=== PATIENT | male | born 1955 | race African-American/Black ===

== ENCOUNTER 2017-01-06 11:33 | Emergency (ER) | payer OTHER, MEDICARE ==
[~2017-01-06] VITALS: Ht 190.5 cm; Wt 108.9 kg
[~2017-01-06 11:33] MED LIST: ALBU83IN; FLUN7IN; MOMETASONE; ORASONE; SING10TA31; TERA10CA3; VICODIN
[2017-01-06] MEDS ORDERED: [UNRECOGNIZED DRUG - CODE] PO (12:03)
[2017-01-06] MEDS ORDERED: LATA5OPD OU (12:03)
[2017-01-06] MEDS ORDERED: BENA25TA9 PO (12:03)
[2017-01-06] MEDS ORDERED: ALLO100T PO (12:03)
[2017-01-06] MEDS ORDERED: AZEL0.1S3 (12:03)
[2017-01-06] MEDS ORDERED: SILD1TAB8 PO (12:03)
[2017-01-06] MEDS ORDERED: CLON0.5T PO (12:03)
[2017-01-06] MEDS ORDERED: OMEP20CA3 PO (12:03)
[2017-01-06] MEDS ORDERED: ASPI1TAB24 PO (12:03)
[2017-01-06] MEDS ORDERED: CLON-412 PO (12:03)
[2017-01-06] MEDS ORDERED: BUDE0.5S6 INH (12:03)
[2017-01-06] MEDS ORDERED: DOXE100CA PO (12:03)
[2017-01-06] MEDS ORDERED: OXYC1TAB23 PO (12:03)
[2017-01-06] MEDS ORDERED: CETI10TA PO (12:03)
[2017-01-06] MEDS ORDERED: K-TA10TA2 PO (12:03)
[2017-01-06] MEDS ORDERED: METO100T PO (12:03)
[2017-01-06] MEDS ORDERED: [UNRECOGNIZED DRUG - CODE] PO (12:03)
[2017-01-06] MEDS ORDERED: HYDR25TAB PO (12:03)
[2017-01-06] MEDS ORDERED: FLUT1SPR2 (12:03)
[2017-01-06] MEDS ORDERED: ASPIRIN 81 MG CHEW TABLET PO ONE (12:15)
[2017-01-06] MEDS ORDERED: MORPHINE 2 MG/ML 1ML SYRINGE IV PRN (12:15)
[2017-01-06] MEDS: NITROGLYCERIN 0.4 MG SUBL TABLET SL PRN ×3 (12:27→12:41)
[2017-01-06 12:28] LABS: BASO % 0.4 % (0.0-1.0); EOS # 0.5 K/mm3 (0.0-0.50); EOS % 5.4 % (0.0-3.0); LARGE UNSTAINED CELL # 0.2 K/mm3 (0.0-0.4); LARGE UNSTAINED CELL % 1.7 % (0.0-4.0); LYMPH # 2.9 K/mm3 (1.5-4.5); LYMPH % 30.9 % (24.0-44.0); MEAN CORPUSCULAR HEMOGLOBIN 32.6 pg (27.0-33.0); MEAN CORPUSCULAR HGB CONC 34.5 g/dl (32.0-36.5); MEAN CORPUSCULAR VOLUME 94.4 fl (80.0-96.0); MONO # 0.3 K/mm3 (0.0-0.8); MONO % 3.6 % (0.0-5.0); NEUTROPHILS # 5.2 K/mm3 (1.8-7.7); NEUTROPHILS % 58.1 % (36.0-66.0); PLATELET COUNT, AUTOMATED 317 k/mm3 (150-450); RED CELL DISTRIBUTION WIDTH 12.6 % (11.5-14.5); WHITE BLOOD COUNT 8.9 K/mm3 (4.0-10.0)
[2017-01-06 12:41] VITALS: BP 135/91
[2017-01-06 12:52] LABS: ANION GAP 7 MEQ/L (8-16); BLOOD UREA NITROGEN 10 MG/DL (7-18); CARBON DIOXIDE LEVEL 26 MEQ/L (21-32); CHLORIDE LEVEL 104 MEQ/L (98-107); CREATININE FOR GFR 1.11 MG/DL (0.70-1.30); GLOMERULAR FILTRATION RATE > 60.0 (>56); GLUCOSE, FASTING 104 MG/DL (70-105); POTASSIUM SERUM 4.2 MEQ/L (3.5-5.1); SODIUM LEVEL 137 MEQ/L (136-145)
--- NOTE | 2017-01-06 12:59 | REP ---
Clinical: Chest pain . Comparison: 08/21/2011 . Technique: PA and lateral. Findings: The mediastinum and cardiac silhouette are normal. The lung french are clear and without acute consolidation, effusion, or pneumothorax. The skeletal structures are intact and normal. Impression: 1. No acute cardiopulmonary process. Signed by Mirza Sommer MD 01/06/2017 12:50 P
[2017-01-06] MEDS ORDERED: GI COCKTAIL 50ML BTL(HYOSCYAMINE/MAALOX/LIDOCAINE VISCOUS)(1:3:1) PO ONE (13:15)
[2017-01-06 18:20] VITALS: BP 181/95
--- NOTE | 2017-01-07 20:42 | ECGEPIP ---
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
--- NOTE | 2017-01-07 20:43 | ECGEPIP ---
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
--- NOTE | 2017-01-07 20:52 | ECGEPIP ---
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
== END 2017-01-06 18:30 | disposition home or self-care (01) ==
LOC: M ED 13:56
DX: K21.9 Gastro-esophageal reflux disease without esophagitis (principal); F43.10 Post-traumatic stress disorder, unspecified; Z87.891 Personal history of nicotine dependence; Z88.8 Allergy status to other drugs, medicaments and biological substances; Z79.899 Other long term (current) drug therapy; Z79.51 Long term (current) use of inhaled steroids

== ENCOUNTER → 2017-06-23 | Outpatient (CLI) | payer OTHER ==
[~2017-06-23] MED LIST changes: +ALLO100T PO; +ASPI-161 PO; +AZEL0.1S3; +BENA25TA10 PO; +BUDE0.5S6 INH; +CETI10TA PO; +CLON-412 PO; +CLON0.5T PO; +D32000CA PO; +DOXE100CA PO; +FLUT1SPR2; +HYDR25TAB PO; +K-TA10TA2 PO; +LATA5OPD OU; +METO100T5 PO; +OMEP20CA3 PO; +OXYC1TAB23 PO; +SILD1TAB8 PO; +[UNRECOGNIZED DRUG - CODE] PO
--- NOTE | 2017-06-23 16:09 | REP ---
Clinical: Abdominal pain and bloating with diarrhea. Technique: Upright view of the chest with supine and upright views of the abdomen and pelvis. Findings: Frontal upright view of the chest demonstrates no acute cardiopulmonary process or free air below the diaphragm to suspect pneumoperitoneum. Supine and upright views of the abdomen and pelvis demonstrate nonspecific bowel gas pattern without obstruction or perforation. No organomegaly. No abnormal calcifications. Skeletal structures normal for age. Impression: Nonspecific bowel gas pattern. Signed by Mirza Sommer MD 06/23/2017 04:02 P
== END ==
LOC: M RAD 15:32
PROVIDERS: ATTEND Physician Assistant Medical
DX: R19.7 Diarrhea, unspecified (principal); R14.0 Abdominal distension (gaseous)

== ENCOUNTER → 2017-06-23 | Outpatient (REF) | payer OTHER, MEDICARE | LOC: M LAB REF 15:31 | PROVIDERS: ATTEND Physician Assistant Medical | DX: R19.7 Diarrhea, unspecified (principal) ==

== ENCOUNTER → 2018-05-05 | Outpatient (CLI) | payer OTHER | LOC: M ONCR 10:00 | DX: C34.31 Malignant neoplasm of lower lobe, right bronchus or lung (principal) | CPT/HCPCS: G0463 ==

== ENCOUNTER → 2018-05-17 | Outpatient (RCR) | payer OTHER | LOC: M ONCR 09:38 | DX: C34.31 Malignant neoplasm of lower lobe, right bronchus or lung (principal) | CPT/HCPCS: 77334 ==

== ENCOUNTER 2018-05-18 15:39 | Outpatient (RCR) | payer OTHER | END 2018-06-17 | LOC: M ONCR 15:39 | DX: C34.31 Malignant neoplasm of lower lobe, right bronchus or lung (principal) | CPT/HCPCS: 77300 ==

== ENCOUNTER → 2018-06-08 | Outpatient (REF) | payer OTHER ==
[2018-06-08 11:23] LABS: MAGNESIUM LEVEL 2.1 MG/DL (1.8-2.4)
[2018-06-08 11:27] LABS: APPEARANCE, URINE CLEAR (CLEAR); BACTERIA, URINE AUTO NEGATIVE (NEGATIVE); BILIRUBIN, URINE AUTO NEGATIVE (NEGATIVE); BLOOD, URINE BLOOD NEGATIVE (NEGATIVE); COLOR, URINE STRAW (YELLOW); GLUCOSE, URINE (UA) AUTO NEGATIVE (NEGATIVE); KETONE, URINE AUTO NEGATIVE (NEGATIVE); LEUKOCYTE ESTERASE, URINE AUTO NEGATIVE (NEGATIVE); NITRITE, URINE AUTO NEGATIVE (NEGATIVE); PROTEIN, URINE AUTO NEGATIVE (NEGATIVE); RBC, URINE AUTO 0 /HPF (0-3); SPECIFIC GRAVITY URINE AUTO 1.008 (1.002-1.035); SQUAMOUS EPITHELIAL CELL UR AU 0 /HPF (0-6); UROBILINOGEN, URINE AUTO 0.2 mg/dL (0.0-2.0); WBC, URINE AUTO 1 /HPF (0-3)
[2018-06-08 12:32] LABS: CREATININE, URINE 53.7 MG/DL; CREATININE,RANDOM URINE 53.7 MG/DL; MALB URINE SIEMENS 51.2 MG/L; MAU/CREAT RATIO 95.3 MCG/MG (0.0-30.0); SODIUM,RANDOM URINE 51 MEQ/L
== END ==
LOC: M LAB REF 10:57
DX: C34.31 Malignant neoplasm of lower lobe, right bronchus or lung (principal); N17.9 Acute kidney failure, unspecified; E86.1 Hypovolemia; Z87.891 Personal history of nicotine dependence; Z85.46 Personal history of malignant neoplasm of prostate

== ENCOUNTER 2018-06-09 10:44 | Inpatient (IN) | payer MEDICARE, OTHER ==
[2018-06-09] MEDS ORDERED: ONDANSETRON 4MG/2ML VIAL (J2405) IV (11:45)
[2018-06-09 12:04] LABS: BASO % 0.2 % (0.0-1.0); EOS % 0.9 % (0.0-3.0); HEMOGLOBIN 10.8 g/dl (13.5-17.5); IMMATURE GRANULOCYTE % 0.7 % (0-3.0); LYMPH % 21.6 % (24.0-44.0); MEAN CORPUSCULAR HEMOGLOBIN 33.3 pg (27.0-33.0); MEAN CORPUSCULAR VOLUME 92.6 fl (80.0-96.0); MONO # 0.1 10^3/uL (0.0-0.8); MONO % 2.4 % (0.0-5.0); NEUTROPHILS # 3.4 10^3/uL (1.8-7.7); NEUTROPHILS % 74.2 % (36.0-66.0); PLATELET COUNT, AUTOMATED 271 10^3/uL (150-450); RED BLOOD COUNT 3.24 10^6/uL (4.30-6.10); RED CELL DISTRIBUTION WIDTH 11.6 % (11.5-14.5); WHITE BLOOD COUNT 4.5 10^3/uL (4.0-10.0)
[2018-06-09 12:24] LABS: ANION GAP 10 MEQ/L (8-16); BLOOD UREA NITROGEN 27 MG/DL (7-18); CALCIUM LEVEL 8.3 MG/DL (8.8-10.2); CARBON DIOXIDE LEVEL 25 MEQ/L (21-32); CHLORIDE LEVEL 96 MEQ/L (98-107); GLOMERULAR FILTRATION RATE 41.8 (>49); GLUCOSE, FASTING 78 MG/DL (70-100); POTASSIUM SERUM 3.5 MEQ/L (3.5-5.1); SODIUM LEVEL 131 MEQ/L (136-145)
[2018-06-09] MEDS ORDERED: PROCHLORPERAZINE 5 MG TAB (S0183) PO (13:00)
[2018-06-09] MEDS ORDERED: SILDENAFIL CITRATE 20 MG TABLET (REVATIO) PO (13:00)
[2018-06-09] MEDS ORDERED: ALBUTEROL 90 MCG/ACT 8GM HFA INHALER INH (13:00)
[2018-06-09] MEDS ORDERED: ONDANSETRON 4 MG TAB (S0181) PO (13:00)
[2018-06-09 13:30] LABS: ALBUMIN 3.3 GM/DL (3.2-5.2); CHOLESTEROL LEVEL 133 MG/DL (<200); CHOLESTEROL RISK RATIO 2.293 (<5); HDL CHOLESTEROL 58 MG/DL (>40); LDL CHOLESTEROL 58.6 MG/DL (<100); MAGNESIUM LEVEL 1.9 MG/DL (1.8-2.4); NON-HDL-C 75 MG/DL; PHOSPHORUS LEVEL 3.1 MG/DL (2.5-4.9); TRIGLYCERIDES LEVEL 82 MG/DL (<150)
[2018-06-09] MEDS ORDERED: HEPARIN SOD (PORCINE) 5000 UNITS/ML VIAL SC (14:00)
[2018-06-09 14:49] LABS: OSMOLALITY SERUM 270 MOSM/KG (275-295)
[2018-06-09 18:28] LABS: OSMOLALITY URINE 394 MOSM/KG (500-800)
[2018-06-09 18:36] LABS: APPEARANCE, URINE CLEAR (CLEAR); BACTERIA, URINE AUTO NEGATIVE (NEGATIVE); BILIRUBIN, URINE AUTO NEGATIVE (NEGATIVE); BLOOD, URINE BLOOD NEGATIVE (NEGATIVE); COLOR, URINE YELLOW (YELLOW); GLUCOSE, URINE (UA) AUTO NEGATIVE (NEGATIVE); KETONE, URINE AUTO NEGATIVE (NEGATIVE); LEUKOCYTE ESTERASE, URINE AUTO NEGATIVE (NEGATIVE); NITRITE, URINE AUTO NEGATIVE (NEGATIVE); PROTEIN, URINE AUTO NEGATIVE (NEGATIVE); RBC, URINE AUTO 2 /HPF (0-3); SQUAMOUS EPITHELIAL CELL UR AU 0 /HPF (0-6); UROBILINOGEN, URINE AUTO 0.2 mg/dL (0.0-2.0); WBC, URINE AUTO 1 /HPF (0-3)
[2018-06-09 18:38] LABS: CREATININE,RANDOM URINE 94.2 MG/DL; SODIUM,RANDOM URINE 64 MEQ/L; TOTAL PROTEIN,RANDOM URINE 13.2 MG/DL (0.0-12.0)
[2018-06-09 19:15] LABS: ALBUMIN 3.4 GM/DL (3.2-5.2); ANION GAP 9 MEQ/L (8-16); BLOOD UREA NITROGEN 26 MG/DL (7-18); CALCIUM LEVEL 8.5 MG/DL (8.8-10.2); CARBON DIOXIDE LEVEL 26 MEQ/L (21-32); CHLORIDE LEVEL 100 MEQ/L (98-107); CREATININE FOR GFR 2.19 MG/DL (0.70-1.30); GLOMERULAR FILTRATION RATE 39.8 (>49); GLUCOSE, FASTING 88 MG/DL (70-100); PHOSPHORUS LEVEL 3.2 MG/DL (2.5-4.9); POTASSIUM SERUM 3.8 MEQ/L (3.5-5.1); SODIUM LEVEL 135 MEQ/L (136-145)
[2018-06-09] MEDS: AZELASTINE 137MCG NASAL SPY 30 ML (ASTELIN) (21:33)
[2018-06-09] MEDS: FLUTICASONE PROP 0.05% NASAL SPRAY 16 GM (FLONASE) (21:33)
[2018-06-09] MEDS: diphenhydrAMINE 50 MG CAP PO (21:34)
[2018-06-09] MEDS: POTASSIUM CHLORIDE 10 MEQ SR TABLET PO (21:34)
[2018-06-09] MEDS: DOXEPIN 25 MG CAP PO (21:34)
[2018-06-09] MEDS: OMEPRAZOLE 20 MG CAP PO (21:34)
[2018-06-09] MEDS: cloNIDine 0.1 MG TAB PO (21:35)
[2018-06-09] MEDS: METOPROLOL TARTRATE 100 MG TAB PO (21:35)
[2018-06-09] MEDS: RIVAROXABAN 15 MG TAB (XARELTO) PO (21:36)
[2018-06-09] MEDS: LATANOPROST 0.005% OPHTH SOLN 2.5 ML OU (21:36)
[2018-06-09] MEDS: DORZOLAMIDE 2% OPHTH SOLN 10 ML BTL OU (21:36)
[2018-06-09] MEDS: clonazePAM 0.5 MG TAB PO (21:41)
[2018-06-09] MEDS: DESMOPRESSIN 4 MCG/ML INJ VIAL/AMP (J2597) SC (22:39)
[2018-06-09] MEDS: D5W 1000 ML IV (22:39)
[2018-06-09 23:01] LABS: ANION GAP 5 MEQ/L (8-16); BLOOD UREA NITROGEN 28 MG/DL (7-18); CALCIUM LEVEL 8.2 MG/DL (8.8-10.2); CARBON DIOXIDE LEVEL 29 MEQ/L (21-32); CHLORIDE LEVEL 101 MEQ/L (98-107); CREATININE FOR GFR 2.23 MG/DL (0.70-1.30); GLUCOSE, FASTING 89 MG/DL (70-100); POTASSIUM SERUM 3.7 MEQ/L (3.5-5.1); SODIUM LEVEL 135 MEQ/L (136-145)
[2018-06-09] MEDS: D5W 1,000 ML IV (23:03)
[2018-06-10] MEDS: D5W 1,000 ML IV (02:40)
[2018-06-10 03:01] LABS: ANION GAP 10 MEQ/L (8-16); BLOOD UREA NITROGEN 26 MG/DL (7-18); CALCIUM LEVEL 7.8 MG/DL (8.8-10.2); CARBON DIOXIDE LEVEL 23 MEQ/L (21-32); CHLORIDE LEVEL 102 MEQ/L (98-107); CREATININE FOR GFR 1.94 MG/DL (0.70-1.30); GLOMERULAR FILTRATION RATE 45.8 (>49); GLUCOSE, FASTING 117 MG/DL (70-100); POTASSIUM SERUM 4.1 MEQ/L (3.5-5.1); SODIUM LEVEL 135 MEQ/L (136-145)
[2018-06-10 08:28] LABS: ANION GAP 7 MEQ/L (8-16); BLOOD UREA NITROGEN 24 MG/DL (7-18); CALCIUM LEVEL 8.2 MG/DL (8.8-10.2); CARBON DIOXIDE LEVEL 23 MEQ/L (21-32); CHLORIDE LEVEL 99 MEQ/L (98-107); CREATININE FOR GFR 1.87 MG/DL (0.70-1.30); GLOMERULAR FILTRATION RATE 47.8 (>49); GLUCOSE, FASTING 117 MG/DL (70-100); POTASSIUM SERUM 4.3 MEQ/L (3.5-5.1); SODIUM LEVEL 129 MEQ/L (136-145)
[2018-06-10 08:48] LABS: CORTISOL AM 0.7 UG/DL (4.3-22.4)
[2018-06-10] MEDS: OMEPRAZOLE 20 MG CAP PO (08:55)
[2018-06-10] MEDS: ALLOPURINOL 100 MG TAB PO (08:55)
[2018-06-10] MEDS: DOXEPIN 25 MG CAP PO (08:55)
[2018-06-10] MEDS: CETIRIZINE (ZyrTEC) 10 MG TAB PO (08:55)
[2018-06-10] MEDS: VITAMIN D 1,000 INTERNATIONAL UNITS TABLET PO (08:55)
[2018-06-10] MEDS: METOPROLOL TARTRATE 100 MG TAB PO (08:55)
[2018-06-10] MEDS: RIVAROXABAN 15 MG TAB (XARELTO) PO (08:56)
[2018-06-10] MEDS: FLUTICASONE PROP 0.05% NASAL SPRAY 16 GM (FLONASE) (08:56)
[2018-06-10] MEDS: AZELASTINE 137MCG NASAL SPY 30 ML (ASTELIN) (08:56)
[2018-06-10] MEDS: DORZOLAMIDE 2% OPHTH SOLN 10 ML BTL OU (08:56)
[2018-06-10] MEDS: cloNIDine 0.1 MG TAB PO (08:56)
[2018-06-10] MEDS: clonazePAM 0.5 MG TAB PO (09:02)
[2018-06-10] MEDS: SODIUM CHLORIDE 0.9% INJ 10 ML SYR IV ×3 (09:25→16:29)
[2018-06-10 11:22] LABS: ANION GAP 7 MEQ/L (8-16); BLOOD UREA NITROGEN 25 MG/DL (7-18); CALCIUM LEVEL 8.4 MG/DL (8.8-10.2); CARBON DIOXIDE LEVEL 26 MEQ/L (21-32); CHLORIDE LEVEL 98 MEQ/L (98-107); CREATININE FOR GFR 1.95 MG/DL (0.70-1.30); GLOMERULAR FILTRATION RATE 45.5 (>49); GLUCOSE, FASTING 97 MG/DL (70-100); POTASSIUM SERUM 4.2 MEQ/L (3.5-5.1); SODIUM LEVEL 131 MEQ/L (136-145)
[2018-06-10 14:36] LABS: ANION GAP 7 MEQ/L (8-16); BLOOD UREA NITROGEN 25 MG/DL (7-18); CALCIUM LEVEL 8.1 MG/DL (8.8-10.2); CARBON DIOXIDE LEVEL 24 MEQ/L (21-32); CHLORIDE LEVEL 100 MEQ/L (98-107); CREATININE FOR GFR 1.84 MG/DL (0.70-1.30); GLOMERULAR FILTRATION RATE 48.7 (>49); GLUCOSE, FASTING 119 MG/DL (70-100); SODIUM LEVEL 131 MEQ/L (136-145)
== END 2018-06-10 16:40 | disposition home or self-care (01) | DRG 644 ==
LOC: M ED 10:44 → M ED INP 11:36 → M MS5PR 17:20
DX: E22.2 Syndrome of inappropriate secretion of antidiuretic hormone (principal); C34.31 Malignant neoplasm of lower lobe, right bronchus or lung; N17.9 Acute kidney failure, unspecified; E86.1 Hypovolemia; Z87.891 Personal history of nicotine dependence; Z85.46 Personal history of malignant neoplasm of prostate; M10.9 Gout, unspecified; K21.9 Gastro-esophageal reflux disease without esophagitis; N18.3 Chronic kidney disease, stage 3 (moderate); J44.9 Chronic obstructive pulmonary disease, unspecified; I12.9 Hypertensive chronic kidney disease with stage 1 through stage 4 chronic kidney disease, or unspecified chronic kidney disease; F43.10 Post-traumatic stress disorder, unspecified; Z88.2 Allergy status to sulfonamides; Z88.8 Allergy status to other drugs, medicaments and biological substances; Z88.6 Allergy status to analgesic agent; Z79.899 Other long term (current) drug therapy

== ENCOUNTER → 2018-06-13 | Outpatient (REF) | payer MEDICARE, OTHER ==
[2018-06-13 10:42] LABS: TOTAL VOLUME, URINE 2200 ML
== END ==
LOC: M LAB REF 09:23
DX: C34.90 Malignant neoplasm of unspecified part of unspecified bronchus or lung (principal)
CPT/HCPCS: 81050

== ENCOUNTER 2018-06-21 10:13 | Outpatient (RCR) | payer OTHER | END 2018-07-17 | LOC: M ONCR 10:13 | DX: C34.31 Malignant neoplasm of lower lobe, right bronchus or lung (principal) | CPT/HCPCS: 77336 ==

== ENCOUNTER 2018-08-03 03:20 | Inpatient (IN) | payer OTHER, MEDICARE ==
[2018-08-03 04:13] LABS: BASO % 0.3 % (0.0-1.0); EOS # 0.1 10^3/uL (0.0-0.50); HEMATOCRIT 26.4 % (42.0-52.0); HEMOGLOBIN 9.1 g/dl (13.5-17.5); IMMATURE GRANULOCYTE % 0.3 % (0-3.0); LYMPH # 1.6 10^3/uL (1.5-4.5); LYMPH % 17.8 % (24.0-44.0); MEAN CORPUSCULAR HEMOGLOBIN 33.5 pg (27.0-33.0); MEAN CORPUSCULAR HGB CONC 34.5 g/dl (32.0-36.5); MEAN CORPUSCULAR VOLUME 97.1 fl (80.0-96.0); MONO # 0.8 10^3/uL (0.0-0.8); MONO % 8.3 % (0.0-5.0); NEUTROPHILS # 6.5 10^3/uL (1.8-7.7); NEUTROPHILS % 72.3 % (36.0-66.0); PLATELET COUNT, AUTOMATED 448 10^3/uL (150-450); RED BLOOD COUNT 2.72 10^6/uL (4.30-6.10); RED CELL DISTRIBUTION WIDTH 13.9 % (11.5-14.5)
[2018-08-03] MEDS: NS 500 ML IV ×2 (04:15→04:45)
[2018-08-03 04:41] LABS: ALBUMIN 3.2 GM/DL (3.2-5.2); ALBUMIN/GLOBULIN RATIO 0.91 (1.00-1.93); ALKALINE PHOSPHATASE 136 U/L (45-117); ALT/SGPT 30 U/L (12-78); ANION GAP 11 MEQ/L (8-16); AST/SGOT 18 U/L (7-37); BILIRUBIN,DIRECT 0.1 MG/DL (0.0-0.2); BILIRUBIN,TOTAL 0.4 MG/DL (0.2-1.0); BLOOD UREA NITROGEN 13 MG/DL (7-18); CARBON DIOXIDE LEVEL 27 MEQ/L (21-32); CHLORIDE LEVEL 102 MEQ/L (98-107); CREATININE FOR GFR 1.87 MG/DL (0.70-1.30); GLOMERULAR FILTRATION RATE 47.8 (>49); GLUCOSE, FASTING 113 MG/DL (70-100); LIPASE 74 U/L (73-393); POTASSIUM SERUM 3.2 MEQ/L (3.5-5.1); SODIUM LEVEL 140 MEQ/L (136-145); TOTAL PROTEIN 6.7 GM/DL (6.4-8.2)
[2018-08-03 04:43] LABS: LACTIC ACID SEPSIS PROTOCOL 1.4 MMOL/L (0.4-2.0)
[2018-08-03] MEDS: POTASSIUM CHLORIDE 10 MEQ SR TABLET PO ×3 (04:45→11:37)
[2018-08-03] MEDS: MORPHINE 4 MG/ML 1ML VIAL/SYRINGE (J2270) IV (05:00)
[2018-08-03] MEDS: metroNIDAZOLE 500 MG in APPROPRIATE DILUENT 1 EA IV ×3 (06:15→21:01)
[2018-08-03 06:46] LABS: APPEARANCE, URINE CLEAR (CLEAR); BACTERIA, URINE AUTO NEGATIVE (NEGATIVE); BILIRUBIN, URINE AUTO NEGATIVE (NEGATIVE); BLOOD, URINE BLOOD NEGATIVE (NEGATIVE); COLOR, URINE YELLOW (YELLOW); GLUCOSE, URINE (UA) AUTO NEGATIVE (NEGATIVE); KETONE, URINE AUTO NEGATIVE (NEGATIVE); LEUKOCYTE ESTERASE, URINE AUTO NEGATIVE (NEGATIVE); NITRITE, URINE AUTO NEGATIVE (NEGATIVE); PROTEIN, URINE AUTO NEGATIVE (NEGATIVE); RBC, URINE AUTO 1 /HPF (0-3); SPECIFIC GRAVITY URINE AUTO 1.016 (1.002-1.035); SQUAMOUS EPITHELIAL CELL UR AU 0 /HPF (0-6); UROBILINOGEN, URINE AUTO 0.2 mg/dL (0.0-2.0); WBC, URINE AUTO 1 /HPF (0-3)
[2018-08-03] MEDS ORDERED: ONDANSETRON 4MG/2ML VIAL (J2405) IV (07:45)
[2018-08-03] MEDS ORDERED: ACETAMINOPHEN TAB 650MG DOSE (2X325MG) PO (07:45)
[2018-08-03] MEDS ORDERED: clonazePAM 0.5 MG TAB PO (09:30)
[2018-08-03] MEDS ORDERED: ALBUTEROL 90 MCG/ACT 8GM HFA INHALER INH (09:30)
[2018-08-03] MEDS: ENOXAPARIN 30 MG/0.3 ML SYR (J1650) SC (10:26)
[2018-08-03] MEDS: METOPROLOL TARTRATE 100 MG TAB PO ×2 (10:27→20:57)
[2018-08-03] MEDS: VITAMIN D 1,000 INTERNATIONAL UNITS TABLET PO (10:27)
[2018-08-03] MEDS: ALLOPURINOL 100 MG TAB PO (10:27)
[2018-08-03] MEDS: NS 1,000 ML IV ×2 (10:28→20:54)
[2018-08-03] MEDS: CETIRIZINE (ZyrTEC) 10 MG TAB PO (10:28)
[2018-08-03] MEDS: ASPIRIN 81 MG ENTERIC TAB PO (10:28)
[2018-08-03] MEDS: cloNIDine 0.1 MG TAB PO ×2 (10:28→20:56)
[2018-08-03 10:56] LABS: MAGNESIUM LEVEL 2.3 MG/DL (1.8-2.4)
[2018-08-03] MEDS: DOXEPIN 25 MG CAP PO ×2 (11:36→20:55)
[2018-08-03] MEDS: PERCOCET 5MG/325MG TAB PO ×2 (11:38→21:00)
[2018-08-03] MEDS: VITAMIN A & D OINTMENT 60 GM TOP ×4 (11:39→20:58)
[2018-08-03] MEDS: DORZOLAMIDE 2% OPHTH SOLN 10 ML BTL OU ×2 (11:39→20:57)
[2018-08-03 13:03] LABS: PSA SCREENING 2.27 NG/ML (< 4.0)
[2018-08-03] MEDS: CIPROFLOXACIN 200 MG in APPROPRIATE DILUENT 1 EA IV (15:16)
[2018-08-03] MEDS ORDERED: PREPARATION H OINTMENT (HEMORRHOID) PR (15:30)
[2018-08-03] MEDS ORDERED: ANUSOL HC CREAM 30GM TOP (16:30)
[2018-08-03 18:56] LABS: ANION GAP 9 MEQ/L (8-16); BLOOD UREA NITROGEN 14 MG/DL (7-18); CALCIUM LEVEL 8.4 MG/DL (8.8-10.2); CARBON DIOXIDE LEVEL 26 MEQ/L (21-32); CHLORIDE LEVEL 107 MEQ/L (98-107); CREATININE FOR GFR 1.64 MG/DL (0.70-1.30); GLOMERULAR FILTRATION RATE 55.6 (>49); GLUCOSE, FASTING 99 MG/DL (70-100); MAGNESIUM LEVEL 2.2 MG/DL (1.8-2.4); POTASSIUM SERUM 3.8 MEQ/L (3.5-5.1); SODIUM LEVEL 142 MEQ/L (136-145)
[2018-08-03 19:08] LABS: LACTIC ACID SEPSIS PROTOCOL 2.1 MMOL/L (0.4-2.0)
[2018-08-03] MEDS: diphenhydrAMINE 50 MG CAP PO (20:55)
[2018-08-03] MEDS: PRAZOSIN 1 MG CAP PO (20:57)
[2018-08-03] MEDS: LATANOPROST 0.005% OPHTH SOLN 2.5 ML OU (20:58)
[2018-08-04] MEDS: CIPROFLOXACIN 200 MG in APPROPRIATE DILUENT 1 EA IV (03:06)
[2018-08-04] MEDS: metroNIDAZOLE 500 MG in APPROPRIATE DILUENT 1 EA IV (05:52)
[2018-08-04 07:08] LABS: HEMATOCRIT 25.6 % (42.0-52.0); HEMOGLOBIN 8.6 g/dl (13.5-17.5); MEAN CORPUSCULAR HEMOGLOBIN 33.1 pg (27.0-33.0); MEAN CORPUSCULAR HGB CONC 33.6 g/dl (32.0-36.5); MEAN CORPUSCULAR VOLUME 98.5 fl (80.0-96.0); PLATELET COUNT, AUTOMATED 481 10^3/uL (150-450); RED CELL DISTRIBUTION WIDTH 13.4 % (11.5-14.5); WHITE BLOOD COUNT 7.7 10^3/uL (4.0-10.0)
[2018-08-04 07:20] LABS: LACTIC ACID SEPSIS PROTOCOL 1.7 MMOL/L (0.4-2.0)
[2018-08-04 07:31] LABS: ANION GAP 9 MEQ/L (8-16); BLOOD UREA NITROGEN 11 MG/DL (7-18); CALCIUM LEVEL 8.1 MG/DL (8.8-10.2); CARBON DIOXIDE LEVEL 24 MEQ/L (21-32); CHLORIDE LEVEL 109 MEQ/L (98-107); CREATININE FOR GFR 1.39 MG/DL (0.70-1.30); GLOMERULAR FILTRATION RATE > 60.0 (>49); GLUCOSE, FASTING 116 MG/DL (70-100); MAGNESIUM LEVEL 1.9 MG/DL (1.8-2.4); POTASSIUM SERUM 3.5 MEQ/L (3.5-5.1); SODIUM LEVEL 142 MEQ/L (136-145)
[2018-08-04] MEDS: NS 1,000 ML IV ×2 (08:15→16:30)
[2018-08-04] MEDS: CETIRIZINE (ZyrTEC) 10 MG TAB PO (08:23)
[2018-08-04] MEDS: DOXEPIN 25 MG CAP PO ×2 (08:24→20:36)
[2018-08-04] MEDS: cloNIDine 0.1 MG TAB PO ×2 (08:24→20:29)
[2018-08-04] MEDS: METOPROLOL TARTRATE 100 MG TAB PO ×2 (08:24→20:29)
[2018-08-04] MEDS: ALLOPURINOL 100 MG TAB PO (08:24)
[2018-08-04] MEDS: VITAMIN D 1,000 INTERNATIONAL UNITS TABLET PO (08:24)
[2018-08-04] MEDS: ASPIRIN 81 MG ENTERIC TAB PO (08:24)
[2018-08-04] MEDS: DORZOLAMIDE 2% OPHTH SOLN 10 ML BTL OU ×2 (08:25→20:37)
[2018-08-04] MEDS: VITAMIN A & D OINTMENT 60 GM TOP ×4 (08:25→20:37)
[2018-08-04] MEDS: ENOXAPARIN 30 MG/0.3 ML SYR (J1650) SC (08:25)
[2018-08-04] MEDS: POTASSIUM CHLORIDE 10 MEQ SR TABLET PO (09:56)
[2018-08-04] MEDS: MAG SULF 1GM/100ML (MAG RUN) 1 GM in APPROPRIATE DILUENT 1 EA IV (09:57)
[2018-08-04] MEDS: PERCOCET 5MG/325MG TAB PO (09:59)
[2018-08-04] MEDS: CIPROFLOXACIN 400 MG in APPROPRIATE DILUENT 1 EA IV (14:04)
[2018-08-04] MEDS: diphenhydrAMINE 50 MG CAP PO (20:36)
[2018-08-04] MEDS: PRAZOSIN 1 MG CAP PO (20:37)
[2018-08-04] MEDS: LATANOPROST 0.005% OPHTH SOLN 2.5 ML OU (20:38)
[2018-08-05] MEDS: CIPROFLOXACIN 400 MG in APPROPRIATE DILUENT 1 EA IV (02:38)
[2018-08-05 06:40] LABS: HEMATOCRIT 22.6 % (42.0-52.0); HEMOGLOBIN 7.5 g/dl (13.5-17.5); MEAN CORPUSCULAR HEMOGLOBIN 32.2 pg (27.0-33.0); MEAN CORPUSCULAR HGB CONC 33.2 g/dl (32.0-36.5); PLATELET COUNT, AUTOMATED 415 10^3/uL (150-450); RED BLOOD COUNT 2.33 10^6/uL (4.30-6.10); RED CELL DISTRIBUTION WIDTH 13.2 % (11.5-14.5); WHITE BLOOD COUNT 4.9 10^3/uL (4.0-10.0)
[2018-08-05 06:56] LABS: ANION GAP 9 MEQ/L (8-16); BLOOD UREA NITROGEN 7 MG/DL (7-18); CALCIUM LEVEL 7.7 MG/DL (8.8-10.2); CARBON DIOXIDE LEVEL 23 MEQ/L (21-32); CHLORIDE LEVEL 109 MEQ/L (98-107); CREATININE FOR GFR 1.07 MG/DL (0.70-1.30); GLOMERULAR FILTRATION RATE > 60.0 (>49); GLUCOSE, FASTING 100 MG/DL (70-100); MAGNESIUM LEVEL 1.6 MG/DL (1.8-2.4); POTASSIUM SERUM 3.4 MEQ/L (3.5-5.1); SODIUM LEVEL 141 MEQ/L (136-145)
[2018-08-05] MEDS: ALLOPURINOL 100 MG TAB PO (08:04)
[2018-08-05] MEDS: ASPIRIN 81 MG ENTERIC TAB PO (08:04)
[2018-08-05] MEDS: cloNIDine 0.1 MG TAB PO (08:04)
[2018-08-05] MEDS: METOPROLOL TARTRATE 100 MG TAB PO (08:05)
[2018-08-05] MEDS: VITAMIN D 1,000 INTERNATIONAL UNITS TABLET PO (08:05)
[2018-08-05] MEDS: CETIRIZINE (ZyrTEC) 10 MG TAB PO (08:05)
[2018-08-05] MEDS: POTASSIUM CHLORIDE 10 MEQ SR TABLET PO (08:05)
[2018-08-05] MEDS: MAG SULF 1GM/100ML (MAG RUN) 1 GM in APPROPRIATE DILUENT 1 EA IV (08:06)
[2018-08-05] MEDS: ENOXAPARIN 30 MG/0.3 ML SYR (J1650) SC (08:06)
[2018-08-05] MEDS: VITAMIN A & D OINTMENT 60 GM TOP ×2 (08:06→13:12)
[2018-08-05] MEDS: DORZOLAMIDE 2% OPHTH SOLN 10 ML BTL OU (08:07)
[2018-08-05 10:14] LABS: HEMATOCRIT 23.4 % (42.0-52.0)
[2018-08-05] MEDS: DOXEPIN 25 MG CAP PO (11:40)
[2018-08-05 12:37] LABS: HEMATOCRIT 24.1 % (42.0-52.0); HEMOGLOBIN 8.3 g/dl (13.5-17.5)
== END 2018-08-05 14:55 | disposition home or self-care (01) | DRG 372 ==
LOC: M ED 03:20 → M ED INP 07:44 → M MSPAV 09:50
DX: A04.4 Other intestinal Escherichia coli infections (principal); C34.31 Malignant neoplasm of lower lobe, right bronchus or lung; N17.9 Acute kidney failure, unspecified; D62 Acute posthemorrhagic anemia; I10 Essential (primary) hypertension; M10.9 Gout, unspecified; J44.9 Chronic obstructive pulmonary disease, unspecified; K21.9 Gastro-esophageal reflux disease without esophagitis; N18.3 Chronic kidney disease, stage 3 (moderate); E87.6 Hypokalemia; F43.10 Post-traumatic stress disorder, unspecified; Z87.891 Personal history of nicotine dependence; Z88.8 Allergy status to other drugs, medicaments and biological substances; Z88.2 Allergy status to sulfonamides; Z79.899 Other long term (current) drug therapy

== ENCOUNTER → 2018-08-17 | Outpatient (CLI) | payer OTHER, MEDICARE | LOC: M ONCR 11:07 | DX: C34.32 Malignant neoplasm of lower lobe, left bronchus or lung (principal) | CPT/HCPCS: G0463 ==

== ENCOUNTER → 2019-01-12 | Outpatient (CLI) | payer MEDICARE, OTHER ==
[~2019-01-12] MED LIST changes: +ADV250INH INH; +ASPI81TAEC PO; +AZEL0.1S; +AZEL0.1S NARES; +BACITAB PO; +CIPR-249 PO; -CLON0.5T PO; +CLON0.5T8 PO; +CLON1TAB8 PO; +DENT1.1G TEETH; +DEXA4TA PO; +DIPH50CA PO; +DORZ2OPD OU; +DORZ2SOL5 OP; +DOXE25CA PO; +FLAG500T PO; +KLOR20TA42 PO; +LIDO2.5C15 TOP; +ONDA8TAB7 PO; +PERC5TAB12 PO; +PRAZ1CAP PO; +PROC10TA4 PO; +VENTAER INH; +VITA100066 PO; +XALA0.007 OU; +XARE15TA PO; +[UNRECOGNIZED DRUG - CODE] IV; +[UNRECOGNIZED DRUG - CODE] IV; +[UNRECOGNIZED DRUG - CODE] MT; +[UNRECOGNIZED DRUG - OTHER] SS
--- NOTE | 2019-01-12 14:01 | REP ---
This x-ray: Two views. History: Decreased breath sounds. The patient has a history of lung carcinoma. Comparison chest x-ray: February 08, 2018. Findings: There is volume loss in the right hemithorax. There is blunting of the right lateral pleural angle consistent with a small right pleural effusion. There is right hilar and perihilar fullness which may be a combination of post radiation change, and for neoplasm. The left lung is essentially clear. Heart is not enlarged. Aorta is somewhat tortuous. No significant bony abnormality is appreciated. There are hypertrophic degenerative changes at the posterior costovertebral junctions as on prior study. There is a right sided Lgehbc-H-Wgke catheter in place. Impression: Small right pleural effusion suspected. Fullness right hilar region question post treatment fibrosis versus neoplasm. Electronically Signed by Peter Ramsey MD 01/12/2019 01:53 P
== END ==
LOC: M RAD 10:38
PROVIDERS: ATTEND Internal Medicine Medical Oncology
DX: C34.32 Malignant neoplasm of lower lobe, left bronchus or lung (principal)

== ENCOUNTER → 2019-02-08 | Outpatient (CLI) | payer OTHER, MEDICARE ==
[~2019-02-08] MED LIST changes: +LATA0.0013 OU; -LATA5OPD OU; +PEGPOW PO
--- NOTE | 2019-02-14 13:18 | RADONC ---
RADIATION ONCOLOGY FOLLOW-UP NOTE DATE: 02/08/2019 CHART NUMBER: [id number] DIAGNOSIS: Right lower lobe lung cancer. STAGE: III, [id number]. ECOG PERFORMANCE STATUS: 0 FOLLOW-UP NOTE: Mrs. Tee is presenting to us today for routine followup visit 7 months post completion of external beam radiation therapy. The patient presents today reporting that generally he is doing all right. He is being seen by his medical oncologist, Dr. Caceres every 3 weeks and was just seen by her yesterday. REVIEW OF SYSTEMS: The patient's review of systems is noncontributory. He denies nausea, vomiting, fevers, chills, night sweats, diplopia, headaches, anxiety or depression, anorexia, weight loss, visual disturbances, chest pain, urinary or bowel difficulties, bone pain or neurological problems. PHYSICAL EXAMINATION: The patient is a well-developed, well-nourished -[place] male in no acute distress. HEENT exam is normocephalic, atraumatic. Extraocular movements are intact. There is no palpable cervical, supraclavicular, infraclavicular, axillary, or inguinal lymphadenopathy present. Lungs are clear to auscultation and percussion. Heart has a regular rate and rhythm. Abdomen is benign with no hepatosplenomegaly, masses, or tenderness. Rectal examination reveals a normal anal sphincter tone. His prostate is smooth with no evidence of nodularity. Skeletal examination reveals no tenderness to pressure or percussion of the bony skeleton. Extremities reveal no clubbing, cyanosis, or edema. Neurologic exam is grossly intact as is the remainder of the physical examination. ASSESSMENT: The patient is continuing with his systemic therapy with his medical oncologist on a routine basis and is seeing her every 3 weeks. In light of this, I am discharging him from my followup except on a p.r.n. basis.
== END ==
LOC: M ONCR 10:39
PROVIDERS: ATTEND Radiology Radiation Oncology
DX: C34.31 Malignant neoplasm of lower lobe, right bronchus or lung (principal); Z92.3 Personal history of irradiation

== ENCOUNTER → 2019-03-10 | Outpatient (CLI) | payer MEDICARE, OTHER ==
[~2019-03-10] MED LIST changes: +GASTROGRAFIN SOLUTION 30ML (Q9963) As Ordered ONE; +ISOVUE-370 76% 100ML VIAL (Q9967) As Ordered ONE
--- NOTE | 2019-03-10 10:45 | REP ---
Clinical: Metastatic small cell lung cancer. Technique: Axial contrast enhanced images from the thoracic inlet to the upper abdomen with coronal and sagittal re-formations using 100 ml Isovue 370 intravenous contrast material. Comparison: 12/13/2017 Findings: The patient is noted to be status post right lower lobectomy. Postsurgical changes and postradiation type changes are suggested following the right hemithorax. Mild perihilar fibroatelectatic changes and small right pleural effusion are identified. Left hemithorax is relatively well aerated and essentially clear. However, very subtle irregularity along the medial basilar right lower lobe (image 78) cannot be excluded. The mediastinum demonstrates postsurgical changes with relatively normal thoracic aorta, pulmonary vasculature, and heart/pericardium. [id number]-Y-[id number] identified with tip in the right atrium. No obvious adenopathy. Osseous structures without focal abnormality noted. Impression: 1. No previous postsurgical baseline CT is available for comparison. Findings involving the right hemithorax likely represent postsurgical and postradiation type changes with small right pleural effusion. 2. Subtle changes in the basilar left lower lobe appears somewhat chronic. 3. Consider short-term follow-up examination to assess for continued active pathology. Electronically Signed by Mirza Sommer MD 03/10/2019 10:37 A
--- NOTE | 2019-03-10 10:50 | REP ---
Clinical: Small cell lung cancer. Technique: Axial contrast enhanced images from the lung bases to the pubic symphysis with coronal and sagittal re-formations using oral (per protocol) and 100 ml Isovue 370 intravenous contrast material. Delayed images of the abdomen obtained. Comparison: 08/03/2018. Findings: Lung bases demonstrate small right pleural effusion and presumed postsurgical/postradiation type changes to the right hemithorax. Liver, spleen, pancreas, gallbladder, bilateral adrenal glands and kidneys are relatively normal. Few scattered small renal hypodensities remain stable on delayed images and most compatible with benign cysts. The enteric system is without obstruction or acute inflammatory process. Normal terminal ileum and appendix identified in the right lower quadrant. Few scattered sigmoid diverticula noted without acute diverticulitis. Pelvis demonstrates normal partially distended bladder and age appropriate prostate/seminal vesicles. No ascites. No free air. No intraperitoneal or retroperitoneal adenopathy. Abdominal aorta without aneurysm or dissection. Musculoskeletal structures demonstrate degenerative changes without focal osseous abnormality. Old healed left rib fractures noted. Impression: 1. Small right pleural effusion and a presumed postsurgical/postradiation type changes in the right lung base. 2. Renal hypodensities likely represent benign cysts. 3. Few scattered sigmoid diverticula without acute diverticulitis. 4. No evidence for metastatic disease. No ascites, focal inflammatory stranding, or adenopathy identified. Electronically Signed by Mirza Sommer MD 03/10/2019 10:42 A
== END ==
LOC: M RAD 08:01
PROVIDERS: ATTEND Internal Medicine Medical Oncology
DX: C34.90 Malignant neoplasm of unspecified part of unspecified bronchus or lung (principal); J90 Pleural effusion, not elsewhere classified
CPT/HCPCS: 71260; 74177; Q9963; Q9967

== ENCOUNTER 2019-04-21 11:45 | Emergency (ER) | payer MEDICARE, OTHER ==
[~2019-04-21] VITALS: Ht 190.5 cm; Wt 105.0 kg
[~2019-04-21 11:45] MED LIST changes: +FLUC100T PO; +FOLI1TAB11 PO; -GASTROGRAFIN SOLUTION 30ML (Q9963) As Ordered ONE; -ISOVUE-370 76% 100ML VIAL (Q9967) As Ordered ONE; +KEPP250T5 PO; +MACR100C43 PO; -OMEP20CA3 PO; +OMEP20CA4 PO
--- NOTE | 2019-04-21 14:22 | REP ---
Clinical: Headache and memory loss. Technique: Standard noncontrast MRI of the brain. Findings: Mild age-related atrophic changes are appreciated. Ventricles are symmetric. White-white differentiation is maintained. Midbrain and midline structures are intact. No mass or mass effect. With the exception of subtle changes related to microvascular ischemic disease, no significant abnormal signal intensity foci identified. No evidence for acute infarction. No extra-axial collection. Calvarium is intact. Impression: Mild age-related changes. No evidence for acute intracranial pathology. Electronically Signed by Mirza Sommer MD 04/21/2019 02:13 P
[2019-04-21 14:48] VITALS: BP 116/78
== END 2019-04-21 14:56 | disposition home or self-care (01) ==
LOC: M ED 11:45
DX: R51 Headache (principal); I67.82 Cerebral ischemia; R41.0 Disorientation, unspecified; R26.89 Other abnormalities of gait and mobility; C34.01 Malignant neoplasm of right main bronchus; N28.9 Disorder of kidney and ureter, unspecified; I10 Essential (primary) hypertension; F43.10 Post-traumatic stress disorder, unspecified; J45.909 Unspecified asthma, uncomplicated; J44.9 Chronic obstructive pulmonary disease, unspecified; E22.2 Syndrome of inappropriate secretion of antidiuretic hormone; Z87.891 Personal history of nicotine dependence; Z88.6 Allergy status to analgesic agent; Z88.2 Allergy status to sulfonamides; Z88.8 Allergy status to other drugs, medicaments and biological substances; Z88.1 Allergy status to other antibiotic agents
CPT/HCPCS: 36591; 70551; 80053; 81001; 85027; 87086; 99284; J1642

== ENCOUNTER → 2019-06-08 | Outpatient (CLI) | payer MEDICARE, OTHER ==
[~2019-06-08] MED LIST changes: +AK-T0.3S; +CIPR0.2S AD; +CLON0.5T2 PO; -CLON0.5T8 PO; +NYST50SS PO; +OMEP1CAP73 PO; -OMEP20CA4 PO; +ONDA8TAB10 PO; -ONDA8TAB7 PO; +PROHANCE 279.3MG/ML 15ML VIAL (A9576) As Ordered ONE; +PROHANCE 279.3MG/ML 5ML VIAL (A9576) As Ordered ONE
--- NOTE | 2019-06-08 13:42 | REPVR ---
EXAM: MR Lumbar Spine Without Contrast. EXAM DATE/TIME: 06/08/2019 11:29 AM CLINICAL HISTORY: 63 years old, male; Patient HX: HX prostate CA, low back pain; Additional info: H/o prostate CA lung CA eval for mets TECHNIQUE: Imaging protocol: Multiplanar magnetic resonance images of the lumbar spine without intravenous contrast. COMPARISON: No relevant prior studies available. FINDINGS: Vertebral body heights are intact. Alignment is maintained. No pars defect is identified. The conus is unremarkable in appearance, with its tip at the L1-2 level. Evaluation for intrathecal mass, including metastasis, is limited without intravenous contrast. There are varying degrees of disc desiccation indicating intervertebral disc degeneration. There are mild degenerative changes at some levels. No suspicious osseous lesion is identified. Bone scan would be more sensitive to osseous metastatic disease. A 12 mm high T2 signal right renal lesion probably represents a cyst. The visualized abdominal structures appear otherwise unremarkable. L1-2: No significant disc displacement. L2-3: Small disc bulge combining with facet arthrosis to lead to mild right and very mild left neural foraminal narrowing without significant spinal stenosis. There is small fluid in the facet joints. L3-4: Diffuse bulge combining with facet arthrosis to lead to mild bilateral neural foraminal narrowing with very mild right and mild left lateral recess narrowing, without significant central canal stenosis. There is small fluid in the right facet joint. L4-5: Disc osteophyte complex with a superimposed component inferiorly directed right paracentral extrusion which extends approximately 5 mm below the level of the disc space. In conjunction with facet arthrosis, there is mild to moderate right and mild left neural foraminal narrowing with moderate right and mild left lateral recess narrowing, without significant central canal stenosis. L5-S1: Disc osteophyte complex combining with facet arthrosis to lead to mild right and mild to moderate left neural foraminal narrowing with a mild right and mild left lateral recess narrowing, without significant central canal stenosis. If surgery is considered, recommend level confirmation. IMPRESSION: 1. Multilevel disc desiccation indicating intervertebral disk degeneration with disc displacements as described. 2. No metastatic disease evident. Intravenous gadolinium would be more sensitive to intrathecal pathology. Electronically signed by: Judson Kemp On 06/08/2019 13:42:33 PM
--- NOTE | 2019-06-08 15:42 | REP ---
Multiparametric prostate MRI without and with IV gadolinium: History: Pelvic pain. History of prostate carcinoma and lung carcinoma. Comparisons: Comparison CT study abdomen and pelvis March 10, 2019. TECHNIQUE: Using a phased array surface coil, small field of view imaging was acquired using T2-weighted scans in the axial, coronal, and sagittal imaging planes. Small field of view diffusion-weighted sequences are acquired. Small field of view axial T1-weighted scans are acquired dynamically before and after the intravenous administration of 19 mL of ProHance. Imaging is reviewed on the [employer] computer aided detection system. Prostate MRI findings: There is some cellular marrow change throughout the pelvis consistent with reactive marrow change. No evidence of skeletal metastatic disease is seen. There are scattered normal-sized pelvic lymph nodes bilaterally which appear unchanged from the March 10, [address] study. Prostate glandular dimensions are 4.7 x 3.4 x 3.2 cm. Calculated volume is 26.1 mL. The patient reports having been treated with prostate seed implants however no prostate seeds are seen either by MRI or CT. There is mild nodular hypertrophy of the central gland. No extra prostatic disease is seen. There is a 8 mm enhancing nodular area of intermediate T2 signal intensity in the right mid transition zone demonstrating a type 3 enhancement curve. Clinically significant prostate cancer is felt to be equivocal. No other focal prostate lesion is appreciated. Impression: No evidence of extra prostatic disease. There are scattered bilateral normal-sized external iliac and inguinal lymph nodes which appear to be stable. There are nodular changes in the central gland as above. I am unable to verify or determine previous prostate cancer treatment regimen. In light of this, the findings within the prostate gland are of uncertain significance. Electronically Signed by Peter Ramsey MD 06/08/2019 04:51 P
--- NOTE | 2019-06-09 11:00 | MEDONCENPD ---
Date/Time of Encounter Date of Encounter: Jun 09, 2019 Time of Encounter: 10:59 Encounter NAME: MEENA KELLY MEDICAL RECORD#: [id number] DATE OF : 1955 AGE: 63 SEX: M REPORT #: [id number] No evidence of extra prostatic disease. There are scattered bilateral normal-sized external iliac and inguinal lymph nodes which appear to be stable. There are nodular changes in the central gland as above. I am unable to verify or determine previous prostate cancer treatment regimen. In light of this, the findings within the prostate gland are of uncertain significance. Email to Bella Bajwa <[email or web address]>; Sandy Jordan <[email or web address]>; Shahida Recinos [email or web address]> Team, Please arrange referral to urology for this patient ( reason - There are nodular changes in the central gland as above. ) . Thx NB AMIE MCPHERSON MD Jun 09, 2019 11:00
== END ==
LOC: M RAD 09:38
PROVIDERS: ATTEND Internal Medicine
DX: Z85.46 Personal history of malignant neoplasm of prostate (principal); M25.78 Osteophyte, vertebrae; M51.26 Other intervertebral disc displacement, lumbar region
CPT/HCPCS: 72148; 72197; A9576

== ENCOUNTER → 2019-06-20 | Outpatient (CLI) | payer OTHER, MEDICARE ==
[~2019-06-20] MED LIST changes: -CIPR0.2S AD; -CLON0.5T2 PO; +CLON0.5T8 PO; -OMEP1CAP73 PO; +OMEP20CA4 PO; -ONDA8TAB10 PO; +ONDA8TAB7 PO; -PROHANCE 279.3MG/ML 15ML VIAL (A9576) As Ordered ONE; -PROHANCE 279.3MG/ML 5ML VIAL (A9576) As Ordered ONE
--- NOTE | 2019-06-21 09:25 | REP ---
PET/CT: HISTORY: Restaging lung cancer, right lower lobe. Mesenteric lymph node recurrence January 04, 2019. On chemotherapy. Comparison PET/CT is reviewed from January 04, 2019. There are prior PET/CTs dating back to May 09, 2015. TECHNIQUE: 49 minutes following the intravenous injection of a 7.70 mCi dose of F-18 FDG, three-dimensional PET scintigraphy is acquired from the skull base to the proximal thighs. Triplanar noncontrast CT scanning is acquired through the same anatomic range for attenuation correction, and image registration with scan parameters optimized to minimize radiation exposure to the patient. PET scintigraphy and CT datasets were fused and displayed on a workstation with multiplanar and projection display capability. PET/CT FINDINGS: Most recent PET/CT study showed a hypermetabolic mesenteric lymph node. This is no longer visible. There is no abnormal hypermetabolic uptake in the abdomen or pelvis today. There is diffusely increased marrow uptake consistent with rebound marrow chemotherapy effect. This marrow uptake is not observed in the mid and lower thoracic spine segments consistent with suppression of marrow postradiation therapy. There is a small quantity of right pleural fluid. This is improved slightly compared to January 04, 2019. There are post operative changes in the right lower lobe as before. A right-sided Abhuee-B-Kdwc catheter is noted. There is no abnormal intrathoracic hypermetabolic uptake. Head and neck soft tissues are unremarkable. IMPRESSION: Rebound marrow uptake post chemotherapy effect. No abnormal hypermetabolic uptake is visible today. The recently observed mesenteric lymph node is no longer apparent. A small amount of right pleural fluid is improved. Electronically Signed by Peter Ramsey MD 06/21/2019 12:11 P
== END ==
LOC: M PLARAD 15:32
PROVIDERS: ATTEND Internal Medicine Medical Oncology
DX: C34.31 Malignant neoplasm of lower lobe, right bronchus or lung (principal)
CPT/HCPCS: 78815; A9552

== ENCOUNTER → 2019-07-04 | Outpatient (CLI) | payer OTHER, MEDICARE ==
[~2019-07-04] MED LIST changes: +CIPR0.2S AD; +CLON0.5T2 PO; -CLON0.5T8 PO; +OMEP1CAP73 PO; -OMEP20CA4 PO; +ONDA8TAB10 PO; -ONDA8TAB7 PO; +PROHANCE 279.3MG/ML 15ML VIAL (A9576) As Ordered ONE; +PROHANCE 279.3MG/ML 5ML VIAL (A9576) As Ordered ONE
--- NOTE | 2019-07-04 15:30 | REPVR ---
EXAM: MR Head Without and With Contrast EXAM DATE/TIME: 07/04/2019 1:04 PM CLINICAL HISTORY: 63 years old, male; Condition or disease; History of cancer (specify primary cancer site): ; Primary cancer: Lung; Patient HX: HX falls, R/O mets; Additional info: Carotid stenosis, small vessel disease TECHNIQUE: Imaging protocol: MR of the head without and with intravenous contrast. Contrast material: PROHANCE; Contrast volume: 19 ml; Contrast route: IV; COMPARISON: MRI-Brain without Contrast 04/21/2019 1:49 PM FINDINGS: Brain: There is no abnormal diffusion weighted signal intensity to suggest an acute ischemic event. There is stable mild atrophy and mild chronic white matter microangiopathic changes. No acute intracranial process is identified. Ventricles: There is compensatory ventricular dilation. Bones/joints: Unremarkable. Soft tissues: Unremarkable. Sinuses: There is extensive mucosal thickening throughout the sinuses with complete opacification of the right frontal and bilateral anterior and posterior ethmoid sinuses. Mastoid air cells: There is fluid signal in the mastoids more extensive on the left without destructive features. Orbits: Unremarkable. Other vasculature: Normal vascular flow voids are present. IMPRESSION: 1. There is extensive mucosal thickening throughout the sinuses with complete opacification of the right frontal and bilateral anterior and posterior ethmoid sinuses. 2. There is fluid signal in the mastoids more extensive on the left without destructive features. 3. No acute intracranial process is identified. Electronically signed by: Dominic Chery On 07/04/2019 15:30:00 PM
== END ==
LOC: M RAD 12:09
PROVIDERS: ATTEND Internal Medicine Medical Oncology
DX: C34.31 Malignant neoplasm of lower lobe, right bronchus or lung (principal)

== ENCOUNTER → 2019-08-25 | Outpatient (CLI) | payer OTHER, MEDICARE ==
[~2019-08-25] MED LIST changes: -CLON0.5T2 PO; +CLON0.5T8 PO; -OMEP1CAP73 PO; +OMEP20CA4 PO; -ONDA8TAB10 PO; +ONDA8TAB7 PO; -PROHANCE 279.3MG/ML 15ML VIAL (A9576) As Ordered ONE; -PROHANCE 279.3MG/ML 5ML VIAL (A9576) As Ordered ONE
== END ==
LOC: M LAB 14:21
PROVIDERS: ATTEND Nurse Practitioner Family
DX: R97.20 Elevated prostate specific antigen [PSA] (principal); Z79.899 Other long term (current) drug therapy

== ENCOUNTER 2019-08-27 05:35 | Emergency (ER) | payer OTHER, MEDICARE ==
[~2019-08-27] VITALS: Ht 190.5 cm; Wt 100.0 kg
[2019-08-27 07:30] VITALS: BP 144/87
== END 2019-08-27 07:30 | disposition home or self-care (01) ==
LOC: M ED 05:35
DX: L60.0 Ingrowing nail (principal); I10 Essential (primary) hypertension; J01.90 Acute sinusitis, unspecified; F43.10 Post-traumatic stress disorder, unspecified; C34.90 Malignant neoplasm of unspecified part of unspecified bronchus or lung; Z92.21 Personal history of antineoplastic chemotherapy; Z92.3 Personal history of irradiation; Z87.891 Personal history of nicotine dependence; Z79.899 Other long term (current) drug therapy; Z88.6 Allergy status to analgesic agent; Z88.2 Allergy status to sulfonamides; Z88.1 Allergy status to other antibiotic agents; Z88.8 Allergy status to other drugs, medicaments and biological substances

== ENCOUNTER → 2019-09-20 | Outpatient (CLI) | payer OTHER ==
[~2019-09-20] MED LIST changes: +CLON0.5T2 PO; -CLON0.5T8 PO; +ISOVUE-370 76% 100ML VIAL (Q9967) As Ordered ONE
--- NOTE | 2019-09-21 08:03 | REP ---
Clinical: Shortness of breath. Technique: Axial contrast enhanced images from the thoracic inlet to the upper abdomen with coronal and sagittal re-formations. Comparison: 03/10/2019 Findings: Postsurgical and presumed post radiation type changes are identified involving the right hemithorax and predominately extending from the right hilum towards the lung base which appear relatively stable. Previously noted small right pleural effusion has resolved. Fibroatelectatic changes extending from the hilum to the base appear relatively similar. While subtle acute atelectasis cannot be excluded, there is no evidence for significant consolidation. The left hemithorax is well-aerated and stable. The tracheobronchial tree is relatively normal / patent. Thoracic aorta, pulmonary vasculature and heart/pericardium appear stable and relatively normal. A very subtle amount of increased right hilar soft tissue which may represent adenopathy causing presumed extrinsic narrowing along the mid to distal posterior aspect of the right main pulmonary artery is somewhat concerning and warrants followup (images [id number]). Musculoskeletal structures demonstrate degenerative changes without obvious focal aggressive abnormality. Healed left rib fractures noted. Limited upper abdomen demonstrates normal bilateral adrenal glands. Impression: 1. Postsurgical and presumed post radiation type changes to the right hemithorax without evidence for acute infiltrate/pneumonia or effusion. 2. Subtle increased soft tissue in the region of the right hilum as detailed above is noted when compared to 03/10/2019. Short-term follow-up is suggested. Electronically Signed by Mirza Sommer MD 09/21/2019 07:55 A
== END ==
LOC: M RAD 16:49
PROVIDERS: ATTEND Internal Medicine Medical Oncology
DX: R06.02 Shortness of breath (principal); Z92.3 Personal history of irradiation
CPT/HCPCS: 71260; Q9967

== ENCOUNTER → 2019-11-23 | Outpatient (CLI) | payer OTHER ==
[~2019-11-23] MED LIST changes: +OMEP1CAP73 PO; -OMEP20CA4 PO; +ONDA8TAB10 PO; -ONDA8TAB7 PO
--- NOTE | 2019-11-23 19:24 | REP ---
CT of the chest with IV contrast for small cell carcinoma. Followup: Comparisons are 09/20/2019 and 03/10/2019. The patient reportedly has a left lower lobectomy. There is right paramediastinal scarring likely post radiation. There are no lung masses or nodules. There are no infiltrates or pleural effusions. There is mild pleural thickening posteriorly in the right hemithorax, likely postradiation. There is soft tissue fullness in the base of the right hilus and subcarinal mediastinum. This has improved from 09/20 2019, however, there is still attenuation of the proximal bronchi in this area but no total occlusion. There is no other mediastinal adenopathy. There is no left hilar adenopathy. There is no axillary adenopathy. Thoracic aorta is unremarkable. Cardiac size is normal. There is a small pericardial effusion at the cardiac base measuring 12 mm in depth, not significantly changed. There is a persisting small pleural effusion medially in the right base, unchanged from 09/20/2019, decreased from 03/10/2019. Upper abdomen: The visualized upper abdominal contents are unremarkable. There is no adrenal mass. Impression: Post radiation to age is in the right paramediastinal area. Persisting soft tissue fullness at the base of the right hilus extending into the subcarinal mediastinum, decreased from the prior study but still resulting in attenuation of the proximal bronchi. There is no bronchial occlusion. There are no lung masses or nodules. No infiltrates. Persisting small pleural effusion medially in the right base. Electronically Signed by Dwayne Watt MD 11/23/2019 07:16 P
== END ==
LOC: M RAD 13:06
PROVIDERS: ATTEND Internal Medicine Medical Oncology
DX: C34.31 Malignant neoplasm of lower lobe, right bronchus or lung (principal)
CPT/HCPCS: 71260; Q9967

== ENCOUNTER 2020-01-20 05:21 | Inpatient (IN) | payer OTHER ==
[~2020-01-20] VITALS: Ht 190.5 cm; Wt 103.4 kg
[~2020-01-20 05:21] MED LIST changes: -AK-T0.3S; +AK-T0.3S OU; -AZEL0.1S; -ISOVUE-370 76% 100ML VIAL (Q9967) As Ordered ONE; +[UNRECOGNIZED DRUG - CODE] IV; -[UNRECOGNIZED DRUG - CODE] IV
[2020-01-20] MEDS ORDERED: HYDR12CA PO (05:39)
[2020-01-20] MEDS ORDERED: SILD100T PO (05:39)
[2020-01-20] MEDS ORDERED: CLON0.5T2 PO (05:39)
[2020-01-20] MEDS ORDERED: ASPI-226 PO (05:39)
[2020-01-20] MEDS ORDERED: ACETAMINOPHEN TAB 650MG DOSE (2X325MG) PO ONE (06:45)
[2020-01-20 06:54] LABS: ALT/SGPT 46 U/L (12-78); BASO % 0.4 % (0.0-1.0); BILIRUBIN,DIRECT 0.2 MG/DL (0.0-0.2); BILIRUBIN,TOTAL 0.3 MG/DL (0.2-1.0); BLOOD UREA NITROGEN 21 MG/DL (7-18); CALCIUM LEVEL 8.8 MG/DL (8.8-10.2); CARBON DIOXIDE LEVEL 25 MEQ/L (21-32); CHLORIDE LEVEL 108 MEQ/L (98-107); CK-MB VALUE MASS 7.3 NG/ML (<3.6); CPK CREATINE PHOSPHOKINASE 217 U/L (39-308); CREATININE FOR GFR 1.41 MG/DL (0.70-1.30); EOS # 0.6 10^3/uL (0.0-0.5); EOS % 6.6 % (0.0-3.0); GLOMERULAR FILTRATION RATE > 60.0 (>49); GLUCOSE, FASTING 89 MG/DL (70-100); HEMATOCRIT 35.8 % (42.0-52.0); LYMPH # 0.5 10^3/uL (1.5-5.0); MB/CK RELATIVE INDEX 3.36 (< OR =4); MEAN CORPUSCULAR HEMOGLOBIN 31.7 pg (27.0-33.0); MEAN CORPUSCULAR HGB CONC 33.5 g/dl (32.0-36.5); MEAN CORPUSCULAR VOLUME 94.7 fl (80.0-96.0); MONO # 0.5 10^3/uL (0.0-0.8); MONO % 6.3 % (0.0-5.0); NEUTROPHILS # 6.9 10^3/uL (1.5-8.5); NEUTROPHILS % 80.3 % (36.0-66.0); NT-PRO BNP 247 PG/ML (<125); PLATELET COUNT, AUTOMATED 249 10^3/uL (150-450); POTASSIUM SERUM 3.8 MEQ/L (3.5-5.1); RED BLOOD COUNT 3.78 10^6/uL (4.30-6.10); SODIUM LEVEL 139 MEQ/L (136-145); TOTAL PROTEIN 6.4 GM/DL (6.4-8.2); TROPONIN I < 0.02 NG/ML (< 0.10); WHITE BLOOD COUNT 8.5 10^3/uL (4.0-10.0)
[2020-01-20 06:58] LABS: FREE T4 0.92 NG/DL (0.76-1.46); THYROID STIMULATING HORMONE 2.7 uIU/ML (0.358-3.740)
--- NOTE | 2020-01-20 07:43 | REPVR ---
PROCEDURE INFORMATION: Exam: US Duplex Lower Extremity Veins Exam date and time: 01/20/2020 7:37 AM Age: 64 years old Clinical indication: Pain; Leg, lower; Bilateral; Additional info: Le edema, h/o CA, L popliteal fossa ttp TECHNIQUE: Imaging protocol: Real-time duplex ultrasound of the Lower Extremities with 2-D andre scale, color Doppler flow and spectral waveform analysis with image documentation. Complete exam focused on the bilateral lower extremity veins. COMPARISON: No relevant prior studies available. FINDINGS: Right deep veins: Unremarkable. The common femoral, femoral, proximal profunda femoral and popliteal veins are patent without thrombus. Normal Doppler waveforms. Normal compressibility and/or augmentation response. Right superficial veins: Saphenofemoral junction is patent without thrombus. Left deep veins: Unremarkable. The common femoral, femoral, proximal profunda femoral and popliteal veins are patent without thrombus. Normal Doppler waveforms. Normal compressibility and/or augmentation response. Left superficial veins: Saphenofemoral junction is patent without thrombus. Soft tissues: Probable bilateral Valle's cysts, measuring up to 3.3 x 1.6 x 0.9 cm on the left and 4.3 x 1.2 x 0.7 cm on the right. IMPRESSION: No evidence of deep vein thrombosis in the thighs bilaterally. Probable bilateral Valle's cysts as described above. Electronically signed by: Neil Centeno On 01/20/2020 07:42:30 AM
[2020-01-20] MEDS ORDERED: FUROSEMIDE 20 MG/2 ML VIAL (J1940) IV ONE (08:15)
--- NOTE | 2020-01-20 08:37 | ECGEPIP ---
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
[2020-01-20] MEDS ORDERED: ASPIRIN 81 MG ENTERIC TAB PO SCH ×2 (09:00→12:54)
--- NOTE | 2020-01-20 09:54 | REP ---
CT CHEST WITHOUT IV CONTRAST: CT chest performed without IV contrast and compared to prior study of 11/23/2019. Sagittal and coronal reconstruction images are performed. Multiple surgical sutures and clips are seen in the right hilum and infrahilar region. There is a small right pleural effusion which has mildly increased since the prior exam. There are a few tiny foci of pleural air seen inferomedially. There appears to be a tiny focus of pleural air superiorly and anteriorly. There is a small adjacent focus of superior mediastinal air. The findings are a suspicious for a bronchopleural fistula. There is mild new right base atelectasis/infiltrate. Right paramediastinal scarring is again seen as on prior study. Left lung is clear. No axillary adenopathy is seen. There are a few subcentimeter mediastinal lymph nodes present. Heart is not enlarged. Thoracic aorta is normal in caliber. There are degenerative changes of the spine. Visualized upper abdominal structures are essentially unremarkable. IMPRESSION: Increase in small right pleural effusion. There are also a few tiny foci of pleural air. This raises suspicion for a bronchopleural fistula. There is mild new right base atelectasis/infiltrate. Paramediastinal scarring is again noted. Electronically Signed by Dwayne White MD 01/20/2020 12:35 P
--- NOTE | 2020-01-20 10:44 | REP ---
CHEST, TWO VIEWS: Two views of the chest are performed and compared to prior study 01/12/2019. There is mild shift of heart and mediastinal structures to the right with chronic perihilar changes. However, there does appear to be new atelectasis/infiltrate in the right lung base. There is small right pleural effusion. Left lung is clear. Heart is not enlarged. There is mild calcification of the thoracic aorta. There is a right central venous catheter with the tip in the superior vena cava. There are mild degenerative changes of the spine. IMPRESSION: Right base atelectasis/infiltrate. Small right effusion. Postsurgical volume loss right hemithorax. Electronically Signed by Dwayne White MD 01/20/2020 12:36 P
[2020-01-20] MEDS ORDERED: VITAD1000T PO (10:48)
[2020-01-20] MEDS ORDERED: FLUT1BLS2 INH (10:48)
[2020-01-20 11:18] LABS: APPEARANCE, URINE CLEAR (CLEAR); BACTERIA, URINE AUTO NEGATIVE (NEGATIVE); BILIRUBIN, URINE AUTO NEGATIVE (NEGATIVE); BLOOD, URINE BLOOD NEGATIVE (NEGATIVE); COLOR, URINE YELLOW (YELLOW); GLUCOSE, URINE (UA) AUTO NEGATIVE (NEGATIVE); KETONE, URINE AUTO NEGATIVE (NEGATIVE); LEUKOCYTE ESTERASE, URINE AUTO NEGATIVE (NEGATIVE); NITRITE, URINE AUTO NEGATIVE (NEGATIVE); PROTEIN, URINE AUTO NEGATIVE (NEGATIVE); RBC, URINE AUTO 0 /HPF (0-3); SQUAMOUS EPITHELIAL CELL UR AU 0 /HPF (0-6); UROBILINOGEN, URINE AUTO 0.2 mg/dL (0.0-2.0); WBC, URINE AUTO 0 /HPF (0-3)
[2020-01-20] MEDS ORDERED: MAALOX 30 ML SUSP *UDC PO PRN (12:00)
[2020-01-20] MEDS ORDERED: MIRALAX *UNIT DOSE* 17GM PACKET PO PRN (12:00)
[2020-01-20] MEDS ORDERED: MOM 30ML SUSPENSION UDC PO PRN (12:00)
[2020-01-20] MEDS ORDERED: ACETAMINOPHEN TAB 650MG DOSE (2X325MG) PO PRN (12:00)
[2020-01-20] MEDS ORDERED: ONDANSETRON 4 MG TAB (S0181) PO PRN (12:00)
[2020-01-20] MEDS ORDERED: ALBUTEROL 90 MCG/ACT 8GM HFA INHALER INH PRN (12:00)
--- NOTE | 2020-01-20 12:28 | HPEPDOC ---
General Date of Admission Date of Service: Jan 20, 2020 Chief Complaint The patient is a 64-year-old male admitted with a reason for visit of Swelling Of Feet. 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 Caceres last time he is seen her in November of this year. Patient this time but complains of increasing swelling of his bilateral legs and now he has difficulty ambulation, as per patient's swelling is started 3 months ago. He had mentioned it to Dr. Caceres and she recommended observation any a poor yield PCP who started hydrochlorothiazide without any significant relief with the symptoms. Now he has difficulty ambulation and decided come to ER. Patient denies any chest pain, shortness of breath, nausea, vomiting, abdominal pain, fever, etc. Home Medications Scheduled Allopurinol (Allopurinol) 100 Mg Tab, 100 MG PO DAILY, (Reported) Aspirin (Aspirin EC) 81 Mg Tablet.dr, 81 MG PO DAILY, (Reported) Azelastine HCl (Azelastine HCl) 0.1 % Spr, 2 SPRAYS NARES BID, (Reported) Cetirizine HCl (Cetirizine HCl) 10 Mg Tab, 10 MG PO DAILY, (Reported) Cholecalciferol (Vitamin D3) (Vitamin D3) 1,000 Unit Tablet, 2,000 UNITS PO DAILY, (Reported) Clonazepam (Clonazepam) 0.5 Mg Tablet, 0.5 MG PO BID, (Reported) Clonidine HCl (Clonidine HCl) 0.1 Mg Tab, 0.1 MG PO DAILY, (Reported) Clonidine HCl (Clonidine HCl) 0.1 Mg Tab, 0.2 MG PO QHS, (Reported) Diphenhydramine HCl (Diphenhydramine HCl) 50 Mg Cap, 100 MG PO QHS, (Reported) Dorzolamide HCl/Timolol Maleat (Dorzolamide-Timolol Eye Drops) 1 Layne [place]ne, 1 DROP OP BID, (Reported) Doxepin HCl (Doxepin HCl) 25 Mg Cap, 75 MG PO QAM, (Reported) Doxepin HCl (Doxepin HCl) 25 Mg Cap, 50 MG PO QHS, (Reported) Fluoride (Sodium) (Prevident 5000 Plus) 1.1 % Cre, 1 DOSE MT BID, (Reported) Fluticasone Propion/Salmeterol (Wixela 250-50 Inhub) 1 Each Blst.w.dev, 1 EACH INH BID, (Reported) Folic Acid (Folic Acid) 1 Mg Tablet, 1 MG PO DAILY, (Reported) Hydrochlorothiazide (Hydrochlorothiazide) 12.5 Mg Capsule, 12.5 MG PO DAILY, (Reported) Latanoprost (Xalatan) 0.005 % Layne, 1 DROP OU QHS, (Reported) Metoprolol Tartrate (Metoprolol Tartrate) 100 Mg Tab, 100 MG PO BID, (Reported) Omeprazole (Omeprazole) 20 Mg Cap, 20 MG PO BID, (Reported) Polyethylene Glycol 3350 (Polyethylene Glycol 3350) 510 Gm Powder, 510 GM PO BIDP, (Reported) Sildenafil Citrate (Sildenafil Citrate) 100 Mg Tablet, 100 MG PO ASDIRECTED, (Reported) Tobramycin (Tobramycin) 0.3% 5ML Drops, 1 DROP OU BID, (Reported) Scheduled PRN Albuterol Sulfate (Ventolin Hfa) 108 Mcg/Act Aer, 2 PUFFS INH Q4H PRN for SHORTNESS OF BREATH, (Reported) Ondansetron HCl (Ondansetron HCl) 8 Mg Tab, 8 MG PO Q6H PRN for NAUSEA, (Reported) Allergies Coded Allergies: ibuprofen (Verified Allergy, Intermediate, rash, itching, 08/27/19) NSAIDS (Non-Steroidal Anti-Inflamma (Verified Allergy, Unknown, 08/27/19) Sulfa (Sulfonamide Antibiotics) (Verified Allergy, Unknown, 08/27/19) amitriptyline (Verified Allergy, Unknown, 08/27/19) cefuroxime (Verified Allergy, Unknown, 08/27/19) diltiazem (Verified Allergy, Unknown, 08/27/19) fosinopril (Verified Allergy, Unknown, 08/27/19) gabapentin (Verified Allergy, Unknown, 08/27/19) losartan (Verified Allergy, Unknown, 08/27/19) Past Medical History Medical History Stage III right lower lobe squamous cell carcinoma, status post chemoradiation therapy, hypertension, gout, COPD, PTSD, seasonal allergies, GERD, asthma, SIADH Surgical History As above Family History No history of cancer or diabetes in the family Social History * Smoker: former Smoker Alcohol: Denies Drugs: denies A-FIB/CHADSVASC A-FIB History Current/History of A-Fib/PAF?: No Review of Systems Constitutional: Denies: Chills, Fever, Malaise, Night Sweats, Weakness, Fatigue, Weight Loss, Lethargy, Other Eyes: Denies: Pain, Vision change, Conjunctivae inflammation, Eyelid inflammation, Redness, Other ENT: Denies: Head Aches, Ear Pain, Dysphagia Skin: Denies: Rash, Lesions, Jaundice, Bruising, Itching, Dry, Breakdown, Nail Changes, Other Pulmonary: Denies: Dyspnea, Cough, Pleuritic Chest Pain, Other Symptoms Cardiovascular: Reports: Edema; Denies: Chest Pain, Palpitations, Orthopnea, Paroxysmal Noc. Dyspnea, Lt Headedness, Other Symptoms Gastrointestinal: Denies: Nausea, Vomiting, Abdominal Pain, Diarrhea, Constipation, Melena, Hematochezia, Other Symptoms Genitourinary: Denies: Dysuria, Frequency, Incontinence, Hematuria, Retention, Other Symptoms Hematologic: Denies: Bruising, Bleeding Excessively, Petecchia, Purpura, Enlarged Lymph Nodes, Other Hematologic Endocrine: Denies: Polydipsia, Polyphagia, Polyuria, Heat Intolerance, Cold Intolerance, Other Endocrine Sx Musculoskeletal: Reports: Other Symptoms (difficulty ambulation) Neurological: Denies: Weakness, Numbness, Incoordination, Change in speech, Confusion, Seizures, Other Symptoms Psych: Denies: Mood Normal, Anxiety, Depression, Memory Issues, Thoughts of Self Harm, Anger, Thoughts of Harming Other, Other Psych Physical Examination General Exam: Positive: Alert, Cooperative Eye Exam: Positive: PERRLA, Conjunctiva & lids normal ENT Exam: Positive: Atraumatic, Mucous membr. moist/pink Neck Exam: Positive: Supple Chest Exam: Positive: Clear to auscultation, Normal air movement Heart Exam: Positive: Rate Normal, Other (, 2+ bipedal edema) Abdomen Exam: Positive: Normal bowel sounds, Soft Extremity Exam: Positive: Normal pulses Skin Exam: Positive: Nl turgor and temperature Neuro Exam: Positive: Strength at 5/5 X4 ext, Sensation Intact, Cranial Nerves 3-12 NL Psych Exam: Positive: Mental status NL, Oriented x 3 Vital Signs Vital Signs Date Time Temp Pulse Resp B/P (MAP) Pulse Ox O2 Delivery O2 Flow Rate FiO2 01/20/20 11:21 73 20 97 Room Air 01/20/20 10:23 140/85 (103) 01/20/20 05:21 96.1 Laboratory Data Labs 24H Laboratory Tests 2 01/20/20 06:25: Immature Granulocyte % (Auto) 0.4, Neutrophils (%) (Auto) 80.3H, Lymphocytes (%) (Auto) 6.0L, Monocytes (%) (Auto) 6.3H, Eosinophils (%) (Auto) 6.6H, Basophils (%) (Auto) 0.4, Neutrophils # (Auto) 6.9, Lymphocytes # (Auto) 0.5L, Monocytes # (Auto) 0.5, Eosinophils # (Auto) 0.6H, Basophils # (Auto) 0.0, Nucleated Red Blood Cells % (auto) 0.0, Anion Gap 6L, Glomerular Filtration Rate > 60.0, Calcium Level 8.8, Total Bilirubin 0.3, Direct Bilirubin 0.2, Aspartate Amino Transf (AST/SGOT) 44H, Alanine Aminotransferase (ALT/SGPT) 46, Alkaline Phosphatase 88, Total Creatine Kinase 217, Creatine Kinase MB 7.3H, Creatine Kinase MB Relative Index 3.36, Troponin I < 0.02, HK-Giv-X-Type Natriuretic Peptide 247H, Total Protein 6.4, Albumin 3.0L, Albumin/Globulin Ratio 0.88L 01/20/20 06:35: Thyroid Stimulating Hormone (TSH) 2.700, Free Thyroxine 0.92 01/20/20 10:22: Urine Color YELLOW, Urine Appearance CLEAR, Urine pH 5.0, Urine Specific [place] 1.010, Urine Protein NEGATIVE, Urine Glucose (Auto)(UA) NEGATIVE, Urine Ketones (Auto) NEGATIVE, Urine Blood NEGATIVE, Urine Nitrite NEGATIVE, Urine Bilirubin NEGATIVE, Urine Urobilinogen 0.2, Urine Leukocyte Esterase (Auto) NEGATIVE, Urine WBC (Auto) 0, Urine RBC (Auto) 0, Urine Hyaline Casts (Auto) 0, Urine Bacteria (Auto) NEGATIVE, Urine Squamous Epithelial Cells 0, Urine Sperm (Auto) CBC/BMP Laboratory Tests 01/20/20 06:25 Problems (1) Bilateral lower extremity edema Status: Acute Problem Text: 64-year-old -[place] male with history of lung cancer status post chemoradiation therapy, hypertension, gout, COPD, PTSD, asthma and SIADH develop increased swelling of his bilateral lower extremities in last 3 months, now patient is unable to ambulate secondary to pain and swelling of his bilateral lower extremities. Etiology is uncertain but could be secondary to peripheral vascular disease versus congestive heart failure or right-sided heart failure versus paraneoplastic syndrome Patient had a venous Doppler done in ED which was negative for DVT CT chest showed increased right pleural effusion and possible new right base atelectasis/infiltrate, doubt pneumonia as patient is a asymptomatic and afebrile at the present time. Patient does have a paramediastinal scarring CBC, CMP, urine are essentially negative and patient's ABG is in acceptable range. Does not require any oxygen supplementation Admit to [facility] floor with telemetry Patient received 1 dose of Lasix in ED, I will continue Lasix 40 mg by mouth twice a day THE echocardiogram to assess cardiac function Physical therapy evaluation in a.m. I&O's Continue all home meds except hydrochlorothiazide 2 g sodium diet Activity as tolerated DVT prophylaxis with heparin (2) Lung cancer Status: Chronic Problem Text: Status post radiation and chemotherapy Continue home meds (3) GERD (gastroesophageal reflux disease) Status: Chronic Problem Text: Continue home meds (4) SIADH (syndrome of inappropriate ADH production) Onset Date: ~ 05/2018 Status: Chronic Problem Text: History of SIADH, bilateral eyes within normal range Plan / VTE VTE Prophylaxis Ordered?: Yes OWEN RIOS MD Jan 20, 2020 12:28
[2020-01-20 14:39] VITALS: BP 131/89
[2020-01-20 14:46] VITALS: BP 131/89
[2020-01-20] MEDS: HEPARIN SOD (PORCINE) 5000 UNITS/ML VIAL (J1644 PER 1000UNITS) SQ SCH ×2 (14:49→20:29)
[2020-01-20] MEDS: FOLIC ACID 1 MG TAB PO SCH (14:58)
[2020-01-20] MEDS: cloNIDine 0.1 MG TAB PO SCH (14:58)
[2020-01-20] MEDS: ASPIRIN 81 MG ENTERIC TAB PO SCH (14:58)
[2020-01-20] MEDS: allopurinoL 100 MG TAB PO SCH (14:58)
[2020-01-20] MEDS: CETIRIZINE (ZyrTEC) 10 MG TAB PO SCH (14:59)
[2020-01-20] MEDS: FUROSEMIDE 40 MG TAB PO SCH (17:24)
[2020-01-20] MEDS: AZELASTINE 137MCG NASAL SPY 30 ML (ASTELIN) SCH (20:28)
[2020-01-20] MEDS: LATANOPROST 0.005% OPHTH SOLN 2.5 ML OU SCH (20:28)
[2020-01-20] MEDS: TOBRAMYCIN 0.3% OPHTH SOLN 5 ML OU SCH (20:28)
[2020-01-20] MEDS: COSOPT OCUMETER PLUS 10ML (DORZOLAMIDE/TIMOLOL) OU SCH (20:29)
[2020-01-20] MEDS: clonazePAM 0.5 MG TAB PO SCH (20:30)
[2020-01-20] MEDS: DOCUSATE SODIUM 100 MG CAP PO SCH (20:30)
[2020-01-20] MEDS: DOXEPIN 25 MG CAP PO SCH (20:30)
[2020-01-20] MEDS: OMEPRAZOLE 20 MG CAP PO SCH (20:30)
[2020-01-20] MEDS: METOPROLOL TARTRATE 100 MG TAB PO SCH (20:31)
[2020-01-20] MEDS: cloNIDine 0.2 MG TAB PO SCH (20:32)
[2020-01-20] MEDS: diphenhydrAMINE 50MG CAP PO SCH (20:33)
[2020-01-20] MEDS ORDERED: LOSARTAN 50 MG TAB PO SCH (21:00)
[2020-01-20 22:00] VITALS: BP 117/73
[2020-01-21 06:00] VITALS: BP 106/65
[2020-01-21 06:55] LABS: HEMATOCRIT 33.6 % (42.0-52.0); HEMOGLOBIN 11.7 g/dl (13.5-17.5); MEAN CORPUSCULAR HEMOGLOBIN 32.6 pg (27.0-33.0); MEAN CORPUSCULAR HGB CONC 34.8 g/dl (32.0-36.5); MEAN CORPUSCULAR VOLUME 93.6 fl (80.0-96.0); PLATELET COUNT, AUTOMATED 225 10^3/uL (150-450); RED BLOOD COUNT 3.59 10^6/uL (4.30-6.10); WHITE BLOOD COUNT 9.1 10^3/uL (4.0-10.0)
[2020-01-21 07:22] LABS: ALBUMIN 2.7 GM/DL (3.2-5.2); ALT/SGPT 37 U/L (12-78); BILIRUBIN,TOTAL 0.7 MG/DL (0.2-1.0); BLOOD UREA NITROGEN 19 MG/DL (7-18); CALCIUM LEVEL 8.7 MG/DL (8.8-10.2); CARBON DIOXIDE LEVEL 28 MEQ/L (21-32); CHLORIDE LEVEL 102 MEQ/L (98-107); CREATININE FOR GFR 1.32 MG/DL (0.70-1.30); GLOMERULAR FILTRATION RATE > 60.0 (>49); GLUCOSE, FASTING 88 MG/DL (70-100); MAGNESIUM LEVEL 1.3 MG/DL (1.8-2.4); POTASSIUM SERUM 3.7 MEQ/L (3.5-5.1); SODIUM LEVEL 135 MEQ/L (136-145); TOTAL PROTEIN 5.6 GM/DL (6.4-8.2)
[2020-01-21] MEDS: COSOPT OCUMETER PLUS 10ML (DORZOLAMIDE/TIMOLOL) OU SCH ×2 (08:19→21:00)
[2020-01-21] MEDS: TOBRAMYCIN 0.3% OPHTH SOLN 5 ML OU SCH ×2 (08:19→20:57)
[2020-01-21] MEDS: AZELASTINE 137MCG NASAL SPY 30 ML (ASTELIN) SCH ×2 (08:19→20:56)
[2020-01-21] MEDS: DOXEPIN 25 MG CAP PO SCH ×2 (08:20→20:58)
[2020-01-21] MEDS: HEPARIN SOD (PORCINE) 5000 UNITS/ML VIAL (J1644 PER 1000UNITS) SQ SCH ×2 (08:20→20:57)
[2020-01-21] MEDS: CETIRIZINE (ZyrTEC) 10 MG TAB PO SCH (08:20)
[2020-01-21] MEDS: OMEPRAZOLE 20 MG CAP PO SCH ×2 (08:20→20:58)
[2020-01-21] MEDS: ASPIRIN 81 MG ENTERIC TAB PO SCH (08:20)
[2020-01-21] MEDS: VITAMIN D 1,000 INTERNATIONAL UNITS TABLET PO SCH (08:20)
[2020-01-21] MEDS: FUROSEMIDE 40 MG TAB PO SCH ×2 (08:21→17:34)
[2020-01-21] MEDS: clonazePAM 0.5 MG TAB PO SCH ×2 (08:21→21:01)
[2020-01-21] MEDS: allopurinoL 100 MG TAB PO SCH (08:21)
[2020-01-21] MEDS: DOCUSATE SODIUM 100 MG CAP PO SCH ×2 (08:21→20:58)
[2020-01-21] MEDS: FOLIC ACID 1 MG TAB PO SCH (08:21)
[2020-01-21] MEDS: cloNIDine 0.1 MG TAB PO SCH (08:23)
[2020-01-21] MEDS: METOPROLOL TARTRATE 100 MG TAB PO SCH ×2 (08:24→21:00)
--- NOTE | 2020-01-21 10:12 | IPNPDOC ---
Subjective Date Seen The patient was seen on 01/21/20. Subjective Chief Complaint/HPI Patient offers no new complaints , still has difficulty ambulating General: Denies: ROS Unobtainable, Chills, Night Sweats, Fatigue, Malaise, Normal Appetite, Other Symptoms Constitutional: Denies: Chills, Fever, Malaise, Night Sweats, Weakness, Fatigue, Weight Loss, Lethargy, Other Pulmonary: Denies: Dyspnea, Cough, Pleuritic Chest Pain, Other Symptoms Cardiovascular: Denies: Chest Pain, Palpitations, Orthopnea, Paroxysmal Noc. Dyspnea, Edema, Lt Headedness, Other Symptoms Gastrointestinal: Denies: Nausea, Vomiting, Abdominal Pain, Diarrhea, Constipation, Melena, Hematochezia, Other Symptoms Musculoskeletal: Denies: Neck Pain, Back Pain, Shoulder Pain, Arm Pain, Hand Pain, Leg Pain, Foot Pain, Joint Pain, Muscle Pain, Spasms, Other Symptoms Neurological: Denies: Weakness, Numbness, Incoordination, Change in speech, Confusion, Seizures, Other Symptoms Objective Physical Examination Chest Exam: Positive: Clear to auscultation, Normal air movement Heart Exam: Positive: Rate Normal, Other (, 2+ bipedal edema) Abdomen Exam: Positive: Normal bowel sounds, Soft Extremity Exam: Positive: Normal pulses Skin Exam: Positive: Nl turgor and temperature Neuro Exam: Positive: Strength at 5/5 X4 ext, Sensation Intact, Cranial Nerves 3-12 NL Psych Exam: Positive: Mental status NL, Oriented x 3 Assessment /Plan Problems (1) Bilateral lower extremity edema Status: Acute Problem Text: 64-year-old -[place] male with history of lung cancer status post chemoradiation therapy, hypertension, gout, COPD, PTSD, asthma and SIADH develop increased swelling of his bilateral lower extremities in last 3 months, now patient is unable to ambulate secondary to pain and swelling of his bilateral lower extremities. Etiology is uncertain but could be secondary to peripheral vascular disease versus congestive heart failure or right-sided heart failure versus paraneoplastic syndrome Patient had a venous Doppler done in ED which was negative for DVT CT chest showed increased right pleural effusion and possible new right base atelectasis/infiltrate, doubt pneumonia as patient is a asymptomatic and afebrile at the present time. Patient does have a paramediastinal scarring CBC, CMP, urine are essentially negative and patient's ABG is in acceptable range. Does not require any oxygen supplementation Patient was admitted to [facility] floor with telemetry Continue Lasix 40 mg by mouth twice a day Patient output was -1295. Since last 24 hours Echocardiogram is pending to assess further cardiac function Physical therapy evaluation is pending for tomorrow Continue monitoring intake and output Patient will probably require social work consult for safe discharge home or rehabilitation facility (2) Pleural effusion Status: Acute Problem Text: Small pleural effusion was noted that patient has no symptoms of shortness of breath . We'll continue monitoring clinically (3) Lung cancer Status: Chronic Problem Text: Status post radiation and chemotherapy Continue home meds (4) GERD (gastroesophageal reflux disease) Status: Chronic Problem Text: Continue home meds Plan/VTE VTE Prophylaxis Ordered?: Yes VS, I&O, 24H, Fishbone Vital Signs/I&O Vital Signs Date Time Temp Pulse Resp B/P (MAP) Pulse Ox O2 Delivery O2 Flow Rate FiO2 01/21/20 08:24 90 120/81 01/21/20 06:00 97.9 16 97 Room Air I&O- Last 24 Hours up to 6 AM 01/21/20 06:00 Intake Total 900 ml Output Total 2795 ml Balance -1895 ml Laboratory Data 24H LABS Laboratory Tests 2 01/20/20 10:22: Urine Color YELLOW, Urine Appearance CLEAR, Urine pH 5.0, Urine Specific [place] 1.010, Urine Protein NEGATIVE, Urine Glucose (Auto)(UA) NEGATIVE, Urine Ketones (Auto) NEGATIVE, Urine Blood NEGATIVE, Urine Nitrite NEGATIVE, Urine Bilirubin NEGATIVE, Urine Urobilinogen 0.2, Urine Leukocyte Esterase (Auto) NEGATIVE, Urine WBC (Auto) 0, Urine RBC (Auto) 0, Urine Hyaline Casts (Auto) 0, Urine Bacteria (Auto) NEGATIVE, Urine Squamous Epithelial Cells 0, Urine Sperm (Auto) 01/21/20 06:09: Nucleated Red Blood Cells % (auto) 0.0, Anion Gap 5L, Glomerular Filtration Rate > 60.0, Calcium Level 8.7L, Magnesium Level 1.3L, Total Bilirubin 0.7#, Aspartate Amino Transf (AST/SGOT) 39H, Alanine Aminotransferase (ALT/SGPT) 37, Alkaline Phosphatase 86, Total Protein 5.6L, Albumin 2.7L, Albumin/Globulin Ratio 0.93L CBC/BMP Laboratory Tests 01/21/20 06:09 OWEN RIOS MD Jan 21, 2020 10:12
[2020-01-21 14:00] VITALS: BP 113/79
[2020-01-21] MEDS: MAG SULF 1GM/100ML (MAG RUN) 1 GM in IV 1 EA IV SCH ×2 (17:34→17:35)
[2020-01-21] MEDS: diphenhydrAMINE 50MG CAP PO SCH (20:58)
[2020-01-21] MEDS: cloNIDine 0.2 MG TAB PO SCH (20:59)
[2020-01-21] MEDS: LATANOPROST 0.005% OPHTH SOLN 2.5 ML OU SCH (21:00)
[2020-01-21 22:00] VITALS: BP 112/78
[2020-01-22 06:00] VITALS: BP 110/69
[2020-01-22 06:12] LABS: BASO % 0.3 % (0.0-1.0); EOS # 0.5 10^3/uL (0.0-0.5); EOS % 6.2 % (0.0-3.0); HEMOGLOBIN 11.3 g/dl (13.5-17.5); LYMPH # 0.7 10^3/uL (1.5-5.0); LYMPH % 8.7 % (24.0-44.0); MEAN CORPUSCULAR HEMOGLOBIN 32.1 pg (27.0-33.0); MEAN CORPUSCULAR HGB CONC 34.2 g/dl (32.0-36.5); MEAN CORPUSCULAR VOLUME 93.8 fl (80.0-96.0); MONO # 0.6 10^3/uL (0.0-0.8); MONO % 7.7 % (0.0-5.0); NEUTROPHILS # 6.1 10^3/uL (1.5-8.5); NEUTROPHILS % 76.7 % (36.0-66.0); PLATELET COUNT, AUTOMATED 228 10^3/uL (150-450); RED BLOOD COUNT 3.52 10^6/uL (4.30-6.10)
[2020-01-22 06:33] LABS: ALBUMIN 2.6 GM/DL (3.2-5.2); ALT/SGPT 36 U/L (12-78); BILIRUBIN,TOTAL 0.6 MG/DL (0.2-1.0); BLOOD UREA NITROGEN 23 MG/DL (7-18); CALCIUM LEVEL 8.5 MG/DL (8.8-10.2); CARBON DIOXIDE LEVEL 29 MEQ/L (21-32); CHLORIDE LEVEL 101 MEQ/L (98-107); CREATININE FOR GFR 1.48 MG/DL (0.70-1.30); GLOMERULAR FILTRATION RATE > 60.0 (>49); GLUCOSE, FASTING 92 MG/DL (70-100); POTASSIUM SERUM 3.6 MEQ/L (3.5-5.1); SODIUM LEVEL 138 MEQ/L (136-145); TOTAL PROTEIN 5.5 GM/DL (6.4-8.2)
[2020-01-22] MEDS: cloNIDine 0.1 MG TAB PO SCH (09:00)
[2020-01-22] MEDS: ASPIRIN 81 MG ENTERIC TAB PO SCH (10:08)
[2020-01-22] MEDS: HEPARIN SOD (PORCINE) 5000 UNITS/ML VIAL (J1644 PER 1000UNITS) SQ SCH ×2 (10:08→20:40)
[2020-01-22] MEDS: clonazePAM 0.5 MG TAB PO SCH ×2 (10:08→20:38)
[2020-01-22] MEDS: CETIRIZINE (ZyrTEC) 10 MG TAB PO SCH (10:09)
[2020-01-22] MEDS: FOLIC ACID 1 MG TAB PO SCH (10:09)
[2020-01-22] MEDS: OMEPRAZOLE 20 MG CAP PO SCH ×2 (10:09→20:39)
[2020-01-22] MEDS: FUROSEMIDE 40 MG TAB PO SCH ×2 (10:09→17:15)
[2020-01-22] MEDS: DOXEPIN 25 MG CAP PO SCH ×2 (10:09→20:38)
[2020-01-22] MEDS: VITAMIN D 1,000 INTERNATIONAL UNITS TABLET PO SCH (10:09)
[2020-01-22] MEDS: DOCUSATE SODIUM 100 MG CAP PO SCH ×2 (10:10→20:39)
[2020-01-22] MEDS: allopurinoL 100 MG TAB PO SCH (10:10)
[2020-01-22] MEDS: AZELASTINE 137MCG NASAL SPY 30 ML (ASTELIN) SCH ×2 (10:17→20:39)
[2020-01-22] MEDS: TOBRAMYCIN 0.3% OPHTH SOLN 5 ML OU SCH ×2 (10:17→20:39)
[2020-01-22] MEDS: COSOPT OCUMETER PLUS 10ML (DORZOLAMIDE/TIMOLOL) OU SCH ×2 (10:17→20:39)
[2020-01-22] MEDS: METOPROLOL TARTRATE 100 MG TAB PO SCH ×2 (10:42→20:39)
--- NOTE | 2020-01-22 10:55 | IPNPDOC ---
Subjective Date Seen The patient was seen on 01/22/20. Subjective Chief Complaint/HPI Patient is able to ambulate with physical therapy, swelling is much down on bilateral lower extremities General: Denies: ROS Unobtainable, Chills, Night Sweats, Fatigue, Malaise, Normal Appetite, Other Symptoms Constitutional: Denies: Chills, Fever, Malaise, Night Sweats, Weakness, Fatigue, Weight Loss, Lethargy, Other Skin: Denies: Rash, Lesions, Jaundice, Bruising, Itching, Dry, Breakdown, Nail Changes, Other Pulmonary: Denies: Dyspnea, Cough, Pleuritic Chest Pain, Other Symptoms Cardiovascular: Reports: Edema; Denies: Chest Pain, Palpitations, Orthopnea, Paroxysmal Noc. Dyspnea, Lt Headedness, Other Symptoms Gastrointestinal: Denies: Nausea, Vomiting, Abdominal Pain, Diarrhea, Constipation, Melena, Hematochezia, Other Symptoms Musculoskeletal: Denies: Neck Pain, Back Pain, Shoulder Pain, Arm Pain, Hand Pain, Leg Pain, Foot Pain, Joint Pain, Muscle Pain, Spasms, Other Symptoms Neurological: Denies: Weakness, Numbness, Incoordination, Change in speech, Confusion, Seizures, Other Symptoms Objective Physical Examination General Exam: Positive: Alert Eye Exam: Positive: PERRLA, Conjunctiva & lids normal Chest Exam: Positive: Clear to auscultation, Normal air movement Heart Exam: Positive: Rate Normal Abdomen Exam: Positive: Normal bowel sounds, Soft Extremity Exam: Positive: Edema (. 1+ bipedal edema), Normal pulses Skin Exam: Positive: Nl turgor and temperature Neuro Exam: Positive: Strength at 5/5 X4 ext, Sensation Intact, Cranial Nerves 3-12 NL Psych Exam: Positive: Mental status NL, Oriented x 3 Assessment /Plan Problems (1) Bilateral lower extremity edema Status: Acute Problem Text: 64-year-old -[place] male with history of lung cancer status post chemoradiation therapy, hypertension, gout, COPD, PTSD, asthma and SIADH develop increased swelling of his bilateral lower extremities in last 3 months, now patient is unable to ambulate secondary to pain and swelling of his bilateral lower extremities. Etiology is uncertain but could be secondary to peripheral vascular disease versus congestive heart failure or right-sided heart failure versus paraneoplastic syndrome Patient had a venous Doppler done in ED which was negative for DVT CT chest showed increased right pleural effusion and possible new right base atelectasis/infiltrate, doubt pneumonia as patient is a asymptomatic and afebrile at the present time. Patient does have a paramediastinal scarring CBC, CMP, urine are essentially negative and patient's ABG is in acceptable range. Does not require any oxygen supplementation Patient responded very well to IV Lasix Last night he was in negative balance of -795 Will change Lasix to by mouth today and monitor intake and output Echocardiogram is still pending to assess cardiac function Physical therapy evaluation was done, patient probably needs to 3 more sessions before discharge, not cleared by physical therapy for discharge. (2) Pleural effusion Status: Acute Problem Text: Small pleural effusion was noted that patient has no symptoms of shortness of breath We'll continue monitoring clinically (3) Lung cancer Status: Chronic Problem Text: Status post radiation and chemotherapy Continue home meds (4) GERD (gastroesophageal reflux disease) Status: Chronic Problem Text: Continue home meds Plan/VTE VTE Prophylaxis Ordered?: Yes VS, I&O, 24H, Fishbone Vital Signs/I&O Vital Signs Date Time Temp Pulse Resp B/P (MAP) Pulse Ox O2 Delivery O2 Flow Rate FiO2 01/22/20 10:42 90 01/22/20 09:00 103/73 01/22/20 06:00 98.4 16 96 Room Air I&O- Last 24 Hours up to 6 AM 01/22/20 06:00 Intake Total 2120 ml Output Total 1500 ml Balance 620 ml Laboratory Data 24H LABS Laboratory Tests 2 01/22/20 05:50: Immature Granulocyte % (Auto) 0.4, Neutrophils (%) (Auto) 76.7H, Lymphocytes (%) (Auto) 8.7L, Monocytes (%) (Auto) 7.7H, Eosinophils (%) (Auto) 6.2H, Basophils (%) (Auto) 0.3, Neutrophils # (Auto) 6.1, Lymphocytes # (Auto) 0.7L, Monocytes # (Auto) 0.6, Eosinophils # (Auto) 0.5, Basophils # (Auto) 0.0, Nucleated Red Blood Cells % (auto) 0.0, Anion Gap 8, Glomerular Filtration Rate > 60.0, Calcium Level 8.5L, Total Bilirubin 0.6, Aspartate Amino Transf (AST/SGOT) 37, A lanine Aminotransferase (ALT/SGPT) 36, Alkaline Phosphatase 91, Total Protein 5.5L, Albumin 2.6L, Albumin/Globulin Ratio 0.90L CBC/BMP Laboratory Tests 01/22/20 05:50 OWEN RIOS MD Jan 22, 2020 10:54
--- NOTE | 2020-01-22 11:47 | DS.PDOC ---
Discharge Summary General Date of Admission Jan 20, 2020 at 11:53 Date of Discharge 01/23/20 Discharge Summary PROCEDURES PERFORMED DURING STAY: None. ADMITTING DIAGNOSES: 1. Bilateral lower extremity edema. DISCHARGE DIAGNOSES: 1. Bilateral lower extremity edema, lung cancer, gout, PTSD, COPD, GERD, asthma, SIADH. COMPLICATIONS/CHIEF COMPLAINT: Bilateral Lower Extremity Edema. 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 Caceres last time he is seen her in November of this year. Patient this time but complains of increasing swelling of his bilateral legs and now he has difficulty ambulation, as per patient's swelling is started 3 months ago. He had mentioned it to Dr. Caceres and she recommended observation any a poor yield PCP who started hydrochlorothiazide without any significant relief with the symptoms. Now he has difficulty ambulation and decided come to ER. Patient denies any chest pain, shortness of breath, nausea, vomiting, abdominal pain, fever, etc.. HOSPITAL COURSE: This is 64-year-old -[place] male with history of lung cancer status post chemoradiation therapy, hypertension, gout, COPD, PTSD, asthma and SIADH develop increased swelling of his bilateral lower extremities in last 3 months, now patient is unable to ambulate secondary to pain and swelling of his bilateral lower extremities. Etiology is uncertain but could be secondary to peripheral vascular disease versus congestive heart failure or right-sided heart failure versus paraneoplastic syndrome Patient had a venous Doppler done in ED which was negative for DVT CT chest showed increased right pleural effusion and possible new right base atelectasis/infiltrate, doubt pneumonia as patient is a asymptomatic and afebrile at the present time. Patient does have a paramediastinal scarring CBC, CMP, urine are essentially negative and patient's ABG is in acceptable range. Does not require any oxygen supplementation Patient initially was started on IV Lasix with a good urinary output, which was later changed to by mouth Lasix today, patient probably diuresed about 2 L of urine in the last 48 hours Patient's bipedal edema has decreased to 1+ now and will continue monitoring on the by mouth Lasix Patient's echocardiogram is still pending, which was ordered to assess patient's cardiac function as well, hence, patient has a history of right lung cancer. We will like to rule out cor pulmonale of pulmonary hypertension causing bipedal edema. Physical therapy evaluation was done, patient probably needs to 3 more sessions before discharge, not cleared by physical therapy for discharge. Patient can be discharged home once cleared from physical therapy and echocardiogram is within normal limits and the further management has been considering after reviewing the echocardiogram report. DISCHARGE MEDICATIONS: Please see below. ALLERGIES: Please see below. PHYSICAL EXAMINATION ON DISCHARGE: VITAL SIGNS: Please see below. GENERAL: Normal HEENT: PERRLA. Extraocular muscles intact NECK: Supple CARDIOVASCULAR EXAMINATION: S1, S2, regular RESPIRATORY EXAMINATION: Clear to A&P ABDOMINAL EXAMINATION: , Soft, nontender, bowel sounds present. No organomegaly EXTREMITIES: No clubbing, cyanosis, edema SKIN: Normal NEUROLOGICAL EXAMINATION: . No focal motor sensory deficit PSYCHIATRIC EXAMINATION: Normal LABORATORY DATA: Please see below. IMAGING: Echocardiogram: Report pending PROGNOSIS: Good ACTIVITY: As tolerated. DIET: 2 g sodium DISCHARGE PLAN: Discharge home once the echocardiogram is done and is normal DISPOSITION: . Home DISCHARGE INSTRUCTIONS: 1. As per discharge instructions. ITEMS TO FOLLOWUP ON ON OUTPATIENT: 1. Follow with PCP and Dr. Caceres as an outpatient. DISCHARGE CONDITION: Stable. TIME SPENT ON DISCHARGE: 40 minutes. Vital Signs/I&Os Vital Signs Date Time Temp Pulse Resp B/P (MAP) Pulse Ox O2 Delivery O2 Flow Rate FiO2 01/22/20 10:42 90 01/22/20 09:00 103/73 01/22/20 06:00 98.4 16 96 Room Air I&O- Last 24 Hours up to 6 AM 01/22/20 06:00 Intake Total 2120 ml Output Total 1500 ml Balance 620 ml Laboratory Data Labs 24H Laboratory Tests 2 01/22/20 05:50: Immature Granulocyte % (Auto) 0.4, Neutrophils (%) (Auto) 76.7H, Lymphocytes (%) (Auto) 8.7L, Monocytes (%) (Auto) 7.7H, Eosinophils (%) (Auto) 6.2H, Basophils (%) (Auto) 0.3, Neutrophils # (Auto) 6.1, Lymphocytes # (Auto) 0.7L, Monocytes # (Auto) 0.6, Eosinophils # (Auto) 0.5, Basophils # (Auto) 0.0, Nucleated Red Blood Cells % (auto) 0.0, Anion Gap 8, Glomerular Filtration Rate > 60.0, Calcium Level 8.5L, Total Bilirubin 0.6, Aspartate Amino Transf (AST/SGOT) 37, Alanine Aminotransferase (ALT/SGPT) 36, Alkaline Phosphatase 91, Total Protein 5.5L, Albumin 2.6L, Albumin/Globulin Ratio 0.90L CBC/BMP Laboratory Tests 01/22/20 05:50 Discharge Medications Scheduled Allopurinol (Allopurinol) 100 Mg Tab, 100 MG PO DAILY, (Reported) Aspirin (Aspirin EC) 81 Mg Tablet.dr, 81 MG PO DAILY, (Reported) Azelastine HCl (Azelastine HCl) 0.1 % Spr, 2 SPRAYS NARES BID, (Reported) Cetirizine HCl (Cetirizine HCl) 10 Mg Tab, 10 MG PO DAILY, (Reported) Cholecalciferol (Vitamin D3) (Vitamin D3) 1,000 Unit Tablet, 2,000 UNITS PO DAILY, (Reported) Clonazepam (Clonazepam) 0.5 Mg Tablet, 0.5 MG PO BID, (Reported) Clonidine HCl (Clonidine HCl) 0.1 Mg Tab, 0.1 MG PO DAILY, (Reported) Clonidine HCl (Clonidine HCl) 0.1 Mg Tab, 0.2 MG PO QHS, (Reported) Diphenhydramine HCl (Diphenhydramine HCl) 50 Mg Cap, 100 MG PO QHS, (Reported) Dorzolamide HCl/Timolol Maleat (Dorzolamide-Timolol Eye Drops) 1 [place], 1 DROP OP BID, (Reported) Doxepin HCl (Doxepin HCl) 25 Mg Cap, 75 MG PO QAM, (Reported) Doxepin HCl (Doxepin HCl) 25 Mg Cap, 50 MG PO QHS, (Reported) Fluoride (Sodium) (Prevident 5000 Plus) 1.1 % Cre, 1 DOSE MT BID, (Reported) Fluticasone Propion/Salmeterol (Wixela 250-50 Inhub) 1 Each Blst.w.dev, 1 EACH INH BID, (Reported) Folic Acid (Folic Acid) 1 Mg Tablet, 1 MG PO DAILY, (Reported) Hydrochlorothiazide (Hydrochlorothiazide) 12.5 Mg Capsule, 12.5 MG PO DAILY, (Reported) Latanoprost (Xalatan) 0.005 % Layne, 1 DROP OU QHS, (Reported) Metoprolol Tartrate (Metoprolol Tartrate) 100 Mg Tab, 100 MG PO BID, (Reported) Omeprazole (Omeprazole) 20 Mg Cap, 20 MG PO BID, (Reported) Polyethylene Glycol 3350 (Polyethylene Glycol 3350) 510 Gm Powder, 510 GM PO BIDP, (Reported) Sildenafil Citrate (Sildenafil Citrate) 100 Mg Tablet, 100 MG PO ASDIRECTED, (Reported) Tobramycin (Tobramycin) 0.3% 5ML Drops, 1 DROP OU BID, (Reported) Scheduled PRN Albuterol Sulfate (Ventolin Hfa) 108 Mcg/Act Aer, 2 PUFFS INH Q4H PRN for SHORTNESS OF BREATH, (Reported) Ondansetron HCl (Ondansetron HCl) 8 Mg Tab, 8 MG PO Q6H PRN for NAUSEA, (Reported) Allergies Coded Allergies: ibuprofen (Verified Allergy, Intermediate, rash, itching, 08/27/19) NSAIDS (Non-Steroidal Anti-Inflamma (Verified Allergy, Unknown, 08/27/19) Sulfa (Sulfonamide Antibiotics) (Verified Allergy, Unknown, 08/27/19) amitriptyline (Verified Allergy, Unknown, 08/27/19) cefuroxime (Verified Allergy, Unknown, 08/27/19) diltiazem (Verified Allergy, Unknown, 08/27/19) fosinopril (Verified Allergy, Unknown, 08/27/19) gabapentin (Verified Allergy, Unknown, 08/27/19) losartan (Verified Allergy, Unknown, 08/27/19) OWEN RIOS MD Jan 22, 2020 11:47
[2020-01-22 14:00] VITALS: BP 130/83
--- NOTE | 2020-01-22 20:21 | ECHO ---
DATE OF PROCEDURE: 01/22/2020 Date of : 1955 Age: 64 Gender: Male Height: 75 inches Weight: 227 pounds Body surface area: 2.32 meters squared Inpatient: [address] [place] [address], room 4226. REFERRING PHYSICIAN: Dr. London Parikh INDICATION: Edema. MEASUREMENTS: 2D Measurements: RV: 3.2 cm LV: 4.7 cm Septum: 1.1 cm Posterior wall: 1.1 cm Aortic root: 3.8 cm LA: 3.6 cm LVEF: 65% Doppler Measurements: AV: Questionable. LVOT: Questionable. LVOT diameter: 2.4 cm MV: Questionable. PV: 0.8 meters per second Pulmonary artery acceleration time: 102 milliseconds PASP: 30 mmHg IVC: 1.7 cm COMMENTS: Normal sinus rhythm without intraventricular conduction disturbance. Technically difficult study in light of the patient's body habitus but some diagnostic information was obtainable M-mode and two-dimensional echocardiography was performed with attempted pulsed, continuous wave, and attempted tissue Doppler studies. Normal left ventricular size and wall thickness with normal wall motion. Normal left atrial size but could not assess LV diastolic dysfunction or estimate his mean left atrial pressure. Normal appearing right heart chamber sizes and motion with Doppler evidence of pulmonary arterial pressure upper limits of normal to borderline increased. Normal inferior vena cava (IVC) size and collapse against an elevated central venous pressure. Normal aortic diameters. 3 equal sized aortic cusps with slightly thickened cusp edges but adequate cusp separation.Could not determine whether the patient had any aortic insufficiency. Normal appearing and functioning mitral valve. Normal appearing tricuspid valve with mild insufficiency. Unable to detect any intracardiac mass or pericardial effusion. MTDD
[2020-01-22] MEDS: diphenhydrAMINE 50MG CAP PO SCH (20:38)
[2020-01-22] MEDS: LATANOPROST 0.005% OPHTH SOLN 2.5 ML OU SCH (20:39)
[2020-01-22] MEDS: cloNIDine 0.2 MG TAB PO SCH (20:39)
[2020-01-22 22:00] VITALS: BP 111/77
[2020-01-22] MEDS ORDERED: MAGNESIUM OXIDE 400 MG TAB (MAG-OX) PO ONE (23:45)
[2020-01-22] MEDS ORDERED: MAG SULF 1GM/100ML (MAG RUN) 1 GM in IV 1 EA IV ONE (23:45)
[2020-01-23 06:00] VITALS: BP 122/87
[2020-01-23] MEDS: cloNIDine 0.1 MG TAB PO SCH ×2 (09:00→09:26)
[2020-01-23] MEDS ORDERED: FUROSEMIDE 40 MG TAB PO SCH (09:00)
[2020-01-23] MEDS: METOPROLOL TARTRATE 100 MG TAB PO SCH ×3 (09:00→21:54)
[2020-01-23] MEDS: COSOPT OCUMETER PLUS 10ML (DORZOLAMIDE/TIMOLOL) OU SCH ×2 (09:22→21:44)
[2020-01-23] MEDS: TOBRAMYCIN 0.3% OPHTH SOLN 5 ML OU SCH ×2 (09:22→21:00)
[2020-01-23] MEDS: AZELASTINE 137MCG NASAL SPY 30 ML (ASTELIN) SCH ×2 (09:22→21:43)
[2020-01-23] MEDS: clonazePAM 0.5 MG TAB PO SCH ×2 (09:23→21:54)
[2020-01-23] MEDS: HEPARIN SOD (PORCINE) 5000 UNITS/ML VIAL (J1644 PER 1000UNITS) SQ SCH ×2 (09:23→21:54)
[2020-01-23] MEDS: ASPIRIN 81 MG ENTERIC TAB PO SCH (09:24)
[2020-01-23] MEDS: MAGNESIUM OXIDE 400 MG TAB (MAG-OX) PO SCH ×3 (09:26→21:54)
[2020-01-23] MEDS: DOXEPIN 25 MG CAP PO SCH ×2 (09:26→21:54)
[2020-01-23] MEDS: FOLIC ACID 1 MG TAB PO SCH (09:27)
[2020-01-23] MEDS: CETIRIZINE (ZyrTEC) 10 MG TAB PO SCH (09:27)
[2020-01-23] MEDS: allopurinoL 100 MG TAB PO SCH (09:27)
[2020-01-23] MEDS: OMEPRAZOLE 20 MG CAP PO SCH ×2 (09:27→21:54)
[2020-01-23] MEDS: VITAMIN D 1,000 INTERNATIONAL UNITS TABLET PO SCH (09:28)
[2020-01-23] MEDS: DOCUSATE SODIUM 100 MG CAP PO SCH ×2 (09:28→21:54)
[2020-01-23] MEDS: NS 1,000 ML IV SCH ×2 (10:35→21:35)
[2020-01-23 14:00] VITALS: BP 110/75
[2020-01-23 14:30] LABS: CALCIUM LEVEL 8.5 MG/DL (8.8-10.2); CREATININE FOR GFR 1.58 MG/DL (0.70-1.30); GLOMERULAR FILTRATION RATE 57.6 (>49); POTASSIUM SERUM 3.6 MEQ/L (3.5-5.1)
--- NOTE | 2020-01-23 19:26 | IPNPDOC ---
Date Seen The patient was seen on 01/23/20. Progress Note SUBJECTIVE: Cr increased to 1.5 from 01/22/20. D/mary lasix, started IVFs. Likely overdiuresing. When Cr improved, consider discharge home. F/u magnesium in AM. Denies chest pain, n/v/d, fever, shortness of breath. OBJECTIVE: VITAL SIGNS: Please see below PHYSICAL EXAMINATION: CONSTITUTIONAL: No acute distress, resting comfortably, AAO x 3 EYES: PERRLA, EOM intact HENT, MOUTH: Normocephalic, atraumatic, moist mucous membranes NECK: SUPPLE, no JVD, no lymphadenopathy, no carotid bruit CV: Regular rate and rhythm, S1S2 normal, no murmurs/rubs/gallops RESPIRATORY: Clear to auscultation bilaterally, no rales/rhonchi/wheezes GI: BS positive in 4 quadrants, soft, nontender, nondistended, no rebound or guarding, no organomegaly : Deferred MUSCULOSKELETAL: Normal ROM. No cyanosis, clubbing, swelling, joint deformity, nonpitting in the RLE, +1 pitting extremity edema in LLE INTEGUMENTARY: Intact, no rashes, no lesions, no erythema NEUROLOGIC: Cranial Nerves II-XII are intact, no focal deficits PSYCHIATRIC: Mood and affect are normal CURRENT MEDICATIONS: Please see below LABORATORY DATA: Please see below IMAGING: Doppler done in ED which was negative for DVT CT chest showed increased right pleural effusion and possible new right base atelectasis/infiltrate. Echo: No suspicion for pericardial effusion, CM ASSESSMENT: PLAN: 1. Acute on chronic CKD, stage unknown. Started IVFs, monitor for fluid overload. Baseline Cr 1.4, currently increased further to 1.5. If near normal by 01/24/20, consider discharge home with low dose lasix. Avoid other nephrotoxic medications. 2. Bilateral lower extremity edema, chronic. Improving with lasix but needed to stop due to KAMALJIT. Echo did not show concerning findings. Has been in neg balance but Cr increased significantly. Resume lasix when Cr wnl. 3. Physical deconditioning. PT/OT. 4. Pleural effusion. Small pleural effusion was noted that patient has no symptoms of shortness of breath. Resume lasix when appropriate. 5. Lung cancer. Status post radiation and chemotherapy. Continue home meds. F/u with heme/onc after discharge. 6. GERD (gastroesophageal reflux disease). Continue home meds 7. DVT px. Heparin SC Q12 hrs. DISPOSITION: Currently inpatient status. Plan is discharge home when Cr near baseline 1.4, hopefully in next 24-48 hrs. VS, I&O, 24H, Fishbone Vital Signs/I&O Vital Signs Date Time Temp Pulse Resp B/P (MAP) Pulse Ox O2 Delivery O2 Flow Rate FiO2 01/23/20 14:00 97.5 86 14 110/75 (87) 97 Room Air I&O- Last 24 Hours up to 6 AM 01/23/20 06:00 Intake Total 1285 ml Output Total 1350 ml Balance -65 ml Laboratory Data 24H LABS Laboratory Tests 2 01/22/20 22:47: Magnesium Level 1.4L 01/23/20 14:01: Anion Gap 5L, Glomerular Filtration Rate 57.6, Calcium Level 8.5L CBC/BMP Laboratory Tests 01/23/20 14:01 Current Medications Current Medications Medications (Trade) Dose Ordered Sig/Talat Route PRN Reason Start Time Stop Time Status Last Admin Dose Admin Acetaminophen (Tylenol Tab) 650 mg Q4H PRN PO PAIN OR FEVER 01/20/20 12:00 Al Hydrox/Mg Hydrox/Simethicone (Mylanta) 30 ml DAILY PRN PO DYSPEPSIA 01/20/20 12:00 Albuterol Sulfate (Proventil, Ventolin Hfa) 2 puff Q4H PRN INH SHORTNESS OF BREATH 01/20/20 12:00 Allopurinol (Zyloprim) 100 mg DAILY PO 01/20/20 09:00 01/23/20 09:27 Aspirin (Ecotrin) 81 mg DAILY PO 01/20/20 09:00 01/23/20 09:24 Aspirin (Ecotrin) 81 mg DAILY PO 01/20/20 12:54 01/20/20 12:54 DC Aspirin (Ecotrin) 162 mg DAILY PO 01/20/20 09:00 01/20/20 12:54 DC Azelastine HCl (Astelin) 2 spray BID NA 01/20/20 21:00 01/23/20 09:22 Cetirizine HCl (ZyrTEC) 10 mg DAILY PO 01/20/20 09:00 01/23/20 09:27 Clonazepam (KlonoPIN) 0.5 mg BID PO 01/20/20 21:00 01/23/20 09:23 Clonidine HCl (Catapres) 0.1 mg DAILY PO 01/20/20 09:00 01/21/20 08:23 Clonidine HCl (Catapres) 0.2 mg QHS PO 01/20/20 21:00 01/22/20 20:39 Diphenhydramine HCl (Benadryl) 100 mg QHS PO 01/20/20 21:00 01/22/20 20:38 Docusate Sodium (Colace) 100 mg BID PO 01/20/20 21:00 01/23/20 09:28 Dorzolamide/ Timolol (Cosopt Ocumeter Plus) 1 drop BID OU 01/20/20 21:00 01/23/20 09:22 Doxepin HCl (SINEquan) 50 mg QHS PO 01/20/20 21:00 01/22/20 20:38 Doxepin HCl (SINEquan) 75 mg QAM PO 01/21/20 09:00 01/23/20 09:26 Folic Acid (Folic Acid) 1 mg DAILY PO 01/20/20 09:00 01/23/20 09:27 Furosemide (Lasix) 20 mg BID@0900,1700 PO 01/23/20 09:00 01/23/20 10:17 DC 01/23/20 09:23 Furosemide (Lasix) 40 mg BID@09,17 PO 01/20/20 17:00 01/23/20 08:15 DC 01/22/20 17:15 Heparin Sodium (Porcine) (Heparin) 5,000 units Q12H SQ 01/20/20 09:00 01/23/20 09:23 Latanoprost (Xalatan 0.005% Op Soln) 1 drop QHS OU 01/20/20 21:00 01/22/20 20:39 Losartan Potassium (Cozaar) 50 mg QHS PO 01/20/20 21:00 Cancel Magnesium Hydroxide (Milk Of Magnesia) 30 ml DAILY PRN PO CONSTIPATION 01/20/20 12:00 Magnesium Oxide (Mag-Ox) 400 mg TID PO 01/23/20 09:00 01/23/20 16:46 Magnesium Sulfate/ Dextrose 1 gm/IV Miscellaneous Supplies 100 ml @ 100 mls/hr Q1H IV 01/21/20 18:00 01/21/20 19:59 DC 01/21/20 17:35 Metoprolol Tartrate (Lopressor) 100 mg BID PO 01/20/20 21:00 01/22/20 20:39 Omeprazole (PriLOSEC) 20 mg BID PO 01/20/20 21:00 01/23/20 09:27 Ondansetron HCl (Zofran) 8 mg Q6H PRN PO NAUSEA 01/20/20 12:00 Polyethylene Glycol (Miralax) 1 pkt BIDP PRN PO CONSTIPATION 01/20/20 12:00 Sodium Chloride 1,000 ml @ 80 mls/hr [id number] IV 01/23/20 10:15 01/23/20 10:35 Tobramycin Sulfate (Tobrex 0.3% Ophth Layne) 1 drop BID OU 01/20/20 21:00 01/23/20 09:22 Vitamin D (Vitamin D) 2,000 units DAILY PO 01/21/20 09:00 01/23/20 09:28 Allergies Coded Allergies: ibuprofen (Verified Allergy, Intermediate, rash, itching, 08/27/19) NSAIDS (Non-Steroidal Anti-Inflamma (Verified Allergy, Unknown, 08/27/19) Sulfa (Sulfonamide Antibiotics) (Verified Allergy, Unknown, 08/27/19) amitriptyline (Verified Allergy, Unknown, 08/27/19) cefuroxime (Verified Allergy, Unknown, 08/27/19) diltiazem (Verified Allergy, Unknown, 08/27/19) fosinopril (Verified Allergy, Unknown, 08/27/19) gabapentin (Verified Allergy, Unknown, 08/27/19) losartan (Verified Allergy, Unknown, 08/27/19) Concepcion Schmidt MD Jan 23, 2020 19:26
[2020-01-23] MEDS: LATANOPROST 0.005% OPHTH SOLN 2.5 ML OU SCH (21:00)
[2020-01-23] MEDS: cloNIDine 0.2 MG TAB PO SCH (21:53)
[2020-01-23] MEDS: diphenhydrAMINE 50MG CAP PO SCH (21:53)
[2020-01-23 22:00] VITALS: BP 110/71
[2020-01-24 05:59] LABS: HEMATOCRIT 31.5 % (42.0-52.0); MEAN CORPUSCULAR HEMOGLOBIN 32.6 pg (27.0-33.0); MEAN CORPUSCULAR HGB CONC 34.9 g/dl (32.0-36.5); MEAN CORPUSCULAR VOLUME 93.5 fl (80.0-96.0); PLATELET COUNT, AUTOMATED 242 10^3/uL (150-450); RED BLOOD COUNT 3.37 10^6/uL (4.30-6.10); WHITE BLOOD COUNT 6.1 10^3/uL (4.0-10.0)
[2020-01-24 06:00] VITALS: BP 103/59
[2020-01-24 06:24] LABS: ALBUMIN 2.4 GM/DL (3.2-5.2); ALT/SGPT 30 U/L (12-78); BILIRUBIN,TOTAL 0.6 MG/DL (0.2-1.0); BLOOD UREA NITROGEN 21 MG/DL (7-18); CALCIUM LEVEL 8.2 MG/DL (8.8-10.2); CARBON DIOXIDE LEVEL 29 MEQ/L (21-32); CHLORIDE LEVEL 104 MEQ/L (98-107); CREATININE FOR GFR 1.34 MG/DL (0.70-1.30); GLOMERULAR FILTRATION RATE > 60.0 (>49); GLUCOSE, FASTING 84 MG/DL (70-100); MAGNESIUM LEVEL 1.7 MG/DL (1.8-2.4); POTASSIUM SERUM 3.7 MEQ/L (3.5-5.1); SODIUM LEVEL 137 MEQ/L (136-145)
[2020-01-24] MEDS: NS 1,000 ML IV SCH (07:35)
[2020-01-24] MEDS ORDERED: LASI40TA9 PO (08:20)
[2020-01-24] MEDS ORDERED: MAG400TA PO (08:20)
[2020-01-24] MEDS ORDERED: MAGNESIUM OXIDE 400 MG TAB (MAG-OX) PO ONE (08:30)
[2020-01-24] MEDS: HEPARIN SOD (PORCINE) 5000 UNITS/ML VIAL (J1644 PER 1000UNITS) SQ SCH (08:40)
[2020-01-24] MEDS: DOXEPIN 25 MG CAP PO SCH (08:42)
[2020-01-24] MEDS: clonazePAM 0.5 MG TAB PO SCH (08:42)
[2020-01-24] MEDS: allopurinoL 100 MG TAB PO SCH (08:42)
[2020-01-24] MEDS: CETIRIZINE (ZyrTEC) 10 MG TAB PO SCH (08:42)
[2020-01-24] MEDS: ASPIRIN 81 MG ENTERIC TAB PO SCH (08:42)
[2020-01-24] MEDS: FOLIC ACID 1 MG TAB PO SCH (08:42)
[2020-01-24] MEDS: VITAMIN D 1,000 INTERNATIONAL UNITS TABLET PO SCH (08:42)
[2020-01-24] MEDS: OMEPRAZOLE 20 MG CAP PO SCH (08:42)
[2020-01-24 08:43] VITALS: BP 117/55
[2020-01-24] MEDS: cloNIDine 0.1 MG TAB PO SCH (08:43)
[2020-01-24] MEDS: METOPROLOL TARTRATE 100 MG TAB PO SCH (08:43)
[2020-01-24] MEDS: DOCUSATE SODIUM 100 MG CAP PO SCH (08:43)
[2020-01-24] MEDS: COSOPT OCUMETER PLUS 10ML (DORZOLAMIDE/TIMOLOL) OU SCH (08:44)
[2020-01-24] MEDS: AZELASTINE 137MCG NASAL SPY 30 ML (ASTELIN) SCH (08:44)
[2020-01-24] MEDS: TOBRAMYCIN 0.3% OPHTH SOLN 5 ML OU SCH (08:44)
--- NOTE | 2020-01-24 14:17 | DS.PDOC ---
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 Caceres last time he is seen her in November of this year. Patient this time but complains of increasing swelling of his bilateral legs and now he has difficulty ambulation, as per patient's swelling is started 3 months ago. He had mentioned it to Dr. Caceres and she recommended observation any a poor yield PCP who started hydrochlorothiazide without any significant relief with the symptoms. Now he has difficulty ambulation and de cided come to ER. Patient denies any chest pain, shortness of breath, nausea, vomiting, abdominal pain, fever, etc.. HOSPITAL COURSE: The patient developed increased swelling of his bilateral lower extremities in last 3 months, now patient is unable to ambulate secondary to pain and swelling of his bilateral lower extremities. Etiology is uncertain but could be secondary to peripheral vascular disease versus congestive heart failure or right-sided heart failure versus paraneoplastic syndrome. Patient had a venous Doppler done in ED which was negative for DVT. CT chest showed increased right pleural effusion and possible new right base atelectasis/infiltrate, doubt pneumonia as patient is a asymptomatic and afebrile at the present time. Patient does have a paramediastinal scarring CBC, CMP, urine are essentially negative and patient's ABG is in acceptable range. Does not require any oxygen supplementation. Patient initially was started on IV Lasix with a good urinary output, which was later changed to by mouth Lasix today, patient probably diuresed about 2 L of urine in the last 48 hours. Echocardiogram showed no pericardial effusion, CM and showed preserved EF. Physical therapy evaluation was done, and later he was found to be independent with cane/walker. He developed worsening Cr after diuresis of 40 mg PO BID. This was stopped and gentle IVF hydration needed to be started, improving his Cr to near baseline. Patient was discharged home on 01/24/2020 in improved health, no new acute issues and decreased lower ext swelling. He was started on lasix daily to continue and recommended to have close f/u with PCP, specialist. REVIEW OF SYSTEMS: CONSTITUTIONAL: Denies lack of energy, unexplained weight gain or weight loss, loss of appetite, fever, night sweats EYES: Denies eye drainage, eye pain, visual changes, dry/irritated eye EARS, NOSE, MOUTH, THROAT: Denies difficulty hearing, ringing in ears, mouth sores, loose teeth, sore throat, facial numbness or pain NECK: Denies swollen glands CARDIOVASCULAR: Denies irregular heartbeat, racing heart, chest pains, swelling of feet or legs, pain in legs with walking RESPIRATORY: Denies shortness of breath, night sweats, wheezing, sputum production, oxygen at home, coughing up blood, cough lasting > 1 month GASTROINTESTINAL: Denies abdominal pain, constipation, bloody stool, diarrhea, heartburn, nausea, vomiting GENITOURINARY: Denies painful urination, bloody urine, frequent urination, urgency, leaking urine, impotence MUSCULOSKELETAL: Denies joint pain, muscle pain, leg swelling INTEGUMENTARY: Denies rash, itching, new skin lesion, change in existing skin lesion, hair loss or increase, breast changes. NEUROLOGICAL: Denies headaches, dizziness, difficulty walking, numbness or tingling PSYCHIATRIC: Denies depression, anxiety, recurrent bad thoughts, mood swings, hallucinations PAST MEDICAL HISTORY: Stage III, [id number] right lower lobe squamous cell carcinoma of the lung, S/P radiation therapy and chemotherapy Chemotherapy Cisplatin-induced nephrotoxicity Hypertension. Gout. Remote tobacco abuse for 7-1/2 pack years. Chronic obstructive pulmonary disease (COPD)/asthma. Posttraumatic stress disorder (PTSD). Seasonal allergies. Gastroesophageal reflux disease (GERD). SURGICAL HISTORY: Sinus surgery times three. Umbilical hernia repair. Right lung biopsy. Dental implants. FAMILY HISTORY: No history of cancer or diabetes in the family SOCIAL HISTORY: Twice a month TAC use, former smoker. No alcohol use. 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 DISCHARGE MEDICATIONS: Please see below. PHYSICAL EXAMINATION: CONSTITUTIONAL: No acute distress, resting comfortably, AAO x 3 EYES: PERRLA, EOM intact HENT, MOUTH: Normocephalic, atraumatic, moist mucous membranes NECK: SUPPLE, no JVD, no lymphadenopathy, no carotid bruit CV: Regular rate and rhythm, S1S2 normal, no murmurs/rubs/gallops RESPIRATORY: Clear to auscultation bilaterally, no rales/rhonchi/wheezes GI: BS positive in 4 quadrants, soft, nontender, nondistended, no rebound or guarding, no organomegaly : Deferred MUSCULOSKELETAL: Normal ROM. No cyanosis, clubbing, swelling, joint deformity, nonpitting in the RLE, +1 pitting extremity edema in b/l lower ext INTEGUMENTARY: Intact, no rashes, no lesions, no erythema NEUROLOGIC: Cranial Nerves II-XII are intact, no focal deficits PSYCHIATRIC: Mood and affect are normal CURRENT MEDICATIONS: Please see below LABORATORY DATA: Please see below IMAGING: Doppler done in ED which was negative for DVT CT chest showed increased right pleural effusion and possible new right base atelectasis/infiltrate. Echo: No suspicion for pericardial effusion, CM ASSESSMENT: 64 y/o M admitted and treated for bilateral lower ext edema, and KAMALJIT on CKD. PLAN: 1. 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 Hx of chemotherapy induced nephrotoxicity. Improved Cr after holding lasix BID and gently hydrating. Baseline Cr 1.4, today 1.38. Would recommend repeat BMP in several weeks, as he is being discharged with only daily lasix at discharge. Avoid other nephrotoxic medications. 2. Bilateral lower extremity edema, chronic. Lymphedema likely cause. Improving with lasix. Echo did not show concerning findings. Recommend bilateral lower ext compression stockings, daily lasix and close f/u. 3. Physical deconditioning. improving with PT/OT, deemed ok to go home today. 4. Pleural effusion. Small pleural effusion was noted that patient has no symptoms of shortness of breath. Resume lasix. 5. Lung cancer. Status post radiation and chemotherapy. Continue home meds. F/u with heme/onc after discharge. 6. GERD (gastroesophageal reflux disease). Continue home meds DISPOSITION: Discharged home today in improved condition. Patient is recommended to f/u with PCP within 1-2 weeks after discharge or sooner if increased shortness of breath, chest pain, n/v/d. TIME SPENT ON DISCHARGE: 25 minutes. Vital Signs/I&Os Vital Signs Date Time Temp Pulse Resp B/P (MAP) Pulse Ox O2 Delivery O2 Flow Rate FiO2 01/24/20 08:43 75 117/55 01/24/20 06:00 98.3 16 95 Room Air I&O- Last 24 Hours up to 6 AM 01/24/20 06:00 Intake Total 3430 ml Output Total 1025 ml Balance 2405 ml Laboratory Data Labs 24H Laboratory Tests 2 01/24/20 05:28: Nucleated Red Blood Cells % (auto) 0.0, Anion Gap 4L, Glomerular Filtration Rate > 60.0, Calcium Level 8.2L, Magnesium Level 1.7L, Total Bilirubin 0.6, Aspartate Amino Transf (AST/SGOT) 33, Alanine Aminotransferase (ALT/SGPT) 30, Alkaline Phosphatase 76, Total Protein 5.0L, Albumin 2.4L, Albumin/Globulin Ratio 0.92L CBC/BMP Laboratory Tests 01/24/20 05:28 Discharge Medications Scheduled Allopurinol (Allopurinol) 100 Mg Tab, 100 MG PO DAILY, (Reported) Aspirin (Aspirin EC) 81 Mg Tablet.dr, 81 MG PO DAILY, (Reported) Azelastine HCl (Azelastine HCl) 0.1 % Spr, 2 SPRAYS NARES BID, (Reported) Cetirizine HCl (Cetirizine HCl) 10 Mg Tab, 10 MG PO DAILY, (Reported) Cholecalciferol (Vitamin D3) (Vitamin D3) 1,000 Unit Tablet, 2,000 UNITS PO DAILY, (Reported) Clonazepam (Clonazepam) 0.5 Mg Tablet, 0.5 MG PO BID, (Reported) Clonidine HCl (Clonidine HCl) 0.1 Mg Tab, 0.1 MG PO DAILY, (Reported) Clonidine HCl (Clonidine HCl) 0.1 Mg Tab, 0.2 MG PO QHS, (Reported) Diphenhydramine HCl (Diphenhydramine HCl) 50 Mg Cap, 100 MG PO QHS, (Reported) Dorzolamide HCl/Timolol Maleat (Dorzolamide-Timolol Eye Drops) 1 [place], 1 DROP OP BID, (Reported) Doxepin HCl (Doxepin HCl) 25 Mg Cap, 75 MG PO QAM, (Reported) Doxepin HCl (Doxepin HCl) 25 Mg Cap, 50 MG PO QHS, (Reported) Fluoride (Sodium) (Prevident 5000 Plus) 1.1 % Cre, 1 DOSE MT BID, (Reported) Fluticasone Propion/Salmeterol (Wixela 250-50 Inhub) 1 Each Blst.w.dev, 1 EACH INH BID, (Reported) Folic Acid (Folic Acid) 1 Mg Tablet, 1 MG PO DAILY, (Reported) Furosemide (Lasix) 40 Mg Tablet, 40 MG PO DAILY Latanoprost (Xalatan) 0.005 % Layne, 1 DROP OU QHS, (Reported) Magnesium Oxide (Magnesium Oxide) 400 Mg Tablet, 400 MG PO BID Metoprolol Tartrate (Metoprolol Tartrate) 100 Mg Tab, 100 MG PO BID, (Reported) Omeprazole (Omeprazole) 20 Mg Cap, 20 MG PO BID, (Reported) Polyethylene Glycol 3350 (Polyethylene Glycol 3350) 510 Gm Powder, 510 GM PO BIDP, (Reported) Sildenafil Citrate (Sildenafil Citrate) 100 Mg Tablet, 100 MG PO ASDIRECTED, (Reported) Tobramycin (Tobramycin) 0.3% 5ML Drops, 1 DROP OU BID, (Reported) Scheduled PRN Albuterol Sulfate (Ventolin Hfa) 108 Mcg/Act Aer, 2 PUFFS INH Q4H PRN for SHORTNESS OF BREATH, (Reported) Ondansetron HCl (Ondansetron HCl) 8 Mg Tab, 8 MG PO Q6H PRN for NAUSEA, (Re ported) Allergies Coded Allergies: ibuprofen (Verified Allergy, Intermediate, rash, itching, 08/27/19) NSAIDS (Non-Steroidal Anti-Inflamma (Verified Allergy, Unknown, 08/27/19) Sulfa (Sulfonamide Antibiotics) (Verified Allergy, Unknown, 08/27/19) amitriptyline (Verified Allergy, Unknown, 08/27/19) cefuroxime (Verified Allergy, Unknown, 08/27/19) diltiazem (Verified Allergy, Unknown, 08/27/19) fosinopril (Verified Allergy, Unknown, 08/27/19) gabapentin (Verified Allergy, Unknown, 08/27/19) losartan (Verified Allergy, Unknown, 08/27/19) Concepcion Schmidt MD Jan 24, 2020 14:17
== END 2020-01-24 11:23 | disposition home or self-care (01) | DRG 948 ==
LOC: M ED 05:21 → M ED INP 11:53 → ENRESERV 12:13 → M MSPAV 14:39
PROVIDERS: ADMIT Internal Medicine; ATTEND Internal Medicine
DX: R60.0 Localized edema (principal); C34.90 Malignant neoplasm of unspecified part of unspecified bronchus or lung; E22.2 Syndrome of inappropriate secretion of antidiuretic hormone; J90 Pleural effusion, not elsewhere classified; N18.3 Chronic kidney disease, stage 3 (moderate); I12.9 Hypertensive chronic kidney disease with stage 1 through stage 4 chronic kidney disease, or unspecified chronic kidney disease; M10.9 Gout, unspecified; F43.10 Post-traumatic stress disorder, unspecified; J44.9 Chronic obstructive pulmonary disease, unspecified; K21.9 Gastro-esophageal reflux disease without esophagitis; Z87.891 Personal history of nicotine dependence; Z79.899 Other long term (current) drug therapy; Z79.82 Long term (current) use of aspirin; Z88.2 Allergy status to sulfonamides; Z88.6 Allergy status to analgesic agent; E83.42 Hypomagnesemia; Z92.3 Personal history of irradiation; Z92.21 Personal history of antineoplastic chemotherapy; I73.9 Peripheral vascular disease, unspecified

== ENCOUNTER 2020-02-01 10:47 | Emergency (ER) | payer OTHER ==
[~2020-02-01] VITALS: Ht 190.5 cm; Wt 97.7 kg
[~2020-02-01 10:47] MED LIST changes: +ASPI-226 PO; +FLUT1BLS2 INH; +HYDR12CA PO; +LASI40TA9 PO; +MAG400TA PO; +SILD100T PO; +VITAD1000T PO
[2020-02-01] MEDS ORDERED: SODIUM CHLORIDE 0.9% INJ 10 ML SYR IV PRN (11:15)
[2020-02-01 12:09] LABS: BASO % 0.2 % (0.0-1.0); EOS # 0.6 10^3/uL (0.0-0.5); EOS % 6.6 % (0.0-3.0); HEMATOCRIT 32.8 % (42.0-52.0); HEMOGLOBIN 11.2 g/dl (13.5-17.5); LYMPH # 0.6 10^3/uL (1.5-5.0); LYMPH % 5.8 % (24.0-44.0); MEAN CORPUSCULAR HEMOGLOBIN 31.5 pg (27.0-33.0); MEAN CORPUSCULAR HGB CONC 34.1 g/dl (32.0-36.5); MEAN CORPUSCULAR VOLUME 92.4 fl (80.0-96.0); MONO # 0.4 10^3/uL (0.0-0.8); MONO % 4.3 % (0.0-5.0); NEUTROPHILS # 7.9 10^3/uL (1.5-8.5); NEUTROPHILS % 82.8 % (36.0-66.0); PLATELET COUNT, AUTOMATED 302 10^3/uL (150-450); RED BLOOD COUNT 3.55 10^6/uL (4.30-6.10); WHITE BLOOD COUNT 9.6 10^3/uL (4.0-10.0)
--- NOTE | 2020-02-01 12:13 | REP ---
CT BRAIN WITHOUT CONTRAST: CT brain performed without IV contrast. Comparison is made with prior MRI of 07/04/2019. There is very mild atrophy. There is no midline shift or mass effect. There are very mild periventricular small vessel ischemic changes which are chronic in nature. There is no acute intracranial hemorrhage. There is no extra-axial fluid collection. There are vascular calcifications in the carotid siphons. There is moderate diffuse mucosal thickening in the ethmoid sinuses. There is mild mucosal thickening in the other paranasal sinuses. IMPRESSION: Mild atrophy and periventricular small vessel ischemic changes, chronic in nature. No midline shift or mass effect. No acute hemorrhage. Vascular calcifications in the carotid siphons. Chronic sinusitis predominantly involving the ethmoid sinuses. Electronically Signed by Dwayne White MD 02/01/2020 02:33 P
[2020-02-01 12:43] LABS: BLOOD UREA NITROGEN 22 MG/DL (7-18); CALCIUM LEVEL 8.7 MG/DL (8.8-10.2); CARBON DIOXIDE LEVEL 26 MEQ/L (21-32); CHLORIDE LEVEL 101 MEQ/L (98-107); CPK CREATINE PHOSPHOKINASE 305 U/L (39-308); CREATININE FOR GFR 1.58 MG/DL (0.70-1.30); GLOMERULAR FILTRATION RATE 57.6 (>49); GLUCOSE, FASTING 118 MG/DL (70-100); MB/CK RELATIVE INDEX 2.62 (< OR =4); POTASSIUM SERUM 3.4 MEQ/L (3.5-5.1); SODIUM LEVEL 135 MEQ/L (136-145); TROPONIN I < 0.02 NG/ML (< 0.10)
[2020-02-01] MEDS ORDERED: HYDR12CA PO (13:17)
[2020-02-01] MEDS ORDERED: hydrALAZINE 20MG/ML 1ML VIAL (J0360 PER 20MG) IV ONE (13:30)
[2020-02-01 13:49] VITALS: BP 153/112
[2020-02-01] MEDS ORDERED: KEPP1TAB PO (14:38)
[2020-02-01 14:45] VITALS: BP 112/78
--- NOTE | 2020-02-01 20:41 | ECGEPIP ---
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
== END 2020-02-01 15:14 | disposition home or self-care (01) ==
LOC: EDBD 10:47 → M ED 10:47
DX: R56.9 Unspecified convulsions (principal); I10 Essential (primary) hypertension; C34.01 Malignant neoplasm of right main bronchus; D61.810 Antineoplastic chemotherapy induced pancytopenia; I67.82 Cerebral ischemia; F43.10 Post-traumatic stress disorder, unspecified; M10.9 Gout, unspecified; K21.9 Gastro-esophageal reflux disease without esophagitis; J45.909 Unspecified asthma, uncomplicated; G47.33 Obstructive sleep apnea (adult) (pediatric); Z88.2 Allergy status to sulfonamides; Z88.6 Allergy status to analgesic agent; Z88.8 Allergy status to other drugs, medicaments and biological substances; Z79.899 Other long term (current) drug therapy
CPT/HCPCS: 70450; 80048; 82550; 82553; 84484; 85025; 93005; 93041; 94760; 96374; 99285; J0360

== ENCOUNTER 2020-02-01 15:32 | Emergency (ER) | payer OTHER, MEDICARE ==
[~2020-02-01 15:32] MED LIST changes: +KEPP1TAB PO
[2020-02-01] MEDS ORDERED: levETIRAcetam INJection 1,000 MG in D5W 100 ML IV ONE (15:45)
[2020-02-01 17:12] VITALS: BP 137/96
== END 2020-02-01 17:29 | disposition home or self-care (01) ==
LOC: M ED 15:32
DX: R56.9 Unspecified convulsions (principal); I10 Essential (primary) hypertension; C34.01 Malignant neoplasm of right main bronchus; F43.10 Post-traumatic stress disorder, unspecified; M10.9 Gout, unspecified; J45.909 Unspecified asthma, uncomplicated; Z88.2 Allergy status to sulfonamides; Z88.6 Allergy status to analgesic agent; Z88.8 Allergy status to other drugs, medicaments and biological substances; Z79.899 Other long term (current) drug therapy
CPT/HCPCS: 96365; 99284; J1953

== ENCOUNTER → 2020-02-14 | Outpatient (CLI) | payer MEDICARE, OTHER ==
[~2020-02-14] MED LIST changes: +GASTROGRAFIN SOLUTION 30ML (Q9963) As Ordered ONE; +ISOVUE-370 76% 100ML VIAL As Ordered ONE
--- NOTE | 2020-02-14 14:48 | REP ---
CT CHEST WITH IV CONTRAST: TECHNIQUE: Axial contrast enhanced images from the thoracic inlet to the upper abdomen using 100 mL Isovue-370 intravenous contrast material with multiplanar reformations. COMPARISON: 01/20/2020 and 11/23/2019. Pleural and parenchymal fibrosis on the right is stable. Small amount of inferior right pleural fluid is unchanged. There is a small amount of right pericardial fluid also unchanged. There is stable soft tissue density in the right hilar region and infrahilar region with adjacent surgical sutures. No new mass is seen. There may be mild thickening of the esophagus. This could represent postradiation change. No new finding is seen in the left lung. The heart is not enlarged. There are degenerative changes of the spine without definite bone lesion. IMPRESSION: There appear to be stable postsurgical and postradiation changes on the right as discussed in detail above. There is a small amount of right pleural fluid inferiorly. No new parenchymal or mediastinal mass and no change since the prior study of 11/23/2019. Electronically Signed by Dwayne White MD 02/14/2020 02:58 P
--- NOTE | 2020-02-14 14:57 | REP ---
CT ABDOMEN AND PELVIS WITH ORAL AND IV CONTRAST: TECHNIQUE: Axial contrast enhanced images from the lung bases to the pubic symphysis using 100 mL Isovue-370 intravenous contrast material with multiplanar reformations. COMPARISON: 03/10/2019 Liver, spleen, adrenals, and pancreas are unchanged in appearance with no new mass. Tiny calcifications are again seen in the pancreatic head. Small cysts are seen in each kidney with no hydronephrosis. There is no abdominal aortic aneurysm. No adenopathy is seen. There is no free air or free fluid. There is no bowel wall thickening. The appendix is normal. No pelvic mass is seen. Prostate is mildly enlarged. Multiple subcentimeter iliac lymph nodes are present as seen on prior studies. There is an external iliac lymph node on the left, which is upper limits of normal in size, 1 cm in short axis dimension. No definite bone lesion is seen. There are degenerative changes of the spine. 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 This is unchanged since the prior CT of 2005. IMPRESSION: No change since the prior study of 03/10/2019. No evidence of abdominal or pelvic mass or adenopathy. Electronically Signed by Dwayne White MD 02/14/2020 02:59 P
== END ==
LOC: M RAD 11:30
PROVIDERS: ATTEND Internal Medicine Medical Oncology
DX: C34.01 Malignant neoplasm of right main bronchus (principal); J84.10 Pulmonary fibrosis, unspecified; J90 Pleural effusion, not elsewhere classified; N28.1 Cyst of kidney, acquired; K86.89 Other specified diseases of pancreas
CPT/HCPCS: 71260; 74177; Q9963; Q9967

== ENCOUNTER → 2020-02-16 | Outpatient (CLI) | payer MEDICARE ==
[~2020-02-16] MED LIST changes: -GASTROGRAFIN SOLUTION 30ML (Q9963) As Ordered ONE; -ISOVUE-370 76% 100ML VIAL As Ordered ONE; +PROHANCE 279.3MG/ML 15ML VIAL As Ordered ONE; +PROHANCE 279.3MG/ML 5ML VIAL As Ordered ONE
--- NOTE | 2020-02-16 14:16 | REP ---
MRI BRAIN WITHOUT AND WITH IV GADOLINIUM: HISTORY: Non-small cell lung carcinoma. Seizure. Comparison head CT study February 01, 2020. Comparison MRI study of the brain is from July 04, 2019. The gadolinium enhancement dose is 20 mL of intravenous ProHance. TECHNIQUE: Axial and sagittal imaging planes are utilized for T1- and T2-weighted scans. Sequences include spin-echo, fast spin echo, FLAIR, and diffusion weighted sequences. MRI FINDINGS: Bony calvarium is intact. There is extensive Polysinusitis involving the maxillary, ethmoid, sphenoid, and frontal sinuses bilaterally. There are some scattered mastoid air cells which show fluid signal intensity on T2-weighted scans as well. Craniocervical junction and upper cervical cord are normal in appearance. There is no evidence of intra-axial or extra-axial mass lesion. Postcontrast images show enhancement in normal vasculature. No abnormal intracranial contrast enhancement is seen. No intraorbital abnormality is seen. Diffusion weighted scans show no evidence of restricted diffusion to suggest acute ischemia. IMPRESSION: Persistent Polysinusitis changes. No evidence of intracranial metastasis or other acute intracranial abnormality. Electronically Signed by Peter Ramsey MD 02/16/2020 04:16 P
== END ==
LOC: M RAD 10:25
PROVIDERS: ATTEND Internal Medicine Medical Oncology
DX: C34.90 Malignant neoplasm of unspecified part of unspecified bronchus or lung (principal); R56.9 Unspecified convulsions
CPT/HCPCS: 70553; A9576

== ENCOUNTER 2020-02-24 03:49 | Emergency (ER) | payer MEDICARE, OTHER ==
[~2020-02-24] VITALS: Ht 190.5 cm; Wt 102.3 kg
[~2020-02-24 03:49] MED LIST changes: -PROHANCE 279.3MG/ML 15ML VIAL As Ordered ONE; -PROHANCE 279.3MG/ML 5ML VIAL As Ordered ONE
[2020-02-24] MEDS ORDERED: FUROSEMIDE 40MG/4ML VIAL (J1940) IV ONE (04:15)
--- NOTE | 2020-02-24 04:53 | REPVR ---
PROCEDURE INFORMATION: Exam: US Duplex Lower Extremity Veins, Bilateral Exam date and time: 02/24/2020 4:24 AM Age: 64 years old Clinical indication: Pain; Leg, upper and leg, lower; Bilateral; Additional info: B/l le swelling, HX of CA TECHNIQUE: Imaging protocol: Real-time duplex ultrasound of the extremities with 2-D andre scale, color Doppler flow and spectral waveform analysis with image documentation. Complete exam focused on the bilateral lower extremity veins. COMPARISON: US Duplex, Ext LOWER veins, bilat 01/20/2020 7:22 AM FINDINGS: Right deep veins: Unremarkable. The common femoral, femoral, proximal profunda femoral and popliteal veins are patent without thrombus. Normal Doppler waveforms. Normal compressibility and/or augmentation response. Right superficial veins: Saphenofemoral junction is patent without thrombus. Left deep veins: Unremarkable. The common femoral, femoral, proximal profunda femoral and popliteal veins are patent without thrombus. Normal Doppler waveforms. Normal compressibility and/or augmentation response. Left superficial veins: Saphenofemoral junction is patent without thrombus. Soft tissues: There is again a Valle's cyst in the left popliteal fossa measuring approximately 2.9 x 3.9 x 0.9 cm. Edema is noted within the soft tissues at the level of the popliteal veins bilaterally. IMPRESSION: No evidence of deep venous thrombosis bilaterally. Soft tissue edema bilaterally. Electronically signed by: Siobhan Adrian On 02/24/2020 04:53:23 AM
[2020-02-24 04:59] LABS: BASO % 0.4 % (0.0-1.0); EOS # 0.9 10^3/uL (0.0-0.5); EOS % 10.5 % (0.0-3.0); HEMATOCRIT 30.9 % (42.0-52.0); HEMOGLOBIN 10.6 g/dl (13.5-17.5); LYMPH # 0.6 10^3/uL (1.5-5.0); MEAN CORPUSCULAR HEMOGLOBIN 31.5 pg (27.0-33.0); MEAN CORPUSCULAR HGB CONC 34.3 g/dl (32.0-36.5); MEAN CORPUSCULAR VOLUME 91.7 fl (80.0-96.0); MONO # 0.4 10^3/uL (0.0-0.8); MONO % 5.2 % (0.0-5.0); NEUTROPHILS # 6.4 10^3/uL (1.5-8.5); NEUTROPHILS % 76.7 % (36.0-66.0); PLATELET COUNT, AUTOMATED 237 10^3/uL (150-450); RED BLOOD COUNT 3.37 10^6/uL (4.30-6.10); WHITE BLOOD COUNT 8.3 10^3/uL (4.0-10.0)
[2020-02-24 05:06] LABS: BLOOD UREA NITROGEN 14 MG/DL (7-18); CARBON DIOXIDE LEVEL 24 MEQ/L (21-32); CHLORIDE LEVEL 105 MEQ/L (98-107); CREATININE FOR GFR 1.15 MG/DL (0.70-1.30); GLOMERULAR FILTRATION RATE > 60.0 (>49); GLUCOSE, FASTING 98 MG/DL (70-100); NT-PRO BNP 178 PG/ML (<125); POTASSIUM SERUM 3.9 MEQ/L (3.5-5.1); SODIUM LEVEL 138 MEQ/L (136-145)
[2020-02-24] MEDS ORDERED: LASI40TA9 PO (05:24)
[2020-02-24 05:40] VITALS: BP 135/95
== END 2020-02-24 05:57 | disposition home or self-care (01) ==
LOC: M ED 03:49
DX: R60.0 Localized edema (principal); M79.661 Pain in right lower leg; M79.662 Pain in left lower leg; I10 Essential (primary) hypertension; M10.9 Gout, unspecified; J44.9 Chronic obstructive pulmonary disease, unspecified; Z87.891 Personal history of nicotine dependence; Z88.8 Allergy status to other drugs, medicaments and biological substances; Z88.2 Allergy status to sulfonamides; Z88.1 Allergy status to other antibiotic agents; Z79.899 Other long term (current) drug therapy; Z79.82 Long term (current) use of aspirin
CPT/HCPCS: 80048; 83880; 85025; 93970; 96374; 99284; J1940

== ENCOUNTER 2020-04-03 12:11 | Emergency (ER) | payer OTHER ==
[~2020-04-03] VITALS: Ht 190.5 cm; Wt 103.6 kg
[~2020-04-03 12:11] MED LIST changes: +FURO20TA2 PO
[2020-04-03] MEDS ORDERED: LIDOCAINE 2% MDV 20ML VIAL SC ONE (13:00)
--- NOTE | 2020-04-03 13:53 | REP ---
CT BRAIN AND CT FACIAL BONES: 04/03/2020 INDICATION: Head/face trauma. TECHNIQUE: Unenhanced axial CT images of the brain and facial bones were performed with coronal reconstructions of the facial bones and brain provided. Sagittal reconstructions of the facial bones were additionally provided. COMPARISON: MRI brain dated 02/16/[address] brain dated 02/01/2020. FINDINGS: There is no acute intracranial hemorrhage, acute cortical infarction, mass effect, hydrocephalus, or acute calvarial fracture. Mild periosteal mucosal thickening is present within the bilateral postoperative maxillary sinuses. No air-fluid levels are present within the paranasal sinuses. There is periosteal mucosal thickening additionally noted within the left frontal and bilateral ethmoid sinuses. The mastoid air cells are clear. There is no acute facial bone fracture, subluxation, or dislocation. The ocular and intraorbital structures are intact. IMPRESSION: No acute intracranial process. No acute facial bone fracture. Chronic paranasal sinus mucosal disease. Electronically Signed by Ed Gonzalez DO 04/05/2020 08:38 A
[2020-04-03] MEDS ORDERED: NORC1TAB7 PO (14:28)
[2020-04-03 14:35] VITALS: BP 104/67
[2020-04-08] MEDS ORDERED: PRED50TA PO (10:51)
[2020-04-08] MEDS ORDERED: OMEP10CASR PO (10:51)
== END 2020-04-03 14:52 | disposition home or self-care (01) ==
LOC: EDBD 12:11 → M ED 12:11
DX: S01.81XA Laceration without foreign body of other part of head, initial encounter (principal); W10.8XXA Fall (on) (from) other stairs and steps, initial encounter; C34.90 Malignant neoplasm of unspecified part of unspecified bronchus or lung; Z79.51 Long term (current) use of inhaled steroids; Z79.82 Long term (current) use of aspirin; Z79.899 Other long term (current) drug therapy; Z88.1 Allergy status to other antibiotic agents; Z88.6 Allergy status to analgesic agent; Z88.8 Allergy status to other drugs, medicaments and biological substances; Y92.9 Unspecified place or not applicable; Y93.9 Activity, unspecified; Y99.9 Unspecified external cause status

== ENCOUNTER 2020-04-10 11:11 | Emergency (ER) | payer OTHER ==
[~2020-04-10] VITALS: Ht 190.5 cm; Wt 100.0 kg
[~2020-04-10 11:11] MED LIST changes: +NORC1TAB7 PO; +OMEP10CASR PO; +PRED50TA PO
[2020-04-10 11:12] VITALS: BP 151/81
== END 2020-04-10 12:48 | disposition home or self-care (01) ==
LOC: M ED 11:11
DX: Z48.02 Encounter for removal of sutures (principal); Z88.8 Allergy status to other drugs, medicaments and biological substances; Z88.2 Allergy status to sulfonamides; Z88.6 Allergy status to analgesic agent; Z79.899 Other long term (current) drug therapy

== ENCOUNTER → 2020-05-08 | Outpatient (CLI) | payer OTHER ==
[~2020-05-08] MED LIST changes: +AZEL0.1S; +D31000TA2 PO; -DORZ2SOL5 OP; +DORZ2SOL5 OU; +DOXY100T PO; +FLUTISP; +FURO40TA2 PO; +GASTROGRAFIN SOLUTION 30ML (Q9963) As Ordered ONE; +HEPA1INJ78 IV; +ISOVUE-370 76% 100ML VIAL As Ordered ONE; +LEVA1TAB2 PO; +LEVE500XR PO; +MAGN400T3 PO; +METH125VL IV; +METO50TA7 PO; +METR-265 PO; +MIRA1POW3 PO; +PEG1POW PO; +PLAV1TAB2 PO; +POTA20TA6 PO; +PRED20TA PO; -VITAD1000T PO; +ZYLO300T6 PO; +[UNRECOGNIZED DRUG - CODE] TEETH
--- NOTE | 2020-05-08 12:47 | REP ---
Clinical: History of lung cancer. Follow-up. Comparison: 02/14/2020. Technique: Axial contrast enhanced images from the thoracic inlet to the upper abdomen (followed by CT of the abdomen and pelvis) with coronal and sagittal re-formations using 100 ml Isovue 370 intravenous contrast material. Findings: The patient appears to be status post radiation therapy partial right lobectomy. Changes involving the right hemithorax and primarily in the right medial / perihilar region are consistent with postsurgical and postradiation type changes and appear relatively similar to prior examinations. No obvious acute consolidation, new nodule or mass lesion identified. Left hemithorax is well-aerated and clear. No evidence for effusion or pneumothorax. No obvious adenopathy. The mediastinum demonstrates stable appearance to the thoracic aorta, pulmonary vasculature and heart/pericardium. No pericardial effusion. Surrounding musculoskeletal structures are stable. [id number] identified with tip in the SVC/right atrium. Impression: Postsurgical and postradiation type changes involving the right hemithorax remain relatively stable. No new obvious acute process to suggest recurrence or metastatic disease noted. Electronically Signed by Mirza Sommer MD 05/08/2020 12:39 P
--- NOTE | 2020-05-08 13:38 | REP ---
CT ABDOMEN AND PELVIS WITH IV AND ORAL CONTRAST: Dual-phase postcontrast acquisition. HISTORY: Lung carcinoma. Comparison CT study abdomen and pelvis February 14, 2020. CT CONTRAST DOSE: 75 mL of intravenous Isovue [address] FINDINGS: There is mild chronic pleuroparenchymal thickening in the right pleural angle unchanged. There is a small quantity of pericardial fluid again noted also unchanged. No focal hepatic or splenic lesion is seen. Normal adrenal glands are present bilaterally. There is stippled calcifications in the head of the pancreas posteriorly unchanged consistent with chronic pancreatitis. The kidneys enhance symmetrically. There are bilateral renal cortical cysts. These are unchanged. No retroperitoneal mass or adenopathy is seen. Small and large intestinal bowel loops are normal in the abdomen and pelvis. Urinary bladder is unremarkable. Seminal vesicles and prostate appear intact. No pelvic mass or adenopathy is seen. No bony destructive lesion is appreciated. Avascular necrosis changes are again noted in the femoral heads bilaterally. IMPRESSION: No acute abdominal or pelvic abnormality. No mass or adenopathy seen. Electronically Signed by Peter Ramsey MD 05/08/2020 01:40 P
== END ==
LOC: M RAD 09:33
PROVIDERS: ATTEND Internal Medicine Medical Oncology
DX: Z85.118 Personal history of other malignant neoplasm of bronchus and lung (principal)
CPT/HCPCS: 71260; 74177; Q9963; Q9967

== ENCOUNTER 2020-05-16 12:05 | Day surgery (SDC) | payer OTHER ==
[~2020-05-16] VITALS: Ht 190.5 cm; Wt 99.8 kg
[~2020-05-16 12:05] MED LIST changes: -DOXY100T PO; -FLUTISP; -FURO40TA2 PO; -GASTROGRAFIN SOLUTION 30ML (Q9963) As Ordered ONE; -HEPA1INJ78 IV; -ISOVUE-370 76% 100ML VIAL As Ordered ONE; -LEVA1TAB2 PO; -LEVE500XR PO; +LIDOCAINE 2% 100MG/5ML SDV (FOR ANES.) ONE; -MAGN400T3 PO; -METH125VL IV; -METO50TA7 PO; -METR-265 PO; -MIRA1POW3 PO; -PEG1POW PO; -PLAV1TAB2 PO; -POTA20TA6 PO; -PRED20TA PO; -ZYLO300T6 PO; -[UNRECOGNIZED DRUG - CODE] TEETH; +propofoL 200 MG/20 ML VIAL ONE
[2020-05-16] MEDS ORDERED: propofoL 200 MG/20 ML VIAL ONE (12:54)
--- NOTE | 2020-06-26 11:31 | ROOR ---
Patient Name: Donald Tee Procedure Date: 05/16/2020 11:11 AM Date of : 1955 Age: 64 Room: [facility] Gender: Male Note Status: Finalized Procedure: Colonoscopy Indications: High risk colon cancer surveillance: Personal history of colonic polyps Providers: Yong Ruffin Jr, MD Referring MD: Yong Ruffin Jr, MD, [facility], Admin. Requesting Provider: Medicines: Propofol per Anesthesia Complications: No immediate complications. Procedure: Pre-Anesthesia Assessment: - Prior to the procedure, a History and Physical was performed, and patient medications and allergies were reviewed. The patient is competent. The risks and benefits of the procedure and the sedation options and risks were discussed with the patient. All questions were answered and informed consent was obtained. Patient identification and proposed procedure were verified by the physician and the nurse in the pre-procedure area and in the procedure room. Mental Status Examination: alert and oriented. Airway Examination: normal oropharyngeal airway and neck mobility. Respiratory Examination: clear to auscultation. CV Examination: normal. ASA Grade Assessment: II - A patient with mild systemic disease. After reviewing the risks and benefits, the patient was deemed in satisfactory condition to undergo the procedure. The anesthesia plan was to use moderate sedation / analgesia (conscious sedation). Immediately prior to administration of medications, the patient was re-assessed for adequacy to receive sedatives. The heart rate, respiratory rate, oxygen saturations, blood pressure, adequacy of pulmonary ventilation, and response to care were monitored throughout the procedure. The physical status of the patient was re-assessed after the procedure. The Colonoscope was introduced through the anus and advanced to the cecum, identified by appendiceal orifice and ileocecal valve. The colonoscopy was performed without difficulty. The patient tolerated the procedure well. The quality of the bowel preparation was adequate. Findings: The rectum, recto-sigmoid colon, cecum, appendiceal orifice and ileocecal valve appeared normal. Five polyps were found in the sigmoid colon, descending colon, transverse colon and ascending colon. The polyps were small in size. These polyps were removed with a hot snare. Resection was complete, but the polyp tissue was only partially retrieved. A small polyp was found in the descending colon transverse colon. The polyp was removed with a hot snare. Resection and retrieval were complete. Impression: - The rectum, recto-sigmoid colon, cecum, appendiceal orifice and ileocecal valve are normal. - Five small polyps in the sigmoid colon, in the descending colon, in the transverse colon and in the ascending colon, removed with a hot snare. Complete resection. Partial retrieval. - One small polyp in the descending colon in the transverse colon, removed with a hot snare. Resected and retrieved. Recommendation: - Discharge patient to home (ambulatory). - Repeat colonoscopy in 3 - 5 years for surveillance based on pathology results. Yong Ruffin MD Yogn Ruffin Jr, MD 05/16/2020 1:05:46 PM Electronically signed by Yong Ruffin Jr, MD Number of Addenda: 0 Note Initiated On: 05/16/2020 11:11 AM Estimated Blood Loss: Estimated blood loss: none.
[2020-08-21] MEDS ORDERED: FLUT1BLS2 INH (16:07)
== END 2020-05-16 14:20 | disposition home or self-care (01) ==
LOC: M OPP 12:05
PROVIDERS: ATTEND Surgery
DX: Z12.11 Encounter for screening for malignant neoplasm of colon (principal); Z86.010 Personal history of colon polyps; K63.5 Polyp of colon; Z79.82 Long term (current) use of aspirin; Z79.899 Other long term (current) drug therapy; Z88.2 Allergy status to sulfonamides; Z88.8 Allergy status to other drugs, medicaments and biological substances; Z87.891 Personal history of nicotine dependence

== ENCOUNTER 2020-06-16 17:22 | Inpatient (IN) | payer OTHER ==
[~2020-06-16] VITALS: Ht 190.5 cm; Wt 95.1 kg
[~2020-06-16 17:22] MED LIST changes: -LIDOCAINE 2% 100MG/5ML SDV (FOR ANES.) ONE; -propofoL 200 MG/20 ML VIAL ONE
[2020-06-16] MEDS: COMBIVENT RESPIMAT 100-20MCG INHALER 4GM INH SCH ×4 (17:40→18:30)
[2020-06-16 17:51] LABS: BASO % 0.3 % (0.0-1.0); EOS # 2.7 10^3/uL (0.0-0.5); HEMATOCRIT 32.4 % (42.0-52.0); HEMOGLOBIN 10.8 g/dl (13.5-17.5); LYMPH # 0.9 10^3/uL (1.5-5.0); LYMPH % 8.3 % (24.0-44.0); MEAN CORPUSCULAR HEMOGLOBIN 31.5 pg (27.0-33.0); MEAN CORPUSCULAR HGB CONC 33.3 g/dl (32.0-36.5); MEAN CORPUSCULAR VOLUME 94.5 fl (80.0-96.0); MONO # 0.3 10^3/uL (0.0-0.8); MONO % 3.1 % (0.0-5.0); NEUTROPHILS # 6.8 10^3/uL (1.5-8.5); NEUTROPHILS % 62.7 % (36.0-66.0); PLATELET COUNT, AUTOMATED 358 10^3/uL (150-450); RED BLOOD COUNT 3.43 10^6/uL (4.30-6.10); WHITE BLOOD COUNT 10.9 10^3/uL (4.0-10.0)
[2020-06-16 18:01] LABS: INR 1.09; PROTHROMBIN TIME 14.3 SECONDS (11.8-14.0)
[2020-06-16 18:09] LABS: EOS % 25.2 % (0.0-3.0)
[2020-06-16 18:22] LABS: ALBUMIN 2.9 GM/DL (3.2-5.2); ALT/SGPT 14 U/L (12-78); BILIRUBIN,DIRECT 0.2 MG/DL (0.0-0.2); BILIRUBIN,TOTAL 0.5 MG/DL (0.2-1.0); BLOOD UREA NITROGEN 22 MG/DL (7-18); CALCIUM LEVEL 8.2 MG/DL (8.8-10.2); CARBON DIOXIDE LEVEL 28 MEQ/L (21-32); CHLORIDE LEVEL 103 MEQ/L (98-107); CK-MB VALUE MASS 1.7 NG/ML (<3.6); CPK CREATINE PHOSPHOKINASE 55 U/L (39-308); CREATININE FOR GFR 1.51 MG/DL (0.70-1.30); GLOMERULAR FILTRATION RATE > 60.0 (>49); GLUCOSE, FASTING 98 MG/DL (70-100); MB/CK RELATIVE INDEX 3.09 (< OR =4); NT-PRO BNP 303 PG/ML (<125); POTASSIUM SERUM 3.5 MEQ/L (3.5-5.1); SODIUM LEVEL 140 MEQ/L (136-145); THYROID STIMULATING HORMONE 0.998 uIU/ML (0.358-3.740); THYROXINE (T4) 5.6 UG/DL (4.5-12.0); TOTAL PROTEIN 6.2 GM/DL (6.4-8.2); TROPONIN I 0.03 NG/ML (< 0.10)
[2020-06-16] MEDS ORDERED: NS 500 ML IV ONE (18:45)
[2020-06-16] MEDS ORDERED: ISOVUE-370 76% 100ML VIAL As Ordered ONE (18:50)
--- NOTE | 2020-06-16 19:36 | REPVR ---
PROCEDURE INFORMATION: Exam: CT Angiography Chest With Contrast Exam date and time: 06/16/2020 7:06 PM Age: 64 years old Clinical indication: Lung cancer/ hypoxia TECHNIQUE: Imaging protocol: Computed tomographic angiography of the chest with intravenous contrast. 3D rendering (Not supervised by radiologist): MIP and/or 3D reconstructed images were created by the technologist. Radiation optimization: All CT scans at this facility use at least one of these dose optimization techniques: automated exposure control; mA and/or kV adjustment per patient size (includes targeted exams where dose is matched to clinical indication); or iterative reconstruction. Contrast material: ISOVUE 370; Contrast volume: 75 ml; Contrast route: INTRAVENOUS (IV); COMPARISON: CT Chest with contrast 05/08/2020 11:51 AM FINDINGS: Pulmonary arteries: No pulmonary embolism. Aorta: The thoracic aorta is intact and patent. There is no thoracic aortic aneurysm, pseudoaneurysm, penetrating atherosclerotic ulcer, intramural hematoma, or dissection. There are mild atherosclerotic calcifications. Great vessels off aortic arch: The brachiocephalic artery, imaged proximal portions of the common carotid arteries, imaged proximal portions of the vertebral arteries, and subclavian arteries are intact. No stenosis or occlusion of these vessels is noted. Tracheobronchial tree: There is mucous plugging in the right mainstem bronchus. The trachea is patent. Lungs: Postoperative changes are noted from a partial right lower lobectomy as can be seen in the prior CT chest on 05/08/2020. There is paramediastinal fibrosis in the right upper lobe that is stable compared to the prior CT chest on 05/08/2020. There is a 5 mm solid pulmonary nodule in the right upper lobe (image 55 of the axial series 4052), which is unchanged compared to the prior CT chest on 05/08/2020. There is mucous plugging and atelectasis in the right middle lobe. Mild paraseptal emphysematous changes are present in the right upper lobe. No lung consolidation, spiculated mass, cavitation, or ground-glass opacification is noted. Pleural space: There are trace bilateral pleural effusions. No pneumothorax. No pleural plaques. Heart: No cardiomegaly or pericardial effusion. Mediastinal space: No mediastinal mass, fluid collection, or pneumomediastinum. There is suture material in the right hilar region. Lymph nodes: There are subcentimeter mediastinal lymph nodes. However, no abnormally enlarged lymph nodes measuring greater than 1 cm in short axis are noted. Diaphragm: The right hemidiaphragm is elevated, which is unchanged compared to the prior CT chest on 05/08/2020. Gallbladder and bile ducts: The gallbladder is distended. No calcified gallstones are seen. No gallbladder wall thickening, pericholecystic fluid, or pericholecystic inflammatory changes are identified. No dilation of the bile ducts is noted. No calcified stones are seen in the common bile duct. Spleen: Unremarkable. No splenomegaly is noted. Bones/joints: There is no fracture or dislocation. No suspicious osteolytic or osteoblastic lesion. There are endplate spurs in the thoracic spine. Soft tissues: There is mild bilateral gynecomastia that is similar in appearance compared to the prior CT chest on 05/08/2020. IMPRESSION: 1. No pulmonary embolism. 2. 5 mm solid pulmonary nodule in the right upper lobe, which is unchanged compared to the prior CT chest on 05/08/2020. Fleischner follow up recommendations for incidental nodules are not indicated. Follow up per patient's medical condition. 3. Trace bilateral pleural effusions. 4. Mucous plugging in the right mainstem bronchus and the right middle lobe bronchus with atelectasis in the right middle lobe. 5. Post treatment changes from a partial right lower lobectomy and radiation therapy. Electronically signed by: Ubaldo Marcos On 06/16/2020 19:35:47 PM
[2020-06-16] MEDS ORDERED: METO50TA7 PO (21:04)
[2020-06-16] MEDS ORDERED: FLUTISP (21:04)
[2020-06-16] MEDS ORDERED: LEVE500XR PO (21:04)
[2020-06-16] MEDS ORDERED: POTA20TA6 PO (21:04)
[2020-06-16] MEDS ORDERED: FURO40TA2 PO (21:04)
[2020-06-16] MEDS ORDERED: ZYLO300T6 PO (21:06)
[2020-06-16] MEDS ORDERED: NS 1,000 ML IV SCH (21:30)
[2020-06-16] MEDS ORDERED: MIRALAX *UNIT DOSE* 17GM PACKET PO PRN (21:30)
[2020-06-16 22:15] VITALS: BP 140/84
[2020-06-16] MEDS ORDERED: PEG1POW PO (22:25)
[2020-06-16] MEDS: methylPREDNISolone 125MG 2ML VIAL IV SCH (23:28)
[2020-06-16] MEDS: METOPROLOL TART 50 MG TAB PO SCH (23:28)
[2020-06-16] MEDS: DOXEPIN 25 MG CAP PO SCH (23:29)
[2020-06-16] MEDS: OMEPRAZOLE 20 MG CAP PO SCH (23:29)
[2020-06-16] MEDS: levETIRAcetam **XR** 500 MG TABLET PO SCH (23:29)
[2020-06-16] MEDS: cloNIDine 0.1 MG TAB PO SCH (23:29)
[2020-06-16] MEDS: COSOPT OCUMETER PLUS 10ML (DORZOLAMIDE/TIMOLOL) OU SCH (23:30)
[2020-06-16] MEDS ORDERED: NITROGLYCERIN 0.4 MG SUBL TABLET SL PRN (23:30)
[2020-06-17] MEDS: IPRATROPIUM 0.5MG/ALBUTEROL 2.5MG INH SOL UD 3ML (DUONEB) NEB SCH ×4 (02:13→19:14)
[2020-06-17 05:13] VITALS: O2SAT 96
[2020-06-17 05:47] LABS: BASO % 0.2 % (0.0-1.0); EOS # 0.1 10^3/uL (0.0-0.5); EOS % 3.1 % (0.0-3.0); HEMATOCRIT 30.1 % (42.0-52.0); HEMOGLOBIN 10.1 g/dl (13.5-17.5); LYMPH # 0.5 10^3/uL (1.5-5.0); LYMPH % 12.9 % (24.0-44.0); MEAN CORPUSCULAR HEMOGLOBIN 31.2 pg (27.0-33.0); MEAN CORPUSCULAR HGB CONC 33.6 g/dl (32.0-36.5); MEAN CORPUSCULAR VOLUME 92.9 fl (80.0-96.0); NEUTROPHILS # 3.4 10^3/uL (1.5-8.5); NEUTROPHILS % 82.3 % (36.0-66.0); PLATELET COUNT, AUTOMATED 345 10^3/uL (150-450); RED BLOOD COUNT 3.24 10^6/uL (4.30-6.10); WHITE BLOOD COUNT 4.2 10^3/uL (4.0-10.0)
[2020-06-17 06:00] VITALS: BP 126/77
[2020-06-17] MEDS: methylPREDNISolone 125MG 2ML VIAL IV SCH (06:07)
[2020-06-17 06:15] LABS: ALBUMIN 2.6 GM/DL (3.2-5.2); ALT/SGPT 14 U/L (12-78); BILIRUBIN,TOTAL 0.5 MG/DL (0.2-1.0); BLOOD UREA NITROGEN 22 MG/DL (7-18); CALCIUM LEVEL 7.9 MG/DL (8.8-10.2); CARBON DIOXIDE LEVEL 25 MEQ/L (21-32); CHLORIDE LEVEL 104 MEQ/L (98-107); GLOMERULAR FILTRATION RATE > 60.0 (>49); GLUCOSE, FASTING 143 MG/DL (70-100); POTASSIUM SERUM 3.1 MEQ/L (3.5-5.1); SODIUM LEVEL 137 MEQ/L (136-145); TOTAL PROTEIN 6.2 GM/DL (6.4-8.2); TROPONIN I < 0.02 NG/ML (< 0.10)
[2020-06-17] MEDS ORDERED: predniSONE 20 MG TAB PO SCH (09:00)
[2020-06-17] MEDS ORDERED: PANTOPRAZOLE 40MG TAB (PROTONIX) PO SCH (09:00)
[2020-06-17] MEDS: DOXEPIN 25 MG CAP PO SCH ×2 (09:13→21:35)
[2020-06-17] MEDS: TOBRAMYCIN 0.3% OPHTH SOLN 5 ML OU SCH (09:13)
[2020-06-17] MEDS: OMEPRAZOLE 20 MG CAP PO SCH ×2 (09:13→21:36)
[2020-06-17] MEDS: FLUTICASONE PROP 0.05% NASAL SPRAY 16 GM (FLONASE) SCH (09:13)
[2020-06-17] MEDS: FOLIC ACID 1 MG TAB PO SCH (09:14)
[2020-06-17] MEDS: METOPROLOL TART 50 MG TAB PO SCH ×2 (09:14→21:36)
[2020-06-17] MEDS: cloNIDine 0.1 MG TAB PO SCH ×2 (09:14→21:35)
[2020-06-17] MEDS: COSOPT OCUMETER PLUS 10ML (DORZOLAMIDE/TIMOLOL) OU SCH ×2 (09:15→21:34)
[2020-06-17] MEDS: POTASSIUM CHLORIDE 10% LIQ 20 MEQ/15 ML UDC PO SCH ×2 (09:15→21:34)
[2020-06-17] MEDS: allopurinoL 300 MG TAB PO SCH (09:15)
[2020-06-17] MEDS: clonazePAM 0.5 MG TAB PO SCH ×2 (09:15→21:35)
[2020-06-17] MEDS: ASPIRIN 81 MG ENTERIC TAB PO SCH (09:15)
[2020-06-17] MEDS: CETIRIZINE (ZyrTEC) 10 MG TAB PO SCH (09:15)
[2020-06-17] MEDS: ALBUTEROL SULFATE 2.5 MG/0.5 ML INH NEB SOLN NEB PRN ×3 (10:39→17:07)
[2020-06-17] MEDS ORDERED: FUROSEMIDE 40MG/4ML VIAL (J1940) IV ONE (13:30)
[2020-06-17] MEDS ORDERED: ALBUTEROL 90 MCG/ACT 8GM HFA INHALER INH PRN (13:45)
[2020-06-17 14:00] VITALS: BP 146/92
--- NOTE | 2020-06-17 14:54 | IPNPDOC ---
Text Note Date of Service The patient was seen on 06/17/20. NOTE S: Upon interview, patient's SOB has significantly improved from 10/10 (worst being 10) to 3-4/10 after treatment with duo-neb. His chest pain has resolved. He notes chronic bilateral foot pain since his chemotherapy in 01/2020. He denies N/V/D, abd pain, bladder or bowel symptoms. Chronic cough unchanged in severity but he reports producing grayish sputum. CONSTITUTIONAL: Denies chills, fever, loss of appetite HEENT: Denies headaches and dizziness. CARDIOVASCULAR: Denies chest pain, palpitations RESPIRATORY: Denies wheezing, but noted SOB and chronic unchanged cough with grayish sputum. GASTROINTESTINAL: Denies nausea, vomiting, abdominal pain, diarrhea, constipation. GENITAOURINARY: Denies dysuria, urinary frequency or retention. MUSCULOSKELETAL: Denies weakness. NEUROLOGICAL: Denies focal weakness, but noted bilateral foot pain, swelling and numbness since chemotherapy in 01/2020. HEMATOLOGICAL: Denies bruising, excessive bleeding, petechiae O: VITAL SIGNS: See below GENERAL APPEARANCE: 64 y/o M patient receiving duo-nebs at time of encounter, in NAD and appears stated age. HEENT: Normocephalic and atraumatic, anicteric sclera, pharynx normal, nares patent. NECK: Supple. LUNGS: Diminished breath sounds in bilateral lower lobes with faint crackles at bilateral lung bases. No wheezes or rhonchi. CARDIOVASCULAR: Regular rate and rhythm, normal S1 & S2 without gallops, m urmurs, rubs ABDOMEN: Soft, non-tender, non-distended. No masses. EXTREMITIES: 2+ pitting edema in bilateral lower extremities up to the knees. 1+ PT pulses bilaterally. SKIN: No rash, lesion MUSCULOSKELETAL: Lower extremities tender to palpation bilaterally without redness or warmth. NEUROLOGICAL: Normal speech. Diminished sensation in dosal foot bilaterally. Moving all 4 extremities without difficulty. PSYCHIATRIC: Normal mood and affect. Alert & oriented x3. Imaging: (06/16) CXR "Impression: Chronic changes. Subtle superimposed left basilar atelectasis and small effusion cannot be excluded." (06/16) CTA Chest with contrast "Impression: 1. No pulmonary embolism. 2. 5 mm solid pulmonary nodule in the right upper lobe, which is unchanged compared to the prior CT chest on 05/08/2020. [facility] follow up recommendations for incidental nodules are not indicated. Follow up per patient's medical condition. 3. Trace bilateral pleural effusions. 4. Mucous plugging in the right mainstem bronchus and the right middle lobe bronchus with atelectasis in the right middle lobe. 5. 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 P: #. SOB suspected 2/2 R-mainstem mucous plugging vs. post-obstructive pneumonia - CTA chest on 06/16 ruled out PE and revealed mucous plugging in the right mainstem bronchus and the right middle lobe bronchus with atelectasis in the right middle lobe. - Cont Chest PT with duo-nebs. Does not use oxygen at home. - Spoke with Dr. Srivastaav (pulmonology), no role for bronchoscopy at this time, given clinical stability of patient and possibility of further irritating lung tissue. In the event the patient clinically deteriorates or his status worsens, we should feel free to reach out. - BCx (x2) and sputum Cx pending - Start flagyl and Levaquin empirically for suspected post obstructive lobar PNA. - MRSA screen ordered and pending - COVID negative 06/16/2020 - d/c IVF, patient able to tolerate food and fluid - Pulmonary toilet: acapella, chest pt, IS, ezPAP - SpO2 98% on RA, titrate O2>92% #. Bilateral Lower extremities edema -Ordering echo -Prior echo from 01/22/2020, showing LVEF 65% with PA pressure upper limits of normal, and otherwise unremarkable findings. #. Hypokalemia - K at 3.1 today, repleted - Restarting home potassium supplementation #. Chest Pain - Resolved. - Trop negative x2 (0.03 & 0.02) - AM EKG showed first degree AV block at rate of 84 without acute changes #. Elevated creatinine - Baseline Creatinine 1.3-1.4. - Will continue to monitor #. HTN - Cont home metoprolol - Hold home HCTZ and lasix #. COPD - d/c solumedrol, start oral prednisone 40 PO - Cont incentive spirometry - albuterol inhaler and advair. #. Gout - Cont home dose allopurinol #. GERD - Cont home prilosec # PTSD - Cont clonidine, doxepin # Hx of Sz disorder - Cont Keppra DVT prophylaxis: heparin SQ VS,Fishbone, I+O VS, Fishbone, I+O Laboratory Tests 06/16/20 17:37 06/17/20 05:16 Vital Signs Date Time Temp Pulse Resp B/P (MAP) Pulse Ox O2 Delivery O2 Flow Rate FiO2 06/17/20 09:14 91 139/89 06/17/20 09:00 2.0 06/17/20 06:00 97.2 17 98 Room Air I&O- Last 24 Hours up to 6 AM 06/17/20 06:00 Intake Total 1640 ml Output Total 375 ml Balance 1265 ml GME ATTESTATION GME ATTESTATION My faculty preceptor for this patient encounter was physically present during the encounter and was fully available. All aspects of the patient interview, examination, medical decision making process, and medical care plan development were reviewed and approved by the faculty preceptor. The faculty preceptor is aware and concurs with the plan as stated in the body of this note and will attest to such by his/her cosignature. ATTENDING NOTE Patient was seen and examined by me personally with the residents and I agree with the above assessment and plan ELENA WHITLOCK OMS-3 Jun 17, 2020 14:54 RAMU HOWARD MD Jun 20, 2020 13:48
[2020-06-17] MEDS: predniSONE 20 MG TAB PO SCH (14:57)
[2020-06-17] MEDS: HEPARIN SOD (PORCINE) 5000UNITS/ML 1ML VIAL/SYRINGE SQ SCH ×2 (14:58→21:34)
[2020-06-17] MEDS: LevoFLOXacin IV 500 MG in IV 1 EA IV SCH (14:59)
[2020-06-17] MEDS ORDERED: POTASSIUM CHLORIDE 10 MEQ SR TABLET PO ONE (16:00)
[2020-06-17] MEDS: metroNIDAZOLE 500 MG in IV 1 EA IV SCH ×2 (16:08→22:19)
[2020-06-17] MEDS: ADVAIR HFA 230/21MCG INHALER INH SCH (19:14)
[2020-06-17] MEDS: LATANOPROST 0.005% OPHTH SOLN 2.5 ML OU SCH (21:34)
[2020-06-17] MEDS: levETIRAcetam **XR** 500 MG TABLET PO SCH (21:35)
[2020-06-17 22:00] VITALS: BP 130/82
[2020-06-17] MEDS: AZELASTINE 137MCG NASAL SPY 30 ML (ASTELIN) SCH (23:20)
[2020-06-18] MEDS: IPRATROPIUM 0.5MG/ALBUTEROL 2.5MG INH SOL UD 3ML (DUONEB) NEB SCH ×4 (01:17→20:00)
[2020-06-18 06:00] VITALS: BP 138/87
[2020-06-18] MEDS: HEPARIN SOD (PORCINE) 5000UNITS/ML 1ML VIAL/SYRINGE SQ SCH ×3 (06:15→20:45)
[2020-06-18] MEDS: metroNIDAZOLE 500 MG in IV 1 EA IV SCH ×3 (06:15→22:31)
[2020-06-18 06:25] LABS: EOS # 0.1 10^3/uL (0.0-0.5); EOS % 0.9 % (0.0-3.0); HEMATOCRIT 29.5 % (42.0-52.0); HEMOGLOBIN 9.9 g/dl (13.5-17.5); LYMPH # 0.6 10^3/uL (1.5-5.0); LYMPH % 9.3 % (24.0-44.0); MEAN CORPUSCULAR HEMOGLOBIN 31.2 pg (27.0-33.0); MEAN CORPUSCULAR HGB CONC 33.6 g/dl (32.0-36.5); MEAN CORPUSCULAR VOLUME 93.1 fl (80.0-96.0); MONO # 0.4 10^3/uL (0.0-0.8); MONO % 6.4 % (0.0-5.0); NEUTROPHILS # 5.7 10^3/uL (1.5-8.5); NEUTROPHILS % 82.8 % (36.0-66.0); PLATELET COUNT, AUTOMATED 367 10^3/uL (150-450); RED BLOOD COUNT 3.17 10^6/uL (4.30-6.10); WHITE BLOOD COUNT 6.9 10^3/uL (4.0-10.0)
[2020-06-18 06:54] LABS: ALBUMIN 2.6 GM/DL (3.2-5.2); ALT/SGPT 15 U/L (12-78); BILIRUBIN,TOTAL 0.4 MG/DL (0.2-1.0); BLOOD UREA NITROGEN 26 MG/DL (7-18); CALCIUM LEVEL 8.7 MG/DL (8.8-10.2); CARBON DIOXIDE LEVEL 25 MEQ/L (21-32); CHLORIDE LEVEL 110 MEQ/L (98-107); CREATININE FOR GFR 1.42 MG/DL (0.70-1.30); GLOMERULAR FILTRATION RATE > 60.0 (>49); GLUCOSE, FASTING 109 MG/DL (70-100); POTASSIUM SERUM 4.1 MEQ/L (3.5-5.1); SODIUM LEVEL 143 MEQ/L (136-145); TOTAL PROTEIN 5.7 GM/DL (6.4-8.2)
[2020-06-18] MEDS: ADVAIR HFA 230/21MCG INHALER INH SCH ×2 (07:37→20:30)
[2020-06-18] MEDS: SODIUM CHLORIDE HYPERTONIC 3% 15ML NEB SOL INH SCH ×4 (08:00→20:00)
[2020-06-18] MEDS: CETIRIZINE (ZyrTEC) 10 MG TAB PO SCH (08:28)
[2020-06-18] MEDS: predniSONE 20 MG TAB PO SCH (08:28)
[2020-06-18] MEDS: allopurinoL 300 MG TAB PO SCH (08:28)
[2020-06-18] MEDS: clonazePAM 0.5 MG TAB PO SCH ×2 (08:28→20:47)
[2020-06-18] MEDS: OMEPRAZOLE 20 MG CAP PO SCH ×2 (08:28→20:46)
[2020-06-18] MEDS: ASPIRIN 81 MG ENTERIC TAB PO SCH (08:28)
[2020-06-18] MEDS: FOLIC ACID 1 MG TAB PO SCH (08:28)
[2020-06-18] MEDS: DOXEPIN 25 MG CAP PO SCH ×2 (08:29→20:47)
[2020-06-18] MEDS: cloNIDine 0.1 MG TAB PO SCH ×2 (08:29→20:47)
[2020-06-18] MEDS: COSOPT OCUMETER PLUS 10ML (DORZOLAMIDE/TIMOLOL) OU SCH ×2 (08:30→20:48)
[2020-06-18] MEDS: METOPROLOL TART 50 MG TAB PO SCH ×2 (08:30→20:46)
[2020-06-18] MEDS: FLUTICASONE PROP 0.05% NASAL SPRAY 16 GM (FLONASE) SCH (08:31)
[2020-06-18] MEDS: AZELASTINE 137MCG NASAL SPY 30 ML (ASTELIN) SCH (08:31)
[2020-06-18] MEDS: TOBRAMYCIN 0.3% OPHTH SOLN 5 ML OU SCH (08:35)
[2020-06-18] MEDS ORDERED: POTASSIUM CHLORIDE 10 MEQ SR TABLET PO SCH (09:00)
[2020-06-18] MEDS: LevoFLOXacin IV 500 MG in IV 1 EA IV SCH (13:21)
[2020-06-18 14:00] VITALS: BP 135/88
[2020-06-18 14:20] VITALS: O2SAT 98
--- NOTE | 2020-06-18 16:04 | IPNPDOC ---
Text Note Date of Service The patient was seen on 06/18/20. NOTE S: Upon interview, patient report significant improvement in his SOB and rated his current state 8/10 (with 10 being full recovery). His bilateral foot pain and swelling has also improved. He denies fever, chills, cough, N/V/D, abd pain, bladder or bowel symptoms, but noted producing white sputum. CONSTITUTIONAL: Denies chills, fever, loss of appetite HEENT: Denies headaches and dizziness. CARDIOVASCULAR: Denies chest pain, palpitations RESPIRATORY: Denies wheezing, cough. Some SOB noted. GASTROINTESTINAL: Denies nausea, vomiting, abdominal pain, diarrhea, constipat ion. GENITAOURINARY: Denies dysuria, urinary frequency or retention. O: VITAL SIGNS: See below GENERAL APPEARANCE: 64 y/o M patient in NAD and appears stated age. HEENT: Normocephalic and atraumatic, anicteric sclera. NECK: Supple. LUNGS: Diminished breath sounds in the R lung. Left lung clear to auscultation. No wheezes or rhonchi. CARDIOVASCULAR: Regular rate and rhythm, normal S1 & S2 without gallops, murmurs, rubs ABDOMEN: Soft, non-tender, non-distended. Normoactive bowel sounds noted in all four quadrants. No masses. EXTREMITIES: 2+ pitting edema of RLE up to below tibial tuberosity, 1+ pitting edema in LLE up to mid-tibial area. 1/4 PT pulses bilaterally. 2/4 radial pulses bilaterally. TELEMETRY: Monitor shows 98% spO2 on RA and HR of 86 BPM. SKIN: No rash, lesion NEUROLOGICAL: Normal speech. Diminished sensation in dosal foot bilaterally. Moving all 4 extremities without difficulty. PSYCHIATRIC: Normal mood and affect. Alert & oriented x3. Imaging: (06/16) CXR "Impression: Chronic changes. Subtle superimposed left basilar atelectasis and small effusion cannot be excluded." (06/16) CTA Chest with contrast "Impression: 1. No pulmonary embolism. 2. 5 mm solid pulmonary nodule in the right upper lobe, which is unchanged compared to the prior CT chest on 05/08/2020. [facility] follow up recommendations for incidental nodules are not indicated. Follow up per patient's medical condition. 3. Trace bilateral pleural effusions. 4. Mucous plugging in the right mainstem bronchus and the right middle lobe bronchus with atelectasis in the right middle lobe. 5. Post treatment changes from a partial right lower lobectomy and radiation therapy." A: Donald Nguyen is a 64 y/o M with pertinent past MHx of stage III adenocarcinoma of the RLL (dx in 09/2018, s/p R lobectomy, chemo (Keytruda) and radiation, chemo stopped in 01/2020 due to nephrotoxicity and leg swelling), HTN and COPD, found to have mucous plugging in R mainstem bronchus and RML bronchus with RML atelectasis on chest CTA concerning for PNA. P: #. SOB suspected 11/19 R-mainstem mucous plugging vs. post-obstructive pneumonia - Preliminary BCx results negative, sputum Cx pending - Cont flagyl and Levaquin for suspected post obstructive lobar PNA. - Patient cleared PT this afternoon but was hesitant to go home because he thought his last hospital visit was premature and his Keppra dosage was not well adjusted, causing him to have dizziness. While inpatient, he continued his Keppra at home dose and denied dizziness. - MRSA screen returned negative - Cont Pulmonary toilet: acapella, chest pt, IS, ezPAP - SpO2 98% on RA, titrate O2>92% - Discharge medication will need to be finalized tomorrow and patient is medically clear to go home once he feels comfortable with his current status. #. Bilateral Lower extremities edema -Echo completed, results pending. -Prior echo from 01/22/2020, showing LVEF 65% with PA pressure upper limits of normal, and otherwise unremarkable findings. #. Hypokalemia - Resolved - Cont home potassium supplementation #. Elevated creatinine - Baseline Creatinine 1.3-1.4. - Will continue to monitor #. HTN - Cont home metoprolol - Hold home HCTZ and lasix #. COPD - Cont oral prednisone 40 PO - Cont incentive spirometry - albuterol inhaler and advair. #. Gout - Cont home dose allopurinol #. GERD - Cont home prilosec # PTSD - Cont clonidine, doxepin # Hx of Sz disorder - Cont Keppra DVT prophylaxis: heparin SQ VS,Fishbone, I+O VS, Fishbone, I+O Laboratory Tests 06/18/20 05:58 Vital Signs Date Time Temp Pulse Resp B/P (MAP) Pulse Ox O2 Delivery O2 Flow Rate FiO2 06/18/20 14:20 98 Room Air 06/18/20 08:30 89 06/18/20 08:29 138/87 06/18/20 06:00 97.4 20 2.0 I&O- Last 24 Hours up to 6 AM 06/18/20 06:00 Intake Total 1740 ml Output Total 450 ml Balance 1290 ml GME ATTESTATION GME ATTESTATION My faculty preceptor for this patient encounter was physically present during the encounter and was fully available. All aspects of the patient interview, examination, medical decision making process, and medical care plan development were reviewed and approved by the faculty preceptor. The faculty preceptor is aware and concurs with the plan as stated in the body of this note and will attest to such by his/her cosignature. ATTENDING NOTE Patient was seen and examined by me personally with the residents and I agree with the above assessment and plan ELENA WHITLOCK OMS-3 Jun 18, 2020 16:04 RAMU HOWARD MD Jun 20, 2020 13:50
[2020-06-18] MEDS: levETIRAcetam **XR** 500 MG TABLET PO SCH (20:47)
[2020-06-18] MEDS: LATANOPROST 0.005% OPHTH SOLN 2.5 ML OU SCH (20:48)
[2020-06-18 22:00] VITALS: BP 163/81
[2020-06-18 22:59] VITALS: O2SAT 94
[2020-06-19] MEDS: IPRATROPIUM 0.5MG/ALBUTEROL 2.5MG INH SOL UD 3ML (DUONEB) NEB SCH ×4 (00:46→19:49)
[2020-06-19] MEDS: SODIUM CHLORIDE HYPERTONIC 3% 15ML NEB SOL INH SCH ×6 (04:00→19:49)
[2020-06-19 06:00] VITALS: BP 148/80
[2020-06-19] MEDS: HEPARIN SOD (PORCINE) 5000UNITS/ML 1ML VIAL/SYRINGE SQ SCH ×3 (06:00→20:38)
[2020-06-19] MEDS: metroNIDAZOLE 500 MG in IV 1 EA IV SCH ×3 (06:01→23:21)
[2020-06-19 06:24] LABS: BASO % 0.2 % (0.0-1.0); EOS # 0.4 10^3/uL (0.0-0.5); HEMATOCRIT 27.8 % (42.0-52.0); HEMOGLOBIN 9.4 g/dl (13.5-17.5); LYMPH # 0.9 10^3/uL (1.5-5.0); LYMPH % 21.9 % (24.0-44.0); MEAN CORPUSCULAR HEMOGLOBIN 32.3 pg (27.0-33.0); MEAN CORPUSCULAR HGB CONC 33.8 g/dl (32.0-36.5); MEAN CORPUSCULAR VOLUME 95.5 fl (80.0-96.0); MONO # 0.3 10^3/uL (0.0-0.8); NEUTROPHILS # 2.6 10^3/uL (1.5-8.5); NEUTROPHILS % 59.5 % (36.0-66.0); PLATELET COUNT, AUTOMATED 343 10^3/uL (150-450); RED BLOOD COUNT 2.91 10^6/uL (4.30-6.10); WHITE BLOOD COUNT 4.3 10^3/uL (4.0-10.0)
[2020-06-19 06:48] LABS: ALBUMIN 2.5 GM/DL (3.2-5.2); ALT/SGPT 17 U/L (12-78); BILIRUBIN,TOTAL 0.4 MG/DL (0.2-1.0); BLOOD UREA NITROGEN 26 MG/DL (7-18); CALCIUM LEVEL 8.5 MG/DL (8.8-10.2); CARBON DIOXIDE LEVEL 26 MEQ/L (21-32); CHLORIDE LEVEL 111 MEQ/L (98-107); GLOMERULAR FILTRATION RATE > 60.0 (>49); GLUCOSE, FASTING 87 MG/DL (70-100); SODIUM LEVEL 145 MEQ/L (136-145); TOTAL PROTEIN 5.5 GM/DL (6.4-8.2)
[2020-06-19] MEDS: ADVAIR HFA 230/21MCG INHALER INH SCH ×2 (07:44→19:48)
[2020-06-19] MEDS: TOBRAMYCIN 0.3% OPHTH SOLN 5 ML OU SCH (09:00)
[2020-06-19] MEDS: COSOPT OCUMETER PLUS 10ML (DORZOLAMIDE/TIMOLOL) OU SCH ×2 (09:00→20:39)
[2020-06-19] MEDS ORDERED: METR-265 PO (09:53)
[2020-06-19] MEDS ORDERED: LEVA1TAB2 PO (09:53)
[2020-06-19] MEDS ORDERED: PRED20TA PO (09:53)
[2020-06-19] MEDS: ASPIRIN 81 MG ENTERIC TAB PO SCH (09:54)
[2020-06-19] MEDS: cloNIDine 0.1 MG TAB PO SCH ×2 (09:54→20:37)
[2020-06-19] MEDS: predniSONE 20 MG TAB PO SCH (09:55)
[2020-06-19] MEDS: OMEPRAZOLE 20 MG CAP PO SCH ×2 (09:55→20:37)
[2020-06-19] MEDS: allopurinoL 300 MG TAB PO SCH (09:55)
[2020-06-19] MEDS: FOLIC ACID 1 MG TAB PO SCH (09:55)
[2020-06-19] MEDS: METOPROLOL TART 50 MG TAB PO SCH ×2 (09:55→20:38)
[2020-06-19] MEDS: clonazePAM 0.5 MG TAB PO SCH ×2 (09:56→20:34)
[2020-06-19] MEDS: DOXEPIN 25 MG CAP PO SCH ×2 (09:56→20:35)
[2020-06-19] MEDS: CETIRIZINE (ZyrTEC) 10 MG TAB PO SCH (09:56)
[2020-06-19] MEDS: FLUTICASONE PROP 0.05% NASAL SPRAY 16 GM (FLONASE) SCH (09:57)
--- NOTE | 2020-06-19 11:36 | DS.PDOC ---
Discharge Summary General Date of Admission Jun 16, 2020 at 20:09 Date of Discharge 06/19/2020 Attending Physician: RAMU HOWARD MD Specialist/Consultants Involve PCP unknown Discharge Summary PROCEDURES PERFORMED DURING STAY: [None]. ADMITTING/DISCHARGE DIAGNOSES: 1. Shortness of Breath (2/2 R-mainstem mucous plugging vs. post-obstructive pneumonia) 2. Bilateral lower extremities edema 3. Hypokalemia 4. Elevated creatinine 5. HTN 6. COPD 7. Gout 8. GERD 9. PTSD 10. Hx of Sz disorder COMPLICATIONS/CHIEF COMPLAINT: Copd Exacerbation, Mucus Plugging Of Bronchi. HISTORY OF PRESENT ILLNESS/ HOSPITAL COURSE: Patient was admitted to hospital with left sided chest pain (1 day prior to admission) and dyspnea. Chest pain resolved during hospital stay and it was worked up with negative serial troponin x4, normal EKG x2 and telemetry monitoring with no remarkable events. His CTA chest with contrast r/o PE but showed "mucous plugging in the right mainstem bronchus and the right middle lobe bronchus with atelectasis in the right middle lobe". At this point, his dyspnea was suspected to be 2/2 R-mainstem mucous plugging vs. post-obstructive pneumonia. Pulmonary toileting was started and he was placed on IV flagyl and levaquin to cover for suspected post-obstructive pneumonia. He continued to improve under the new regimen and his SOB resolved, his SpO2 remained around 98% on RA. His preliminary BCx returned negative and his sputum Cx were still pending at time of discharge. MRSA and COVID screen returned negative. He cleared PT for discharge on 06/18/2020 but was hesitant to go home due to previous experience in which he attributed feeling weakness due to premature discharge from his last hospital stay. He then reported on 06/19/2020 that he had an unwitness mechanical fall overnight without significant injury. He refused subacute rehab and agreed to be discharged home with oral abx. Of note, patient also reported bilateral foot pain and swelling and was found with elevated creatinine, which were attributed to his previous chemotherapy (Keytruda) that were discontinued on 01/2020. His creatinine remained around baseline (1.3-1.4) and his bilateral foot pain and swelling improved. He was placed on low salt diet during his hospital stay. DISCHARGE MEDICATIONS: Please see below. ALLERGIES: Please see below. PHYSICAL EXAMINATION ON DISCHARGE: VITAL SIGNS: Please see below. GENERAL APPEARANCE: 64 y/o M patient in NAD and appears stated age, in position of comfort. HEENT: Normocephalic and atraumatic, anicteric sclera. NECK: Supple. LUNGS: Clear to auscultation bilaterally. No wheezes or rhonchi. CARDIOVASCULAR: Regular rate and rhythm, normal S1 & S2 without gallops, murmurs, rubs ABDOMEN: Soft, non-tender, non-distended. Normoactive bowel sounds noted in all four quadrants. No masses. EXTREMITIES: 2+ pitting edema of RLE up to below tibial tuberosity, 1+ pitting edema in LLE up to mid-tibial area. 1/4 PT pulses bilaterally. 2/4 radial pulses bilaterally. SKIN: No rash, lesion NEUROLOGICAL: Normal speech. Moving all 4 extremities without difficulty. PSYCHIATRIC: Normal mood and affect. Alert & oriented x3. LABORATORY DATA: Please see below. IMAGING: (06/16) CXR "Impression: Chronic changes. Subtle superimposed left basilar atelectasis and small effusion cannot be excluded." (06/16) CTA Chest with contrast "Impression: 1. No pulmonary embolism. 2. 5 mm solid pulmonary nodule in the right upper lobe, which is unchanged compared to the prior CT chest on 05/08/2020. [facility] follow [facility] recommendations for incidental nodules are not indicated. Follow up per patient's medical condition. 3. Trace bilateral pleural effusions. 4. Mucous plugging in the right mainstem bronchus and the right middle lobe bronchus with atelectasis in the right middle lobe. 5. Post treatment changes from a partial right lower lobectomy and radiation therapy." PROGNOSIS: Fair-guarded ACTIVITY: As tolerated. DIET: As tolerated. DISCHARGE PLAN: Home DISPOSITION: Home, self-care DISCHARGE INSTRUCTIONS: 1. Please follow up with PCP in the next 7-10 days. 2. Please follow up with oncologist in the next 1-2 weeks. 3. Please return to hospital if symptoms worsen. ITEMS TO FOLLOWUP ON ON OUTPATIENT: 1. Final BCx results 2. Sputum Cx results 3. Echocardiogram results DISCHARGE CONDITION: Stable. TIME SPENT ON DISCHARGE: 36 minutes. Vital Signs/I&Os Vital Signs Date Time Temp Pulse Resp B/P (MAP) Pulse Ox O2 Delivery O2 Flow Rate FiO2 06/19/20 09:55 100 143/88 06/19/20 06:00 97.7 18 98 Nasal Cannula 2.0 I&O- Last 24 Hours up to 6 AM 06/19/20 06:00 Intake Total 2060 ml Output Total 500 ml Balance 1560 ml Laboratory Data Labs 24H Laboratory Tests 2 06/19/20 05:40: Immature Granulocyte % (Auto) 1.4, Neutrophils (%) (Auto) 59.5, Lymphocytes (%) (Auto) 21.9L, Monocytes (%) (Auto) 7.0H, Eosinophils (%) (Auto) 10.0H, Basophils (%) (Auto) 0.2, Neutrophils # (Auto) 2.6, Lymphocytes # (Auto) 0.9L, Monocytes # (Auto) 0.3, Eosinophils # (Auto) 0.4, Basophils # (Auto) 0.0, Nucleated Red Blood Cells % (auto) 0.0, Anion Gap 8, Glomerular Filtration Rate > 60.0, Calcium Level 8.5L, Total Bilirubin 0.4, Aspartate Amino Transf (AST/SGOT) 12, Alanine Aminotransferase (ALT/SGPT) 17, Alkaline Phosphatase 105, Total Protein 5.5L, Albumin 2.5L, Albumin/Globulin Ratio 0.8 CBC/BMP Laboratory Tests 06/19/20 05:40 Microbiology Microbiology 06/18/20 Gram Stain - Final, Resulted 06/18/20 Sputum Culture, Resulted Pending 06/16/20 Blood Culture - Preliminary, Resulted No Growth after 48 hours. All Specime... 06/16/20 Blood Culture - Preliminary, Resulted No Growth after 48 hours. All Specime... Discharge Medications Scheduled Allopurinol (Zyloprim) 300 Mg Tablet, 300 MG PO DAILY, (Reported) Aspirin (Aspirin EC) 81 Mg Tablet.dr, 81 MG PO DAILY, (Reported) Azelastine HCl (Azelastine HCl) 0.1 % Spr, 2 SPRAYS NARES BID, (Reported) Cetirizine HCl (Cetirizine HCl) 10 Mg Tab, 10 MG PO DAILY, (Reported) Cholecalciferol (Vitamin D3) (Vitamin D3) 1,000 Unit Tablet, 1,000 UNITS PO BID, (Reported) Clonazepam (Clonazepam) 0.5 Mg Tablet, 0.5 MG PO BID, (Reported) Clonidine HCl (Clonidine HCl) 0.1 Mg Tab, 0.1 MG PO DAILY, (Reported) Clonidine HCl (Clonidine HCl) 0.1 Mg Tab, 0.2 MG PO QHS, (Reported) Diphenhydramine HCl (Diphenhydramine HCl) 50 Mg Cap, 150 MG PO QHS, (Reported) Dorzolamide HCl/Timolol Maleat (Dorzolamide-Timolol Eye Drops) 1 [place], 1 DROP OU BID, (Reported) Doxepin HCl (Doxepin HCl) 25 Mg Cap, 50 MG PO BID, (Reported) Fluticasone Propion/Salmeterol (Wixela 250-50 Inhub) 1 Each Blst.w.dev, 1 EACH INH BID, (Reported) Fluticasone Propionate (Fluticasone Propionate) 16 Gm [place].susp, 1 SPRAY NA DAILY, (Reported) Folic Acid (Folic Acid) 1 Mg Tablet, 1 MG PO DAILY, (Reported) Furosemide (Furosemide) 40 Mg Tablet, 40 MG PO BID, (Reported) Hydrochlorothiazide (Hydrochlorothiazide) 12.5 Mg Capsule, 12.5 MG PO DAILY, (Reported) Latanoprost (Xalatan) 0.005 % [place], 1 DROP OU QHS, (Reported) Levetiracetam (Levetiracetam ER) 500 Mg Tab.er.24h, 500 MG PO QHS, (Reported) Levofloxacin (Levaquin) 500 Mg Tablet, 500 MG PO DAILY Metoprolol Tartrate (Metoprolol Tartrate) 50 Mg Tablet, 50 MG PO BID, (Reported) Metronidazole (Metronidazole) 500 Mg Tablet, 500 MG PO TID Omeprazole (Omeprazole) 20 Mg Cap, 20 MG PO BID, (Reported) Potassium Chloride (Potassium Chloride) 20 Meq Tab.er.prt, 20 MEQ PO DAILY, (Reported) Prednisone (Prednisone) 20 Mg Tablet, 20 MG PO DAILY Sildenafil Citrate (Sildenafil Citrate) 100 Mg Tablet, 100 MG PO ASDIRECTED, (Reported) Tobramycin (Tobramycin) 0.3% 5ML Drops, 1 DROP OU DAILY, (Reported) Scheduled PRN Albuterol Sulfate (Ventolin Hfa) 108 Mcg/Act Aer, 2 PUFFS INH Q4H PRN for SHORTNESS OF BREATH, (Reported) Polyethylene Glycol 3350 (Polyethylene Glycol 3350) 17 Gm Powd.pack, 1 PKT PO BID PRN for CONSTIPATION, (Reported) disolved in 8oz water/juice Allergies Coded Allergies: ibuprofen (Verified Allergy, Intermediate, rash, itching, 02/24/20) NSAIDS (Non-Steroidal Anti-Inflamma (Verified Allergy, Unknown, THROAT SWELLING, 05/07/20) Sulfa (Sulfonamide Antibiotics) (Verified Allergy, Unknown, CANT BREATHE, 05/07/20) amitriptyline (Verified Allergy, Unknown, THROAT SWELLING, 05/07/20) cefuroxime (Verified Allergy, Unknown, THROAT SWELLING, 05/07/20) diltiazem (Verified Allergy, Unknown, THROAT SWELLING, 05/07/20) fosinopril (Verified Allergy, Unknown, THROAT SWELLING, 05/07/20) gabapentin (Verified Allergy, Unknown, THROAT SWELLING, 05/07/20) losartan (Verified Allergy, Unknown, THROAT SWELLING, 05/07/20) GME ATTESTATION GME ATTESTATION My faculty preceptor for this patient encounter was physically present during the encounter and was fully available. All aspects of the patient interview, examination, medical decision making process, and medical care plan development were reviewed and approved by the faculty preceptor. The faculty preceptor is aware and concurs with the plan as stated in the body of this note and will attest to such by his/her cosignature. ATTENDING NOTE Patient was seen and examined by me personally with the residents and I agree with the above assessment and plan ELENA WHITLOCK OMS-3 Jun 19, 2020 11:36 RAMU HOWARD MD Jun 20, 2020 13:52
[2020-06-19] MEDS: LevoFLOXacin IV 500 MG in IV 1 EA IV SCH (13:39)
[2020-06-19 14:00] VITALS: BP 141/88
[2020-06-19 16:02] VITALS: O2SAT 98
[2020-06-19] MEDS: levETIRAcetam **XR** 500 MG TABLET PO SCH (20:37)
[2020-06-19] MEDS: LATANOPROST 0.005% OPHTH SOLN 2.5 ML OU SCH (20:39)
[2020-06-19 21:00] VITALS: O2SAT 99
[2020-06-19 22:00] VITALS: BP 140/90
[2020-06-20] MEDS: IPRATROPIUM 0.5MG/ALBUTEROL 2.5MG INH SOL UD 3ML (DUONEB) NEB SCH ×2 (01:34→07:54)
[2020-06-20] MEDS: SODIUM CHLORIDE HYPERTONIC 3% 15ML NEB SOL INH SCH ×3 (01:50→07:54)
[2020-06-20 06:00] VITALS: BP 141/89
[2020-06-20] MEDS: metroNIDAZOLE 500 MG in IV 1 EA IV SCH (06:11)
[2020-06-20] MEDS: HEPARIN SOD (PORCINE) 5000UNITS/ML 1ML VIAL/SYRINGE SQ SCH (06:12)
[2020-06-20] MEDS: ADVAIR HFA 230/21MCG INHALER INH SCH (07:53)
[2020-06-20] MEDS: DOXEPIN 25 MG CAP PO SCH (08:05)
[2020-06-20] MEDS: allopurinoL 300 MG TAB PO SCH (08:05)
[2020-06-20] MEDS: FOLIC ACID 1 MG TAB PO SCH (08:05)
[2020-06-20] MEDS: CETIRIZINE (ZyrTEC) 10 MG TAB PO SCH (08:05)
[2020-06-20] MEDS: predniSONE 20 MG TAB PO SCH (08:05)
[2020-06-20] MEDS: ASPIRIN 81 MG ENTERIC TAB PO SCH (08:05)
[2020-06-20 08:06] VITALS: BP 143/90
[2020-06-20] MEDS: cloNIDine 0.1 MG TAB PO SCH (08:06)
[2020-06-20] MEDS: OMEPRAZOLE 20 MG CAP PO SCH (08:06)
[2020-06-20] MEDS: METOPROLOL TART 50 MG TAB PO SCH (08:06)
[2020-06-20] MEDS: clonazePAM 0.5 MG TAB PO SCH (08:06)
[2020-06-20] MEDS: COSOPT OCUMETER PLUS 10ML (DORZOLAMIDE/TIMOLOL) OU SCH (08:07)
[2020-06-20] MEDS: FLUTICASONE PROP 0.05% NASAL SPRAY 16 GM (FLONASE) SCH (08:07)
[2020-06-20] MEDS: TOBRAMYCIN 0.3% OPHTH SOLN 5 ML OU SCH (08:12)
--- NOTE | 2020-06-20 08:19 | ECHO ---
DATE OF PROCEDURE: 06/17/2020 Age: Gender: Male Height: 190 cm Weight: 95 kg REFERRING PHYSICIAN: Noah Corado MD INDICATION: Edema MEASUREMENTS: RV 1.1 LV 4.6 LVPW 1.1 LA 3.7 Aorta 3.8 IVC 1.9 FINDINGS: The study is of very limited technical quality, only subcostal views are acceptable. The patient is in sinus rhythm. Left ventricle is normal size and overall has normal contractility. I estimate ejection fraction of 60%. No segmental wall motion abnormalities are appreciated based on limited views. The right ventricle also appears normal size and systolic function. Both atria appear normal. Aortic valve is tricuspid. It is significantly sclerotic, but there is no significant limitation of cusp mobility. Mitral and tricuspid valves appear normal. Pulmonic valve was not well visualized. No pericardial effusion is present. Inferior vena cava is in the upper limits of normal size, but at least partially collapses in inspiration. Aortic root is normal. Aortic arch and abdominal aorta were not seen. Doppler interrogation indicates no significant aortic stenosis or insufficiency. The same applies for mitral valve. There is trace tricuspid insufficiency. Calculated pulmonary artery pressure is around 30 mmHg corresponding to at least borderline pulmonary hypertension. Evaluation of diastolic function is inconclusive. Mitral inflow measurements and tissue Doppler measurements of mitral annulus were performed with significant off axis measurements and consequently will not be reported because the measurements are presumptively inaccurate. CONCLUSIONS: 1. Study is of limited technical quality. The patient is in sinus rhythm. 2. Normal LV size with preserved LV systolic function. Diastolic function was not adequately determined. 3. Prominent aortic sclerosis, but no significant stenosis or insufficiency. 4. Trace tricuspid insufficiency. 5. Likely normal or mildly elevated central venous pressure and at least borderline pulmonary hypertension. COMMENTS: SBE prophylaxis not recommended. MTDD
[2020-06-20 09:59] VITALS: O2SAT 96
--- NOTE | 2020-06-20 10:20 | DS.PDOC ---
Discharge Summary General Date of Admission Jun 16, 2020 at 20:09 Date of Discharge 06/20/2020 Attending Physician: RAMU HOWARD MD Specialist/Consultants Involve PCP: Janeth Jackman Discharge Summary PROCEDURES PERFORMED DURING STAY: TTE: LVEF 60% 1. Study is of limited technical quality. The patient is in sinus rhythm. 2. Normal LV size with preserved LV systolic function. Diastolic function was not adequately determined. 3. Prominent aortic sclerosis, but no significant stenosis or insufficiency. 4. Trace tricuspid insufficiency. 5. Likely normal or mildly elevated central venous pressure and at least borderline pulmonary hypertension (~30mm Hg). ADMITTING/DISCHARGE DIAGNOSES: 1. Shortness of Breath (2/2 R-mainstem mucous plugging vs. post-obstructive pneumonia) 2. Bilateral lower extremities edema 3. Hypokalemia 4. Elevated creatinine 5. HTN 6. COPD 7. Gout 8. GERD 9. PTSD 10. Hx of Sz disorder COMPLICATIONS/CHIEF COMPLAINT: Copd Exacerbation, Mucus Plugging Of Bronchi. HISTORY OF PRESENT ILLNESS/ HOSPITAL COURSE: Patient was admitted to hospital with left sided chest pain (1 day prior to admission) and dyspnea. Chest pain resolved during hospital stay and it was worked up with negative serial troponin x4, normal EKG x2 and telemetry monitoring with no remarkable events. His CTA chest r/o PE but showed "mucous plugging in the right mainstem bronchus and the right middle lobe bronchus with atelectasis in the right middle lobe". At this point, his dyspnea was suspected to be 2/2 R-mainstem mucous plugging vs. post- obstructive pneumonia. Pulmonary toilet was started and he was placed on IV flagyl and levaquin to cover for suspected post-obstructive pneumonia. He continued to improve under the new regimen and his SOB resolved, his SpO2 remained around 98% on RA. His BCx returned negative and his sputum Cx showed many gram positive cocci in pairs, chains, and clusters. MRSA and COVID screen returned negative. He cleared PT for discharge on 06/18/2020 but was hesitant to go home due to previous experience in which he attributed feeling weakness due to premature discharge from his last hospital stay. He then reported on 06/19/2020 that he had an unwitnessed mechanical fall overnight without significant injury and because of this he did not feel safe returning home delaying his discharge an additional day. He was discharged home with steroids and oral antibiotics with PCP follow up. DISCHARGE MEDICATIONS: Please see below. ALLERGIES: Please see below. PHYSICAL EXAMINATION ON DISCHARGE: VITAL SIGNS: Please see below. GENERAL APPEARANCE: 64 y/o M patient in NAD who appears stated age, in position of comfort. HEENT: Normocephalic and atraumatic, anicteric sclera. LUNGS: Clear to auscultation bilaterally. No wheezes or rhonchi. CARDIOVASCULAR: Regular rate and rhythm, normal S1 & S2 without gallops, murmurs, rubs ABDOMEN: Soft, non-tender, non-distended. Normoactive bowel sounds noted in all four quadrants. No masses. EXTREMITIES: 1+ pitting edema of bilateral LE. SKIN: No rashes, lesion NEUROLOGICAL: Normal speech. Moving all 4 extremities without difficulty. PSYCHIATRIC: Normal mood and affect. Alert & oriented x3. LABORATORY DATA: Please see below. IMAGING: (06/16) CXR "Impression: Chronic changes. Subtle superimposed left basilar atelectasis and small effusion cannot be excluded." (06/16) CTA Chest with contrast "Impression: 1. No pulmonary embolism. 2. 5 mm solid pulmonary nodule in the right upper lobe, which is unchanged compared to the prior CT chest on 05/08/2020. [facility] follow up recommendations for incidental nodules are not indicated. Follow up per patient's medical condition. 3. Trace bilateral pleural effusions. 4. Mucous plugging in the right mainstem bronchus and the right middle lobe bronchus with atelectasis in the right middle lobe. 5. Post treatment changes from a partial right lower lobectomy and radiation therapy." PROGNOSIS: Fair-guarded ACTIVITY: As tolerated. DIET: As tolerated. DISCHARGE PLAN: Home DISPOSITION: Home, self-care DISCHARGE INSTRUCTIONS: 1. Please follow up with PCP in the next 7-10 days. 2. Please follow up with oncologist in the next 1-2 weeks. 3. Please return to hospital if symptoms worsen. 4. Please complete course of antibiotics and steroids ITEMS TO FOLLOWUP ON ON OUTPATIENT: 1. Obtain repeat CXR 4 weeks from discharge to insure no other underlying pathology DISCHARGE CONDITION: Stable. TIME SPENT ON DISCHARGE: 36 minutes. Vital Signs/I&Os Vital Signs Date Time Temp Pulse Resp B/P (MAP) Pulse Ox O2 Delivery O2 Flow Rate FiO2 9/3/20 09:59 96 Room Air 06/20/20 08:06 102 06/20/20 08:06 143/90 06/20/20 06:00 98.0 18 06/19/20 06:00 2.0 I&O- Last 24 Hours up to 6 AM 06/20/20 05:59 Intake Total 1495 ml Output Total 1850 ml Balance -355 ml Laboratory Data Labs 24H Laboratory Tests 2 06/19/20 12:59: Lab Scanned Report Miscellaneous Lab Microbiology Microbiology 06/18/20 Gram Stain - Final, Complete 06/18/20 Sputum Culture - Final, Complete Yeast Like Organism 06/16/20 Blood Culture - Preliminary, Resulted No Growth after 72 hours. All specime... 06/16/20 Blood Culture - Preliminary, Resulted No Growth after 72 hours. All specime... Discharge Medications Scheduled Allopurinol (Zyloprim) 300 Mg Tablet, 300 MG PO DAILY, (Reported) Aspirin (Aspirin EC) 81 Mg Tablet.dr, 81 MG PO DAILY, (Reported) Azelastine HCl (Azelastine HCl) 0.1 % Spr, 2 SPRAYS NARES BID, (Reported) Cetirizine HCl (Cetirizine HCl) 10 Mg Tab, 10 MG PO DAILY, (Reported) Cholecalciferol (Vitamin D3) (Vitamin D3) 1,000 Unit Tablet, 1,000 UNITS PO BID, (Reported) Clonazepam (Clonazepam) 0.5 Mg Tablet, 0.5 MG PO BID, (Reported) Clonidine HCl (Clonidine HCl) 0.1 Mg Tab, 0.1 MG PO DAILY, (Reported) Clonidine HCl (Clonidine HCl) 0.1 Mg Tab, 0.2 MG PO QHS, (Reported) Diphenhydramine HCl (Diphenhydramine HCl) 50 Mg Cap, 150 MG PO QHS, (Reported) Dorzolamide HCl/Timolol Maleat (Dorzolamide-Timolol Eye Drops) 1 [place], 1 DROP OU BID, (Reported) Doxepin HCl (Doxepin HCl) 25 Mg Cap, 50 MG PO BID, (Reported) Fluticasone Propion/Salmeterol (Wixela 250-50 Inhub) 1 Each Blst.w.dev, 1 EACH INH BID, (Reported) Fluticasone Propionate (Fluticasone Propionate) 16 Gm [place].susp, 1 SPRAY NA DAILY, (Reported) Folic Acid (Folic Acid) 1 Mg Tablet, 1 MG PO DAILY, (Reported) Furosemide (Furosemide) 40 Mg Tablet, 40 MG PO BID, (Reported) Hydrochlorothiazide (Hydrochlorothiazide) 12.5 Mg Capsule, 12.5 MG PO DAILY, (Reported) Latanoprost (Xalatan) 0.005 % [place], 1 DROP OU QHS, (Reported) Levetiracetam (Levetiracetam ER) 500 Mg Tab.er.24h, 500 MG PO QHS, (Reported) Levofloxacin (Levaquin) 500 Mg Tablet, 500 MG PO DAILY Metoprolol Tartrate (Metoprolol Tartrate) 50 Mg Tablet, 50 MG PO BID, (Reported) Metronidazole (Metronidazole) 500 Mg Tablet, 500 MG PO TID Omeprazole (Omeprazole) 20 Mg Cap, 20 MG PO BID, (Reported) Potassium Chloride (Potassium Chloride) 20 Meq Tab.er.prt, 20 MEQ PO DAILY, (Reported) Prednisone (Prednisone) 20 Mg Tablet, 20 MG PO DAILY Sildenafil Citrate (Sildenafil Citrate) 100 Mg Tablet, 100 MG PO ASDIRECTED, (Reported) Tobramycin (Tobramycin) 0.3% 5ML Drops, 1 DROP OU DAILY, (Reported) Scheduled PRN Albuterol Sulfate (Ventolin Hfa) 108 Mcg/Act Aer, 2 PUFFS INH Q4H PRN for SHORTNESS OF BREATH, (Reported) Polyethylene Glycol 3350 (Polyethylene Glycol 3350) 17 Gm Powd.pack, 1 PKT PO BID PRN for CONSTIPATION, (Reported) disolved in 8oz water/juice Allergies Coded Allergies: ibuprofen (Verified Allergy, Intermediate, rash, itching, 02/24/20) NSAIDS (Non-Steroidal Anti-Inflamma (Verified Allergy, Unknown, THROAT SWELLING, 05/07/20) Sulfa (Sulfonamide Antibiotics) (Verified Allergy, Unknown, CANT BREATHE, 05/07/20) amitriptyline (Verified Allergy, Unknown, THROAT SWELLING, 05/07/20) cefuroxime (Verified Allergy, Unknown, THROAT SWELLING, 05/07/20) diltiazem (Verified Allergy, Unknown, THROAT SWELLING, 05/07/20) fosinopril (Verified Allergy, Unknown, THROAT SWELLING, 05/07/20) gabapentin (Verified Allergy, Unknown, THROAT SWELLING, 05/07/20) losartan (Verified Allergy, Unknown, THROAT SWELLING, 05/07/20) GME ATTESTATION GME ATTESTATION My faculty preceptor for this patient encounter was physically present during the encounter and was fully available. All aspects of the patient interview, examination, medical decision making process, and medical care plan development were reviewed and approved by the faculty preceptor. The faculty preceptor is aware and concurs with the plan as stated in the body of this note and will attest to such by his/her cosignature. ATTENDING NOTE Patient was seen and examined by me personally with the residents and I agree with the above assessment and plan TAURUS BRUCE DO Jun 20, 2020 10:20 RAMU HOWARD MD Jun 20, 2020 13:52
--- NOTE | 2020-06-30 07:09 | ECGEPIP ---
[facility] - ED Test Date: 2020-06-16 Pat Name: MEENA KELLY Department: Room: D4417-72 Gender: Male [employer] Supervisor: SAMI : 1955 Requested By: CHING Otero Order Number: [id number] Reading MD: Garo Wall Measurements Intervals [place] Rate: 103 P: 58 VA: 212 QRS: -54 QRSD: 109 T: 28 QT: 369 QTc: 484 Interpretive Statements SINUS TACHYCARDIA WITH FIRST DEGREE AV BLOCK BORDERLLINE LEFT AXIS DEVIATION NONSPECIFIC ST T WAVE CHANGES SEE DOWNTIME SCANNED REPORT
--- NOTE | 2020-07-09 10:41 | ECGEPIP ---
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
--- NOTE | 2020-07-12 13:59 | REP ---
CHEST X-RAY CLINICAL: Shortness of breath. COMPARISON: 01/20/2020. FINDINGS: Chronic elevation to the right hemidiaphragm and chronic interstitial changes are again noted and similar to prior examination. Subtle superimposed right basilar atelectasis and small right pleural effusion cannot definitively be excluded. Visualized portions of the mediastinum and cardiac silhouette are stable. Infusaport identified with tip in the SVC. Left hemithorax is relatively clear. No pneumothorax. Skeletal structures are intact. IMPRESSION: Relatively chronic stable changes as described above, including elevation to the right hemidiaphragm. Cannot exclude subtle superimposed right basilar atelectasis or small new right pleural effusion. MTDD
[2020-08-21] MEDS ORDERED: FLUT1BLS2 INH (16:07)
== END 2020-06-20 11:45 | disposition home or self-care (01) | DRG 194 ==
LOC: EDBD 17:22 → M ED 17:22 → M ED INP 20:09 → ENRESERV 21:27 → M MSPAV 22:11
PROVIDERS: ADMIT Internal Medicine; ATTEND Internal Medicine
DX: J18.9 Pneumonia, unspecified organism (principal); J98.11 Atelectasis; E87.6 Hypokalemia; K21.9 Gastro-esophageal reflux disease without esophagitis; I11.0 Hypertensive heart disease with heart failure; J44.9 Chronic obstructive pulmonary disease, unspecified; M10.9 Gout, unspecified; G40.909 Epilepsy, unspecified, not intractable, without status epilepticus; Z79.82 Long term (current) use of aspirin; Z79.899 Other long term (current) drug therapy; Z88.2 Allergy status to sulfonamides; Z88.6 Allergy status to analgesic agent; Z88.8 Allergy status to other drugs, medicaments and biological substances; F43.10 Post-traumatic stress disorder, unspecified; R91.1 Solitary pulmonary nodule

== ENCOUNTER 2020-07-09 11:24 | Emergency (ER) | payer OTHER ==
[~2020-07-09] VITALS: Ht 190.5 cm; Wt 91.8 kg
[~2020-07-09 11:24] MED LIST changes: +FLUTISP; +FURO40TA2 PO; +LEVA1TAB2 PO; +LEVE500XR PO; +METO50TA7 PO; +METR-265 PO; +PEG1POW PO; +POTA20TA6 PO; +PRED20TA PO; +ZYLO300T6 PO
[2020-07-09] MEDS ORDERED: COMBIVENT RESPIMAT 100-20MCG INHALER 4GM INH STA (12:01)
[2020-07-09 12:05] LABS: BASO % 0.4 % (0.0-1.0); EOS # 3.9 10^3/uL (0.0-0.5); HEMOGLOBIN 10.8 g/dl (13.5-17.5); LYMPH # 0.9 10^3/uL (1.5-5.0); LYMPH % 10.2 % (24.0-44.0); MEAN CORPUSCULAR HEMOGLOBIN 32.1 pg (27.0-33.0); MEAN CORPUSCULAR HGB CONC 33.8 g/dl (32.0-36.5); MEAN CORPUSCULAR VOLUME 95.2 fl (80.0-96.0); MONO # 0.3 10^3/uL (0.0-0.8); MONO % 2.9 % (0.0-5.0); NEUTROPHILS # 3.9 10^3/uL (1.5-8.5); NEUTROPHILS % 43.3 % (36.0-66.0); PLATELET COUNT, AUTOMATED 296 10^3/uL (150-450); RED BLOOD COUNT 3.36 10^6/uL (4.30-6.10); WHITE BLOOD COUNT 9.1 10^3/uL (4.0-10.0)
[2020-07-09 12:06] LABS: VENOUS BASE EXCESS 1.5 (-2.0-2.0); VENOUS HCO3 27.3 MEQ/L (23.0-27.0); VENOUS O2 SATURATION 76.7 % (60.0-80.0); VENOUS PARTIAL PRESSURE CO2 48.2 mmHg (38.0-50.0); VENOUS PARTIAL PRESSURE O2 45.2 mmHg (30.0-50.0); VENOUS PH 7.371 UNITS (7.330-7.430); VENOUS STANDARD HCO3 25.4 MEQ/L; VENOUS TOTAL CO2 28.8 MEQ/L (24.0-28.0)
--- NOTE | 2020-07-09 12:09 | REPVR ---
PROCEDURE INFORMATION: Exam: XR Chest, 1 View Exam date and time: 07/09/2020 11:57 AM Age: 64 years old Clinical indication: Shortness of breath; Additional info: Dyspnea/cough TECHNIQUE: Imaging protocol: XR of the chest Views: 1 view. COMPARISON: CR PORTABLE CHEST X-RAY 06/16/2020 5:39 PM (report not provided) FINDINGS: Tubes, catheters and devices: A right-sided Port-A-Cath is stable in position. Lungs: There is mild atelectasis and possibly infiltrate at the right base. The lungs are otherwise clear. Pleural space: A small right pleural effusion is again present. The left costophrenic angle is sharp. No pneumothorax is identified. Heart/Mediastinum: The cardiomediastinal silhouette is stable in appearance allowing for differences in positioning. Bones/joints: Unremarkable. IMPRESSION: Stable appearance as compared with 06/16/20, including small right pleural effusion with mild right basilar atelectasis and possibly infiltrate. Electronically signed by: Judson Kemp On 07/09/2020 12:09:25 PM
[2020-07-09 12:18] LABS: INR 1.04; PROTHROMBIN TIME 13.8 SECONDS (12.5-14.3)
[2020-07-09 12:44] LABS: ALBUMIN 2.8 GM/DL (3.2-5.2); BILIRUBIN,DIRECT 0.1 MG/DL (0.0-0.2); BILIRUBIN,TOTAL 0.4 MG/DL (0.2-1.0); THYROID STIMULATING HORMONE 1.49 uIU/ML (0.358-3.740); TOTAL PROTEIN 5.7 GM/DL (6.4-8.2)
--- NOTE | 2020-07-09 13:00 | ECGEPIP ---
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
--- NOTE | 2020-07-09 13:18 | REPVR ---
PROCEDURE INFORMATION: Exam: US Duplex Lower Extremity Veins, Bilateral Exam date and time: 07/09/2020 12:34 PM Age: 64 years old Clinical indication: Pain; Leg, lower; Bilateral; Additional info: Swelling TECHNIQUE: Imaging protocol: Real-time duplex ultrasound of the extremities with 2-D andre scale, color Doppler flow and spectral waveform analysis with image documentation. Complete exam focused on the bilateral lower extremity veins. COMPARISON: US Duplex, Ext LOWER veins, bilat 02/24/2020 4:33 AM FINDINGS: Right deep veins: Unremarkable. The common femoral, femoral, proximal profunda femoral and popliteal veins are patent without thrombus. Normal Doppler waveforms. Normal compressibility and/or augmentation response. Right superficial veins: Saphenofemoral junction is patent without thrombus. Left deep veins: Unremarkable. The common femoral, femoral, proximal profunda femoral and popliteal veins are patent without thrombus. Normal Doppler waveforms. Normal compressibility and/or augmentation response. Left superficial veins: Saphenofemoral junction is patent without thrombus. Soft tissues: An anechoic avascular collection in the left popliteal fossa measuring 2.9 x 5.6 x 1.0 cm may represent a Valle's cyst. Similar lesion here previously measured 2.9 x 3.9 x 0.9 cm. IMPRESSION: 1. No deep venous thrombus demonstrated in either lower extremity. 2. Findings suggesting left-sided Valle's cyst, mildly increased in size as compared with 02/24/20. Electronically signed by: Judson Kemp On 07/09/2020 13:18:00 PM
[2020-07-09] MEDS ORDERED: ISOVUE-370 76% 100ML VIAL As Ordered ONE (13:27)
--- NOTE | 2020-07-09 14:20 | REPVR ---
PROCEDURE INFORMATION: Exam: CT Angiography Chest With Contrast Exam date and time: 07/09/2020 1:38 PM Age: 64 years old Clinical indication: Shortness of breath; Additional info: SOB TECHNIQUE: Imaging protocol: Computed tomographic angiography of the chest with intravenous contrast. 3D rendering (Not supervised by radiologist): MIP and/or 3D reconstructed images were created by the technologist. Radiation optimization: All CT scans at this facility use at least one of these dose optimization techniques: automated exposure control; mA and/or kV adjustment per patient size (includes targeted exams where dose is matched to clinical indication); or iterative reconstruction. Contrast material: ISOVUE 370; Contrast volume: 75 ml; Contrast route: INTRAVENOUS (IV); COMPARISON: CT ANGIO CHEST 06/16/2020 6:51 PM FINDINGS: Tubes, catheters and devices: A right-sided Port-A-Cath is again present. Pulmonary arteries: No pulmonary embolus is identified. Aorta: The thoracic aorta is nonaneurysmal. Atherosclerotic vascular calcifications are noted. Lungs: There are again operative changes of partial right lower lobectomy, with fairly stable paramediastinal fibrosis in the right upper lobe. A 5 mm right upper lobe nodule appears fairly stable (image 401:[id number]). There is again mucous plugging and atelectasis in the right middle lobe. Areas of scarring are again present, right more than left. There is no new nodular airspace consolidation. Pleural space: A very small, partially loculated right pleural effusion is again present. Previous left pleural fluid has resolved. No pneumothorax. Heart: There is again a very small pericardial effusion. Lymph nodes: There are again a few subcentimeter short axis mediastinal lymph nodes, without new pathologic mediastinal or hilar lymphadenopathy identified. Bones/joints: Degenerative changes again involve the spine and shoulders. Some chronic left rib fractures are again present. Soft tissues: Unremarkable. IMPRESSION: 1. No pulmonary embolus identified. 2. Stable postoperative changes of the right chest as compared with 06/16/20, again with a very small, partially loculated right pleural effusion effusion. 3. Stable 5 mm right upper lobe nodule. Fleischner follow up recommendations for incidental nodules are not indicated. Follow up per patient's medical condition. 4. Similar very small pericardial effusion. Electronically signed by: Judson Kemp On 07/09/2020 14:20:36 PM
[2020-07-09 15:47] VITALS: O2SAT 97
[2020-07-09] MEDS ORDERED: PRED20TA PO (15:52)
[2020-07-09 16:00] VITALS: BP 140/96
[2020-07-09] MEDS ORDERED: predniSONE 20 MG TAB PO ONE (16:00)
--- NOTE | 2020-07-10 12:58 | ED PDOC ---
Post-Departure Follow-Up dr ranjeet momin faxed formal report of cta chest for fu Tiffanie Batista MD Jul 10, 2020 12:58
[2020-08-21] MEDS ORDERED: FLUT1BLS2 INH (16:07)
== END 2020-07-09 16:19 | disposition home or self-care (01) ==
LOC: M ED 11:24
DX: J44.1 Chronic obstructive pulmonary disease with (acute) exacerbation (principal); I31.3 Pericardial effusion (noninflammatory); R91.1 Solitary pulmonary nodule; I10 Essential (primary) hypertension; I44.0 Atrioventricular block, first degree; C34.90 Malignant neoplasm of unspecified part of unspecified bronchus or lung; F43.10 Post-traumatic stress disorder, unspecified; Z79.51 Long term (current) use of inhaled steroids; Z79.82 Long term (current) use of aspirin; Z79.899 Other long term (current) drug therapy; Z87.891 Personal history of nicotine dependence; Z88.1 Allergy status to other antibiotic agents; Z88.6 Allergy status to analgesic agent; Z88.8 Allergy status to other drugs, medicaments and biological substances; Z90.2 Acquired absence of lung [part of]; Z97.8 Presence of other specified devices

== ENCOUNTER 2020-08-27 18:21 | Inpatient (IN) | payer OTHER ==
[~2020-08-27] VITALS: Ht 190.5 cm; Wt 94.0 kg
[2020-08-27] MEDS ORDERED: methylPREDNISolone 125MG 2ML VIAL IV ONE (18:45)
[2020-08-27 18:54] LABS: VENOUS HCO3 25.4 MEQ/L (23.0-27.0); VENOUS O2 SATURATION 76.4 % (60.0-80.0); VENOUS PARTIAL PRESSURE CO2 53.7 mmHg (38.0-50.0); VENOUS PARTIAL PRESSURE O2 48.6 mmHg (30.0-50.0); VENOUS PH 7.292 UNITS (7.330-7.430); VENOUS STANDARD HCO3 22.3 MEQ/L
[2020-08-27 18:56] LABS: BASO % 0.4 % (0.0-1.0); EOS # 1.6 10^3/uL (0.0-0.5); EOS % 15.7 % (0.0-3.0); HEMATOCRIT 41.8 % (42.0-52.0); HEMOGLOBIN 13.5 g/dl (13.5-17.5); LYMPH # 1.6 10^3/uL (1.5-5.0); LYMPH % 16.5 % (24.0-44.0); MEAN CORPUSCULAR HEMOGLOBIN 29.8 pg (27.0-33.0); MEAN CORPUSCULAR HGB CONC 32.3 g/dl (32.0-36.5); MEAN CORPUSCULAR VOLUME 92.3 fl (80.0-96.0); MONO # 0.4 10^3/uL (0.0-0.8); MONO % 4.2 % (0.0-5.0); NEUTROPHILS # 6.3 10^3/uL (1.5-8.5); PLATELET COUNT, AUTOMATED 256 10^3/uL (150-450); RED BLOOD COUNT 4.53 10^6/uL (4.30-6.10); WHITE BLOOD COUNT 9.9 10^3/uL (4.0-10.0)
--- NOTE | 2020-08-27 19:08 | REP ---
INDICATION: CHEST PAIN. COMPARISON: July 09, 2020.. TECHNIQUE: Portable AP sitting radiograph. FINDINGS: Monitoring electrodes and oxygen tubing are seen. A right-sided Jeggnq-B-Ltml catheter is seen in with its tip in the expected location of the superior vena cava unchanged. There is elevation of the right hemidiaphragm and volume loss in right hemithorax again noted. Some increased markings are seen at the right base but these are unchanged. No infiltrate is noted on the left. Cardiomediastinal silhouette is unchanged. IMPRESSION: Volume loss and chronic pleuroparenchymal changes right chest. Right-sided Cxufwx-Z-Osgp catheter. No acute infiltrate. <Electronically signed by Geraldo Ramsey > 08/27/20 0426
[2020-08-27 19:13] LABS: INR 1.01; PROTHROMBIN TIME 13.5 SECONDS (12.5-14.3)
[2020-08-27 19:27] LABS: ALT/SGPT 14 U/L (12-78); BILIRUBIN,DIRECT < 0.1 MG/DL (0.0-0.2); BILIRUBIN,TOTAL 0.4 MG/DL (0.2-1.0); LIPASE 78 U/L (73-393); NT-PRO BNP 489 PG/ML (<125); POTASSIUM SERUM 4.7 MEQ/L (3.5-5.1); TOTAL PROTEIN 7.7 GM/DL (6.4-8.2)
[2020-08-27] MEDS: IPRATROPIUM 0.5MG/ALBUTEROL 2.5MG INH SOL UD 3ML (DUONEB) NEB SCH ×2 (19:30→19:32)
--- NOTE | 2020-08-27 20:01 | ECGEPIP ---
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
[2020-08-27] MEDS ORDERED: IPRATROPIUM 0.5MG/ALBUTEROL 2.5MG INH SOL UD 3ML (DUONEB) NEB ONE (22:15)
[2020-08-27] MEDS ORDERED: CALCIUM GLUCONATE 1,000 MG in D5W MINI-BAG PLUS 100 ML IV ONE (23:15)
[2020-08-27] MEDS ORDERED: LEVALBUTEROL 1.25 MG/0.5 ML CONCENTRATE NEB INH PRN (23:15)
[2020-08-27] MEDS ORDERED: ENOXAPARIN 30MG/0.3ML SYRINGE (J1650 PER 10MG) SC ONE (23:45)
[2020-08-28] VITALS (7 sets, daily range): BP systolic 126–155; BP diastolic 57–96
--- NOTE | 2020-08-28 00:05 | HPEPDOC ---
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 Pt is usually able to ambulate from BR to LR, DR, upstairs, and down to the kitchen without SOB. He also c/o pleuritic chest pain and cough productive of white thick sputum which has increased in amount , but hard to expectorate. He denies fever chills, weight gain, PND, orthopnea. He admits to weight loss from 220 to 209 lbs after his nightman diuresed him with improvement of his b/l LE edema, and he has been compliant with 2liter fluid restriction, and dietary salt restriction. Last Echo showed normal systolic function, and no valvular disease. In the ER, he was found to have acute hypoxia 86% on room air, CXR: no acute infiltrate, or pulmonary edema. COVID-19 was negative. He improved with nebulizer and solumedrol but still sob. Hospitalist was called to admit for COPD exacerbation. PAST MEDICAL HISTORY: colon polyp CKD3 Stage III, [id number] right lower lobe squamous cell carcinoma of the lung, S/P radiation therapy and chemotherapy Chemotherapy Cisplatin-induced nephrotoxicity Hypertension. Gout. Remote tobacco abuse Chronic obstructive pulmonary disease (COPD)/asthma. Posttraumatic stress disorder (PTSD). Seasonal allergies. Gastroesophageal reflux disease (GERD). HOME MEDICATIONS: SEE BELOW ALLERGIES: SEE BELOW SURGICAL HISTORY: colonoscopy -Dr. Ruffin Sinus surgery times three. Umbilical hernia repair. Right lung biopsy. Dental implants. FAMILY HISTORY: MOTHER age 51 "broken heart after my father " FATHER age 61 [place]/CAD BROTHER age 64, cirrhosis SISTER , 4yrs ago, multiple sclerosis SOCIAL HISTORY: Twice a month TAC use, former smoker 1ppd from age [age] y/o No alcohol use. 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 ROS: 10 POINT ros NEGATIVE, ASIDE FROM (+)FINDINGS ON HPI PHYSICAL EXAMINATION: VITALS: SEE BELOW CONSTITUTIONAL: NO accessory respiratory mm use, no conversational dyspnea. AAO x 3 EYES: PERRLA, EOM intact HENT, MOUTH: Normocephalic, atraumatic,no JVD, no thyromegaly, no cervical LAD, dry mucous membranes CV: Regular rate and rhythm, S1S2 normal, no murmurs/rubs/gallops RESPIRATORY:prolonged expiration. faint expiratory wheezing b/l. GI: BS positive in 4 quadrants, soft, nontender, nondistended, no rebound or guarding, no organomegaly EXT: +1 pitting extremity edema right>left. 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 Pt is usually able to ambulate from BR to LR, DR, upstairs, and down to the kitchen without SOB. He also c/o pleuritic chest pain and cough productive of white thick sputum which has increased in amount , but hard to expectorate. He denies fever chills, weight gain, PND, orthopnea. He admits to weight loss from 220 to 209 lbs after his nightman diuresed him with improvement of his b/l LE edema, and he has been compliant with 2liter fluid restriction, and dietary salt restriction. Last Echo showed normal systolic function, and no valvular disease. In the ER, CXR: no acute infiltrate, or pulmonary edema. COVID-19 was negative. He improved with nebulizer and solumedrol but still sob. Hospitalist was called to admit for COPD exacerbation. Acute hypoxic respiratory failure most likely due to mucus plugging and acute copd exacerbation. placed on supplemental oxygen to keep o2sat at 88-92%.cxr: no infiltrate or edema. r/o PE with vq scan in am, and venous dopplers to r/o dvt. Acute COPD Exacerbation on solumedrol, xopenex instead of albuterol due to sinus tachycardia, doxycycline. check sputum culture. respiratory panel is negative. covid 19 negative Hyperkalemia recheck k to rule out hemolysis. 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 Estrada after hospital discharge ckd3 due to Chemotherapy Cisplatin-induced nephrotoxicity monitor i/o daily weights. resume home diuretics managed by Dr. Wyatt as outpt. avoid nephrotoxins and renally dose all meds. monitor electrolytes. Hypertension, controlled resumed home meds Gout, chronic no acute c/o. Posttraumatic stress disorder (PTSD). no acute c/o. Seasonal allergies, chronic no acute c/o. Gastroesophageal reflux disease (GERD) resume home meds. LE edema resumed home diuretics. check dopplers b/l LE r/o DVT. Vital Signs Vital Signs Date Time Temp Pulse Resp B/P (MAP) Pulse Ox O2 Delivery O2 Flow Rate FiO2 08/27/20 21:30 128/85 (99) 08/27/20 21:21 110 99 08/27/20 18:21 98.3 30 Room Air Laboratory Data Labs 24H Laboratory Tests 2 08/27/20 18:40: Immature Granulocyte % (Auto) 0.2, Neutrophils (%) (Auto) 63.0, Lymphocytes (%) (Auto) 16.5L, Monocytes (%) (Auto) 4.2, Eosinophils (%) (Auto) 15.7H, Basophils (%) (Auto) 0.4, Neutrophils # (Auto) 6.3, Lymphocytes # (Auto) 1.6, Monocytes # (Auto) 0.4, Eosinophils # (Auto) 1.6H, Basophils # (Auto) 0.0, Nucleated Red Blood Cells % (auto) 0.0, Prothrombin Time 13.5, Prothromb Time International Ratio 1.01, Blood Gas Bicarbonate Standard 22.3, Venous Blood pH 7.292L, Venous Blood Partial Pressure CO2 53.7H, Venous Blood Partial Pressure O2 48.6, Venous Blood Total Carbon Dioxide 27.0, Venous Blood HCO3 25.4, Venous Blood Oxygen Saturation 76.4, Venous Blood Base Excess -2.0, Total Bilirubin 0.4, Direct Bilirubin < 0.1, Aspartate Amino Transf (AST/SGOT) 22, Alanine Aminotransferase (ALT/SGPT) 14, Alkaline Phosphatase 104, XG-Qkw-V-Type Natriuretic Peptide 489H, Total Protein 7.7, Albumin 4.0, Albumin/Globulin Ratio 1.1, Lipase 78, Thyroid Stimulating Hormone (TSH) 1.460 08/27/20 18:48: POC Troponin I (Misc) 0.42H 08/27/20 18:51: POC Glucose (Misc Panel) 106H, POC Sodium (Misc Panel) 135L, POC Potassium (Misc Panel) 6.6*H, POC Chloride (Misc Panel) 102, POC Total CO2 (Misc Panel) 30.0H, POC Blood Urea Nitrogen (Misc Panel 24, POC Ionized Calcium (Misc Panel) 4.6, POC Creatinine (Misc Panel) 1.4H, POC Hematocrit (Misc Panel) 43.0 08/27/20 21:30: POC Troponin I (Misc) 0.40H CBC/BMP Laboratory Tests 08/27/20 18:40 Microbiology Microbiology 08/27/20 Respiratory Virus Panel (PCR) ([facility]) - Final, Complete Home Medications Scheduled Allopurinol (Zyloprim) 300 Mg Tablet, 300 MG PO DAILY Aspirin (Aspirin EC) 81 Mg Tablet.dr, 81 MG PO DAILY Azelastine HCl (Azelastine HCl) 0.1 % Spr, 2 SPRAYS NARES BID Cetirizine HCl (Cetirizine HCl) 10 Mg Tab, 10 MG PO DAILY Cholecalciferol (Vitamin D3) (Vitamin D3) 1,000 Unit Tablet, 1,000 UNITS PO BID Clonazepam (Clonazepam) 0.5 Mg Tablet, 0.5 MG PO BID Clonidine HCl (Clonidine HCl) 0.1 Mg Tab, 0.1 MG PO DAILY Diphenhydramine HCl (Diphenhydramine HCl) 50 Mg Cap, 150 MG PO QHS Dorzolamide HCl/Timolol Maleat (Dorzolamide-Timolol Eye Drops) 1 [place], 1 DROP OU BID Doxepin HCl (Doxepin HCl) 25 Mg Cap, 50 MG PO BID Fluticasone Propion/Salmeterol (Wixela 250-50 Inhub) 1 Each Blst.w.dev, 1 EACH INH BID Fluticasone Propionate (Fluticasone Propionate) 16 Gm [place].susp, 1 SPRAY NA DAILY Folic Acid (Folic Acid) 1 Mg Tablet, 1 MG PO DAILY Furosemide (Furosemide) 40 Mg Tablet, 40 MG PO BID Hydrochlorothiazide (Hydrochlorothiazide) 12.5 Mg Capsule, 12.5 MG PO DAILY Latanoprost (Xalatan) 0.005 % [place], 1 DROP OU QHS Levetiracetam (Levetiracetam ER) 500 Mg Tab.er.24h, 500 MG PO QHS Metoprolol Tartrate (Metoprolol Tartrate) 50 Mg Tablet, 50 MG PO BID Omeprazole (Omeprazole) 20 Mg Cap, 20 MG PO BID Potassium Chloride (Potassium Chloride) 20 Meq Tab.er.prt, 20 MEQ PO DAILY Prednisone (Prednisone) 20 Mg Tablet, 60 MG PO DAILY Sildenafil Citrate (Sildenafil Citrate) 100 Mg Tablet, 100 MG PO ASDIRECTED Scheduled PRN Albuterol Sulfate (Ventolin Hfa) 108 Mcg/Act Aer, 2 PUFFS INH Q4H PRN for SHORTNESS OF BREATH Polyethylene Glycol 3350 (Polyethylene Glycol 3350) 17 Gm Powd.pack, 1 PKT PO BID PRN for CONSTIPATION disolved in 8oz water/juice Allergies Coded Allergies: NSAIDS (Non-Steroidal Anti-Inflamma (Verified Allergy, Severe, THROAT SWELLING, 08/27/20) Sulfa (Sulfonamide Antibiotics) (Verified Allergy, Severe, CANT BREATHE, 08/27/20) amitriptyline (Verified Allergy, Severe, THROAT SWELLING, 08/27/20) cefuroxime (Verified Allergy, Severe, THROAT SWELLING, 08/27/20) diltiazem (Verified Allergy, Severe, THROAT SWELLING, 08/27/20) fosinopril (Verified Allergy, Severe, THROAT SWELLING, 08/27/20) gabapentin (Verified Allergy, Severe, THROAT SWELLING, 08/27/20) losartan (Verified Allergy, Severe, THROAT SWELLING, 08/27/20) ibuprofen (Verified Allergy, Mild, rash, itching, 08/27/20) A-FIB/CHADSVASC A-FIB History Current/History of A-Fib/PAF?: No Current PO Anticoag Therapy: No Age/Risk Factor Scoring CHADSVASC: CHADSVASC Response (Comments) Value Age Risk Factor Age < 65 years old 0 Gender Risk Factor Male 0 Hx of CHF No 0 Hx of HTN Yes 1 Hx of Stroke/TIA/or VTE No 0 Hx of Diabetes No 0 Hx of Vascular Disease No 0 Total 1 Treatment Treatment ordered: NONE JENNI GROVER MD Aug 27, 2020 23:11
--- NOTE | 2020-08-28 00:29 | REPVR ---
PROCEDURE INFORMATION: Exam: US Duplex Lower Extremity Veins, Bilateral Exam date and time: 08/27/2020 12:17 AM Age: 64 years old Clinical indication: Edema, localized; Lower extremity, bilateral; Additional info: Edema R/O dvt TECHNIQUE: Imaging protocol: Real-time duplex ultrasound of the extremities with 2-D andre scale, color Doppler flow and spectral waveform analysis with image documentation. Complete exam focused on the bilateral lower extremity veins. COMPARISON: US Duplex, Ext LOWER veins, bilat 07/09/2020 12:15 PM FINDINGS: Right deep veins: Unremarkable. The common femoral, femoral and popliteal veins are patent without thrombus. Normal Doppler waveforms. Normal compressibility and/or augmentation response. Right superficial veins: Saphenofemoral junction is patent without thrombus. Left deep veins: Unremarkable. The common femoral, femoral and popliteal veins are patent without thrombus. Normal Doppler waveforms. Normal compressibility and/or augmentation response. Left superficial veins: Saphenofemoral junction is patent without thrombus. Soft tissues: Unremarkable. IMPRESSION: No sonographic evidence of deep vein thrombosis. Electronically signed by: Judson Whitlock On 08/28/2020 00:28:59 AM
[2020-08-28] MEDS ORDERED: MIRA1POW3 PO (01:12)
[2020-08-28] MEDS ORDERED: MAGN400T3 PO (01:12)
[2020-08-28] MEDS ORDERED: [UNRECOGNIZED DRUG - CODE] TEETH (01:12)
[2020-08-28] MEDS ORDERED: DOXE25CA PO (01:12)
[2020-08-28] MEDS ORDERED: ADV250INH INH (01:12)
[2020-08-28] MEDS: SOD POLYSTYRENE SULFONATE SUSP 15 GM/60 ML UD PO SCH ×2 (02:00)
[2020-08-28] MEDS: LEVALBUTEROL 1.25 MG/0.5 ML CONCENTRATE NEB INH SCH ×5 (02:54→14:33)
[2020-08-28] MEDS: DOXYCYCLINE HYCLATE 100MG TABLET PO SCH ×2 (02:59→09:44)
[2020-08-28] MEDS: methylPREDNISolone 125MG 2ML VIAL IV SCH ×2 (06:18→13:04)
[2020-08-28 07:14] LABS: BASO % 0.2 % (0.0-1.0); EOS % 0.5 % (0.0-3.0); HEMATOCRIT 35.8 % (42.0-52.0); HEMOGLOBIN 12.2 g/dl (13.5-17.5); MEAN CORPUSCULAR HEMOGLOBIN 30.6 pg (27.0-33.0); MEAN CORPUSCULAR HGB CONC 34.1 g/dl (32.0-36.5); MEAN CORPUSCULAR VOLUME 89.7 fl (80.0-96.0); MONO # 0.1 10^3/uL (0.0-0.8); MONO % 2.2 % (0.0-5.0); NEUTROPHILS # 4.7 10^3/uL (1.5-8.5); NEUTROPHILS % 79.8 % (36.0-66.0); PLATELET COUNT, AUTOMATED 240 10^3/uL (150-450); RED BLOOD COUNT 3.99 10^6/uL (4.30-6.10); WHITE BLOOD COUNT 5.9 10^3/uL (4.0-10.0)
[2020-08-28 07:32] LABS: BLOOD UREA NITROGEN 18 MG/DL (7-18); CALCIUM LEVEL 9.3 MG/DL (8.8-10.2); CARBON DIOXIDE LEVEL 23 MEQ/L (21-32); CHLORIDE LEVEL 105 MEQ/L (98-107); CREATININE FOR GFR 1.35 MG/DL (0.70-1.30); GLOMERULAR FILTRATION RATE > 60.0 (>49); GLUCOSE, FASTING 139 MG/DL (70-100); SODIUM LEVEL 136 MEQ/L (136-145)
[2020-08-28] MEDS ORDERED: ADVAIR HFA 115/21MCG INHALER INH SCH (08:00)
[2020-08-28] MEDS ORDERED: clonazePAM 0.5 MG TAB PO SCH (09:00)
[2020-08-28] MEDS ORDERED: FOLIC ACID 1 MG TAB PO SCH (09:00)
[2020-08-28] MEDS ORDERED: MAGNESIUM OXIDE 400 MG TAB (MAG-OX) PO SCH (09:00)
[2020-08-28] MEDS ORDERED: ENOXAPARIN 30MG/0.3ML SYRINGE (J1650 PER 10MG) SC SCH (09:00)
[2020-08-28] MEDS ORDERED: METOPROLOL TART 50 MG TAB PO SCH (09:00)
[2020-08-28] MEDS ORDERED: AZELASTINE 137MCG NASAL SPY 30 ML (ASTELIN) SCH (09:00)
[2020-08-28] MEDS ORDERED: VITAMIN D 1,000 INTERNATIONAL UNITS TABLET PO SCH (09:00)
[2020-08-28] MEDS ORDERED: OMEPRAZOLE 20 MG CAP PO SCH (09:00)
[2020-08-28] MEDS ORDERED: CETIRIZINE (ZyrTEC) 10 MG TAB PO SCH (09:00)
[2020-08-28] MEDS ORDERED: FLUTICASONE PROP 0.05% NASAL SPRAY 16 GM (FLONASE) SCH (09:00)
[2020-08-28] MEDS ORDERED: DOXEPIN 25 MG CAP PO SCH ×2 (09:00→21:00)
[2020-08-28] MEDS ORDERED: allopurinoL 300 MG TAB PO SCH (09:00)
[2020-08-28] MEDS ORDERED: cloNIDine 0.1 MG TAB PO SCH (09:00)
[2020-08-28] MEDS ORDERED: CLOPIDOGREL 300 MG TAB (PLAVIX) PO STA (10:00)
[2020-08-28] MEDS ORDERED: ASPIRIN 81 MG ENTERIC TAB PO SCH (10:00)
[2020-08-28] MEDS ORDERED: HEPARIN DRIP 25,000 UNITS in IV 1 EA IV SCH ×2 (10:04→10:45)
[2020-08-28] MEDS ORDERED: HEPARIN SOD (PORCINE) 5000UNITS/ML 1ML VIAL/SYRINGE IV ONE (10:15)
[2020-08-28] MEDS ORDERED: ISOVUE-370 76% 100ML VIAL As Ordered ONE (10:40)
[2020-08-28] MEDS ORDERED: SODIUM CHLORIDE 0.9% 1000ML IV ONE (10:45)
[2020-08-28] MEDS ORDERED: HEPARIN SOD (PORCINE) 5000UNITS/ML 1ML VIAL/SYRINGE IV PRN (10:45)
[2020-08-28] MEDS ORDERED: MIRALAX *UNIT DOSE* 17GM PACKET PO PRN (11:00)
[2020-08-28] MEDS ORDERED: ALBUTEROL 90 MCG/ACT 8GM HFA INHALER INH PRN (11:00)
[2020-08-28] MEDS: NS 1,000 ML IV SCH ×2 (11:20→13:02)
--- NOTE | 2020-08-28 12:37 | REP ---
INDICATION: rule out PE. Spoke to nephro, will get 500 cc NS bolus prior. COMPARISON: AP chest 08/27/2020, CT angiogram chest 07/09/2020 TECHNIQUE: CT angiogram chest performed following the intravenous administration of 75 cc of Isovue 370. Sagittal and coronal reconstruction images are performed. FINDINGS: Lungs: Lung french again show evidence of prior right lower lobectomy with stable fibrosis along the paramediastinal regions and small pleural effusion in deep sulcus in the right base, unchanged. I see no dense consolidation. Some anterior pleural thickening in the right mid and lower lung zone as before. The left lung shows compensatory hyperinflation with some minor basilar fibrotic changes. No left effusion. No pneumothorax. A stable peripheral nodule on image 53 in the mid axillary line in the right base is unchanged. Hilar fullness and composite density surrounds the vessels and airways at the right hilum. All of this is stable Mediastinum: No pathologic sized mediastinal adenopathy. Pulmonary arteries: Main, right and left pulmonary arteries in the mediastinum are without filling defect. Pulmonary arteries centrally are prominent consistent with pulmonary artery hypertension, stable. Gunjan: No left adenopathy. Right-sided chronic changes, stable. Axilla: No adenopathy. Pleura: Small basilar effusion on the right. Chronic pleural thickening anteriorly at the right mid chest, stable. Heart: Not enlarged. No pericardial thickening or effusion. Thoracic aorta: No aneurysm or dissection. Some calcifications noted. There is a bovine arch as anatomic variation with the left common carotid artery having a common origin with the innominate artery. Upper abdominal structures: Some eventration of the right diaphragm with the liver and spleen, adrenal glands, pancreas, contracted gallbladder, stomach and upper poles of kidneys all unremarkable. Visualized osseous structures: Degenerative changes throughout the spine without lytic, blastic lesions or fractures. IMPRESSION: No CT evidence of pulmonary thromboembolism. Chronic right lower lobectomy changes pleural thickening, small right base effusion and a stable 5 mm nodule in the mid axillary line right base. No new or acute finding. <Electronically signed by Elder Santos > 08/28/20 [id number]
--- NOTE | 2020-08-28 13:11 | DS.PDOC ---
Discharge Summary General Date of Admission Aug 27, 2020 at 22:56 Date of Discharge 08/28/20 Attending Physician: FELECIA CAMARILLO MD Discharge Summary PROCEDURES PERFORMED DURING STAY: [None]. 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 HISTORY OF PRESENT ILLNESS: 64 AA male with stage 3 RLL squamous cell Lung CA s/p chemo/RT, ckd3 due to cisplatin , copd not on o2 presents to the ER with 1 wk h/o worsening sob limiting ambulation from bedrm to Living Rm to Dining Rm. Pt is usually able to ambulate from BR to LR, DR, upstairs, and down to the kitchen without SOB. He also c/o pleuritic chest pain and cough productive of white thick sputum which has increased in amount , but hard to expectorate. He denies fever chills, weight gain, PND, orthopnea. He admits to weight loss from 220 to 209 lbs after his rn telemetry diuresed him with improvement of his b/l LE edema, and he has been compliant with 2liter fluid restriction, and dietary salt restriction. Last Echo showed normal systolic function, and no valvular disease. In the ER, he was found to have acute hypoxia 86% on room air, CXR: no acute infiltrate, or pulmonary edema. COVID-19 was negative. He improved with nebulizer and solumedrol but still sob. Hospitalist was called to admit for COPD exacerbation. HOSPITAL COURSE: Mr. Tee was admitted for acute hypoxic respiratory failure secondary to acute COPD exacerbation as well as mucus plugging. He was given Solu-Medrol, doxycycline as well as DuoNebs. Respiratory panel was negative. Covid 19 was negative. Given hypoxia and tachycardia, there was concurrent concern for pulmonary embolism. V/Q scan initially ordered given CKD hx, howevere consulted with nephrology, was recommend to hydrate patient pre and post IV contrast. Therefore, CTA PE was performed. Patient was given a 500 mL bolus of IV normal saline prior to contrast. CT angiogram did not reveal pulmonary embolism. On the evening of admission he complained of left-sided chest pain. POC Trop in ER was 0.42, repeat 0.4. Repeat troponin in the morning was 0.44. Patient continued to have chest pain this morning. EKG showed concerns for lateral and inferior wall ischemia. No ST elevation was seen. Transferred to [facility] was initiated, patient will be accepted by hospitalist service for possible cardiac intervention. Additional problems were addressed as below: 64 AA male with stage 3 RLL squamous cell Lung CA s/p chemo/RT, ckd3 due to cisplatin , copd not on o2 presents to the ER with 1 wk h/o worsening sob limiting ambulation from bedrm to Living Rm to Dining Rm. Pt is usually able to ambulate from BR to LR, DR, upstairs, and down to the kitchen without SOB. He also c/o pleuritic chest pain and cough productive of white thick sputum which h as increased in amount , but hard to expectorate. He denies fever chills, weight gain, PND, orthopnea. He admits to weight loss from 220 to 209 lbs after his rn telemetry diuresed him with improvement of his b/l LE edema, and he has been compliant with 2liter fluid restriction, and dietary salt restriction. Last Echo showed normal systolic function, and no valvular disease. In the ER, CXR: no acute infiltrate, or pulmonary edema. COVID-19 was negative. He improved with nebulizer and solumedrol but still sob. Hospitalist was called to admit for COPD exacerbation. Acute hypoxic respiratory failure most likely due to mucus plugging and acute copd exacerbation. placed on supplemental oxygen to keep o2sat at 88-92%.cxr: no infiltrate or edema. Acute COPD Exacerbation on solumedrol, xopenex instead of albuterol due to sinus tachycardia, doxycycline. respiratory panel is negative. covid 19 negative Hyperkalemia - hemolyzed sample, repeat wnl stage 3 RLL squamous cell Lung CA s/p chemo/RT outpt richard Estrada after hospital discharge. [facility] in [facility]. ckd3 due to Chemotherapy Cisplatin-induced nephrotoxicity monitor i/o daily weights. avoid nephrotoxins and renally dose all meds. monitor electrolytes. Held home dose lasix as was due to receive IV contrast with CTA. Given 500 cc NS bolus, and continued IV NS at 125 cc/hr for 5 hours after. Hypertension - BP 185/116 on arrival, normalized Gout, chronic no acute c/o. Posttraumatic stress disorder (PTSD). no acute c/o. Seasonal allergies, chronic no acute c/o. Gastroesophageal reflux disease (GERD) resume home meds. LE edema resumed home diuretics. check dopplers b/l LE r/o DVT - negative for DVT. DISCHARGE MEDICATIONS: Please see below. ALLERGIES: Please see below. PHYSICAL EXAMINATION ON DISCHARGE: VITAL SIGNS: please see below General: NAD, comfortable HEENT: PERRLA, EOMI, sclerae clear Neck: supple, normal ROM, no JVD Respiratory: Reduced inspiratory effort bilaterally, otherwise mild wheezing in bilateral lung french, no wheeze, no rales, no crackles CVS: RRR, normal S1, S2, no murmurs Abdo: soft, no masses, no hepatosplenomegaly, BS+, no rebound tenderness Extremities: no edema, pulses 2+ MSK: no joint deformities, normal ROM Neuro: no focal neuro deficits, moving all 4 extremities, CN2-12 intact. Strength 5/5 in all 4 extremities. No nystagmus. Psych: calm, cooperative, AAO x 3 LABORATORY DATA: Please see below. IMAGING: CXR (08/28/20): Volume loss and chronic pleuroparenchymal changes right chest. Right-sided Bhzfpt-D-Fcll catheter. No acute infiltrate. US Duplex Bilateral LE (08/28/20): IMPRESSION: No sonographic evidence of deep vein thrombosis. CTA PE (08/28/20): FINDINGS: Lungs: Lung french again show evidence of prior right lower lobectomy with sta ble fibrosis along the paramediastinal regions and small pleural effusion in deep sulcus in the right base, unchanged. I see no dense consolidation. Some anterior pleural thickening in the right mid and lower lung zone as before. The left lung shows compensatory hyperinflation with some minor basilar fibrotic changes. No left effusion. No pneumothorax. A stable peripheral nodule on image 53 in the mid axillary line in the right base is unchanged. Hilar fullness and composite density surrounds the vessels and airways at the right hilum. All of this is stable Mediastinum: No pathologic sized mediastinal adenopathy. Pulmonary arteries: Main, right and left pulmonary arteries in the mediastinum are without filling defect. Pulmonary arteries centrally are prominent consistent with pulmonary artery hypertension, stable. Gunjan: No left adenopathy. Right-sided chronic changes, stable. Axilla: No adenopathy. Pleura: Small basilar effusion on the right. Chronic pleural thickening anter iorly at the right mid chest, stable. Heart: Not enlarged. No pericardial thickening or effusion. Thoracic aorta: No aneurysm or dissection. Some calcifications noted. There is a bovine arch as anatomic variation with the left common carotid artery having a common origin with the innominate artery. Upper abdominal structures: Some eventration of the right diaphragm with the liver and spleen, adrenal glands, pancreas, contracted gallbladder, stomach and upper poles of kidneys all unremarkable. Visualized osseous structures: Degenerative changes throughout the spine without lytic, blastic lesions or fractures. IMPRESSION: No CT evidence of pulmonary thromboembolism. Chronic right lower lobectomy changes pleural thickening, small right base effusion and a stable 5 mm nodule in the mid axillary line right base. No new or acute finding. PROGNOSIS: good ACTIVITY: [As tolerated]. DIET: NPO for possible cardiac intervention at [facility] DISCHARGE PLAN: transfer to [facility] for NSTEMI, possible cardiac cath DISCHARGE INSTRUCTIONS: Continue IVF NS at 125 cc/hr for 5 hours after contrast (ends at 1900 on 08/28/20) DISCHARGE CONDITION: [Stable]. TIME SPENT ON DISCHARGE: Greater than 30 minutes. Vital Signs/I&Os Vital Signs Date Time Temp Pulse Resp B/P (MAP) Pulse Ox O2 Delivery O2 Flow Rate FiO2 08/28/20 13:00 94 152/96 08/28/20 12:05 97.1 18 100 Nasal Cannula 4.0 I&O- Last 24 Hours up to 6 AM 08/28/20 06:00 Intake Total 480 ml Output Total 700 ml Balance -220 ml Laboratory Data Labs 24H Laboratory Tests 2 08/27/20 18:40: Immature Granulocyte % (Auto) 0.2, Neutrophils (%) (Auto) 63.0, Lymphocytes (%) (Auto) 16.5L, Monocytes (%) (Auto) 4.2, Eosinophils (%) (Auto) 15.7H, Basophils (%) (Auto) 0.4, Neutrophils # (Auto) 6.3, Lymphocytes # (Auto) 1.6, Monocytes # (Auto) 0.4, Eosinophils # (Auto) 1.6H, Basophils # (Auto) 0.0, Nucleated Red Blood Cells % (auto) 0.0, Prothrombin Time 13.5, Prothromb Time International Ratio 1.01, Blood Gas Bicarbonate Standard 22.3, Venous Blood pH 7.292L, Venous Blood Partial Pressure CO2 53.7H, Venous Blood Partial Pressure O2 48.6, Venous Blood Total Carbon Dioxide 27.0, Venous Blood HCO3 25.4, Venous Blood Oxygen Saturation 76.4, Venous Blood Base Excess -2.0, Total Bilirubin 0.4, Direct Bilirubin < 0.1, Aspartate Amino Transf (AST/SGOT) 22, Alanine Aminotransferase (ALT/SGPT) 14, Alkaline Phosphatase 104, QC-Huu-C-Type Natriuretic Peptide 489H, Total Protein 7.7, Albumin 4.0, Albumin/Globulin Ratio 1.1, Lipase 78, Thyroid Stimulating Hormone (TSH) 1.460 08/27/20 18:48: POC Troponin I (Misc) 0.42H 08/27/20 18:51: POC Glucose (Misc Panel) 106H, POC Sodium (Misc Panel) 135L, POC Potassium (Misc Panel) 6.6*H, POC Chloride (Misc Panel) 102, POC Total CO2 (Misc Panel) 30.0H, POC Blood Urea Nitrogen (Misc Panel 24, POC Ionized Calcium (Misc Panel) 4.6, POC Creatinine (Misc Panel) 1.4H, POC Hematocrit (Misc Panel) 43.0 08/27/20 19:29: POC Total CO2 (Misc Panel) 24.0, POC pH (Misc Panel) 7.362, POC Base Excess (Misc Panel) -2.0, POC Saturated Percent O2 (Misc) 94L, POC pO2 (Misc Panel) 73.0L, POC pCO2 (Misc Panel) 40.9, POC HCO3 (Misc Panel) 23.2 08/27/20 21:30: POC Troponin I (Misc) 0.40H 08/27/20 22:56: Lab Scanned Report LAB OTHER 08/28/20 06:42: Immature Granulocyte % (Auto) 0.3, Neutrophils (%) (Auto) 79.8H, Lymphocytes (%) (Auto) 17.0L, Monocytes (%) (Auto) 2.2, Eosinophils (%) (Auto) 0.5, Basophils (%) (Auto) 0.2, Neutrophils # (Auto) 4.7, Lymphocytes # (Auto) 1.0L, Monocytes # (Auto) 0.1, Eosinophils # (Auto) 0.0, Basophils # (Auto) 0.0, Nucleated Red Blood Cells % (auto) 0.0, Anion Gap 8, Glomerular Filtration Rate > 60.0, Calcium Level 9.3 08/28/20 08:57: Troponin I 0.44H 08/28/20 12:37: CBC/BMP Laboratory Tests 08/27/20 18:40 08/28/20 00:19 08/28/20 06:42 Microbiology Microbiology 08/27/20 Respiratory Virus Panel (PCR) ([facility]) - Final, Complete Discharge Medications Scheduled Allopurinol (Zyloprim) 300 Mg Tablet, 300 MG PO DAILY, (Reported) Aspirin (Aspirin EC) 81 Mg Tablet.dr, 81 MG PO DAILY, (Reported) Azelastine HCl (Azelastine HCl) 0.1 % Spr, 2 SPRAYS NA BID, (Reported) Cetirizine HCl (Cetirizine HCl) 10 Mg Tab, 10 MG PO DAILY, (Reported) Cholecalciferol (Vitamin D3) (Vitamin D3) 1,000 Unit Tablet, 1,000 UNITS PO DAILY, (Reported) Clonazepam (Clonazepam) 0.5 Mg Tablet, 0.5 MG PO BID, (Reported) Clonidine HCl (Clonidine HCl) 0.1 Mg Tab, 0.1 MG PO BID, (Reported) Clopidogrel Bisulfate (Plavix) 75 Mg Tablet, 75 MG PO DAILY Diphenhydramine HCl (Diphenhydramine HCl) 50 Mg Cap, 100 MG PO QHS, (Reported) Doxepin HCl (Doxepin HCl) 25 Mg Cap, 75 MG PO DAILY, (Reported) Doxepin HCl (Doxepin HCl) 25 Mg Capsule, 50 MG PO QHS, (Reported) Doxycycline Hyclate (Doxycycline Hyclate) 100 Mg Tablet, 100 MG PO BID Fluoride (Sodium) (Prevident 5000 Plus) 51 Gm Cream..g., 1 DOSE TEETH ASDIRECTED, (Reported) Fluticasone Propionate (Fluticasone Propionate) 16 Gm [place].susp, 1 SPRAY NA BID , (Reported) Folic Acid (Folic Acid) 1 Mg Tablet, 1 MG PO DAILY, (Reported) Heparin Sod,Pork in 0.45% NaCl (Heparin 25,000 Unit/250-1/2 Ns) 25,000 Unit/250 Ml Iv.soln, 1 INJ IV cont Levetiracetam (Levetiracetam ER) 500 Mg Tab.er.24h, 1,000 MG PO QHS, (Reported) Magnesium Oxide (Magnesium Oxide) 400 Mg Tablet, 400 MG PO BID, (Reported) Methylprednisolone (Solu-Medrol 125 mg Vial) 125 Mg/2 Ml Vial, 80 MG IV Q8H Metoprolol Tartrate (Metoprolol Tartrate) 50 Mg Tablet, 50 MG PO BID, (Reported) Omeprazole (Omeprazole) 20 Mg Cap, 20 MG PO BID, (Reported) Salmeterol/Fluticasone (Advair 250-50 Diskus) 1 Each Blst.w.dev, 1 PUFF INH BID, (Reported) Scheduled PRN Albuterol Sulfate (Ventolin Hfa) 108 Mcg/Act Aer, 2 PUFFS INH Q2H PRN for SHORTNESS OF BREATH, (Reported) Polyethylene Glycol 3350 (Miralax) 17 Gm Powd.pack, 17 GM PO DAILY PRN for CONSTIPATION, (Reported) Allergies Coded Allergies: NSAIDS (Non-Steroidal Anti-Inflamma (Verified Allergy, Severe, THROAT SWELLING, 08/27/20) Sulfa (Sulfonamide Antibiotics) (Verified Allergy, Severe, CANT BREATHE, 08/27/20) amitriptyline (Verified Allergy, Severe, THROAT SWELLING, 08/27/20) cefuroxime (Verified Allergy, Severe, THROAT SWELLING, 08/27/20) diltiazem (Verified Allergy, Severe, THROAT SWELLING, 08/27/20) fosinopril (Verified Allergy, Severe, THROAT SWELLING, 08/27/20) gabapentin (Verified Allergy, Severe, THROAT SWELLING, 08/27/20) losartan (Verified Allergy, Severe, THROAT SWELLING, 08/27/20) ibuprofen (Verified Allergy, Mild, rash, itching, 08/27/20) FELECIA CAMARILLO MD Aug 28, 2020 13:11
[2020-08-28] MEDS ORDERED: METH125VL IV (13:30)
[2020-08-28] MEDS ORDERED: DOXY100T PO (13:30)
[2020-08-28] MEDS ORDERED: PLAV1TAB2 PO (13:30)
[2020-08-28] MEDS ORDERED: HEPA1INJ78 IV (13:30)
[2020-08-28] MEDS ORDERED: MORPHINE 2 MG/ML 1ML VIAL (J2270) IV PRN (14:30)
[2020-08-28] MEDS: NITROGLYCERIN 0.3 MG SUBL TAB SL PRN ×3 (15:18→15:31)
[2020-08-28] MEDS ORDERED: FUROSEMIDE 40 MG TAB PO SCH (17:00)
--- NOTE | 2020-08-28 17:17 | ECGEPIP ---
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
[2020-08-28] MEDS ORDERED: levETIRAcetam **XR** 500 MG TABLET PO SCH (21:00)
[2020-08-28] MEDS ORDERED: diphenhydrAMINE 50MG CAP PO SCH (21:00)
[2020-08-29] MEDS ORDERED: ASPIRIN 81 MG ENTERIC TAB PO SCH (09:00)
--- NOTE | 2020-08-29 18:46 | ECGEPIP ---
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
== END 2020-08-28 16:18 | disposition short-term general hospital (02) | DRG 189 ==
LOC: M ED 18:21 → M ED INP 22:56 → ENRESERV 23:28 → M MS5PR 08-28 02:16 → M PCU 08-28 12:00
PROVIDERS: ADMIT General Practice; ATTEND General Practice
DX: J96.01 Acute respiratory failure with hypoxia (principal); J44.1 Chronic obstructive pulmonary disease with (acute) exacerbation; C34.90 Malignant neoplasm of unspecified part of unspecified bronchus or lung; E87.5 Hyperkalemia; N18.30 Chronic kidney disease, stage 3 unspecified; M10.9 Gout, unspecified; K21.9 Gastro-esophageal reflux disease without esophagitis; F43.10 Post-traumatic stress disorder, unspecified; Z92.3 Personal history of irradiation; Z79.899 Other long term (current) drug therapy; Z79.82 Long term (current) use of aspirin; Z88.2 Allergy status to sulfonamides; Z88.6 Allergy status to analgesic agent; Z88.8 Allergy status to other drugs, medicaments and biological substances

== ENCOUNTER 2020-09-05 09:46 | Emergency (ER) | payer OTHER ==
[~2020-09-05] VITALS: Ht 182.9 cm; Wt 94.8 kg
[~2020-09-05 09:46] MED LIST changes: +DOXY100T PO; -FLUTISP; +FLUTISP NARES; +HEPA1INJ78 IV; +MAGN400T3 PO; +METH125VL IV; +METO200T28 PO; +MIRA1POW3 PO; +PLAV1TAB2 PO; +[UNRECOGNIZED DRUG - CODE] TEETH
[2020-09-05 11:07] LABS: BASO % 0.4 % (0.0-1.0); EOS # 1.4 10^3/uL (0.0-0.5); EOS % 19.4 % (0.0-3.0); HEMATOCRIT 38.6 % (42.0-52.0); HEMOGLOBIN 13.1 g/dl (13.5-17.5); LYMPH # 0.9 10^3/uL (1.5-5.0); MEAN CORPUSCULAR HEMOGLOBIN 30.6 pg (27.0-33.0); MEAN CORPUSCULAR HGB CONC 33.9 g/dl (32.0-36.5); MEAN CORPUSCULAR VOLUME 90.2 fl (80.0-96.0); MONO # 0.4 10^3/uL (0.0-0.8); NEUTROPHILS # 4.4 10^3/uL (1.5-8.5); NEUTROPHILS % 61.9 % (36.0-66.0); PLATELET COUNT, AUTOMATED 307 10^3/uL (150-450); RED BLOOD COUNT 4.28 10^6/uL (4.30-6.10); WHITE BLOOD COUNT 7.2 10^3/uL (4.0-10.0)
[2020-09-05] MEDS ORDERED: ATOR1TAB21 PO (11:08)
[2020-09-05] MEDS ORDERED: HYDR12.55 PO (11:08)
[2020-09-05] MEDS ORDERED: HYDR-3910 PO (11:08)
[2020-09-05] MEDS ORDERED: ISOS30TA4 PO (11:08)
[2020-09-05 11:29] LABS: ALBUMIN 4.1 GM/DL (3.2-5.2); ALT/SGPT 15 U/L (12-78); BILIRUBIN,DIRECT 0.1 MG/DL (0.0-0.2); BILIRUBIN,TOTAL 0.5 MG/DL (0.2-1.0); BLOOD UREA NITROGEN 13 MG/DL (7-18); CALCIUM LEVEL 9.6 MG/DL (8.8-10.2); CARBON DIOXIDE LEVEL 28 MEQ/L (21-32); CHLORIDE LEVEL 101 MEQ/L (98-107); CPK CREATINE PHOSPHOKINASE 57 U/L (39-308); CREATININE FOR GFR 1.46 MG/DL (0.70-1.30); GLOMERULAR FILTRATION RATE > 60.0 (>49); GLUCOSE, FASTING 96 MG/DL (70-100); LIPASE 63 U/L (73-393); MB/CK RELATIVE INDEX 3.51 (< OR =4); POTASSIUM SERUM 3.6 MEQ/L (3.5-5.1); SODIUM LEVEL 136 MEQ/L (136-145); TOTAL PROTEIN 7.4 GM/DL (6.4-8.2); TROPONIN I 0.02 NG/ML (< 0.10)
--- NOTE | 2020-09-05 11:53 | REP ---
INDICATION: abd pain COMPARISON: Chest x-ray dated 08/27/2020 TECHNIQUE: Upright view of the chest with supine and upright views of the abdomen and pelvis. FINDINGS: Frontal view of the chest demonstrates moderate right pleural effusion with pleuroparenchymal changes which appear increased from prior examination. Vxrryo-X-Kutg identified with tip in the SVC. Bowel gas pattern is nonspecific and without evidence for obstruction or perforation. No obvious organomegaly. No abnormal calcification or significant foreign body. Skeletal structures are intact. IMPRESSION: 1. Increased right pleuroparenchymal changes suggesting increasing effusion and underlying infiltrates. 2. Nonspecific bowel gas pattern. <Electronically signed by Mirza Sommer > 09/05/20 [id number]
[2020-09-05] MEDS ORDERED: FLEET OIL RETENTION ENEMA PR ONE (12:45)
--- NOTE | 2020-09-05 14:31 | ECGEPIP ---
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
[2020-09-05 15:59] LABS: CK-MB VALUE MASS 1.9 NG/ML (<3.6); CPK CREATINE PHOSPHOKINASE 57 U/L (39-308); MB/CK RELATIVE INDEX 3.33 (< OR =4); TROPONIN I < 0.02 NG/ML (< 0.10)
[2020-09-05] MEDS ORDERED: COLA100C5 PO (16:50)
[2020-09-05 17:21] VITALS: BP 134/93
--- NOTE | 2020-09-06 21:29 | ECGEPIP ---
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
--- NOTE | 2020-09-07 09:38 | ED PDOC ---
Post-Departure Follow-Up dr momin faxed formal report of abdominal series for fu Tiffanie Batista MD Sep 07, 2020 09:38
== END 2020-09-05 17:27 | disposition home or self-care (01) ==
LOC: M ED 09:46
DX: K59.00 Constipation, unspecified (principal); R07.9 Chest pain, unspecified; C34.31 Malignant neoplasm of lower lobe, right bronchus or lung; J44.9 Chronic obstructive pulmonary disease, unspecified; N18.30 Chronic kidney disease, stage 3 unspecified; K21.9 Gastro-esophageal reflux disease without esophagitis; M10.9 Gout, unspecified; Z79.51 Long term (current) use of inhaled steroids; Z79.52 Long term (current) use of systemic steroids; Z79.82 Long term (current) use of aspirin; Z79.899 Other long term (current) drug therapy; Z88.6 Allergy status to analgesic agent; Z88.1 Allergy status to other antibiotic agents; Z88.2 Allergy status to sulfonamides

== ENCOUNTER 2020-09-08 04:40 | Inpatient (IN) | payer OTHER, MEDICARE ==
[~2020-09-08] VITALS: Ht 182.9 cm; Wt 93.5 kg
[2020-09-08] VITALS (21 sets, daily range): BP systolic 97–150; BP diastolic 65–87; O2SAT 96–98
[~2020-09-08 04:40] MED LIST changes: +ATOR1TAB21 PO; +COLA100C5 PO; +HYDR-3910 PO; +HYDR12.55 PO; +ISOS30TA4 PO
[2020-09-08] MEDS: COMBIVENT RESPIMAT 100-20MCG INHALER 4GM INH SCH ×3 (05:11→10:30)
[2020-09-08] MEDS ORDERED: ROCURONIUM BROMIDE 50 MG/5 ML VIAL IV ONE (05:15)
[2020-09-08] MEDS ORDERED: propofoL 1,000 MG in IV 1 EA IV SCH (05:15)
[2020-09-08] MEDS ORDERED: ETOMIDATE INJ 20MG/10ML VIAL IV ONE (05:15)
[2020-09-08 05:56] LABS: BASO # 0.1 10^3/uL (0.0-0.2); BASO % 0.3 % (0.0-1.0); EOS # 1.5 10^3/uL (0.0-0.5); EOS % 9.4 % (0.0-3.0); HEMATOCRIT 37.1 % (42.0-52.0); HEMOGLOBIN 12.3 g/dl (13.5-17.5); LYMPH % 6.4 % (24.0-44.0); MEAN CORPUSCULAR HEMOGLOBIN 30.4 pg (27.0-33.0); MEAN CORPUSCULAR HGB CONC 33.2 g/dl (32.0-36.5); MEAN CORPUSCULAR VOLUME 91.8 fl (80.0-96.0); MONO # 0.4 10^3/uL (0.0-0.8); MONO % 2.3 % (0.0-5.0); NEUTROPHILS # 12.5 10^3/uL (1.5-8.5); NEUTROPHILS % 81.3 % (36.0-66.0); PLATELET COUNT, AUTOMATED 277 10^3/uL (150-450); RED BLOOD COUNT 4.04 10^6/uL (4.30-6.10); WHITE BLOOD COUNT 15.4 10^3/uL (4.0-10.0)
[2020-09-08 06:09] LABS: BLOOD UREA NITROGEN 24 MG/DL (7-18); CARBON DIOXIDE LEVEL 30 MEQ/L (21-32); CHLORIDE LEVEL 99 MEQ/L (98-107); GLOMERULAR FILTRATION RATE 41.5 (>49); GLUCOSE, FASTING 118 MG/DL (70-100); POTASSIUM SERUM 3.7 MEQ/L (3.5-5.1); SODIUM LEVEL 135 MEQ/L (136-145)
[2020-09-08 06:10] LABS: ALBUMIN 4.3 GM/DL (3.2-5.2); ALT/SGPT 13 U/L (12-78); BILIRUBIN,DIRECT 0.1 MG/DL (0.0-0.2); BILIRUBIN,TOTAL 0.3 MG/DL (0.2-1.0); CALCIUM LEVEL 8.9 MG/DL (8.8-10.2); CK-MB VALUE MASS 2.4 NG/ML (<3.6); CPK CREATINE PHOSPHOKINASE 111 U/L (39-308); MB/CK RELATIVE INDEX 2.16 (< OR =4); NT-PRO BNP 116 PG/ML (<125); TOTAL PROTEIN 7.7 GM/DL (6.4-8.2); TROPONIN I < 0.02 NG/ML (< 0.10)
--- NOTE | 2020-09-08 06:44 | ECGEPIP ---
[facility] - ED Test Date: 2020-09-08 Pat Name: MEENA KELLY Department: Room: - Gender: Male Button Tufter: JM : 1955 Requested By: TANISHA Blunt Order Number: [id number] Reading MD: Tiffanie Luna Measurements Intervals [place] Rate: 90 P: 52 [place]: 221 QRS: -3 QRSD: 112 T: 55 QT: 404 QTc: 497 Interpretive Statements SINUS RHYTHM WITH FIRST DEGREE AV BLOCK MODERATE INTRAVENTRICULAR CONDUCTION DELAY NONSPECIFIC T-WAVE ABNORMALITY PROLONGED QTC CW 09/05/20 RATE INCREASED MORE PRONOUNCED ST T WAVE ABNORMALITY - CONSIDR ISCHEMIA VS NONSPECIFIC CLINICAL CORRELATION ADVISED Electronically Signed on 09-08-2020 6:44:21 EST by Tiffanie Luna
--- NOTE | 2020-09-08 06:48 | REPVR ---
PROCEDURE INFORMATION: Exam: XR Chest, 1 View Exam date and time: 09/08/2020 5:58 AM Age: 64 years old Clinical indication: Other: Dyspnea/cough TECHNIQUE: Imaging protocol: XR of the chest Views: 1 view. COMPARISON: CR Abdomen,Flat Upright,PA CHEST 2020-09-05 11:33 FINDINGS: Tubes, catheters and devices: Endotracheal tube tip in mid trachea. Oral gastric tube tip and sidehole are within the stomach. Unchanged Port-A-Cath. Lungs: See "Pleural space" finding. Pleural space: Slightly small right-sided pleural effusion and atelectasis. Heart/Mediastinum: Unremarkable. No cardiomegaly. Bones/joints: Unremarkable. IMPRESSION: 1. Endotracheal tube tip in mid trachea. 2. Oral gastric tube tip and sidehole are within the stomach. 3. Slightly small right-sided pleural effusion and atelectasis. Electronically signed by: Anshu Anguiano On 09/08/2020 06:48:28 AM
[2020-09-08] MEDS ORDERED: fentaNYL 100 MCG/2 ML INJECTION (J3010) As Ordered ONE (07:34)
[2020-09-08] MEDS ORDERED: NS 1,000 ML IV STA (07:36)
[2020-09-08] MEDS ORDERED: fentaNYL 100 MCG/2 ML INJECTION (J3010) IV ONE (07:45)
[2020-09-08] MEDS ORDERED: PLAV1TAB2 PO (07:59)
[2020-09-08] MEDS ORDERED: DOCU100C16 PO (07:59)
[2020-09-08] MEDS ORDERED: MIDAZOLAM INJ 2MG/2ML VIAL (J2250 PER 1MG) IV STA (08:11)
[2020-09-08] MEDS ORDERED: MIDAZOLAM INJ 2MG/2ML VIAL (J2250 PER 1MG) As Ordered ONE (08:13)
--- NOTE | 2020-09-08 08:13 | REPVR ---
PROCEDURE INFORMATION: Exam: CT Head Without Contrast Exam date and time: 09/08/2020 7:57 AM Age: 64 years old Clinical indication: Altered mental status/memory loss; Confusion or disorientation; Additional info: AMS, acute hypoxic respiratory failure TECHNIQUE: Imaging protocol: Computed tomography of the head without contrast. Radiation optimization: All CT scans at this facility use at least one of these dose optimization techniques: automated exposure control; mA and/or kV adjustment per patient size (includes targeted exams where dose is matched to clinical indication); or iterative reconstruction. COMPARISON: CT Head without contrast 04/03/2020 1:08 PM FINDINGS: Brain: There is no acute intracranial abnormality. Mild prominence of ventricles and sulci representing volume loss. Mild small vessel ischemic changes are seen. There is no mass, midline shift, or mass effect. White-white matter differentiation is preserved. There is no evidence of hemorrhage. There is no extra-axial fluid collection. Basal cisterns are patent. Cerebral ventricles: See "Brain" finding. Bones/joints: The visualized osseous structures are unremarkable. Paranasal sinuses: Extensive mucosal thickening of the visualized sinuses. Mastoid air cells: Mastoid air cells are clear. Soft tissues: Unremarkable. IMPRESSION: 1. Mild volume loss and small vessel ischemic changes. . 2. No acute intracranial abnormality. 3. Extensive sinus disease likely chronic. Electronically signed by: Susie Lee On 09/08/2020 08:13:18 AM
--- NOTE | 2020-09-08 08:23 | REPVR ---
PROCEDURE INFORMATION: Exam: CT Chest Without Contrast; Diagnostic Exam date and time: 09/08/2020 7:57 AM Age: 64 years old Clinical indication: Other: Acute hypoxic respiratory failure; Additional info: AMS, acute hypoxic respiratory failure TECHNIQUE: Imaging protocol: Diagnostic computed tomography of the chest without contrast. 3D rendering (Not supervised by radiologist): MIP and/or 3D reconstructed images were created by the technologist. Radiation optimization: All CT scans at this facility use at least one of these dose optimization techniques: automated exposure control; mA and/or kV adjustment per patient size (includes targeted exams where dose is matched to clinical indication); or iterative reconstruction. COMPARISON: OT CT ANGIO CHEST 08/28/2020 11:59 AM FINDINGS: Tubes, catheters and devices: NG tube is terminating in the stomach. Endotracheal tube in mid trachea, in good position. Lungs: Status post partial right lower lobectomy with paramediastinal fibrosis in the right upper lobe, not significantly changed from prior study. Stable right middle lobe 4 mm nodule. Mucous plugging and atelectasis in the right middle lobe. Left lung is relatively clear. Pleural space: Unremarkable. No pneumothorax. No pleural effusion. Heart: Unremarkable. No cardiomegaly. No pericardial effusion. Mediastinal space: Mild mediastinal shift to the large 8 secondary to volume loss. Aorta: Mild atherosclerosis of the aortic arch. Veins: Right IJ line is terminating in the SVC. Lymph nodes: Subcentimeter few mediastinal lymph nodes. These are not pathologically enlarged by CT criteria. Diaphragm: Elevation of right hemidiaphragm. Bones/joints: Demineralization of the bones with degenerative changes. Soft tissues: Unremarkable. IMPRESSION: Status post partial right lower lobectomy with paramediastinal fibrosis in the right upper lobe, not significantly changed from prior study. Stable right middle lobe 4 mm nodule. Mucous plugging and atelectasis in the right middle lobe. Left lung is relatively clear. Electronically signed by: Susie Lee On 09/08/2020 08:23:20 AM
[2020-09-08] MEDS ORDERED: FURO40TA2 PO (08:50)
[2020-09-08] MEDS ORDERED: LEVE250T5 PO (08:50)
[2020-09-08] MEDS ORDERED: GLUCOSE 4GM CHEW TABLET PO PRN (10:00)
[2020-09-08] MEDS ORDERED: GLUCAGON INJ 1MG VIAL SC PRN (10:00)
[2020-09-08] MEDS ORDERED: DEXTROSE 50% 50 ML SYRINGE IV PRN (10:00)
[2020-09-08] MEDS: MIDAZOLAM INJ 2MG/2ML VIAL (J2250 PER 1MG) IV PRN ×3 (10:21→23:55)
[2020-09-08] MEDS: propofoL 1,000 MG in IV 1 EA IV SCH ×4 (10:21→20:23)
[2020-09-08 10:25] LABS: ABG BASE EXCESS 0.9 (-2.0-2.0); ABG HCO3 25.1 MEQ/L (22.0-26.0); ABG O2 SATURATION 92.1 % (95.0-99.0); ABG PARTIAL PRESSURE CO2 38.5 mmHg (35.0-45.0); ABG PARTIAL PRESSURE O2 64.6 mmHg (75.0-100.0); ABG STANDARD HCO3 25.2 MEQ/L (22.0-26.0); ABG TOTAL CO2 26.3 MEQ/L (23.0-31.0); ABG pH (ARTERIAL) 7.432 UNITS (7.350-7.450)
[2020-09-08] MEDS: methylPREDNISolone 125MG 2ML VIAL IV SCH ×2 (10:25→18:42)
[2020-09-08] MEDS: CHLORHEXIDINE GLUCONATE 0.12 % 15ML UDC (PERIDEX ORAL RINSE) MT SCH ×2 (10:25→20:22)
[2020-09-08] MEDS: PANTOPRAZOLE 40MG VIAL (C9113 PER 1) IV SCH (10:25)
[2020-09-08] MEDS: D5W/0.9% SODIUM CHLORIDE 1,000 ML IV SCH ×2 (10:29→22:43)
[2020-09-08] MEDS: IPRATROPIUM 0.5MG/ALBUTEROL 2.5MG INH SOL UD 3ML (DUONEB) NEB SCH ×3 (11:30→19:52)
[2020-09-08] MEDS: HumaLOG INSULIN (NovoLOG) PER UNIT SC SCH ×2 (12:16→18:43)
[2020-09-08] MEDS: HEPARIN SOD (PORCINE) 5000UNITS/ML 1ML VIAL/SYRINGE SC SCH ×2 (14:50→22:43)
[2020-09-09] VITALS (16 sets, daily range): BP systolic 99–150; BP diastolic 62–90; O2SAT 96
[2020-09-09] MEDS: IPRATROPIUM 0.5MG/ALBUTEROL 2.5MG INH SOL UD 3ML (DUONEB) NEB SCH ×6 (00:13→21:03)
[2020-09-09] MEDS: methylPREDNISolone 125MG 2ML VIAL IV SCH ×2 (01:15→09:30)
[2020-09-09] MEDS: propofoL 1,000 MG in IV 1 EA IV SCH ×3 (01:15→07:28)
[2020-09-09 05:13] LABS: BASO % 0.1 % (0.0-1.0); HEMATOCRIT 33.8 % (42.0-52.0); HEMOGLOBIN 11.5 g/dl (13.5-17.5); LYMPH # 0.7 10^3/uL (1.5-5.0); LYMPH % 5.1 % (24.0-44.0); MEAN CORPUSCULAR HEMOGLOBIN 30.1 pg (27.0-33.0); MEAN CORPUSCULAR VOLUME 88.5 fl (80.0-96.0); MONO # 0.2 10^3/uL (0.0-0.8); MONO % 1.1 % (0.0-5.0); NEUTROPHILS # 12.4 10^3/uL (1.5-8.5); NEUTROPHILS % 93.3 % (36.0-66.0); PLATELET COUNT, AUTOMATED 270 10^3/uL (150-450); RED BLOOD COUNT 3.82 10^6/uL (4.30-6.10); WHITE BLOOD COUNT 13.3 10^3/uL (4.0-10.0)
[2020-09-09 05:44] LABS: ALBUMIN 3.4 GM/DL (3.2-5.2); ALT/SGPT 11 U/L (12-78); BILIRUBIN,TOTAL 0.3 MG/DL (0.2-1.0); BLOOD UREA NITROGEN 22 MG/DL (7-18); CARBON DIOXIDE LEVEL 25 MEQ/L (21-32); CHLORIDE LEVEL 105 MEQ/L (98-107); CHOLESTEROL LEVEL 150 MG/DL (< 200); CPK CREATINE PHOSPHOKINASE 54 U/L (39-308); CREATININE FOR GFR 1.37 MG/DL (0.70-1.30); GLOMERULAR FILTRATION RATE > 60.0 (>49); GLUCOSE, FASTING 158 MG/DL (70-100); LDH LACTATE DEHYDROGENASE 169 U/L (87-241); PHOSPHORUS LEVEL 3.5 MG/DL (2.5-4.9); POTASSIUM SERUM 3.2 MEQ/L (3.5-5.1); SODIUM LEVEL 138 MEQ/L (136-145); TOTAL PROTEIN 6.4 GM/DL (6.4-8.2); TRIGLYCERIDES LEVEL 89 MG/DL (<150)
[2020-09-09] MEDS: HEPARIN SOD (PORCINE) 5000UNITS/ML 1ML VIAL/SYRINGE SC SCH ×3 (05:53→21:42)
[2020-09-09] MEDS: HumaLOG INSULIN (NovoLOG) PER UNIT SC SCH ×4 (05:53→17:15)
[2020-09-09 06:15] LABS: ABG BASE EXCESS -1.2 (-2.0-2.0); ABG HCO3 22.5 MEQ/L (22.0-26.0); ABG O2 SATURATION 95.8 % (95.0-99.0); ABG PARTIAL PRESSURE CO2 34.2 mmHg (35.0-45.0); ABG PARTIAL PRESSURE O2 83.4 mmHg (75.0-100.0); ABG STANDARD HCO3 23.4 MEQ/L (22.0-26.0); ABG TOTAL CO2 23.5 MEQ/L (23.0-31.0); ABG pH (ARTERIAL) 7.436 UNITS (7.350-7.450)
--- NOTE | 2020-09-09 07:28 | REP ---
INDICATION: ETT COMPARISON: 09/08/2020 TECHNIQUE: Portable AP view of the chest FINDINGS: Endotracheal tube 4 cm above the kumar. Nasogastric tube extends to the left upper quadrant. Jiviau-O-Zsrh with tip in the right atrium. Chronic stable elevation to the right hemidiaphragm is again noted with suggestion for minimal right basilar atelectasis and small right pleural effusion. Left hemithorax is relatively well aerated and clear. No obvious pneumothorax. Cardiac silhouette is within normal limits and stable. Skeletal structures are grossly intact. IMPRESSION: Suspect small right pleural effusion and right basilar atelectasis which may be increased from prior examination. <Electronically signed by Mirza Sommer > 09/09/20 [id number]
[2020-09-09] MEDS ORDERED: POTASSIUM CHLORIDE 10 MEQ SR TABLET PO ONE (09:15)
[2020-09-09] MEDS: CHLORHEXIDINE GLUCONATE 0.12 % 15ML UDC (PERIDEX ORAL RINSE) MT SCH ×2 (09:29→20:29)
[2020-09-09] MEDS: PANTOPRAZOLE 40MG VIAL (C9113 PER 1) IV SCH (09:29)
[2020-09-09] MEDS: D5W/0.9% SODIUM CHLORIDE 1,000 ML IV SCH (09:42)
--- NOTE | 2020-09-09 10:19 | HPE ---
DATE OF ADMISSION: 09/08/2020 Critical Care admission note SUBJECTIVE: I was called to the emergency department to evaluate this 65-year-old male with acute respiratory failure. He presented with acute onset of shortness of breath and hypoxemia complicated by possible hallucinations. In the emergency department, he was found to be combative and hypoxemic. An endotracheal tube was placed and mechanical ventilation was instituted. On review of his medical record, there is an extensive complex past medical history. He has stage IIIA nonsmall cell carcinoma and underwent right lower lobectomy robotically at an outside facility. He has received radiation and chemotherapy locally, as well as hormonal therapy. There is a question in the record of mesenteric metastasis. There is a history of chronic kidney disease, hypertension, gout, chronic obstructive pulmonary disease related to a 35-pack year smoking history, asthma, post-traumatic stress disorder (PTSD), gastroesophageal reflux disease, and he was transferred to [facility] on the of this month with chest pain possibly non-ST segment myocardial infarction. OBJECTIVE: VITAL SIGNS: At beside, his temperature is 97.1, pulse rate 82, respirations 20, blood pressure 101/59. HEENT: His pupils are equal and react to light. His oral mucosa is pink. There is a #8 endotracheal tube at 23 cm and orogastric tube in good position with minimal drainage. NECK: Supple without meningismus. There is no obvious jugular venous distention or carotid bruit. HEART: Regular without appreciable murmur. LUNGS: Breath sounds are coarse rhonchus throughout. CHEST: Symmetric, moves symmetrically. There is some dullness in the right base to percussion. ABDOMEN: Soft with intact bowel sounds. There is no palpable mass. The extremities are cool. Pulses are diminished, but palpable x4. DIAGNOSTIC STUDIES: His white cell count is 15.4, hemoglobin 12.3, hematocrit 37.1, platelet count 227,000. Differential white cell count shows 81% neutrophils and there are 9.4% eosinophils. His sodium is 135, potassium 3.7, chloride 99, CO2 of 30, BUN 24, creatinine 2.10, glucose 118. Lactic acid was 1.6. Calcium 8.9, bilirubin 0.3, AST 14, ALT 13. His CPK is 111, MB fraction 2.4. Troponin less than 0.02. ProBNP 116. Albumin is 4.3. I reviewed a CT scan of his chest showing evidence of previous right lower lobectomy, some scar tissue in the right lower lobe, and some other subtle scarring, but no new infiltrate. The formal report is pending. I reviewed the CT scan of his head, which appears symmetric to me. There is no obvious abnormality to my eye. Formal radiology report is pending. ASSESSMENT AND PLAN: The primary problem requiring critical attention is acute hypoxic respiratory failure. The specific etiology is unclear, although significant mucous plugging is suspected. We will initiate mechanical ventilation and follow arterial blood gases. Asthma and chronic obstructive pulmonary disease. There is a significant eosinophilia. Steroids will be given and aggressive nebulizer therapy. Nonsmall cell carcinoma status post resection, radiation, and chemotherapy. The patient was seen by medical oncology on 09/02. Indicates his last dose of immunotherapy was in January of this year. It is unclear what the plan of treatment is. Pending his response to acute interventions, we will consult with medical oncology once again. Chronic kidney disease. The patient is nonoliguric. There is urine in the Painting. We will closely monitor urine output and kidney function and make appropriate adjustments to any medications administered. Deep vein thrombosis (DVT) prophylaxis. The patient had a negative ultrasound on 08/28 of his legs and has had CT angiograms performed along the way, none showing pulmonary embolism. We will initiate subcutaneous heparin. Ulcer prophylaxis will be addressed with Protonix. Possible coronary artery disease. The patients troponins are not elevated. His EKG shows no acute findings. However, the records from his recent hospitalization for cardiac workup at [facility] are not available at this time. We will attempt to obtain them. Glycemic control will be addressed with fingerstick blood sugars and coverage. The patients condition is critical. Prognosis is guarded. 187 minutes was spent in the provision of bedside critical care and coordination, exclusive of procedure time. [facility]
--- NOTE | 2020-09-09 10:24 | RO ---
DATE OF OPERATION: 09/08/2020 PREOPERATIVE DIAGNOSIS: Mucus plugging. POSTOPERATIVE DIAGNOSIS: Mucus plugging. PROCEDURE PERFORMED: Fiberoptic bronchoscopy with transbronchoscopic washing and brushing. SURGEON: Anshu Thurston DO, [facility] [employer]RINKING MACHINE OPERATOR HELPER: ANESTHESIA: PROCEDURE NOTE: The patient was seen and the procedure explained to the patient and informed consent was obtained as best possible. Procedure was considered to be emergent. The patient was placed in the supine position. His endotracheal tube was sprayed with Cetacaine and fiberoptic bronchoscope was placed in through the endotracheal tube and into the trachea. The kumar was sharp. The left lung was examined in subsegmental fashion for evidence of tumor, ulcer, necrosis, vessel engorgement or mucosal irregularity. The mucosa was grossly edematous. There were some mucus plugs that were suctioned free. No other significant mucosa abnormalities were identified. There was mild hypertrophy of the mucus pits. The bronchoscope was retracted and reintroduced into the right stem bronchus. Right lung was examined was in similar fashion to the left. The anastomotic site at the takeoff of the right lower lobe just below the right middle lobe was well approximated, there did not appear to be any abnormal mucosa at this area, some mild hypertrophy of mucus pits and scattered mucus plugging throughout the remaining areas of the right lung. The area was lavaged with saline and specimen was taken for culture. Thereafter a plugged telescoping catheter was placed into the right upper lobe anterior segment, brushing was performed for microbiologic evaluation. The airways were once again suctioned free of any remaining blood or secretions and bronchoscope was retracted out through the endotracheal tube. There were no complications. The patient is left in unchanged condition in the intensive care unit. ALLY
[2020-09-09] MEDS ORDERED: FLUTICASONE PROP 0.05% NASAL SPRAY 16 GM (FLONASE) NARES PRN (14:15)
[2020-09-09] MEDS ORDERED: AZELASTINE 137MCG NASAL SPY 30 ML (ASTELIN) PRN (14:15)
[2020-09-09] MEDS ORDERED: ALBUTEROL 90 MCG/ACT 8GM HFA INHALER INH PRN (14:15)
[2020-09-09] MEDS: FOLIC ACID 1 MG TAB PO SCH (15:26)
[2020-09-09] MEDS: ISOSORBIDE MON. (IMDUR) 30 MG XR TAB PO SCH (15:28)
[2020-09-09] MEDS: CETIRIZINE (ZyrTEC) 10 MG TAB PO SCH (15:29)
[2020-09-09] MEDS: VITAMIN D 1,000 INTERNATIONAL UNITS TABLET PO SCH (15:29)
[2020-09-09] MEDS: METOPROLOL SUCC (TopROL XL) 100MG *XL* TAB PO SCH (15:29)
[2020-09-09] MEDS: **hydrALAZINE HCL** 25 MG TAB PO SCH ×2 (15:30→20:29)
--- NOTE | 2020-09-09 18:26 | IPNPDOC ---
Date Seen The patient was seen on 09/09/20. Progress Note SUBJECTIVE: Patient was successfully extubated today. Saturating 98% on room air without any conversational dyspnea, chest pain, pressure, tightness or cough. Per nursing, patient has been doing well all day. He worked with physical therapy and has no new complaints OBJECTIVE PHYSICAL EXAMINATION: VITAL SIGNS: Please see below. GENERAL: Sitting at the bedside, no distress. No use of respiratory accessory muscles, awake, alert, oriented 3 HEENT: No pallor, icterus, no JVD or thyromegaly CARDIOVASCULAR: S1, S2, sinus rhythm RESPIRATORY: Clear to auscultation bilaterally. No wheezing or rales ABDOMINAL: Soft, nontender, nondistended, positive bowel sounds EXTREMITIES: No cyanosis or clubbing LABORATORY DATA, IMAGING STUDIES, MICROBIOLOGY: Please see below. ASSESSMENT AND PLAN: 64-year-old -[place] male with history of 35 years of smoking with history of non-small cell lung cancer, stage IIIa, status post right lower lobectomy, status post radiation chemotherapy and hormonal therapy with questionable mesenteric metastasis, chronic kidney disease stage III, hypertension, gout, COPD, asthma, PTSD, reflux, was recently discharged from 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 Patient was e xtubated 09/09/2020 and transferred to Hospital service PROBLEMS: . Acute hypoxic respiratory failure requiring mechanical intubation, resolved. asthma, COPD with eosinophilic pneumonia History of stage IIIa non-small cell lung cancer status post right lower lobectomy. Acute metabolic encephalopathy, resolved Plan: Patient may be transferred to medical surgical floor. Continue on present management management. Patient is to have a prolonged course of steroids and outpatient follow-up with pulmonary associates. VS, I&O, 24H, [facility] Vital Signs/I&O Vital Signs Date Time Temp Pulse Resp B/P (MAP) Pulse Ox O2 Delivery O2 Flow Rate FiO2 09/09/20 16:00 98.1 101 16 146/85 (105) 98 Room Air 09/09/20 10:00 28 09/08/20 20:00 21.0 I&O- Last 24 Hours up to 6 AM 09/09/20 06:00 Intake Total 2555 ml Output Total 1705 ml Balance 850 ml Laboratory Data 24H LABS Laboratory Tests 2 09/08/20 18:33: Bedside Glucose (Misc Panel) 152H 09/09/20 00:12: Bedside Glucose (Misc Panel) 125H 09/09/20 04:39: Immature Granulocyte % (Auto) 0.4, Neutrophils (%) (Auto) 93.3H, Lymphocytes (%) (Auto) 5.1L, Monocytes (%) (Auto) 1.1, Eosinophils (%) (Auto) 0.0, Basophils (%) (Auto) 0.1, Neutrophils # (Auto) 12.4H, Lymphocytes # (Auto) 0.7L, Monocytes # (Auto) 0.2, Eosinophils # (Auto) 0.0, Basophils # (Auto) 0.0, Nucleated Red Blood Cells % (auto) 0.0, Anion Gap 8, Glomerular Filtration Rate > 60.0, Calcium Level 9.0, Phosphorus Level 3.5, Total Bilirubin 0.3, Aspartate Amino Transf (AST/SGOT) 9, Alanine Aminotransferase (ALT/SGPT) 11L, Alkaline Phosphatase 87, Lactate Dehydrogenase 169, Total Creatine Kinase 54, Total Protein 6.4, Albumin 3.4#, Albumin/Globulin Ratio 1.1, Triglycerides Level 89, Cholesterol Level 150 09/09/20 05:51: Blood Gas Bicarbonate Standard 23.4, Arterial Blood pH 7.436, Arterial Blood Partial Pressure CO2 34.2L, Arterial Blood Partial Pressure O2 83.4, Arterial Blood Total CO2 23.5, Arterial Blood HCO3 22.5, Arterial Blood Base Excess -1.2, Arterial Blood Oxygen Saturation 95.8 09/09/20 11:30: Bedside Glucose (Misc Panel) 101 09/09/20 17:09: Bedside Glucose (Misc Panel) 105 CBC/BMP Laboratory Tests 09/09/20 04:39 Microbiology Microbiology 09/08/20 Bronchial [place] Culture, Received Pending 09/08/20 Gram Stain - Final, Resulted 09/08/20 Bronchoalveolar Lavage Culture, Resulted Pending 09/08/20 Gram Stain - Final, Resulted 09/08/20 Sputum Culture, Resulted Pending 09/08/20 Respiratory Virus Panel (PCR) (RASHEED) - Final, Complete 09/08/20 Blood Culture - Preliminary, Resulted No growth after 24 hours . All specim... 09/08/20 Blood Culture - Preliminary, Resulted No growth after 24 hours . All specim... JENNI GROVER MD Sep 09, 2020 18:26
[2020-09-09] MEDS: ADVAIR HFA 115/21MCG INHALER INH SCH (20:00)
[2020-09-09] MEDS: DOCUSATE SODIUM 100 MG CAP PO SCH (20:26)
[2020-09-09] MEDS: MAGNESIUM OXIDE 400 MG TAB (MAG-OX) PO SCH (20:27)
[2020-09-09] MEDS ORDERED: HumaLOG INSULIN (NovoLOG) PER UNIT SC SCH (21:00)
[2020-09-09] MEDS ORDERED: ATORVASTATIN 20 MG TAB PO SCH (21:00)
[2020-09-09] MEDS ORDERED: ACETAMINOPHEN TAB 650MG DOSE (2X325MG) PO PRN (21:30)
[2020-09-09] MEDS ORDERED: CEPACOL LOZENGE PO PRN (21:30)
[2020-09-10] MEDS: IPRATROPIUM 0.5MG/ALBUTEROL 2.5MG INH SOL UD 3ML (DUONEB) NEB SCH ×4 (04:26→11:18)
[2020-09-10] MEDS: HEPARIN SOD (PORCINE) 5000UNITS/ML 1ML VIAL/SYRINGE SC SCH (05:54)
[2020-09-10 06:00] VITALS: BP 113/67
--- NOTE | 2020-09-10 06:55 | CCN ---
DATE: 09/09/2020 Dictated by Jeffrey Smith DO, Internal Medicine Resident PGY-3 in conjunction with attending Anshu Thurston M.D. of Pulmonary Critical Care Medicine. SUBJECTIVE: Mr. Tee was seen and examined this morning. He was previously intubated for acute respiratory failure. Currently this morning, he has remained on minimal sedation and was awake and alert with purposeful movement. The patient was placed on a weaning trial successfully and he was extubated this morning. The patient is currently on room air. He is talking. He does not appear altered in any way. There have been no adverse events were reported overnight. On further questioning regarding the patients past medical history, on presentation he was noted to be altered. The exact etiology of this is still unclear. This morning after extubation, he does appear alert and oriented. On further questioning, he states that he has had recent seizures; however, states he does not follow with a neurologist that he knows of. He was started on Keppra and it is unclear if his altered mental status was related to a postictal state. However, according to the previous records on his presentation, he did not appear to be having a seizure and did not appear postictal. In addition, the patient is on multiple medicines although, he states that he is unsure what really happened. He states that he was just sitting there and all of a sudden felt really short of breath, which is what originally brought him into the emergency room OBJECTIVE: VITAL SIGNS: Temperature 96.8, pulse 80, respiratory rate 21, blood pressure 111/69, pulse oximetry 98% on room air. GENERAL: The patient is awake, alert, and oriented. He does not appear in any acute distress. He is status post extubation. He appears comfortable. HEENT: Atraumatic, normocephalic. His eyes are nonicteric. Trachea is midline. Mucous membranes are pink and moist. Dentition is fair. CARDIOVASCULAR: Normal S1, S2. Regular rate and rhythm. No clicks, rubs, or murmurs. PULMONARY: The patient has clear vesicular breath sounds bilaterally somewhat diminished in the bases. There are no wheezes, rhonchi, or rales noted. ABDOMEN: Soft, nondistended, and nontender. Normoactive bowel sounds throughout. EXTREMITIES: Full and equal pulses bilateral upper and lower extremities. There is no edema. LABORATORY STUDIES: Hematology with white blood cell 13.3, hemoglobin 11.5, hematocrit 33.8, platelet count 270,000. Chemistry: Sodium 138, potassium 3.2, chloride 105, carbon dioxide 25, BUN 22, creatinine 1.37, fasting glucose 158. Calcium 9.0, phosphorus 3.5, total bilirubin 0.3, AST 9, ALT 11, alkaline phosphatase 7, lactate dehydrogenase 169, total creatinine kinase 54. Arterial blood gas pH 7.43, pCO2 of 34.2, pO2 of 83.4. IMAGING: From 09/09/2020, demonstrating a small right pleural effusion and right basilar atelectasis improved from prior examination. ASSESSMENT AND PLAN: Mr. Tee is a 64-year-old male with a history of stage IIIA nonsmall cell carcinoma who is status post right lower lobectomy from an outside hospital. He is status post radiation and chemotherapy and hormonal therapy as well. He presented to the [facility] Emergency Department with altered mental status and shortness of breath. The patient was felt to be unable to clear his airway and had been intubated and placed on mechanical ventilation. This morning, he has improved significantly and was successfully extubated. 1. Acute hypoxic respiratory failure. The patient presented with acute hypoxic respiratory failure, which was felt to be of unknown etiology. At first, the patient presented with altered mental status and was felt to be unable to clear his airway; however, he was hypoxic at the time. The patient has stated that he has had several visits to the emergency room with similar findings. Of interest, the patients laboratory studies do show significant eosinophilia also during his previous ER admissions for shortness of breath. 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 The patient did receive bedside bronchoscopy on September 08, with bronchiolar lavage and sputum and gram stain cultures, which are currently pending. At this point in time, the patient is currently on room air and not requiring any supplemental oxygen. We will continue him on 20 mg of prednisone oral and recommend to continue this and follow-up outpatient with pulmonary medicine for likely a long taper of four to six weeks. 2. Asthma and chronic obstructive pulmonary disease. The patient has stated he has a history of asthma and has had pulmonary function [facility]PFTs) [facility] There is eosinophilia present with high eosinophil percentages. He has been given steroids and nebulizer therapy and has improved. His acute respiratory failure may have been secondary to an asthma exacerbation. 3. Acute kidney injury on chronic kidney disease. The patient presented with a creatinine of 2.1, baseline about 1.2 to 1.3. This seems to have resolved with intravenous (IV) fluid hydration. We have avoided all nephrotoxic agents. The patient is currently making urine. We will continue to monitor. 4. Altered mental status. At this point in time, the patients cause of altered mental status is not known. Apparently on presentation, he was somewhat agitated possibly secondary to mild hypercarbia from his inability to protect his airway, although unlikely. Possibly postictal state, although there has been no noted witnessed seizure recently. The patient did have a CT scan of the head for a possible metastatic disease, as well as possible stroke; however, imaging was otherwise negative for any acute findings. At this point in time, the patient has a normal mentation. We will continue to monitor. 5. Anxiety/post-traumatic stress disorder (PTSD). Patient is noted to have a history of anxiety and PTSD. He takes doxepin; currently holding his medications. 6. Hypertension. Patient takes metoprolol, Imdur, and hydralazine. Hydrochlorothiazide and furosemide currently on hold as the patient has been normotensive. 7. History of coronary artery disease. Patient has a history of coronary artery disease. He had a recent cardiac catheterization at [facility] which was apparently negative for any findings, although there is no record currently available. He is on Imdur, hydralazine, furosemide, hydrochlorothiazide, and metoprolol. 8. Deep vein thrombosis (DVT) prophylaxis. We will continue heparin. 9. Ulcer prophylaxis. Will continue Protonix p.o. Dr. Thurston: I was present for the garcia components of the above outlined history and physical and participated in the assessment and management decisions. There is considerably less cough and secretion production today. I am concerned that the eosinophilia which has been demonstrated in past may suggest a new exposure that could be contributory, though the patient denies any. He follows with pulmonary through the [facility] in [place] and should be reconnected there after discharge. I appreciate the hospitalists agreeing to assume his care. DISPOSITION: The patient has been successfully extubated. He appears to be at baseline. He is not requiring any supplemental oxygen. At this point in time, we will transfer care to hospitalist medicine for further management and likely downgrade to progressive care unit (PCU) status. ALLY
[2020-09-10] MEDS: HumaLOG INSULIN (NovoLOG) PER UNIT SC SCH ×2 (07:30→12:00)
[2020-09-10] MEDS ORDERED: PRED20TA PO (07:31)
[2020-09-10] MEDS: ADVAIR HFA 115/21MCG INHALER INH SCH (07:34)
[2020-09-10 07:35] LABS: BASO % 0.1 % (0.0-1.0); EOS % 0.1 % (0.0-3.0); HEMATOCRIT 32.7 % (42.0-52.0); HEMOGLOBIN 10.8 g/dl (13.5-17.5); LYMPH # 1.4 10^3/uL (1.5-5.0); MEAN CORPUSCULAR HEMOGLOBIN 29.9 pg (27.0-33.0); MEAN CORPUSCULAR VOLUME 90.6 fl (80.0-96.0); MONO # 0.5 10^3/uL (0.0-0.8); NEUTROPHILS # 9.5 10^3/uL (1.5-8.5); NEUTROPHILS % 83.1 % (36.0-66.0); PLATELET COUNT, AUTOMATED 283 10^3/uL (150-450); RED BLOOD COUNT 3.61 10^6/uL (4.30-6.10); WHITE BLOOD COUNT 11.4 10^3/uL (4.0-10.0)
[2020-09-10 08:11] LABS: ALBUMIN 3.4 GM/DL (3.2-5.2); ALT/SGPT 11 U/L (12-78); BILIRUBIN,TOTAL 0.5 MG/DL (0.2-1.0); BLOOD UREA NITROGEN 27 MG/DL (7-18); CALCIUM LEVEL 9.3 MG/DL (8.8-10.2); CARBON DIOXIDE LEVEL 25 MEQ/L (21-32); CHLORIDE LEVEL 108 MEQ/L (98-107); CHOLESTEROL LEVEL 161 MG/DL (< 200); CPK CREATINE PHOSPHOKINASE 43 U/L (39-308); CREATININE FOR GFR 1.43 MG/DL (0.70-1.30); GLOMERULAR FILTRATION RATE > 60.0 (>49); GLUCOSE, FASTING 86 MG/DL (70-100); LDH LACTATE DEHYDROGENASE 163 U/L (87-241); MAGNESIUM LEVEL 2.5 MG/DL (1.8-2.4); PHOSPHORUS LEVEL 3.1 MG/DL (2.5-4.9); POTASSIUM SERUM 3.9 MEQ/L (3.5-5.1); SODIUM LEVEL 141 MEQ/L (136-145); TOTAL PROTEIN 6.3 GM/DL (6.4-8.2); TRIGLYCERIDES LEVEL 81 MG/DL (<150)
[2020-09-10] MEDS: MAGNESIUM OXIDE 400 MG TAB (MAG-OX) PO SCH (08:35)
[2020-09-10] MEDS: DOCUSATE SODIUM 100 MG CAP PO SCH (08:35)
[2020-09-10] MEDS: VITAMIN D 1,000 INTERNATIONAL UNITS TABLET PO SCH (08:35)
[2020-09-10 08:37] VITALS: BP 118/72
[2020-09-10] MEDS: ISOSORBIDE MON. (IMDUR) 30 MG XR TAB PO SCH (08:37)
[2020-09-10] MEDS: FOLIC ACID 1 MG TAB PO SCH (08:38)
[2020-09-10] MEDS: CETIRIZINE (ZyrTEC) 10 MG TAB PO SCH (08:38)
[2020-09-10] MEDS: **hydrALAZINE HCL** 25 MG TAB PO SCH (08:38)
[2020-09-10] MEDS: METOPROLOL SUCC (TopROL XL) 100MG *XL* TAB PO SCH (08:39)
[2020-09-10] MEDS ORDERED: predniSONE 20 MG TAB PO SCH (09:00)
[2020-09-10] MEDS ORDERED: PANTOPRAZOLE 40MG TAB (PROTONIX) PO SCH (09:00)
[2020-09-10] MEDS ORDERED: ASPIRIN 81 MG ENTERIC TAB PO SCH (09:00)
--- NOTE | 2020-09-10 10:54 | DS.PDOC ---
Discharge Summary General Date of Admission Sep 08, 2020 at 08:48 Date of Discharge 09/10/20 Discharge Summary DISCHARGE DIAGNOSES: Acute hypoxic respiratory failure requiring mechanical intubation, resolved. asthma, COPD eosinophilic pneumonia History of stage IIIa non-small cell lung cancer status post right lower lobectomy. Acute metabolic encephalopathy, resolved PROCEDURES: INTUBATION AND MECHANICAL VENTILATION Right internal jugular central venous catheter placement. Nasogastric tube placement DISCHARGE MEDICATIONS: SEE BELOW. DISCHARGE INSTRUCTIONS: [facility] Dr. Thurston follow-up appointment within 1 week. primary care physician appointment within one week. 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 Patient was extubated 09/09/2020 and transferred to Hospital service.Patient WAS MEDICALLY STABLE AND WAS transferred to medical surgical floor. . He was Continued on present prednisone 20 mg daily, and is to have a prolonged course of steroids with outpatient follow-up with pulmonary assoc PHYSICAL EXAMINATION: VITAL SIGNS: Please see below. GENERAL: Sitting at the bedside, no distress. No use of respiratory accessory muscles, awake, alert, oriented 3 HEENT: No pallor, icterus, no JVD or thyromegaly CARDIOVASCULAR: S1, S2, sinus rhythm RESPIRATORY: Clear to auscultation bilaterally. No wheezing or rales ABDOMINAL: Soft, nontender, nondistended, positive bowel sounds EXTREMITIES: No cyanosis or clubbing LABORATORY DATA, IMAGING STUDIES, MICROBIOLOGY: Please see below. Exam: CT Chest Without Contrast; Diagnostic Exam date and time: 09/08/2020 7:57 AM Age: 64 years old Clinical indication: Other: Acute hypoxic respiratory failure; Additional info: AMS, acute hypoxic respiratory failure TECHNIQUE: Imaging protocol: Diagnostic computed tomography of the chest without contrast. 3D rendering (Not supervised by radiologist): MIP and/or 3D reconstructed images were created by the technologist. Radiation optimization: All CT scans at this facility use at least one of these dose optimization techniques: automated exposure control; mA and/or kV adjustment per patient size (includes targeted exams where dose is matched to clinical indication); or iterative reconstruction. COMPARISON: OT CT ANGIO CHEST 08/28/2020 11:59 AM FINDINGS: Tubes, catheters and devices: NG tube is terminating in the stomach. Endotracheal tube in mid trachea, in good position. Lungs: Status post partial right lower lobectomy with paramediastinal fibrosis in the right upper lobe, not significantly changed from prior study. Stable right middle lobe 4 mm nodule. Mucous plugging and atelectasis in the right middle lobe. Left lung is relatively clear. Pleural space: Unremarkable. No pneumothorax. No pleural effusion. Heart: Unremarkable. No cardiomegaly. No pericardial effusion. Mediastinal space: Mild mediastinal shift to the large 8 secondary to volume loss. Aorta: Mild atherosclerosis of the aortic arch. Veins: Right IJ line is terminating in the SVC. Lymph nodes: Subcentimeter few mediastinal lymph nodes. These are not pathologically enlarged by CT criteria. Diaphragm: Elevation of right hemidiaphragm. Bones/joints: Demineralization of the bones with degenerative changes. Soft tissues: Unremarkable. IMPRESSION: Status post partial right lower lobectomy with paramediastinal fibrosis in the right upper lobe, not significantly changed from prior study. Stable right middle lobe 4 mm nodule. Mucous plugging and atelectasis in the right middle lobe. Left lung is relatively clear. Electronically signed by: Susie Lee On 09/08/2020 08:23:20 AM Exam: CT Head Without Contrast Exam date and time: 09/08/2020 7:57 AM Age: 64 years old Clinical indication: Altered mental status/memory loss; Confusion or disorientation; Additional info: AMS, acute hypoxic respiratory failure TECHNIQUE: Imaging protocol: Computed tomography of the head without contrast. Radiation optimization: All CT scans at this facility use at least one of these dose optimization techniques: automated exposure control; mA and/or kV adjustment per patient size (includes targeted exams where dose is matched to clinical indication); or iterative reconstruction. COMPARISON: CT Head without contrast 04/03/2020 1:08 PM FINDINGS: Brain: There is no acute intracranial abnormality. Mild prominence of ventricles and sulci representing volume loss. Mild small vessel ischemic changes are seen. There is no mass, midline shift, or mass effect. White-white matter differentiation is preserved. There is no evidence of hemorrhage. There is no extra-axial fluid collection. Basal cisterns are patent. Cerebral ventricles: See "Brain" finding. Bones/joints: The visualized osseous structures are unremarkable. Paranasal sinuses: Extensive mucosal thickening of the visualized sinuses. Mastoid air cells: Mastoid air cells are clear. Soft tissues: Unremarkable. IMPRESSION: 1. Mild volume loss and small vessel ischemic changes. . 2. No acute intracranial abnormality. 3. Extensive sinus disease likely chronic. Electronically signed by: Susie Lee On 09/08/2020 08:13:18 AM TIME SPENT ON DISCHARGE 30 MINUTES Vital Signs/I&Os Vital Signs Date Time Temp Pulse Resp B/P (MAP) Pulse Ox O2 Delivery O2 Flow Rate FiO2 09/10/20 08:39 88 09/10/20 08:37 118/72 09/10/20 06:00 98.4 16 96 Room Air 09/09/20 10:00 28 09/08/20 20:00 21.0 I&O- Last 24 Hours up to 6 AM 09/10/20 06:00 Intake Total 1407.6 ml Output Total 775 ml Balance 632.6 ml Laboratory Data Labs 24H Laboratory Tests 2 09/09/20 11:30: Bedside Glucose (Misc Panel) 101 09/09/20 17:09: Bedside Glucose (Misc Panel) 105 09/09/20 20:21: Bedside Glucose (Misc Panel) 84 09/09/20 22:15: Bedside Glucose (Misc Panel) 76L 09/10/20 07:12: Immature Granulocyte % (Auto) 0.7, Neutrophils (%) (Auto) 83.1H, Lymphocytes (%) (Auto) 12.0L, Monocytes (%) (Auto) 4.0, Eosinophils (%) (Auto) 0.1, Basophils (%) (Auto) 0.1, Neutrophils # (Auto) 9.5H, Lymphocytes # (Auto) 1.4L, Monocytes # (Auto) 0.5, Eosinophils # (Auto) 0.0, Basophils # (Auto) 0.0, Nucleated Red Blood Cells % (auto) 0.0, Anion Gap 8, Glomerular Filtration Rate > 60.0, Calc ium Level 9.3, Phosphorus Level 3.1, Magnesium Level 2.5H, Total Bilirubin 0.5#, Aspartate Amino Transf (AST/SGOT) 7, Alanine Aminotransferase (ALT/SGPT) 11L, Alkaline Phosphatase 80, Lactate Dehydrogenase 163, Total Creatine Kinase 43, Total Protein 6.3L, Albumin 3.4, Albumin/Globulin Ratio 1.2, Triglycerides Level 81, Cholesterol Level 161 09/10/20 07:45: Bedside Glucose (Misc Panel) 100 CBC/BMP Laboratory Tests 09/10/20 07:12 FSBS Laboratory Tests Test 09/09/20 11:30 09/09/20 17:09 09/09/20 20:21 09/09/20 22:15 Range/Units Bedside Glucose (Misc Panel) 101 105 84 76 80-115 MG/DL Test 09/10/20 07:45 Range/Units Bedside Glucose (Misc Panel) 100 80-115 MG/DL Microbiology Microbiology 09/08/20 Bronchial [place] Culture - Final, Complete 09/08/20 Gram Stain - Final, Resulted 09/08/20 Bronchoalveolar Lavage Culture - Preliminary, Resulted Streptococcus Group G 09/08/20 Gram Stain - Final, Resulted 09/08/20 Sputum Culture - Preliminary, Resulted Streptococcus Group G 09/08/20 Respiratory Virus Panel (PCR) (RASHEED) - Final, Complete 09/08/20 Blood Culture - Preliminary, Resulted No Growth after 48 hours. All Specime... 09/08/20 Blood Culture - Preliminary, Resulted No Growth after 48 hours. All Specime... Discharge Medications Scheduled Allopurinol (Zyloprim) 300 Mg Tablet, 300 MG PO DAILY, (Reported) Aspirin (Aspirin EC) 81 Mg Tablet.dr, 81 MG PO DAILY, (Reported) Atorvastatin Calcium (Atorvastatin Calcium) 20 Mg Tablet, 20 MG PO QHS, (Reported) Cetirizine HCl (Cetirizine HCl) 10 Mg Tab, 10 MG PO DAILY, (Reported) Cholecalciferol (Vitamin D3) (Vitamin D3) 1,000 Unit Tablet, 1,000 UNITS PO DAILY, (Reported) Docusate Sodium (Docusate Sodium) 100 Mg Capsule, 100 MG PO BID, (Reported) Doxepin HCl (Doxepin HCl) 25 Mg Cap, 75 MG PO DAILY, (Reported) Doxepin HCl (Doxepin HCl) 25 Mg Capsule, 50 MG PO QHS, (Reported) Fluoride (Sodium) (Prevident 5000 Plus) 51 Gm Cream..g., 1 DOSE TEETH ASDIRECTED, (Reported) Folic Acid (Folic Acid) 1 Mg Tablet, 1 MG PO DAILY, (Reported) Furosemide (Furosemide) 40 Mg Tablet, 40 MG PO BID, (Reported) Hydralazine HCl (Hydralazine HCl) 25 Mg Tablet, 25 MG PO TID, (Reported) Hydrochlorothiazide (Hydrochlorothiazide) 12.5 Mg Tablet, 12.5 MG PO DAILY, (Reported) Isosorbide Mononitrate (Isosorbide Mononitrate ER) 30 Mg Tab.er.24h, 30 MG PO DAILY, (Reported) Levetiracetam (Levetiracetam) 250 Mg Tablet, 250 MG PO QHS, (Reported) Magnesium Oxide (Magnesium Oxide) 400 Mg Tablet, 400 MG PO BID, (Reported) Metoprolol Succinate (Metoprolol Succinate) 200 Mg Tab.er.24h, 200 MG PO DAILY, (Reported) Omeprazole (Omeprazole) 20 Mg Cap, 20 MG PO BID, (Reported) Prednisone (Prednisone) 20 Mg Tablet, 20 MG PO DAILY Salmeterol/Fluticasone (Advair 250-50 Diskus) 1 Each Blst.w.dev, 1 PUFF INH BID, (Reported) Scheduled PRN Albuterol Sulfate (Ventolin Hfa) 108 Mcg/Act Aer, 2 PUFFS INH Q2H PRN for SHORTNESS OF BREATH, (Reported) Azelastine HCl (Azelastine HCl) 0.1 % Spr, 2 SPRAYS NA BID PRN for RUNNY NOSE, (Reported) Clonazepam (Clonazepam) 0.5 Mg Tablet, 0.5 MG PO BID PRN for ANXIETY/AGITATION, (Reported) Fluticasone Propionate (Fluticasone Propionate) 16 Gm [place].susp, 1 SPRAY NARES BID PRN for CONGESTION, (Reported) Polyethylene Glycol 3350 (Miralax) 17 Gm Powd.pack, 17 GM PO DAILY PRN for CONSTIPATION, (Reported) Allergies Coded Allergies: NSAIDS (Non-Steroidal Anti-Inflamma (Verified Allergy, Severe, THROAT SWELLING, 09/05/20) Sulfa (Sulfonamide Antibiotics) (Verified Allergy, Severe, CANT BREATHE, 09/05/20) amitriptyline (Verified Allergy, Severe, THROAT SWELLING, 09/05/20) cefuroxime (Verified Allergy, Severe, THROAT SWELLING, 09/05/20) diltiazem (Verified Allergy, Severe, THROAT SWELLING, 09/05/20) fosinopril (Verified Allergy, Severe, THROAT SWELLING, 09/05/20) gabapentin (Verified Allergy, Severe, THROAT SWELLING, 09/05/20) losartan (Verified Allergy, Severe, THROAT SWELLING, 09/05/20) ibuprofen (Verified Allergy, Mild, rash, itching, 09/05/20) JENNI GROVER MD Sep 10, 2020 10:54
== END 2020-09-10 14:20 | disposition home or self-care (01) | DRG 208 ==
LOC: M ED 04:40 → M ED INP 08:48 → ENRESERV 09:11 → M ICU 09:40 → M MS5PR 09-09 22:05
PROVIDERS: ADMIT Internal Medicine Pulmonary Disease; ATTEND General Practice
PROC: 5A1945Z Respiratory Ventilation, 24-96 Consecutive Hours (ICD-10-PCS; principal; 2020-09-08)
PROC: 0BB48ZX Excision of Right Upper Lobe Bronchus, Via Natural or Artificial Opening Endoscopic, Diagnostic (ICD-10-PCS; 2020-09-08)
PROC: 0B948ZX Drainage of Right Upper Lobe Bronchus, Via Natural or Artificial Opening Endoscopic, Diagnostic (ICD-10-PCS; 2020-09-08)
DX: J96.21 Acute and chronic respiratory failure with hypoxia (principal); G93.41 Metabolic encephalopathy; J82.81 Chronic eosinophilic pneumonia; J45.909 Unspecified asthma, uncomplicated; Z85.118 Personal history of other malignant neoplasm of bronchus and lung; N18.30 Chronic kidney disease, stage 3 unspecified; I12.9 Hypertensive chronic kidney disease with stage 1 through stage 4 chronic kidney disease, or unspecified chronic kidney disease; M10.9 Gout, unspecified; K21.9 Gastro-esophageal reflux disease without esophagitis; F43.10 Post-traumatic stress disorder, unspecified; Z79.82 Long term (current) use of aspirin; Z79.899 Other long term (current) drug therapy; Z88.6 Allergy status to analgesic agent; Z88.2 Allergy status to sulfonamides; Z88.8 Allergy status to other drugs, medicaments and biological substances; F41.9 Anxiety disorder, unspecified

== ENCOUNTER 2020-09-12 14:33 | Emergency (ER) | payer MEDICARE, OTHER ==
[~2020-09-12] VITALS: Ht 190.5 cm; Wt 95.5 kg
[~2020-09-12 14:33] MED LIST changes: +DOCU100C16 PO; +LEVE250T5 PO
[2020-09-12] MEDS ORDERED: dexameTHASONE 20MG/5ML VIAL (J1100 PER 1MG) IV ONE (15:00)
--- NOTE | 2020-09-12 15:25 | REP ---
INDICATION: DYSPNEA/COUGH COMPARISON: 09/09/2020 TECHNIQUE: Portable AP view of the chest FINDINGS: Chronic changes including elevation of the right hemidiaphragm are again noted and similar to prior examination. Very minimal increased bibasilar atelectasis and possible small right pleural effusion are again suspected. No pneumothorax. Visualized portions of the cardiac silhouette are normal. [id number] identified with tip in the SVC/right atrium. Skeletal structures are intact IMPRESSION: Cannot exclude minimal and mildly increased bibasilar atelectasis and small left pleural effusion <Electronically signed by Mirza Sommer > 09/12/20 1524
[2020-09-12] MEDS: COMBIVENT RESPIMAT 100-20MCG INHALER 4GM INH SCH ×3 (15:31→16:22)
[2020-09-12 16:18] LABS: BASO % 0.1 % (0.0-1.0); EOS # 0.1 10^3/uL (0.0-0.5); EOS % 0.8 % (0.0-3.0); HEMOGLOBIN 10.6 g/dl (13.5-17.5); LYMPH % 9.9 % (24.0-44.0); MEAN CORPUSCULAR HEMOGLOBIN 29.5 pg (27.0-33.0); MEAN CORPUSCULAR HGB CONC 32.1 g/dl (32.0-36.5); MEAN CORPUSCULAR VOLUME 91.9 fl (80.0-96.0); MONO # 0.2 10^3/uL (0.0-0.8); MONO % 1.7 % (0.0-5.0); NEUTROPHILS # 8.5 10^3/uL (1.5-8.5); PLATELET COUNT, AUTOMATED 281 10^3/uL (150-450); RED BLOOD COUNT 3.59 10^6/uL (4.30-6.10); WHITE BLOOD COUNT 9.8 10^3/uL (4.0-10.0)
--- NOTE | 2020-09-12 16:20 | ECGEPIP ---
[facility] - ED Test Date: 2020-09-12 Pat Name: MEENA KELLY Department: Room: - Gender: Male [employer] Supervisor: RADHA : [id number] Requested By: CHING Otero Order Number: [id number] Reading MD: Jacque Wright Measurements Intervals [place] Rate: 89 P: 23 MS: 165 QRS: -6 QRSD: 96 T: 64 QT: 327 QTc: 400 Interpretive Statements SINUS RHYTHM MODERATE T-WAVE ABNORMALITY, CONSIDER ANTERIOR ISCHEMIA, COMPARED 09/08/20 QTC SHORTER COMPARED 09/08/20 Electronically Signed on 09-12-2020 16:20:27 EST by Jacque Wright
[2020-09-12 16:56] LABS: ALBUMIN 3.4 GM/DL (3.2-5.2); ALT/SGPT 28 U/L (12-78); BILIRUBIN,DIRECT 0.1 MG/DL (0.0-0.2); BILIRUBIN,TOTAL 0.4 MG/DL (0.2-1.0); BLOOD UREA NITROGEN 20 MG/DL (7-18); CALCIUM LEVEL 9.1 MG/DL (8.8-10.2); CARBON DIOXIDE LEVEL 28 MEQ/L (21-32); CHLORIDE LEVEL 106 MEQ/L (98-107); CPK CREATINE PHOSPHOKINASE 46 U/L (39-308); CREATININE FOR GFR 1.18 MG/DL (0.70-1.30); GLOMERULAR FILTRATION RATE > 60.0 (>49); GLUCOSE, FASTING 71 MG/DL (70-100); MB/CK RELATIVE INDEX 2.17 (< OR =4); NT-PRO BNP 359 PG/ML (<125); POTASSIUM SERUM 3.9 MEQ/L (3.5-5.1); SODIUM LEVEL 139 MEQ/L (136-145); THYROID STIMULATING HORMONE 0.648 uIU/ML (0.358-3.740); TOTAL PROTEIN 6.9 GM/DL (6.4-8.2); TROPONIN I < 0.02 NG/ML (< 0.10)
[2020-09-12 18:15] VITALS: BP 149/97
[2020-09-12] MEDS ORDERED: PRED10TA2 PO (18:22)
--- NOTE | 2020-09-13 06:31 | ED PDOC ---
Post-Departure Follow-Up dr huynh faxed formal report of cxr for fu Tiffanie Batista MD Sep 13, 2020 06:31
== END 2020-09-12 18:44 | disposition home or self-care (01) ==
LOC: M ED 14:33
DX: R06.1 Stridor (principal); R91.8 Other nonspecific abnormal finding of lung field; C34.32 Malignant neoplasm of lower lobe, left bronchus or lung; K21.9 Gastro-esophageal reflux disease without esophagitis; J44.9 Chronic obstructive pulmonary disease, unspecified; Z87.891 Personal history of nicotine dependence; Z88.1 Allergy status to other antibiotic agents; Z88.2 Allergy status to sulfonamides; Z88.6 Allergy status to analgesic agent; Z88.8 Allergy status to other drugs, medicaments and biological substances; Z79.899 Other long term (current) drug therapy; Z79.51 Long term (current) use of inhaled steroids; Z79.82 Long term (current) use of aspirin
CPT/HCPCS: 36600; 71045; 80048; 80076; 82550; 82553; 82803; 83880; 84443; 84484; 85025; 87040; 93005; 93041; 94640; 94760; 96374; 99285; J1100; U0002

== ENCOUNTER → 2020-10-07 | Outpatient (CLI) | payer OTHER ==
[~2020-10-07] MED LIST changes: +GASTROGRAFIN SOLUTION 30ML (Q9963) As Ordered ONE; +ISOVUE-370 76% 100ML VIAL As Ordered ONE; +PRED10TA2 PO
--- NOTE | 2020-10-07 18:40 | REP ---
INDICATION: LUNG CA. COMPARISON: 05/08/2020 TECHNIQUE: Axial contrast-enhanced images from the lung bases to the pubic symphysis using 100 cc Isovue 370 intravenous contrast material. Delayed images of the abdomen as well as coronal and sagittal reformations obtained. This CT examination was performed using the following dose reduction techniques: Automated exposure control, adjustment of mA and/or kv according to the patient's size, and the use of iterative reconstruction technique. FINDINGS: Pleuroparenchymal changes involving the visualized right lung base remains stable. Liver, spleen, pancreas, gallbladder, and bilateral adrenal glands are normal. Small stable bilateral renal cortical cysts are again noted. The enteric system including stomach, small, and large bowel appears relatively normal. No evidence for obstruction or acute inflammatory process. Pelvis demonstrates normal bladder and age-appropriate prostate/seminal vesicles. No ascites. No free air. No intraperitoneal or retroperitoneal adenopathy. Abdominal aorta and vasculature appear normal. Musculoskeletal structures are intact and without acute osseous abnormality. IMPRESSION: No acute abdominopelvic pathology appreciated. <Electronically signed by Mirza Sommer > 10/07/20 [id number]
== END ==
LOC: M RAD 16:17
PROVIDERS: ATTEND Internal Medicine Medical Oncology
DX: C34.91 Malignant neoplasm of unspecified part of right bronchus or lung (principal)
CPT/HCPCS: 74177; Q9963; Q9967

== ENCOUNTER → 2020-10-09 | Outpatient (CLI) | payer OTHER ==
[~2020-10-09] MED LIST changes: -GASTROGRAFIN SOLUTION 30ML (Q9963) As Ordered ONE; -ISOVUE-370 76% 100ML VIAL As Ordered ONE
--- NOTE | 2020-10-09 09:43 | REP ---
INDICATION: OTHER FECAL ABNORMALITIES COMPARISON: 09/12/2020 TECHNIQUE: PA and lateral. FINDINGS: [id number] in stable position. Right-sided pleuroparenchymal changes including volume loss, oligemia and scarring remains stable. Left hemithorax is relatively well aerated and clear. Visualized portions of the mediastinum and cardiac silhouette are unchanged. IMPRESSION: No significant change from prior examination. <Electronically signed by Mirza Sommer > 10/09/20 0974
== END ==
LOC: M RAD 09:14
PROVIDERS: ATTEND Internal Medicine Medical Oncology
DX: C34.91 Malignant neoplasm of unspecified part of right bronchus or lung (principal); R19.8 Other specified symptoms and signs involving the digestive system and abdomen

== ENCOUNTER 2020-10-30 01:41 | Emergency (ER) | payer OTHER ==
[~2020-10-30] VITALS: Ht 203.2 cm; Wt 100.0 kg
--- OUTSIDE RECORDS SUMMARY | 2020-10-30 01:47 | CCD | Summary of Care ---
Author Author [facility] Address Unknown Phone Unavailable Care Team Providers Care Print Production Manager Name Role Phone Sapphire Jackman MD PCP Reason for Visit * Auth/Cert Referred By Contact Referred To Contact Status Reason Specialty Diagnoses / Procedures Diagnoses NSTEMI NSTEMI (non-ST elevated myocardial infarction) Encounter Details Care Team Description Date Type Department Mirza Leigh MD [address] [place] [address] [place], [place] [id number] José Burnham MD [address] [facility] [address] [place] [address] [phone] NSTEMI (non-ST elevated myocardial infar ction) 08/28/[address] CARDIOTHORACIC - Encounter [address] 08/30/2020 [place] [address] Allergies Comments Active Allergy Reactions Severity Noted Date Amitriptyline Swelling 02/21/2019 Unknown reaction Cefuroxime Axetil 02/21/2019 Unknown reaction Fosinopril 02/21/2019 Gabapentin Swelling High 02/21/2019 Losartan Swelling 02/21/2019 Can't remember reaction, started 6 years ago on chemo Nsaids 02/08/2019 Pulmonary edema, facial and throat edema Sulfa Antibiotics Other (See 02/08/2019 Comments) documented as of this encounter (statuses as of 08/30/2020) Medications End Date Status Medication Sig Dispensed Refills Start Date Active albuterol (PROVENTIL Inhale 2 0 HFA;VENTOLIN HFA) 108 (90 puffs into Base) MCG/ACT inhaler the lungs every 2 (two) hours as needed for Wheezing Active allopurinol (ZYLOPRIM) Take 300 mg 0 100 MG tablet by mouth daily Active clonazePAM (KLONOPIN PO) Take 0.5 mg 0 by mouth Two Times Daily Does not recall dose, nomed list Active doxepin (SINEQUAN) 25 MG Take by mouth 0 capsuleIndications: Three Depression capsules (75MG) every morning and two capsules (50MG) every night.Indicat ions: Depression Active fluticasone (FLONASE) 50 1 spray by 0 MCG/ACT nasal spray Nasal route Two Times Daily Active Fluticasone-Salmeterol Inhale 1 puff 0 (ADVAIR DISKUS) 250-50 into the MCG/DOSE AEPB lungs Two Times Daily Active aspirin 81 MG tablet Take 81 mg by 0 mouth daily Active azelastine (ASTELIN) 0.1 2 sprays by 0 % nasal spray Nasal route Two Times Daily Use in each nostril as directed Active Vitamin D3 Take 1,000 0 (CHOLECALCIFEROL) 1000 Units by units tablet mouth daily Active diphenhydrAMINE Take 100 mg 0 (BENADRYL) 50 MG capsule by mouth nightly Active omeprazole (PRILOSEC) 20 Take 20 mg by 0 MG capsule mouth Two Times Daily Active Cetirizine HCl 10 MG Oral Take 10 mg by 0 Tablet (ZYRTEC) mouth daily Active Folic Acid 1 MG Oral Take 1 mg by 0 Tablet (FOLVITE) mouth daily Active Furosemide 40 MG Oral Take 40 mg by 0 Tablet (LASIX) mouth Two Times Daily 08/29/2021 Active Atorvastatin Calcium 20 Take 1 tablet 30 tablet MG Oral Tablet (LIPITOR) by mouth 0 every evening 08/29/2021 Active hydrALAZINE HCl 25 MG Take 1 tablet 90 tablet Oral Tablet (APRESOLINE) by mouth 0 every 8 (eight) hours 08/29/2021 Active hydroCHLOROthiazide 12.5 Take 1 tablet 30 tablet MG Oral Tablet by mouth 0 (HYDRODIURIL) daily 08/29/2021 Active Isosorbide Mononitrate ER Take 1 tablet 30 tablet 30 MG Oral Tablet by mouth 0 Extended Release 24 Hour daily (IMDUR) 08/29/2021 Active Metoprolol Succinate ER Take 1 tablet 30 tablet 200 MG Oral Tablet by mouth 0 Extended Release 24 Hour daily (TOPROL-XL) 08/29/2021 Active levETIRAcetam 250 MG Oral Take 1 tablet 60 tablet 11 Tablet (Keppra) by mouth Two 0 Times Daily 08/30/2020 Discontinued (Stop Taking at Discharge) cloNIDine (CATAPRES) 0.1 Take 0.1 mg 0 MG tablet by mouth Two Times Daily 08/30/2020 Discontinued (Stop Taking at Discharge) metoprolol (LOPRESSOR) 50 Take 50 mg by 0 MG tablet mouth Two Times Daily 08/29/2020 Discontinued (Medication Rec oncilation) loratadine (CLARITIN) 10 Take 10 mg by 0 MG tablet mouth daily 08/29/2020 Discontinued (Medication Rec oncilation) hydrochlorothiazide Take 25 mg by 0 (HYDRODIURIL) 25 MG mouth daily tablet 08/29/2020 Discontinued (Medication Rec oncilation) latanoprost (XALATAN) 1 drop 0 0.005 % ophthalmic nightly solution 08/30/2020 Discontinued (Stop Taking at Discharge) sildenafil (VIAGRA) 100 Take 100 mg 0 MG tablet by mouth as needed for Erectile Dysfunction 08/29/2020 Discontinued (Medication Rec oncilation) levETIRAcetam (KEPPRA PO) Take by mouth 0 Two Times Daily 08/30/2020 Discontinued (Stop Taking at Discharge) levETIRAcetam ER 500 MG Take 1,000 mg 0 Oral Tablet Extended by mouth Release 24 Hour (KEPPRA nightly XR) documented as of this encounter (statuses as of 08/30/2020) Active Problems Problem Noted Date NSTEMI (non-ST elevated myocardial infarction) 08/28 Abnormal results of function studies of other organs and systems 02/21/2019 documented as of this encounter (statuses as of 08/30/2020) Social History Date Tobacco Use Types Packs/Day Years Used Former Smoker Smokeless Tobacco: Never Used Comments: quit 2004 Drinks/Week oz/Week Comments Alcohol Use Not Currently Alcohol Habits Answer Date Recorded How often do you have a drink containing alcohol? Never 02/21/2019 How many drinks containing alcohol do you have on No t asked a typical day when you are drinking? How often do you have six or more drinks on one Not asked occasion? Sex Assigned at Date Recorded Not on file Date Recorded COVID-19 Exposure Response 08/28/2020 10:33 AM EST In the last month, have you been in contact with No / Unsure someone who was confirmed or suspected to have Coronavirus / COVID-19? documented as of this encounter Last Filed Vital Signs Reading Time Taken Comments Vital Sign 97/70 08/30/2020 11:00 AM EST Blood Pressure 91 08/30/2020 11:00 AM EST Pulse 36.7 C (98.1 F) 08/30/2020 8:00 AM EST Temperature 16 08/30/2020 11:00 AM EST Respiratory Rate 96% 08/30/2020 9:00 AM EST Oxygen Saturation - - Inhaled Oxygen Concentration 97.1 kg (214 lb 1.1 oz) 08/29/2020 5:34 AM EST Weight 182.9 cm (6') 08/28/2020 5:45 PM EST Height 29.03 08/28/2020 5:45 PM EST Body Mass Index documented in this encounter Discharge Instructions * Instructions* Mitul Hester MD - 08/30/2020 10:19 AM EST Please call and follow up with your primary care doctor within 1-2 weeks regardi ng your hospitalization. Please continue to take your medications as prescribed in your visit summary she et; several changes have been made which are noted there. Please do not take sildenafil (Viagra) because you are being started on Imdur wh ich is also a nitrate. Please follow up with your new day care home provider Dr. Jose James in [place], [place]. You have an appointment there for September 11, 2020 at 9:00am. You can reach their office at . Please picker a few day supply for your medications from the [facility] prior to heading home to [place], the remaining prescriptions will be mailed to you from the [place]. documented in this encounter Progress Notes * Melanie Omer, DARYL - 08/30/2020 12:43 PM EST Patient being discharged to home. VSS. PIV removed. AVS reviewed with patient an d patient stated understanding. Patient brought down to lobby by transport where ride was waiting. * Russell Rhodes - 08/30/2020 12:41 PM EST Spiritual Care Progress Note Logging Equipment Operator: Rev. Russell Rhodes Patient Name: Donald Kelly Age: 64 y.o. Sex: male Room/Bed: 87571/1 Chloe Affiliation/Tradition: Mosque Admit Date: 08/28/2020 Referrals: Referral From: Rounding On Unit Referral To: Health Information Clerk Logging Equipment Operator Contact Information: vocera Spiritual Care Assessment Spouse/Significant Other Name/Relationship: None present Assessed Need for Visit: Change in Health Status Patient Description: Calm, Accepting, At Peace Spiritual/Cultural/Social Issues Assessment: As Health Information Clerk Logging Equipment Operator rounding on c ardiology, I stopped to spiritually assess and offer spiritual support to Mr. Nasir rosales. He was lying in bed appearing relaxed but uninterested in my visit. " I don't need anything." Prayer was offered and declined at this time. Spiritual care remains available to him. Spiritual Care Intervention: Provide [facility] Spiritual Outcomes - Patient: Expressed feelings, [place] comforted, accompanied, [place] heard, valued, affirmed Spiritual Outcomes - Family: Not available for assessment Spiritual Care Plan Goals of Care: To assess spiritual care needs and hopes and mobilize spiritual r esources for patients/families/caregivers that support/enhance quality of life r elated to hospitalization. Outcome: gradually improving Spiritual Care Follow Up Patient Follow-up Plan: Routine visit Family Follow-up Plan: No contact made at this time * Kaylan Mohr RN - 08/29/2020 4:18 PM EST Case Management Screen & Assessment Patient Name: Donald Kelly Gender: male Date of : 1955 Admission Dx: NSTEMI NSTEMI (non-ST elevated myocardial infarction) Age: 64 y.o. Admission: 08/28/2020 5:36 PM Attending Provider: José Burnham MD High Risk Criteria - Prior to Admission/Upon Arrival JAVA J2EE APPLICATION DEVELOPER-Type of Residence: Private Residence JAVA J2EE APPLICATION DEVELOPER- Home Care Services: No Limited Home Supports/Lives Alone?: No Multi trauma/Critical care/Step down admit?: Yes Head/Spinal cord injury?: No Self Pay: No Multiple ED visits?: No Related/Unplanned readmission within 30 days?: No Complex/New medical issues: NSTEMI Relevant comorbidities: Stage 3 RLL Lung Cancer s/p Chemo and radiation Func/Cognitive/Behavorial deficit(s): Seizures CKD Asthma COPD Psychosocial considerations: PTSD Screening Outcome Social Work Consult Needed?: No Further Case Management Needs?: Case Management Needs Chart Review PCP Verified?: Patient has PCP Prior to Admission: Functional/Environmental Assessment Bathing: Independent Dressing: Independent Toileting: Independent Medication administration: Independent Transfers: Independent Ambulation: Independent Meal preparation: Independent Number of stairs into home: 4 Number of stairs to bathroom: 0 Number of stairs to bedroom: 13 Durable Medical Equipment (DME): Cane Discharge Planning Living Arrangements: Spouse/significant other Support Systems: Spouse/significant other Type of Residence: Private residence Is this patient appropriate for transfer to [facility]?: No Patient/family informed of need for discharge planning?: Yes Patient expects to be discharged to:: Home Note: Patient admitted to from [facility].CM contacted patient's spo use. Patient follows up with the [facility] for Medical Care. P atient with [facility], and Medicare A. Patient also uses [facility] for New Medications until they can be ordered by the [place]. Patient's spouse stated he has fallen down their stairs multiple time. That last time was in April before lorenzo polanco made some medication changes. Currently awaiting PT/OT evaluation to help as sist with needs. Patient's spouse stated she could pick him up but she does not drive in the Dark. CM to continue to follow to formalize discharge plan. Kaylan Mohr * Rachel Yanes RN - 08/29/2020 3:27 PM EST 1400 - Attempted to loosen hemoband 2 clicks but bleeding occurred at radial sit e. Tighted hemoband back 2 clicks and bleeding stopped. Will retry again in an h our 1500 - Loosened hemoband 2 clicks successfully without bleeding. Will loosen aga in per order. * Rachel Yanes RN - 08/29/2020 11:16 AM EST 1110 - Patient taken off unit to cath, hep gtt turned off per optical lab technician RN. 1215 - Patient returned to unit, radial band in place. VSS, hep gtt off * Rachel Yanes RN - 08/28/2020 7:10 PM EST If wound was present on admission, this documentation was sent to attending prov ider for cosignature. * Rachel Yanes RN - 08/28/2020 6:27 PM EST 1745 - Patient arrived to 8G room 44, ambulated to the bed as a stand by. Team n otified patient on the floor. VSS, chest pain 4/10 per patient. Oriented to room with call echols in reach. documented in this encounter H&P Notes * Juwan Duran MBBS - 08/29/2020 9:55 AM EST Cardiac Catheterization Pre-procedure History and Physical Subjective: Mr. Donald Kelly is a 64 y.o. year old male with a history of stage III sq uamous cell lung cancer, HTN, seizure disorder, CKD, COPD, anxiety. He was admit caden with complaints of chest pain and dyspnea. Cardiac markers were positive. EK G showed SR and diffuse deep T wave inversion in the precordial leads. . - CCS class: IV - ASA Class III Severe systemic disease - NYHA class: II Patient's medications, allergies, past medical, surgical, social and family hist ories were reviewed and updated as appropriate. Prior Procedures/Dates: PTCA: no CABG: no Exercise treadmill test/Stress: no Other significant clinical information: Dye Allergy? no Coumadin? no Metformin? no Creatinine >1.5 no Current Medications: No current facility-administered medications on file prior to encounter. Current Outpatient Medications on File Prior to Encounter Medication Sig Dispense Refill albuterol (PROVENTIL HFA;VENTOLIN HFA) 108 (90 Base) MCG/ACT inhaler Inha le 2 puffs into the lungs every 6 (six) hours as needed for Wheezing allopurinol (ZYLOPRIM) 100 MG tablet Take 100 mg by mouth daily aspirin 81 MG tablet Take 81 mg by mouth daily azelastine (ASTELIN) 0.1 % nasal spray 1 spray by Nasal route Two Times D aily Use in each nostril as directed clonazePAM (KLONOPIN PO) Take 0.5 mg by mouth Two Times Daily Does not re call dose, nomed list cloNIDine (CATAPRES) 0.1 MG tablet Take 0.1 mg by mouth Two Times Daily T akes 1 tab in am and 2 tab in pm diphenhydrAMINE (BENADRYL) 50 MG capsule Take 25 mg by mouth every 6 (six ) hours as needed for Itching (takes 3 capsules nightly) doxepin (SINEQUAN) 25 MG capsule Take 25 mg by mouth nightly Takes 2 in a m and 3 in pm fluticasone (FLONASE) 50 MCG/ACT nasal spray 1 spray by Nasal route Two T imes Daily Fluticasone-Salmeterol (ADVAIR DISKUS) 250-50 MCG/DOSE AEPB Inhale 2 puff s into the lungs Two Times Daily hydrochlorothiazide (HYDRODIURIL) 25 MG tablet Take 25 mg by mouth daily latanoprost (XALATAN) 0.005 % ophthalmic solution 1 drop nightly levETIRAcetam (KEPPRA PO) Take by mouth Two Times Daily loratadine (CLARITIN) 10 MG tablet Take 10 mg by mouth daily metoprolol tartrate (LOPRESSOR) 25 MG tablet Take 100 mg by mouth Two Vidal es Daily omeprazole (PRILOSEC) 20 MG capsule Take 20 mg by mouth daily sildenafil (VIAGRA) 100 MG tablet Take 100 mg by mouth as needed for Ere ctile Dysfunction Vitamin D3 (CHOLECALCIFEROL) 1000 units tablet Take 2,000 Units by mouth daily Scheduled Meds: allopurinol 300 mg Oral Daily aspirin EC 81 mg Oral Daily atorvastatin 80 mg Oral QPM budesonide-formoterol 2 puff Inhalation 2 Times Daily clonazePAM 0.5 mg Oral BID cloNIDine 0.1 mg Oral BID clopidogrel 75 mg Oral Daily doxepin 50 mg Oral Nightly doxepin 75 mg Oral Daily hydrochlorothiazide 12.5 mg Oral Daily levETIRAcetam 250 mg Oral BID metoprolol tartrate 100 mg Oral BID nitroglycerin ointment 1 inch Transdermal Q6H pantoprazole 20 mg Oral Daily vitamin D3 2,000 Units Oral Daily Continuous Infusions: heparin (porcine) in NaCl 1,400 Units/hr (08/29/20 0900) PRN Meds:.albuterol, heparin (porcine) in NaCl AND heparin (porcine) BOLUS O RDER LOW DOSE AND Weigh Patient and Record AND No Intramuscular Injectio ns AND [COMPLETED] Verify Discontinuation of Enoxaparin, Dalteparin, Subcuta neous Heparin AND If Haparin Infusion Interrupted Related to IV Line (See Co mments) AND CBC AND [COMPLETED] anti-Xa unfractionated heparin level A ND Protime-INR AND CBC AND Protime-INR, perflutren lipid microspheres Review of Systems Pertinent items are noted in HPI. Objective: Physical Exam Vitals: 08/29/20 0400 08/29/20 0600 08/29/20 0730 08/29/20 0800 BP: 110/83 126/78 (!) 137/97 Pulse: 81 85 85 Resp: 13 18 Temp: 36.7 C SpO2: 100% 100% 98% General: Patient is sitting in bed comfortably. Does not appear to be in any ricky arent distress. Alert and oriented to time, place and person Chest: Lung french are clear to auscultation bilaterally. No wheezes. Mild crack les in the bases heard b/l. CVS: Regular rhythm . Normal S1S2. No rubs, murmurs or gallops. Extremities: Warm and well perfused. Donald's: normal Cardiographics ECG: as above . Echocardiogram: pending, to be performed before photo finisher Review Recent Labs Lab 08/28/20181108/29/20 0529 HCT 35.5* 32.2* HGB 12.0* 10.7* MCH 30.7 30.3 MCHC 33.7 33.1 MCV 90.9 91.4 PLT 220 239 RDW 14.0 14.2 WBC 8.3 11.1* Recent Labs Lab 08/28/20181108/29/20 0529 NA 137 137 K 4.0 4.3 CL 104 105 BICARBONATE 21* 22 CALCIUM 8.9 8.4* GLUCOSE 140 111 BUN 21 22 CREATININE 1.15 1.14 BCR 18 19 GFRAA 77 78 GFRNONAA 66 67 Recent Labs Lab 08/29/20 0529 INR 1.10 Recent Labs Lab 08/29/20 0016 08/29/20 0529 TROPONINT 0.14* 0.22* Recent Labs Lab 08/28/20 1812 TRIG 45 HDL 51 LDL 146* No results found for: CKTOTAL, CKMB, CKMBINDEX, TROPONINI Recent Labs Lab 08/28/20 1812 HDL 51 LDL 146* Assessment: Indications for procedure: acute coronary syndrome Plan: Cardiac cath to rule out ischemic CAD. Possible angioplasty. The procedure and risks described to patient including risk of CVA, TN, bleeding , emergency surgery, , contrast nephropathy. Consent signed. Renal: Limit dye use Associated attestation - Brandon Singh MD - 08/29/2020 11:32 AM EST The patient was seen and examined. I agree with dial polisher's note and chintan n as outlined below. He has had an NSTEMI and has a high gail risk score. Plan c ath +/- PCI. documented in this encounter Procedure Notes * Juwan Duran MBBS - 08/29/2020 12:10 PM EST CARDIAC CATHETERIZATION PROCEDURE NOTE REASON FOR PROCEDURE: Mr. Donald Kelly is a 64 y.o. year old male with a history of stage III squamous cell lung cancer, HTN, seizure disorder, CKD, COPD , anxiety. He was admitted with complaints of chest pain and dyspnea. Cardiac ma rkers were positive. EKG showed SR and diffuse deep T wave inversion in the prec ordial leads. ECHO showed LVEF of 40-45%, can not comment on WMA due to poor end ocardial delineation. His clinical presentation is suggestive of NSTEMI. APPROACH: Right Radial DYE USED: 35 cc Omnipaque FLUORO TIME / DOSE: 3.4 minutes/ 1060 mGy/ 6392.41 uGym2 PROCEDURE PERFORMED:Diagnostic left heart catheterization, Selective left and ri ght coronary angiography, Left ventricular and aortic hemodynamic measurements, Radial hemo band placement and Moderate sedation DESCRIPTION OF PROCEDURE Patient was brought to cardiac optical lab technician. Informed consent was obtained after domenico ng explained the procedure including alternatives and complications. Patient was prepped and draped in the usual sterile manner. Time out was called verifying t he correct patient and procedure. Moderate sedation was instituted. The right wr ist was anesthetized with 2% lidocaine. The right radial artery was accessed usi geeta the modified Seldinger technique. A 6Fr radial sheath was placed. Verapamil 5 mg was given intra-arterially through the sheath. A 6Fr Sones 2 catheter was used to successfully engage the right and left lindsey ry artery which was injected and multiple views obtained. This same catheter was then used to access the LV. LV pressures were obtained. A pullback was done and Aortic pressures were obtained. Subsequent to this, all wires and catheters were removed. Sheath was removed an d hemostasis obtained with radial hemo band FINDINGS: (1) Hemodynamics: - The LV systolic pressure was 133 mmHg with an LVEDP of 22 mmHg. - The aortic pressure was 133/83 mmHg with a mean of 105 mmHg. (2) Selective coronary angiography: - The right coronary artery is dominant. - The Right Coronary Artery has 30% lesion in proximal RCA and 40-50% lesion in the PL branch. - The Left Main Coronary Artery divided into the Left Anterior Descending (LAD) and the Left Circumflex artery (LCx). - Left main is angiographically normal. - LAD has 20% lesion in the proximal and mid LAD. - LCx has 20% lesion in the distal LCx. CONCLUSIONS: (1) Right dominant system (2) Insignificant CAD (3) Elevated LVEDP RECOMMENDATIONS: -ASA 81 mg daily lifelong - Moderate intensity statin therapy -Continued CAD risk factor modification Francisco Bennett was present and scrubbed throughout the entire procedure, incl uding during non-garcia portions. There were no other overlapping procedures chuck aguilera this time in the cardiac catherization laboratory. Associated attestation - Brandon Singh MD - 08/29/2020 1:13 PM EST The patient was seen and examined. I agree with dial polisher's note and chintan n as outlined below. documented in this encounter Miscellaneous Notes * Plan of Care - Melanie Omer RN - 08/30/2020 12:34 PM EST Problem: Sensory Perception is less than 4 (< 4) Goal: Improve Sensory Perception Outcome: Education Complete/Goal Met Problem: Moisture is less than 4 (< 4) Goal: Eliminate Moisture Outcome: Education Complete/Goal Met Problem: Activity is less than 4 (< 4) Goal: Improve Activity Outcome: Education Complete/Goal Met Problem: Mobility is less than 4 (< 4) Goal: Improve Mobility Outcome: Education Complete/Goal Met Problem: Nutrition is Less than 3 (< 3) Goal: Improve Nutrition Outcome: Education Complete/Goal Met Problem: Friction Shear is less than 3 (< 3) Goal: Eliminate Friction Shear Outcome: Education Complete/Goal Met Problem: Risk for Falls Goal: No falls during hospitalization Description: Patient will not fall during hospitalization. Outcome: Education Complete/Goal Met Problem: Knowledge Deficit Goal: Knowledge - personal safety Description: Patient will verbalize understanding of fall prevention. Outcome: Education Complete/Goal Met * Assessment & Plan Note - Antionette Fernandez, PT - 08/30/2020 11:15 AM EST Physical Therapy Acute Care Examination Medical Diagnosis: NSTEMI s/p negative cardiac cath History of Present Illness: Per Epic: "Mr. Donald Kelly is a 64 y.o. male with a PMHx of Stage 3 RLL squamous cell lung cancer s/p chemo and radiation, CKD3 due to cisplatin treatment, asthma, COPD not on home O2, seizure disorder, HTN, gout, GERD, and PTSD who presents as a transfer from [facility] for management of possible NSTEMI. He presented there for exertional CP and SOB. Per documentation he was admitted there for COPD exacerbation and acute hypoxic respiratory failure. He was put on nasal canula O2, received IV steroids, and xopenex. COVID19 was negative. He remained tachycardic as high as 130, and CTA chest was done which ruled out PE. After these treatments he felt better, but noticed he was having substernal chest pain. Troponins were 0.42, 0.4, and 0.44. EKG showed concerns for lateral and inferior wall ischemia, but no ST elevations. He was loaded with aspirin, plavix, started on heparin drip, and transferred to [facility] for possible cardiac cath. ? On my evaluation of patient, he endorsed the above. He described the chest pain to be central, crushing, 4/10 intensity, non-radiating, worse on exertion, associated with SoB and palpitations. He denied any lightheadedness, syncope, diaphoresis, N/V. The pain is intermittent, typically occurring with stairs or when walking throughout the house, coming on suddenly; relieved by rest. He does endorse leg swelling, however he was diuresed by his cardiac technician. Denies any previous cardiac history, or TN in the past. Reports his father of a stroke. ? Upon transfer he was still having 4/10 chest pain, tachycardic 119, and hypertensive 145/107; otherwise hemodynamically stable. Basic labs were non-actionable. EKG was concerning showing new deeply inverted T waves in V3-V6; no noted ST elevations or depressions. Troponins were drawn, nitro paste given, and heparin drip continued. Admitted to CCU for possible cardiac cath and medical management. ?" Date of Onset: as described above Date of Admission: 08/28/2020 5:36:00 PM Demographics: Age: 64 Gender: Male Past Medical History and Radiographics: Significant rehabilitation considerations: Past Medical History: DiagnosisDate ?Anxiety? ?Asthma? ?Asthma due to environmental allergies? ?COPD (chronic obstructive pulmonary disease)? ?GERD (gastroesophageal reflux disease)? ?Gout? ?Hypertension? ?Lung cancer? ?PTSD (post-traumatic stress disorder)? ?Seizure? ? Past Surgical History UMBILICAL HERNIA REPAIR SINUS SURGERY dental implants chest port Rehabilitation Precautions/Restrictions: full code, high fall risk, OOB w/ assistance SUBJECTIVE Mental Status: Orientation:The patient is oriented to person, place and time. Command Following:The patient is able to follow 3+ step commands Prior Functional Level: The patient reported the premorbid level of function was Pt reporting that he does his own bathing a dressing "most of the time". Pt reporting that he was falling often so she would stay upstairs while he was showering to make sure everything was okay. Pt reporting that his falls were after he came off his keytruda and he was falling 2x/month up until this month. Pt reporting he believes it was due to the keppra does being too high. Pt reporting that he would catch his toe on something and trip. No assistive device used. Pt does not drive- pts takes him to appointments. does the cooking and cleaning. 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 Patient lives with . If needed: Family member is willing to assist. Pts is home at all times Home Environment: There are 4 steps to enter the home with Right ascending handrails. There is no ramp to enter the home. Home is two levels. Description of 1st floor bedroom and bathroom availability/accessibility: half bathroom and living areas . Description of 2nd floor bedroom and bathroom accessibility: bedroom and full bathroom (+)tub shower (+)shower chair (+)flat bed . The patient is required to manage 13 steps within the home, with Right ascending handrails. Equipment Owned: Straight cane. Shower chair. Pain: Patient has no complaints of pain currently. Pain Medication Today: no. OBJECTIVE General Observation: Pt presents supine in bed in NAD (+)tele (+)PIV No bed alarm noted at start of session. Range of Motion:BUE and BLE AROM WFL for mobility described below Strength:BUE and BLE strength WFL for mobility described below Skin Integrity Screen: visible skin intact Tone/Spasticity: Not applicable. Sensation: Grossly intact. Balance: Independent and within functional limits. Endurance: Independent and within functional limits. Coordination: Upper and lower extremity gross motor coordination grossly intact. Therapeutic/Functional Activities: Bed Mobility: Patient moves from supine to/from sit with independence. Transfers: Patient transferred sit to/from stand with independence. Locomotion/Wheelchair: Not assessed. Locomotion/Gait/Ambulation: Patient was independent with gait/ambulation Stairs: Patient was modified independent for 10 ascend/descend . Patient used the following equipment: Unilateral Railing. (+)reciprocal gait pattern Vital Signs: Stable. Blood Pressure: 97/70 mm Hg Heart Rate: 90 beats per minute Outcome Measures: [facility] AM-PAC "6 Clicks" Basic Mobility Inpatient Short Form: Turning over in bed: No difficulty (4) Sitting down on and standing up from a chair with arms: No difficulty (4) Moving from lying on back to sitting on the side of the bed: No difficulty (4) Moving to and from a bed to a chair (including a wheelchair): No help (4) Walking in hospital room: No help (4) Climbing 3-5 steps with a railing: No help (4) Raw Score 24 /24. Interventions: None provided today. Education: Educational needs: importance of mobility, role of acute PT, PT plan of care, safe mobility, benefits of OP PT, how to obtain PT script if needed Barriers to Learning: No barriers. Learning Preference: Auditory. Mode of education provided: Explanation. Audience: Patient. Education Provided: importance of mobility, role of acute PT, PT plan of care, safe mobility, benefits of OP PT, how to obtain PT script if needed . Response: Indicates understanding. ASSESSMENT Low Complexity Evaluation: An examination of body system(s) using standardized tests and measures addressing 1-2 elements from any of the following: body structures and functions, activity limitations, and/or participation restrictions. A clinical presentation with stable and/or uncomplicated characteristics. Clinical decision-making of low complexity using standardized patient assessment instrument and/or measurable assessment of functional outcome. Response to Evaluation: The session was tolerated well. Demonstrated independence on stairs with rail. Patient demonstrated independent ambulation on level surfaces. Call echols was in patient's reach at end of session. Pain: Patient has no complaints of pain currently. Other Rehabilitation Considerations: Patient's progress may be impaired by the following potential barriers: No potential barriers to progress. Support Structure: Support structure is good. Strengths: Social/family support. Independent premorbid function. Goals: Patient's functional goals: to go home The patient's therapy goals are based on limitations/impairments in the following areas: No impairments noted at this time. Short Term Goals: Not applicable. No impairments noted. Snf Goals: Not applicable. PLAN Treatment Frequency, Duration and Interventions: Physical Therapy services are discontinued at this time secondary to: No need for skilled therapy intervention at this time. Equipment Provided: None issued this visit. Equipment Recommended: None. Recommended Physical Therapy Follow Up: Upon acute care discharge, the following is currently recommended: Outpatient Physical Therapy. Recommended Consults: None currently. Development of Plan of Care: Participants included: Nurse. Patient. Goal Review Visit Number: 1 Visit Number: Today's visit is number 1 Program: Cardiac (Therapist may be reached on Vocera) SESSION: Duration: 19 CHARGES: - ORDER - PHYSICAL THERAPY CONSULT 1 Units - CARDIAC VISIT 1 Units - STAT ONLY VISIT 1 Units 11139 - CHARGE - PT EVAL; LOW COMPLEXITY 1 Units - 0 Units - 0 Units - 0 Units Total treatment minutes: 19.00 Minutes Electronically Signed by: Antionette Fernandez PT, DPT, 08/30/2020 11:21:14 AM * Plan of Joy Smith RN - 08/30/2020 12:21 AM EST Problem: Sensory Perception is less than 4 (< 4) Goal: Improve Sensory Perception Outcome: Progressing Problem: Moisture is less than 4 (< 4) Goal: Eliminate Moisture Outcome: Progressing Problem: Activity is less than 4 (< 4) Goal: Improve Activity Outcome: Progressing Problem: Mobility is less than 4 (< 4) Goal: Improve Mobility Outcome: Progressing Problem: Nutrition is Less than 3 (< 3) Goal: Improve Nutrition Outcome: Progressing Problem: Friction Shear is less than 3 (< 3) Goal: Eliminate Friction Shear Outcome: Progressing Problem: Risk for Falls Goal: No falls during hospitalization Description: Patient will not fall during hospitalization. Outcome: Progressing Problem: Knowledge Deficit Goal: Knowledge - personal safety Description: Patient will verbalize understanding of fall prevention. Outcome: Progressing * Plan of Care - Marianne Hair RN - 08/29/2020 7:05 AM EST Problem: Sensory Perception is less than 4 (< 4) Goal: Improve Sensory Perception Outcome: Progressing Problem: Moisture is less than 4 (< 4) Goal: Eliminate Moisture Outcome: Progressing Problem: Activity is less than 4 (< 4) Goal: Improve Activity Outcome: Progressing Problem: Mobility is less than 4 (< 4) Goal: Improve Mobility Outcome: Progressing Problem: Nutrition is Less than 3 (< 3) Goal: Improve Nutrition Outcome: Progressing Problem: Friction Shear is less than 3 (< 3) Goal: Eliminate Friction Shear Outcome: Progressing Problem: Risk for Falls Goal: No falls during hospitalization Description: Patient will not fall during hospitalization. Outcome: Progressing Problem: Knowledge Deficit Goal: Knowledge - personal safety Description: Patient will verbalize understanding of fall prevention. Outcome: Progressing documented in this encounter Plan of Treatment Order Schedule Name Type Priority Associated Diag noses Continuous for 30 days for 30 Days start ing 08/28/2020 until 09/27/2020 Oxygen Orders: Nasal Respiratory Routine Cannula; Liters per Care minute: 2 LPM; D/C Oxygen 48hrs After Being on Room Air: Yes; Wean/Titrate O2 to Keep Sats =>: 92 AM Draw for 3 Occurrences starting 08/29 until 08/31/2020, 2 completed Basic Metabolic Panel Lab Routine AM Draw for 3 Days starting 08/29/2020 u ntil 08/31/2020, 2 completed CBC and Differential Lab Routine Health Maintenance Due Date Last Done Comments MMR Vaccines (1 of 1 - 1956 Standard series) Varicella Vaccines (1 of 1956 2 - 2-dose childhood series) DTaP,Tdap,and Td Vaccines 1964 (1 - Tdap) HIV Screening 1970 Colon Cancer Screening 10 2007 yrs Zoster Vaccines (1 of 2) 2007 Influenza Vaccine 07/18/2020 Pneumococcal Vaccine: 65+ 2022 Years (1 of 1 - PPSV23) Hepatitis C Screening (B. Completed 08/28/[id number]) HIB Vaccines Aged Out No longer eligible based on patient's age to complete this topic Hepatitis A Vaccines Aged Out No longer eligibl e based on patient's age to complete this topic Hepatitis B Vaccines Aged Out No longer eligibl e based on patient's age to complete this topic IPV Vaccines Aged Out No longer eligible based on patient's age to complete this topic Pneumococcal Vaccine: Aged Out No longer eligib le based on patient's age to Pediatrics (0 to 5 Years) complete this topic and At-Risk Patients (6 to 64 Years) documented as of this encounter Procedures Comments Procedure Name Priority Date/Time Associated Diag nosis CBC AND DIFFERENTIAL Routine 08/30/2020 4:28 AM EST CALCIUM, IONIZED Routine 08/30/2020 4:28 AM EST BASIC METABOLIC PANEL Routine 08/30/2020 4:28 AM EST L HRT ARTERY/VENTRICLE 08/29/2020 NSTEMI ANGIO 11:27 AM EST CARDIAC CATH PROCEDURE 08/29/2020 LOG 10:55 AM EST ECHOCARDIOGRAM 2D Routine 08/29/2020 COMPLETE 9:38 AM EST EKG 12-LEAD - CMAXX 08/29/2020 REPORT 9:10 AM EST EKG 12-LEAD - CMAXX 08/29/2020 REPORT 9:10 AM EST EKG 12-LEAD Routine 08/29/2020 9:10 AM EST SOCIAL SCIENCES INSTRUCTOR PROCEDURE Routine 08/29/2020 8:43 AM EST VERIFYNOW P2Y12 Routine 08/29/2020 5:29 AM EST PROTIME INR Routine 08/29/2020 5:29 AM EST CBC AND DIFFERENTIAL Routine 08/29/2020 5:29 AM EST TROPONIN T Timed 08/29/2020 5:29 AM EST BASIC METABOLIC PANEL Routine 08/29/2020 5:29 AM EST ANTI-XA UNFRACTIONATED Routine 08/29/2020 HEPARIN LEVEL 12:16 AM EST TROPONIN T Timed 08/29/2020 12:16 AM EST EKG 12-LEAD - CMAXX 08/28/2020 REPORT 6:21 PM EST EKG 12-LEAD - CMAXX 08/28/2020 REPORT 6:21 PM EST EKG 12-LEAD STAT 08/28/2020 6:21 PM EST XR CHEST FRONTAL ONLY STAT 08/28/2020 18506 6:15 PM EST ANTI-XA UNFRACTIONATED Routine 08/28/2020 HEPARIN LEVEL 6:12 PM EST HEPATITIS C ANTIBODY Routine 08/28/2020 6:12 PM EST PROTIME INR Routine 08/28/2020 6:12 PM EST CBC Timed 08/28/2020 6:12 PM EST PHOSPHORUS LEVEL Routine 08/28/2020 6:12 PM EST MAGNESIUM LEVEL Routine 08/28/2020 6:12 PM EST LIPID PANEL Routine 08/28/2020 6:12 PM EST BASIC METABOLIC PANEL Routine 08/28/2020 6:12 PM EST documented in this encounter Results * Calcium, ionized (08/30/2020 4:28 AM EST) Pathologist [facility] Calcium 1.19 1.13 - 1.32 mmol/L [facility] Bekah HemphillWKhris Formerly [facility], [facility] Clin Pathology Specimen Whole Blood Performing Organization Address City/State/[facility] Ph one Number [facility] CLINICAL [address], [place] [address] PATHOLOGY [facility] [address] [place], [place] [address] Clin Pathology * CBC and Differential (08/30/2020 4:28 AM EST) Pathologist [facility] White Blood 7.8 4 - 10 10*3/uL [facility] Univ Clin Pathology Red Blood Cell 3.84 (L) 4.6 - 6.1 10*6/uL [facility] Clin Pathology Hemoglobin 11.7 (L) 13.5 - 18 g/dL [facility] Clin Pathology Hematocrit 35.1 (L) 41 - 53 % [facility] Clin Pathology Mean Cell 91.4 80 - 96 fL [facility] Volume [facility] Univ Clin Pathology Mean Cell 30.4 27 - 33 pg [facility] Hemoglobin [facility] Clin Pathology Mean Cell Hgb 33.3 32.0 - 36.0 g/dL [facility] Univ Clin Pathology Red Cell Dist 14.0 11.5 - 14.5 % [facility] Width [facility] Clin Pathology Platelet Count 237 150 - 400 10*3/uL [facility] Clin Pathology Differential Automated Diff [facility] Type [facility] Clin Pathology Neutrophil 65 % [facility] Clin Pathology Lymphocyte 18 % [facility] Clin Pathology Monocyte 5 % [facility] Clin Pathology Eosinophil 11 % [facility] Clin Pathology Basophil 1 % [facility] Clin Pathology Abs Neutrophil 5.18 1.8 - 7.0 10*3/uL [facility] Clin Pathology Abs Lymphocyte 1.36 1.2 - 4.0 10*3/uL [facility] Clin Pathology Abs Monocyte 0.39 0 - 0.8 10*3/uL [facility] Clin Pathology Abs Eosinophil 0.82 (H) 0 - 0.5 10*3/uL [facility] Clin Pathology Abs Basophil 0.04 0 - 0.2 10*3/uL [facility] Clin Pathology Nucleated Red 0 0 - 0 /100{WBCs} [facility] Blood Cells Formerly [facility] Clin Pathology Specimen EDTA Whole Blood Performing Organization Address [facility] Ph one Number [facility] CLINICAL [address], [place] [address] PATHOLOGY [facility] [address] [place], [place] [address] Clin Pathology * Basic Metabolic Panel (08/30/2020 4:28 AM EST) Bicarbonate 22 22 - 29 mmol/L [facility] CLINICAL PATHOLOGY Chloride 105 98 - 107 mmol/L [facility] CLINICAL PATHOLOGY Creatinine 1.24 (H) 0.70 - 1.20 mg/dL [facility] CLINICAL PATHOLOGY Glucose 100 70 - 140 mg/dL [facility] PATHOLOGY Potassium 4.1Comment: Hemolyzed 3.4 - 5.1 mmol/L [facility] CLINICAL PATHOLOGY Sodium 137 136 - 145 mmol/L [facility] CLINICAL PATHOLOGY Blood Urea 22 8 - 23 mg/dL [facility] Nitrogen CLINICAL PATHOLOGY Anion Gap 10 8 - 15 mmol/L [facility] CLINICAL PATHOLOGY Osmolality, Kamaljit 287 275 - 300 mosm/kg [facility] PATHOLOGY BUN/Cre Ratio 18 [facility] CLINICAL PATHOLOGY Calcium 8.5 (L) 8.8 - 10.2 mg/dL [facility] CLINICAL PATHOLOGY GFR Non 61 >60 mL/min/1.73m2 [facility] 2008 CLINICAL CDK-EPI PATHOLOGY GFR 70 >60 mL/min/1.73m2 [facility] 2009 CLINICAL CKD-EPI PATHOLOGY Specimen Plasma Performing Organization Address City/[facility] Ph one Number [facility] CL[facility] [address], [place] [address] PATHOLOGY * CARDIAC CATH PROCEDURE LOG (08/29/2020 10:55 AM EST) Narrative Performed At This result has an attachment that is n ot available. * Echocardiogram 2D complete (08/29/2020 9:38 AM EST) Specimen Narrative Performed At . [facility] Echo/Stress Lab [address] [place] [address] Echocardiography Examination Transthoracic Name: DONALD KELLY MR#: [id number] Admission Number: [id number] Study Date: 08/29/2020 Study Time: 09:38 AM Date Of : 1955 Age: 64 years Height: 72 in. (182.9 cm) Weight: 185 lbs. (83.92 kg) BSA: 2.06 m2 Gender: Male Blood Pressure: 137 mmHg / 97 mmHg Heart Rate: Rhythm: Normal sinus rhythm Procedure Staff Rv Technician: Collins Perez RDCS Reading Physician: Mirza Leigh MD Ordering Physician: MITUL HESTER Admitting Physician: [id number] Referring Physician: PROVIDER NOT IN SYSTEM Indications Reason for Order->Acute Coronary Syndro me Exam Details Procedure Ordered: ECHOCARDIOGRAM 2D COMPLETE Image Quality: Technically Difficult Technical Limitations: Echocardiographic views were limited by poor acoustic window availability Contrast: I.V. dose of Definity was administere d to improve endocardial border definition. Conclusions 1. Technically very difficult study. Definity contrast was performed. 2. No obvious valvular pathology is seen. There is a thickened aortic leaflets t delphine no evidence of stenosis or insufficiency. 3. Moderate LV dysfunction by contrast De finity. Estimate ejection fraction 40%. Global in nature. No significant wall motion abnormality. 4. No evidence of pericardial effusion. 5. If clinically indicated only a ABDELRAHMAN wou ld be recommended. Patient: DONALD KELLY Study Date: 08/29/2020 09:38 AM Findings Left Ventricle: Left ventricle is normal in size. No le ft ventricular hypertrophy. Severely reduced systolic left ventricular funct ion. Left ventricular diastolic function paramete rs are normal. Right Ventricle: Right ventricle is normal in size . Rig ht ventricular systolic function is normal. Left Atrium: The left atrium size by volume measurem ent is normal (16-34 ml/m2) . Right Atrium: The right atrium size by volume measure ment is normal. Right Atrium Measurements RA Index: 18.0 ml/m. Mitral Valve: Mitral valve appears structurally kevin l. There is normal leaflet mobility. No mitral regurgitation. No mitral valve s tenosis. Aortic Valve: The aortic valve is trileaflet. Moderat e aortic valve sclerosis. The aortic valve leaflets demonstrate normal mobil ity. No aortic regurgitation. There is no aorti c stenosis. Tricuspid Valve: The tricuspid valve appears structurall y normal. The tricuspid valve leaflets demonstrate normal mobility. No tricusp id regurgitation. No tricuspid valve steno sis. Pulmonic Valve: The Pulmonic valve appears structurally normal. Trace/physiologic pulmonic regurgitation is present. There is no p ulmonic valve stenosis. The pulmonic valve leaf lets demonstrate normal mobility. Aorta: The aortic root is normal in size. Great Vessels: IVC: The inferior vena cava is normal in siz e with preserved inspiratory collapse. Pericardium: No pericardial effusion. Measurements Anatomy Label Value Normal Value Interventricular septum IVSd, 2D 1.2 cm (0.6cm - 1cm) Left Ventricle LVDd, 2D 4.72 cm (4.2cm - 5.84cm) Left Ventricle LVDs, 2D 3.82 cm (2.5cm - 3.98cm) Left Ventricle LVPWd, 2D 1 cm (0.6cm - 1cm) Left Ventricle LV Mass Index, 2D ASE 91.7 g/m (50g/m - 102.4g/m) Left Ventricle LVRWT, 2D 0.41 (0.24 - 0.42) Left Ventricle LVESV, 2D 63 ml Left Ventricle Diastolic MV E/A 1.16 Function Left Ventricle Diastolic MV E/E' lateral 7.52 (0 - 13) Function Left Ventricle Diastolic MV E/E' septal 10.56 (0 - 15) Function Left Ventricle Diastolic MV E' septal 0.06 m/s (0.07m/s - 0m/s) Function Left Ventricle Diastolic MV E' lateral 0.09 m/s Function Patient: DONALD KELLY Study Date: 08/29/2020 09:38 AM Left Ventricle Diastolic MV E/E' mean 8 .8 (0 - 14) Function Left Ventricle Diastolic MV E' mean 0.08 m/s Function Mitral Valve MV PHT 0.05 s Mitral Valve MVA PHT 4.9 cm (1.6cm - 5cm) Pulmonic Valve PV PGmax 2 mmHg Pulmonic Valve PV Vmax, Caliper 0.73 m/s (0.6m/s - 0.9m/s) Right Atrium RA Index 18 ml/m (1ml/m - 39ml/m) Right Ventricle RVD Base 3.8 cm (2.5cm - 4.1cm) Tricuspid Valve TR Vmax 2.45 m/s (0.1m/s - 2.8m/s) _ Patient: DONALD KELLY Study Date: 08/29/2020 09:38 AM Procedure Note Interface, Received Via Departmental Systems - 08/29/2020 12:26 PM [facility] [place] Echo/Stress Lab [address] [place] [address] Echocardiography Examination Transthoracic Name: DONALD KELLY MR#: [id number] Admission Number: [id number] Study Date: 08/29/2020 Study Time: 09:38 AM Date Of : 1955 Age: 64 years Height: 72 in. (182.9 cm) Weight: 185 lbs. (83.92 kg) BSA: 2.06 m2 Gender: Male Blood Pressure: 137 mmHg / 97 mmHg Heart Rate: Rhythm: Normal sinus rhythm Procedure Staff Rv Technician: Collins Perez [facility] Reading Physician: Mirza Leigh MD Ordering Physician: MITUL HESTER Admitting Physician: [id number] Referring Physician: PROVIDER NOT IN SYSTEM Indications Reason for Order->Acute Coronary Syndrome Exam Details Procedure Ordered: ECHOCARDIOGRAM 2D COMPLETE Image Quality: Technically Difficult Technical Limitations: Echocardiographic views were limited by poor acoustic window availability Contrast: I.V. dose of Definity was administered to improve endocardial border definition. Conclusions 1. Technically very difficult study. D efinity contrast was performed. 2. No obvious valvular pathology is see n. There is a thickened aortic leaflets though no evidence of stenosis or insufficiency. 3. Moderate LV dysfunction by contrast Definity. Estimate ejection fraction 40%. Global in nature. No significant wall motion abnormality. 4. No evidence of pericardial effusion. 5. If clinically indicated only a ABDELRAHMAN w ould be recommended. Patient: DONALD KELLY Study Date: 08/29/2020 09:38 AM Findings Left Ventricle: Left ventricle is normal in size. No left ventricular hypertrophy. Severely reduced systolic left ventricular function. Left ventricular diastolic function parameters are normal. Right Ventricle: Right ventricle is normal in size . Right ventricular systolic function is normal. Left Atrium: The left atrium size by volume measurement is normal (16-34 ml/m2) . Right Atrium: The right atrium size by volume measurement is normal. Right Atrium Measurements RA Index: 18.0 ml/m. Mitral Valve: Mitral valve appears structurally normal. There is normal leaflet mobility. No mitral regurgitation. No mitral valve stenosis. Aortic Valve: The aortic valve is trileaflet. Moderate aortic valve sclerosis. The aortic valve leaflets demonstrate normal mobility. No aortic regurgitation. There is no aortic stenosis. Tricuspid Valve: The tricuspid valve appears structurally normal. The tricuspid valve leaflets demonstrate normal mobility. No tricuspid regurgitation. No tricuspid valve stenosis. Pulmonic Valve: The Pulmonic valve appears structurally normal. Trace/physiologic pulmonic regurgitation is present. There is no pulmonic valve stenosis. The pulmonic valve leaflets demonstrate normal mobility. Aorta: The aortic root is normal in size. Great Vessels: IVC: The inferior vena cava is normal in size with preserved inspiratory collapse. Pericardium: No pericardial effusion. Measurements Anatomy Label Value Normal Value Interventricular septum IVSd, 2D 1.2 cm (0.6cm - 1cm) Left Ventricle LVDd, 2D 4.72 cm (4.2cm - 5.84cm) Left Ventricle LVDs, 2D 3.82 cm (2.5cm - 3.98cm) Left Ventricle LVPWd, 2D 1 cm (0.6cm - 1cm) Left Ventricle LV Mass Index, 2D ASE 91.7 g/m (50g/m - 102.4g/m) Left Ventricle LVRWT, 2D 0.41 (0.24 - 0.42) Left Ventricle LVESV, 2D 63 ml Left Ventricle Diastolic MV E/A 1.16 Function Left Ventricle Diastolic MV E/E' lateral 7.52 (0 - 13) Function Left Ventricle Diastolic MV E/E' septal 10.56 (0 - 15) Function Left Ventricle Diastolic MV E' septal 0.06 m/s (0.07m/s - 0m/s) Function Left Ventricle Diastolic MV E' lateral 0.09 m/s Function Patient: DONALD KELLY Study Date: 08/29/2020 09:38 AM Left Ventricle Diastolic MV E/E' mean 8.8 (0 - 14) Function Left Ventricle Diastolic MV E' mean 0.08 m/s Function Mitral Valve MV PHT 0.05 s Mitral Valve MVA PHT 4.9 cm (1.6cm - 5cm) Pulmonic Valve PV PGmax 2 mmHg Pulmonic Valve PV Vmax, Caliper 0.73 m/s (0.6m/s - 0.9m/s) Right Atrium RA Index 18 ml/m (1ml/m - 39ml/m) Right Ventricle RVD Base 3.8 cm (2.5cm - 4.1cm) Tricuspid Valve TR Vmax 2.45 m/s (0.1m/s - 2.8m/s) Patient: DONALD KELLY Study Date: 08/29/2020 09:38 AM Performing Organization Address City/State/Zipcode Ph one Number [facility] ECHO * EKG 12-LEAD - CMAXX REPORT (08/29/2020 9:10 AM EST) Narrative Performed At This result has an attachment that is n ot available. * EKG 12-LEAD - CMAXX REPORT (08/29/2020 9:10 AM EST) Narrative Performed At This result has an attachment that is n ot available. * EKG 12 Lead (08/29/2020 9:10 AM EST) Specimen Narrative Performed At Ventricular Rate: [facility] EKG 73 BPM Atrial Rate: 73 BPM P-R Interval: 186 ms QRS Duration: 94 ms Q-T Interval: 486 ms QTC Calculation(Bazett): 535 ms P [place]: 33 degrees R [place]: -24 degrees T [place]: 207 degrees : SINUS RHYTHM WITH OCCASIONAL PREMATUR E VENTRICULAR COMPLEXES : LOW VOLTAGE QRS : ISCHEMIA SUGGESTED BY ST-T WAVE ABNOR MALITY INFERIOR AND : ANTEROLATERAL LEADS : PROLONGED QT : ABNORMAL ECG : WHEN COMPARED WITH ECG OF 28-AUG-2020 18:21, (UNCONFIRMED) : HEART RATE IS SLOWER BY 13 BEATS : PREMATURE VENTRICULAR COMPLEXES ARE N OW PRESENT : Confirmed by Sil Soares ( 65) on 08/29/2020 2:32:35 : PM Procedure Note Interface, Received Via [employer]al Systems - 08/29/2020 2:32 PM EST Ventricular Rate: 73 BPM Atrial Rate: 73 BPM P-R Interval: 186 ms QRS Duration: 94 ms Q-T Interval: 486 ms QTC Calculation(Bazett): 535 ms P Sulph[place]: 33 degrees R Sulph[place]: -24 degrees T [place]: 207 degrees : SINUS RHYTHM WITH OCCASIONAL PREMATURE VENTRICULAR COMPLEXES : LOW VOLTAGE QRS : ISCHEMIA SUGGESTED BY ST-T WAVE ABNORMALITY INFERIOR AND : ANTEROLATERAL LEADS : PROLONGED QT : ABNORMAL ECG : WHEN COMPARED WITH ECG OF 28-AUG-2020 18:21, (UNCONFIRMED) : HEART RATE IS SLOWER BY 13 BEATS : PREMATURE VENTRICULAR COMPLEXES ARE NOW PRESENT : Confirmed by Sil Soares ([id number]) on 08/29/2020 2:32:35 : PM Performing Organization Address [facility] one Number [facility] EKG * Troponin T (08/29/2020 5:29 AM EST) Troponin T 0.22 (HH)Comment: No <0.01 ng/mL [facility] Significant Change since last CLINICAL result called PATHOLOGY Specimen Plasma Performing Organization Address [facility] one Number [address] 1321 PATHOLOGY * Protime-INR (08/29/2020 5:29 AM EST) PT Patient 14.3 12.5 - 14.9 s [facility] Clin Pathology Int'l 1.10Comment: Routine intensity [facility] pstate Normalized oral anticoagulation INR is Med Univ Clin Ratio typically 2.0-3.0. Target INR Patholo gy must be clinically individualized. Specimen Plasma Performing Organization Address [facility] one Number [address] 1321 PATHOLOGY [facility] [address] [place], [place] [address] Clin Pathology * VerifyNow P2Y12 (08/29/2020 5:29 AM EST) VERIFY NOW 282 (H) <208 PRU [facility] P2Y12 Comment: Med Univ Clin (NOTE) Pathology <208 PRU Therapeutic range for P2Y12 inhibitors 208-418 PRU Low response to P2Y12 inhibitors Specimen Whole Blood Performing Organization Address [facility] one Number [address] 1321 PATHOLOGY [facility] [address] [place], [place] [address] Clin Pathology * CBC and Differential (08/29/2020 5:29 AM EST) White Blood 11.1 (H) 4 - 10 10*3/uL [facility] Univ Clin Pathology Red Blood Cell 3.53 (L) 4.6 - 6.1 10*6/uL [facility] Clin Pathology Hemoglobin 10.7 (L) 13.5 - 18 g/dL [facility] Clin Pathology Hematocrit 32.2 (L) 41 - 53 % [facility] Clin Pathology Mean Cell 91.4 80 - 96 fL [facility] Volume [facility] Univ Clin Pathology Mean Cell 30.3 27 - 33 pg [facility] Univ Clin Pathology Mean Cell Hgb 33.1 32.0 - 36.0 g/dL [facility] Univ Clin Pathology Red Cell Dist 14.2 11.5 - 14.5 % [facility] Width [facility] Univ Clin Pathology Platelet Count 239 150 - 400 10*3/uL [facility] Clin Pathology Differential Automated Diff [facility] Type [facility] Univ Clin Pathology Neutrophil 82 % [facility] Univ Clin Pathology Lymphocyte 12 % [facility] Clin Pathology Monocyte 6 % [facility] Clin Pathology Eosinophil 0 % [facility] Clin Pathology Basophil 0 % [facility] Clin Pathology Abs Neutrophil 9.04 (H) 1.8 - 7.0 10*3/uL [facility] Clin Pathology Abs Lymphocyte 1.30 1.2 - 4.0 10*3/uL [facility] Clin Pathology Abs Monocyte 0.70 0 - 0.8 10*3/uL [facility] Clin Pathology Abs Eosinophil 0.02 0 - 0.5 10*3/uL [facility] Clin Pathology Abs Basophil 0.01 0 - 0.2 10*3/uL [facility] Clin Pathology Nucleated Red 0 0 - 0 /100{WBCs} [facility] Blood Cells [facility], [facility] Clin Pathology Specimen EDTA Whole Blood Performing Organization Address City/State/[facility] Ph one Number [facility] CLINICAL [address] [place], [place] 132[address] PATHOLOGY [facility] [address] [place], [place] [address] Clin Pathology * Basic Metabolic Panel (08/29/2020 5:29 AM EST) Bicarbonate 22 22 - 29 mmol/L [facility] CLINICAL PATHOLOGY Chloride 105 98 - 107 mmol/L [facility] PATHOLOGY Creatinine 1.14 0.70 - 1.20 mg/dL [facility] CLINICAL PATHOLOGY Glucose 111 70 - 140 mg/dL [facility] CLINICAL PATHOLOGY Potassium 4.3 3.4 - 5.1 mmol/L [facility] CLINICAL PATHOLOGY Sodium 137 136 - 145 mmol/L [facility] PATHOLOGY Blood Urea 22 8 - 23 mg/dL [facility] Nitrogen CLINICAL PATHOLOGY Anion Gap 10 8 - 15 mmol/L [facility] PATHOLOGY Osmolality, Kamaljit 288 275 - 300 mosm/kg [facility] PATHOLOGY BUN/Cre Ratio 19 [facility] CLINICAL PATHOLOGY Calcium 8.4 (L) 8.8 - 10.2 mg/dL [facility] CLINICAL PATHOLOGY GFR Non 67 >60 mL/min/1.73m2 [facility] 2008 CLINICAL CDK-EPI PATHOLOGY GFR 78 >60 mL/min/1.73m2 [facility] 2008 CLINICAL CKD-EPI PATHOLOGY Specimen Plasma Performing Organization Address [facility] one Number [facility] CLINICAL [address] [place], [place] 132[address] PATHOLOGY * anti-Xa unfractionated heparin level (08/29/2020 12:16 AM EST) Heparin 0.43 U/ml [facility] Unfractionated [facility] Univ Clin Pathology Specimen Plasma Performing Organization Address [facility] Ph one Number [facility] CLINICAL [address] [place], [place] 1321 PATHOLOGY [facility] Univ [address] [place], [place] [address] Clin Pathology * Troponin T (08/29/2020 12:16 AM EST) Troponin T 0.14 ()Comment: Results <0.01 ng/mL [facility] called to and read back by CLINICAL JOY PHILIP RN ON 8G AT 0110 PATHOLOGY [id number] BY [id number] Specimen Plasma Performing Organization Address [facility] Ph one Number [facility] CLINICAL [address] [place], [place] 132[address] PATHOLOGY * EKG 12-LEAD - CMAXX REPORT (08/28/2020 6:21 PM EST) Narrative Performed At This result has an attachment that is n ot available. * EKG 12-LEAD - CMAXX REPORT (08/28/2020 6:21 PM EST) Narrative Performed At This result has an attachment that is n ot available. 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 : ANTEROLATERAL LEADS : PROLONGED QT : ABNORMAL ECG : NO PREVIOUS ECGS AVAILABLE : Confirmed by Sil Soares ( 65) on 08/29/2020 2:29:45 : PM Procedure Note Interface, Received Via Departmental Systems - 08/29/2020 2:29 PM EST Ventricular Rate: 86 BPM Atrial Rate: 86 BPM P-R Interval: 210 ms QRS Duration: 96 ms Q-T Interval: 442 ms QTC Calculation(Bazett): 528 ms P [place]: 29 degrees R [place]ph[place]: -36 degrees T [place]: 218 degrees : SINUS RHYTHM WITH 1ST DEGREE A-V BLOCK : LEFT AXIS DEVIATION : CANNOT RULE OUT SEPTAL INFARCT , AGE UNDETERMINED : ISCHEMIA SUGGESTED BY ST-T WAVE ABNORMALITY IN INFERIOR AND : ANTEROLATERAL LEADS : PROLONGED QT : ABNORMAL ECG : NO PREVIOUS ECGS AVAILABLE : Confirmed by Sil Soares ([id number]) on 08/29/2020 2:29:45 : PM Performing Organization Address City/State/Zipcode Ph one Number [facility] EKG * XR Chest Frontal Only (08/28/2020 6:15 PM EST) Specimen Narrative Performed At [facility] RADIOLOGY PROCEDURE INFORMATION: Exam: XR Chest, 1 View Exam date and time: 08/28/2020 6:17 PM Age: 64 years old Clinical indication: Shortness of breat h; Additional info: SOB TECHNIQUE: Imaging protocol: XR of the chest Views: 1 view. COMPARISON: No relevant prior studies available. FINDINGS: Tubes, catheters and devices: A right i nfusion port is present. Lungs: The lungs are normal. Pleural space: There is a small right p leural fluid collection present. Heart/Mediastinum: The heart is not enl arged. The pulmonary arteries are not enlarged. Diaphragm: There is nonspecific elevati on of the right hemidiaphragm. Bones/joints: Unremarkable IMPRESSION: 1. Small right pleural effusion. 2. Elevated right hemidiaphragm. THIS DOCUMENT HAS BEEN ELECTRONICALLY S IGNED BY REINALDO OCONNELL MD Procedure Note Interface, Received Via [employer] System - 08/28/2020 6:23 PM EST PROCEDURE INFORMATION: Exam: XR Chest, 1 View Exam date and time: 08/28/2020 6:17 PM Age: 64 years old Clinical indication: Shortness of breath; Additional info: SOB TECHNIQUE: Imaging protocol: XR of the chest Views: 1 view. COMPARISON: No relevant prior studies available. FINDINGS: Tubes, catheters and devices: A right infusion port is present. Lungs: The lungs are normal. Pleural space: There is a small right pleural fluid collection present. Heart/Mediastinum: The heart is not enlarged. The pulmonary arteries are not enlarged. Diaphragm: There is nonspecific elevation of the right hemidiaphragm. Bones/joints: Unremarkable IMPRESSION: 1. Small right pleural effusion. 2. Elevated right hemidiaphragm. THIS DOCUMENT HAS BEEN ELECTRONICALLY SIGNED BY REINALDO OCONNELL MD Performing Organization Address City/[facility] Ph one Number [facility] RADIOLOGY [address] [place] [address] * Lipid panel (08/28/2020 6:12 PM EST) Cholesterol 206 (H) <200 mg/dL [facility] CLINICAL PATHOLOGY Triglyceride 45 <150 mg/dL [facility] PATHOLOGY HDL Cholesterol 51 >40 mg/dL [facility] PATHOLOGY LDL Cholesterol 146 (H) <100 mg/dL [facility] PATHOLOGY VLDL 9 (L) 16 - 42 mg/dl [facility] CLINICAL PATHOLOGY Non HDL 155 (H) <130 mg/dL [facility] CLINICAL PATHOLOGY Specimen Plasma Performing Organization Address City/[facility] Number [facility] CLINICAL [address] [place], [place] [address] PATHOLOGY * Phosphorus Level (08/28/2020 6:12 PM EST) Phosphorus 2.9 2.5 - 4.5 mg/dL [facility] CLINICAL PATHOLOGY Specimen Plasma Performing Organization Address [facility] one Number [facility] CLINICAL [address] [place], [place] [address] PATHOLOGY * Magnesium Level (08/28/2020 6:12 PM EST) Magnesium 1.8 1.6 - 2.4 mg/dL [facility] CLINICAL PATHOLOGY Specimen Plasma Performing Organization Address [facility] one Number [facility] CLINICAL [address] [place], [place] [address] PATHOLOGY * Basic Metabolic Panel (08/28/2020 6:12 PM EST) [facility] Bicarbonate 21 (L) 22 - 29 mmol/L [facility] CLINICAL PATHOLOGY Chloride 104 98 - 107 mmol/L [facility] PATHOLOGY Creatinine 1.15 0.70 - 1.20 mg/dL [facility] CLINICAL PATHOLOGY Glucose 140 70 - 140 mg/dL [facility] PATHOLOGY Potassium 4.0 3.4 - 5.1 mmol/L [facility] PATHOLOGY Sodium 137 136 - 145 mmol/L [facility] PATHOLOGY Blood Urea 21 8 - 23 mg/dL [facility] Nitrogen CLINICAL PATHOLOGY Anion Gap 12 8 - 15 mmol/L [facility] PATHOLOGY Osmolality, Kamaljit 289 275 - 300 mosm/kg [facility] CLINICAL PATHOLOGY BUN/Cre Ratio 18 [facility] PATHOLOGY Calcium 8.9 8.8 - 10.2 mg/dL [facility] PATHOLOGY GFR Non 66 >60 mL/min/1.73m2 [facility] [place] 2009 CLINICAL CDK-EPI PATHOLOGY GFR 77 >60 mL/min/1.73m2 [facility] 2009 CLINICAL CKD-EPI PATHOLOGY Specimen Plasma Performing Organization Address [facility] one Number [facility] [address] [place], [place] [address] PATHOLOGY * Protime-INR (08/28/2020 6:12 PM EST) PT Patient 14.2 12.5 - 14.9 s [facility] Med Univ Clin Pathology Int'l 1.09Comment: Routine intensity [facility] pstate Normalized oral anticoagulation INR is Med Univ Clin Ratio typically 2.0-3.0. Target INR Patholo gy must be clinically individualized. Specimen Plasma Performing Organization Address [facility] Ph one Number [facility] CLINICAL [address] [place], [place] [address] [address] Clin Pathology * CBC (08/28/2020 6:12 PM EST) Pathologist [facility] White Blood 8.3 4 - 10 10*3/uL [facility] Cell [facility] Univ Clin Pathology Red Blood Cell 3.91 (L) 4.6 - 6.1 10*6/uL [facility] Clin Pathology Hemoglobin 12.0 (L) 13.5 - 18 g/dL [facility] Clin Pathology Hematocrit 35.5 (L) 41 - 53 % [facility] Clin Pathology Mean Cell 90.9 80 - 96 fL [facility] Volume [facility] Clin Pathology Mean Cell 30.7 27 - 33 pg [facility] Hemoglobin [facility] Clin Pathology Mean Cell Hgb 33.7 32.0 - 36.0 g/dL [facility] Clin Pathology Red Cell Dist 14.0 11.5 - 14.5 % [facility] Width [facility] Clin Pathology Platelet Count 220 150 - 400 10*3/uL [facility] Pathology Specimen EDTA Whole Blood Performing Organization Address [facility] Ph one Number [facility] [address] [place], [place] [address] [address] Clin Pathology * anti-Xa unfractionated heparin level (08/28/2020 6:12 PM EST) Pathologist [facility] Heparin 0.31 U/ml [facility] Unfractionated [facility] Clin Pathology Specimen Plasma Performing Organization Address City/[facility] one Number [facility] CLINICAL [address] [place], [place] [address] [address] 10 Clin Pathology * Hepatitis C antibody (08/28/2020 6:12 PM EST) Pathologist [facility] Hepatitis C Ab Non ReactiveComment: No Non Re[facility] of active [facility] infection. If recent exposure PATHOLOGY is suspected, test for HCV RNA. Specimen Serum Performing Organization Address [facility]/State/Zipcode Ph one Number [facility] [address] [place] [address] PATHOLOGY documented in this encounter Visit Diagnoses Diagnosis NSTEMI (non-ST elevated myocardial infa rction) Acute myocardial infarction, subendocar dial infarction, episode of care unspecified documented in this encounter Administered Medications Action Date Dose Rate Site Medication Order MAR Action 08/30/2020 9:07 AM EST 300 mg allopurinol (ZYLOPRIM) tablet 300 mg Given 300 mg, Oral, Daily Standard, First dose on Wed08/29/20 at 0900, For 30 days 300 mg Given 08/29/2020 8:01 AM EST 08/30/2020 9:11 AM EST 81 mg aspirin EC EC tablet 81 mg Given 81 mg, Oral, Daily Standard, First dos e on Wed08/29/20 at 0900, For 30 days 81 mg Given 08/29/2020 8:01 AM EST 08/29/2020 9:24 PM EST 20 mg atorvastatin (LIPITOR) tablet 20 mg Given 20 mg, Oral, Every evening, First dose (after last modification) on Wed08/29/20 at 2100, For 29 doses 08/30/2020 7:21 AM EST 2 puffs budesonide-formoterol (SYMBICORT) Given 160-4.5 MCG/ACT inhaler 2 puff 2 puff, Inhalation, 2 Times Daily, Firs t dose on Wed08/28/20 at 2000, For 14 days, Shake well before using Therapeutic sub for Advair, 2 puffs Given 08/29/2020 8:10 PM EST 2 puffs Given 08/29/2020 8:37 AM EST 08/30/2020 9:07 AM EST 0.5 mg clonazePAM (KLONOPIN) tablet 0.5 mg Given 0.5 mg, Oral, 2 Times Daily, First dose on Wed08/28/20 at 2100, For 30 days 0.5 mg Given 08/29/2020 9:24 PM EST 0.5 mg Given 08/29/2020 8:00 AM EST 08/29/2020 9:24 PM EST 50 mg doxepin (SINEQUAN) capsule 50 mg Given 50 mg, Oral, Nightly, First dose on Wed08/28/20 at 2200, For 30 days 50 mg Given 08/28/2020 9:24 PM EST 08/30/2020 9:16 AM EST 75 mg doxepin (SINEQUAN) capsule 75 mg Given 75 mg, Oral, Daily Standard, First dos e on Wed08/29/20 at 0900, For 30 days 75 mg Given 08/29/2020 8:01 AM EST 08/30/2020 9:12 AM EST 40 mg enoxaparin sodium (LOVENOX) injection 40 Given mg 40 mg, Subcutaneous, Daily Standard, First dose on Wed08/30/20 at 0900, For 30 days 08/30/2020 9:11 AM EST 25 mg hydrALAZINE (APRESOLINE) tablet 25 mg Given 25 mg, Oral, Every 8 hours Standard (3 times per day), First dose on Wed08/29/20 at 2100, For 30 days, Check vital signs before administering, 25 mg Given 08/29/2020 9:24 PM EST 08/30/2020 9:12 AM EST 12.5 mg hydrochlorothiazide (HYDRODIURIL) tablet Given 12.5 mg 12.5 mg, Oral, Daily Standard, First dose on Wed08/29/20 at 0900, For 30 days 12.5 mg Given 08/29/2020 8:01 AM EST 08/30/2020 9:09 AM EST 30 mg isosorbide mononitrate (IMDUR) 24 hr Given tablet 30 mg 30 mg, Oral, Daily Standard, First dos e on Wed08/30/20 at 0900, For 30 days, D O NOT CRUSH/CHEW, 08/29/2020 9:24 PM EST 250 mg levETIRAcetam (KEPPRA) tablet 250 mg Given 250 mg, Oral, 2 Times Daily, First dose on Wed08/28/20 at 2100, For 30 days 250 mg Given 08/29/2020 8:00 AM EST 250 mg Given 08/28/2020 9:24 PM EST 08/30/2020 9:08 AM EST 200 mg metoprolol (TOPROL-XL) 24 hr tablet 200 Given mg 200 mg, Oral, Daily Standard, First dose on Wed08/30/20 at 0900, For 30 days, Do not crush or chew, 08/30/2020 9:10 AM EST 20 mg pantoprazole (PROTONIX) EC tablet 20 mg Given 20 mg, Oral, Daily Standard, First dos e on Wed08/29/20 at 0900, For 30 days, D o not crush or chew, 20 mg Given 08/29/2020 8:01 AM EST perflutren lipid microspheres (DEFINITY ) injectable suspension 9.78 mg 9.78 mg (1.5 mL), Intravenous, Once PRN, Other, Echo imaging enhancement, Starting Wed08/29/20 at 0833, For 72 hours 08/30/2020 9:11 AM EST 2,000 Units vitamin D3 (CHOLECALCIFEROL) tablet Given 2,000 Units 2,000 Units, Oral, Daily Standard, First dose on Wed08/29/20 at 0900, For 30 days, 25 mcg vitamin D3 = 1,000 international units vitamin D3., 2,000 Units Given 08/29/2020 8:00 AM EST Action Date Dose Rate Site Medication Order MAR Action 08/28/2020 9:24 PM EST 80 mg atorvastatin (LIPITOR) tablet 80 mg Given 80 mg, Oral, Every evening, First dose on Wed08/28/20 at 2100, For 30 days 08/29/2020 8:00 AM EST 0.1 mg cloNIDine (CATAPRES) tablet 0.1 mg Given 0.1 mg, Oral, 2 Times Daily, First dose on Wed08/28/20 at 2100, For 30 days, Check vital signs before administering, 0.1 mg Given 08/28/2020 9:24 PM EST 08/29/2020 8:01 AM EST 75 mg clopidogrel (PLAVIX) tablet 75 mg Given 75 mg, Oral, Daily Standard, First dos e on Wed08/29/20 at 0900, For 30 days 08/29/2020 1:39 AM EST 12.5 mcg fentaNYL (SUBLIMAZE) (PF) injection 12.5 New Bag mcg 12.5 mcg, Intravenous, Once, Deloris 08/29/20 at 0115, For 1 dose 08/29/2020 9:00 AM EST 1,400 Units/hr 28 mL/hr heparin in NaCl 0.45 % LOW DOSE WITH Rate/Dose BOLUS infusion 50 units/mL Verify 600-3,000 Units/hr (12-60 mL/hr), Intravenous, at 12-60 mL/hr, Continuous , Starting Wed08/28/20 at 1815, For 30 days, Must Maintain current rate from Outside Facility. Adult Transfer to Low Dose With Bolus Heparin Protocol., Patient Weight for Order: 104.3, Low Dose Initial Dose (units/kg/hr): 12, Lo w Dose Maximum Initial Dose (units/hr): 1000, Low Dose Initial Bolus Dose (units/kg): 60, Low Dose Maximum Bolus Dose (units): 5000, Low Dose Anti-Xa <0.20 Maintenance Dose Adjustment (units/hr): 200, Low Dose Anti-Xa <0.20 Bolus Dose (units/kg): 25, Low Dose Anti-Xa <0.20 Additional Instructions: 25 units/kg bolus (Comment: then increase rate by 4 mL/hr (200 units/hr)), Low Dose Anti-Xa <0.20 Instructions (cont.): Next anti-Xa unfractionated heparin level (Comment: 6 hrs after dose adjustment), Low Dose Anti-Xa 0.20-0.29 Maintenance Dose Adjustment (units/hr): 100, Low Dose Anti-Xa 0.20-0.29 Bolus Dose (units/kg) : 0, Low Dose Anti-Xa 0.20-0.29 Additiona l Instructions: Increase rate by 2 mL/hr (100 units/hr), Low Dose Anti-Xa 0.20-0.29 Instructions (cont.): Next anti-Xa unfractionated heparin level (Comment: 6 hrs after dose adjustment), Low Dose Anti-Xa 0.3-0.5 Maintenance Dose Adjustment (units/hr): 0, Low Dose Anti-Xa 0.3-0.5 Bolus Dose (units/kg): 0, Low Dose Anti-Xa 0.3-0.5 Additional Instructions: No Change, Low Dose Anti-Xa 0.3-0.5 Instructions (cont.): Next anti-Xa unfractionated heparin level (Comment: 6 hrs after dose adjustment), Low Dose Anti-Xa 0.51-0.70 Maintenance Dose Adjustment (units/hr): -100, Low Dose Anti-Xa 0.51-0.70 Bolus Dose (units/kg): 0, Low Dose Anti-Xa 0.51-0.70 Additional Instructions: Descrease rate by 2 mL/hr (100 units/hr), Low Dose Anti-Xa 0.51-0.70 Instructions (cont.): Next anti-Xa unfractionated heparin level (Comment: 6 hrs after dose adjustment), Low Dose Anti-Xa 0.71-79 Maintenance Dose Adjustment (units/hr): -150, Low Dose Anti-Xa 0.71-79 Bolus Dose (units/kg): 0, Low Dose Anti-Xa 0.71-79 Additional Instructions: Descrease rate by 3 mL/hr (150 units/hr), Low Dose Anti-Xa 0.71-7 9 Instructions (cont.): Next anti-Xa unfractionated heparin level (Comment: 6 hrs after dose adjustment), Low Dose Anti-Xa 0.8-1.0 Maintenance Dose Adjustment (units/hr): -200, Low Dose Anti-Xa 0.8-1.0 Bolus Dose (units/kg): 0, Low Dose Anti-Xa 0.8-1.0 Additional Instructions: Stop Infusion for 1 hour (Comment: then decrease rate by 4 mL/hr (200 units/hr)), Low Dose Anti-Xa 0.8-1.0 Instructions (cont.): Next anti-Xa unfractionated heparin level 6 hrs after dose adjustment, Low Dose Anti-Xa >1.0 Maintenance Dose Adjustmen t (units/hr): -250, Low Dose Anti-Xa >1.0 Bolus Dose (units/kg): 0, Low Dose Anti-Xa >1.0 Additional Instructions: Stop Infusion for at least 2 hours and notify HO. Obtain Heparin AntiXa level every 2 hours until level is less than 0.50., Low Dose Anti-Xa >1.0 Instructions (cont.): Resume infusion after descreasing the dose rate by 5 mL/hr (250 units/hr) 1,400 Units/hr 28 mL/hr Rate/Dose Verify 08/29/2020 8:00 AM EST 1,400 Units/hr 28 mL/hr Rate/Dose Verify 08/29/2020 7:00 AM EST 08/28/2020 9:03 PM EST 1 g 100 mL/hr magnesium sulfate in dextrose 5 % New Bag infusion (premix) 1 g 1 g, Intravenous, Administer over 60 Minutes, Once, Wed08/28/20 at 2030, Fo r 1 dose 08/29/2020 9:24 PM EST 100 mg metoprolol (LOPRESSOR) tablet 100 mg Given 100 mg, Oral, 2 Times Daily, First dose on Wed08/28/20 at 2100, For 3 doses 100 mg Given 08/29/2020 8:00 AM EST 100 mg Given 08/28/2020 9:24 PM EST 08/28/2020 11:00 PM EST 100 mL/hr NaCl infusion 0.9 % Rate/Dose at 100 mL/hr, Intravenous, Continuous, Verify Starting Wed08/28/20 at 1900, For 5 hours 100 mL/hr Rate/Dose Verify 08/28/2020 10:00 PM EST 100 mL/hr Rate/Dose Verify 08/28/2020 9:00 PM EST 08/29/2020 8:00 AM EST 1 inch nitroglycerin ointment 2 % 1 inch Given 1 inch, Transdermal, Every 6 hours, First dose on Wed08/28/20 at 1900, For 2 days 1 inch Given 08/29/2020 1:39 AM EST 1 inch Given 08/28/2020 8:23 PM EST documented in this encounter
--- OUTSIDE RECORDS SUMMARY | 2020-10-30 01:48 | CCD ---
Author Author [facility] Organization [facility] Address Unknown Phone Unavailable Care Team Providers Care Public Relations Intern Name Role Phone Obed Lara FOOD MANAGER Unavailable Unavailable Dietsche, M Marycarmen FOOD MANAGER Unavailable Unavailable Dietsche, M Marycarmen FOOD MANAGER Unavailable Unavailable Dietsche, M Marycarmen FOOD MANAGER Unavailable Unavailable Dietsche, M Marycarmen FOOD MANAGER Unavailable Unavailable Dietsche, M Marycarmen FOOD MANAGER Unavailable Unavailable Dietsche, M Marycarmen FOOD MANAGER Unavailable Unavailable Dietsche, M Marycarmen FOOD MANAGER Unavailable Unavailable Dietsche, M Marycarmen FOOD MANAGER Unavailable Unavailable Dietsche, M Marycarmen FOOD MANAGER Unavailable Unavailable Dietsche, M Marycarmen FOOD MANAGER Unavailable Unavailable Dietsche, M Marycarmen FOOD MANAGER Unavailable Unavailable Erika Garcia MD Unavailable Unavailable Erika Garcia MD Unavailable Unavailable Erika Garcia MD Unavailable Unavailable Erika Garcia MD Unavailable Unavailable Erika Garcia MD Unavailable Unavailable Erika Garcia MD Unavailable Unavailable Erika Garcia MD Unavailable Unavailable Erika Garcia MD Unavailable Unavailable Erika Garcia MD Unavailable Unavailable Erika Garcia MD Unavailable Unavailable Erika Garcia MD Unavailable Unavailable Erika Garcia MD Unavailable Unavailable Erika Garcia MD Unavailable Unavailable Erika Garcia MD Unavailable Unavailable Erika Garcia MD Unavailable Unavailable Erika Garcia MD Unavailable Unavailable Erika Garcia MD Unavailable Unavailable Erika Garcia MD Unavailable Unavailable Erika Garcia MD Unavailable Unavailable Erika Garcia MD Unavailable Unavailable Erika Garcia MD Unavailable Unavailable Erika Garcia MD Unavailable Unavailable SleErika rodriguez MD Unavailable Unavailable SleAlexander rodriguezjtech Unavailable Unavailable SleAlexander rodriguezjtech Unavailable Unavailable SleCampos rodrigueztech Unavailable Unavailable SleAlexander rodriguezjtech Unavailable Unavailable SleAlexander rodriguezjtech Unavailable Unavailable SletatikaAlexanderjtech Unavailable Unavailable SleAlexander rodriguezjtech Unavailable Unavailable SleAlexander rodriguezjtech Unavailable Unavailable SleAlexander rodriguezjtech Unavailable Unavailable SleAlexander rodriguezjtech Unavailable Unavailable SleAlexander rodriguezjtech Unavailable Unavailable SleAlexander rodriguezjtech Unavailable Unavailable SleAlexander rodriguezjtech Unavailable Unavailable SleAlexander rodriguezjtech Unavailable Unavailable SleAlexander rodriguezjtech Unavailable Unavailable Alexander Garciajtech Unavailable Unavailable Alexander Garciajtech Unavailable Unavailable SleAlexander rodriguezjtech Unavailable Unavailable Alexander Garciajtech Unavailable Unavailable Alexander Garciajtech Unavailable Unavailable SleAlexander rodriguezjtech Unavailable Unavailable Alexander Garciajtech Unavailable Unavailable Alexander Garciajtech Unavailable Unavailable SleAlexander rodriguezjtech Unavailable Unavailable SleAlexander rodriguezjtech Unavailable Unavailable SleAlexander rodriguezjtech Unavailable Unavailable Alexander Garciajtech Unavailable Unavailable Alexander Garciajvirgil GRAY Unavailable Unavailable Erika Garcia MD Unavailable Unavailable SleAlexander rodriguezjtech Unavailable Unavailable SleAlexander rodriguezjtech Unavailable Unavailable SleAlexander rodriguezjtech Unavailable Unavailable SleAlexander rodriguezjtech Unavailable Unavailable ABIGAIL, DEBANIK Unavailable Unavailable ABIGAIL, DEBANIK Unavailable Unavailable ABIGAIL, DEBANIK Unavailable Unavailable ABIGAIL, DEBANIK Unavailable Unavailable ABIGAIL, DEBANIK Unavailable Unavailable ABIGAIL, DEBANIK Unavailable Unavailable BAIGAIL, DEBANIK Unavailable Unavailable ABIGAIL, DEBANIK Unavailable Unavailable ABIGAIL, DEBANIK Unavailable Unavailable ABIGAIL, DEBANIK Unavailable Unavailable ABIGAIL, DEBANIK Unavailable Unavailable ABIGAIL, DEBANIK Unavailable Unavailable ABIGAIL, DEBANIK Unavailable Unavailable ABIGAIL, DEBANIK Unavailable Unavailable ABIGAIL, DEBANIK Unavailable Unavailable ABIGAIL, DEBANIK Unavailable Unavailable ABIGAIL, DEBANIK Unavailable Unavailable ABIGAIL, DEBANIK Unavailable Unavailable ABIGAIL, DEBANIK Unavailable Unavailable ABIGAIL, DEBANIK Unavailable Unavailable ABIGAIL, DEBANIK Unavailable Unavailable ABIGAIL, DEBANIK Unavailable Unavailable Shazia HOLLIDAY MD Unavailable Unavailable Shazia HOLLIDAY MD Unavailable Unavailable Shazia HOLLIDAY MD Unavailable Unavailable Shazia HOLLIDAY MD Unavailable Unavailable Shazia HOLLIDAY MD Unavailable Unavailable Shazia HOLLIDAY MD Unavailable Unavailable Shazia HOLLIDAY MD Unavailable Unavailable Shazia HOLLIDAY MD Unavailable Unavailable Shazia HOLLIDAY MD Unavailable Unavailable Shazia HOLLIDAY MD Unavailable Unavailable Shazia HOLLIDAY MD Unavailable Unavailable Shazia HOLLIDAY MD Unavailable Unavailable Shazia HOLLIDAY MD Unavailable Unavailable Shazia HOLLIDAY MD Unavailable Unavailable Shazia HOLLIDAY MD Unavailable Unavailable Shazia HOLLIDAY MD Unavailable Unavailable Shazia HOLLIDAY MD Unavailable Unavailable Shazia HOLLIDAY MD Unavailable Unavailable Shazia HOLLIDAY MD Unavailable Unavailable Shazia HOLLIDAY MD Unavailable Unavailable Shazia HOLLIDAY MD Unavailable Shazia Gill MD Unavailable Shazia Gill MD Unavailable Unavailable Shazia HOLLIDAY MD Unavailable Unavailable Shazia HOLLIDAY MD Unavailable Unavailable Shazia HOLLIDAY MD Unavailable Unavailable Shazia HOLLIDAY MD Unavailable Unavailable Shazia HOLLIDAY MD Unavailable Shazia Gill MD Unavailable Shazia Gill MD Unavailable Shazia Gill MD Unavailable Shazia Gill MD Unavailable Unavailable Shazia HOLLIDAY MD Unavailable Unavailable Shazia HOLLIDAY MD Unavailable Unavailable Shazia HOLLIDAY MD Unavailable Unavailable Shazia HOLLIDAY MD Unavailable Unavailable Shazia HOLLIDAY MD Unavailable Unavailable Shazia HOLLIDAY MD Unavailable Unavailable Shazia HOLLIDAY MD Unavailable Unavailable Shazia HOLLIDAY MD Unavailable Unavailable Shazia HOLLIDAY MD Unavailable Unavailable Shazia HOLLIDAY MD Unavailable Unavailable Shazia HOLLIDAY MD Unavailable Unavailable Shazia HOLLIDAY MD Unavailable Unavailable Shazia HOLLIDAY MD Unavailable Unavailable Shazia HOLLIDAY MD Unavailable Shazia Gill MD Unavailable Unavailable Shazia HOLLIDAY MD Unavailable Unavailable Shazia HOLLIDAY MD Unavailable Unavailable CHARLAMB, J DRU GRAY Unavailable Unavailable CHARLAMB, J DRU GRAY Unavailable Unavailable CHARLAMB, J DRU GRAY Unavailable Unavailable CHARLAMB, J DRU GRAY Unavailable Unavailable CHARLAMB, J DRU MD Unavailable Unavailable CHARLAMB, J DRU MD Unavailable Unavailable CHARLAMB, J DRU MD Unavailable Unavailable CHARLAMB, J DRU MD Unavailable Unavailable CHARLAMB, J DRU MD Unavailable Unavailable CHARLAMB, J DRU MD Unavailable Unavailable CHARLAMB, J DRU MD Unavailable Unavailable CHARLAMB, J DRU MD Unavailable Unavailable CHARLAMB, J DRU MD Unavailable Unavailable CHARLAMB, J DRU MD Unavailable Unavailable CHARLAMB, J DRU MD Unavailable Unavailable CHARLAMB, J DUR MD Unavailable Unavailable CHARLAMB, J DRU MD Unavailable Unavailable CHARLAMB, J DRU MD Unavailable Unavailable CHARLAMB, J DRU MD Unavailable Unavailable CHARLAMB, J DRU MD Unavailable Unavailable CHARLAMB, J DRU MD Unavailable Unavailable CHARLAMB, J DRU MD Unavailable Unavailable CHARLAMB, J DRU MD Unavailable Unavailable CHARLAMB, J DRU MD Unavailable Unavailable CHARLAMB, J DRU MD Unavailable Unavailable CHARLAMB, J DRU MD Unavailable Unavailable CHARLAMB, J DRU MD Unavailable Unavailable CHARLAMB, J DRU MD Unavailable Unavailable Re-disclosure Warning The records that you are about to access may contain information from federally-assisted alcohol or drug abuse programs. If such information is present, then the following federally mandated warning applies: This information has been disclosed to you from records protected by federal confidentiality rules (42 CFR part 2). The federal rules prohibit you from making any further disclosure of this information unless further disclosure is expressly permitted by the written consent of the person to whom it pertains or as otherwise permitted by 42 CFR part 2. A general authorization for the release of medical or other information is NOT sufficient for this purpose. The Federal rules restrict any use of the information to criminally investigate or prosecute any alcohol or drug abuse patient.The records that you are about to access may contain highly sensitive health information, the redisclosure of which is protected by Article 27-F of the [facility] Public Health law. If you continue you may have access to information: Regarding HIV / AIDS; Provided by facilities licensed or operated by the [facility] Office of Mental Health; or Provided by the [facility] Office for People With Developmental Disabilities. If such information is present, then the following [facility] mandated warning applies: This information has been disclosed to you from confidential records which are protected by state law. State law prohibits you from making any further disclosure of this information without the specific written consent of the person to whom it pertains, or as otherwise permitted by law. Any unauthorized further disclosure in violation of state law may result in a fine or nursing home sentence or both. A general authorization for the release of medical or other information is NOT sufficient authorization for further disc losure. Allergies and Adverse Reactions Type Description Substance Reaction Status Data Source(s ) nsaids bee stings nsaids bee stings nsaids bee stings Unknown Act scot eCW1 ([facility]) Sulfacet Sulfacet Sulfacet Unknown Active eCW1 ([facility]) Encounters Encounter Providers Location Date Indications Data Source(s ) Outpatient Attender: Erika Garcia MD [email or web address] 1210/2019 12:00:00 AM EST - 09/17/2020 11:58:29 AM EST [facility] Inpatient Attender: RICHI QUEZADA ttender: DRU HOLLIDAY MDAdmitter: RICHI HAYESReferrer: DRU HOLLIDAY MD [id number] 08/28/2020 12:00:0 0 AM EST - 08/30/2020 12:48:00 PM EST Non-ST elevation (NSTEMI) myocardial infarction [facility] Non-ST elevation (NSTEMI) myocardial inf arction Patient discharged. [facility] [address] [place] [phone] 04/09/2020 12:00:00 AM EDT eCW1 ([facility]) Outpatient Referrer: Marycarmen Lara NP 04/08/2020 02:23:00 PM EDT [facility] Outpatient Referrer: Marycarmen Lara NP 03/05/2020 02:43:00 PM EDT [facility] Outpatient Referrer: Marycarmen Lara NP 12/14/2019 05:10:00 AM EST [facility] Outpatient Referrer: Marycarmen Lara NP 11/12/2019 07:09:00 PM EST [facility] Outpatient Referrer: Marycarmen Lara NP 11/12/2019 06:41:00 PM EST [facility] [address] [place] [phone] 10/06/2019 12:00:00 AM EST eCW1 ([facility]) [facility] [address] [place] [phone] 10/03/2019 12:00:00 AM EST eCW1 ([facility]) [facility] [address] [place] [phone] 09/29/2019 12:00:00 AM EST eCW1 ([facility]) Medications Medication Brand Name Start Date Product Form Dose Route Admi nistrative Instructions Pharmacy Instructions Status Indications Reaction Description Data Source(s) Prednisone 10 MG Oral Tablet predniSONE (DELTASONE) 10 MG tablet predniSONE (DELTASONE) 10 MG tablet 09/13/2020 12:00:00 AM EST active TAKE 6 TABLETS DAILY ON DAYS 1 3 5 DAILY ON DAYS 4 5 4 DAILY ON DAYS 6 7 3 DAILY ON DAYS 8 9 2 DAILY ON DAYS 10 11 AND 1 DAILY ON DAYS [facility] 24 HR metoprolol succinate 50 MG Extende d Release Oral Tablet metoprolol (TOPROL-XL) 24 hr tablet 200 mg metoprolol (TOPROL-XL) 24 hr tablet 200 mg 08/30/2020 09:00:00 AM EST 200 mg Oral active 200 mg, Oral, Daily Standard, First dose on Wed08/30/20 at 0900, For 30 days
Do not crush or chew
[facility] Medication administered onsite 24 HR Isosorbide Mononitrate 30 MG Exten ded Release Oral Tablet isosorbide mononitrate (IMDUR) 24 hr tablet 30 mg isosorbide mononitrate (IMDUR) 24 hr tablet 30 mg 08/30/2020 09:00:00 AM EST 30 mg Oral activ e 30 mg, Oral, Daily Standard, First dose on Wed08/30/20 at 0900, For 30 days
DO NOT CRUSH/CHEW
[facility] Medication administered onsite 0.4 ML Enoxaparin sodium 100 MG/ML Prefi lled Syringe enoxaparin sodium (LOVENOX) injection 40 mg enoxaparin sodium (LOVENOX) injection 40 mg 08/30/2020 09:00:00 AM EST 40 mg Subcutaneous active 40 mg, Subcutaneous, Daily Standard, First dose on Wed08/30/20 at 0900, For 30 days [facility] Medication administered onsite atorvastatin 20 MG Oral Tablet atorvastatin (LIPITOR) 20 MG tablet atorvastatin (LIPITOR) 20 MG tablet 08/30/2020 12:00:00 AM EST active [facility] 24 HR Isosorbide Mononitrate 30 MG Exten ded Release Oral Tablet isosorbide mononitrate (IMDUR) 30 MG 24 hr tablet isosorbide mononitrate (IMDUR) 30 MG 24 hr tablet 08/30/2020 12:00:00 AM EST 30 mg Oral active Take 30 mg by mouth [facility] Hydrochlorothiazide 12.5 MG Oral Tablet hydrochlorothiazide (HYDRODIURIL) 12.5 MG tablet hydrochlorothiazide (HYDRODIURIL) 12.5 MG tablet 08/30 12:00:00 AM EST 12.5 mg Oral active Take 12.5 mg by mouth [facility] Hydralazine Hydrochloride 25 MG Oral Tab let hydrALAZINE (APRESOLINE) 25 MG tablet hydrALAZINE (APRESOLINE) 25 MG tablet 08/30/2020 12:00:00 AM EST 25 mg Oral active Take 25 mg by mouth [facility] atorvastatin 20 MG Oral Tablet Atorvastatin Calcium 20 MG Oral Tablet (LIPITOR) Atorvastatin Calcium 20 MG Oral Tablet (LIPITOR) 08/30/2020 12:00:00 AM EST 20 mg Oral active Take 1 tablet by mouth e very evening [facility] Hydralazine Hydrochloride 25 MG Oral Tab let hydrALAZINE HCl 25 MG Oral Tablet (APRESOLINE) hydrALAZINE HCl 25 MG Oral Tablet (APRESOLINE) 020 12:00:00 AM EST 25 mg Oral active Take 1 tablet by mouth every 8 (eight) hours [facility] 24 HR metoprolol succinate 200 MG Extend ed Release Oral Tablet Metoprolol Succinate ER 200 MG Oral Tablet Extended Release 24 Hour (TOPROL-XL) Metoprolol Succinate ER 200 MG Oral Tablet Extended Release 24 Hour (TOPROL-XL) 08/30/2020 12:00:00 AM EST 200 mg Oral active Take 1 t ablet by mouth daily [facility] Levetiracetam 250 MG Oral Tablet levETIRAcetam 250 MG Oral Tablet (Keppra) levETIRAcetam 250 MG Oral Tablet (Keppra) 08/30/2020 12:00:00 AM EST 250 mg Oral active Take 1 tablet by abel th Two Times Daily [facility] Hydrochlorothiazide 12.5 MG Oral Tablet hydroCHLOROthiazide 12.5 MG Oral Tablet (HYDRODIURIL) hydroCHLOROthiazide 12.5 MG Oral Tablet (HYDRODIURIL) 08/30/2020 12:00:00 AM EST 12.5 mg Oral active Take 1 tablet by mouth daily [facility] 24 HR Isosorbide Mononitrate 30 MG Exten ded Release Oral Tablet Isosorbide Mononitrate ER 30 MG Oral Tablet Extended Release 24 Hour (IMDUR) Isosorbide Mononitrate ER 30 MG Oral Tablet Extended Release 24 Hour (IMDUR) 08/30/2020 12:00:00 AM EST 30 mg Oral active Take 1 t ablet by mouth daily [facility] Levetiracetam 250 MG Oral Tablet levETIRAcetam (KEPPRA ) 250 MG tablet levETIRAcetam (KEPPRA) 250 MG tablet 08/30/2020 12:00:00 AM EST 250 m g Oral active Take 250 mg by mouth [facility] 24 HR metoprolol succinate 200 MG Extend ed Release Oral Tablet [Toprol] TOPROL XL 200 MG 24 hr tablet TOPROL XL 200 MG 24 hr tablet 08/30/2020 12:00:00 AM EST active [facility] Hydralazine Hydrochloride 25 MG Oral Tab let hydrALAZINE (APRESOLINE) tablet 25 mg hydrALAZINE (APRESOLINE) tablet 25 mg 08/29/2020 09:00:00 PM EST 25 mg Oral active 25 mg, Oral, E very 8 hours Standard (3 times per day), First dose on Wed08/29/20 at 2100, For 30 days
Check vital signs before administering
[facility] Medication administered onsite atorvastatin 20 MG Oral Tablet atorvastatin (LIPITOR) tablet 20 mg atorvastatin (LIPITOR) tablet 20 mg 08/29/2020 09:00:00 PM EST 20 mg Oral active 20 mg, Oral, Every evening, First dose (after last modification) on [place] 08/29/20 at 2100, For 29 doses [facility] Medication administered onsite Cholecalciferol 1000 UNT Oral Tablet vit lugo D3 (CHOLECALCIFEROL) tablet 2,000 Units vitamin D3 (CHOLECALCIFEROL) tablet 2,000 Units 2019 09:00:00 AM EST 2000 U Oral active 2,000 Un its, Oral, Daily Standard, First dose on [facility] 08/29/20 at 0900, For 30 days
25 mcg vitamin D3 = 1,000 international units vitamin D3.
[facility] Medication administered onsite pantoprazole 20 MG Delayed Release Oral Tablet pantoprazole (PROTONIX) EC tablet 20 mg pantoprazole (PROTONIX) EC tablet 20 mg 08/29/2020 09:00:[address] 20 mg Oral active 20 mg, Ora l, Daily Standard, First dose on [facility] 08/29/20 at 0900, For 30 days
Do not crush or chew
[facility] Medication administered onsite Hydrochlorothiazide 25 MG Oral Tablet hy drochlorothiazide (HYDRODIURIL) tablet 12.5 mg hydrochlorothiazide (HYDRODIURIL) tablet 12.5 mg 08/29 09:00:00 AM EST 12.5 mg Oral active 12.5 mg, Oral, Daily Standard, First dose on [facility] 08/29/20 at 0900, For 30 days [facility] Medication administered onsite doxepin (SINEQUAN) capsule 75 mg 08/29/2020 09:00:00 AM EST 75 mg Oral active 75 mg, Oral, Daily Standard, First dose on [facility] 08/29/20 at 0900, For 30 days [facility] Medication administered onsite Allopurinol 300 MG Oral Tablet allopurinol (ZYLOPRIM) tablet 300 mg allopurinol (ZYLOPRIM) tablet 300 mg 08/29/2020 09:00:00 AM EST 300 mg Oral active 300 mg, Oral, Daily Standard, First dose on [facility] 08/29 at 0900, For 30 days [facility] Medication administered onsite clopidogrel 75 MG Oral Tablet clopidogrel (PLAVIX) tab let 75 mg clopidogrel (PLAVIX) tablet 75 mg 08/29/2020 09:00:00 AM EST 75 mg Oral aborted 75 mg, Oral, Daily Standard, First dose on [place] 08/29/20 at 0900, For 30 days [facility] Medication administered onsite Aspirin 81 MG Delayed Release Oral Tablet aspirin EC E C tablet 81 mg aspirin EC EC tablet 81 mg 08/29/2020 09:00:00 AM EST 81 mg Oral ac tive 81 mg, Oral, Daily Standard, First dose on [place] 08/29/20 at 0900, For 30 days [facility] Medication administered onsite perflutren lipid microspheres (DEFINITY) injectable suspensi on 9.78 mg [id number] 08/29/2020 08:33:29 AM EST 1.5 mL Intravenous active 9.78 mg (1.5 mL), Intravenous, Once PRN, Other, Echo imaging enhancement, Starting [place] 08/29/20 at 0833, For 72 hours [facility] Medication administered onsite fentaNYL (SUBLIMAZE) (PF) injection 12.5 mcg 8084-3831-74 08/29/2020 01:15:00 AM EST 12.5 ug Intravenous completed 12 .5 mcg, Intravenous, Once, [facility] 08/29/20 at 0115, For 1 dose [facility] Medication administered onsite Doxepin Hydrochloride 50 MG Oral Capsule doxepin (SINE LEON) capsule 50 mg doxepin (SINEQUAN) capsule 50 mg 08/28/2020 10:00:00 PM EST 50 mg Oral active 50 mg, Oral, Nightly , First dose on Wed08/28/20 at 2200, For 30 days [facility] Medication administered onsite Metoprolol Tartrate 50 MG Oral Tablet metoprolol (LOPR ESSOR) tablet 100 mg metoprolol (LOPRESSOR) tablet 100 mg 08/28/2020 09:00:00 PM EST 100 m g Oral completed 100 mg, Oral, 2 Times Daily, First dose on Wed08/28/20 at 2100, For 3 doses [facility] Medication administered onsite Levetiracetam 250 MG Oral Tablet levETIRAcetam (KEPPRA ) tablet 250 mg levETIRAcetam (KEPPRA) tablet 250 mg 08/28/2020 09:00:00 PM EST 250 m g Oral active 250 mg, Oral, 2 Times Daily, First dose on Wed08/28/20 at 2100, For 30 days [facility] Medication administered onsite atorvastatin 40 MG Oral Tablet atorvastatin (LIPITOR) tablet 80 mg atorvastatin (LIPITOR) tablet 80 mg 08/28/2020 09:00:00 PM EST 80 mg Oral aborted 80 mg, Oral, Every evening, First dose on Wed08/28/20 at 2100, For 30 days [facility] Medication administered onsite Clonidine Hydrochloride 0.1 MG Oral Tablet cloNIDine ( CATAPRES) tablet 0.1 mg cloNIDine (CATAPRES) tablet 0.1 mg 08/28/2020 09:00:00 PM EST 0.1 mg Oral aborted 0.1 mg, Oral, 2 Time s Daily, First dose on Wed08/28/20 at 2100, For 30 days
Check vital signs before administering
[facility] Medication administered onsite Clonazepam 1 MG Oral Tablet clonazePAM (KLONOPIN) tabl et 0.5 mg clonazePAM (KLONOPIN) tablet 0.5 mg 08/28/2020 09:00:00 PM EST 0.5 mg Oral active 0.5 mg, Oral, 2 Times Daily, First dose on Wed 0 at 2100, For 30 days [facility] Medication administered onsite magnesium sulfate in dextrose 5 % infusion (premix) 1 g [id number] -[id number] 08/28/2020 08:30:00 PM EST 1 g Intravenous completed 1 g, Intravenous, Administer over 60 Minutes, Once, Wed08/28/20 at 2030, For 1 dose [facility] Medication administered onsite 60 ACTUAT Budesonide 0.16 MG/ACTUAT / fo rmoterol fumarate 0.0045 MG/ACTUAT Metered Dose Inhaler budesonide-formoterol (SYMBICORT) 160-4.5 MCG/ACT inhaler 2 puff budesonide-formoterol (SYMBICORT) 160-4.5 MCG/ACT inha ler 2 puff 08/28/2020 08:00:00 PM EST 2 {puff} Inhalation active 2 puff, Inhalation, 2 Times Daily, First dose on Wed08/28/20 at 2000, For 14 days
Shake well before usingTherapeutic sub for Advair
[facility] Medication administered onsite NaCl infusion 0.9 % [id number] 08/28/2020 07:00:00 PM EST Intravenous completed at 100 mL/hr, Intrav enous, Continuous, Starting Wed08/28/20 at 1900, For 5 hours [facility] Medication administered onsite Nitroglycerin 0.02 MG/MG Topical Ointment nitroglyceri n ointment 2 % 1 inch nitroglycerin ointment 2 % 1 inch 08/28/2020 07:00:00 PM EST 1 [ in_us] Transdermal aborted 1 inch, Trans dermal, Every 6 hours, First dose on Wed08/28/20 at 1900, For 2 days [facility] Medication administered onsite albuterol (PROVENTIL HFA) inhaler 2 puff [id number] 08/28/2020 06:03:37 PM EST 2 {puff} Inhalation active 2 pu ff, Inhalation, Every 6 hours PRN, Wheezing, Starting Wed08/28/20 at 1803, For 4 days
Shake the inhaler well before each spray.
[facility] Medication administered onsite sildenafil 100 MG Oral Tablet sildenafil (VIAGRA) 100 MG tablet sildenafil (VIAGRA) 100 MG tablet 07/12/2020 12:00:00 AM EDT active [facility] POLYETHYLENE GLYCOL 3350 142 MG/ML Oral Solution polyethylene glycol (GLYCOLAX) 17 GM/SCOOP powder polyethylene glycol (GLYCOLAX) 17 GM/SCOOP powder 06/19 12:00:00 AM EDT active [facility] Omeprazole 20 MG Delayed Release Oral Ca psule omeprazole (PRILOSEC) 20 MG capsule omeprazole (PRILOSEC) 20 MG capsule 07/12/2020 12:00:00 AM EDT active [facility] Levofloxacin 500 MG Oral Tablet levofloxacin (LEVAQUIN ) 500 MG tablet levofloxacin (LEVAQUIN) 500 MG tablet 06/19/2020 12:00:00 AM EDT 50 0 mg Oral active Take 500 mg by mouth lalo y [facility] Metronidazole 500 MG Oral Tablet metroNIDAZOLE (FLAGYL ) 500 MG tablet metroNIDAZOLE (FLAGYL) 500 MG tablet 06/19/2020 12:00:00 AM EDT 500 m g Oral active Take 500 mg by mouth 3 (thre e) times a day [facility] Diphenhydramine Hydrochloride 50 MG Oral Capsule [Banophen] BANOPHEN 50 MG capsule BANOPHEN 50 MG capsule 06/14/2020 12:00:00 AM EDT active [facility] Allopurinol 300 MG Oral Tablet allopurinol (ZYLOPRIM) 300 MG tablet allopurinol (ZYLOPRIM) 300 MG tablet 06/14/2020 12:00:00 AM EDT active [facility] Aspirin 81 MG Delayed Release Oral Tablet ASPIRIN LOW DOSE 81 MG EC tablet ASPIRIN LOW DOSE 81 MG EC tablet 06/14/2020 12:00:00 AM EDT active [facility] Clonidine Hydrochloride 0.1 MG Oral Tablet cloNIDine ( CATAPRES) 0.1 MG tablet cloNIDine (CATAPRES) 0.1 MG tablet 0.1 mg Oral abo rted Take 0.1 mg by mouth Two Times Daily [facility] Metoprolol Tartrate 50 MG Oral Tablet metoprolol (LOPR ESSOR) 50 MG tablet metoprolol (LOPRESSOR) 50 MG tablet 50 mg Oral ab orted Take 50 mg by mouth Two Times Daily [facility] sildenafil 100 MG Oral Tablet sildenafil (VIAGRA) 100 MG tablet sildenafil (VIAGRA) 100 MG tablet 100 mg Oral aborted Take 100 mg by mouth as needed for Erectile Dysfunction [facility] levETIRAcetam (KEPPRA PO) Oral aborte d Take by mouth Two Times Daily [facility] 24 HR Levetiracetam 500 MG Extended Rele ase Oral Tablet levETIRAcetam ER 500 MG Oral Tablet Extended Release 24 Hour (KEPPRA XR) levETIRAcetam ER 500 MG Oral Tablet Extended Release 24 Hour (KEPPRA XR) 1000 mg Oral aborted Take 1,000 mg by mouth nightly [facility] Loratadine 10 MG Oral Tablet loratadine (CLARITIN) 10 MG tablet loratadine (CLARITIN) 10 MG tablet 10 mg Oral aborted Take 10 mg by mouth daily [facility] Hydrochlorothiazide 25 MG Oral Tablet hy drochlorothiazide (HYDRODIURIL) 25 MG tablet hydrochlorothiazide (HYDRODIURIL) 25 MG tablet 25 mg O ral aborted Take 25 mg by mouth daily [facility] latanoprost 0.05 MG/ML Ophthalmic Soluti on latanoprost (XALATAN) 0.005 % ophthalmic solution latanoprost (XALATAN) 0.005 % ophthalmic solution 1 [drp] aborted 1 drop nightly [facility] Insurance Providers Payer name Policy type / Coverage type Policy ID Covered green party ID Covered green party's relationship to crenshaw Policy [place] Plan Information [employer] [place] CCN [id number] SP [id number] SELF PAY ONLY [id number] SP [id number] WPS [facility] [id number] SP [id number] 'S ADMINISTRATION [id number] SP [id number] FOR LIFE [id number] SP [id number] MEDICARE [id number] SP [id number] COMMERCIAL GENERIC [id number] Vera 1 [id number] COMMERCIAL GENERIC [id number] 2 [id number] OTHER B [id number] Self [id number] OTHER B [id number] Self [id number] [facility] O [id number] S [id number] [employer] [place] O [id number] S [id number] MEDICARE [id number] SP [id number] FOR LIFE O [id number] S [id number] MEDICARE C [id number] S [id number] [place] ACTIVE DUTY [id number] SP [id number] WEST O [id number] S [id number] [place] PART B C [id number] S [id number] 'S ADMINISTRATION [id number] SP [id number] 'S ADMINISTRATION [id number] SP [id number] 'S ADMINISTRATION [id number] [facility] [id number] SP [id number] MEDICARE [id number] SP [id number] A [facility] [id number] S [id number] [facility] [place]AT[place] FEDERAL B [id number] S [id number] [facility]E [id number] SP [id number] 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 Stress-induced cardiomyo robert [id number] 09/17/2020 12:00:00 AM [facility] I21.4 NSTEMI (non-ST elevated myocardial infar ction) NSTEMI (non-ST elevated myocardial infarction) [id number] 08/28/2020 12:00:00 AM [facility] [id number] Essential hypertension Essential hypertension Problem 04/29/2020 12:00:00 AM EDT [facility] ([facility], ) I21.4 Non-ST elevation (NSTEMI) myocardial inf arction Non-ST elevation (NSTEMI) myocardial inf Diagnosis 09/17/2020 10:30:55 AM EST [facility] I51.81 Takotsubo syndrome Takotsubo syndrome Diagnosis 10/2019 10:30:55 AM [facility] I21.4 Non-ST elevation (NSTEMI) myocardial inf arction Non-ST elevation (NSTEMI) myocardial infarction Diagnosis 08/28/2020 05:53:06 PM [facility] NSTEMI NSTEMI Diagnosis 08/28/2020 05:36:00 PM [facility] Surgeries/Procedures Procedure Description Date Indications Data Source(s) POCT AMB EKG POCT AMB EKG Routine 09/17/2020 11:23 AM EST NSTEMI (non-ST elevated myocardial infarction) 09/17/2020 04 :23:00 PM EST NSTEMI (non-ST elevated myocardial infarction) [facility] NSTEMI (non-ST elevated myocardial infar ction) BLOOD COUNT COMPLETE AUTO&AUTO DIFRNTL WBC COUNT CBC AND DIFFER ENTIAL Routine 09/10/2020 09/10/2020 12:00:[address] [facility] LIPID PANEL LIPID PANEL Routine 09/09/2020 09/09/2020 1 2:00:00 AM EST [facility] BASIC METABOLIC PANEL CALCIUM TOTAL BASIC METABOLIC PANEL Routine 09/09/2020 09/09/2020 12:00:00 AM EST [facility] BLOOD COUNT COMPLETE AUTO&AUTO DIFRNTL WBC COUNT CBC AND DIFFER ENTIAL Routine 08/30/2020 4:28 AM EST 08/30/2020 04:28:00 AM [facility] CALCIUM IONIZED CALCIUM, IONIZED Routine 08/30/2020 4:28 AM EST 08/30/2020 04:28:00 AM [facility] BASIC METABOLIC PANEL CALCIUM TOTAL BASIC METABOLIC PANEL Routi ne 08/30/2020 4:28 AM EST 08/30/2020 04:28:00 AM [facility] L HRT ARTERY/VENTRICLE ANGIO L HRT ARTERY/VENTRICLE ANGIO 08/29/2020 11:27 AM EST NSTEMI 08/29/2020 11:27:00 AM EST - 08/29/2020 12:21:00 PM [facility] CARDIAC CATH PROCEDURE LOG CARDIAC CATH PROCEDURE LOG 08/29/2020 10:55 AM EST 08/29/2020 10:55:58 AM [facility] ECHO TTHRC R-T 2D W/WOM-MODE COMPL SPEC&COLR DOP ECHOCARDIO GRAM 2D COMPLETE Routine 08/29/2020 9:38 AM EST 08/29/2020 09:38:11 AM [facility] EKG 12-LEAD - CMAXX REPORT EKG 12-LEAD - CMAXX REPORT 08/29/2020 9:10 AM EST 08/29/2020 09:10:32 AM [facility] EKG 12-LEAD - CMAXX REPORT EKG 12-LEAD - CMAXX REPORT 08/29/2020 9:10 AM EST 08/29/2020 09:10:32 AM [facility] EKG 12-LEAD EKG 12-LEAD Routine 08/29/2020 9:10 AM EST 08/29/2020 09:10:32 AM [facility] PILOT PLANT SUPERVISOR PROCEDURE PILOT PLANT SUPERVISOR PROCEDURE Routine 08/29/2020 8:[address] 08/29/2020 08:43:41 AM [facility] PLATELET AGGREGATION IN VITRO EACH AGENT VERIFYNOW P2Y12 Routin e 08/29/2020 5:29 AM EST 08/29/2020 05:29:00 AM [facility] PROTHROMBIN TIME PROTIME INR Routine 08/29/2020 5:29 AM EST 08/29/2020 05:29:00 AM [facility] BLOOD COUNT COMPLETE AUTO&AUTO DIFRNTL WBC COUNT CBC AND DIFFER ENTIAL Routine 08/29/2020 5:29 AM EST 08/29/2020 05:29:00 AM [facility] TROPONIN QUANTITATIVE TROPONIN T Timed 08/29/2020 5:29 AM EST 08/29/2020 05:29:00 AM [facility] BASIC METABOLIC PANEL CALCIUM TOTAL BASIC METABOLIC PANEL Routi ne 08/29/2020 5:29 AM EST 08/29/2020 05:29:00 AM [facility] HEPARIN ASSAY ANTI-XA UNFRACTIONATED HEPARIN LEVEL Routine 08/29/2020 12:16 AM EST 08/29/2020 12:16:00 AM [facility] TROPONIN QUANTITATIVE TROPONIN T Timed 08/29/2020 12:16 AM EST 08/29/2020 12:16:00 AM [facility] EKG 12-LEAD - CMAXX REPORT EKG 12-LEAD - CMAXX REPORT 08/28/2020 6:21 PM EST 08/28/2020 06:21:48 PM [facility] EKG 12-LEAD - CMAXX REPORT EKG 12-LEAD - CMAXX REPORT 08/28/2020 6:21 PM EST 08/28/2020 06:21:48 PM [facility] EKG 12-LEAD EKG 12-LEAD STAT 08/28/2020 6:21 PM EST 08/28/2020 06:21:48 PM [facility] XR CHEST FRONTAL ONLY [id number] XR CHEST FRONTAL ONLY [id number] STAT 08/28/2020 6:15 PM EST 08/28/2020 06:15:00 PM [facility] HEPARIN ASSAY ANTI-XA UNFRACTIONATED HEPARIN LEVEL Routine 08/28/2020 6:12 PM EST 08/28/2020 06:12:00 PM [facility] HEPATITIS C ANTIBODY HEPATITIS C ANTIBODY Routine 08/28/2020 6:12 PM EST 08/28/2020 06:12:00 PM [facility] PROTHROMBIN TIME PROTIME INR Routine 08/28/2020 6:12 PM EST 08/28/2020 06:12:00 PM [facility] BLOOD COUNT COMPLETE AUTOMATED CBC Timed 08/28/2020 6:12 P M EST 08/28/2020 06:12:00 PM [facility] PHOSPHORUS INORGANIC PHOSPHORUS LEVEL Routine 08/28/2020 6:[address] 08/28/2020 06:12:00 PM [facility] MAGNESIUM MAGNESIUM LEVEL Routine 08/28/2020 6:12 PM EST 08/28/2020 06:12:00 PM [facility] LIPID PANEL LIPID PANEL Routine 08/28/2020 6:12 PM EST 08/28/2020 06:12:00 PM [facility] BASIC METABOLIC PANEL CALCIUM TOTAL BASIC METABOLIC PANEL Routi ne 08/28/2020 6:12 PM EST 08/28/2020 06:12:00 PM [facility] Colonoscopy W/ Poly 05/16/2020 12:00:00 AM EDT [facility] ([facility], ) Results ID Date Data Source [id number] 09/04/2020 03:02:29 PM [facility] Name Value Range Interpretation Code Description Data Kiana rce(s) Supporting Document(s) Discharge Summary [facility] FZCUZt2xQxXDFsSk53/ZDIyiSDQtm1UoKRelNNd0AUwqZBPdT7UoRLN3wK2pGZW1LOtDRzGsHjCuPZS9 lbm [file] JFYoLwAT7CFLc= ID Date Data Source [id number] 09/04/2020 02:44:55 PM [facility] Name Value Range Interpretation Code Description Data Kiana rce(s) Supporting Document(s) History and Physical [facility] NZFZWm0eTbALVyJn75/MHUveXKDuu3JcTPiwRUy1HSsaIYJtB6PyZSV0yA7fVQK2TWzMTwDpXrGpVHN0 lbm [file] ICAgICAgICAgICAgICAgICAgICAgICAgICAgICAgICAgICAgICAgICAgICAgICAgICAgICAgICAgICAg HXQsVINyCLHzHVFgBO7OPGKxZCOtAJUkVIBiPGXeRZ AgICAgICAgICAgICAgICAgICAgICAgICAgICAgICAgICAgICAgICAgICAgICAgICAgICAgICAgICAgIC MhIZUdEEVmLTKjRKWyBJHlUFLcPHQgSV8CXHVqDCBuIUZzWAQeJHAdFBTnNSYiGFOvSVWvEKKxLPQtVL AgICAgICAgICAgICAgICAgICAgICAgICAgICAgICAg VGEvMHAfXNMhYZWpCJUnOBXaNZLlQKSuLASkINLtWBKaCJ4BIXVbZNJsJRUmVKAuSYWcBGSxHBCcRSUk ICAgICAgICAgICAgICAgICAgICAgICAgICAgICAgICAgICAgICAgICAgICAgICAgICAgICAgICAgICAg SPZjENPoFUWfDJHeQUOpAH9DZYNcBETkNEWrHIQdHS AgICAgICAgICAgICAgICAgICAgICAgICAgICAgICAgICAgICAgICAgICAgICAgICAgICAgICAgICAgIC UxRKOqBNBlLKXtZJVoTSDnOPGjYNJeZVIjYI7GQDJcDVZsYNVqCAJyKAQsOIUtPCEkPSYvXCTpHRQyON AgICAgICAgICAgICAgICAgICAgICAgICAgICAgICAg WAXeFPMjGZSpKUZqDCAiSFPlPEYmRICwQAGrXTAuPODgLGDrYX0ZPPNfEDVsYOZoJKZsGVMmAHLuZYUm ICAgICAgICAgICAgICAgICAgICAgICAgICAgICAgICAgICAgICAgICAgICAgICAgICAgICAgICAgICAg QXCvJJDoPRDeZLHwYSKyCMYmHH7AOXBmCGBvQMNhGE AgICAgICAgICAgICAgICAgICAgICAgICAgICAgICAgICAgICAgICAgICAgICAgICAgICAgICAgICAgIC JlOLQiXSTdMULhAWTwSCBiYICoYSEsIREtKUWfEG7FGSVoQIYwQWYvFQUhOUOzCVLnOHBwFITvUAUcJV AgICAgICAgICAgICAgICAgICAgICAgICAgICAgICAg UUDqYYFvFHZfQDSbQSFhCQQqMXBqKWWpHEGaFSNoOGJuBZMzQSMoVG3RRHVaMBXdPGKeWNXoZRYzUYPh ICAgICAgICAgICAgICAgICAgICAgICAgICAgICAgICAgICAgICAgICAgICAgICAgICAgICAgICAgICAg LUUuDEAxOQIwFZOlBMNpWOAtYMUtBK6BVY49zSXqe0 Z6FWOuEH5usou/Mo3AAUnpcpSilUAkIE5MCjWuMF6juh8JGtPxYD4aef7MKDgBTyRgN2M0zJOuRTRaLK OTFgIoE85vFPqnMe87ZZcvSLXrJgYhTXy7Ub6RFlRbC4eaLCAoZiZ0KPJcSdX3MZSlJoZ6EEQbAfRrVM PnBFAtGHJmPNIDIBW9OJGtEyJoYPhiNN2Sk6GulXJ4 DQo+Gp3QOL1cd5HwWZonDcFqAZ8xsm6VGYgDFuLjD1ZlwiE3ZYLtOGHzDo0SPWJgZZBekRQlCnYzLPRG EyDsS0GtfV13KAGPZk7+UOvgdeBpEtrQTkTiNRTew8AyPQz0KM8YBPArGWd5uRWaVXJFADT2EBUzUvHf fVlqU4ixhYZcpAUaFRQGDYOviRPeTE4pES0iSHTeNT I1RtX7RRGVLL4TFGNkIANthHYcTFFoRLOLCK0UAOimKCI9RWKgxoEsiXKeGZdrGQ2CSEQkjsQuVcMjSX BSDQo+Jn9ONJ6ll8NqYOhlTRQhDJ1ftv5YZMkVSvCxH1A2gTInU3K7OOnkEa9VIEPfVOAfWkQpKNDUAT zpYY4VQR5duzP2NS9FwIVmIYCpEGJpqEByLPh8L45g vOBmFKekVS3IJTP+Tori+Zv2MNGPdHWCmZKDpTiWfFKYPOcVfL9IqE7PUo2TfB0IoFZ99kYpcdsSsLSkk UA4SGL6bLPCiWOENLO6XgGWyeZ3vykIyXaBfDIIZNdCrA18hyKQhHZDtGANlCZPeKy7WSVDkT6JxzzSm qTicssZtZNHmTKIDXT4TZYmsnvTpdFEzyVbrET05bJ mgSX3DWj8LZhOjIS6ygm0FmKTuZe5ODXUzMO0PBEAkFWFvKTElUTV4CBUbBfXmSZyuOHHsOOJxOIQ3NE XoDTUkQI3DMdCvMDQmDmo2UnjzUHZwJMShhk4NWEQrRAPfGFK6IsSjDAIsILGmHCydEMGoIPRyMOE5UO EpVWXyWU9OStPlNJJtHKV2HMEzANNjHKChjn7XAREy JNCrMUa0HSLcMDCqUTAqOYwfYYNoTBS0VxOmAZMyQVXoTI5BVlOpFKVzUSk6NTycQNHaPIQcrm7CTOFe GUBjBxB2PoDzTMImPEEfCPjkZFPbPQTsLUFoGUKnWPZnQF0LTjGxRKUhXMLbKVTbYGEbQUFllg7ESYRl LCHoKuP8AOSeYPBdHRGqTRoySVNxKKP1ZVH7QCYsRI NpJU0WDzSzNMEoZJaxHaUtKWGvXVCukf9IJIPjTCVnOWEhBKPzPGXhSADcYQecWMJhLGBfLsJoCXUvFM KkLZ2OHoYePOEyWaReJQWhXFLzHEUcou9RHDRyNBElDuX6PiWoAEVfBDDeJKagKIOaBFUqDGZkHXLuNF RfVW5HOuFlCTUtWiG0HUplHQFnOPWxwh9RGFYtNVFg OvwxWKLsSOSkXMZuTRgtLQQkWTNfWVE6VHHsNKDiHB2OXeTyCFBqYlRjHNEjNORrXWHopw7QCIJgAHHi QNVhFwJyGTFnURCsGZkcHQUnUWA0KWQxSXZfWOKuOD5DSfYbRGTwMkLmEoJxYGHcYOIxsz0ZPQFoRPUh MyPrUjGnTDYmGYXtCJcxBZMpROL8DBXmYOCeHNHwYP 7NCnMtPRFtCflwBxfdWPWxZLPtgg6IUQJvGUTsZlRbWiQjVAToVRAzCNjxUZTiKXI0QDUhMVTpHFNrAY 1RMmMrDTRjRfz7UOYtVOBuXUWris2CWPPcYUAvZCD1DTRhZZVvGJNlUCbpVBLaSJC4TbV2VKCePAPnCQ 3HWnKcNNteHTCSTma0EAbnT1h8OQKyCG9FD3Kny4Jm FrBnSHCONOjxEQ2cwdOoJNSnOb7YW6lTNzz4GkJbZIIaKRAoJTgtFZA4IZW7EEu2ACQ4RevePyX3GS4b LEgrZOWjAMW4XXL4UVPuDnngLcSkVBg9LwlmXFBdGCbdZnXxFR7WLx9HUyW0SZD5tIAtGi0KNjz4YeQQ OuIgMZ7ODRl= ID Date Data Source [id number] 08/30/2020 04:49:09 AM [facility] Name Value Range Interpretation Code Description Data Kiana rce(s) Supporting Document(s) Leukocytes [#/volume] in Blood by Automated count 7.8 10*3/uL 4-10 [facility] Erythrocytes [#/volume] in Blood by Automated count 3.84 10*6/uL 4.6- 6.1 L [facility] Hemoglobin [Mass/volume] in Blood 11.7 g/dL 13.5-18 L [facility] Hematocrit [Volume Fraction] of Blood by Automated count 35.1 % 4 1-53 L [facility] Erythrocyte mean corpuscular volume [Entitic volume] by Auto mated count 91.4 fL 80-96 [facility] Erythrocyte mean corpuscular hemoglobin [Entitic mass] by Automated count 30.4 pg 27-33 [facility] Erythrocyte mean corpuscular hemoglobin concentration [Mass/volume] by Automated count 33.3 g/dL 32.0-36.0 [facility] E[facility]throcyte distribution width [Ratio] by Automated count 14.0 % 11.5-14.5 [facility] Platelets [#/volume] in Blood by Automated count 237 10*3/uL 150-400 [facility] Differential cell count method - Blood [facility] Neutrophils/100 leukocytes in Blood by Automated count 65 % [facility] Lymphocytes/100 leukocytes in Blood by Automated count 18 % [facility] Monocytes/100 leukocytes in Blood by Automated count 5 % [facility] Eosinophils/100 leukocytes in Blood by Automated count 11 % [facility] Basophils/100 leukocytes in Blood by Automated count 1 % [facility] Neutrophils [#/volume] in Blood by Automated count 5.18 10*3/uL 1.8-7 .0 [facility] Lymphocytes [#/volume] in Blood by Automated count 1.36 10*3/uL 1.2-4 .0 [facility] Monocytes [#/volume] in Blood by Automated count 0.39 10*3/uL 0-0.8 [facility] Eosinophils [#/volume] in Blood by Automated count 0.82 10*3/uL 0-0.5 H [facility] Basophils [#/volume] in Blood by Automated count 0.04 10*3/uL 0-0.2 [facility] Nucleated erythrocytes/100 leukocytes [Ratio] in Blood by Automated count 0 /100{WBCs} 0-0 [facility] ID Date Data Source [id number] 08/30/2020 05:06:47 AM [facility] Name Value Range Interpretation Code Description Data Kiana rce(s) Supporting Document(s) Bicarbonate [Moles/volume] in Serum 22 mmol/L 22-29 [facility] Chloride [Moles/volume] in Serum or Plasma 105 mmol/L 98-107 [facility] Creatinine [Mass/volume] in Serum or Plasma 1.24 mg/dL 0.70-1.20 H [facility] Glucose [Mass/volume] in Serum or Plasma 100 mg/dL 70-140 [facility] Potassium [Moles/volume] in Serum or Plasma 4.1 mmol/L 3.4-5.1 [facility] Hemolyzed Sodium [Moles/volume] in Serum or Plasma 137 mmol/L 136-145 [facility] Urea nitrogen [Mass/volume] in Serum or Plasma 22 mg/dL 8-23 [facility] Anion gap 3 in Serum or Plasma 10 mmol/L 8-15 [facility] Osmolality of Serum or Plasma by calculation 287 mosm/kg 275-300 [facility] Creatinine/Urea nitrogen [Mass Ratio] in Serum or Plasma 18 [facility] Calcium [Mass/volume] in Serum or Plasma 8.5 mg/dL 8.8-10.2 L [facility] Glomerular filtration rate/1.73 sq M pre dicted among non-blacks [Volume Rate/Area] in Serum or Plasma by Creatinine-based formula (MDRD) 61 mL/min/1.73m2 >60 [facility] Glomerular filtration rate/1.73 sq M pre dicted among blacks [Volume Rate/Area] in Serum or Plasma by Creatinine-based formula (MDRD) 70 mL/min/1.73m2 >60 [facility] ID Date Data Source [id number] 08/30/2020 04:57:00 AM [facility] Name Value Range Interpretation Code Description Data Kiana rce(s) Supporting Document(s) Calcium.ionized [Moles/volume] in Arterial blood 1.19 mmol/L 1.13-1.3 2 [facility] ID Date Data Source [id number] 08/29/2020 02:32:37 PM [facility] Name Value Range Interpretation Code Description Data Kiana rce(s) Supporting Document(s) EKG [facility] BFPQLz8tSuCAZbMfw1LqYbUjUEVgCM8ejvk0H3Z8qEUrJ4XpfXFfy2avD6KpX6JwKEDwCMYHCR0YnKZx jb2 [file] hhkXA8ct9ZpRMGTq7wJEXj7ZaK0BuIF+FLACO/CY0hP7C+w/xnTsRhTsPUZKWrTba1o0Vyu0w1B3EKhTnCr 1WU8Fg7DNzsGhyYOtsI7cS4Fx7qSultRC3jT0GyZsBZ+FGBbKYZBTNo6egu0zS15ldyJq57AL2XJMQoI IJG+A4/ELXCVzp5S5jgW7hndZ+VTwzvW5ssmzGREnz cRE1quezZzhKZ+wLPO/jR3uBVwpx4cvVD/p1vp1x+U6ppDGz+N2fw+/3MB/rqH/9n4wyvvqo5q0Yj8Pp 1lnJ94khukalwExGKfMepv5gv+M9bXoK2xk6rWbat/m5m5+7+foqv9v4gZooq/m5m5+9rYF1an55os1D wkj8gvlhitKgcYe2mNA8oj79j33mzop7o4lfewClxZ 12eDI4xv90o42ekkg3p0euxurfpG70kKN1gx56du3Sguk1r8bnokXivu9ozCkxN5K0T/8yn1QMUQw/// c6bbzoQVd2BTN2flqospl1TGiqJaxfactjUc4FOS8rnng6RIiD/aAmzKd3IWvH9xS14A11La9JoyK/oV /Hy1CGGMzUY9G1NrOEAcHHSLhEzM5MgbE6bF6fJ12E jEmxOFf9U2EHXj4mZqFFxBBbbhA3arpz8h8baRT7wTL3grg9wSp7onW5pdlhodJf8Axk8n1aGM0cz7/c gd7Av6MLhfRbjj4U15Ef5UsXqAS3dt/0zQyfeI75ht8x0N/h/Os220u11/F+e77f+Nhw0iPDA6285MQj XYa+Qd+k30I55P84lm9sS/K+Yg2PxUB7S+ca3KVwVA JGV8Vc1xK+Xu3mI0i1Vf8P3edQDKRz3Oc4YlwS73hxr7Lw1Pi7Nl2OO9Ga1H5cM1o2wt4bPDudiB/Hzh 08pLfa9I7m9k1432xVZbyZ6ssr/fmh7KzrN8yVT/SLnhKk7G8oK19kqGcv0S/cd55+fc+lLUM/xkmjdk GcgCnvlBdaOnaCsHM77LPzlnePOtyRiTF66yeGo7m7 2ug9XElLCV+F79BEFn/a7PoaS9cgl5jqdhgezI/L8q2va/uff9k0yP0FncUtyezTqGC2jdKE7b3J18v8 M6K+LU9acKFOXf/3qvKx/6Fgfrx991WbcNxYjsaNd8zlejmHEpX/5DJvYlj5jw5tB6vQhgqcVNKF8Ym9 E/j01o8gM2mNcC/kua4ym3v42XMRgrpbpHb06OltVG kd+g69QW/Qo/8u9N+F/ybJiqd340d2alV+VJgF78pd6bp38wKJ0eayKLbA8nbuVA5CraYzbA8N60/xOU 1XIXGP4wGw1S/oJ/QT+eR2ka8r7/6iwN9eRr2Tad9X8OiJ9ux4XzjCNfoxxE+ucmFvq5oomhsG+nHsCf 9K4V8p/ViGw8HevaF+lcK/ZmcJtog2Vf+oa7U2895U v6qyQW/EK85vyC9MidGQ+jemq3txdo8S5V5md8K8V+rbUN+G+jbUt6G+gRGtcDxcUYlOn8W+EqErlL9E ruHzeboRwgbdfRaK1J361yPGi+8ha17oX+jPeKX9+Bvaj7+hvUNvj3+r3W9F9gE06Vd5B/tfzk9CWG2V IwM7a5Sg1zTfzfh9cGiiPsiKBUP1/WdwjQXu0o7xKx Md/tUuN+mc6G32Cr2Yk6a+X+aG7T5fqwr844QmR+glos8ntSGaIx4CV9YpeVzcDNqJatBxis7Yq4svWg 8qbZ7+1S5D7/z4j1f87qbts1F+NcGh4O8x/VKqInlTYW002SXrIP8Dl2P98Qmsn6FzXKF//Pi4xdHMDG qHfkA/oJ/Qn/e2tsDa7yRpa2XU5Rh3Iy6866P/Tf9q z7Tx5WzjYPgZ3cR91Ih6G/kI75G4C+d2Fb79ox15/asqC/MXiJ3czK/Ofnu4Xi8fuQ3X7n+F+Xdh/l3w Qaw2vYV/W4JzQBO0MloPTV2mIX+pVFw8ajDd1oSSF/QKvULfoG/Qn/fbrvN+22XQG/QOvUM/oB+4/vGf 08F855f+VZWf+r1XcE8i+KsG/kvNd0suxtp3hsd+qo G/auCvmnTc9/tsWTx6g38wX2QP0Yy8W/oFPepb/wSJk2BWd4rnbqf8ein/qsG/avCvmqK+8oE96H86g0 5cT0JK6Qw4Y/oF/mZaFdo8MVf/dqZ14Nyd/pv4AbdiG+1v0B95Vt4IsiNb5Gu0Ti3lncu2sye+qoG/av KkGlryIj7ahl5zXl68/mm636RhfC80T/5Vg3/V+vke vR5J79L37C55x33pU4SO3S072JD/mqlfz/zYkr/ExmYVx5f+u8c9yxuzv1FcFjvT0En7y0TQ0eyE4gS4 6A16g/6Or61tUhlPRqoAu/ma9zGxvs90/+Hrmp/5qPkF/Zl/b9O6mqVhD/vel2Tb2r2wqpVwO/VR3yob 9OyrD2wb0nbiek3u4B+O/lywo4429Un3yzE/lfcK/y dVFOmngrtKLqN643wdp4NpsplTt0ncTVd/Qphc9Z4l2jdfszg/tbJeyV+lTYq/rfkPd3BiCbxvA/K+d3 33MwR/VdcP/mrmcwZ/nfmrp62ul6Oz7/jna4REc+kz6bWwxlBLTtFQ0UjEwc/bSxibakvISmJtD9qjPD ueaM/qjpg8saa+qoG/bjFf5bn+AfsVx02m1VUoNN+y dgZFhnB2dSS/4V+18q+yjPEK/HIRz5BOPeBnQu73LZxhPpk830R/hX/V4F81+FcN/pRDt6GrP4M5T/06 37/9Ot+//VLoFfoGfYO+Q9+hP/Cx07cyjta3t93IB5Balxp//lW/jr/SqxEkkfjXYk4Ca2/E4K06VNjs L/9c5Nd01tMw09P08Y//3MFfdXHoHfoB/UGo5WVB/c J9D7/R07/uVvmMjcUs1qKQO1Bz1JfhM/Sor6K+odyb7rqvlm24c5X3Zl2/xucO/6rDv+zevtm7nx2+qo O/8iOkNuyh2tAwiyw10Eyvpf0HO66C5P953toazskno0C1fEl/bUGP/gv+qoO/6l2gF+jRf/ySs2x9Rp vLdsrne7+eakIBmjuB2Zc8S/4+6rtSf/iNOD1S/Ekc Zoso0Xt45+iLv+qXlbRA13s6cD6P/jgyu868HSVSt0ELp9ajq52fmrx6Ok7u1Yy3eB/4qw7+qtuEfkF/ +LruqK+unydv5KZ9Fx2XI+6151V8I2Lh1Mr/lb+3C+XzftO/2uXHv+1++Jzuh8/tBdQr6T/ojz/Zx/En +7igF+wKbhLeyCa7Im/Ww58RZlzjJXtsI7fCUncwxh hBHlZzQMhJT2NL+PjieS9ScgfF56yvhAD4ppzz57/jNobzY42UQ/Cv+jzf+s2xz64z931+sQFsOn5/vv t5MARrgMs8YWy8FVp8PZg4FDf5IO+h1ywhSO8ePfcLqujL87GncUL0FfgjLlbOabnp0N7a76G7O+q7Jv IfO1tyV+w6/IZdF/PEzWSj6Xg9o1+26/Nfjl1RtrBf TWeH8bU40Fd4N/oJ/YSe+wDP/Gvwrwz+fCxuD5je/CvH6Ghy1F38Zw2K7wK09KYo8U2m0E3f6X2tqY4w 2jhS72GP7KQS+sDLwzKCxVB9FN6f0U5U/JWBvzLwVwb+vvKhSqobM31d1C/1vG/Di4rxr6Nr/XWmZ3+d 6fn+pwTs3kyvnC1U5DsGRp3+/vSUfh4SPEfzF2/Rlv 0HfzD5wnj3Velhka2MZKq1Dklvq8cvV+D6A/eN+j6spxm8VeN3o44+/xmgwu1tL+tJ428283j4C8h72H b+Va/yrQ0w78ej/WKDrvUzXlk/13S9380nX/7o8Qp4rk1Wy5IpoHr4cLgrLSeNAuXr8DtsU/QdeoPeoH foHfoBPeprqK+nfre0ZqvhX/648K1fB+gFeoVeoW/Q o75+vn/Nz/e++VkvMz/rZebn+8go0fEtJ4jr/6Z/0kxwW9xN/2ozbF4zQI9fYHqok1+d7D30Cc/X084H 2mZ6L21BO8qMOveA/nFuXi7kshf15+OfRLdlm4Lws+hQwp32yaQQInZu9/Yhwfi8GjuYcAdF2JEwhmQv CBeFf34wJIPZWR2ryMh2EYGoFi4V+AaTolDlsmW70n TEU+7n+SfGq/Svriqf+d6xT0bOo0unMA6g/ox52EdDmsZk2Vp+bh4yR1nEu12pi/HxyQY1D1Uxwxu02K 8Na12T64V00UL/lF5tUF98rS/jZpnJuRPk3Op3519e+688/asqC/BLiZXu5K/sxp4IX8+Ov+JL8Co3Gz rAsutdtB5tTxn1iD/4/Xm/Dv/K4V85/CuHf+Xgrxz8 jMW55PQ+4HvjlFeKQlHRKjkmIRi4i53cj+mJ2AY3WX9dO//K4V85/CuHf+TRU0OkPac4C4/97WFbPeOV 0ocqCHx8Lw+8H6AgPOaJbbE/oJ/QT+fL9KtxzE3d6C5NYnTR0UB84Oj9y18YrzZW+jbUt6G+LsZutY5R fbE+9E8UD42+VZXX4/94+Vf3+GsxH7I5vS+8n/VQ7w L92R/r/woY5n5no4Ui/nOqN6y9P9l94aPW4833lhH2zl0tmVA9xKujt/IW8ogzw4DphB6yA9o4+Ino/8 ujM1lpzy4h4C4nPxkIxFXb8Zr6Bl2GtgL/oZ/QL+aXxqa1lxlY+LrVdj9ep9C6mfvQyfm78gd/yh31dd ZKAU2GqU89cmWXFC0//qT7mY/ze0jnmwTtM4r+9YH3 O/B+s6Zl5Ab3IYfFW0UB77A62KJlKRkKM+ZoiJg42Z2C6tCFng7zwfPxdVE3veidQ8iiwpJ2YpnpwO+w WyuM83RZdYHnE18AZvS5J/8g9GvbH4V8ES/uZy2Eghv9sw59/8d7G7yMaYUb0Xb4Hn8bp1C5cDH0Vwur Fsar9K+lsGzo1Cin/Ru+mbjIRwdaT3kj7F71+dGP63 zvj+yEPdAX6R/045sWzkUhdmA6vYSiB/T3P4RbuW1QZBsppKiuY/QD+onrTzvPtvCc6+xMd4om5UK9jW 35KxOTvcpmnj6Sfk69iAW+laQ+6jyR6Fm6Cl4QpgQ/oZ/QL+jP9+KWm77i0KiiRrEl85/5i2mw4Jy5Ek lYLouiQDbG9uX82B97Ts6GxaK/oV/HVv0feRLhbCRJ M1MN3Xhn+KvRUN+G+qZ/lfZseL/tC364d/ihVG7hwfLQ03IK07+Wfuw4TbFouc12welBL60fwi1Jprzr iPNQI/aidjt5IG/fv/m34V/VNXt+/6Y+sd1b6uq8pr5Cc/bz/Tu6QW/QO/QOPerbB/QT+dm8JmXH/yrt nKvxKBqojq4G2jwcwy1jyxEWbxLa+AIYpus12KoQf6 7/PMygN/z+jM/Lmk5cOGQAU4VR9Dm7A9yYg57bd+YxBqse1Qt0Zv7B00D/6ylJMT8/8+/l5j741CR5/N 5x/YHrD+dy9LR1Ib0Ec2kOwXkgU2EliaqJ265obO+NgflooP+Fj25jpO7664H5Iy+q2j/2z8T8EPPY1P i/A+15oD3n/gqoPqhae0NJfwu/8X4yBpOioFEwnNbZ bxZ+4Lj9q+SXmmk9Yl2oXy0K7u/v/GOs5d8Z1A46vvgrzEr9k4/ZtLyv3/qZ1/ECJgf5o0Oy6XsY0065 CvC8a9m3Hu2Y/kZctvyex3jOQjus4ILO+BoRUgaBo5D10Nb/qsao8K/FixZx6hfD/+dg4zbk3H6vB2n/ KttG+xl6YN2Pi/929L7Y4eQRw70oakxoyV74GS/Tnu d1QX++9+t4yybrqdXl4M56Gi6uhqoTIotWIlmUAipLQjrMIbnXQauERlyFV+c1cd+L1ei4mqA8uqqS3X lwqQ6keec0auq+aoK/jyNlVzzeQu7eyo+a4K8m+KsJ/oeFj5al5Uqsg2L+ftkn4oajv2H+yrtarBp9af y4vMw2BDGe7Z70Si8Il3W87Z81uW1HX3/+PxQ5m1BR 9Md/btkcsHlxiXifyF1jD/7quInhzME9Gw/8nL67ad0fE/vbJ/a3T+ein3etLUvKB3Ux2H/oF/SHv5rg r2a/oBfoBXqFXqE/3wuzn/FqJn+1c8Ur0By2X+/QD+uH9ZI4Mc2OUhX862168GayTiA8OkkmE5w9qUj0 /saEfzWtQ4/2bGjPhvZsaM/btke8v6nM03w/tcNvTD v0zwTVq3g//Nt0G7jN/chcW9iVJz653QU/NcFfTfBXE/qIOY08mL1JfX6UO/tjpw/oB/QT+le4ip5yE2 vj7H+m42NyaKdhJXmW/uy/goKrF7bjV+2f8Tf3DN/2fvUXdUO1hkhD1CF5Cl8J/vCTcx5+cs4L+rPePb H/xh2zG9HFi1zhadq1gqa+aoK/mth/NbH/amL/1ZyY ndnyb7f6cIT+xfrgnGjPE+91nY4zdMpQ8nfFggv/C/UqzE2KnAgce4Olrkew7Vioaii5YgtfGf3S+u/C /Flight Purser/64z/y74Vwv+0wqTasNdfIspe1+14F+jl8YnlWftNYoT6iKp5F/oJ/Tn/H8gPf0zGw9pPf8dPy5b Ym2wIr83Qhv+1YJ/teBfLfhXC/7Vgn+14F8t+FcL/t XJp2WA5JElVj97/yZSGi6jt0bp/Srer+Q1et2ovfcP+RqR08NW32IZ20XES/ORlQQy5Pe1A/oBPeqL/V cL+68W9l+cyix47Qayxv79erwzeedhcrtyiywvaenjjduoynexKmmIgijBF/EZFuIzLMRnWDg/uNrE9R [file] xwdueheenjwtdbpmylvezmpmpqoydhqhIfyHtkEpakiw2BWlsQA3uKlxHwVcMaDNUPYuX3D/5ghgUa8J SIksO7kPpEPDeDTZShCuukMmcFkLiE2vJ6sCiMMnfW xu4noONXMvFRwZFEWHOSV7NnF3szC/mfrwH3bKuEF9rwVSAugZzSK2qgHEBkxDvSC7oeUXLxoZwZC+0c wkKksRX13t1OADoOKRAfNanonfPqz9jKQxpWaEFMCBRz/KyVMp5EaMoiZzR17+4IPIIDKJTCKLCHykys jhOUNLWpZsx1O+lorin/A+cbKx/BWwVzZKbAcERJot27 WcYud8qCz9ABPMHEtUYcpILPfERwc1Xzx8RgYznxsP+gjM2x0UGFMqfCCT+W2YdBiGM+oiEujlY+lv2g xjouHBrYGNOIyZ8rmjnPFvpxIGTpS/EhmY/lPTM488m+mxHTJe4FgBXLb+FGIOcQRvV7NhY4jP1ISysD DjqLOFS2YURH9qAa28Qv97XtwcfdykT+rH7FgQ8Bwm 6W+pnybxqRxr/R6LiSe9ZFzIdixFvjqzc81mhJu261AShAu/Sj363z4I1YotQ0dD+/f/pz36ya6139/J 0c0l9d6W5C5SFTV8l/5Re//rg4Sl07+80/vH3+5LohlxQbC4xv+emXv/cO3eX42jQzvE2n64xfQ/vm2+ 9/Cdz30635bBchQiHvU3SHeO1/fPfNb9+++82Hj59/ xVp03rxvcysE52+9dodNb9+/e//hy4+//ll06xbw6/tvv/j06Nvz6y2/+/j+y3fff/4XV2fgu8F38S29 zunbOcMBnZAJ67q81p23y9/78ddfv/3Llx9//rxaY480/wYUe8555hP02664/bvD610/e/v+9Tpkg4yv 3Vefv3/74tuvf/PVu//r3Ye/eyp7sl8f+9W3//L2/b rytjn5L+/e/vn93/qlbPt9+FVH073+8vO3D9/77ozmFro427e2G/g63pVIb547+5fPv3/30yzfokj7/d eff/Tg1liP6/zTu/dffvv+3eBvdhu20/Hd+2+/elno/hpYq8j4+S//gy7lpBd6g8+4jmtmQ783Wm0jM/ 6Nn93+lK6qvvw2x3/86m/72E9Z06/+0eldktp3bG4+ dcUw2+cZ3n94f3mvj9iH+LyJF2q620/62sgvnx0sg179/3qT//n4B33xKSl0K/vrd5+///j2/e3oF939 +/Fh3ye8feNzxs6h8qid/9q4Yty99i//+KreXg/02s2jksi+9+Q4v66pwpmxmi/0xZ//9G9/+Msff/z9 23//329f//glaz[employer] metal furniture//4/fvzL//ktr258+/DDv//1D2+/+e P5H0fo9H9i//9aa034/qMJZH6v1xIRy/7s1ZF/8/V/kWanD376fr/+/J733cAbaDW16F3+O7wlM52pgO +//q2EcggqM46/pL2sUD6SIvrU+uErdndfo+G5urz9+peAp/S4lza61qpdfdgAjM2fKAt5pm/+5S9hsc /eXib+9vsvf/l6cx9++6xSP96W1izK4x5Y/+L+Qxj4 2J1/Hif3T9/1yEvDqlkeCincw3YWMpz5O/7pr//49pcf/vrp1V/Hd7nDZva/9Ee+qNAeTKb/9Oob/M37 tz/86a8//uX//eE//sblt1E/vXw++/Mu+0+vvrHXaPL2+//n9ex/+INifhn7AQT6b7bpAZ2sat/+/J8/ /q4tk12XpV//+ctv/+CwSe0UlzeY5eKTM9/vWoA/0/ 7JtY1g++lrebDf/Jm3x9D50U/9+J//tQM9b+80zbfVm1/97B2vzRxJmmaoy/fvLSa0FZs5i4765lsQX+ gv/uOH3/37T/5223noH/362278eyj1/+O//9e/fQz4/s9//dDds6q670/0JKf8gs//9oJPLkR7xITX5u off/zd//rZM981yt/+2VeQbrTpS78yIZ/yt//511eb +/4uw6eos2z800y+5Tf/9cbhUUWf+/ihn26T8OvKZRXryaT/+Sf3d6G+jT2b/PB///gmb3/+vab7BOxA ubKj5o5by+Zr4ycyvr0/e5P+Se7b0Tc7+/84CElNnykP9/mff/WBq1330/hbvkYu5R4hdj/+/gF8W2y2 TeBpYGH3yxHomSgtepKcVabUATnnTXWiHxp0GY9NcD DlYJEbC3K7WZGkbw0uMSWdIYAhpZMeWhRmEGXZEX9EeYWmUH0JNUz5ETCpLNRfAdSpREQufeI0MKQpJO RcCLHyE1ZczsIduTCeJSIgOw7+QI6wq5JjPhEgVLHrAcf1LC4HyQRhTZ2KnEDzeJ7jslGrX563zsIxIU GhLotdv1NqPAzgEMHUID9RCPO3YSC8LWFiYd7+ZW5k r6IaZjOzFKSiMyf9IL8OoDLwv6XvXL8CM4PaUJFiDOFXDNZ7y3QbYPSntjcapipqS8XrXJA1jY1dFON7 XSPlBCbmIYAwWUNcHtS2QfSdUMpqLUYfKACvCXWvCWMnHTk5uAWdDF0HN2ZmXUGbRREAOSVpmoIkKw0s GVBFQ3iYEwRMS39fOZPYMJQOSXRfYYY5RQWiRS0XqK ImPTO7PSuORCUMJCrFRAxkUbLwt2N7NVCxS7DjULXwoeEqCNREQXfbHkzoZU0ofZpkwsjcC4HwgVVxAK UDURKcHJNhHHJgSKBzN3Vhr3B6X3CmMJpPHQMKXJuJNJjxYvV6g45ohfSASFDrZVLmBI9+VQ6bd6AxIr 4AICQtJD3demk1LP2UvLHkIO7GRDggojNhM1lwenIy NvEpQLQMBU2uE4PzlT59GVH+AiLnHQ6tjrf3qcRuQzWxKQWxYMTlXOQuQMhhLWMvRQTmVASlENI1LKV7 HODoYuTcLHYmXcd2BofbTOIvDMBdxjFRWYFjYNT1MeYmVUAnNCWdGEUmJTokHKCeWSA7XiyiRKKuJBVg QX2eWrBwEIIjWCCdDIWqUwW2PrKjZpFBABYzNXNdEX ByMgThBCSiJQYsOKxfDDFdGFMyETr3QRVqXIVjOU0oFkYdRRUkCKAoUFSfKSZfJWUbwjGHJNKtPNAiHP C4NLJqJGItEIWoBKreZYNmAYEnXWO0AGMrWDJmUH7oLeKjBDFlPZR4AuHjNDIpXCQivvJVIVDvUVHiKS M2YCEdPOMgWGFnFEluEDOyIYDyPcP9XBOlBKNlUP0e PeSeXOUuBEY5OFDnUIOzAAKwwfIOEBCrWVByZIw6XuDyBOAcCGJeXMjoFOPwTZWvQHlxROMcBEVpDS9t OgCtZYHqHVFfQCHqQXYgXDHjtjCDYFViTNRuDJQ2QnCmBNLzKUSjZDxiUXWxRNXgXGC2EBJrVLViCV7e CjAwMDAwNjcxMDEgMDAwMDAgbiAKMDAwMDAwMTYwOS FwLCQwDBExPLveRPOgZNPcDfK6TNWoSJLnMO7hDyBmUQBiFZS7ZZVdJJEaOQIqhhEUQYPhHALdBIWtMB Y2ENHuDIGsPFk2dcTvpVYyKlo5Dx5UmRvoGFB2Mt6HyeXdNHSlGRGHOm1Mq454PYVfHICAClv+PgpzdG BarZaiBBJCOkw8WNSBLDEMS2I= ID Date Data Source [id number] 08/29/2020 02:29:46 PM [facility] Name Value Range Interpretation Code Description Data Kiana e(s) Supporting Document(s) [facility] JIBXEu4hYiZQAwHsh3VlRuBkZJNbSK4osbl6V3V2iXBvL8GteTGnh1upY6EmE9XuBFHkSJOKPX1ScWXf jb2 [file] c3bkJQ13Yt+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 TODBGd7cEyYQRtRf22/LWEpwNMCmj0NtVGntSZr4FQhsGFKqY8GqKUF1mY6iIOT7LLyUSvJeQhNkUIYz lbm [file] ICAgICAgICAgICAgICAgICAgICAgICAgICAgICAgICAgICAgICAgICAgICAgICAgICAgICAgICAgICAg ICAgICAgICAgICAgICAgICAgDQogICAgICAgICAgIC AgICAgICAgICAgICAgICAgICAgICAgICAgICAgICAgICAgICAgICAgICAgICAgICAgICAgICAgICAgIC AgICAgICAgICAgICAgICAgICAgICAgICAgICAgDQogICAgICAgICAgICAgICAgICAgICAgICAgICAgIC AgICAgICAgICAgICAgICAgICAgICAgICAgICAgICAg ICAgICAgICAgICAgICAgICAgICAgICAgICAgICAgICAgICAgICAgDQogICAgICAgICAgICAgICAgICAg ICAgICAgICAgICAgICAgICAgICAgICAgICAgICAgICAgICAgICAgICAgICAgICAgICAgICAgICAgICAg ICAgICAgICAgICAgICAgICAgICAgDQogICAgICAgIC AgICAgICAgICAgICAgICAgICAgICAgICAgICAgICAgICAgICAgICAgICAgICAgICAgICAgICAgICAgIC AgICAgICAgICAgICAgICAgICAgICAgICAgICAgICAgDQogICAgICAgICAgICAgICAgICAgICAgICAgIC AgICAgICAgICAgICAgICAgICAgICAgICAgICAgICAg ICAgICAgICAgICAgICAgICAgICAgICAgICAgICAgICAgICAgICAgICAgDQogICAgICAgICAgICAgICAg ICAgICAgICAgICAgICAgICAgICAgICAgICAgICAgICAgICAgICAgICAgICAgICAgICAgICAgICAgICAg ICAgICAgICAgICAgICAgICAgICAgICAgDQogICAgIC AgICAgICAgICAgICAgICAgICAgICAgICAgICAgICAgICAgICAgICAgICAgICAgICAgICAgICAgICAgIC AgICAgICAgICAgICAgICAgICAgICAgICAgICAgICAgICAgDQogICAgICAgICAgICAgICAgICAgICAgIC AgICAgICAgICAgICAgICAgICAgICAgICAgICAgICAg ICAgICAgICAgICAgICAgICAgICAgICAgICAgICAgICAgICAgICAgICAgICAgDQogICAgICAgICAgICAg ICAgICAgICAgICAgICAgICAgICAgICAgICAgICAgICAgICAgICAgICAgICAgICAgICAgICAgICAgICAg JLUwGVHuTSCnIZWbLVCwAWPyOXDxZYIsAHAoXWj0S2 hoCKLoFJXhNA5cDRf8He2+KDoWRiWoMSK5lmCgaZ6TGI6hl7GiOGqdQJMti3JcTDt1CD6UGQYzIPjxAY 6PGKvcah6EVGDvATOwiEBUb5nbPyXuODL0XQEwEynjHY9JTTCzK9rwdbXdRPTcHHDOLKnyAAZYPLlcKA LMOAQlVEHtXuMzBoNrLBSrAL6AZTYiN046ygUtVT6C Lk7NBtHvXF3byj0WJnUcHSOsQhaYLjx1FZqxIV9RuJVgqJGzIKWqXHDMEnRqZ3hkl6YhPgBnQJXOESeq NH0Xz5MtfBMdAOs+Fb1EXY1yp1PlKWocZTEwMW8viw9SBBqYKvIiI7HvjKoyYIggGQMetGMDpBJpjYWt pLlwNIJNeYWdRPBLPcGTWEB5TEMuZkUcAxOrOcBiFX i4BGBkVH8sATdwAR1UJKX2HPerMNGcFSCzF4hFJkOyKXXlALXqqEbiMX9RDrDzB6FtqxWsxJVlLGBvAI INCj4+TIzdioCpTcmDDbVtDWBpv0UkIZb6IL3WRMRuNLmnPR6PWVWqjC2pSLryCC5XAqHyXOQmTTNAEv EcO74nbRGxVLk0V1FpJkHkXREcKqieFPHzUCkaCcYe ZXMgWyBdDQogID4+ID4+HBofSK9CETlmuxBgBUOkIt7FBRNvPBCyOE0pDOJjGGTiX5D1vTehMOYKTgVl Y8jyzplgNQ0lLIMqQ330wWfajyIoTCPzQLMaEz2EHEPnLVL2DEVkxOXvIkvcMVLLDUqcYR9LhNEeJYT7 hS8aQBkhNVMvMMYnR4qTKsUlxKbcFO75pUaahcNggG BdDQo+Iy5ZRD6qd6SlFHp5csObCRyiKWSiVTyoITPcZROcVAIhIGM1CVP5UMPZBvNhZEXvNCHcOUnqUY JgUHBcxm3GDZFjFRHcIiG5FFLfHZVkAXMkTGtsSYZtCDVbEVH0HOIcJEOnKP5GRjVsAFQaVKXfBJdkOT EdPBYoft1KXZBuTIJlZmBwQAVlSBIxAZMfZWonBPLe KWFoNZKrLLRaPJAuXX1PEkUqCMCgISN9FwYjVHAwNFFkrg9PMDWaATFtLcU9AlKjMOQeQHHrHRdwCIHi HWFmHjMfPBCgZCVxUD7NZbOtVJZjCYY4QfSeOGWtWZTcyk1RKAAiRLYpRZPlSTTcGPIeLBSgTRbfFYYg YFB7YuL5JFIfXTYuOX6CBxPrKLGyVAI7XdZjNPRsAH Dulr6RYRGqUHUeKZz5LZHfSPPtSYTjQLwhLHEtDXT7YlWzREAvWNVzKP8NTlVgPNXeCJG0YLagGCWcVX Qsxu3CBPOzNCCmFlZ7BYAyLOTfLHYfOFqtSDCjXLK2VXAeBQSyGZHqVU1GIiCuZGPnNIleYBRyIDXsYL Tout0TKOEpCEPnHVOvYBQaCCUzYTHkNNbdONIiPVJ7 UdoiQSFwCMEfCO0JIrDtZMOtXMx7YOpcKLLiMFRfso4SGDMdYPMmLIy7HGAkSQTbXKYzMXnsPEDqUUYo SFP8HXRtEHUyXJ3DXcNhENUqCjR2VrNdRCArGNHtmm2VJRJtLBSdFKI2ElEdPFBjBUAdIZskBSReRGBp NXTaZRFkXYDlLF8CMcWcVXQdBeBqOdxpQVAiQZLosw 2PVTEdSYAbDmX7JRGwOCJvFWWvUItmOCFwLMQtNCP7BTPyRXApCE1RLiDjJQVeSrBcNSdyGGSaGEZkav 1NROGdXVZqXWJ8QzYaMBEaNJWxGWl8ubFscQZaFYo1MS6UK7OagkOjYvGXLg0Vf366SXJwKSBvSe2PR5 wfPv3wFHGvMATBJy9FIZn2TLL1EYI8YMunU9X8UOMb KKI8OwE5Voz2EfNwTGS4VdI+SKp6Keb9CHNmDMCaIQM8RgI7HSZnXHr0BMvhRNWqKwziVc0iOHVMYd7+ CBuxsOKexGnoFSXKFfM8LFJ5URrgHVLWXy9B ID Date Data Source [id number] 08/29/2020 05:58:01 AM [facility] Name Value Range Interpretation Code Description Data Kiana rce(s) Supporting Document(s) Leukocytes [#/volume] in Blood by Automated count 11.1 10*3/uL 4-10 H [facility] Erythrocytes [#/volume] in Blood by Automated count 3.53 10*6/uL 4.6- 6.1 L [facility] Hemoglobin [Mass/volume] in Blood 10.7 g/dL 13.5-18 L [facility] Hematocrit [Volume Fraction] of Blood by Automated count 32.2 % 4 1-53 L [facility] Erythrocyte mean corpuscular volume [Entitic volume] by Auto mated count 91.4 fL 80-96 [facility] Erythrocyte mean corpuscular hemoglobin [Entitic mass] by Automated count 30.3 pg 27-33 [facility] Erythrocyte mean corpuscular hemoglobin concentration [Mass/volume] by Automated count 33.1 g/dL 32.0-36.0 [facility] E[facility]throcyte distribution width [Ratio] by Automated count 14.2 % 11.5-14.5 [facility] Platelets [#/volume] in Blood by Automated count 239 10*3/uL 150-400 [facility] Differential cell count method - Blood [facility] Neutrophils/100 leukocytes in Blood by Automated count 82 % [facility] Lymphocytes/100 leukocytes in Blood by Automated count 12 % [facility] Monocytes/100 leukocytes in Blood by Automated count 6 % [facility] Eosinophils/100 leukocytes in Blood by Automated count 0 % [facility] Basophils/100 leukocytes in Blood by Automated count 0 % [facility] Neutrophils [#/volume] in Blood by Automated count 9.04 10*3/uL 1.8-7 .0 H [facility] Lymphocytes [#/volume] in Blood by Automated count 1.30 10*3/uL 1.2-4 .0 [facility] Monocytes [#/volume] in Blood by Automated count 0.70 10*3/uL 0-0.8 [facility] Eosinophils [#/volume] in Blood by Automated count 0.02 10*3/uL 0-0.5 [facility] Basophils [#/volume] in Blood by Automated count 0.01 10*3/uL 0-0.2 [facility] Nucleated erythrocytes/100 leukocytes [Ratio] in Blood by Automated count 0 /100{WBCs} 0-0 [facility] ID Date Data Source [id number] 08/29/2020 06:01:20 AM [facility] Value Range Interpretation Code Description Data Kiana rce(s) Supporting Document(s) Platelet aggregation ADP induced [Units/volume] in Platelet rich plasma 282 PRU <208 H [facility] (NOTE)<208 PRU Therapeutic range fo r P2Y12 fqzozjzobj998-285 PRU Low response to P2Y12 inhibitors ID Date Data Source [id number] 08/29/2020 06:06:05 AM [facility] Value Range Interpretation Code Description Data Kiana rce(s) Supporting Document(s) Prothrombin time (PT) 14.3 s 12.5-14.9 [facility] INR in Platelet poor plasma by Coagulation assay 1.10 [facility] Routine intensity oral anticoagulation I NR is typically 2.0-3.0. Target INR must be clinically individualized. ID Date Data Source [id number] 08/29/2020 06:38:51 AM [facility] Value Range Interpretation Code Description Data Kiana rce(s) Supporting Document(s) Troponin T.cardiac [Mass/volume] in Serum or Plasma 0.22 ng/mL <0.01 [facility] No Significant Change since last result called ID Date Data Source [id number] 08/29/2020 06:38:51 AM [facility] Value Range Interpretation Code Description Data Kiana rce(s) Supporting Document(s) Bicarbonate [Moles/volume] in Serum 22 mmol/L 22-29 [facility] Chloride [Moles/volume] in Serum or Plasma 105 mmol/L 98-107 [facility] Creatinine [Mass/volume] in Serum or Plasma 1.14 mg/dL 0.70-1.20 [facility] Glucose [Mass/volume] in Serum or Plasma 111 mg/dL 70-140 [facility] Potassium [Moles/volume] in Serum or Plasma 4.3 mmol/L 3.4-5.1 [facility] Sodium [Moles/volume] in Serum or Plasma 137 mmol/L 136-145 [facility] Urea nitrogen [Mass/volume] in Serum or Plasma 22 mg/dL 8-23 [facility] Anion gap 3 in Serum or Plasma 10 mmol/L 8-15 [facility] Osmolality of Serum or Plasma by calculation 288 mosm/kg 275-300 [facility] Creatinine/Urea nitrogen [Mass Ratio] in Serum or Plasma 19 [facility] Calcium [Mass/volume] in Serum or Plasma 8.4 mg/dL 8.8-10.2 L [facility] Glomerular filtration rate/1.73 sq M pre dicted among non-blacks [Volume Rate/Area] in Serum or Plasma by Creatinine-based formula (MDRD) 67 mL/min/1.73m2 >60 [facility] Glomerular filtration rate/1.73 sq M pre dicted among blacks [Volume Rate/Area] in Serum or Plasma by Creatinine-based formula (MDRD) 78 mL/min/1.73m2 >60 [facility] ID Date Data Source [id number] 08/29/2020 12:43:29 AM [facility] Name Value Range Interpretation Code Description Data Kiana rce(s) Supporting Document(s) Heparin unfractionated [Units/volume] in Platelet poor plasma by Chromogenic method 0.43 U/ml [facility] [place] ID Date Data Source [id number] 08/29/2020 01:11:00 AM [facility] Name Value Range Interpretation Code Description Data Kiana rce(s) Supporting Document(s) Troponin T.cardiac [Mass/volume] in Serum or Plasma 0.14 ng/mL <0.01 [facility] Results called to and read back by COLETTE PHILIP RN ON 8G AT [phone] [id number] BY [id number] ID Date Data Source [id number] 08/28/2020 06:23:21 PM [facility] XR CHEST FRONTAL ONLY [id number] RESULTI nterpreted by:Colby Taylor, MDPROCEDURE INFORMATION: Exam: XR Chest, 1 View Exam [...] THIS DOCUMENT HAS BEEN ELECTRONICALLY SIGNED BY COLBY TAYLOR MDThis document has been electronically signed by Colby Taylor MD on 08/28/2020 6:23 PM Name Value Range Interpretation Code Description Data Kiana rce(s) Supporting Document(s) ID Date Data Source [id number] 08/28/2020 06:40:04 PM [facility] Name Value Range Interpretation Code Description Data Kiana rce(s) Supporting Document(s) Leukocytes [#/volume] in Blood by Automated count 8.3 10*3/uL 4-10 [facility] Erythrocytes [#/volume] in Blood by Automated count 3.91 10*6/uL 4.6- 6.1 L [facility] Hemoglobin [Mass/volume] in Blood 12.0 g/dL 13.5-18 L [facility] Hematocrit [Volume Fraction] of Blood by Automated count 35.5 % 4 1-53 L [facility] Erythrocyte mean corpuscular volume [Entitic volume] by Auto mated count 90.9 fL 80-96 [facility] Erythrocyte mean corpuscular hemoglobin [Entitic mass] by Automated count 30.7 pg 27-33 [facility] Erythrocyte mean corpuscular hemoglobin concentration [Mass/volume] by Automated count 33.7 g/dL 32.0-36.0 [facility] Erythrocyte distribution width [Ratio] by Automated count 14.0 % 11.5-14.5 [facility] Platelets [#/volume] in Blood by Automated count 220 10*3/uL 150-400 [facility] ID Date Data Source [id number] 08/28/2020 07:03:47 PM [facility] Name Value Range Interpretation Code Description Data Kiana rce(s) Supporting Document(s) Bicarbonate [Moles/volume] in Serum 21 mmol/L 22-29 L [facility] Chloride [Moles/volume] in Serum or Plasma 104 mmol/L 98-107 [facility] Creatinine [Mass/volume] in Serum or Plasma 1.15 mg/dL 0.70-1.20 [facility] Glucose [Mass/volume] in Serum or Plasma 140 mg/dL 70-140 [facility] Potassium [Moles/volume] in Serum or Plasma 4.0 mmol/L 3.4-5.1 [facility] Sodium [Moles/volume] in Serum or Plasma 137 mmol/L 136-145 [facility] Urea nitrogen [Mass/volume] in Serum or Plasma 21 mg/dL 8-23 [facility] Anion gap 3 in Serum or Plasma 12 mmol/L 8-15 [facility] Osmolality of Serum or Plasma by calculation 289 mosm/kg 275-300 [facility] Creatinine/Urea nitrogen [Mass Ratio] in Serum or Plasma 18 [facility] Calcium [Mass/volume] in Serum or Plasma 8.9 mg/dL 8.8-10.2 [facility] Glomerular filtration rate/1.73 sq M pre dicted among non-blacks [Volume Rate/Area] in Serum or Plasma by Creatinine-based formula (MDRD) 66 mL/min/1.73m2 >60 [facility] Glomerular filtration rate/1.73 sq M pre dicted among blacks [Volume Rate/Area] in Serum or Plasma by Creatinine-based formula (MDRD) 77 mL/min/1.73m2 >60 [facility] ID Date Data Source [id number] 08/28/2020 07:03:47 PM [facility] Value Range Interpretation Code Description Data Kiana rce(s) Supporting Document(s) Magnesium [Mass/volume] in Serum or Plasma 1.8 mg/dL 1.6-2.4 [facility] ID Date Data Source [id number] 08/28/2020 07:03:47 PM [facility] Value Range Interpretation Code Description Data Kiana rce(s) Supporting Document(s) Phosphate [Mass/volume] in Serum or Plasma 2.9 mg/dL 2.5-4.5 [facility] ID Date Data Source [id number] 08/28/2020 07:10:57 PM [facility] Value Range Interpretation Code Description Data Kiana rce(s) Supporting Document(s) Heparin unfractionated [Units/volume] in Platelet poor plasma by Chromogenic method 0.31 U/[facility] ID Date Data Source [id number] 08/28/2020 07:10:57 PM [facility] Name Value Range Interpretation Code Description Data Kiana rce(s) Supporting Document(s) Prothrombin time (PT) 14.2 s 12.5-14.9 [facility] INR in Platelet poor plasma by Coagulation assay 1.09 [facility] Routine intensity oral anticoagulation I NR is typically 2.0-3.0. Target INR must be clinically individualized. ID Date Data Source [id number] 08/28/2020 08:13:00 PM [facility] Name Value Range Interpretation Code Description Data Kiana rce(s) Supporting Document(s) Cholesterol [Mass/volume] in Serum or Plasma 206 mg/dL <200 H [facility] Triglyceride [Mass/volume] in Serum or Plasma 45 mg/dL <150 [facility] Cholesterol in HDL [Mass/volume] in Serum or Plasma 51 mg/dL >40 [facility] Cholesterol in LDL [Mass/volume] in Serum or Plasma by calcu lation 146 mg/dL <100 H [facility] Cholesterol in VLDL [Mass/volume] in Serum or Plasma by calc ulation 9 mg/dl 16-42 L [facility] Cholesterol non HDL [Mass/volume] in Serum or Plasma 155 mg/dL <130 H [facility] ID Date Data Source [id number] 08/28/2020 07:24:20 PM [facility] Name Value Range Interpretation Code Description Data Kiana rce(s) Supporting Document(s) Hepatitis C virus Ab [Presence] in Serum or Plasma by Immuno assay Non Reactive [facility] No serological evidence of active infect ion. If recent exposure is suspected, test for HCV RNA. ID Date Data Source [id number] 05/16/2020 12:35:00 PM [facility] Name Value Range Interpretation Code Description Data Kiana rce(s) Supporting Document(s) [facility] pathology study [facility] FINAL DIAGNOSIS Colon polyps, polypectomy: Tubular adenoma, fragments. Separate fragments of hyperplastic polyp. 06/09/20201254 CLINICAL DIAGNOSIS Hx of colon polyps 06/09/20201254 GROSS DIAGNOSIS Received in formalin labeled "colon polyps" is fragments of tissue measuring 0.6 x 0.4 x 0.3 cm. All in one. -OA 06/09/2020 - 1255 Signed DORA JUNIOR MD 06/09/2020 1251 Procedure Social History Code Duration Value Status Description Data Source(s ) Alcohol intake 09/17/2020 12:00:00 AM EST Not Currently completed [facility] Smoking 09/17/2020 12:00:00 AM EST Former smoker completed Former smoker [facility] Alcohol intake 08/28/2020 12:00:00 AM EST Ex-drinker (finding) comp leted Ex- drinker (finding) [facility] Tobacco use and exposure 08/28/2020 12:00:00 AM EST Never used co mpleted Never used [facility] Smoking 08/28/2020 12:00:00 AM EST Former smoker completed Former smoker [facility] Vital Signs ID Date Data Source UNK Name Value Range Interpretation Code Description Data Source(s) Oxygen saturation in Arterial blood by Pulse oximetry 97 % 97 % [facility] Body mass index (BMI) [Ratio] 27.35 kg/m2 27.35 kg/m2 [facility] Body weight 96.616 kg 96.616 kg [facility] Body height 188 cm 188 cm [facility] Heart rate 84 /min 84 /min [facility] Diastolic blood pressure 76 mm[Hg] 76 mm[Hg] [facility] Systolic blood pressure 132 mm[Hg] 132 mm[Hg] [facility] Body weight 91.287 kg 91.287 kg [facility] ([facility], ) Body mass index (BMI) [Ratio] 25.2 kg/m2 25.2 k g/m2 [facility] ([facility], ) Body weight 201.25 [lb_av] 201.25 [lb_av] [facility] ([facility], ) Body height 75 [in_i] 75 [in_i] [facility] ([facility], ) 6'3" Diastolic blood pressure 85 mm[Hg] 85 mm[Hg] [facility] ([facility], ) Systolic blood pressure 131 mm[Hg] 131 mm[Hg] [facility] Body weight 100.246 kg 100.246 kg [facility] ([facility]) Body mass index (BMI) [Ratio] 27.6 kg/m2 27.6 k g/m2 [facility] ([facility]) Body weight 221.00 [lb_av] 221.00 [lb_av] [facility] Body height 75 [in_i] 75 [in_i] [facility] ([facility]) 6'3" Diastolic blood pressure 60 mm[Hg] 60 mm[Hg] [facility] ([facility]) Systolic blood pressure 130 mm[Hg] 130 mm[Hg] M [facility] ([facility]) Diastolic blood pressure 95 mm[Hg] 95 mm[Hg] eCW1 ([facility]) Systolic blood pressure 147 mm[Hg] 147 mm[Hg] e CW1 ([facility]) Body temperature 98.4 [degF] 98.4 [degF] eCW1 ( [facility]) Respiratory rate 18 /min 18 /min eCW1 ([facility]) Heart rate 89 /min 89 /min W1 ([facility]) Body mass index (BMI) [Ratio] 30.16 kg/m2 30.16 kg/m2 [facility] ([facility]) Body height 72 [in_us] 72 [in_us] eCW1 ([facility]) Body weight Measured 222.4 [lb_av] 222.4 [lb_av ] eCW1 ([facility]) Body weight 99.792 kg 99.792 kg [facility] ([facility]) Body mass index (BMI) [Ratio] 27.1 kg/m2 27.1 k g/m2 [facility] ([facility]) Body weight 220.00 [lb_av] 220.00 [lb_av] [facility] Body height 75.5 [in_i] 75.5 [in_i] [facility] ([facility], ) 6'3.50" ID Date Data Source [id number] 09/06/2020 07:34:09 AM [facility] Name Value Range Interpretation Code Description Data Source(s) WEIGHT RECORDED 214.[address] [facility] WEIGHT RECORDED [address] [facility] Body height Measured 72 in 72 in [facility] TRANSFER FROM [facility] Patient Treatment Plan of Care Planned Activity Planned Date Details Description Data Source (s) Prednisone 10 MG Oral Tablet 09/13/2020 12:00:00 AM [facility] 24 HR metoprolol succinate 200 MG Extended Release Ora l Tablet [Toprol] 08/30/2020 12:00:00 AM [facility] Levetiracetam 250 MG Oral Tablet 08/30/2020 12:00:00 AM [facility] 24 HR Isosorbide Mononitrate 30 MG Extended Release Or al Tablet 08/30/2020 12:00:00 AM [facility] Hydrochlorothiazide 12.5 MG Oral Tablet 08/30/2020 12:00:00 AM [facility] Hydralazine Hydrochloride 25 MG Oral Tablet 08/30/2020 12:00:00 AM [facility] atorvastatin 20 MG Oral Tablet 08/30/2020 12:00:00 AM [facility] Levetiracetam 250 MG Oral Tablet 08/30/2020 12:00:00 AM [facility] 24 HR metoprolol succinate 200 MG Extended Release Ora l Tablet 08/30/2020 12:00:00 AM [facility] 24 HR Isosorbide Mononitrate 30 MG Extended Release Or al Tablet 08/30/2020 12:00:00 AM [facility] Hydrochlorothiazide 12.5 MG Oral Tablet 08/30/2020 12:00:00 AM [facility] Hydralazine Hydrochloride 25 MG Oral Tablet 08/30/2020 12:00:00 AM [facility] atorvastatin 20 MG Oral Tablet 08/30/2020 12:00:00 AM [facility] perflutren lipid microspheres (DEFINITY) injectable desai spension 9.78 mg 08/29/2020 08:33:29 AM [facility] albuterol (PROVENTIL HFA) inhaler 2 puff 08/28/2020 06:03:37 PM [facility] sildenafil 100 MG Oral Tablet 07/12/2020 12:00:00 AM EDT [facility] POLYETHYLENE GLYCOL 3350 142 MG/ML Oral Solution 07/12/2020 12:00:0 0 AM EDT [facility] Omeprazole 20 MG Delayed Release Oral Capsule 07/12/2020 12:00:00 A M EDT [facility] Metronidazole 500 MG Oral Tablet 06/19/2020 12:00:00 AM EDT [facility] Levofloxacin 500 MG Oral Tablet 06/19/2020 12:00:00 AM EDT [facility] Diphenhydramine Hydrochloride 50 MG Oral Capsule [Jenna phen] 06/14/2020 12:00:00 AM EDT [facility] Aspirin 81 MG Delayed Release Oral Tablet 06/14/2020 12:00:00 AM ED T [facility] Allopurinol 300 MG Oral Tablet 06/14/2020 12:00:00 AM EDT [facility] 24 HR Levetiracetam 500 MG Extended Release Oral Tablet [facility] levETIRAcetam (KEPPRA PO) [facility] sildenafil 100 MG Oral Tablet [facility] latanoprost 0.05 MG/ML Ophthalmic Solution [facility] Hydrochlorothiazide 25 MG Oral Tablet [facility] Loratadine 10 MG Oral Tablet [facility] Metoprolol Tartrate 50 MG Oral Tablet [facility] Clonidine Hydrochloride 0.1 MG Oral Tablet [facility]
[2020-10-30 02:23] LABS: BASO % 0.2 % (0.0-1.0); EOS # 1.3 10^3/uL (0.0-0.5); EOS % 12.8 % (0.0-3.0); HEMOGLOBIN 11.4 g/dl (13.5-17.5); LYMPH # 1.6 10^3/uL (1.5-5.0); MEAN CORPUSCULAR HEMOGLOBIN 30.2 pg (27.0-33.0); MEAN CORPUSCULAR HGB CONC 32.6 g/dl (32.0-36.5); MEAN CORPUSCULAR VOLUME 92.6 fl (80.0-96.0); MONO # 0.5 10^3/uL (0.0-0.8); MONO % 4.7 % (0.0-5.0); NEUTROPHILS # 6.5 10^3/uL (1.5-8.5); NEUTROPHILS % 65.8 % (36.0-66.0); PLATELET COUNT, AUTOMATED 260 10^3/uL (150-450); RED BLOOD COUNT 3.78 10^6/uL (4.30-6.10); WHITE BLOOD COUNT 9.9 10^3/uL (4.0-10.0)
[2020-10-30] MEDS: COMBIVENT RESPIMAT 100-20MCG INHALER 4GM INH SCH ×2 (02:34→02:42)
[2020-10-30 02:37] LABS: ALBUMIN 3.7 GM/DL (3.2-5.2); ALT/SGPT 14 U/L (12-78); BILIRUBIN,DIRECT 0.1 MG/DL (0.0-0.2); BILIRUBIN,TOTAL 0.4 MG/DL (0.2-1.0); BLOOD UREA NITROGEN 25 MG/DL (7-18); CALCIUM LEVEL 8.6 MG/DL (8.8-10.2); CARBON DIOXIDE LEVEL 25 MEQ/L (21-32); CHLORIDE LEVEL 97 MEQ/L (98-107); CK-MB VALUE MASS 1.4 NG/ML (<3.6); CPK CREATINE PHOSPHOKINASE 82 U/L (39-308); CREATININE FOR GFR 1.85 MG/DL (0.70-1.30); GLUCOSE, FASTING 113 MG/DL (70-100); MB/CK RELATIVE INDEX 1.71 (< OR =4); NT-PRO BNP 91 PG/ML (<125); SODIUM LEVEL 133 MEQ/L (136-145); TOTAL PROTEIN 6.7 GM/DL (6.4-8.2); TROPONIN I < 0.02 NG/ML (< 0.10)
--- OUTSIDE RECORDS SUMMARY | 2020-10-30 03:14 | CCD ---
Author Author [facility] Organization [facility] Address Unknown Phone Unavailable Care Team Providers Care National Facilities Manager Name Role Phone Obed Lara RECREATIONAL VEHICLE RESORT MANAGER Unavailable Unavailable Dietsche, M Marycarmen RECREATIONAL VEHICLE RESORT MANAGER Unavailable Unavailable Dietsche, M Marycarmen RECREATIONAL VEHICLE RESORT MANAGER Unavailable Unavailable Dietsche, M Marycarmen RECREATIONAL VEHICLE RESORT MANAGER Unavailable Unavailable Dietsche, M Marycarmen RECREATIONAL VEHICLE RESORT MANAGER Unavailable Unavailable Dietsche, M Marycarmen RECREATIONAL VEHICLE RESORT MANAGER Unavailable Unavailable Dietsche, M Marycarmen RECREATIONAL VEHICLE RESORT MANAGER Unavailable Unavailable Dietsche, M Marycarmen RECREATIONAL VEHICLE RESORT MANAGER Unavailable Unavailable Dietsche, M Marycarmen RECREATIONAL VEHICLE RESORT MANAGER Unavailable Unavailable Dietsche, M Marycarmen RECREATIONAL VEHICLE RESORT MANAGER Unavailable Unavailable Dietsche, M Marycarmen RECREATIONAL VEHICLE RESORT MANAGER Unavailable Unavailable Dietsche, M Marycarmen RECREATIONAL VEHICLE RESORT MANAGER Unavailable Unavailable Erika Garcia MD Unavailable [...] is protected by Article 27-F of the [facility] Public Health law. If you continue you may have access to information: Regarding HIV / AIDS; Provided by facilities licensed or operated by the [facility] Office of Mental Health; or Provided by the [facility] Office for People With Developmental Disabilities. If such information is present, then the following [facility] mandated warning applies: This information has been [...] law may result in a fine or halfway sentence or both. A general authorization for the release of medical or other information is NOT sufficient authorization for further disc losure. Allergies and Adverse Reactions Type Description Substance Reaction Status Data Source(s ) nsaids bee stings nsaids bee stings nsaids bee stings Unknown Act scot eCW1 ([facility]) Sulfacet Sulfacet Sulfacet Unknown Active eCW1 ([facility]) Encounters Encounter Providers Location Date Indications Data Source(s ) Outpatient Attender: Erika Garcia MD [email or web address] 1210/2019 12:00:00 AM EST - 09/17/2020 11:58:29 AM EST [facility] Inpatient Attender: RICHI QUEZADA ttender: DRU HOLLIDAY MDAdmitter: RICHI HAYESReferrer: DRU HOLLIDAY MD [id number] 08/28/2020 12:00:0 0 AM EST - 08/30/2020 12:48:00 PM EST Non-ST elevation (NSTEMI) myocardial infarction [facility] Non-ST elevation (NSTEMI) myocardial inf arction Patient discharged. [facility] [address] [place] [phone] 04/09/2020 12:00:00 AM EDT eCW1 ([facility]) Outpatient Referrer: Marycarmen Lara NP 04/08/2020 02:23:00 PM EDT [facility] Outpatient Referrer: Marycarmen Lara NP 03/05/2020 02:43:00 PM EDT [facility] Outpatient Referrer: Marycarmen Lara NP 12/14/2019 05:10:00 AM EST [facility] Outpatient Referrer: Marycarmen Lara NP 11/12/2019 07:09:00 PM EST [facility] Outpatient Referrer: Marycarmen Lara NP 11/12/2019 06:41:00 PM EST [facility] [address] [place] [phone] 10/06/2019 12:00:00 AM EST eCW1 ([facility]) [facility] [address] [place] [phone] 10/03/2019 12:00:00 AM EST eCW1 ([facility]) [facility] [address] [place] [phone] 09/29/2019 12:00:00 AM EST eCW1 ([facility]) Medications Medication Brand Name Start Date Product [...] 10 11 AND 1 DAILY ON DAYS [facility] 24 HR metoprolol succinate 50 MG Extende d Release Oral Tablet metoprolol (TOPROL-XL) 24 hr tablet 200 mg metoprolol (TOPROL-XL) 24 hr tablet 200 mg 08/30/2020 09:00:00 AM EST 200 mg Oral active 200 mg, Oral, Daily Standard, First dose on Wed08/30/20 at 0900, For 30 days
Do not crush or chew
[facility] Medication administered onsite 24 HR Isosorbide Mononitrate 30 MG Exten ded Release Oral Tablet isosorbide mononitrate (IMDUR) 24 hr tablet 30 mg isosorbide mononitrate (IMDUR) 24 hr tablet 30 mg 08/30/2020 09:00:00 AM EST 30 mg Oral activ e 30 mg, Oral, Daily Standard, First dose on Wed08/30/20 at 0900, For 30 days
DO NOT CRUSH/CHEW
[facility] Medication administered onsite 0.4 ML Enoxaparin sodium 100 MG/ML Prefi lled Syringe enoxaparin sodium (LOVENOX) injection 40 mg enoxaparin sodium (LOVENOX) injection 40 mg 08/30/2020 09:00:00 AM EST 40 mg Subcutaneous active 40 mg, Subcutaneous, Daily Standard, First dose on Wed08/30/20 at 0900, For 30 days [facility] Medication administered onsite atorvastatin 20 MG Oral Tablet atorvastatin (LIPITOR) 20 MG tablet atorvastatin (LIPITOR) 20 MG tablet 08/30/2020 12:00:00 AM EST active [facility] 24 HR Isosorbide Mononitrate 30 MG Exten ded Release Oral Tablet isosorbide mononitrate (IMDUR) 30 MG 24 hr tablet isosorbide mononitrate (IMDUR) 30 MG 24 hr tablet 08/30/2020 12:00:00 AM EST 30 mg Oral active Take 30 mg by mouth [facility] Hydrochlorothiazide 12.5 MG Oral Tablet hydrochlorothiazide (HYDRODIURIL) 12.5 MG tablet hydrochlorothiazide (HYDRODIURIL) 12.5 MG tablet 08/30 12:00:00 AM EST 12.5 mg Oral active Take 12.5 mg by mouth [facility] Hydralazine Hydrochloride 25 MG Oral Tab let hydrALAZINE (APRESOLINE) 25 MG tablet hydrALAZINE (APRESOLINE) 25 MG tablet 08/30/2020 12:00:00 AM EST 25 mg Oral active Take 25 mg by mouth [facility] atorvastatin 20 MG Oral Tablet Atorvastatin Calcium 20 MG Oral Tablet (LIPITOR) Atorvastatin Calcium 20 MG Oral Tablet (LIPITOR) 08/30/2020 12:00:00 AM EST 20 mg Oral active Take 1 tablet by mouth e very evening [facility] Hydralazine Hydrochloride 25 MG Oral Tab let hydrALAZINE HCl 25 MG Oral Tablet (APRESOLINE) hydrALAZINE HCl 25 MG Oral Tablet (APRESOLINE) 020 12:00:00 AM EST 25 mg Oral active Take 1 tablet by mouth every 8 (eight) hours [facility] 24 HR metoprolol succinate 200 MG Extend ed Release Oral Tablet Metoprolol Succinate ER 200 MG Oral Tablet Extended Release 24 Hour (TOPROL-XL) Metoprolol Succinate ER 200 MG Oral Tablet Extended Release 24 Hour (TOPROL-XL) 08/30/2020 12:00:00 AM EST 200 mg Oral active Take 1 t ablet by mouth daily [facility] Levetiracetam 250 MG Oral Tablet levETIRAcetam 250 MG Oral Tablet (Keppra) levETIRAcetam 250 MG Oral Tablet (Keppra) 08/30/2020 12:00:00 AM EST 250 mg Oral active Take 1 tablet by abel th Two Times Daily [facility] Hydrochlorothiazide 12.5 MG Oral Tablet hydroCHLOROthiazide 12.5 MG Oral Tablet (HYDRODIURIL) hydroCHLOROthiazide 12.5 MG Oral Tablet (HYDRODIURIL) 08/30/2020 12:00:00 AM EST 12.5 mg Oral active Take 1 tablet by mouth daily [facility] 24 HR Isosorbide Mononitrate 30 MG Exten ded Release Oral Tablet Isosorbide Mononitrate ER 30 MG Oral Tablet Extended Release 24 Hour (IMDUR) Isosorbide Mononitrate ER 30 MG Oral Tablet Extended Release 24 Hour (IMDUR) 08/30/2020 12:00:00 AM EST 30 mg Oral active Take 1 t ablet by mouth daily [facility] Levetiracetam 250 MG Oral Tablet levETIRAcetam (KEPPRA ) 250 MG tablet levETIRAcetam (KEPPRA) 250 MG tablet 08/30/2020 12:00:00 AM EST 250 m g Oral active Take 250 mg by mouth [facility] 24 HR metoprolol succinate 200 MG Extend ed Release Oral Tablet [Toprol] TOPROL XL 200 MG 24 hr tablet TOPROL XL 200 MG 24 hr tablet 08/30/2020 12:00:00 AM EST active [facility] Hydralazine Hydrochloride 25 MG Oral Tab let hydrALAZINE (APRESOLINE) tablet 25 mg hydrALAZINE (APRESOLINE) tablet 25 mg 08/29/2020 09:00:00 PM EST 25 mg Oral active 25 mg, Oral, E very 8 hours Standard (3 times per day), First dose on Wed08/29/20 at 2100, For 30 days
Check vital signs before administering
[facility] Medication administered onsite atorvastatin 20 MG Oral Tablet atorvastatin (LIPITOR) tablet 20 mg atorvastatin (LIPITOR) tablet 20 mg 08/29/2020 09:00:00 PM EST 20 mg Oral active 20 mg, Oral, Every evening, First dose (after last modification) on [place] 08/29/20 at 2100, For 29 doses [facility] Medication administered onsite Cholecalciferol 1000 UNT Oral Tablet vit lugo D3 (CHOLECALCIFEROL) tablet 2,000 Units vitamin D3 (CHOLECALCIFEROL) tablet 2,000 Units 2019 09:00:00 AM EST 2000 U Oral active 2,000 Un its, Oral, Daily Standard, First dose on [facility] 08/29/20 at 0900, For 30 days
25 mcg vitamin D3 = 1,000 international units vitamin D3.
[facility] Medication administered onsite pantoprazole 20 MG Delayed Release Oral Tablet pantoprazole (PROTONIX) EC tablet 20 mg pantoprazole (PROTONIX) EC tablet 20 mg 08/29/2020 09:00:[address] 20 mg Oral active 20 mg, Ora l, Daily Standard, First dose on [facility] 08/29/20 at 0900, For 30 days
Do not crush or chew
[facility] Medication administered onsite Hydrochlorothiazide 25 MG Oral Tablet hy drochlorothiazide (HYDRODIURIL) tablet 12.5 mg hydrochlorothiazide (HYDRODIURIL) tablet 12.5 mg 08/29 09:00:00 AM EST 12.5 mg Oral active 12.5 mg, Oral, Daily Standard, First dose on [facility] 08/29/20 at 0900, For 30 days [facility] Medication administered onsite doxepin (SINEQUAN) capsule 75 mg 08/29/2020 09:00:00 AM EST 75 mg Oral active 75 mg, Oral, Daily Standard, First dose on [facility] 08/29/20 at 0900, For 30 days [facility] Medication administered onsite Allopurinol 300 MG Oral Tablet allopurinol (ZYLOPRIM) tablet 300 mg allopurinol (ZYLOPRIM) tablet 300 mg 08/29/2020 09:00:00 AM EST 300 mg Oral active 300 mg, Oral, Daily Standard, First dose on [facility] 08/29 at 0900, For 30 days [facility] Medication administered onsite clopidogrel 75 MG Oral Tablet clopidogrel (PLAVIX) tab let 75 mg clopidogrel (PLAVIX) tablet 75 mg 08/29/2020 09:00:00 AM EST 75 mg Oral aborted 75 mg, Oral, Daily Standard, First dose on [place] 08/29/20 at 0900, For 30 days [facility] Medication administered onsite Aspirin 81 MG Delayed Release Oral Tablet aspirin EC E C tablet 81 mg aspirin EC EC tablet 81 mg 08/29/2020 09:00:00 AM EST 81 mg Oral ac tive 81 mg, Oral, Daily Standard, First dose on [place] 08/29/20 at 0900, For 30 days [facility] Medication administered onsite perflutren lipid microspheres (DEFINITY) injectable suspensi on 9.78 mg [id number] 08/29/2020 08:33:29 AM EST 1.5 mL Intravenous active 9.78 mg (1.5 mL), Intravenous, Once PRN, Other, Echo imaging enhancement, Starting [place] 08/29/20 at 0833, For 72 hours [facility] Medication administered onsite fentaNYL (SUBLIMAZE) (PF) injection 12.5 mcg [id number] 08/29/2020 01:15:00 AM EST 12.5 ug Intravenous completed 12 .5 mcg, Intravenous, Once, [facility] 08/29/20 at 0115, For 1 dose [facility] Medication administered onsite Doxepin Hydrochloride 50 MG Oral Capsule doxepin (SINE LEON) capsule 50 mg doxepin (SINEQUAN) capsule 50 mg 08/28/2020 10:00:00 PM EST 50 mg Oral active 50 mg, Oral, Nightly , First dose on Wed08/28/20 at 2200, For 30 days [facility] Medication administered onsite Metoprolol Tartrate 50 MG Oral Tablet metoprolol (LOPR ESSOR) tablet 100 mg metoprolol (LOPRESSOR) tablet 100 mg 08/28/2020 09:00:00 PM EST 100 m g Oral completed 100 mg, Oral, 2 Times Daily, First dose on Wed08/28/20 at 2100, For 3 doses [facility] Medication administered onsite Levetiracetam 250 MG Oral Tablet levETIRAcetam (KEPPRA ) tablet 250 mg levETIRAcetam (KEPPRA) tablet 250 mg 08/28/2020 09:00:00 PM EST 250 m g Oral active 250 mg, Oral, 2 Times Daily, First dose on Wed08/28/20 at 2100, For 30 days [facility] Medication administered onsite atorvastatin 40 MG Oral Tablet atorvastatin (LIPITOR) tablet 80 mg atorvastatin (LIPITOR) tablet 80 mg 08/28/2020 09:00:00 PM EST 80 mg Oral aborted 80 mg, Oral, Every evening, First dose on Wed08/28/20 at 2100, For 30 days [facility] Medication administered onsite Clonidine Hydrochloride 0.1 MG Oral Tablet cloNIDine ( CATAPRES) tablet 0.1 mg cloNIDine (CATAPRES) tablet 0.1 mg 08/28/2020 09:00:00 PM EST 0.1 mg Oral aborted 0.1 mg, Oral, 2 Time s Daily, First dose on Wed08/28/20 at 2100, For 30 days
Check vital signs before administering
[facility] Medication administered onsite Clonazepam 1 MG Oral Tablet clonazePAM (KLONOPIN) tabl et 0.5 mg clonazePAM (KLONOPIN) tablet 0.5 mg 08/28/2020 09:00:00 PM EST 0.5 mg Oral active 0.5 mg, Oral, 2 Times Daily, First dose on Wed 0 at 2100, For 30 days [facility] Medication administered onsite magnesium sulfate in dextrose 5 % infusion (premix) 1 g [id number] 08/28/2020 08:30:00 PM EST 1 g Intravenous completed 1 g, Intravenous, Administer over 60 Minutes, Once, Wed08/28/20 at 2030, For 1 dose [facility] Medication administered onsite 60 ACTUAT Budesonide 0.16 MG/ACTUAT / fo rmoterol fumarate 0.0045 MG/ACTUAT Metered Dose Inhaler budesonide-formoterol (SYMBICORT) 160-4.5 MCG/ACT inhaler 2 puff budesonide-formoterol (SYMBICORT) 160-4.5 MCG/ACT inha ler 2 puff 08/28/2020 08:00:00 PM EST 2 {puff} Inhalation active 2 puff, Inhalation, 2 Times Daily, First dose on Wed08/28/20 at 2000, For 14 days
Shake well before usingTherapeutic sub for Advair
[facility] Medication administered onsite NaCl infusion 0.9 % [id number] 08/28/2020 07:00:00 PM EST Intravenous completed at 100 mL/hr, Intrav enous, Continuous, Starting Wed08/28/20 at 1900, For 5 hours [facility] Medication administered onsite Nitroglycerin 0.02 MG/MG Topical Ointment nitroglyceri n ointment 2 % 1 inch nitroglycerin ointment 2 % 1 inch 08/28/2020 07:00:00 PM EST 1 [ in_us] Transdermal aborted 1 inch, Trans dermal, Every 6 hours, First dose on Wed08/28/20 at 1900, For 2 days [facility] Medication administered onsite albuterol (PROVENTIL HFA) inhaler 2 puff [id number] 08/28/2020 06:03:37 PM EST 2 {puff} Inhalation active 2 pu ff, Inhalation, Every 6 hours PRN, Wheezing, Starting Wed08/28/20 at 1803, For 4 days
Shake the inhaler well before each spray.
[facility] Medication administered onsite sildenafil 100 MG Oral Tablet sildenafil (VIAGRA) 100 MG tablet sildenafil (VIAGRA) 100 MG tablet 07/12/2020 12:00:00 AM EDT active [facility] POLYETHYLENE GLYCOL 3350 142 MG/ML Oral Solution polyethylene glycol (GLYCOLAX) 17 GM/SCOOP powder polyethylene glycol (GLYCOLAX) 17 GM/SCOOP powder 06/19 12:00:00 AM EDT active [facility] Omeprazole 20 MG Delayed Release Oral Ca psule omeprazole (PRILOSEC) 20 MG capsule omeprazole (PRILOSEC) 20 MG capsule 07/12/2020 12:00:00 AM EDT active [facility] Levofloxacin 500 MG Oral Tablet levofloxacin (LEVAQUIN ) 500 MG tablet levofloxacin (LEVAQUIN) 500 MG tablet 06/19/2020 12:00:00 AM EDT 50 0 mg Oral active Take 500 mg by mouth lalo y [facility] Metronidazole 500 MG Oral Tablet metroNIDAZOLE (FLAGYL ) 500 MG tablet metroNIDAZOLE (FLAGYL) 500 MG tablet 06/19/2020 12:00:00 AM EDT 500 m g Oral active Take 500 mg by mouth 3 (thre e) times a day [facility] Diphenhydramine Hydrochloride 50 MG Oral Capsule [Banophen] BANOPHEN 50 MG capsule BANOPHEN 50 MG capsule 06/14/2020 12:00:00 AM EDT active [facility] Allopurinol 300 MG Oral Tablet allopurinol (ZYLOPRIM) 300 MG tablet allopurinol (ZYLOPRIM) 300 MG tablet 06/14/2020 12:00:00 AM EDT active [facility] Aspirin 81 MG Delayed Release Oral Tablet ASPIRIN LOW DOSE 81 MG EC tablet ASPIRIN LOW DOSE 81 MG EC tablet 06/14/2020 12:00:00 AM EDT active [facility] Clonidine Hydrochloride 0.1 MG Oral Tablet cloNIDine ( CATAPRES) 0.1 MG tablet cloNIDine (CATAPRES) 0.1 MG tablet 0.1 mg Oral abo rted Take 0.1 mg by mouth Two Times Daily [facility] Metoprolol Tartrate 50 MG Oral Tablet metoprolol (LOPR ESSOR) 50 MG tablet metoprolol (LOPRESSOR) 50 MG tablet 50 mg Oral ab orted Take 50 mg by mouth Two Times Daily [facility] sildenafil 100 MG Oral Tablet sildenafil (VIAGRA) 100 MG tablet sildenafil (VIAGRA) 100 MG tablet 100 mg Oral aborted Take 100 mg by mouth as needed for Erectile Dysfunction [facility] levETIRAcetam (KEPPRA PO) Oral aborte d Take by mouth Two Times Daily [facility] 24 HR Levetiracetam 500 MG Extended Rele ase Oral Tablet levETIRAcetam ER 500 MG Oral Tablet Extended Release 24 Hour (KEPPRA XR) levETIRAcetam ER 500 MG Oral Tablet Extended Release 24 Hour (KEPPRA XR) 1000 mg Oral aborted Take 1,000 mg by mouth nightly [facility] Loratadine 10 MG Oral Tablet loratadine (CLARITIN) 10 MG tablet loratadine (CLARITIN) 10 MG tablet 10 mg Oral aborted Take 10 mg by mouth daily [facility] Hydrochlorothiazide 25 MG Oral Tablet hy drochlorothiazide (HYDRODIURIL) 25 MG tablet hydrochlorothiazide (HYDRODIURIL) 25 MG tablet 25 mg O ral aborted Take 25 mg by mouth daily [facility] latanoprost 0.05 MG/ML Ophthalmic Soluti on latanoprost (XALATAN) 0.005 % ophthalmic solution latanoprost (XALATAN) 0.005 % ophthalmic solution 1 [drp] aborted 1 drop nightly [facility] Insurance Providers Payer name Policy type / Coverage type Policy ID Covered democrat ID Covered democrat's relationship to crenshaw Policy [place] Plan Information [employer] [place] [id number] SP [id number] SELF PAY ONLY [id number] SP [id number] WPS [facility] [id number] SP [id number] 'S ADMINISTRATION [id number] SP [id number] FOR LIFE [id number] SP [id number] MEDICARE [id number] SP [id number] COMMERCIAL GENERIC [id number] Vera [id number] COMMERCIAL GENERIC [id number] OTHER B [id number] Self [id number] OTHER B [id number] Self [id number] [facility] O [id number] S [id number] [employer] [place] O [id number] S [id number] MEDICARE [id number] SP [id number] FOR LIFE O [id number] S [id number] MEDICARE C [id number] S [id number] EAST ACTIVE DUTY [id number] SP [id number] WEST O [id number] S [id number] [place] B C [id number] S [id number] 'S ADMINISTRATION [id number] SP [id number] 'S ADMINISTRATION [id number] SP [id number] 'S ADMINISTRATION [id number] [facility] [id number] SP [id number] MEDICARE [id number] SP [id number] A [facility] [id number] S [id number] [facility] WATN FEDERAL B [id number] S [id number] [facility] [id number] SP [id number] [facility] [id number] Problems, Conditions, and Diagnoses Code Display Name Description Problem Type Effective Dates Data Source(s) I51.81 Stress-induced cardiomyopathy Stress-induced cardiomyo robert [id number] 09/17/2020 12:00:00 AM [facility] I21.4 NSTEMI (non-ST elevated myocardial infar ction) NSTEMI (non-ST elevated myocardial infarction) [id number] 08/28/2020 12:00:00 AM [facility] [id number] Essential hypertension Essential hypertension Problem 04/29/2020 12:00:00 AM EDT KALI ([facility], ) I21.4 Non-ST elevation (NSTEMI) myocardial inf arction Non-ST elevation (NSTEMI) myocardial inf Diagnosis 09/17/2020 10:30:55 AM EST [facility] I51.81 Takotsubo syndrome Takotsubo syndrome Diagnosis 10/2019 10:30:55 AM [facility] I21.4 Non-ST elevation (NSTEMI) myocardial inf arction Non-ST elevation (NSTEMI) myocardial infarction Diagnosis 08/28/2020 05:53:06 PM [facility] NSTEMI NSTEMI Diagnosis 08/28/2020 05:36:00 PM [facility] Surgeries/Procedures Procedure Description Date Indications Data Source(s) POCT AMB EKG POCT AMB EKG Routine 09/17/2020 11:23 AM EST NSTEMI (non-ST elevated myocardial infarction) 09/17/2020 04 :23:00 PM EST NSTEMI (non-ST elevated myocardial infarction) [facility] NSTEMI (non-ST elevated myocardial infar ction) BLOOD COUNT COMPLETE AUTO&AUTO DIFRNTL WBC COUNT CBC AND DIFFER ENTIAL Routine 09/10/2020 09/10/2020 12:00:00 AM [facility] LIPID PANEL LIPID PANEL Routine 09/09/2020 09/09/2020 1 2:00:00 AM EST [facility] BASIC METABOLIC PANEL CALCIUM TOTAL BASIC METABOLIC PANEL Routine 09/09/2020 09/09/2020 12:00:00 AM EST [facility] BLOOD COUNT COMPLETE AUTO&AUTO DIFRNTL WBC COUNT CBC AND DIFFER ENTIAL Routine 08/30/2020 4:28 AM EST 08/30/2020 04:28:00 AM [facility] CALCIUM IONIZED CALCIUM, IONIZED Routine 08/30/2020 4:28 AM EST 08/30/2020 04:28:00 AM [facility] BASIC METABOLIC PANEL CALCIUM TOTAL BASIC METABOLIC PANEL Routi ne 08/30/2020 4:28 AM EST 08/30/2020 04:28:00 AM [facility] L HRT ARTERY/VENTRICLE ANGIO L HRT ARTERY/VENTRICLE ANGIO 08/29/2020 11:27 AM EST NSTEMI 08/29/2020 11:27:00 AM EST - 08/29/2020 12:21:00 PM [facility] CARDIAC CATH PROCEDURE LOG CARDIAC CATH PROCEDURE LOG 08/29/2020 10:55 AM EST 08/29/2020 10:55:58 AM [facility] ECHO TTHRC R-T 2D W/WOM-MODE COMPL SPEC&COLR DOP ECHOCARDIO GRAM 2D COMPLETE Routine 08/29/2020 9:38 AM EST 08/29/2020 09:38:11 AM [facility] EKG 12-LEAD - CMAXX REPORT EKG 12-LEAD - CMAXX REPORT 08/29/2020 9:10 AM EST 08/29/2020 09:10:32 AM [facility] EKG 12-LEAD - CMAXX REPORT EKG 12-LEAD - CMAXX REPORT 08/29/2020 9:10 AM EST 08/29/2020 09:10:32 AM [facility] EKG 12-LEAD EKG 12-LEAD Routine 08/29/2020 9:10 AM EST 08/29/2020 09:10:32 AM [facility] FIRE TRUCK DRIVER PROCEDURE FIRE TRUCK DRIVER PROCEDURE Routine 08/29/2020 8:[address] 08/29/2020 08:43:41 AM [facility] PLATELET AGGREGATION IN VITRO EACH AGENT VERIFYNOW [id number] Routin e 08/29/2020 5:29 AM EST 08/29/2020 05:29:00 AM [facility] PROTHROMBIN TIME PROTIME INR Routine 08/29/2020 5:29 AM EST 08/29/2020 05:29:00 AM [facility] BLOOD COUNT COMPLETE AUTO&AUTO DIFRNTL WBC COUNT CBC AND DIFFER ENTIAL Routine 08/29/2020 5:29 AM EST 08/29/2020 05:29:00 AM [facility] TROPONIN QUANTITATIVE TROPONIN T Timed 08/29/2020 5:29 AM EST 08/29/2020 05:29:00 AM [facility] BASIC METABOLIC PANEL CALCIUM TOTAL BASIC METABOLIC PANEL Routi ne 08/29/2020 5:29 AM EST 08/29/2020 05:29:00 AM [facility] HEPARIN ASSAY ANTI-XA UNFRACTIONATED HEPARIN LEVEL Routine 08/29/2020 12:16 AM EST 08/29/2020 12:16:00 AM [facility] TROPONIN QUANTITATIVE TROPONIN T Timed 08/29/2020 12:16 AM EST 08/29/2020 12:16:00 AM [facility] EKG 12-LEAD - CMAXX REPORT EKG 12-LEAD - CMAXX REPORT 08/28/2020 6:21 PM EST 08/28/2020 06:21:48 PM [facility] EKG 12-LEAD - CMAXX REPORT EKG 12-LEAD - CMAXX REPORT 08/28/2020 6:21 PM EST 08/28/2020 06:21:48 PM [facility] EKG 12-LEAD EKG 12-LEAD STAT 08/28/2020 6:21 PM EST 08/28/2020 06:21:48 PM [facility] XR CHEST FRONTAL ONLY [id number] XR CHEST FRONTAL ONLY [id number] STAT 08/28/2020 6:15 PM EST 08/28/2020 06:15:00 PM [facility] HEPARIN ASSAY ANTI-XA UNFRACTIONATED HEPARIN LEVEL Routine 08/28/2020 6:12 PM EST 08/28/2020 06:12:00 PM [facility] HEPATITIS C ANTIBODY HEPATITIS C ANTIBODY Routine 08/28/2020 6:12 PM EST 08/28/2020 06:12:00 PM [facility] PROTHROMBIN TIME PROTIME INR Routine 08/28/2020 6:12 PM EST 08/28/2020 06:12:00 PM [facility] BLOOD COUNT COMPLETE AUTOMATED CBC Timed 08/28/2020 6:12 P M EST 08/28/2020 06:12:00 PM [facility] PHOSPHORUS INORGANIC PHOSPHORUS LEVEL Routine 08/28/2020 6:[address] 08/28/2020 06:12:00 PM [facility] MAGNESIUM MAGNESIUM LEVEL Routine 08/28/2020 6:12 PM EST 08/28/2020 06:12:00 PM [facility] LIPID PANEL LIPID PANEL Routine 08/28/2020 6:12 PM EST 08/28/2020 06:12:00 PM [facility] BASIC METABOLIC PANEL CALCIUM TOTAL BASIC METABOLIC PANEL Routi ne 08/28/2020 6:12 PM EST 08/28/2020 06:12:00 PM [facility] Colonoscopy W/ Poly 05/16/2020 12:00:00 AM EDT [facility] ([facility], ) Results ID Date Data Source [id number] 09/04/2020 03:02:[address] [facility] Name Value Range Interpretation Code Description Data Kiana rce(s) Supporting Document(s) Discharge Summary [facility] KDQTBl0aYsGPTuWa78/VKWscQGDpx1ImHTciMSp5NWovFPVyF0QfHBK2jZ5xZUQ2UXzOLeZfUsYmSGG5 lbm [file] RYXyQgVT8NWXs= ID Date Data Source [id number] 09/04/2020 02:44:[address] [facility] Name Value Range Interpretation Code Description Data Kiana rce(s) Supporting Document(s) History and Physical [facility] KKKXYq5jZmOOWdSr37/EWSugVHIhz5VwCHhfOTe2YBcxMXVuW3MoPGV3sX8fGAS3NIeWNuLdNxImXQK1 lbm [file] ICAgICAgICAgICAgICAgICAgICAgICAgICAgICAgICAgICAgICAgICAgICAgICAgICAgICAgICAgICAg LGUaHDHiHXPkQMUfGT7IPDKtDGIcVKQeXEWvCXHhIY AgICAgICAgICAgICAgICAgICAgICAgICAgICAgICAgICAgICAgICAgICAgICAgICAgICAgICAgICAgIC CbYYZhLHYyKVXfKFKsGMQjEWIeDVOnFK9OAMKtHTNoKWCpOUQaKXPzZNQtDLJyVTEvWNMzNGWsDSSzJQ AgICAgICAgICAgICAgICAgICAgICAgICAgICAgICAg WXNrYFTgQTDjWIKhZPPdLIVkNOQrPPKgFCThQJAjSLSxDO0FLMJxOUNhUCUsPRRtAYYzTBMpYIIqVKMh ICAgICAgICAgICAgICAgICAgICAgICAgICAgICAgICAgICAgICAgICAgICAgICAgICAgICAgICAgICAg EAAaPYMrFCBbWRYvPJUqAB1PMSQuGYUyIQKfWLToVV AgICAgICAgICAgICAgICAgICAgICAgICAgICAgICAgICAgICAgICAgICAgICAgICAgICAgICAgICAgIC BoXTUqPDPxIONnSBYgNKJnUWEyEAQhDWHpVP2PIWQrQSUtPBUeLTUnOBQsADHeJKXdJEZiJTRcDTMvUD AgICAgICAgICAgICAgICAgICAgICAgICAgICAgICAg ZDRpUVGsDKZqGNGpSATvUXJoXSSnJRKlHMRdEDIzLNXbKCMcWB6TTYPhBQYxGNBqULObWIErZASbNTLa ICAgICAgICAgICAgICAgICAgICAgICAgICAgICAgICAgICAgICAgICAgICAgICAgICAgICAgICAgICAg KRCiVQVgYELrADQrWKCoTBTtKA6JVJHsLERwDDYyVS AgICAgICAgICAgICAgICAgICAgICAgICAgICAgICAgICAgICAgICAgICAgICAgICAgICAgICAgICAgIC HzBHChWBSvPGJgMDCtLMXmAMCySAPbCCVwLEXjVQ2KETAxMJImRRLhSABhADLmTNNqWQIxIPFvHGKbAR AgICAgICAgICAgICAgICAgICAgICAgICAgICAgICAg FLLdJWZsNBMvXSFmRJChRWZcGZNxGIHvVEKsJCXfWHDzUZGkFQWoJJ1NQWKkUNRjGIWpXWHfGTCmLFZz ICAgICAgICAgICAgICAgICAgICAgICAgICAgICAgICAgICAgICAgICAgICAgICAgICAgICAgICAgICAg LMNjVEVgRIRkWLCkVEEoYQBsSYTkNI0UPR20gPMqp0 U3XBUeTG5ktid/Xg7MRJpqqeFspUUaJI8MKiJgQO0voh4KXzGjCV4haz6HGYcRYlEjN0B3dVDiXSSdPH GNVcThC66oPBqxIl42VRdwIDDzCcFyIWn2Kj3MNmRxG4kfFOFaAjR5HNBaPaM8DYUjUmH7QZJuVcLpDK YfBSEaSCEhCZKWMUA6RJBdSbWnWJgpLJ7Se6IwiLN2 DQo+Ma4CNB2vl4NxXWvsExYeFF8ayx2KUUkBVbOnA4ShddA3ZCGkSZIxAs1NAAOiNOHpdSPnQfPoWBYS TaKuX6DlyV65IJARSj7+SZioktZpNyaZNoRqNPQgw2TkSNc8WA6RFLOfWCs4vWAtVVORHEQ7GEAoOcAf wQdnO7qiaTXvlJWoNVZXSMHzcXTmIU4oKT1fNKAyKW I1GkM6TIDDDG3NAUJpQFHzkGMoVXTuOHZXCA0QNMxsXRG2AAFjxwEftOLgBPveRE9JEEKpiuHjTfJlXQ BSDQo+Hd8FZJ7zu8ImUNjsGCLsAT5thc3EMLgDRqGgC0S4oDGiZ0O5ZQrkQp5IIRMwBXKtWgCbKERKKS maSP3TLF8mhgT3ZY7IvJTkQYFmSVPcgHMgRYp9D28j wTBtAXeyRP8IZES+Tori+Fb8ZITPmFGKfKYWaKrBtPHGEQyDxA6RrW8WGz0WfE1FbOM67qOezdbHmNUoc GR6EAC5tSHAyOUZTBB9GqOLinR5pnqCaSeVvYYVLRgVyP34laTDlOBLoSXKlRIVtAf7YIVTsU6RnmwTz lKqzqkUqWHZgUAEPIM9RGHhsmuBhaSIgqLxkKK46iJ lbEN2LIp9WYhItIJ6bwz7HjESzWg5NVSXsTV3QBKYgPQKzAQLsIHW7JVUkWnOsYDflGVBzYYDgYND4OA AbBHItQO9PWfHeYNJvCvq0MhquNGUaSZWjyy5QSYUoJIInXCT2TeJcTWIhLGZmAMrtVKBwVGFwUBO9EI DtRXAkSR8YRlJfHFObHNV0ENJaCXCiDNYqxj2JCVHk FSRdNMd7CKMyZWGaFFLhBUapFSUkOIX6AiQiIIPaXAQgKE5DDgDiSXVxYCi4EEhsNMQaQWSgcl4FNKOr XNQbApU7JmVyCKEfFWJmFFtfRLUxTNUyVPHxHPReAEXfVP5EWzGzPVAbKFWrEDMfARVpGAJdpj3HYUIo OKWnSsY5HYRpIFEtZVWiSAbdTRGlAZU8JJK5NOPiQK WnMG8EXdHiTJOaBGbhMoUyJQIrSTZeot3KHEIhMJXcZCWqJWLnOJRlHAMyWMpjXMAhKZTzIbFsZDXbFF ObOL2FRkWtPZSuAqEbGIOdJHMpDXVawp8ZRJJnWKXtNrY0PeAaCQSiPWWhGUyqJOFhGPXyDATzAFMeBK ZxRX8KVpBrZXMhLmO5DXzaFIYkPUNxct2QBIEwZXFa GcafRUAoONFaIPNeCEpyJZAoOUXlVZR2MBFgAFNfEK6RWcQwLQBeVxXqVKCdAMPbHGQdlu7PVNDzHARg IHExQlLgJTHvCYDmBOfmUJVhSIX8LOHoXLMiFJYzJA5KHpLfFXZfOpYiZeOxSDSyDPPrlp7DUXAdSILc YnQtXyXdHACqHNUeWFhtTMRyBKH5GVZgAKQxRXUiTQ 9BUrPdEBOzLmdjUpfeNJSlPTNdiz2AFUCcBKVhJnSmQaUaQHVuQYWkFLqhBWVhBVA1KFFgJZRaZZIcJJ 9IGtAgRGXiQuq0TYUdWOVzKOUplk9VQYHmQEHrYOF9DUVrLMAeGGOxCEqtMEXxYEK0GlJ7JGFyRFXqWT 5GBfVoJCemEOGWKwq0FKclV3c3URUpRX7VZ5Piy2Se CfKvSWDOOTjlUV8tcvXiNXWmNf0HX0dRLyq3KeSjCSWuCHYbMGjaKLI8XQS2GHo6XLV3IoxqEdJ2HO4k DMajMOPxJFB3BTK8MAUoIbmyQcLzOLg4NwmaELZxSNqjPhFhLN4UFh1AEcQ2DYK8nTDkGi9OVni8FrEN SuEmZI9OBJe= ID Date Data Source [id number] 08/30/2020 04:49:[address] [facility] Name Value Range Interpretation Code Description Data Kiana rce(s) Supporting Document(s) Leukocytes [#/volume] in Blood by Automated count 7.8 10*3/uL 4-10 [facility] Erythrocytes [#/volume] in Blood by Automated count 3.84 10*6/uL 4.6- 6.1 L [facility] Hemoglobin [Mass/volume] in Blood 11.7 g/dL 13.5-18 L [facility] Hematocrit [Volume Fraction] of Blood by Automated count 35.1 % 4 1-53 L [facility] Erythrocyte mean corpuscular volume [Entitic volume] by Auto mated count 91.4 fL 80-96 [facility] Erythrocyte mean corpuscular hemoglobin [Entitic mass] by Automated count 30.4 pg 27-33 [facility] Erythrocyte mean corpuscular hemoglobin concentration [Mass/volume] by Automated count 33.3 g/dL 32.0-36.0 [facility] distribution width [Ratio] by Automated count 14.0 % 11.5-14.5 [facility] Platelets [#/volume] in Blood by Automated count 237 10*3/uL 150-400 [facility] Differential cell count method - Blood [facility] Neutrophils/100 leukocytes in Blood by Automated count 65 % [facility] Lymphocytes/100 leukocytes in Blood by Automated count 18 % [facility] Monocytes/100 leukocytes in Blood by Automated count 5 % [facility] Eosinophils/100 leukocytes in Blood by Automated count 11 % [facility] Basophils/100 leukocytes in Blood by Automated count 1 % [facility] Neutrophils [#/volume] in Blood by Automated count 5.18 10*3/uL 1.8-7 .0 [facility] Lymphocytes [#/volume] in Blood by Automated count 1.36 10*3/uL 1.2-4 .0 [facility] Monocytes [#/volume] in Blood by Automated count 0.39 10*3/uL 0-0.8 [facility] Eosinophils [#/volume] in Blood by Automated count 0.82 10*3/uL 0-0.5 H [facility] Basophils [#/volume] in Blood by Automated count 0.04 10*3/uL 0-0.2 [facility] Nucleated erythrocytes/100 leukocytes [Ratio] in Blood by Automated count 0 /100{WBCs} 0-0 [facility] ID Date Data Source [id number] 08/30/2020 05:06:[address] [facility] Name Value Range Interpretation Code Description Data Kiana rce(s) Supporting Document(s) Bicarbonate [Moles/volume] in Serum 22 mmol/L 22-29 [facility] Chloride [Moles/volume] in Serum or Plasma 105 mmol/L 98-107 [facility] Creatinine [Mass/volume] in Serum or Plasma 1.24 mg/dL 0.70-1.20 H [facility] Glucose [Mass/volume] in Serum or Plasma 100 mg/dL 70-140 [facility] Potassium [Moles/volume] in Serum or Plasma 4.1 mmol/L 3.4-5.1 [facility] Hemolyzed Sodium [Moles/volume] in Serum or Plasma 137 mmol/L 136-145 [facility] Urea nitrogen [Mass/volume] in Serum or Plasma 22 mg/dL 8-23 [facility] Anion gap 3 in Serum or Plasma 10 mmol/L 8-15 [facility] Osmolality of Serum or Plasma by calculation 287 mosm/kg 275-300 [facility] Creatinine/Urea nitrogen [Mass Ratio] in Serum or Plasma 18 [facility] Calcium [Mass/volume] in Serum or Plasma 8.5 mg/dL 8.8-10.2 L [facility] Glomerular filtration rate/1.73 sq M pre dicted among non-blacks [Volume Rate/Area] in Serum or Plasma by Creatinine-based formula (MDRD) 61 mL/min/1.73m2 >60 [facility] Glomerular filtration rate/1.73 sq M pre dicted among blacks [Volume Rate/Area] in Serum or Plasma by Creatinine-based formula (MDRD) 70 mL/min/1.73m2 >60 [facility] ID Date Data Source [id number] 08/30/2020 04:57:[address] [facility] Name Value Range Interpretation Code Description Data Kiana rce(s) Supporting Document(s) Calcium.ionized [Moles/volume] in Arterial blood 1.19 mmol/L 1.13-1.3 2 [facility] ID Date Data Source [id number] 08/29/2020 02:32:[address] [facility] Name Value Range Interpretation Code Description Data Kiana rce(s) Supporting Document(s) EKG [facility] COXOPs5tRfYQEpFtu0FjLlYgKCKiHI9sikl6P0X2iWBsF1KvaXSgs8xzP1VlO9PlTGDlSESFWS4GqNCo jb2 [file] iwsUM2gn3MxHEHHy0fJDRj1PcI0AnZT+FLACO/AX8fT8K+w/fgCqZiEmFHYKTyCkt0w8Poj2o7Q7ERmTvWq 3GV5Lg9TQbkGhzBIkjT0uZ9Sl8pHvwvKZ7jJ8MrVxEC+ZRXtVFHQSYh5ggk7cC56urkLi04TK1FBBGyT IJG+A4/AKMHBik6Q4brC0xdtN+UKptpU4tfznVYAnv uWV1lfxvTyhDQ+wLPO/kY1bBIaua9uiKS/p1vp1x+V6fdAWg+N2fw+/3MB/rqH/6c6cnzarb4i9Vg3La 3oeP52obeogbbWvNSmQofo1bm+M0iUiN2bq1mDxsi/m5m5+7+nasp7f9tCdnw/m5m5+6oJD6ra49eu1V qnm7jddfnlIgiEa3jZA8ld46q91iqzs2f9vsorOacC 08gSM8aa65w08ansa2d5wxafdfqV69jZC9rm27xl0Jtgc3c4nkwzWdco7akIqkO9R4Z/2vq2UDGIo/// y9kxafBXu0KPT3qdtmsjm4TIkoOvnpwcwqYh9MFM1tzpj7UJvV/vHxsMs7UNjL6wL43Q41Sr4ZlxZ/oV /Qc8UIVGnSN5W7ChOXOcORXSmAhP8QblE2xD9pK26T rDpeMEl4Q0PUFk2oIrOZeQRpnnR5ivin7f3wyXB1qGI7eme2pCb3ruU1apegfsIj3Yeg5k5zJW8il5/c vw9Hr3VFosGgea4A87Vb7AnLyDY9ug/4aPaqoT23dm5p5M/h/Hm142q60/F+e77f+Tyb9vBZD5354ECe XYa+Qd+s72H17N93zq2tZ/K+Fr4FoBA0M+ie0HApVV JMU5Yt0rX+Fc3dN7w8Nr4D7ojPHIGa4Ou2RrpY03djj2Hp0Xd9Ff2BV2Vu2X3vX5x1fm7rCCqasZ/Hzh 78lPgf3X4b6r6494hCEdsI0vxg/vqe7DqwB4bRP/YQoeTr5C1uP53itVls6A/cd55+fc+lLUM/xkmjdk MfjLzstRkbYcnRkHV49VCiafoJStpPdIG23tzIy5t5 1fa9VYbLCO+Q63BTWg/h3HuoP8oea8cgcjmrhS/L8q2va/bxa4l1oI6SwbDxdgdVhKG0ofXW0l2Q01b6 M6K+XO2xaMPWIb/3qvKx/0Wyoii775GaoHwUrgyCb2cpmobANjR/7UPjLic6iy2eH2hIlmxwKMUN7Rt0 E/t77u4oW2uRpG/zqg6ez2p76WXHmubpuNs80HvtVY kd+g69QW/Qo/8u9N+F/xaTadj478y5zaZ+GAsI73rs7ql54dVK6ikkRSpZ6ghvZP0WcpIndY1F24/xOU 9UJAXJ1dWz5V/oJ/QT+zZ9te5e9/6osU8iRz3Qvf3T1SdW1cs2JxsEYlwpyX+ctlKvs7xxpoeJ+nHsCf 9K4V8p/HuWz2ScdtH+lcK/KuqYibp6Wh+ww5W7686D v6qyQW/RQ29rpB6QpjIJ+ktua8cbbb8E4E5tw3A0U+rbUN+G+jbUt6G+hEPdiVnxWXgFi1Q+VmTvbY7M uaGrcpjKoyuupLxE5B915zLGw+1xm74lS+jPeKX9+Bvaj7+hvUNvj3+l1A2G7hE62Ex7D/kmmb8QPA2G QfX1v6Ld9eKshsd0qExhWjbLUJZ7/YbfeGVk2k6yKt Md/tUuN+kk1Z13Wi0Cc4e+X+gA0J4rpcd951MfH+iqfc5hdMEqKj5WO1LyvLefCJtJgiQklg9Dc9foGg 8qbZ7+1S5D7/p9p8z09hckz7N+KkGd6R9z/QGgJjlPFZ385SCdQY4Cj5B58Nqzn5BgZRX//Iw8qmURDU qHfkA/oJ/Qn/h3dwXu0hPgv7XH5Qv6Xp3310R/Tf9q f9Ys3YlpLDxD1eS74Ai7K/tX86N3R+g5Mo64ky40/asqC/EFhX8ppY/Jrbh1Da4gjM8V8l+F+Xdh/l3w Ofk3wVT/K7YaWOH3VmqAHB8sIS+xZHx2dvMx3lQWK/QKvULfoG/Qn/fbrvN+22XQG/QOvUM/oB+4/vGf 62I122v+VZWf+m0KnP0f+KsG/ktBh8ncejr9ipn+qo G/auCvmnTc9/roNBi9g11iL1JU6Xy7V/oFPepb/xMUn2WXo4aadnw3kip/qsG/avCvmqK+7pU29T67m0 6cM4FM9Eo0Z/oF/aBdTpv2QJg/yyR63Vkf/jo5UtwkE+7b8L12Bc1YdaRq6Os0Ba1jeuh9yxb+qoG/av CiXpkwAs7rkw1hCf33/os925FrwN54D/5Vg3/V+vke zW6U37G17K45p51hE3LO3F331UB/mqlfz/zYkr/AweKAk7z+z1t8pxvmh5BlErqL7Gv4b5UN3jlS5nL5 6A16g/3Fp59gCpjDOfaEj/vn1vZdjq95/+Hrmp/5qPkF/Zl/h2R2hsGpN/dvv5Go5b5fmoLzI/VR3yob 1RjfF6ej5bksdq0l2S+O/ylns8406Fq0mrQ/lfcK/y dZXVsgzygRYuF357dgy3CqdsgYz9xeDZx/Cehb3B3l5zaehvx/tbJeyV+lTYq/thvTc6IwLskkX/K+d3 33MwR/VdcP/mrmcwZ/gfnja40jn8Qf6/bcw2NRi+ut6aVnuuNYAaBV6NsMck/tFsopyosEMwNqR5erZU ueaM/mvvw9cnu+qoG/rdKq2se+XfeNm86o6JBfRW+y ryTVbnA0kBA/4V+18q+yjPEK/WVTl7WRJaMlZu35QWjiSdr595W/hX/V4F81+FcN/yQQn8LfE7E7U/06 37/9Ot+//VLoFfoGfYO+Q9+hP/Vf20khill1e50FN8Epbfr//lW/jr/XgqLigyeCQl9Ec7/Y0H02PGgs L/3y4Gw94zKm80W92K//3MFfdXHoHfoB/BGh0XAO/c J9D7/R07/sRqkFqvVj0xKRU8Ik6YptG/Sor6K+bzzx7kgowb42s9L7Vq1/xucO/6rDv+nfrfy0oj6+qo O/5fSaVcif1sZhnjb96Gqixs0HC25U7T456zszdlupx7H9aIk/bUGP/gv+qoO/6l2gF+jRf/lXi9g0Ei vLdsrne7+laeLNihbS9Xu2U/4+6rtSf/iNOD1S/Ekc Rdht1Qq85+iLv+dXsoBY21j4aB1O/oinc433SYVWn5NLc5pic13gfix7Kd2f0Ls4mE/4qw7+qtuEfkF/ +LruqK+mbjya8SE3Bt5VK+9929F0Q6Qf3Qi/lb+3C+XzftO/2uXHv+1++Jzuh8/iBlRt0Z/ojz/Zx/En +7igF+fVjfXzrIx6Ci/Te91UDyxwESfkD0gMRrgnmh oXJnXcOHfSI4WR+PtzoW7JhfjV42jseCP1jvff64/qWnlqJ19LT/Cv+jzf+t4ef67i949+sQFsOn5/vv f2RNXfsCu4ZOk2KVd9FHl2BZi3PH+t7dxuSI4pBcoJspkM20GbyKO9LobvNdbVgidg5R5e81P6O+q7Jv FxI6ynI+w6/IZdF/YTvTCj2To2d8+26/Uphv1IfuIu SNbU8tW57Ql5E/oJ/YSe+wDP/Gvwrwz+tCaiB2tw/WtA7Ddj9W16Gp9A7vH91XXn0X9h9V9c6T8tdB9l 8dyS07EE3AHC+sFCzhPRgWI5UF9b3S3Y/JWBvzLwVwb+bwYwFejuH55a4Q/1vG/Gp7mnp3Tl/XWmZ3+d 6fn+hkPv1ewlzE4I5YfCTn8+/uGKgn4BJPjqQ8/Rlv 1ZnxQ2bdj4Udottg8FQDy0Lvbwf9tgS+D6A/eN+b0fkqg0QaT1l81+/sgibo6oE+bN746599u7R1d77E b+Va/diS6j10ur/WKDrvUzXlk/16X2362gO/0w9By8bl6Dz9DgcEi7iQykOPuDMrDb9XfkC/QdeoPeoH foHfoBPeprqK+pugm1MuaaG/454G1yA+gFeoVeoW/Q o75+vn/Nz/e++VkvMz/rZebn+7qg1eXpF0kq/6Z/7vrnQ7qY/8yskB2fHY0sMSwjy2+u9X92Cc/X084H 5yY3D31AW6qQArpN/aIuUp2ngug86+MvWXaol5Thw+rSid89beWWMhDw8/Bgetv8IieRuBqG6ROqigGr JAiJb73yFWIZWU0fpRp0AESqUz2L+CbLhfNiyoF61l TEU+7n+SfGq/Svriqf+b0vV3mLs3ycAV3e/cf91ZzVkaAu3Kr+na8eW8nBk39yq/TtlUM8O5Yxxdz37Z 9Vh43E30K62UQ/gU1cOR37bL/dDxpZzHQz8Kx4941z+688/asqC/FSeJRv2U/baf7IF8+Ov+LU6Lq7Hg sOrakzuV9uBde3vH/4/Xm/Dv/K4V85/CuHf+Xgrxz8 tDQ20US+9FjynXaXCzRWJczeZOk2g08xr+oW2NS1JS6zY//K4V85/CuHf+AIH9TcDih4S2/97WFbPeOV 2rarIXf1Vs+4J4LmBZaRitR/oJ/QT+tW6FjbkO0p0Q1EPuWS1DL63Yf5t28UenWS+jbUt6G+DqCamU6G fbE+7G6QW28+VZXX4/94+Vf3+LyjC6J2cX+8n/VQ7w L92R/r/onK5b7fl8Im/pNpH8b6G1l51uBX3685icS1wm1yjQZ2wOock/JB2wrat8GwbP3tD8d3+Ino/8 dyJ8gqow6w7L0jJdrOqTJc6Lc0Bw7XziM/oZ/QL+vXynl1uzbG+LrZlp7ot7Q5llrBtfk81yp/yh31dd UDAY3LfW19yuLXBW7//qT7mY/la9doihUoB1k+9YH3 O/B+f2Wm6Cc1MWjIC5QL72K57ZZjIEcEU+AweAi43O1N0eRBgh5vbtOqqIT8qtflM6sklsV0DvqohN+w AlrM41FCvTMeX78VTyO9F/3n0DzgG2N4PU/nIz4Cqoq2fm81/9h4B7mIfLBv1Pq4We2an8I7lNI0Fjya Fsar9K+igAhp5Psg/Ru+vevLWchtO2lh0C73+dGP63 zvj+pDDvCX6K/475iRilAofsV1zFGdH/G6A7FenS1DQQrcgIbnZ/QD+onrTzvPtvCc6+tIu0fg4XD3nP 25SxYXtlxopx7Rgc25zVA+laQ+8odD9Ts9Vs9WscV/oZ/QL+jP9+COq49f2GdqUnXj99/1t0mp3Ac6Zl oCZmixJDhJ2sI97X37Gv8GtdG/oV/BXv2amNLpnEDP G7RK7Jqn+KvRUN+G+qZ/lfZseL/kT929f/ujVX2kgiHM42QU06+Mxdx3MdNwvj84jrgMF28hkf2Bcsik iPNQI/cjmij7CD/fv/m34V/VNXt+/6Y+cg3b3ca4rl2Uo/bz/Tu6QW/QO/QOPerbB/QT+dp2EjTR/yrt uIjgYWflou6T9pynie0vmyRMagKz+JKYjfv67SgRd0 7/PMygN/z+jM/Qql1bZDEFS3LC8Lh2K0aTr51bz+YyGqpt9Qg0Sw2D00E/2caRFL1/8+/h4g459EV0/N 5x/YHrD+ow8HC7Bm3Gq1gBuHuzF7RqilaP068sgM+NgflooP+Qb10beL5560Q3Vi+q2j/4m7E3GLFS6H i/A+15oD3n/gqhSonhn9OTiwn/7G9jHpIqaIHurFeF bxZ+4Lj9q+QZnxu1Vf9hWx2I0p/v/RPm3m9M3D61cphijPm9w0/ZtLyv3/qZ1/SAIsb7s8Ye6EmF5877 FwM7i9c9Od0X/eIkecele3jDLdep2CIG+BgXBmoGa6T32Lu/qsao8K/EbjUc2mnP/+ca2qvq5A2bT1p/ KttG+hm4RN4Na/668F5I0aXFp72ngelvlS68IS/Tnu d1QX++9+v3crrdfsMu6H20Dg3mmwgRCxvOFabKCkyAGrcKUvdEUxaQUmgEK+c1cd+B1or4fqU0nasS8A etaU8dtex5fac+aoK/twSeOwvcAq1afg+a4K8m+KsJ/xnCl2yw8Zcxd8N+vivf0jvju7Q+iftdcHd4dv b1vLn5GCKq2S50Ea9Gc3I55V72nJ6YM1/+JwF5c7KP 9Md/kmhzhExxnJphmC4qF/0uaVboeEA7Ef/0fR64uh6fP/vbJ/a3T+mrs7xzFGxVC5Xu1I/oF/SHv5rg r2a/oBfoBXqFXqE/3wuzn/FqJn+7h4Cg0Jl1Y+/QD+cU2BR8Rf3PVlX743358UnxVpN1FafhY9j9uFq7 /saEfzWtQ4/2bGjPhvZsaM/squq3a5zK04w/tcNvTD i0srIHj4d//Qu9O3qZ/xxsM7eXZq794LF/NcFfTfBXE/iQSU80zL5RuU1TO/tjpw/oB/QT+sk6gq7jH4 vj7H+e90HnwBclTAzO/uy/hzYgU6prP+5i0Tn2EP/4luCYxHS7xiiG4QY3Gx3M/vCTcx5+cs4L+rPePb H/pk1vS2JSd3hgjav0saw+aoK/mth/NbH/amL/1ZyY gjiob5y3kCE+xfrgnGjPE+85sS8eeKlU0rvRjsw/C/HyxZ7UqKziq3Gdjojc1Vppjjm6HwwdGj8H+u/C /Mechanic Sound Technician/64z/y74Vwv+5joDbsSszKtel7+14F+ac9PalValWTtC0xEm6X/oJ/Tn/O4uKy2aLw2jHx2zMo5t Ia3mDw77Ghr+1YJ/teBfLfhXC/7Vgn+14F8t+FcL/t SCr3CC1WNwOm36/gNZYh2dr4tu/Srer+A4ug8rnhzC+DiR12AA06JX86DTO/WYkNRc3Qk0C/oBPeqL/V cL+68W9l+wfpv76Zxnur36hhaoeegimdwljvibhaswucpsqzufTrxRdeoHI/EZFuIzLMRnWDg/uNrE9R [file] jmtgueipeodhuwniuftjmswcrjmpfepdGdfRrmEoneed4JVrhWO7lHtcEnNiMpQGHZWvY7V/3uqsHi3T OLgaP6lTaGEQoMFECpRqqiSaoWjKqE0dH8iGaSJdaZ kx6auQSRRqXOuYVIUITXK4QyA7boJ/hehdO3kHtVD1mgGOLzuKiIF5amEAOiqHxAW5xcWCQrxDgUH+0c siNpsGD48y8YGLlPXXAmMntaebHlh8zBPjnBnMLKDGWj/UvSAn8RuInpEnM26+4IPIIDKJTCKLCHykys qdXENEWlIpc5K+lorin/A+cbKx/UGpVmSCjOeULGpx54 SiJce1fKx2DHPACYpPMztAVMxMRet8Ynt1QeReuyuL+clC9z0UPBIiuELY+B3RpFfCH+oiEujlY+lv2g qwudIXtYPUETrE7kvsyAAvbvGNGqF/EhmY/sONJ600l+lqLJMm3EzLNMb+FGICbEUaN4BxP5oY8IVuiA EjkIDHH7FAVB7cVv30Lj53KkqmhxqmN+zC1MyB6Rez 6W+pnybxqRxr/Q0KlZt6UBcVtdyQaobah61tsFi522KBlPr/Vv025k7D0GxyM6aY+/f/uu12ka4400/J 7z6h3a1W3W9UBTN6n/5Re//ta6Lf01+80/vH3+6OqosuHsO8fs+emXv/hQ5rX44wSsaK7h49frW/vm2+ 9/Nds11992tKblXcBuH8JMuP1/fPfNb9+++82Hj59/ gNa20uetxrlB01+0sdsYy3+/e//hy4+//pt29cbl9/tvv/q66Ytc4w7/+/j+y3fff/3AQ8kzw3O13S09 makzLfRAsFIB74t95w96q3/78ddfv/3Llx9//zeeY634/dMJt3800sA78414/emJ831/e/v+0Ijlw8dn 3Vefv3/74tuvf/PVu//r3Ye/moq7vm3g+9W3//L2/b yncub8U+/e/vn93/qlbPt9+CQG589+8vO3D9/47qomJwh448f1L/x03aPYm292+5fPv3/33jgfgbu5/d eff/Tj1ueJ6/zTu/dffvv+1tJyrrv65/Hd+2+/elno/ufXu2o5+S//cg8wnVq8t7+6vfkwK300Jt6pJ/ 6Nn93+wB0bmcm3t2/86m/25Q5H64/+7pgfzeu5gJ6+ dcUw2+cR8o78v6toc5kN+QjDC2r119/46jofbl1xm351/3qT//i9Q21oKPw7C/vrd5+///j2/z6xM190 +/Ix2rc4nrFirr8y5tlt/3k1Ulr03m//+KreXg/59i7ekul+9+J9q79kzfwlwy/0xZ//9G9/+Msff/z9 23//329f//digital field service technician//4/fvzL//hij567+/DDv//1D2+/+e F4S1zs8Z0k//7qn342/mXPDW3v4yUHm/7s1ZF/8/V/fNwcG831id/+/H667vXdaEP66R4+S3hoI72arF +//k6OkdfjJ13/wZ6eWD8UZeyM+uErdndfo+G5urz9+peAp/H1nnc68tiuonrNoD4uXAg4yi/+5S9hsc /eXib+9vsvf/l6cx9++1eNG70N3pzH5u7E/+L+Qxj4 2J1/Hif3T9/5kAlPaycmFbpbu5OIHty6X/7pr//49pcf/vrp1V/Om5dVGcr/9Ee+qNAeTKb/9Oob/M37 tz/86a8//uX//eE//sblt1E/vXw++/Mu+0+vvrHXaPL2+//n9ex/+HUhtgs3DGY6k5qnNY8whe/+/J8/ /d2zx79QmK//+ctv/+RuFo4EoojK9wNQO9/vWoA/0/ 7JtY1g++lrebDf/By6e7Z13U/9+J//tQM9b+21asoZj9/55L3pwUzVgozcs/pbZJr6YLa2a8361piVN+ gv/uOH3/37T/5223noH/445519rft8/+O//9e/fQz4/s9//sLgo4e238/2LKw1il//8rBPGwB4gYCG7g off/zd//dIM812bi/+6AzCqnVmZ89yMF/yt//511eb +/9de6tbo7q119l+5Tf/9cbhUUWf+/uqq95F8PcOQPVdlxL/+Sf3d6G+jT2b/PB///gmb3/+gjm4DEcS cxRe5o2bl+Ti8fljpj5/e5P+Xd5p2Ee7+/23HKlHvnhR0/mff/CMj3226/xlrySh5H4akg/+/wK5H4v1 MxLhAFU7vrUymIhgquJeRuiTAPsjLTBpPpw2ZB3KvO DxRANjB7O9UKRsey2pROSqFFUnxYZhOgUoYALXNI8OvAVsFG9YZWc6HMPhXLNoKpIiWWHvleT9AMEyYZ IfAZXpX4RprvUlvNQoKVZaJf6+PI4tz5SsHkGyBFIgVci3QI4NoXUlRC2ScSNnjX0ursEmH656slHiFP YdDubdo4ElMAjbXWVNOL5UXRX9WFL7GPLiEt0+ZW5k b9PzCpCdDNSpKeq7NS7YrUHda4WsLO8IG5MyVMDxIXCOSPT1g2KoJOWkflenlbdpX8ItOPR6vJ3oMNU6 EFEbADfeRILmHFTtMiA4XiHoPTpgSVYlSLFyOGIxWLHdMCv9bPKnME1BS4SlAIRaGYDNETSdveIiDa4t ASKLB0rTDgIOT24oHGHQUBQHZLUvJAG4IDCpCN8HjC QuHKK5HIgGVEQJTDkTNMiwZeFcz7R4QHEqC1KoLRRfhuReFZVIORsmGjjuCE5miApllzrtL8WpuVXzYN KGUWJeUBOjSCXhKHWoU6Osm0V1K6QmPHuINGCCMWgNWPpvKxH7j82jalHVCHLrGCWnPA3+UZ9pp8WjLv 5WWGXuQB2vhph7ZU2BqLGsKX4MEKkpbpFvC7eqfjBk HrWxEOBDLH2jY4KbkJ89QXE+MuMsKQ4ybob0efTdNbPlROKdHMWrMDAcQLwvZOFqAPVlJCVrBWD4GYP5 EQEkBbDyKPLcItf6DkgdAHOhDJXhzeEJDQNmVLW1VtJiHDNhFWBaQKSlOIcwELThTIW9JjboZAKhEPUv YQ3iFvNdZWNaYCYvEXLvHbM1TmSnAtMAMRSyJUEfUU PsMwBuZEPhVTLpGDiuOEByDOMuQSs7WXDxXRSwFC1gGfJmEUEpRXUyBWRqNLMaTYLfvbLPJJZlSOXlUZ G3CEDwEJFwGTTpMHwoYTKqZHCcMWT3NDOlDVKxUF7nCoOqFJOdTWN9IySoTEIuJNEynyGGNWAuGAIeSR E0CQNiIQJgDSKjZZzpEKOvDEUuZwI2PNIvVKQkCK7v UxWxGOQdQFZ3IOJzPCEeIASlqaRVSEHcJTTfERl0MvRbCEGtSQHaWCmvYESmZGZrOShmULPgORByLB4f YoPgUJYtPWVhAJCcVJTnXXDytrIEHQOdEFKlGEX1BeHdOWEzRLXbRLddARQvPRQkNCI0CDScYRMsJM2g CjAwMDAwNjcxMDEgMDAwMDAgbiAKMDAwMDAwMTYwOS HiUVTvVGJyJLxfDUYcYVZpGeS0ECMrLKAiGV7sMpDlBJPhFJY0IOYqCDXkPUSilnHBDEZsYACkACZtHU Z3JIIlOCOeVCg0gxXfySNlIvy6Ph5YjCubKIT2Tp4MosTkCMOaWEGBHq6Fy818BVJtFVRJLix+PgpzdG XqyKcbPFCBEyt1RLFRHVVNU3D= ID Date Data Source [id number] 08/29/2020 02:29:[address] [facility] Name Value Range Interpretation Code Description Data Kiana e(s) Supporting Document(s) [facility] HXRDKa3nEgDNEqHtg2TtKlXdFCKwZB4zapn0N2F9uVFhM3AbaLWsn3vjP1IuN7IhTDGmXYNIWC0WxUXp jb2 [file] n9nkRC54Nc+toll bridge attendant+ykGxBv8zda6M6jxS6REwznGcDuXwpf0B6kvG5IDYqtTtAoSwzqbVPRqfq5R1a2L3I [file] U9u4DMJdEJdoPB7bjrGtRYCtXexcMu9yzVM8KMSqWwmGGm9Ll8QsihL4suSlQjE2PSS2TfAvJV0N ID Date Data Source [id number] 08/29/2020 11:32:15 AM EST [facility] Name Value Range Interpretation Code Description Data Kiana e(s) Supporting Document(s) History and Physical [facility] AZVQIo0mXuYYOpVs03/UQMyaSQNvr9FmDYmfJXv6YKewQTUdS2AuSNL3zS9aTBE1CSvJXsFxGyHoIAAt lbm [file] ICAgICAgICAgICAgICAgICAgICAgICAgICAgICAgICAgICAgICAgICAgICAgICAgICAgICAgICAgICAg ICAgICAgICAgICAgICAgICAgDQogICAgICAgICAgIC AgICAgICAgICAgICAgICAgICAgICAgICAgICAgICAgICAgICAgICAgICAgICAgICAgICAgICAgICAgIC AgICAgICAgICAgICAgICAgICAgICAgICAgICAgDQogICAgICAgICAgICAgICAgICAgICAgICAgICAgIC AgICAgICAgICAgICAgICAgICAgICAgICAgICAgICAg ICAgICAgICAgICAgICAgICAgICAgICAgICAgICAgICAgICAgICAgDQogICAgICAgICAgICAgICAgICAg ICAgICAgICAgICAgICAgICAgICAgICAgICAgICAgICAgICAgICAgICAgICAgICAgICAgICAgICAgICAg ICAgICAgICAgICAgICAgICAgICAgDQogICAgICAgIC AgICAgICAgICAgICAgICAgICAgICAgICAgICAgICAgICAgICAgICAgICAgICAgICAgICAgICAgICAgIC AgICAgICAgICAgICAgICAgICAgICAgICAgICAgICAgDQogICAgICAgICAgICAgICAgICAgICAgICAgIC AgICAgICAgICAgICAgICAgICAgICAgICAgICAgICAg ICAgICAgICAgICAgICAgICAgICAgICAgICAgICAgICAgICAgICAgICAgDQogICAgICAgICAgICAgICAg ICAgICAgICAgICAgICAgICAgICAgICAgICAgICAgICAgICAgICAgICAgICAgICAgICAgICAgICAgICAg ICAgICAgICAgICAgICAgICAgICAgICAgDQogICAgIC AgICAgICAgICAgICAgICAgICAgICAgICAgICAgICAgICAgICAgICAgICAgICAgICAgICAgICAgICAgIC AgICAgICAgICAgICAgICAgICAgICAgICAgICAgICAgICAgDQogICAgICAgICAgICAgICAgICAgICAgIC AgICAgICAgICAgICAgICAgICAgICAgICAgICAgICAg ICAgICAgICAgICAgICAgICAgICAgICAgICAgICAgICAgICAgICAgICAgICAgDQogICAgICAgICAgICAg ICAgICAgICAgICAgICAgICAgICAgICAgICAgICAgICAgICAgICAgICAgICAgICAgICAgICAgICAgICAg CCDjJMLoHYUfESYoKJNyYKJlBHJhSMQoZCCyBRa6O6 huZWSdYJFoRK8wVIf1Dj7+IGhLFvAqHVH7laTktZ1URR2fl5VxQSjcDEMuz0XfEJn4OQ8NSWNkGAkqWB 2TSTawlg6TFFErSXDqtDQLp5diEtJnDPI6ZMZrLkpgGO6ZDYOgA6xxydFvAFUeSLHWNSqcVDXRAIjpIS HHVZMrBVUgPpZfOjOoXAXjDV8KIAJwS920ofCeDA5G Yw3RCvLyVZ2tyj7ELkPcHNUoTebDQgt2YLpkPU6UwSSitTYsYFBqKVUBUsSvB4rdt7VpDuBjKLCWDZwu QO3Op4RokVDiSYl+Tn4RDH9jt9CvYKctZTEcHR5btm2YEKeBBmSdJ9TqhVikLEplEQSzrPXLnSNjkHYs kIspXJZAzSZuCOQBMiODHSA3YGCdHaYnAnBcLlPiHZ t8PMWlHD6lPLswNI1VFWT9EVerIUZqFTQeV1qDRlZaTRKbMLHhkSogTW4RCsYyU9DupeYboNGcKEIkYV INCj4+ZAzciiZeZofLOpPyHJOyj4SkWJb0US7CVGJbOFdaUR8HTMRmtO1zMOncJW5BYoOoUXFjBDXQPm XbJ58ivVXiOUz7O1SmQcDmVMSmZeitRFBvTDmmEuDv ZXMgWyBdDQogID4+ID4+FQtfMX3YKAqvsvUqEOYjDc1JGIOeGEVxKB5nVJYrOTKuD8V4qDeoPWKUKtNb R2iyauqjSS5oWYOeW837wGrczfKqDLOzABJvBg5QJVPtMLR0WWQywZWmUuppZFTQIVgiXG6CnUMlOKH0 wR6wUFezRRCdDKNrY3pDOrPjgXblYI97cGzplnOhzF BdDQo+Wn3WRO0ql4YiHLc8hsTrRHvvJNIuVBozCXVaFHPdSUZdKQX1JVH6SIKKEkKqMMDwYKLuAQywNE KjALVqcn0NNLFbENZdBmB1BGYhMRJyINAlMNsaYSVpKZQnBJW2VFRjWNWfZK1URwFzPTQnNEBxUWmaIN VpXXAwnt6PPKMwBSOaXqEpRDPzZGYyIFOeRWfyMUPm BWClLLVnUGJkLHLnIC4MXdNnCAElWGG7ClPqPKYfKWVkyn2XLLLzIIEgOaR6MsGrKVMlJJTtSYhaCDOa LCBbXlCpNUYvFEZfIJ0JPwSvBQWjXLL1JtMeWVMtKJBjez1RNIAlSGGwIEOyPEUzIIHaBKTaZOpsABSe BAN8MdD2HJFiDWQgSB1JPxAnBBUlSQZ3MhOsOOSaPH Rvvz4PYHCaPFLjLWi3JPYaUNWaTNIuGZptRSRbUVD8MnWfQQDnSXUxVP0JBrUjLBUgSRQ3JRikFRNxSJ Hjgd2WTBJwBKRbUlV8ZNEjETTzRFErHOjqYYYqZNI8JRXlZFOxRZLzKL6CSpYkLYRkWIehLQSnTAKxPN Xukv7DMVRwOCGeLRQjZVIuMZDzNENeZMmiBWSrKHV6 DkrgRXQjOPDsOM7PQhRqZVBmEEm2KDjaODOzSIRimy9QOWHaRQOoCFo0SUWzRDXuLLRgMHraLLEjHWJi NBP6XYAhZYJxZX3FRtWxNLGgMlT5LgRzEKMqQOJepy0FVNDyZUEoPSU5LhVtEHDaPJBoBUcnEQOcDBZi ATNmRFVtUQMgBV1VRhXqQUAwSoTnPzcxHWInAFIuww 4FJAQvDCBjRtS6SXVjQTBaZOVeIHtxFRHaNIMoYMS6HCSpXCCaCX0UPzKrLDOtKcWrTLwqTOIaCDZlld 9VVRCoADKnJEL4ZbDrNRYbWCHcDOh3oiYacUIhGHt9OA8YT0EhpmGzKqDZBd8Ag796SQZkGHXuXx6NT2 quHj8uZSBiMREAKf0IBCw4WUX0YPG6CTjpI0C1EQNq NBQ5XpM9Gfh6FxEbGTA5HcY+WXy0Iwe6YIWeZVAqELB0YfG7VSAjGTe9TWecRBYhSqbvQi4uUXPHXa1+ GGbycOLcgIfjKZRZUxH0GUV4WNhgZVRBYh7O ID Date Data Source [id number] 08/29/2020 05:58:01 AM [facility] Name Value Range Interpretation Code Description Data Kiana rce(s) Supporting Document(s) Leukocytes [#/volume] in Blood by Automated count 11.1 10*3/uL 4-10 H [facility] Erythrocytes [#/volume] in Blood by Automated count 3.53 10*6/uL 4.6- 6.1 L [facility] Hemoglobin [Mass/volume] in Blood 10.7 g/dL 13.5-18 L [facility] Hematocrit [Volume Fraction] of Blood by Automated count 32.2 % 4 1-53 L [facility] Erythrocyte mean corpuscular volume [Entitic volume] by Auto mated count 91.4 fL 80-96 [facility] Erythrocyte mean corpuscular hemoglobin [Entitic mass] by Automated count 30.3 pg 27-33 [facility] Erythrocyte mean corpuscular hemoglobin concentration [Mass/volume] by Automated count 33.1 g/dL 32.0-36.0 [facility] Erythrocyte distribution width [Ratio] by Automated count 14.2 % 11.5-14.5 [facility] Platelets [#/volume] in Blood by Automated count 239 10*3/uL 150-400 [facility] Differential cell count method - Blood [facility] Neutrophils/100 leukocytes in Blood by Automated count 82 % [facility] Lymphocytes/100 leukocytes in Blood by Automated count 12 % [facility] Monocytes/100 leukocytes in Blood by Automated count 6 % [facility] Eosinophils/100 leukocytes in Blood by Automated count 0 % [facility] Basophils/100 leukocytes in Blood by Automated count 0 % [facility] Neutrophils [#/volume] in Blood by Automated count 9.04 10*3/uL 1.8-7 .0 H [facility] Lymphocytes [#/volume] in Blood by Automated count 1.30 10*3/uL 1.2-4 .0 [facility] Monocytes [#/volume] in Blood by Automated count 0.70 10*3/uL 0-0.8 [facility] Eosinophils [#/volume] in Blood by Automated count 0.02 10*3/uL 0-0.5 [facility] Basophils [#/volume] in Blood by Automated count 0.01 10*3/uL 0-0.2 [facility] Nucleated erythrocytes/100 leukocytes [Ratio] in Blood by Automated count 0 /100{WBCs} 0-0 [facility] ID Date Data Source [id number] 08/29/2020 06:01:20 AM [facility] Value Range Interpretation Code Description Data Kiana rce(s) Supporting Document(s) Platelet aggregation ADP induced [Units/volume] in Platelet rich plasma 282 PRU <208 H [facility] (NOTE)<208 PRU Therapeutic range fo r P2Y12 [id number] PRU Low response to P2Y12 inhibitors ID Date Data Source [id number] 08/29/2020 06:06:05 AM [facility] Value Range Interpretation Code Description Data Kiana rce(s) Supporting Document(s) Prothrombin time (PT) 14.3 s 12.5-14.9 [facility] INR in Platelet poor plasma by Coagulation assay 1.10 [facility] Routine intensity oral anticoagulation I NR is typically 2.0-3.0. Target INR must be clinically individualized. ID Date Data Source [id number] 08/29/2020 06:38:51 AM [facility] Value Range Interpretation Code Description Data Kiana rce(s) Supporting Document(s) Troponin T.cardiac [Mass/volume] in Serum or Plasma 0.22 ng/mL <0.01 [facility] No Significant Change since last result called ID Date Data Source [id number] 08/29/2020 06:38:51 AM [facility] Value Range Interpretation Code Description Data Kiana rce(s) Supporting Document(s) Bicarbonate [Moles/volume] in Serum 22 mmol/L 22-29 [facility] Chloride [Moles/volume] in Serum or Plasma 105 mmol/L 98-107 [facility] Creatinine [Mass/volume] in Serum or Plasma 1.14 mg/dL 0.70-1.20 [facility] Glucose [Mass/volume] in Serum or Plasma 111 mg/dL 70-140 [facility] Potassium [Moles/volume] in Serum or Plasma 4.3 mmol/L 3.4-5.1 [facility] Sodium [Moles/volume] in Serum or Plasma 137 mmol/L 136-145 [facility] Urea nitrogen [Mass/volume] in Serum or Plasma 22 mg/dL 8-23 [facility] Anion gap 3 in Serum or Plasma 10 mmol/L 8-15 [facility] Osmolality of Serum or Plasma by calculation 288 mosm/kg 275-300 [facility] Creatinine/Urea nitrogen [Mass Ratio] in Serum or Plasma 19 [facility] Calcium [Mass/volume] in Serum or Plasma 8.4 mg/dL 8.8-10.2 L [facility] Glomerular filtration rate/1.73 sq M pre dicted among non-blacks [Volume Rate/Area] in Serum or Plasma by Creatinine-based formula (MDRD) 67 mL/min/1.73m2 >60 [facility] Glomerular filtration rate/1.73 sq M pre dicted among blacks [Volume Rate/Area] in Serum or Plasma by Creatinine-based formula (MDRD) 78 mL/min/1.73m2 >60 [facility] ID Date Data Source [id number] 08/29/2020 12:43:[address] [facility] Name Value Range Interpretation Code Description Data Kiana rce(s) Supporting Document(s) Heparin unfractionated [Units/volume] in Platelet poor plasma by Chromogenic method 0.43 U/ml [facility] ID Date Data Source [id number] 08/29/2020 01:11:[address] [facility] Name Value Range Interpretation Code Description Data Kiana rce(s) Supporting Document(s) Troponin T.cardiac [Mass/volume] in Serum or Plasma 0.14 ng/mL <0.01 [facility] Results called to and read back by COLETTE PHILIP RN ON 8G AT [id number] [id number] BY [id number] ID Date Data Source [id number] 08/28/2020 06:23:[address] [facility] XR CHEST FRONTAL ONLY [id number] RESULTI nterpreted by:Colby Taylor, MDPROCEDURE INFORMATION: Exam: [...] rce(s) Supporting Document(s) ID Date Data Source [id number] 08/28/2020 06:40:[address] [facility] Name Value Range Interpretation Code Description Data Kiana rce(s) Supporting Document(s) Leukocytes [#/volume] in Blood by Automated count 8.3 10*3/uL 4-10 [facility] Erythrocytes [#/volume] in Blood by Automated count 3.91 10*6/uL 4.6- 6.1 L [facility] Hemoglobin [Mass/volume] in Blood 12.0 g/dL 13.5-18 L [facility] Hematocrit [Volume Fraction] of Blood by Automated count 35.5 % 4 1-53 L [facility] Erythrocyte mean corpuscular volume [Entitic volume] by Auto mated count 90.9 fL 80-96 [facility] Erythrocyte mean corpuscular hemoglobin [Entitic mass] by Automated count 30.7 pg 27-33 [facility] Erythrocyte mean corpuscular hemoglobin concentration [Mass/volume] by Automated count 33.7 g/dL 32.0-36.0 [facility] Erythrocyte distribution width [Ratio] by Automated count 14.0 % 11.5-14.5 [facility] Platelets [#/volume] in Blood by Automated count 220 10*3/uL 150-400 [facility] ID Date Data Source [id number] 08/28/2020 07:03:[address] [facility] Name Value Range Interpretation Code Description Data Kiana rce(s) Supporting Document(s) Bicarbonate [Moles/volume] in Serum 21 mmol/L 22-29 L [facility] Chloride [Moles/volume] in Serum or Plasma 104 mmol/L 98-107 [facility] Creatinine [Mass/volume] in Serum or Plasma 1.15 mg/dL 0.70-1.20 [facility] Glucose [Mass/volume] in Serum or Plasma 140 mg/dL 70-140 [facility] Potassium [Moles/volume] in Serum or Plasma 4.0 mmol/L 3.4-5.1 [facility] Sodium [Moles/volume] in Serum or Plasma 137 mmol/L 136-145 [facility] Urea nitrogen [Mass/volume] in Serum or Plasma 21 mg/dL 8-23 [facility] Anion gap 3 in Serum or Plasma 12 mmol/L 8-15 [facility] Osmolality of Serum or Plasma by calculation 289 mosm/kg 275-300 [facility] Creatinine/Urea nitrogen [Mass Ratio] in Serum or Plasma 18 [facility] Calcium [Mass/volume] in Serum or Plasma 8.9 mg/dL 8.8-10.2 [facility] Glomerular filtration rate/1.73 sq M pre dicted among non-blacks [Volume Rate/Area] in Serum or Plasma by Creatinine-based formula (MDRD) 66 mL/min/1.73m2 >60 [facility] Glomerular filtration rate/1.73 sq M pre dicted among blacks [Volume Rate/Area] in Serum or Plasma by Creatinine-based formula (MDRD) 77 mL/min/1.73m2 >60 [facility] ID Date Data Source [id number] 08/28/2020 07:03:47 PM [facility] Value Range Interpretation Code Description Data Kiana rce(s) Supporting Document(s) Magnesium [Mass/volume] in Serum or Plasma 1.8 mg/dL 1.6-2.4 [facility] ID Date Data Source [id number] 08/28/2020 07:03:47 PM [facility] Value Range Interpretation Code Description Data Kiana rce(s) Supporting Document(s) Phosphate [Mass/volume] in Serum or Plasma 2.9 mg/dL 2.5-4.5 [facility] ID Date Data Source [id number] 08/28/2020 07:10:57 PM [facility] Value Range Interpretation Code Description Data Kiana rce(s) Supporting Document(s) Heparin unfractionated [Units/volume] in Platelet poor plasma by Chromogenic method 0.31 U/ml [facility] ID Date Data Source [id number] 08/28/2020 07:10:[address] [facility] Name Value Range Interpretation Code Description Data Kiana rce(s) Supporting Document(s) Prothrombin time (PT) 14.2 s 12.5-14.9 [facility] INR in Platelet poor plasma by Coagulation assay 1.09 [facility] Routine intensity oral anticoagulation I NR is typically 2.0-3.0. Target INR must be clinically individualized. ID Date Data Source [id number] 08/28/2020 08:13:[address] [facility] Name Value Range Interpretation Code Description Data Kiana rce(s) Supporting Document(s) Cholesterol [Mass/volume] in Serum or Plasma 206 mg/dL <200 [facility] Triglyceride [Mass/volume] in Serum or Plasma 45 mg/dL <150 [facility] Cholesterol in HDL [Mass/volume] in Serum or Plasma 51 mg/dL >40 [facility] Cholesterol in LDL [Mass/volume] in Serum or Plasma by calcu lation 146 mg/dL <100 [facility] Cholesterol in VLDL [Mass/volume] in Serum or Plasma by calc ulation 9 mg/dl 16-42 L [facility] Cholesterol non HDL [Mass/volume] in Serum or Plasma 155 mg/dL <130 [facility] ID Date Data Source [id number] 08/28/2020 07:24:[address] [facility] Name Value Range Interpretation Code Description Data Kiana rce(s) Supporting Document(s) Hepatitis C virus Ab [Presence] in Serum or Plasma by Immuno assay Non Reactive [facility] No serological evidence of active infect ion. If recent exposure is suspected, test for HCV RNA. ID Date Data Source [id number] 05/16/2020 12:35:00 PM [facility] Name Value Range Interpretation Code Description Data Kiana rce(s) Supporting Document(s) Surgical pathology study [facility] FINAL DIAGNOSIS Colon polyps, polypectomy: Tubular adenoma, fragments. Separate fragments of hyperplastic polyp. 06/09/20201254 CLINICAL DIAGNOSIS Hx of colon polyps 06/09/20201254 GROSS DIAGNOSIS Received in formalin labeled "colon polyps" is fragments of tissue measuring 0.6 x 0.4 x 0.3 cm. All in one. -OA 06/09/2020 - 1255 Signed DORA JUNIOR MD 06/09/2020 1254 Procedure Social History Code Duration Value Status Description Data Source(s ) Alcohol intake 09/17/2020 12:00:00 AM EST Not Currently completed [facility] Smoking 09/17/2020 12:00:00 AM EST Former smoker completed Former smoker [facility] Alcohol intake 08/28/2020 12:00:00 AM EST Ex-drinker (finding) comp leted Ex- drinker (finding) [facility] Tobacco use and exposure 08/28/2020 12:00:00 AM EST Never used co mpleted Never used [facility] Smoking 08/28/2020 12:00:00 AM EST Former smoker completed Former smoker [facility] Vital Signs ID Date Data Source UNK Name Value Range Interpretation Code Description Data Source(s) Oxygen saturation in Arterial blood by Pulse oximetry 97 % 97 % [facility] Body mass index (BMI) [Ratio] 27.35 kg/m2 27.35 kg/m2 [facility] Body weight 96.616 kg 96.616 kg [facility] Body height 188 cm 188 cm [facility] Heart rate 84 /min 84 /min [facility] Diastolic blood pressure 76 mm[Hg] 76 mm[Hg] [facility] Systolic blood pressure 132 mm[Hg] 132 mm[Hg] [facility] Body weight 91.287 kg 91.287 kg [facility] ([facility], ) Body mass index (BMI) [Ratio] 25.2 kg/m2 25.2 k g/m2 [facility] ([facility], ) Body weight 201.25 [lb_av] 201.25 [lb_av] [facility] ([facility], ) Body height 75 [in_i] 75 [in_i] [facility] ([facility], ) 6'3" Diastolic blood pressure 85 mm[Hg] 85 mm[Hg] [facility] ([facility], ) Systolic blood pressure 131 mm[Hg] 131 mm[Hg] [facility] Body weight 100.246 kg 100.246 kg [facility] ([facility]) Body mass index (BMI) [Ratio] 27.6 kg/m2 27.6 k g/m2 [facility] ([facility]) Body weight 221.00 [lb_av] 221.00 [lb_av] [facility] Body height 75 [in_i] 75 [in_i] [facility] ([facility]) 6'3" Diastolic blood pressure 60 mm[Hg] 60 mm[Hg] [facility] ([facility]) Systolic blood pressure 130 mm[Hg] 130 mm[Hg] M [facility] ([facility]) Diastolic blood pressure 95 mm[Hg] 95 mm[Hg] eCW1 ([facility]) Systolic blood pressure 147 mm[Hg] 147 mm[Hg] e CW1 ([facility]) Body temperature 98.4 [degF] 98.4 [degF] eCW1 ( [facility]) Respiratory rate 18 /min 18 /min eCW1 ([facility]) Heart rate 89 /min 89 /min W1 ([facility]) Body mass index (BMI) [Ratio] 30.16 kg/m2 30.16 kg/m2 [facility] ([facility]) Body height 72 [in_us] 72 [in_us] eCW1 ([facility]) Body weight Measured 222.4 [lb_av] 222.4 [lb_av ] eCW1 ([facility]) Body weight 99.792 kg 99.792 kg [facility] ([facility]) Body mass index (BMI) [Ratio] 27.1 kg/m2 27.1 k g/m2 [facility] ([facility]) Body weight 220.00 [lb_av] 220.00 [lb_av] [facility] Body height 75.5 [in_i] 75.5 [in_i] [facility] ([facility], ) 6'3.50" ID Date Data Source [id number] 09/06/2020 07:34:[address] [facility] Name Value Range Interpretation Code Description Data Source(s) WEIGHT RECORDED 214.07 lb 214.07 lb [facility] WEIGHT RECORDED 208 lb 208 lb [facility] Body height Measured 72 in 72 in [facility] TRANSFER FROM [facility] Patient Treatment Plan of Care Planned Activity Planned Date Details Description Data Source (s) Prednisone 10 MG Oral Tablet 09/13/2020 12:00:00 AM [facility] 24 HR metoprolol succinate 200 MG Extended Release Ora l Tablet [Toprol] 08/30/2020 12:00:00 AM [facility] Levetiracetam 250 MG Oral Tablet 08/30/2020 12:00:00 AM [facility] 24 HR Isosorbide Mononitrate 30 MG Extended Release Or al Tablet 08/30/2020 12:00:00 AM [facility] Hydrochlorothiazide 12.5 MG Oral Tablet 08/30/2020 12:00:00 AM [facility] Hydralazine Hydrochloride 25 MG Oral Tablet 08/30/2020 12:00:00 AM [facility] atorvastatin 20 MG Oral Tablet 08/30/2020 12:00:00 AM [facility] Levetiracetam 250 MG Oral Tablet 08/30/2020 12:00:00 AM [facility] 24 HR metoprolol succinate 200 MG Extended Release Ora l Tablet 08/30/2020 12:00:00 AM [facility] 24 HR Isosorbide Mononitrate 30 MG Extended Release Or al Tablet 08/30/2020 12:00:00 AM [facility] Hydrochlorothiazide 12.5 MG Oral Tablet 08/30/2020 12:00:00 AM [facility] Hydralazine Hydrochloride 25 MG Oral Tablet 08/30/2020 12:00:00 AM [facility] atorvastatin 20 MG Oral Tablet 08/30/2020 12:00:00 AM [facility] perflutren lipid microspheres (DEFINITY) injectable desai spension 9.78 mg 08/29/2020 08:33:[address] [facility] albuterol (PROVENTIL HFA) inhaler 2 puff 08/28/2020 06:03:37 PM [facility] sildenafil 100 MG Oral Tablet 07/12/2020 12:00:00 AM EDT [facility] POLYETHYLENE GLYCOL 3350 142 MG/ML Oral Solution 07/12/2020 12:00:0 0 AM EDT [facility] Omeprazole 20 MG Delayed Release Oral Capsule 07/12/2020 12:00:00 A M EDT [facility] Metronidazole 500 MG Oral Tablet 06/19/2020 12:00:00 AM EDT [facility] Levofloxacin 500 MG Oral Tablet 06/19/2020 12:00:00 AM EDT [facility] Diphenhydramine Hydrochloride 50 MG Oral Capsule [Jenna phen] 06/14/2020 12:00:00 AM EDT [facility] Aspirin 81 MG Delayed Release Oral Tablet 06/14/2020 12:00:00 AM ED T [facility] Allopurinol 300 MG Oral Tablet 06/14/2020 12:00:00 AM EDT [facility] 24 HR Levetiracetam 500 MG Extended Release Oral Tablet [facility] levETIRAcetam (KEPPRA PO) [facility] sildenafil 100 MG Oral Tablet [facility] latanoprost 0.05 MG/ML Ophthalmic Solution [facility] Hydrochlorothiazide 25 MG Oral Tablet [facility] Loratadine 10 MG Oral Tablet [facility] Metoprolol Tartrate 50 MG Oral Tablet [facility] Clonidine Hydrochloride 0.1 MG Oral Tablet [facility]
--- NOTE | 2020-10-30 03:42 | REPVR ---
PROCEDURE INFORMATION: Exam: XR Chest, 1 View Exam date and time: 10/30/2020 3:03 AM Age: 64 years old Clinical indication: Cough and dyspnea; Additional info: Dyspnea/cough TECHNIQUE: Imaging protocol: XR of the chest Views: 1 view. COMPARISON: CR Chest, 2 view PA, Lat 10/09/2020 9:20 AM FINDINGS: Lungs: Mild scarring or atelectasis in the right lung base. No new airspace infiltrates. Pleural space: Trace right pleural effusion. Heart/Mediastinum: Unremarkable. No cardiomegaly. Vasculature: Right MediPort catheter projects in the lower SVC. Diaphragm: Stable elevation of the right hemidiaphragm. Bones/joints: Unremarkable. IMPRESSION: 1. Trace right pleural effusion. 2. Pulmonary scarring or atelectasis in the right lung base. Electronically signed by: Everton Patel On 10/30/2020 03:42:45 AM
[2020-10-30 03:47] LABS: RSV AMPLIFICATION NEGATIVE (NEGATIVE)
[2020-10-30] MEDS ORDERED: PRED20TA PO (04:49)
[2020-10-30] MEDS ORDERED: POTASSIUM CHLORIDE 10 MEQ SR TABLET PO ONE (05:00)
[2020-10-30 05:26] VITALS: BP 140/91
--- NOTE | 2020-10-30 10:25 | ECGEPIP ---
[facility] - ED Test Date: 2020-10-30 Pat Name: MEENA KELLY Department: Room: - Gender: Male [employer] Specialist: REJI : 1955 Requested By: TANISHA Blunt Order Number: [id number] Reading MD: Anshu Alanis Measurements Intervals Wheeler Rate: 101 P: 74 MN: 208 QRS: 3 QRSD: 110 T: 47 QT: 374 QTc: 487 Interpretive Statements SINUS TACHYCARDIA Prolonged QTc interval Nonspecific ST-T wave abnormalities with subtle changes from tracing done 09-12-20 Electronically Signed on 10-30-2020 10:24:43 EST by Anshu Alanis
== END 2020-10-30 05:35 | disposition home or self-care (01) ==
LOC: M ED 01:41
DX: J44.1 Chronic obstructive pulmonary disease with (acute) exacerbation (principal); C34.01 Malignant neoplasm of right main bronchus; R00.0 Tachycardia, unspecified; J90 Pleural effusion, not elsewhere classified; F17.200 Nicotine dependence, unspecified, uncomplicated; Z88.1 Allergy status to other antibiotic agents; Z88.2 Allergy status to sulfonamides; Z88.6 Allergy status to analgesic agent; Z88.8 Allergy status to other drugs, medicaments and biological substances; Z79.899 Other long term (current) drug therapy; Z79.51 Long term (current) use of inhaled steroids; Z79.82 Long term (current) use of aspirin

== ENCOUNTER → 2020-12-20 | Outpatient (CLI) | payer OTHER ==
[~2020-12-20] MED LIST changes: +ASPI-569 PO; -ASPI81TAEC PO; +GASTROGRAFIN SOLUTION 30ML (Q9963) As Ordered ONE; +HYDR-3490 PO; -HYDR25TAB PO; +ISOS1TAB35 PO; -ISOS30TA4 PO; -MAG400TA PO; +MAGN400T35 PO; -PEG1POW PO; -PEGPOW PO; +POLY17PO18 PO; +POLY510P14 PO; +POTA10CA32 PO
--- NOTE | 2020-12-20 16:45 | REP ---
INDICATION: LUNG CA COMPARISON: 09/08/2020 TECHNIQUE: Axial noncontrast images from the thoracic inlet to the upper abdomen with coronal and sagittal reformations. This CT examination was performed using the following dose reduction techniques: Automated exposure control, adjustment of mA and/or kv according to the patient's size, and use of iterative reconstruction technique. FINDINGS: Postsurgical changes involving the right hemithorax again noted and relatively stable. Bilateral aerated lung french are relatively clear and without acute consolidation, new suspicious nodule or mass lesion. Small 4 mm stable noncalcified nodule in the right lung (image 57) unchanged. No pleural effusion. No pneumothorax. Tracheobronchial tree is relatively normal and patent. No axillary, hilar, or mediastinal adenopathy is appreciated. Thoracic aorta, pulmonary vasculature, and heart/pericardium are stable. No cardiomegaly or pericardial effusion. Idsyay-[id number]-[id number] again identified with tip in the right atrium. Musculoskeletal structures demonstrate degenerative changes without acute osseous abnormality. IMPRESSION: 1. Postsurgical changes involving the right hemithorax relatively similar to prior examination. No definite acute changes to suggest recurrence or metastatic disease identified. 2. No acute mediastinal or pleuroparenchymal process. <Electronically signed by Mirza Sommer > 12/20/20 [id number]
--- NOTE | 2020-12-20 16:51 | REP ---
INDICATION: LUNG CA COMPARISON: 10/07/2020 TECHNIQUE: Axial noncontrast images from the lung bases to the pubic symphysis with coronal and sagittal reformations. Oral contrast administered prior to imaging. This CT examination was performed using the following dose reduction techniques: Automated exposure control, adjustment of mA and/or kv according to the patient's size, and use of iterative reconstruction technique. FINDINGS: Liver, spleen, pancreas, gallbladder, bilateral adrenal glands and kidneys are essentially normal/stable. 1.5 cm and 9 mm partially exophytic round lesions along the lateral aspect of the left kidney are unchanged and compatible with benign cysts. The enteric system is without obstruction or acute inflammatory process. Diverticulosis noted without acute diverticulitis. Pelvis demonstrates normal bladder and age-appropriate prostate/seminal vesicles. No ascites. No free air. No adenopathy. Abdominal aorta without aneurysm. Skeletal structures demonstrate degenerative changes without acute osseous abnormality. IMPRESSION: No acute abdominopelvic pathology appreciated. Stable left renal cysts. Scattered diverticulosis without acute diverticulitis. <Electronically signed by Mirza Sommer > 12/20/20 [id number]
== END ==
LOC: M RAD 13:56
PROVIDERS: ATTEND Internal Medicine Medical Oncology
DX: C34.90 Malignant neoplasm of unspecified part of unspecified bronchus or lung (principal)
CPT/HCPCS: 71250; 74176; Q9963

== ENCOUNTER → 2021-03-06 | Outpatient (CLI) | payer OTHER ==
[~2021-03-06] MED LIST changes: +ADV500INH INH; +COVI100V IM; -GASTROGRAFIN SOLUTION 30ML (Q9963) As Ordered ONE; +LIDO1CRE42 TOP; -LIDO2.5C15 TOP; +POTA1TAB23 PO; +SPIR1CAP INH
--- NOTE | 2021-03-06 09:52 | REP ---
INDICATION: ABN FINDING OF LUNG COMPARISON: 12/20/2020, 09/08/2020 TECHNIQUE: Axial noncontrast images from the thoracic inlet to the upper abdomen with coronal and sagittal reformations. This CT examination was performed using the following dose reduction techniques: Automated exposure control, adjustment of mA and/or kv according to the patient's size, and use of iterative reconstruction technique. FINDINGS: Postsurgical/post therapeutic pleuroparenchymal changes involving the right hemithorax appear relatively similar to prior examinations and without new acute area of consolidation, nodule or mass. No acute effusion. Left hemithorax is well aerated and demonstrates minimal chronic changes as well. Mediastinum demonstrates stable atherosclerotic changes to the thoracic aorta and coronary arteries without aortic aneurysm or cardiomegaly. No pericardial effusion. Fuonda-O-Hbrb identified with tip in the SVC/right atrium. Limited upper abdomen demonstrates normal bilateral adrenal glands. Surrounding musculoskeletal structures demonstrate degenerative changes. IMPRESSION: Stable chronic changes. No evidence for acute process, metastasis or recurrence appreciated. <Electronically signed by Mirza Sommer > 03/06/21 0949
== END ==
LOC: M RAD 09:06
PROVIDERS: ATTEND Physician Assistant
DX: R91.8 Other nonspecific abnormal finding of lung field (principal)

== ENCOUNTER → 2021-05-15 | Outpatient (CLI) | payer OTHER ==
[~2021-05-15] MED LIST changes: +BENA25CA4 PO
--- NOTE | 2021-05-15 11:21 | REP ---
INDICATION: PROTEINURIA, NEPHROPATHY. COMPARISON: CT abdomen without 12/20/2020, CT abdomen with 10/07/2020 TECHNIQUE: Standard renal sonography performed. FINDINGS: The right kidney measures 9 x 5.3 x 5.1 cm in the left is 9.1 x 5.5 x 5.3 cm cortical echogenicity for both kidneys is less than that of the adjacent liver. There is some sinus lipomatosis however. There is no hydronephrosis or hydroureter and no solid mass or stone. No perinephric fluid. In the lower pole on the right is a 9 mm simple cyst and laterally in the interpolar region on the left is 1.6 x 1.5 x 2 cm exophytic cyst. Both of these are as seen on the previous CT and showing only 1-2 mm increase in size for the exophytic left cyst. Limited views of the bladder show no stone, debris or mass. IMPRESSION: 1. Mild atrophy with overall kidney size 9 cm right and 9.1 cm left. But cortical thickness and echogenicity normal. No hydronephrosis, stone or mass. 2. A 9 mm lower pole cyst medially on the right and exophytic 2 x 1.6 cm cyst in the interpolar region on the left laterally. <Electronically signed by Elder Santos > 05/15/21 [id number]
== END ==
LOC: M RAD 10:39
PROVIDERS: ATTEND Internal Medicine
DX: R80.9 Proteinuria, unspecified (principal); N28.9 Disorder of kidney and ureter, unspecified

== ENCOUNTER → 2021-08-19 | Outpatient (CLI) | payer OTHER ==
[~2021-08-19] MED LIST changes: +ALLO300T2; +GASTROGRAFIN SOLUTION 30ML (Q9963) As Ordered ONE; -KLOR20TA42 PO; -MAGN400T3 PO; +MAGN400T33 PO; +POTA-141 PO; +[UNRECOGNIZED DRUG - CODE] UR; +[UNRECOGNIZED DRUG - OTHER]
--- NOTE | 2021-08-19 15:28 | REP ---
INDICATION: LUNG CA F/U. COMPARISON: 03/06/2021, 12/20/2020. TECHNIQUE: Noncontrast scanning through the chest with coronal and sagittal reconstructions provided. FINDINGS: Study again shows some postoperative changes in the right hemithorax from lobectomy with surgical clips at the inferior aspect of the right hilum. There is compensatory hyperinflation of the left lung and all of this is stable there is some chronic fibrotic or atelectatic change adjacent to the hilum and the diaphragm but stable. A 6.5 mm pleural based nodule is seen on image 57 in the left upper lobe and appeared slightly smaller on the study 6 months ago and has more confluent density but no increase in size compared to the study 6 months ago. Some curvilinear fibrotic changes noted posteriorly in the right lower lung zone some some cylindrical bronchiectatic change noted. There is no effusion or acute infiltrate. No new mass. Heart not enlarged. The aorta is calcifications at the arch without aneurysm. The main right and left pulmonary arteries are prominent in the mediastinum but taper rapidly suggesting pulmonary artery hypertension, likely on the basis of COPD. No pathologic sized mediastinal or hilar adenopathy. New indwelling right jugular port catheter is seen tip in the SVC. No hiatal hernia. Upper abdomen shows no hepatosplenomegaly, calcified gallstone or focal lesion. Adrenal glands, pancreas, stomach and visualized bowel loops intact. Bone windows show some degenerative changes in the spine without compression deformity or destructive lesions. Sternum, manubrium, medial clavicles, visualized portions of scapulae and humeral heads as well as the ribs without acute finding. There are old posttraumatic changes of posterolateral ribs on the left but not on the right where lobectomy was performed. IMPRESSION: 1. Postoperative changes of lobectomy stable with no new right lung findings, effusion or nodule. Volume loss in the right hemithorax stable. 2. 6 mm nodule pleural based nodule on the left which is unchanged in size but has more solid character on today's study compared to 6 months ago. This may be followed. 3. No other significant or new finding. The heart, mediastinal contents and upper abdomen all stable. No acute bony finding. <Electronically signed by Elder Santos > 08/19/21 [id number]
--- NOTE | 2021-08-19 15:42 | REP ---
INDICATION: LUNG CA F/U. COMPARISON: CT without 12/20/2020, CT with 10/07/2020; renal ultrasound 05/15/2020 TECHNIQUE: Oral Gastrografin mixture 10 mL in 290 mL flavum water for 2 doses per our bowel contrast protocol. Coronal and sagittal reconstructions were provided. FINDINGS: CT abdomen: No hiatal hernia. Stomach grossly unremarkable. There is no hepatomegaly, focal hepatic lesion or biliary dilatation. No adjacent ascites. Gallbladder shows no calcified stone or mass. There is no splenomegaly or focal splenic lesion. Adrenal glands are normal. Pancreas unremarkable. There is some calcifications in the uncinate portion of the pancreas suggesting prior pancreatitis in these are unchanged in appearance common duct in the polina hepatis and pancreatic head shows no definite stone there are no peripancreatic nodes or inflammatory changes. Abdominal aorta without aneurysm and has a few calcifications. Diverticulosis seen and scattered areas of the colon without signs of diverticulitis in the abdomen proper oral contrast in small bowel loops which are not dilated. This reaches the terminal ileum and cecum. No acute finding there and no inflammatory changes about the cecum or adenopathy. No periaortic, mesenteric or other retroperitoneal pathologic sized lymphadenopathy. Kidney size unchanged. Exophytic cyst peripherally off the lower pole of the left kidney unchanged about 16 mm. The lower pole cyst on the right seen by ultrasound is medial and not exophytic. No hydronephrosis or stone. No solid mass. Lung window review of all CT slices shows no perforation or free air. Bone windows show degenerative changes in the thoracic and lumbar regions without destructive lesion or compression fractures. Visualized lower ribs with old posttraumatic changes on the left but not the right where prior lobectomy was performed CT pelvis: The sacrum, SI joints, pelvis and hips show some degenerative change but no destructive lesion or fracture bladder well distended. There is no wall thickening, mass or stone. The ureters are without dilatation or stone. There is no ventral or inguinal hernia nor pathologic sized inguinal adenopathy. The small bowel loops in the pelvis were unremarkable and prostate unchanged. The distal left colon shows a few diverticula without diverticulitis. There is a redundant sigmoid that shows a few diverticula but also no diverticulitis. Rectum unremarkable. No pelvic lymphadenopathy IMPRESSION: 1. Scattered diverticulosis without diverticulitis, stricture or mass. 2. Solid organs in the upper abdomen show only small intrarenal cyst on the right and an exophytic cyst of the left kidney. 3. No abdominal or pelvic adenopathy ascites abscess or free air. 4. No intra-abdominal or pelvic mass or metastatic disease. Bones intact. Stable exam. No other significant finding <Electronically signed by Elder Santos > 08/19/21 [id number]
== END ==
LOC: M RAD 11:13
PROVIDERS: ATTEND Internal Medicine Medical Oncology
DX: Z08 Encounter for follow-up examination after completed treatment for malignant neoplasm (principal); R91.1 Solitary pulmonary nodule; Z85.118 Personal history of other malignant neoplasm of bronchus and lung; Z90.2 Acquired absence of lung [part of]
CPT/HCPCS: 71250; 74176; Q9963

== ENCOUNTER → 2021-08-25 | Outpatient (REF) | payer OTHER ==
[~2021-08-25] MED LIST changes: -GASTROGRAFIN SOLUTION 30ML (Q9963) As Ordered ONE
[2021-08-25 16:01] LABS: HEMATOCRIT 39.4 % (42.0-52.0); HEMOGLOBIN 13.3 g/dl (13.5-17.5); MEAN CORPUSCULAR HEMOGLOBIN 31.2 pg (27.0-33.0); MEAN CORPUSCULAR HGB CONC 33.8 g/dl (32.0-36.5); MEAN CORPUSCULAR VOLUME 92.5 fl (80.0-96.0); PLATELET COUNT, AUTOMATED 309 10^3/uL (150-450); RED BLOOD COUNT 4.26 10^6/uL (4.30-6.10); WHITE BLOOD COUNT 8.7 10^3/uL (4.0-10.0)
[2021-08-25 16:14] LABS: APPEARANCE, URINE CLEAR (CLEAR); BACTERIA, URINE AUTO NEGATIVE (NEGATIVE); BILIRUBIN, URINE AUTO NEGATIVE (NEGATIVE); BLOOD, URINE BLOOD NEGATIVE (NEGATIVE); COLOR, URINE YELLOW (YELLOW); GLUCOSE, URINE (UA) AUTO NEGATIVE (NEGATIVE); KETONE, URINE AUTO NEGATIVE (NEGATIVE); LEUKOCYTE ESTERASE, URINE AUTO NEGATIVE (NEGATIVE); NITRITE, URINE AUTO NEGATIVE (NEGATIVE); PROTEIN, URINE AUTO NEGATIVE (NEGATIVE); RBC, URINE AUTO 0 /HPF (0-3); SPECIFIC GRAVITY URINE AUTO 1.012 (1.002-1.035); SQUAMOUS EPITHELIAL CELL UR AU 0 /HPF (0-6); UROBILINOGEN, URINE AUTO 0.2 mg/dL (0.0-2.0); WBC, URINE AUTO 0 /HPF (0-3)
[2021-08-25 16:32] LABS: MALB URINE SIEMENS < 5.0 MG/L; MAU/CREAT RATIO 5.1 MCG/MG (0.0-30.0)
[2021-08-25 17:20] LABS: ALT/SGPT 38 U/L (12-78); BILIRUBIN,TOTAL 0.5 MG/DL (0.2-1.0); BLOOD UREA NITROGEN 24 MG/DL (7-18); CALCIUM LEVEL 9.3 MG/DL (8.8-10.2); CARBON DIOXIDE LEVEL 27 MEQ/L (21-32); CHLORIDE LEVEL 104 MEQ/L (98-107); CREATININE FOR GFR 1.42 MG/DL (0.70-1.30); GLOMERULAR FILTRATION RATE > 60.0 (>49); GLUCOSE, FASTING 107 MG/DL (70-100); POTASSIUM SERUM 3.4 MEQ/L (3.5-5.1); SODIUM LEVEL 140 MEQ/L (136-145); TOTAL PROTEIN 7.3 GM/DL (6.4-8.2)
== END ==
LOC: M LAB REF 15:36
PROVIDERS: ATTEND Internal Medicine
DX: N18.31 Chronic kidney disease, stage 3a (principal); Z79.899 Other long term (current) drug therapy

== ENCOUNTER → 2021-09-03 | Outpatient (CLI) | payer MEDICARE, OTHER | LOC: M LABSMTC 09:39 | PROVIDERS: ATTEND Anesthesiology | DX: Z01.818 Encounter for other preprocedural examination (principal); Z11.52 Encounter for screening for COVID-19 ==

== ENCOUNTER 2021-09-08 08:29 | Day surgery (SDC) | payer MEDICARE, OTHER ==
[~2021-09-08] VITALS: Ht 190.5 cm; Wt 116.1 kg
[~2021-09-08 08:29] MED LIST changes: +CYCLOPENTOLATE 1% OPHTH SOLN 2 ML BTL OD SCH; +DUOVISC (0.50ML VISCOAT/0.85ML PROVISC) OPHTH KIT As Ordered ONE; +LIDOCAINE 1% SDV 5ML VIAL As Ordered ONE; +LR 1,000 ML IV SCH; +MIDAZOLAM INJ 2MG/2ML VIAL (J2250 PER 1MG) As Ordered ONE; +PHENYLEPHRINE 2.5% OPHTH SOL 2ML OD SCH; +TETRACAINE 0.5% OPHTH SOLN 4ML OD SCH; +fentaNYL 100 MCG/2 ML INJECTION (J3010) As Ordered ONE
--- OUTSIDE RECORDS SUMMARY | 2021-09-08 09:14 | CCD ---
Author Author [facility] Organization [facility] Address Unknown Phone Unavailable Care Team Providers Care Aircraft Systems Technician Name Role Phone Mineral Shellie Aries CARPET CLEANER Unavailable Unavailable Eunice, Shellie Aries CARPET CLEANER Unavailable Unavailable Eunice, Shellie Aries CARPET CLEANER Unavailable Unavailable Mineral, Shellie Aries CARPET CLEANER Unavailable Unavailable Eunice, Shellie Aries CARPET CLEANER Unavailable Unavailable Mineral, Shellie Aries CARPET CLEANER Unavailable Unavailable Eunice, Shellie Aries CARPET CLEANER Unavailable Unavailable Mineral, Shellie Aries CARPET CLEANER Unavailable Unavailable Mineral, Shellie Aries CARPET CLEANER Unavailable Unavailable Eunice, Shellie Aries CARPET CLEANER Unavailable Unavailable Eunice, Shellie Aries CARPET CLEANER Unavailable Unavailable Mineral, Shellie Aries CARPET CLEANER Unavailable Unavailable Eunice, Shellie Aries CARPET CLEANER Unavailable Unavailable Mineral, Shellie Aries CARPET CLEANER Unavailable Unavailable Shazia HOLLIDAY MD Unavailable Unavailable [...] Unavailable Unavailable Shazia HOLLIDAY MD Unavailable Unavailable CHARLAMBShazia MD Unavailable Unavailable CHARLAMBShazia MD Unavailable Unavailable CHARLAMBShazia MD Unavailable Unavailable CHARLAMBShazia MD Unavailable Unavailable CHARLAMBShazia MD Unavailable Unavailable CHARLAMBShazia MD Unavailable Unavailable CHARLAMBShazia MD Unavailable Unavailable CHARLAMBShazia MD Unavailable Unavailable CHARLAMBShazia MD Unavailable Unavailable Shazia HOLLIDAY MD Unavailable Unavailable Shazia HOLLIDAY MD Unavailable Unavailable ZULLYLAMShazia Castle MD Unavailable Unavailable ZULLYLAMBShazia MD Unavailable Unavailable CHARLAMBShazia MD Unavailable Unavailable CHARLAMBShazia MD Unavailable Unavailable CHARLAMShazia Castle MD Unavailable Unavailable CHARLAMShazia Castle MD Unavailable Unavailable Shazia HOLLIDAY MD Unavailable Unavailable ZULLYLAMShazia Castle MD Unavailable Unavailable ZULLYLAMShazia Castle MD Unavailable Unavailable CHARLAMShazia Castle MD Unavailable Unavailable CHARLAMShazia Castle MD Unavailable Unavailable Shazia HOLLIDAY MD Unavailable Unavailable Shazia HOLLIDAY MD Unavailable Unavailable Shazia HOLLIDAY MD Unavailable Unavailable ZULLYLAMShazia Castle MD Unavailable Unavailable ZULLYLAMShazia Castle MD Unavailable Unavailable CHARLAMShazia Castle MD Unavailable Unavailable Shazia HOLLIDAY MD Unavailable Unavailable Shazia HOLLIDAY MD Unavailable Unavailable Shazia HOLLIDAY MD Unavailable Unavailable Shazia HOLLIDAY MD Unavailable Unavailable Shazia HOLLIDAY MD Unavailable Unavailable Shazia HOLLIDAY MD Unavailable Unavailable Shazia HOLLIDAY MD Unavailable Unavailable Shazia HOLLIDAY MD Unavailable Unavailable Shazia HOLLIDAY MD Unavailable Unavailable Shazia HOLLIDAY MD Unavailable Unavailable ZULLYLAMShazia Castle MD Unavailable Unavailable ZULLYLAMShazia Castle MD Unavailable Unavailable ZULLYLAMShazia Castle MD Unavailable Unavailable CHARLAMShazia Castle MD Unavailable Unavailable Shazia HOLLIDAY MD Unavailable Unavailable Shazia HOLLIDAY MD Unavailable Unavailable Shazia HOLLIDAY MD Unavailable Unavailable Shazia HOLLIDAY MD Unavailable Unavailable CHARLAMShazia Castle MD Unavailable Unavailable CHARLAMShazia Castle MD Unavailable Unavailable CHARLAMShazia Castle MD Unavailable Unavailable ZULLYLAMShazia Castle MD Unavailable Unavailable Shazia HOLLIDAY MD Unavailable Unavailable Shazia HOLLIDAY MD Unavailable Unavailable Shazia HOLLIDAY MD Unavailable Unavailable Shazia HOLLIDAY MD Unavailable Unavailable CHARLAMShazia Castle MD Unavailable Unavailable CHARLAMShazia Castle MD Unavailable Unavailable CHARLAMB, Shazia GONSALES MD Unavailable Unavailable CHARLAMB, Shazia GONSALES MD Unavailable Unavailable Rechlin, P Anshu DO Unavailable Unavailable Rechlin, P Anshu DO Unavailable Unavailable Rechlin, P Anshu DO Unavailable Unavailable Rechlin, P Anshu DO Unavailable Unavailable Rechlin, P Anshu DO Unavailable Unavailable Rechlin, P Anshu DO Unavailable Unavailable Rechlin, P Anshu DO Unavailable Unavailable Rechlin, P Anshu DO Unavailable Unavailable Rechlin, P Anshu DO Unavailable Unavailable Rechlin, P Anshu DO Unavailable Unavailable Rechlin, P Anshu DO Unavailable Unavailable Rechlin, P Anshu DO Unavailable Unavailable Rechlin, P Anshu DO Unavailable Unavailable Rechlin, P Anshu DO Unavailable Unavailable Rechlin, P Anshu DO Unavailable Unavailable Rechlin, P Anshu DO Unavailable Unavailable Rechlin, P Anshu DO Unavailable Unavailable Rechlin, P Anshu DO Unavailable Unavailable Rechlin, P Anshu DO Unavailable Unavailable Rechlin, P Anshu DO Unavailable Unavailable Rechlin, P Anshu DO Unavailable Unavailable Rechlin, P Anshu DO Unavailable Unavailable Rechlin, P Anshu DO Unavailable Unavailable Rechlin, P Anshu DO Unavailable Unavailable Rechlin, P Anshu DO Unavailable Unavailable Rechlin, P Anshu DO Unavailable Unavailable Rechlin, P Anshu DO Unavailable Unavailable Rechlin, P Anshu DO Unavailable Unavailable Rechlin, P Anshu DO Unavailable Unavailable Rechlin, P Anshu DO Unavailable Unavailable Rechlin, P Anshu DO Unavailable Unavailable Rechlin, P Anshu DO Unavailable Unavailable Rechlin, P Anshu DO Unavailable Unavailable Rechlin, P Anshu DO Unavailable Unavailable Rechlin, P Anshu DO Unavailable Unavailable Rechlin, P Anshu DO Unavailable Unavailable Rechlin, P Anshu DO Unavailable Unavailable Rechlin, P Anshu DO Unavailable Unavailable Rechlin, P Anshu DO Unavailable Unavailable Rechlin, P Anshu DO Unavailable Unavailable Rechlin, P Anshu DO Unavailable Unavailable Rechlin, P Anshu DO Unavailable Unavailable Rechlin, P Anshu DO Unavailable Unavailable Rechlin, P Anshu DO Unavailable Unavailable Rechlin, P Anshu DO Unavailable Unavailable Rechlin, P Asnhu DO Unavailable Unavailable Rechlin, P Anshu DO Unavailable Unavailable Rechlin, P Anshu DO Unavailable Unavailable Rechlin, P Anshu DO Unavailable Unavailable Rechlin, P Anshu DO Unavailable Unavailable Rechlin, P Anshu DO Unavailable Unavailable ABIGAIL, DEBANIK Unavailable Unavailable ABIGAIL, [...] DEBANIK Unavailable Unavailable ABIGAIL, DEBANIK Unavailable Unavailable Clermont, V ORTEGA PA-C Unavailable Unavailable Clermont, V ORTEGA PA-C Unavailable Unavailable Clermont, V ORTEGA PA-C Unavailable Unavailable Clermont, V ORTEGA PA-C Unavailable Unavailable Romain, V ORTEGA PA-C Unavailable Unavailable Clermont, V ORTEGA PA-C Unavailable Unavailable Clermont, V ORTEGA PA-C Unavailable Unavailable Clermont, V ORTEGA PA-C Unavailable Unavailable Romain, V ORTEGA PA-C Unavailable Unavailable Clermont, V ORTEGA PA-C Unavailable Unavailable Romain, V ORTEGA PA-C Unavailable Unavailable Clermont, V ORTEGA PA-C Unavailable Unavailable Romain, V ORTEGA PA-C Unavailable Unavailable Romain, V ORTEGA PA-C Unavailable Unavailable LARSEN, M NORM PA Unavailable Unavailable LARSEN, M NORM PA Unavailable Unavailable LARSEN, M NORM PA Unavailable Unavailable LARSEN, M NORM PA Unavailable Unavailable LARSEN, M NORM PA Unavailable Unavailable LARSEN, M NORM PA Unavailable Unavailable LARSEN, M NORM PA Unavailable Unavailable LARSEN, M NORM PA Unavailable Unavailable LARSEN, M NORM PA Unavailable Unavailable LARSEN, M NORM PA Unavailable Unavailable LARSEN, M NORM PA Unavailable Unavailable LARSEN, M NORM PA Unavailable Unavailable LARSEN, M NORM PA Unavailable Unavailable LARSEN, M NORM PA Unavailable Unavailable LARSEN, M NORM PA Unavailable Unavailable LARSEN, M NORM PA Unavailable Unavailable LARSEN, M NORM PA Unavailable Unavailable LARSEN, M NORM PA Unavailable Unavailable LARSEN, M NORM PA Unavailable Unavailable LARSEN, M NORM PA Unavailable Unavailable LARSEN, M NORM PA Unavailable Unavailable LARSEN, M NORM PA Unavailable Unavailable LARSEN, M NORM PA Unavailable Unavailable LARSEN, M NORM PA Unavailable Unavailable LARSEN, M NORM PA Unavailable Unavailable LARSEN, M NORM PA Unavailable Unavailable LARSEN, M NORM PA Unavailable Unavailable LARSEN, M NORM PA Unavailable Unavailable LARSEN, M NORM PA Unavailable Unavailable LARSEN, M NORM PA Unavailable Unavailable LARSEN, M NORM PA Unavailable Unavailable LARSEN, M NORM PA Unavailable Unavailable LARSEN, M NORM PA Unavailable Unavailable LARSEN, M NORM PA Unavailable Unavailable LARSEN, M NORM PA Unavailable Unavailable Campos Garciatech Unavailable Unavailable Erika Garcia MD Unavailable Unavailable [...] Unavailable Unavailable Erika Garcia MD Unavailable Unavailable Campos Garciatech Unavailable Unavailable Campos Garciatech Unavailable Unavailable Alexander Garciajtech Unavailable Unavailable Alexander Garciajtech Unavailable Unavailable Erika Garcia MD Unavailable Unavailable Erika Garcia MD Unavailable Unavailable Erika Gacria MD Unavailable Unavailable SleAlexander rodriguezjtech Unavailable Unavailable SleAlexander rodriguezjtech Unavailable Unavailable SleAlexander rodriguezjtech Unavailable Unavailable Alexander Garciajtech Unavailable Unavailable Campos Garciatech Unavailable Unavailable Alexander Garciajtech MD Unavailable Unavailable Slezka, Vojtech MD Unavailable Unavailable Slezka, Vojtech MD Unavailable Unavailable Slezka, Vojtech MD Unavailable Unavailable Slezka, Vojtech MD Unavailable Unavailable Slezka, Vojtech MD Unavailable Unavailable Slezka, Vojtech MD Unavailable Unavailable Slezka, Vojtech MD Unavailable Unavailable Slezka, Vojtech MD Unavailable Unavailable Slezka, Vojtech MD Unavailable Unavailable Slezka, Vojtech MD Unavailable Unavailable Slezka, Vojtech MD Unavailable Unavailable Slezka, Vojtech MD Unavailable Unavailable Slezka, Vojtech MD Unavailable Unavailable Slezka, Vojtech MD Unavailable Unavailable Slezka, Vojtech MD Unavailable Unavailable Slezka, Vojtech MD Unavailable Unavailable Slezka, Vojtech MD Unavailable Unavailable Slezka, Vojtech MD Unavailable Unavailable Slezka, Vojtech MD Unavailable Unavailable Slezka, Vojtech MD Unavailable Unavailable Slezka, Vojtech MD Unavailable Unavailable Slezka, Vojtech MD Unavailable Unavailable Slezka, Vojtech MD Unavailable Unavailable Re-disclosure Warning The records [...] is protected by Article 27-F of the [place] State Public Health law. If you continue you may have access to information: Regarding HIV / AIDS; Provided by facilities licensed or operated by the [facility] Office of Mental Health; or Provided by the [facility] Office for People With Developmental Disabilities. If such information is present, then the following [facility] mandated warning applies: This information has [...] law may result in a fine or fdc sentence or both. A general authorization for the release of medical or other information is NOT sufficient authorization for further disc losure. Encounters Encounter Providers Location Date Indications Data Source(s ) [place] [address] [facility] [address] 08/29/2021 12:00:00 AM EST eCW1 ([facility]ly [facility]) Unknown [address] [facility] [address] 05/28/2021 12:00:00 AM EDT eCW1 (Formerly [facility]) Outpatient Attender: ORTEGA NOWAK 12:00:00 AM EDT - 04/01/2021 11:42:36 AM EDT [facility] [place] [address] [facility] [address] 03/31/2021 12:00:00 AM EDT eCW1 (Formerly [facility]) Outpatient [address] [facility] [place] [address] 03/20/2021 12:00:00 AM EDT eCW1 (Formerly [facility]) Outpatient Attender: NORM Villegas/Roxana/Igor/Rein dl 03/13/2021 11:30:00 AM EDT [facility] ([facility]) [place] [address] [facility] [address] 02/27/2021 12:00:00 AM EDT eCW1 (Formerly [facility]) Outpatient Attender: NORM Villegas/Roxana/Igor/Rein dl 02/14/2021 10:00:00 AM EDT [facility] ([facility]) Out[place] [address] [facility] [address] 02/03/2021 12:00:00 AM EDT eCW1 (Formerly [facility]) Outpatient SJP.MELBA-SJP 12/31/2020 06:46:24 PM EDT [facility] Outpatient Attender: ORTEGA MCCOYMELBA-SJP.MELBA 12:00:00 AM EDT - 12/31/2020 11:56:09 AM EDT [facility] Outpatient SJP.MELBA-SJP.MELBA 12/31/2020 12:00:00 AM EDT [facility] Unknown [address] [facility] [address] 12/30/2020 12:00:00 AM EDT eCW1 ([facility]ly [facility]) Outpatient Attender: NORM Villegas/[place]/Igor/Rein dl 12/27/2020 10:30:00 AM EST [facility] ([facility]) [place] [address] [facility] [address] 12/13/2020 12:00:00 AM EST eCW1 ([facility]ly [facility]) Outpatient Attender: NORM Villegas/[place]/Igor/Rein dl 11/26/2020 09:30:00 AM EST [facility] ([facility]) Outpatient Attender: Erika Garcia MD SJLupilloMELBA-SJP.MELBA 10/2019 12:00:00 AM EST - 09/17/2020 11:58:29 AM EST [facility] Outpatient Attender: Anshu Dudley/[place]/Igor/Donal ndl 09/09/2020 12:23:00 AM EST [facility] ([facility]) Outpatient Attender: Anshu Dudley/[place]/Igor/Donal ndl 09/08/2020 12:23:00 AM EST [facility] ([facility]) Inpatient Attender: RICHI QUEZADA ttender: DRU HOLLIDAY MDAdmitter: RICHI HAYESReferrer: DRU HOLLIDAY MD [id number] 08/28/2020 12:00:0 0 AM EST - 08/30/2020 12:48:00 PM EST Non-ST elevation (NSTEMI) myocardial infarction [facility] Non-ST elevation (NSTEMI) myocardial inf arction Patient discharged. Outpatient Attender: Aries Villegas/Roxana/Igor/Donal willis 07/15/2020 09:30:00 AM EDT [facility] ([facility] pedro, DOREEN) Medications Medication Brand Name Start Date Product Form Dose Route Admi nistrative Instructions Pharmacy Instructions Status Indications Reaction Description Data Source(s) EPINEPHrine (EPIPEN) 0.3 MG/0.3ML SOAJ [id number] 04/01/2021 12:00:00 A M EDT active Inject into thigh once fo r severe allergic reaction [facility] 60 ACTUAT Fluticasone propionate 0.5 MG/ ACTUAT / salmeterol 0.05 MG/ACTUAT Dry Powder Inhaler [Advair] Advair Diskus 500-50 MCG/DOSE DISKUS Advair Diskus 500- 50 MCG/DOSE DISKUS 04/01/2021 12:00:00 AM EDT active INHALE ONE PUFF BY MOUTH TWICE A DAY [facility] Alprostadil 0.125 MG Urethral Suppository [place] 125 MC G [place] 125 MCG 02/03/2021 12:00:00 AM EDT 1.0 {pellet_as_needed} active [place] 125 MCG eCW1 [facility] Alprostadil 0.25 MG Urethral Suppository [[place]] [place] 250 MCG [place] 250 MCG 02/03/2021 12:00:00 AM EDT 1.0 {pellet_as_needed} active [place] 250 MCG eCW1 ([facility]) Alprostadil 0.125 MG Urethral Suppository [[place]] [place] 125 MC G [place] 125 MCG 02/03/2021 12:00:00 AM EDT 1.0 {pellet_as_needed} active [place] 125 MCG eCW1 ([facility]) Alprostadil 0.125 MG Urethral Suppository [[place]] [place] 125 MC G [place] 125 MCG 02/03/2021 12:00:00 AM EDT 1.0 {pellet_as_needed} active [place] 125 MCG eCW1 ([facility]) Alprostadil 0.25 MG Urethral Suppository [[place]] [place] 250 MCG [place] 250 MCG 02/03/2021 12:00:00 AM EDT 1.0 {pellet_as_needed} active [place] 250 MCG eCW1 ([facility]) Alprostadil 0.125 MG Urethral Suppository [[place]] [place] 125 MC G [place] 125 MCG 02/03/2021 12:00:00 AM EDT 1.0 {pellet_as_needed} active [place] 125 MCG eCW1 ([facility]) SPIRIVA RESPIMAT 2.5 MCG/ACT AERS [id number] 12/28/2020 12:00:00 AM EST active INHALE TWO PUFFS BY MOUTH EVERY DAY [facility] Prednisone 20 MG Oral Tablet predniSONE (DELTASONE) 20 MG tablet predniSONE (DELTASONE) 20 MG tablet 12/28/2020 12:00:00 AM EST aborted TAKE TWO TABLETS BY MOUTH EVERY DAY FOR 5 DAYS AT A TIME DIRECTED [facility] 60 ACTUAT Fluticasone propionate 0.5 MG/ ACTUAT / salmeterol 0.05 MG/ACTUAT Dry Powder Inhaler [Advair] ADVAIR DISKUS 500-50 MCG/DOSE DISKUS ADVAIR DISKUS 500- 50 MCG/DOSE DISKUS 12/28/2020 12:00:00 AM EST aborted INHALE ONE PUFF BY MOUTH TWICE A DAY [facility] Spiriva Respimat Spiriva Respimat 12/27/2020 12:00:00 AM EST RESPIRATORY active [facility] ([facility]) Wixela Inhub Wixela Inhub 12/27/2020 12:00:00 AM EST RESPIR ATORY active [facility] ([facility] potassium chloride SA (K-DUR,KLOR-CON) 20 MEQ tablet [id number] 12/12/2020 12:00:00 AM EST 20 meq Oral active Take 20 mEq by mouth daily [facility] Prednisone 10 MG Oral Tablet predniSONE (DELTASONE) 10 MG tablet predniSONE (DELTASONE) 10 MG tablet 09/13/2020 12:00:00 AM EST aborted TAKE 6 TABLETS DAILY ON DAYS 1 3 5 DAILY ON DAYS 4 5 4 DAILY ON DAYS 6 7 3 DAILY ON DAYS 8 9 2 DAILY ON DAYS 10 11 AND 1 DAILY ON DAYS [facility] 24 HR Isosorbide Mononitrate 30 MG Exten ded Release Oral Tablet isosorbide mononitrate (IMDUR) 24 hr tablet 30 mg isosorbide mononitrate (IMDUR) 24 hr tablet 30 mg 08/30/2020 09:00:00 AM EST 30 mg Oral activ e 30 mg, Oral, Daily Standard, First dose on Wed08/30/20 at 0900, For 30 days
DO NOT CRUSH/CHEW
[facility] Medication administered onsite 24 HR metoprolol succinate 50 MG Extende d Release Oral Tablet metoprolol (TOPROL-XL) 24 hr tablet 200 mg metoprolol (TOPROL-XL) 24 hr tablet 200 mg 08/30/2020 09:00:00 AM EST 200 mg Oral active 200 mg, Oral, Daily Standard, First dose on Wed08/30/20 at 0900, For 30 days
Do not crush or chew
[facility] Medication administered onsite 0.4 ML Enoxaparin sodium 100 MG/ML Prefi lled Syringe enoxaparin sodium (LOVENOX) injection 40 mg enoxaparin sodium (LOVENOX) injection 40 mg 08/30/2020 09:00:00 AM EST 40 mg Subcutaneous active 40 mg, Subcutaneous, Daily Standard, First dose on Wed08/30/20 at 0900, For 30 days [facility] Medication administered onsite 24 HR metoprolol succinate 200 MG Extend ed Release Oral Tablet metoprolol (TOPROL-XL) 200 MG 24 hr tablet metoprolol (TOPROL-XL) 200 MG 24 hr tablet 08/30/2020 12:00:00 AM EST 200 mg Oral active Take 200 mg by mouth [facility] Hydrochlorothiazide 12.5 MG Oral Tablet hydroCHLOROthiazide 12.5 MG Oral Tablet (HYDRODIURIL) hydroCHLOROthiazide 12.5 MG Oral Tablet (HYDRODIURIL) 08/30/2020 12:00:00 AM EST 12.5 mg Oral active Take 1 tablet by mouth daily [facility] 24 HR Isosorbide Mononitrate 30 MG Exten ded Release Oral Tablet Isosorbide Mononitrate ER 30 MG Oral Tablet Extended Release 24 Hour (IMDUR) Isosorbide Mononitrate ER 30 MG Oral Tablet Extended Release 24 Hour (IMDUR) 08/30/2020 12:00:00 AM EST 30 mg Oral active Take 1 t ablet by mouth daily [facility] 24 HR metoprolol succinate 200 MG Extend ed Release Oral Tablet Metoprolol Succinate ER 200 MG Oral Tablet Extended Release 24 Hour (TOPROL-XL) Metoprolol Succinate ER 200 MG Oral Tablet Extended Release 24 Hour (TOPROL-XL) 08/30/2020 12:00:00 AM EST 200 mg Oral active Take 1 t ablet by mouth daily [facility] Levetiracetam 250 MG Oral Tablet levETIRAcetam 250 MG Oral Tablet (Keppra) levETIRAcetam 250 MG Oral Tablet (Keppra) 08/30/2020 12:00:00 AM EST 250 mg Oral active Take 1 tablet by abel th Two Times Daily [facility] atorvastatin 20 MG Oral Tablet Atorvastatin Calcium 20 MG Oral Tablet (LIPITOR) Atorvastatin Calcium 20 MG Oral Tablet (LIPITOR) 08/30/2020 12:00:00 AM EST 20 mg Oral active Take 1 tablet by mouth e very evening [facility] Hydralazine Hydrochloride 25 MG Oral Tab let hydrALAZINE HCl 25 MG Oral Tablet (APRESOLINE) hydrALAZINE HCl 25 MG Oral Tablet (APRESOLINE) 12:00:00 AM EST 25 mg Oral active Take 1 tablet by mouth every 8 (eight) hours [facility] Hydralazine Hydrochloride 25 MG Oral Tab let hydrALAZINE (APRESOLINE) 25 MG tablet hydrALAZINE (APRESOLINE) 25 MG tablet 08/30/2020 12:00:00 AM EST 25 mg Oral active Take 25 mg by mouth [facility] 24 HR Isosorbide Mononitrate 30 MG Exten ded Release Oral Tablet isosorbide mononitrate (IMDUR) 30 MG 24 hr tablet isosorbide mononitrate (IMDUR) 30 MG 24 hr tablet 08/30/2020 12:00:00 AM EST 30 mg Oral active Take 30 mg by mouth [facility] Hydrochlorothiazide 12.5 MG Oral Tablet hydrochlorothiazide (HYDRODIURIL) 12.5 MG tablet hydrochlorothiazide (HYDRODIURIL) 12.5 MG tablet 08/30 12:00:00 AM EST 12.5 mg Oral active Take 12.5 mg by mouth [facility] atorvastatin 20 MG Oral Tablet atorvastatin (LIPITOR) 20 MG tablet atorvastatin (LIPITOR) 20 MG tablet 08/30/2020 12:00:00 AM EST active [facility] Levetiracetam 250 MG Oral Tablet levETIRAcetam (KEPPRA ) 250 MG tablet levETIRAcetam (KEPPRA) 250 MG tablet 08/30/2020 12:00:00 AM EST 250 m g Oral active Take 250 mg by mouth [facility] 24 HR metoprolol succinate 200 MG Extend ed Release Oral Tablet [Toprol] TOPROL XL 200 MG 24 hr tablet TOPROL XL 200 MG 24 hr tablet 08/30/2020 12:00:00 AM EST active [facility] Hydralazine Hydrochloride 25 MG Oral Tab let hydrALAZINE (APRESOLINE) tablet 25 mg hydrALAZINE (APRESOLINE) tablet 25 mg 08/29/2020 09:00:00 PM EST 25 mg Oral active 25 mg, Oral, E very 8 hours Standard (3 times per day), First dose on [facility] 08/29/20 at 2100, For 30 days
Check vital signs before administering
[facility] Medication administered onsite atorvastatin 20 MG Oral Tablet atorvastatin (LIPITOR) tablet 20 mg atorvastatin (LIPITOR) tablet 20 mg 08/29/2020 09:00:00 PM EST 20 mg Oral active 20 mg, Oral, Every evening, First dose (after last modification) on [facility] 08/29/20 at 2100, For 29 doses [facility] Medication administered onsite clopidogrel 75 MG Oral Tablet clopidogrel (PLAVIX) tab let 75 mg clopidogrel (PLAVIX) tablet 75 mg 08/29/2020 09:00:00 AM EST 75 mg Oral aborted 75 mg, Oral, Daily Standard, First dose on [facility] 08/29/20 at 0900, For 30 days [facility] Medication administered onsite Allopurinol 300 MG Oral Tablet allopurinol (ZYLOPRIM) tablet 300 mg allopurinol (ZYLOPRIM) tablet 300 mg 08/29/2020 09:00:00 AM EST 300 mg Oral active 300 mg, Oral, Daily Standard, First dose on 08/29 at 0900, For 30 days [facility] Medication administered onsite doxepin (SINEQUAN) capsule 75 mg 08/29/2020 09:00:00 AM EST 75 mg Oral active 75 mg, Oral, Daily Standard, First dose on Wed08/29/20 at 0900, For 30 days [facility] Medication administered onsite Hydrochlorothiazide 25 MG Oral Tablet hy drochlorothiazide (HYDRODIURIL) tablet 12.5 mg hydrochlorothiazide (HYDRODIURIL) tablet 12.5 mg 08/29 09:00:00 AM EST 12.5 mg Oral active 12.5 mg, Oral, Daily Standard, First dose on Wed08/29/20 at 0900, For 30 days [facility] Medication administered onsite Aspirin 81 MG Delayed Release Oral Tablet aspirin EC E C tablet 81 mg aspirin EC EC tablet 81 mg 08/29/2020 09:00:00 AM EST 81 mg Oral ac tive 81 mg, Oral, Daily Standard, First dose on Wed08/29/20 at 0900, For 30 days [facility] Medication administered onsite Cholecalciferol 1000 UNT Oral Tablet vit lugo D3 (CHOLECALCIFEROL) tablet 2,000 Units vitamin D3 (CHOLECALCIFEROL) tablet 2,000 Units 2019 09:00:00 AM EST 2000 U Oral active 2,000 Un its, Oral, Daily Standard, First dose on Wed08/29/20 at 0900, For 30 days
25 mcg vitamin D3 = 1,000 international units vitamin D3.
[facility] Medication administered onsite pantoprazole 20 MG Delayed Release Oral Tablet pantoprazole (PROTONIX) EC tablet 20 mg pantoprazole (PROTONIX) EC tablet 20 mg 08/29/2020 09:00:[address] 20 mg Oral active 20 mg, Ora l, Daily Standard, First dose on Wed08/29/20 at 0900, For 30 days
Do not crush or chew
[facility] Medication administered onsite perflutren lipid microspheres (DEFINITY) injectable suspensi on 9.78 mg [id number] 08/29/2020 08:33:29 AM EST 1.5 mL Intravenous active 9.78 mg (1.5 mL), Intravenous, Once PRN, Other, Echo imaging enhancement, Starting Deloris 08/29/20 at 0833, For 72 hours [facility] Medication administered onsite fentaNYL (SUBLIMAZE) (PF) injection 12.5 mcg [id number] 08/29/2020 01:15:00 AM EST 12.5 ug Intravenous completed 12 .5 mcg, Intravenous, Once, Deloris 08/29/20 at 0115, For 1 dose [facility] Medication administered onsite Doxepin Hydrochloride 50 MG Oral Capsule doxepin (SINE LEON) capsule 50 mg doxepin (SINEQUAN) capsule 50 mg 08/28/2020 10:00:00 PM EST 50 mg Oral active 50 mg, Oral, Nightly , First dose on Wed08/28/20 at 2200, For 30 days [facility] Medication administered onsite atorvastatin 40 MG Oral Tablet atorvastatin (LIPITOR) tablet 80 mg atorvastatin (LIPITOR) tablet 80 mg 08/28/2020 09:00:00 PM EST 80 mg Oral aborted 80 mg, Oral, Every evening, First dose on Wed08/28/20 at 2100, For 30 days [facility] Medication administered onsite Levetiracetam 250 MG Oral Tablet levETIRAcetam (KEPPRA ) tablet 250 mg levETIRAcetam (KEPPRA) tablet 250 mg 08/28/2020 09:00:00 PM EST 250 m g Oral active 250 mg, Oral, 2 Times Daily, First dose on Wed08/28/20 at 2100, For 30 days [facility] Medication administered onsite Metoprolol Tartrate 50 MG Oral Tablet metoprolol (LOPR ESSOR) tablet 100 mg metoprolol (LOPRESSOR) tablet 100 mg 08/28/2020 09:00:00 PM EST 100 m g Oral completed 100 mg, Oral, 2 Times Daily, First dose on Wed08/28/20 at 2100, For 3 doses [facility] Medication administered onsite Clonidine Hydrochloride 0.1 MG Oral Tablet cloNIDine ( CATAPRES) tablet 0.1 mg cloNIDine (CATAPRES) tablet 0.1 mg 08/28/2020 09:00:00 PM EST 0.1 mg Oral aborted 0.1 mg, Oral, 2 Time s Daily, First dose on Wed08/28/20 at 2100, For 30 days
Check vital signs before administering
[facility] Medication administered onsite Clonazepam 1 MG Oral Tablet clonazePAM (KLONOPIN) tabl et 0.5 mg clonazePAM (KLONOPIN) tablet 0.5 mg 08/28/2020 09:00:00 PM EST 0.5 mg Oral active 0.5 mg, Oral, 2 Times Daily, First dose on Wed 0 at 2100, For 30 days [facility] Medication administered onsite magnesium sulfate in dextrose 5 % infusion (premix) 1 g [id number] -[id number] 08/28/2020 08:30:00 PM EST 1 g Intravenous completed 1 g, Intravenous, Administer over 60 Minutes, Once, Wed08/28/20 at 2030, For 1 dose [facility] Medication administered onsite 60 ACTUAT Budesonide 0.16 MG/ACTUAT / fo rmoterol fumarate 0.0045 MG/ACTUAT Metered Dose Inhaler budesonide-formoterol (SYMBICORT) 160-4.5 MCG/ACT inhaler 2 puff budesonide-formoterol (SYMBICORT) 160-4.5 MCG/ACT inha ler 2 puff 08/28/2020 08:00:00 PM EST 2 {puff} Inhalation active 2 puff, Inhalation, 2 Times Daily, First dose on Wed08/28/20 at 2000, For 14 days
Shake well before using Therapeutic sub for Advair
[facility] Medication administered onsite NaCl infusion 0.9 % [id number] 08/28/2020 07:00:00 PM EST Intravenous completed at 100 mL/hr, Intrav enous, Continuous, Starting Wed08/28/20 at 1900, For 5 hours [facility] Medication administered onsite Nitroglycerin 0.02 MG/MG Topical Ointment nitroglyceri n ointment 2 % 1 inch nitroglycerin ointment 2 % 1 inch 08/28/2020 07:00:00 PM EST 1 [ in_us] Transdermal aborted 1 inch, Trans dermal, Every 6 hours, First dose on Wed08/28/20 at 1900, For 2 days [facility] Medication administered onsite albuterol (PROVENTIL HFA) inhaler 2 puff [id number] 08/28/2020 06:03:37 PM EST 2 {puff} Inhalation active 2 pu ff, Inhalation, Every 6 hours PRN, Wheezing, Starting Wed08/28/20 at 1803, For 4 days
Shake the inhaler well before each spray.
[facility] Medication administered onsite sildenafil 100 MG Oral Tablet sildenafil (VIAGRA) 100 MG tablet sildenafil (VIAGRA) 100 MG tablet 07/12/2020 12:00:00 AM EDT active [facility] POLYETHYLENE GLYCOL 3350 142 MG/ML Oral Solution polyethylene glycol (GLYCOLAX) 17 GM/SCOOP powder polyethylene glycol (GLYCOLAX) 17 GM/SCOOP powder 06/19 12:00:00 AM EDT active [facility] Omeprazole 20 MG Delayed Release Oral Ca psule omeprazole (PRILOSEC) 20 MG capsule omeprazole (PRILOSEC) 20 MG capsule 07/12/2020 12:00:[address] [facility] Levofloxacin 500 MG Oral Tablet levofloxacin (LEVAQUIN ) 500 MG tablet levofloxacin (LEVAQUIN) 500 MG tablet 06/19/2020 12:00:00 AM EDT 50 0 mg Oral aborted Take 500 mg by mouth lalo y [facility] Metronidazole 500 MG Oral Tablet metroNIDAZOLE (FLAGYL ) 500 MG tablet metroNIDAZOLE (FLAGYL) 500 MG tablet 06/19/2020 12:00:00 AM EDT 500 m g Oral aborted Take 500 mg by mouth 3 (thre e) times a day [facility] Aspirin 81 MG Delayed Release Oral Tablet ASPIRIN LOW DOSE 81 MG EC tablet ASPIRIN LOW DOSE 81 MG EC tablet 06/14/2020 12:00:00 AM EDT aborted [facility] Metoprolol Tartrate 50 MG Oral Tablet metoprolol (LOPR ESSOR) 50 MG tablet metoprolol (LOPRESSOR) 50 MG tablet 50 mg Oral ab orted Take 50 mg by mouth Two Times Daily [facility] Clonidine Hydrochloride 0.1 MG Oral Tablet cloNIDine ( CATAPRES) 0.1 MG tablet cloNIDine (CATAPRES) 0.1 MG tablet 0.1 mg Oral abo rted Take 0.1 mg by mouth Two Times Daily [facility] 60 ACTUAT Fluticasone propionate 0.25 MG /ACTUAT / salmeterol 0.05 MG/ACTUAT Dry Powder Inhaler fluticasone-salmeterol (ADVAIR) 250-50 MCG/DOSE DISKUS fluticasone-salmeterol (ADVAIR) 250-50 MCG/DOSE DISKUS 1 {puff} Inhalation aborted Inhale 1 puff [facility] sildenafil 100 MG Oral Tablet sildenafil (VIAGRA) 100 MG tablet sildenafil (VIAGRA) 100 MG tablet 100 mg Oral aborted Take 100 mg by mouth as needed for Erectile Dysfunction [facility] levETIRAcetam (KEPPRA PO) Oral aborte d Take by mouth Two Times Daily [facility] 24 HR Levetiracetam 500 MG Extended Rele ase Oral Tablet levETIRAcetam ER 500 MG Oral Tablet Extended Release 24 Hour (KEPPRA XR) levETIRAcetam ER 500 MG Oral Tablet Extended Release 24 Hour (KEPPRA XR) 1000 mg Oral aborted Take 1,000 mg by mouth nightly [facility] Hydrochlorothiazide 25 MG Oral Tablet hy drochlorothiazide (HYDRODIURIL) 25 MG tablet hydrochlorothiazide (HYDRODIURIL) 25 MG tablet 25 mg O ral aborted Take 25 mg by mouth daily [facility] latanoprost 0.05 MG/ML Ophthalmic Soluti on latanoprost (XALATAN) 0.005 % ophthalmic solution latanoprost (XALATAN) 0.005 % ophthalmic solution 1 [drp] aborted 1 drop nightly [facility] Loratadine 10 MG Oral Tablet loratadine (CLARITIN) 10 MG tablet loratadine (CLARITIN) 10 MG tablet 10 mg Oral aborted Take 10 mg by mouth daily [facility] Insurance Providers Payer name Policy type / Coverage type Policy ID Covered constitution party ID Covered constitution party's relationship to crenshaw Policy [place] Plan Information 'S ADMINISTRATION [id number] SP [id number] COMMERCIAL GENERIC [id number] [facility] 1 [id number] COMMERCIAL GENERIC [id number] 2 [id number] MEDICARE [id number] SP [id number] 'S ADMINISTRATION [id number] 'S ADMINISTRATION [id number] SP [id number] OTHER B [id number] Self [id number] OTHER B [id number] Self [id number] COMMERCIAL GENERIC [id number] 2 [id number] COMMERCIAL GENERIC [id number] Vera 0 [id number] MEDICARE [id number] SP [id number] FOR LIFE O [id number] S [id number] MEDICARE C [id number] S [id number] EAST ACTIVE DUTY [id number] SP [id number] WEST O [id number] S [id number] NOVITAS PART B C [id number] S [id number] [facility] [id number] SP [id number] MEDICARE [id number] SP [id number] A [facility] [id number] S [id number] [place] [employer] B [id number] S [id number] [facility] [id number] SP [id number] BS [place] [employer] [id number] [facility] CCN [id number] SP [id number] EAST HUMANA [id number] SP [id number] 'S ADMINISTRATION [id number] SP [id number] [facility] [id number] SP [id number] FOR LIFE [id number] SP [id number] [facility] O [id number] S [id number] SELF PAY ONLY [id number] SP [id number] [employer] [place] O [id number] S [id number] Problems, Conditions, and Diagnoses Code Display Name Description Problem Type Effective Dates Data Source(s) I10 Essential (primary) hypertension Essential (primary) h ypertension Diagnosis 12/31/2020 09:56:03 AM EDT [facility] I21.4 Non-ST elevation (NSTEMI) myocardial inf arction Non-ST elevation (NSTEMI) myocardial inf Diagnosis 12/31/2020 09:56:03 AM EDT [facility] I51.81 Takotsubo syndrome Takotsubo syndrome Diagnosis 09:56:03 AM EDT [facility] I21.4 Non-ST elevation (NSTEMI) myocardial inf arction Non-ST elevation (NSTEMI) myocardial infarction Diagnosis 08/28/2020 05:53:06 PM [facility] NSTEMI NSTEMI Diagnosis 08/28/2020 05:36:00 PM [facility] E66.09 Class 1 obesity due to exces s calories with serious comorbidity and body mass index (BMI) of 32.0 to 32.9 in adult Class 1 obesity due to excess calories with serious comorbidity and body mass index (BMI) of 32.0 to 32.9 in adult [id number] 04/01/2021 12:00:00 AM EDT [facility] N52.9 Erectile dysfunction Erectile dysfunction Problem 02/03/2021 12:00:00 AM EDT [facility] I10 Essential hypertension Essential hypertension [id number] 12/31/2020 12:00:00 AM EDT [facility] I51.81 Stress-induced cardiomyopathy Stress-induced cardiomyo robert [id number] 09/17/2020 12:00:00 AM [facility] I21.4 NSTEMI (non-ST elevated myocardial infar ction) NSTEMI (non-ST elevated myocardial infarction) [id number] 08/28/2020 12:00:00 AM [facility] Surgeries/Procedures Procedure Description Date Indications Data Source(s) Spirometry 02/14/2021 12:00:00 AM EDT [place] ([facility]) ECG ROUTINE ECG W/LEAST 12 LDS W/I&R <td>POCT AMB EKG</td><td>Routine</td><td>12/31/2020 12:47 PM EDT</td><td> NSTEMI (non-ST elevated myocardial infarction)</td><td> </td> 12/31/2020 04:47:00 PM EDT NSTEMI (non-ST elevated myocardial infarction) [facility] NSTEMI (non-ST elevated myocardial infar ction) DEMO&/EVAL OF PT UTILIZ AERSL GEN/NEB/INHLR/IPPB 12/27 12:00:00 AM EST [facility] ([facility], ) Bronchospasm Evaluation 12/19/2020 12:00:00 AM EST [facility] ([facility], ) Plethysmography Determination Lung Volumes & Per Airway Resi st 12/19/2020 12:00:00 AM EST [facility] ([facility], ) DIFFUSING CAPACITY 12/19/2020 12:00:00 AM EST [facility] ([facility], ) POCT AMB EKG <td>POCT AMB EKG</td><td>Rou deloris</td><td>09/17/2020 11:23 AM EST</td><td> NSTEMI (non-ST elevated myocardial infarction)</td><td> </td> 09/17/2020 04:23:00 PM EST NSTEMI (non-ST elevated myocardial infarction) [facility] NSTEMI (non-ST elevated myocardial infar ction) BLOOD COUNT COMPLETE AUTO&AUTO DIFRNTL WBC COUNT <td>C BC AND DIFFERENTIAL</td><td>Routine</td><td>09/10/2020</td><td></td><td> </td> 09/10/2020 12:00:00 AM EST [facility] LIPID PANEL <td>LIPID PANEL</td><td>Rout ine</td><td>09/09/2020</td><td></td><td> </td> 09/09/2020 12:00:00 AM EST [facility] BASIC METABOLIC PANEL CALCIUM TOTAL <td>BASIC METABOLI C PANEL</td><td>Routine</td><td>09/09/2020</td><td></td><td> </td> 09/09/2020 12:00:00 AM EST [facility] Bronchoscopy W/Brushing Or Protected Brushings 020 12:00:00 AM EST [facility] ([facility], ) Bronchoscopy W/Bronchial Alveolar Lavage 09/08/2020 12 :00:00 AM EST [facility] ([facility], ) BLOOD COUNT COMPLETE AUTO&AUTO DIFRNTL WBC COUNT <td>C BC AND DIFFERENTIAL</td><td>Routine</td><td>08/30/2020 4:28 AM EST</td><td></td><td> </td> 08/30/2020 04:28:00 AM [facility] CALCIUM IONIZED <td>CALCIUM, IONIZED</td><td >Routine</td><td>08/30/2020 4:28 AM EST</td><td></td><td> </td> 08/30/2020 04:28:00 AM [facility] BASIC METABOLIC PANEL CALCIUM TOTAL <td>BASIC METABOLI C PANEL</td><td>Routine</td><td>08/30/2020 4:28 AM EST</td><td></td><td> </td> 08/30/2020 04:28:00 AM [facility] L HRT ARTERY/VENTRICLE ANGIO <td>L HRT ARTERY/VENTRICL E ANGIO</td><td></td><td>08/29/2020 11:27 AM EST</td><td> NSTEMI</td><td></td> 08/29/2020 11:27:00 AM EST - 08/29/2020 12:21:00 PM [facility] CARDIAC CATH PROCEDURE LOG <td>CARDIAC CATH PROCEDURE LOG</td><td></td><td>08/29/2020 10:55 AM EST</td><td></td><td></td> 08/29/2020 10:55:58 AM [facility] ECHO TTHRC R-T 2D W/WOM-MODE COMPL SPEC&COLR DOP <td>E CHOCARDIOGRAM 2D COMPLETE</td><td>Routine</td><td>08/29/2020 9:38 AM EST</td><td></td><td> </td> 08/29/2020 09:38:11 AM [facility] EKG 12-LEAD - CMAXX REPORT <td>EKG 12-LEAD - CMAXX REPORT</td><td></td><td>08/29/2020 9:10 AM EST</td><td></td><td></td> 08/29/2020 09:10:32 AM [facility] EKG 12-LEAD - CMAXX REPORT <td>EKG 12-LEAD - CMAXX REPORT</td><td></td><td>08/29/2020 9:10 AM EST</td><td></td><td></td> 08/29/2020 09:10:32 AM [facility] EKG 12-LEAD <td>EKG 12-LEAD</td><td>Rout ine</td><td>08/29/2020 9:10 AM EST</td><td></td><td> </td> 08/29/2020 09:10:32 AM [facility] SWEET GOODS MACHINE OPERATOR PROCEDURE <td>SWEET GOODS MACHINE OPERATOR PROCEDURE</td>< td>Routine</td><td>08/29/2020 8:43 AM EST</td><td></td><td></td> 08/29/2020 08:43:41 AM [facility] PLATELET AGGREGATION IN VITRO EACH AGENT <td>VERIFYNOW P2Y12</td><td>Routine</td><td>08/29/2020 5:29 AM EST</td><td></td><td> </td> 08/29/2020 05:29:00 AM [facility] PROTHROMBIN TIME <td>PROTIME INR</td><td>Rout ine</td><td>08/29/2020 5:29 AM EST</td><td></td><td> </td> 08/29/2020 05:29:00 AM [facility] BLOOD COUNT COMPLETE AUTO&AUTO DIFRNTL WBC COUNT <td>C BC AND DIFFERENTIAL</td><td>Routine</td><td>08/29/2020 5:29 AM EST</td><td></td><td> </td> 08/29/2020 05:29:00 AM [facility] TROPONIN QUANTITATIVE <td>TROPONIN T</td><td>Timed </td><td>08/29/2020 5:29 AM EST</td><td></td><td> </td> 08/29/2020 05:29:00 AM [facility] BASIC METABOLIC PANEL CALCIUM TOTAL <td>BASIC METABOLI C PANEL</td><td>Routine</td><td>08/29/2020 5:29 AM EST</td><td></td><td> </td> 08/29/2020 05:29:00 AM [facility] HEPARIN ASSAY <td>ANTI-XA UNFRACTIONATED H EPARIN LEVEL</td><td>Routine</td><td>08/29/2020 12:16 AM EST</td><td></td><td> </td> 08/29/2020 12:16:00 AM [facility] TROPONIN QUANTITATIVE <td>TROPONIN T</td><td>Timed </td><td>08/29/2020 12:16 AM EST</td><td></td><td> </td> 08/29/2020 12:16:00 AM [facility] EKG 12-LEAD - CMAXX REPORT <td>EKG 12-LEAD - CMAXX REPORT</td><td></td><td>08/28/2020 6:21 PM EST</td><td></td><td></td> 08/28/2020 06:21:48 PM [facility] EKG 12-LEAD - CMAXX REPORT <td>EKG 12-LEAD - CMAXX REPORT</td><td></td><td>08/28/2020 6:21 PM EST</td><td></td><td></td> 08/28/2020 06:21:48 PM [facility] EKG 12-LEAD <td>EKG 12-LEAD</td><td>STAT </td><td>08/28/2020 6:21 PM EST</td><td></td><td> </td> 08/28/2020 06:21:48 PM [facility] XR CHEST FRONTAL ONLY [id number] <td>XR CHEST FRONTAL ONLY [id number]</td><td>STAT</td><td>08/28/2020 6:15 PM EST</td><td></td><td> </td> 08/28/2020 06:15:00 PM [facility] HEPARIN ASSAY <td>ANTI-XA UNFRACTIONATED H EPARIN LEVEL</td><td>Routine</td><td>08/28/2020 6:12 PM EST</td><td></td><td> </td> 08/28/2020 06:12:00 PM [facility] HEPATITIS C ANTIBODY <td>HEPATITIS C ANTIBODY</td ><td>Routine</td><td>08/28/2020 6:12 PM EST</td><td></td><td> </td> 08/28/2020 06:12:00 PM [facility] PROTHROMBIN TIME <td>PROTIME INR</td><td>Rout ine</td><td>08/28/2020 6:12 PM EST</td><td></td><td> </td> 08/28/2020 06:12:00 PM [facility] BLOOD COUNT COMPLETE AUTOMATED <td>CBC</td><td>Timed</ td><td>08/28/2020 6:12 PM EST</td><td></td><td> </td> 08/28/2020 06:12:00 PM [facility] PHOSPHORUS INORGANIC <td>PHOSPHORUS LEVEL</td><td >Routine</td><td>08/28/2020 6:12 PM EST</td><td></td><td> </td> 08/28/2020 06:12:00 PM [facility] MAGNESIUM <td>MAGNESIUM LEVEL</td><td> Routine</td><td>08/28/2020 6:12 PM EST</td><td></td><td> </td> 08/28/2020 06:12:00 PM [facility] LIPID PANEL <td>LIPID PANEL</td><td>Rout ine</td><td>08/28/2020 6:12 PM EST</td><td></td><td> </td> 08/28/2020 06:12:00 PM [facility] BASIC METABOLIC PANEL CALCIUM TOTAL <td>BASIC METABOLI C PANEL</td><td>Routine</td><td>08/28/2020 6:12 PM EST</td><td></td><td> </td> 08/28/2020 06:12:00 PM [facility] Results ID Date Data Source [id number] 12/31/2020 06:42:44 PM EDT [facility] Name Value Range Interpretation Code Description Data Kiana rce(s) Supporting Document(s) &PDF [facility] NWARBd3yCtULHcQb78/DSUtrWPYiy6ClLTsjNLp3ZMugRBPcA4OjxNmtQBWVY1zZApJCH38vMHhVWJ2m vci [file] OuxIJcgXcKdT5Qohg6Kk4bWlb9b6LwbQ8kH/PofVQV9agUGsXInVzoY9dbg/6isYC/J7KN4YvPSC1+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 [file] AgICAgICAgICAgICAgICAgICAgICAgICAgICAgICAg ICAgICAgICAgICAgICAgICAgICAgICAgICAgICAgICAgICAgICAgICAgICAgICAgICAgICAgICAgICAg DQogICAgICAgICAgICAgICAgICAgICAgICAgICAgICAgICAgICAgICAgICAgICAgICAgICAgICAgICAg ICAgICAgICAgICAgICAgICAgICAgICAgICAgICAgIC AgICAgICAgICAgDQogICAgICAgICAgICAgICAgICAgICAgICAgICAgICAgICAgICAgICAgICAgICAgIC AgICAgICAgICAgICAgICAgICAgICAgICAgICAgICAgICAgICAgICAgICAgICAgICAgICAgDQogICAgIC AgICAgICAgICAgICAgICAgICAgICAgICAgICAgICAg ICAgICAgICAgICAgICAgICAgICAgICAgICAgICAgICAgICAgICAgICAgICAgICAgICAgICAgICAgICAg ICAgDQogICAgICAgICAgICAgICAgICAgICAgICAgICAgICAgICAgICAgICAgICAgICAgICAgICAgICAg ICAgICAgICAgICAgICAgICAgICAgICAgICAgICAgIC AgICAgICAgICAgICAgDQogICAgICAgICAgICAgICAgICAgICAgICAgICAgICAgICAgICAgICAgICAgIC AgICAgICAgICAgICAgICAgICAgICAgICAgICAgICAgICAgICAgICAgICAgICAgICAgICAgICAgDQogIC AgICAgICAgICAgICAgICAgICAgICAgICAgICAgICAg ICAgICAgICAgICAgICAgICAgICAgICAgICAgICAgICAgICAgICAgICAgICAgICAgICAgICAgICAgICAg ICAgICAgDQogICAgICAgICAgICAgICAgICAgICAgICAgICAgICAgICAgICAgICAgICAgICAgICAgICAg ICAgICAgICAgICAgICAgICAgICAgICAgICAgICAgIC AgICAgICAgICAgICAgICAgDQogICAgICAgICAgICAgICAgICAgICAgICAgICAgICAgICAgICAgICAgIC AgICAgICAgICAgICAgICAgICAgICAgICAgICAgICAgICAgICAgICAgICAgICAgICAgICAgICAgICAgDQ ogICAgICAgICAgICAgICAgICAgICAgICAgICAgICAg ICAgICAgICAgICAgICAgICAgICAgICAgICAgICAgICAgICAgICAgICAgICAgICAgICAgICAgICAgICAg BQLdEAZrHTGcOOk5L3elPCLcJEOlGH5xPLf8Ts5+RKaOIySnYJJ9yjBxgV2XKH7lf5OeKYndSDSeq9Wp UPn8YX9UCZLhNUtzMB6KBDtyqx6BFWKqDOMcsGXWz0 hgCgFnHNR9ZHKfVljcTJ8OTHFrI7sbbaIvBRMyWSAKRMqfOGUCPM8RVtLoZ5CceP57KDJUWo9+DQplbm RfSwlOMmZrGHKuv0SsVDa2MT8FJKOxKWgmPW0BFWGkoF7wJKxgZP9QDmYnWVGwWMVCVcUfW04gmBQmTB c0Q1XzWaCoZNIjMayaSCCwUSvlUdByFCHjCsMbYBur ID4+ID4+SYtyJO9MUVjdmnVsONTwCv8XDUZfJST2ERIjwNJjOiZuJXNSFAygQQ6XzZOvIGR7eH6tPTyc HOMnHPWeS9kVDmRvqXyqVW83fGbbgkUwxCByVAn+Tg2OAZ1ka4UrGIi6koScMFqxMTQyTGafGAPaYIDt THFzIOQ4GLP7TNYWVkWmZFWxJVScKWafUBIbONYomc 5LYNXaYRXgZGV4JZHjHKJdLMSpMLyxGMDcAQSxPLW0YYAyCZEpLE2SGfBdJIGaXMBsEXVqEEZtAMNyjb 6YWZOaSDQqIjJ7VnPcIXUgUALiQNlaKJHeUCVwPHvoZDUySIBkNG3ATwWqNIErYYJ4DCSmAAApMXUaba 3KPTXrJTSoLMypXLUdSYCbQJBbHFjwTLEwQWF2ORAl XLMbVHJbLL0XAxFwLHMlBQuvFGwtWKWqBZDeeh6TLNYbZPDeQeL1KXIqYFHiSPHgLHvxHCWoHSI5EKl2 QJKaRPObQZ5JTuHbNSMeLSq0LNKvOCTkZIWnbe8OPAOgCDRfEKO6VEOyDTWxAZXvMXyvKFUtVNH5QET3 IMTqEWFxMA5MEjNtBVDpDDe6DQgjYJBuMFXbsi9KSV OgMDPcAPmsTlHzSNAqLPGhEHhrZDOcDWT6QoM8LTUcTFLbPD2QLlRsOUBpOSl6ZGOdUTGiTXLvps9DAX MeYCScHUT7TQYoCIGxXVAeIAgyEGCcGMUjQWL0UOAmEDRkOS3XRqHgQHzrNACUHno2ZJmcO4p5ZKGmEn 5HE7Nsd0UnWgCbLFQPELfeGT3bnkAoDPUvXn7KO1gI ZtyqOyj5QKSzWeFuVaY8XiYrRdD2E5ToPMPyDBDrFzMhGw2ePPYcAYw1BOXpAxXvKAjbHcQmOiUhVxVr GBSjDGKyL2BwEwRxDL7GVl9MQvS6MZX1aHWlVs1TTqJ8VIVYZoXlPZ7EUHm= ID Date Data Source [id number] 10/30/2020 02:46:00 AM EST [facility] Name Value Range Interpretation Code Description Data Kiana rce(s) Supporting Document(s) SARS coronavirus 2 RNA [Presence] in Res piratory specimen by DEE with probe detection NEGATIVE [facility] This lab was ordered by [facility] a nd reported by [facility]. ID Date Data Source [id number] 09/04/2020 03:02:29 PM [facility] Name Value Range Interpretation Code Description Data Kiana rce(s) Supporting Document(s) Discharge Summary [facility] KEUVRu6qGvKYMkGu96/HXSvmIQEuq8AbXHvmSUo4QIbxOGMuG1OpUSI2cI7rUEE6IZnSWmGuUkVsGNO8 lbm [file] FVMcMaPE8VFKf= ID Date Data Source [id number] 09/04/2020 02:44:55 PM [facility] Name Value Range Interpretation Code Description Data Kiana rce(s) Supporting Document(s) History and Physical [facility] NQRCMd6rGqBLGdOr36/KQQnwELGzv3CxQRqwOVl0OHltDMAzO6LuPDZ9nA6aLCH4UNmUDdVuIrKfSUX3 lbm [file] ICAgICAgICAgICAgICAgICAgICAgICAgICAgICAgICAgICAgICAgICAgICAgICAgICAgICAgICAgICAg SLAtIXPyMYAfXLLkAF0BBBVsRFFhKWMkLUMzZFRcHD AgICAgICAgICAgICAgICAgICAgICAgICAgICAgICAgICAgICAgICAgICAgICAgICAgICAgICAgICAgIC CrKJGoEPZhUAIkIJWmSWNwUJPcLOKdFL2JSOAcUBApVPPiTASaZFZbHQAkVPZyNAViDNPhRXSdZNJhGX AgICAgICAgICAgICAgICAgICAgICAgICAgICAgICAg JZDiGYWzXQLuYINgAKApAWDaXXDbYIPoVLKgMNWhUGYpVD5WZZIkUSOfFKSnOYWpUGSqDGTiSEJeUREt ICAgICAgICAgICAgICAgICAgICAgICAgICAgICAgICAgICAgICAgICAgICAgICAgICAgICAgICAgICAg EFIvITMtZKEpGKQdVIXjCG4WSKDjVQCmINAvMTKpAJ AgICAgICAgICAgICAgICAgICAgICAgICAgICAgICAgICAgICAgICAgICAgICAgICAgICAgICAgICAgIC SlOMJsNMTjLPBcNPHzPXCbXHGbZNTeDBVxME8APXNqDDPhZSTcEFYdVZFjPHScYNXfMXPlQYYdJLSvKC AgICAgICAgICAgICAgICAgICAgICAgICAgICAgICAg YDVsZGKxKQUzOBIlEAJxMOInVOWiORKoITOnQHAnLPXjMKZzWD2BDPIxCBIoWGNxCVRuAZKwDFVbJJCd ICAgICAgICAgICAgICAgICAgICAgICAgICAgICAgICAgICAgICAgICAgICAgICAgICAgICAgICAgICAg NMNjUXQuJLIjWMLpFCAaYMIeOH5KRSAnXJOpIEYoCM AgICAgICAgICAgICAgICAgICAgICAgICAgICAgICAgICAgICAgICAgICAgICAgICAgICAgICAgICAgIC TuUTXuYNGyHDSqKEIwETKvZXNrJGHeBIAzOVBtTM1LIAKhZSZnNZSmJEYeFDJcIDHbPOPeULBuKZRxRQ AgICAgICAgICAgICAgICAgICAgICAgICAgICAgICAg OUWuVKNmLIWlWSXgOSDuZYRcYNSlVMZdGZUiEOUcOYFbXTWaANJeYP2ICXAlSAXbZEQuOICmPMDsGEXv ICAgICAgICAgICAgICAgICAgICAgICAgICAgICAgICAgICAgICAgICAgICAgICAgICAgICAgICAgICAg WVUbSLUmVNRgSLDkDYUjHXTeBGUpYH8TIE90qEMxb3 H9QJXrDR0ljlm/Lm4BAUfopeRiwSIxKB7IPtSsUH7nln1AHfUzOS4qty5TQGdEBsMfJ0Q1iZZdBRNoYV CFQaXwB34bNZchCw48GNvnWUVlJkBlFEo9Ik6OZzZtX5rlILFsOiS9NFXdHuK6EHUkHyR7DJFcZaZyQR UfQLByWYOiFDONMZB6ZKBuVnRsCJspPE4Mg4YojFX8 DQo+Yw7FJB8fe3WqKZjlHnDdDL7klc7WZTbAGbAaV7KfijA6DEBfGVLrOo0UVUWvAXLstUJfIuIdMGTE ZcXdA2CmxP74HDBWJh1+OFyayjIkVtdJEfFyKHUvx0YuNDa9ZY1ULPHjDVz5sTMcXCHLLXF8CRSqQxZx yPbmU8kbwCFkiFQyQXCJENApzHJgDB7gZY5fJBMoSP U4VwL4DKZATX1IXYWlRLPymKTjKKKwARQXBZ4JABvcMIL3IUSmbdOghACpEBizWE3ZEPGtjqArMiLlQZ BSDQo+At4NOP4di6WeNCrlPQKhMG0nut1XUKaBKmYkY5V4fRWrF7E3IZicRt1IKRXbTHOjZuNoBAJRAX sqFM0IOP9orjT9DD2KbDXhOALtUUMgcOIwPUe4A60y wKYbLKznOI0PTOD+Tori+Vp9YCPLwIIPxXIIjKyUeSHEYJxFbA6DwI1QQh6LbD7VsXG29fNrbheUgLCrk FF4UCD0zTOGtAAPNBW5OeGXvoE6xxkTqXdJnECZMWgLiP48cgDMzFSWpKCAbRLPoBm1ILRHzQ8LbtuRd kNyrdhPkILLdDJMSMU4UGChsxdEpaSZhaQfsNM31bS sjIY4RVa5YBcAaQB5vbn5DmGLpZc3VYARmLV4HABXuDONmOWOwOHC8VZQbSrVfCPzpDJVmXTAiFZE4NQ SdZRYzCE3EJcHxHMVuKwp8OhgsCCRyQWVkta2OWQJrRNKkBGM3ZmVhSRJqOGUiGXcgFGQoZPBaOLW3CJ DdUYFsHH8UGuLjVWMsBIN1MPFjIBCcWBHsxc1XREOu XCPpXNu7CSXmHXXlQEHpTXlyIBQwOTJ8RzEwMSHhPTWzUV8PCnLhWWAjTSw5NTckQPIgGIGgqe4YHUIs YIMuYbX2OcIaYMEmAXIhAKvzENMhOAEoIUXwDGKnFMDgXN7YMsVvWEBfMUAtORJnCFXxIBKoad9VIEUh MNVtHsC3UVRxIPRtDOLcGQrfBWEoDLX1RVC7MSPhFX RcJD9CBfQbXDVoHUybGjMwWABxFFNseo9RCJBbAVLhWZKqHSHhFQDiOHYvKPkeNYOxZINeGzLuNXLwHP KqIL6OFrZfUJYbLfHqODUnXWGhECZjjk6ONRLwIATzSaX8CzFsTNHdATLoUJbsMFJrPIQpJZBiSCCyBS VeZD2UKlPjUBGuOlC8RSwjRSVcJVKpvp8JBINkSZMp YcysGAAqXULhLSIoLQuoIFEcLXIhHCV5ADYeKCGcHM0PQmPsNHRgExUgIMBcCMPeTMXjyy2OVBBvEQAw PGHlGsTuLCNjFPJiPLllLFUbUUJ3AAZcFGLkTGCqXP4OBvRjUFVaQzGzHtKlEVTsCEZbdt4GWZApRZCy FuGmBdQxGZCpFPTnBQmiKPMtELC9CQQsTHNuNVUxBJ 0NOtOiCPRhHqtfFdhzXUJvMKHhhw3CNHFnHIVjLhAeCoNtGEUzLKEcPSykTCAbFFR4QPIvGQZdTOSvZS 3EXhOcCVXrMst0TGFlDAMmBYPvmg8OBFFcEKUkLLD8HTVqCZFjYQXoZMncPWVmMVM2HjN2BAEgRQGaIH 5XKnTzDOdtDFTQFoc8HFwfE0p6PXMkMT0CM2Ywc2Xp FxSrLERHBMdyOX1fuxYkFTTyLe5HF8eOLlh3TuLyDSToGTFxQNwaLWG9WGP0WMx8HIQ0UfrbTrS8SV7c XLslYQDuZDJ8LEG5JCLhQzqyJuGuUEz0UghuZLVnIOwjChJfGN4LFw1QHkS4XBH1bXGbUq6SMjr5VfGE [id number]= ID Date Data Source [id number] 08/30/2020 04:49:[address] [facility] Name Value Range Interpretation Code Description Data Kiana rce(s) Supporting Document(s) Leukocytes [#/volume] in Blood by Automated count 7.8 10*3/uL 4-10 [facility] Erythrocytes [#/volume] in Blood by Automated count 3.84 10*6/uL 4.6- 6.1 L [facility] Hemoglobin [Mass/volume] in Blood 11.7 g/dL 13.5-18 L [facility] Hematocrit [Volume Fraction] of Blood by Automated count 35.1 % 4 1-53 L [facility] Erythrocyte mean corpuscular volume [Entitic volume] by Auto mated count 91.4 fL 80-96 [facility] Erythrocyte mean corpuscular hemoglobin [Entitic mass] by Automated count 30.4 pg 27-33 [facility] Erythrocyte mean corpuscular hemoglobin concentration [Mass/volume] by [facility] 33.3 g/[facility] distribution width [Ratio] by Automated count 14.0 % 11.5-14.5 [facility] Platelets [#/volume] in Blood by Automated count 237 10*3/uL 150-400 [facility] Differential cell count method - Blood [facility] Neutrophils/100 leukocytes in Blood by Automated count 65 % [facility] Lymphocytes/100 leukocytes in Blood by Automated count 18 % [facility] Monocytes/100 leukocytes in Blood by Automated count 5 % [facility] Eosinophils/100 leukocytes in Blood by Automated count 11 % [facility] Basophils/100 leukocytes in Blood by Automated count 1 % [facility] Neutrophils [#/volume] in Blood by Automated count 5.18 10*3/uL 1.8-7 .0 [facility] Lymphocytes [#/volume] in Blood by Automated count 1.36 10*3/uL 1.2-4 .0 [facility] Monocytes [#/volume] in Blood by Automated count 0.39 10*3/uL 0-0.8 [facility] Eosinophils [#/volume] in Blood by Automated count 0.82 10*3/uL 0-0.5 H [facility] Basophils [#/volume] in Blood by Automated count 0.04 10*3/uL 0-0.2 [facility] Nucleated erythrocytes/100 leukocytes [Ratio] in Blood by Automated count 0 /100{WBCs} 0-0 [facility] ID Date Data Source [id number] 08/30/2020 05:06:[address] [facility] Name Value Range Interpretation Code Description Data Kiana rce(s) Supporting Document(s) Bicarbonate [Moles/volume] in Serum 22 mmol/L 22-29 [facility] Chloride [Moles/volume] in Serum or Plasma 105 mmol/L 98-107 [facility] Creatinine [Mass/volume] in Serum or Plasma 1.24 mg/dL 0.70-1.20 H [facility] Glucose [Mass/volume] in Serum or Plasma 100 mg/dL 70-140 [facility] Potassium [Moles/volume] in Serum or Plasma 4.1 mmol/L 3.4-5.1 [facility] Hemolyzed Sodium [Moles/volume] in Serum or Plasma 137 mmol/L 136-145 [facility] Urea nitrogen [Mass/volume] in Serum or Plasma 22 mg/dL 8-23 [facility] Anion gap 3 in Serum or Plasma 10 mmol/L 8-15 [facility] Osmolality of Serum or Plasma by calculation 287 mosm/kg 275-300 [facility] Creatinine/Urea nitrogen [Mass Ratio] in Serum or Plasma 18 [facility] Calcium [Mass/volume] in Serum or Plasma 8.5 mg/dL 8.8-10.2 L [facility] Glomerular filtration rate/1.73 sq M pre dicted among non-blacks [Volume Rate/Area] in Serum or Plasma by Creatinine-based formula (MDRD) 61 mL/min/1.73m2 >60 [facility] Glomerular filtration rate/1.73 sq M pre dicted among blacks [Volume Rate/Area] in Serum or Plasma by Creatinine-based formula (MDRD) 70 mL/min/1.73m2 >60 [facility] ID Date Data Source [id number] 08/30/2020 04:57:[address] [facility] Name Value Range Interpretation Code Description Data Kiana rce(s) Supporting Document(s) Calcium.ionized [Moles/volume] in Arterial blood 1.19 mmol/L 1.13-1.3 2 [facility] ID Date Data Source [id number] 08/29/2020 02:32:37 PM [facility] Name Value Range Interpretation Code Description Data Kiana rce(s) Supporting Document(s) EKG [facility] JFWHAm2lFzOYHrLac8IyBbGfBQEjGT3plro0M3X2rXHeH7MfiQBdm2ijU0KeS1PhBWGpXGRBHG7QlMSf jb2 [file] tlvTK4mw0UqCPFSj7lBBTj7ZaF4OoYR+FLACO/LJ6yR4R+w/joYkUeLsWFKLObBbv4z0Qjp1r5I8XPvPfLb 6BU1Vg1MYwbCgrKZnsG1jC7Ns5wJfuoPX7hI3QpSaTM+MEMeZBEQIVi2qda3wU41owrTv35DQ7AMFZnC IJG+A4/KLJSUqi2K0viA4piqK+CMwwfT4epohAIWeg yXX8scerGayGY+wLPO/nU5tCJdlc9xbTE/p1vp1x+B9faYGs+N2fw+/3MB/rqH/4m6qtenkl0p4Yy3Tc 0rlK86ytqadrxSmERhKwxk3lp+J3hZfK1jd8tBwkt/m5m5+7+ppoi4u7aMtoa/m5m5+3hCZ1va45pk1C yhe6cuecbdIorJy5jAP6rw90p16guwp4f6gldfJdbU 86sQW1mw24k91kdys1y8jqyewgmK78mQZ3me48be6Jcvf3i2wwrhBoey7pmVigO5N8U/9th8MBYXh/// p7budlTIe2YLT1sofxskx8FGlqVdidezcoCz8AKW3icio9TSoQ/iWghZd6YEnZ8kD05C50Ir7RzzB/oV /Zk2SZTLsSX2V7RsLANnIUUBeYsE5ZoeE1vH4yN00N jPcaFWx8V2UUZs7lEuIIvDPnyuP0rieb8x7huXX5lZJ3vvg7wKj8uqX9doxrmdGx3Ruz3g7zBZ9yh8/c dt8Tu8KLjaGktb9G62Sa4SbEsUB8uq/0xVnmaV14ut1y0N/h/Vq149t73/F+e77f+Kcp4bVLG8578VVz XYa+Qd+m64S79H07vf2nF/K+Zk8TlGF0N+iv8MJbFU DVW0Db6cM+Ib3qX1f2Sk0X3zdPTWNt7Ad9QleG32ekt9Dg0On2Rp1WF2Oa4D1jD0r5ri2cFCrkqO/Hzh 68tHem9G5u9o2804fDFpjD8mzg/ski4LgdF5nIG/REliCm0S8kA65nfFzn9D/cd55+fc+lLUM/xkmjdk LdeAvhsMmeZhkVtIS09EUsqldBJkyJvRA12unIy1v9 1cv9DLuCAO+X15PPWu/k3XraO4jss1ttwwfitA/L8q2va/nez0k2aH1LmvTshigWbKN9stPC7k5H05x9 M6K+IZ6soTJYGh/3qvKx/9Ywzbc544XhpRbTduhOj1sbppuFIpL/6BYmSmu4kr2fO5pNrcmsWSOG5Ql4 E/i36l8cZ3eFwI/geh7ur5h63LGAgfwomDb28TipFH kd+g69QW/Qo/8u9N+F/hqRebu734p5duV+KXnB79wz9ra57rCE5duvDAmQ3ixbRM7SdjYreP7Q55/xOU 5ALXNT9gYd7I/oJ/QT+mJ2by9w3/0xzR7lUo7Zna2T7HfL5zr5GcqGClvkcO+sthQcc9ypclnL+nHsCf 9K4V8p/RiHa2JclmX+lcK/XefJhpp9Jp+qs1V3278K v6qyQW/AX79oxG3MqwYU+yrxk2itur6R2H5xv9X7B+rbUN+G+jbUt6G+wRHnkQlcSPdKv8O+BbZmjW0B pmXhontFioyrfRkW4S532bTIb+4ka85aE+jPeKX9+Bvaj7+hvUNvj3+e5U2C7kQ22Up1N/vnfa1FNK9V YrB3l1Bf7oWwtef2lHfdJfvZQGE1/SrbaZMs1n0hMa Md/tUuN+si5A15Hv8Vj2p+X+uR9N2ymdx646JtX+dejq6lzQJsIv5MR9GmrRzyVYfKfiZjev6Qh6iyIa 8qbZ7+1S5D7/q5l6i21jgrs2B+ZhZv7I8g/ZXuLqjAUI028BGwGR6Xq9W24Ilti7PvEKJ//Hi2pfQCPS qHfkA/oJ/Qn/v1uuMc7eQbd8WG4Gh8Hn4529G/Tf9q z6Ld7MokQQbF7hB97Zi1H/xC37S2N+q9Tg42lg60/asqC/BZxS5qwG/Hsou7Wo8ktT5U1p+F+Xdh/l3w Nix4hKJ/V4QoXTR3WcuMTI7wUB+vBYc4zvPz5jRPO/QKvULfoG/Qn/fbrvN+22XQG/QOvUM/oB+4/vGf 69Z620g+VZWf+m3PcC8b+KsG/yqYs5djdou2tli+qo G/auCvmnTc9/wtRWc0a40mP0HF8Kq8S/oFPepb/oYHm5LHe8cybbf2fhs/qsG/avCvmqK+1jY26I56z6 1kH7TH0Pl4Y/oF/gVmNen7GLw/zbU40Zkv/yf0KkoaV+2x5D83Sp3EiaZi4Ff5Ub0ywuf8als+qoG/av JbMsvcJc3ogj8uNd32/pr240WtiQ82T/5Vg3/V+vke hY5E16X13C92v68pA8IU7B699TK/mqlfz/zYkr/YsvWXe4x+x9d6axydh7NpUyqH7Vq4z7WE4bwI7aG3 6A16g/1Si15nInkVRqvSx/tz9jHkpf65/+Hrmp/5qPkF/Zl/d5D8jiFpO/rdw5Mg7d7nbqSmQ/VR3yob 5MwxH4wd5kentq7x2Y+O/doxn8629La9xtF/lfcK/y fLTSarvzxKQfD619hjt3CgaocYm1jzIDe/Cobe0H8e1pphjnu/tbJeyV+lTYq/dapUv3QeMswhK/K+d3 33MwR/VdcP/mrmcwZ/miwde41da8Wn1/cgi4TTu+bi4pHywmMJWmMY5UhKyw/eHajiuowWPwIwS4pvSA ueaM/shav5jma+qoG/wlOg1ic+IwjOe07w4ACgRB+y aqBQabA4mRT/4V+18q+yjPEK/MMFv6JGNiYdBo94NHkyAev667E/hX/V4F81+FcN/yZEj2TdZ2H8X/06 37/9Ot+//VLoFfoGfYO+Q9+hP/Du57vefbp6q29OR5Hkxlz//lW/jr/XneBkjdjGOz7By2/Q8V00ELfo L/0r6Sp35kBi82W50B//3MFfdXHoHfoB/NQm6WAM/c J9D7/R07/sYdkZboHv6jPLR1Gv5QgwB/Sor6K+ysyw0sjckc17g4A5Tv6/xucO/6rDv+bgoop8nx5+qo O/2lBpOubi0rXuldl77Qsgsd2EI30E9V155fidyiodp9P6fDv/bUGP/gv+qoO/6l2gF+jRf/wBk7n6Hu vLdsrne7+kcfQOfedH7Qr2O/4+6rtSf/iNOD1S/Ekc Apvv0Dt19+iLv+dVtwOI13n2yU0Y/bink798DGSPt7XJi1urs87tuzp0Ez2m3Cw7zE/4qw7+qtuEfkF/ +LruqK+avriu4LY8Qw2QQ+8472I9E0Eh2Tz/lb+3C+XzftO/2uXHv+1++Jzuh8/sEtBd4H/ojz/Zx/En +7igF+zOhnJzsTe2Ef/Do29VNihbRTvyR3sHWpbdhr xYPmZnMLsLZ3KE+IahrB4FdvlI02wrtHS3mpjl16/uQiijO11CN/Cv+jzf+i3dk43w613+sQFsOn5/vv d9EAPquVj4PXq8PLv4PEa3OLl0WB+n1nbeBW2uLhnHlywM12YqdNZ4UnleNkbPrdcj0I2o76Z5G+q7Jv VlB5ofM+w6/IZdF/ZObFNh0Nt4t5+26/Xrwk1JbiLj FXvS4kD28Ak9K/oJ/YSe+wDP/Gvwrwz+xIpxR5gn/NmX5Kdn2F48Qv0U8jU00BQz7Y9g2I8n6O9uxL3f 0anP49TH3GXS+eFRfnLWgLO4SL5z4N0X/JWBvzLwVwb+udXzXkzcT99z7I/1vG/Mq2lcp4Wn/XWmZ3+d 6fn+buLk8ubsiH1I9ZpIBf5+/uNFzm2ESMbiN9/Rlv 9PovL9haf7Ibawmw1PNEh8Tjyxl5fuJ+D6A/eN+w1rcdy6QqU7t64+/hilre9bI+cH058492v9G6g55J b+Va/beM6u20wu/WKDrvUzXlk/49W2351nB/0q3Bx1hz9Bd1QffEf7oWfnBOgJMcJg3YumJ/QdeoPeoH foHfoBPeprqK+uxiv4RddiL/414D3rZ+gFeoVeoW/Q o75+vn/Nz/e++VkvMz/rZebn+2zs7hFuX3sv/6Z/7hogP4vN/3fboR3rHB8cIDudl8+t2J25Iy/X084H 5qY1K92CG3yNHmiN/zKmPg5hhre02+IdUOvjg6Oex+wHgs94doOMXmFb9/Myomc4JyuRvXtH5QQwfkOb JFnRm97qPVQIEF6nzMr3UCKwIc6O+HeTynWsnzJ69o TEU+7n+SfGq/Svriqf+s1zZ8kRy7dsVJ3c/go70HrResKu3Dj+lp5sI2fMd50qp/RyaHZ8Z8Qbnzw76S 1Sp17X69E22YQ/nN5tDG67aO/fCmrPmSPk1Ox8751h+688/asqC/NLeLCn0I/smg0EJ4+Ov+UX1Ca5Op tAhwmugT0bFut1hE/4/Xm/Dv/K4V85/CuHf+Xgrxz8 dAV84FY+8IpemYeUAnLOPzftQCl7y15ip+yP8XG2JK4mN//K4V85/CuHf+VDF7RkZdh3Z9/97WFbPeOV 8sywHQr6Sl+5I5KrXYkNgkY/oJ/QT+qX2HffiY9t9A4YClFX4XP21Dh5x84CswLK+jbUt6G+ArUltV2U fbE+2Z8BC36+VZXX4/94+Vf3+EeaR5M1bV+8n/VQ7w L92R/r/htE5p4fm9Ky/dMfZ5l4Q8p56fJJ9117ddG5rn4yeSR9gFbji/SZ2peik0ElhN0cR1v0+Ino/8 qhU5cvua5r3G7sDkmCfASf0Hs0Tp5BtrN/oZ/QL+iFogm9uwoL+NdEad4jh3Q1oluNmrj44yc/yh31dd GUPN8WyU43imWDOU3//qT7mY/nu4inffFfX8n+9YH3 O/B+c6Ap2Wt3AZwBP4XB30J05HSsTNpVJ+MrlNe41V2K5mXJuz4jryJuuCQ9ovhhB3mcheY4GxxgxL+w GagC31BWtRBsO09GKqB6K/9b7YqcL7Z9NM/kHl9Vkcp3nv41/1e5L8mTgAXy4Vj6Ud3os8G2eOX1Sbfi Fsar9K+wyUrb9Iia/Ru+irbUPlvdH6fa0T38+dGP63 zvj+uFGgPA2M/554eEfmKxdzS0xIBsD/W2T6GtfR7SWLpgjSxyS/QD+onrTzvPtvCc6+rNi1nt8PK9wK 46WgRBvysrdq1Ltm52rJF+laQ+9rlV1Ke4Qd6YfrV/oZ/QL+jP9+EJj29f1FzgNbOq95/8f8bi3Gl4Ek qNCsvqLQrU6dV34D11Xs5GhwY/oV/ERm4ywIBtcHGH V3HO7Qsv+KvRUN+G+qZ/lfZseL/zB711x/dqAS7lkpKP57QE82+Sqfy9GwEzmr44xmzQC48fhh8Mkitv iPNQI/inlun4SB/fv/m34V/VNXt+/6Y+js5a6xx6vv3Lg/bz/Tu6QW/QO/QOPerbB/QT+zi5IuOV/yrt dRwhGBevyx6X2hpntc0rhmJYdoIh+DIGvnp31DaKf6 7/PMygN/z+jM/Are5iMYYWM4HW9Qh7X7bAv71al+QcBjot1Mp8Rw6T94K/6adZZN0/8+/z5r806LO6/N 5x/YHrD+ub0HL8Lk8Ym6nWeTelQ2WdggoK382udP+NgflooP+Hz80cnR7275V0Ua+q2j/8u8H1UDTU8O i/A+15oD3n/keqHzkbk7CXdka/6F3pAsQdgMXjhLqB bxZ+4Lj9q+HDmes9Ud7gGx3T8z/v/IHz4s4Y3O49whfthQv1q0/ZtLyv3/qZ1/HSRcd6j9Iu1DdX4584 YaX0o8y1Xb5M/nSfbqraf9hJSmyk0HED+YcMUjyWf1Q39Wr/qsao8K/ZpqDi9kyZ/+dw1whg4U5oS3w/ KttG+zd4ST3Ba/477I9Q4hPDs24isahwzB95JU/Tnu d1QX++9+x8ovimeaBx2Y89Aa0ujzoSTwaVRopMQweJKfiGUyuLJatQZouYF+c1cd+Y1sh7xuY6cclN4U gpfS8mckt3xvn+aoK/zdRqVqzkNy8qfs+a4K8m+KsJ/rdUl0pb9Loaq2H+jfqz7usee3K+oswybZs9ip w1iIh2FEUr1Y10Gc6Xn1Q99L26uC2VG9/+ExQ1b1VP 9Md/eatgpOknpDtkeK3xM/2hcJnssAJ7Db/1mD02bv6tY/vbJ/a3T+ple5meIFpWP9Jg0Y/oF/SHv5rg r2a/oBfoBXqFXqE/3wuzn/FqJn+3v7Qz0Na0M+/QD+oN1YN6Lz7IZvJ860424CyfKpL5ZjlrK7z4rWp1 /saEfzWtQ4/2bGjPhvZsaM/pzuc1p4nN52u/tcNvTD u7phNVx3g//Mj9G6rT/nagI5dOYr131WV/NcFfTfBXE/oUOA25xB8TnH5PC/tjpw/oB/QT+fd4bo5kP8 vj7H+j43OxmZgyJDqN/uy/uaOnP7heG+5n2El0FP/4rpWVdCN5rzjF4WP4Ip0D/vCTcx5+cs4L+rPePb H/ht0wA9QYa1vsxcu8lxs+aoK/mth/NbH/amL/1ZyY zczir4p0mNF+xfrgnGjPE+66iV1grZiX8znGymy/C/YtcI1SbAbju4Petcww0Vkndpu6HsotDi4X+u/C /Egg Smeller/64z/y74Vwv+1irXsbUnuNrsx6+14F+tf8LeyGzwKHdG8tDp0D/oJ/Tn/W9rVu6uQw7jBm0kEj8d Qz9tNw69Mux+1YJ/teBfLfhXC/7Vgn+14F8t+FcL/t DRh1IC0DCePc57/kWQWc6lq5vn/Srer+W8xm2tkgyG+VjC20CY19SM26QSU/LNeLHf6Ms4R/oBPeqL/V cL+68W9l+nfci51Vrgzb48erqwliwnkiogtrnaffmraidguswiMhsJcghJK/EZFuIzLMRnWDg/uNrE9R [file] vpaaiyklotxtlbnybnyhekgvetrrbrovRcuNhxMapyph7OCesVA6iPxgDdRzWqCAYNPlC9G/0dkhTj4F ZOflR0wBwAUDrGICVdQqurHndLqPbX8jJ3hQzGZmpF bl3prQJROrBBvEKUYETTY5HvU4cjT/opsgS8kMjWL7qhQIQagTyHE5ooIQWhsEqMD8ugLVMthOhXN+0c rjSmpCG09c2WZDhVRRKzSbqbtmMeg0tEQajZuDRKOPJx/WgWWd1JpUqjMfG84+4IPIIDKJTCKLCHykys jtIPYYGnUvs0J+lorin/A+cbKx/QAtSpHKdQeBDXqy72 LoZlv8rGd8BAHESBkBAtzXVHdEEie9Kax9EjRoaswO+nmV1i0VQKUkeHYK+R3QvIwDR+oiEujlY+lv2g edxjWRrGQCOVrX5lkujFGallFAAxN/EhmY/gNBR086r+slOTGj1BpVPQc+TLDRzHTsK0RpY5mE6OZmcL VyrJRJQ0EGZD5wYo15Dd18FfwahicdV+dL1ZmJ0Nej 6W+pnybxqRxr/L5UnLn6FGjQrhaYyqrbd14ufYm869MYtUb/Rw122c6O5CnbY9eH+/f/ut40sq9667/J 4q2d5y4E5B7UOCO4g/5Re//db0Fh91+80/vH3+0YxuruEoK4ea+emXv/gS5rK82oIwbN0p53teO/vm2+ 9/Akx49875qFyuLpMdI2KOeT1/fPfNb9+++82Hj59/ lTw01swnihbC05+9omtWm2+/e//hy4+//cg64fgj8/tvv/r31Sfg9h9/+/j+y3fff/3QK4mbd5G75Z68 qgekWmBQpGQC25z80d91i4/78ddfv/3Llx9//aghE734/sGWc2283mR14203/hbV889/e/v+1Blys6jv 3Vefv3/74tuvf/PVu//r3Ye/fnx1hf7m+9W3//L2/b ggfbt7R+/e/vn93/qlbPt9+LRF999+8vO3D9/94tszTxa113y6Y/s59oYLe716+5fPv3/70ggbkkh0/d eff/Pk1ghO8/zTu/dffvv+9gNnzis67/Hd+2+/elno/zuQc4q1+S//ng8qhXd3f6+3lnhmP443Nl2lB/ 6Nn93+rY3povi8j9/86m/81T0J25/+7gfcbsh4jY2+ dcUw2+fW7s48k8vgp4hA+AlBE7s481/12qlpkt5dp706/3qT//i6B53tJRx0H/vrd5+///j2/u0wD783 +/Sb9xl2paZlbn3r6dgy/3l7Rur51z//+KreXg/76f1ficy+9+Y0l99xseoztu/0xZ//9G9/+Msff/z9 23//329f//medical sociologist//4/fvzL//swi907+/DDv//1D2+/+e L5B8ae8I5y//1en475/tRFWS2i3vYBd/7s1ZF/8/V/dTfiE777fc/+/Y945gUawKG02S5+E2ejH74gsK +//i0OgvegJ20/jF5sRW9WGzsJ+uErdndfo+G5urz9+peAp/T6cnz22xiydasTqP3tGDi6gq/+5S9hsc /eXib+9vsvf/l6cx9++0tSE28X1vlV9x4U/+L+Qxj4 2J1/Hif3T9/9tOhAnewgAevzi0IDHws4W/7pr//49pcf/vrp1V/Uj9kTZgu/9Ee+qNAeTKb/9Oob/M37 tz/86a8//uX//eE//sblt1E/vXw++/Mu+0+vvrHXaPL2+//n9ex/+NRznut6BOD6w2oyWT2zrk/+/J8/ /o9gs19TrK//+ctv/+TaYf1MpvvR6pNZN5/vWoA/0/ 7JtY1g++lrebDf/Hy1e7U24R/9+J//tQM9b+88ndvNn7/66Y6idXkOtllsg/cvIPi4YZl8q7967fbIU+ gv/uOH3/37T/5223noH/469456vha1/+O//9e/fQz4/s9//vHsm3b706/4UPv8bd//0aPMHpB4oDKJ6h off/zd//dME047ik/+7LaNcwMpE10nBS/yt//511eb +/7rg5cpz6t037z+5Tf/9cbhUUWf+/cnk74O0TzVKQTgyyY/+Sf3d6G+jT2b/PB///gmb3/+hqu9KSvL ttDm3r6no+Eo0xwgzl1/e5P+Un3e9Po9+/21WMnIrtxW3/mff/UUa7706/kfykQd8N9ndd/+/aG9L4n9 YsBfPGG9rbEbqMsramPhOpmAZJpuDIMyFac0SB1UuK NdOTEeA2T0LTOzym2nNJYxFTVfbJGyJfAsQSXFXQ3WsRPdYG9KPPd3TJLcMRIlUhXiODKposX6SUAoAZ TwRGOmU1AuduAezKXlEFCkMz0+BL8cm0LjYzLuAJSiBcx4ZA7YmOCjYV7UyVJltO9goiLgZ399hoOmFH ImVslfg2UsINrgVJLRLL5CXLI3UIX1MLEnLg6+ZW5k p2IxTdTmIRWqUpi4AV1PtPEnv1CiAZ5OD2LvSWLtOBXSRHL2g0YjYOBnjplqfopaL4SfVDK9nH1gEKP8 QFIaJSbnUHMdDRYtGpV2JkIuXQssGEHmTMPfECDcPDIoEUk7sWOwFG2CJ4FaCIRqLHTHGTYgfpDhUf0n IRDCQ9lOUoUFG89fEMHHAEDXXZLrUXL3DFZhNV4OdZ IhJJM0YVhLZZOVLVgWKIgkIkIan8B6QGWiA9RmVNUrelYkLVOIXCqxWqsxHT3xaKvmsoqmX0AleHJtVS GHOADyVSYjCEQlDIJmN3Dkj3G9F8WxMQiHLHPRKUzOERexDrP7j48ecgFXLFBwAXTnLU2+XW2ab5LxRf 3EHHEoAD5jjav8LE8JmFXcGW6YANfjntHkZ7owkhNd DnUbELORFW1uX8BenR62SAC+TxTvJI2waaa7oyIpHnGxXQPdYJKnNUFwGGjnZZMhGACrUZZsDNH0ZDW9 JWHjBaEgPUYxAub3GsmmFUMkRYQbpmORESJwBKQ4XbBoATKwBOAlIFYgUZovZXDsDBF3CmkpRSWnRJIa CO6yFwYhZBLbAHJeEMKgWsF5HrYrWfUTPYWcAEAwQT KuBhBbJETePQTeMAyvSLQmDTQwXEd3TRYbWQBqDQ7dQwEaCWHeFDEmBVNfJGFpOVCzazBRDDIoDMYiIT Q5WGEfPZCiSCGdLDiuYAGpWNHgOSB2BNCvGUDcEM4dOsIdMZGtWSW6InRqOXNnCBXmzwGAMBSjOOGvYZ S1KIBbZUXfEDCbXTrjXKPjVRIkMsY8ASKyTUKkCT8v LpPjVJBsLQF5VMMhRAAvKXXciqVSTNJqRMBgAYw1XrKrOXWvGXGvRKibONOuGQGrWFlwXNXaZQLlWG7q OhXeHELiEVKxLUDlSCPlYNTbueWBXTCsAYTdDPC6OvScETQcIPZfHHcxFQXzRRSdFHQ0OYCyOSRpYC3m CjAwMDAwNjcxMDEgMDAwMDAgbiAKMDAwMDAwMTYwOS GrUICaTXOqWWqpINSoBMMjLjX5XYNgJCWkKM3kMzMiBOWhRXJ6KEArNWDfNBFeckETQNCtVWSxAQCuKA S3GAUeWZFoDRd4fgZlhHWiEmq1Nz9MxQlgNAW3Jg7QtoXqTXKgIDPVAv3Mh549EACaDKISDve+PgpzdG JouRbiITBZOms4MRCIUSEND5A= ID Date Data Source [id number] 08/29/2020 02:29:46 PM [facility] Name Value Range Interpretation Code Description Data Kiana rce(s) Supporting Document(s) [facility] JSKKQy4tUrMUPfJzr8YrThKlLPBoUW2gvqx9I1M3ySTiU2IqyQMwa2ioX4TjZ1LqFTDiTRYJGD4OuPUx jb2 [file] a7yhJJ05Re+tapper helper+zlJySp6due3B3mqU5EDwytZmZfNgcl2G0sfO0GZKcxNiXdUhzkwGJXyec5T6t5S2B [file] Q0e7FXBkJFsjTG9qoxFaJHMuUebuDf1szQT1DIBxZejUVw7Wa6MrveQ9ekIhAnK6CCC6SfYiRX8Q ID Date Data Source [id number] 08/29/2020 11:32:[address] [facility] Name Value Range Interpretation Code Description Data Kiana rce(s) Supporting Document(s) History and Physical [facility] EWKTPu4pJuZWToSb01/OIGwrXDXbc9YnGByrVVr4SFyvZSQkG5PfXDY5fJ3qBME4NCkEHxCbXqWoQPUn lbm [file] ICAgICAgICAgICAgICAgICAgICAgICAgICAgICAgICAgICAgICAgICAgICAgICAgICAgICAgICAgICAg ICAgICAgICAgICAgICAgICAgDQogICAgICAgICAgIC AgICAgICAgICAgICAgICAgICAgICAgICAgICAgICAgICAgICAgICAgICAgICAgICAgICAgICAgICAgIC AgICAgICAgICAgICAgICAgICAgICAgICAgICAgDQogICAgICAgICAgICAgICAgICAgICAgICAgICAgIC AgICAgICAgICAgICAgICAgICAgICAgICAgICAgICAg ICAgICAgICAgICAgICAgICAgICAgICAgICAgICAgICAgICAgICAgDQogICAgICAgICAgICAgICAgICAg ICAgICAgICAgICAgICAgICAgICAgICAgICAgICAgICAgICAgICAgICAgICAgICAgICAgICAgICAgICAg ICAgICAgICAgICAgICAgICAgICAgDQogICAgICAgIC AgICAgICAgICAgICAgICAgICAgICAgICAgICAgICAgICAgICAgICAgICAgICAgICAgICAgICAgICAgIC AgICAgICAgICAgICAgICAgICAgICAgICAgICAgICAgDQogICAgICAgICAgICAgICAgICAgICAgICAgIC AgICAgICAgICAgICAgICAgICAgICAgICAgICAgICAg ICAgICAgICAgICAgICAgICAgICAgICAgICAgICAgICAgICAgICAgICAgDQogICAgICAgICAgICAgICAg ICAgICAgICAgICAgICAgICAgICAgICAgICAgICAgICAgICAgICAgICAgICAgICAgICAgICAgICAgICAg ICAgICAgICAgICAgICAgICAgICAgICAgDQogICAgIC AgICAgICAgICAgICAgICAgICAgICAgICAgICAgICAgICAgICAgICAgICAgICAgICAgICAgICAgICAgIC AgICAgICAgICAgICAgICAgICAgICAgICAgICAgICAgICAgDQogICAgICAgICAgICAgICAgICAgICAgIC AgICAgICAgICAgICAgICAgICAgICAgICAgICAgICAg ICAgICAgICAgICAgICAgICAgICAgICAgICAgICAgICAgICAgICAgICAgICAgDQogICAgICAgICAgICAg ICAgICAgICAgICAgICAgICAgICAgICAgICAgICAgICAgICAgICAgICAgICAgICAgICAgICAgICAgICAg RPJsCWRmZFLeOXYmUQIrXGTqQRXwUELfHPHaQKt7H7 qfYRMbKWSeNG0jZDq8Sj9+EZgHWrXlPIB4aaTihZ2JRL2ut0TrTSzoXQIav5DnGRt5AO3ZYVMaBHvnAK 4PLTclji7VZQInSCQtrRARt5gzDxZsYPI4IHJwNeguNF4FCNGrO8uzykJrBIUsRXODZQmfWKJHROutML MFCRWpKQBaHqAgYfNwVHRhHM3JBCOvN492inYhLE9N Vg4BHeMfHV6cxc4ZMaUmUEHuValSHim1VAntAR3XdWZorNCaKOIlAZGZUqLiN5xkd0ZsCpPoAJDZXAbj ME0Jl9EdpTCqBNb+Je9CGT0qq7UaYHjdZTEmKQ4lgj4KVQfHElFqU3BelXifOKgjDLLibGJEeVLmrREh nEinZPTErHFcIRYMBnKIWXM5DJTsScMvZiFtAiWcPO a6AXHvUC4wDTkrMI9TSVG1JTbiEYUgWKZsG6xJWfCoWZOvYMEerWflFA1EHeUiC0JvtfWsnOIoPOErTV INCj4+BQydvyIkFjbSZzOhAXDdn8DqQCn5CD9TZLEyWZzuAE5XNTLugO0oGVvvTE3YAmOuCPBzXQODQo JqQ43caKTsWWy4G1OvCeQbGFCsFrvsMWVdNJmrKmUj ZXMgWyBdDQogID4+ID4+INahFQ7NUPdlozUrYPKbIb2OSVZcSRCkOS5qJRAkQQPpB1F4xQtrVFORYsDk B3rwcydaIH4mGJToJ835nYnrehEbUJNqTFJnOe4FEUTlEDY5BAHesTBnOfyeCZGLZMeqVT8IvJHnKRC8 yQ8lILvbGBBvXRLtF7eGGvEjtImhGW52qPgbswYpuJ BdDQo+Qs1JHC1qa1MwRYs9xcSyJIrlBZCkYMgsWUHxGWPwABSrBCJ8TOC6DGRYCqTfVLOaWFInSAaiCK IrEBFyha0KVUJqZHGqEiI6DSHnZUCmSXUzYYatJQOdKIEpAAX1GSRtPGDrJA2TVgOiONJyIUVaHGalXI BwXWBuky4WIYOmSPNlUbAhERXiOBUgPQQiVHxtCYOa SHVyWYBqUZDyPTUjZL0KQaNmPRDkWQG6HwVeYCNiLECenj5IFAHmJFTwClO2RbAkMMTmVZXjVVdkVWFg XMVdYuNrIRQwBRWmMV7JIdNpOXLqBDJ0RhUrXSLkSURamr1DSAHfRRQuXBCpXVGmXZIrZGGtCFgrREJj TOB2AjI5GVJsISPkDD1JMhLzXKChBRQ8NlDyEJXfCM Vnia8ZPIWnETBeYVb7QVBkKGIqOTHcIXekVFTxXKH4OqOsRPHzABHiDX3NZgRnKNFcXRB0XDfjECByJF Crww5ZBLKnISXiMvW6GKAsNCYkDEFwXDesCDJdOAQ9PIClXOOoXJBeOT5KScSwTGBeLIoiSAQhEHAoRQ Rfrj9FEIGqBKFaZTHoQXFgWGKoOSEiNLxpUOFvGKC5 ZwffISYlVVAjCN8XFfQbEVGaPOe1ZSemHFZqPEHjlq1ZEFNeJJBzBOg3LHNoXABrADNuLZyuVNAcMYPb ASB6GILfQKPlUS6THsLkFDZaClC7ByMgVWQkMPEdfs8PFVAmRZDjRKT1GrOaSXAiFTLzCLdaJKZoYUAp SBWbTEEdNQNmNJ2NCbFhMFJoTqGiKqogBPKaTRYrgm 9IBBMgFMJvUsA7JLJqYNKzWOPnVYpkJBNwKTIbJQW1MZPkJKMbPV2BMmBfEGTaWvBtKEqhWRFhUWNbdv 3GDTYpDTSaWNR1RbYbWRXaGJBtAFd4vcBmcZXnEXp2QG0XG0XjjtGxYoTZKs0Hu121IYKsREYaWo0UW7 xpDm3vKOLlGAUSWg1QCKj9XLT5HMP0ENifS0K6YMZi KSU0GgH3Jdn1LsTzSYR4MmE+SUd4Xgw2ATHmMWGpNRJ7VfO2ZMXhURa6UZpoDRWySnmlSr3iXJGOYw0+ ADhmaGRglXdmYRSGWvD4MRD8PSrcGUEQRt1Z ID Date Data Source [id number] 08/29/2020 05:58:[address] [facility] Name Value Range Interpretation Code Description Data Kiana rce(s) Supporting Document(s) Leukocytes [#/volume] in Blood by Automated count 11.1 10*3/uL 4-10 H [facility] Erythrocytes [#/volume] in Blood by Automated count 3.53 10*6/uL 4.6- 6.1 L [facility] Hemoglobin [Mass/volume] in Blood 10.7 g/dL 13.5-18 L [facility] Hematocrit [Volume Fraction] of Blood by Automated count 32.2 % 4 1-53 L [facility] Erythrocyte mean corpuscular volume [Entitic volume] by Auto mated count 91.4 fL 80-96 [facility] Erythrocyte mean corpuscular hemoglobin [Entitic mass] by Automated count 30.3 pg 27-33 [facility] Erythrocyte mean corpuscular hemoglobin concentration [Mass/volume] by [facility] 33.1 g[facility] width [Ratio] by Automated count 14.2 % 11.5-14.5 [facility] Platelets [#/volume] in Blood by Automated count 239 10*3/uL 150-400 [facility] Differential cell count method - Blood [facility] Neutrophils/100 leukocytes in Blood by Automated count 82 % [facility] Lymphocytes/100 leukocytes in Blood by Automated count 12 % [facility] Monocytes/100 leukocytes in Blood by Automated count 6 % [facility] Eosinophils/100 leukocytes in Blood by Automated count 0 % [facility] Basophils/100 leukocytes in Blood by Automated count 0 % [facility] Neutrophils [#/volume] in Blood by Automated count 9.04 10*3/uL 1.8-7 .0 H [facility] Lymphocytes [#/volume] in Blood by Automated count 1.30 10*3/uL 1.2-4 .0 [facility] Monocytes [#/volume] in Blood by Automated count 0.70 10*3/uL 0-0.8 [facility] Eosinophils [#/volume] in Blood by Automated count 0.02 10*3/uL 0-0.5 [facility] Basophils [#/volume] in Blood by Automated count 0.01 10*3/uL 0-0.2 [facility] Nucleated erythrocytes/100 leukocytes [Ratio] in Blood by Automated count 0 /100{WBCs} 0-0 [facility] ID Date Data Source [id number] 08/29/2020 06:01:20 AM [facility] Value Range Interpretation Code Description Data Kiana rce(s) Supporting Document(s) Platelet aggregation ADP induced [Units/volume] in Platelet rich plasma 282 PRU <208 H [facility] (NOTE)<208 PRU Therapeutic range fo r P2Y12 [id number] PRU Low response to P2Y12 inhibitors ID Date Data Source [id number] 08/29/2020 06:06:05 AM [facility] Value Range Interpretation Code Description Data Kiana rce(s) Supporting Document(s) Prothrombin time (PT) 14.3 s 12.5-14.9 [facility] INR in Platelet poor plasma by Coagulation assay 1.10 [facility] Routine intensity oral anticoagulation I NR is typically 2.0-3.0. Target INR must be clinically individualized. ID Date Data Source [id number] 08/29/2020 06:38:51 AM [facility] Value Range Interpretation Code Description Data Kiana rce(s) Supporting Document(s) Troponin T.cardiac [Mass/volume] in Serum or Plasma 0.22 ng/mL <0.01 [facility] No Significant Change since last result called ID Date Data Source [id number] 08/29/2020 06:38:51 AM [facility] Value Range Interpretation Code Description Data Kiana rce(s) Supporting Document(s) Bicarbonate [Moles/volume] in Serum 22 mmol/L 22-29 [facility] Chloride [Moles/volume] in Serum or Plasma 105 mmol/L 98-107 [facility] Creatinine [Mass/volume] in Serum or Plasma 1.14 mg/dL 0.70-1.20 [facility] Glucose [Mass/volume] in Serum or Plasma 111 mg/dL 70-140 [facility] Potassium [Moles/volume] in Serum or Plasma 4.3 mmol/L 3.4-5.1 [facility] Sodium [Moles/volume] in Serum or Plasma 137 mmol/L 136-145 [facility] Urea nitrogen [Mass/volume] in Serum or Plasma 22 mg/dL 8-23 [facility] Anion gap 3 in Serum or Plasma 10 mmol/L 8-15 [facility] Osmolality of Serum or Plasma by calculation 288 mosm/kg 275-300 [facility] Creatinine/Urea nitrogen [Mass Ratio] in Serum or Plasma 19 [facility] Calcium [Mass/volume] in Serum or Plasma 8.4 mg/dL 8.8-10.2 L [facility] Glomerular filtration rate/1.73 sq M pre dicted among non-blacks [Volume Rate/Area] in Serum or Plasma by Creatinine-based formula (MDRD) 67 mL/min/1.73m2 >60 [facility] Glomerular filtration rate/1.73 sq M pre dicted among blacks [Volume Rate/Area] in Serum or Plasma by Creatinine-based formula (MDRD) 78 mL/min/1.73m2 >60 [facility] ID Date Data Source [id number] 08/29/2020 12:43:29 AM [facility] Name Value Range Interpretation Code Description Data Kiana rce(s) Supporting Document(s) Heparin unfractionated [Units/volume] in Platelet poor plasma by Chromogenic method 0.43 U/ml [facility] ID Date Data Source [id number] 08/29/2020 01:11:00 AM [facility] Name Value Range Interpretation Code Description Data Kiana rce(s) Supporting Document(s) Troponin T.cardiac [Mass/volume] in Serum or Plasma 0.14 ng/mL <0.01 [facility] Results called to and read back by CLOETTE PHILIP RN ON 8G AT [phone] [id number] BY [id number] ID Date Data Source [id number] 08/28/2020 06:23:21 PM [facility] XR CHEST FRONTAL ONLY [id number] RESULTI nterpreted by:Colby Oconnell, MDPROCEDURE INFORMATION: Exam: XR Chest, 1 View [...] DOCUMENT HAS BEEN ELECTRONICALLY SIGNED BY COLBY OCONNELL MDThis document has been electronically signed by Colby Oconnell MD on 08/28/2020 6:23 PM Name Value Range Interpretation Code Description Data Kiana rce(s) Supporting Document(s) ID Date Data Source [id number] 08/28/2020 06:40:04 PM [facility] Name Value Range Interpretation Code Description Data Kiana rce(s) Supporting Document(s) Leukocytes [#/volume] in Blood by Automated count 8.3 10*3/uL 4-10 [facility] Erythrocytes [#/volume] in Blood by Automated count 3.91 10*6/uL 4.6- 6.1 L [facility] Hemoglobin [Mass/volume] in Blood 12.0 g/dL 13.5-18 [facility] Hematocrit [Volume Fraction] of Blood by Automated count 35.5 % 4 1-53 [facility] Erythrocyte mean corpuscular volume [Entitic volume] by Auto mated count 90.9 fL 80-96 [facility] Erythrocyte mean corpuscular hemoglobin [Entitic mass] by Automated count 30.7 pg 27-33 [facility] Erythrocyte mean corpuscular hemoglobin concentration [Mass/volume] by Automated count 33.7 g/dL 32.0-[facility] distribution width [Ratio] by Automated count 14.0 % 11.5-14.5 [facility] Platelets [#/volume] in Blood by Automated count 220 10*3/uL 150-400 [facility] ID Date Data Source [id number] 08/28/2020 07:03:47 PM [facility] Name Value Range Interpretation Code Description Data Kiana rce(s) Supporting Document(s) Bicarbonate [Moles/volume] in Serum 21 mmol/L 22-29 L [facility] Chloride [Moles/volume] in Serum or Plasma 104 mmol/L 98-107 [facility] Creatinine [Mass/volume] in Serum or Plasma 1.15 mg/dL 0.70-1.20 [facility] Glucose [Mass/volume] in Serum or Plasma 140 mg/dL 70-140 [facility] Potassium [Moles/volume] in Serum or Plasma 4.0 mmol/L 3.4-5.1 [facility] Sodium [Moles/volume] in Serum or Plasma 137 mmol/L 136-145 [facility] Urea nitrogen [Mass/volume] in Serum or Plasma 21 mg/dL 8-23 [facility] Anion gap 3 in Serum or Plasma 12 mmol/L 8-15 [facility] Osmolality of Serum or Plasma by calculation 289 mosm/kg 275-300 [facility] Creatinine/Urea nitrogen [Mass Ratio] in Serum or Plasma 18 [facility] Calcium [Mass/volume] in Serum or Plasma 8.9 mg/dL 8.8-10.2 [facility] Glomerular filtration rate/1.73 sq M pre dicted among non-blacks [Volume Rate/Area] in Serum or Plasma by Creatinine-based formula (MDRD) 66 mL/min/1.73m2 >60 [facility] Glomerular filtration rate/1.73 sq M pre dicted among blacks [Volume Rate/Area] in Serum or Plasma by Creatinine-based formula (MDRD) 77 mL/min/1.73m2 >60 [facility] ID Date Data Source [id number] 08/28/2020 07:03:47 PM [facility] Value Range Interpretation Code Description Data Kiana rce(s) Supporting Document(s) Magnesium [Mass/volume] in Serum or Plasma 1.8 mg/dL 1.6-2.4 [facility] ID Date Data Source [id number] 08/28/2020 07:03:47 PM [facility] Value Range Interpretation Code Description Data Kiana rce(s) Supporting Document(s) Phosphate [Mass/volume] in Serum or Plasma 2.9 mg/dL 2.5-4.5 [facility] ID Date Data Source [id number] 08/28/2020 07:10:57 PM [facility] Value Range Interpretation Code Description Data Kiana rce(s) Supporting Document(s) Heparin unfractionated [Units/volume] in Platelet poor plasma by Chrom[facility].31 [facility] Date Data Source [id number] 08/28/2020 07:10:57 PM [facility] Name Value Range Interpretation Code Description Data Kiana rce(s) Supporting Document(s) Prothrombin time (PT) 14.2 s 12.5-14.9 [facility] INR in Platelet poor plasma by Coagulation assay 1.09 [facility] Routine intensity oral anticoagulation I NR is typically 2.0-3.0. Target INR must be clinically individualized. ID Date Data Source [id number] 08/28/2020 08:13:00 PM [facility] Name Value Range Interpretation Code Description Data Kiana rce(s) Supporting Document(s) Cholesterol [Mass/volume] in Serum or Plasma 206 mg/dL <200 H [facility] Triglyceride [Mass/volume] in Serum or Plasma 45 mg/dL <150 [facility] Cholesterol in HDL [Mass/volume] in Serum or Plasma 51 mg/dL >40 [facility] Cholesterol in LDL [Mass/volume] in Serum or Plasma by calcu lation 146 mg/dL <100 H [facility] Cholesterol in VLDL [Mass/volume] in Serum or Plasma by calc ulation 9 mg/dl 16-42 L [facility] Cholesterol non HDL [Mass/volume] in Serum or Plasma 155 mg/dL <130 H [facility] ID Date Data Source [id number] 08/28/2020 07:24:20 PM [facility] Name Value Range Interpretation Code Description Data Kiana rce(s) Supporting Document(s) Hepatitis C virus Ab [Presence] in Serum or Plasma by Immuno assay Non Reactive [facility] No serological evidence of active infect ion. If recent exposure is suspected, test for HCV RNA. Procedure Social History Code Duration Value Status Description Data Source(s ) Smoking 08/29/2021 12:00:00 AM EST Never Smoker completed Never S moker [facility] Alcohol intake 04/01/2021 12:00:00 AM EDT Ex-drinker (finding) comp leted Ex- drinker (finding) [facility] Smoking 03/20/2021 12:00:00 AM EDT Never Smoker completed Never S moker eCW1 ([facility]) Smoking 03/20/2021 12:00:00 AM EDT Never Smoker completed Never S moker eCW1 ([facility]) Smoking 03/20/2021 12:00:00 AM EDT Never Smoker completed Never S moker eCW1 ([facility]) Smoking 03/13/2021 12:00:00 AM EDT - 10/18/1997 12:00:00 AM EST Patient is a former smoker completed Patient is a former smoker [facility] ([facility], ) Smoking 02/03/2021 12:00:00 AM EDT Never Smoker completed Never S moker eCW1 ([facility]) Smoking 02/03/2021 12:00:00 AM EDT Never Smoker completed Never S moker eCW1 ([facility]) Alcohol intake 12/31/2020 12:00:00 AM EDT Not Currently completed [facility] Smoking 12/31/2020 12:00:00 AM EDT Former smoker completed Former smoker [facility] Tobacco use and exposure 09/17/2020 12:00:00 AM EST Never used co mpleted Never used [facility] Smoking 09/17/2020 12:00:00 AM EST Former smoker completed Former smoker [facility] Alcohol intake 09/17/2020 12:00:00 AM EST Not Currently completed [facility] Smoking 09/17/2020 12:00:00 AM EST Former smoker completed Former smoker [facility] Alcohol intake 08/28/2020 12:00:00 AM EST Ex-drinker (finding) comp leted Ex- drinker (finding) [facility] Tobacco use and exposure 08/28/2020 12:00:00 AM EST Never used co mpleted Never used [facility] Smoking 08/28/2020 12:00:00 AM EST Former smoker completed Former smoker [facility] Vital Signs ID Date Data Source UNK Name Value Range Interpretation Code Description Data Source(s) Body weight 258 [lb_av] 258 [lb_av] eCW1 ([facility]) Body height 72 [in_i] 72 [in_i] eCW1 ([facility]) Body mass index (BMI) [Ratio] 34.99 kg/m2 34.99 kg/m2 [facility]CW1 [facility] Heart rate 84 /min 84 /min eCW1 ([facility]) Respiratory rate 18 /min 18 /min eCW1 ([facility]) Body temperature 97.4 [degF] 97.4 [degF] eCW1 ( [facility] Systolic blood pressure 134 mm[Hg] 134 mm[Hg] e CW1 ([facility]) Diastolic blood pressure 76 mm[Hg] 76 mm[Hg] eCW1 [facility]) Systolic blood pressure 110 mm[Hg] 110 mm[Hg] [facility] Diastolic blood pressure 80 mm[Hg] 80 mm[Hg] [facility] Oxygen saturation in Arterial blood by Pulse oximetry 95 % 95 % [facility] Heart rate 82 /min 82 /min [facility] Body height 190.5 cm 190.5 cm [facility] Body weight 118.842 kg 118.842 kg [facility] Body mass index (BMI) [Ratio] 32.75 kg/m2 32.75 kg/m2 [facility] Body weight 250 [lb_av] 250 [lb_av] W1 ([facility]) Body height 72 [in_i] 72 [in_i] eCW1 ([facility]) Body mass index (BMI) [Ratio] 33.90 kg/m2 33.90 kg/m2 eCW1 [facility] Heart rate 121 /min 121 /min eCW1 ([facility]) Respiratory rate 18 /min 18 /min eCW1 ([facility]) Body temperature 96.8 [degF] 96.8 [degF] eCW1 ( [facility]) Systolic blood pressure 126 mm[Hg] 126 mm[Hg] e CW1 ([facility]) Diastolic blood pressure 88 mm[Hg] 88 mm[Hg] eCW1 [facility]) Systolic blood pressure 130 mm[Hg] 130 mm[Hg] [place] ([facility]) Diastolic blood pressure 84 mm[Hg] 84 mm[Hg] [facility] ([facility]) Heart rate 115 /min 115 /min [facility] ([facility]) Rechecked at 90 Oxygen saturation in Arterial blood by Pulse oximetry 92 % 92 % [facility] ([facility]) Body height 75 [in_i] 75 [in_i] [facility] ([facility]) 6'3" [place] body weight 196 [lb_av] 196 [lb_av] MEDEN T ([facility]) Diastolic blood pressure 80 mm[Hg] 80 mm[Hg] [facility] ([facility]) Heart rate 79 /min 79 /min [facility] ([facility]) Oxygen saturation in Arterial blood by Pulse oximetry 93 % 93 % [facility] ([facility]) Body height 75 [in_i] 75 [in_i] [facility] ([facility]) 6'3" Body weight 247.00 [lb_av] 247.00 [lb_av] [facility] T ([facility]) Body mass index (BMI) [Ratio] 30.9 kg/m2 30.9 k g/m2 [facility] ([facility]) [place] body weight 196 [lb_av] 196 [lb_av] [facility] ([facility]) Body weight 112.039 kg 112.039 kg [facility] ([facility]) Body surface area Derived from formula 2.40 m2 2.40 m2 [facility] ([facility]) Systolic blood pressure 122 mm[Hg] 122 mm[Hg] [facility] Body weight 240 [lb_av] 240 [lb_av] eCW1 ([facility]) Body height 72 [in_i] 72 [in_i] eCW1 ([facility]) Body mass index (BMI) [Ratio] 32.55 kg/m2 32.55 kg/m2 eCW1 [facility] Heart rate 84 /min 84 /min W1 ([facility]) Respiratory rate 18 /min 18 /min eCW1 ([facility]) Body temperature 98 [degF] 98 [degF] eCW1 ([facility]) Systolic blood pressure 115 mm[Hg] 115 mm[Hg] e CW1 ([facility]) Diastolic blood pressure 82 mm[Hg] 82 mm[Hg] eCW1 [facility]) Systolic blood pressure 138 mm[Hg] 138 mm[Hg] [facility] Diastolic blood pressure 90 mm[Hg] 90 mm[Hg] [facility] Heart rate 85 /min 85 /min [facility] Body height 188 cm 188 cm [facility] Body weight 110.224 kg 110.224 kg [facility] Body mass index (BMI) [Ratio] 31.20 kg/m2 31.20 kg/m2 [facility] Oxygen saturation in Arterial blood by Pulse oximetry 94 % 94 % [facility] Systolic blood pressure 120 mm[Hg] 120 mm[Hg] M EDENT ([facility], ) Diastolic blood pressure 80 mm[Hg] 80 mm[Hg] MED[facility] ([facility], ) Heart rate 91 /min 91 /min [facility] Oxygen saturation in Arterial blood by Pulse oximetry 93 % 93 % [facility] ([facility]) Body temperature 97.1 [degF] 97.1 [degF] [facility] ([facility], ) Body height 75 [in_i] 75 [in_i] [facility] ([facility], ) 6'3" Body weight 237.00 [lb_av] 237.00 [lb_av] [facility] T ([facility], ) Body mass index (BMI) [Ratio] 29.6 kg/m2 29.6 k g/m2 [facility] ([facility]) [place] body weight 196 [lb_av] 196 [lb_av] [facility] T ([facility], ) Body weight 107.503 kg 107.503 kg [facility] ([facility]) Body surface area Derived from formula 2.36 m2 2.36 m2 [facility] ([facility], ) Oxygen saturation in Arterial blood by Pulse oximetry 94 % 94 % [facility] ([facility]) Room Air Systolic blood pressure 110 mm[Hg] 110 mm[Hg] [facility] ([facility]) Diastolic blood pressure 70 mm[Hg] 70 mm[Hg] [facility] ([facility]) Heart rate 106 /min 106 /min [facility] ([facility] [place]) Body temperature 96.1 [degF] 96.1 [degF] [facility] ([facility]) Body height 75 [in_i] 75 [in_i] [facility] ([facility]) 6'3" Body surface area Derived from formula 2.35 m2 2.35 m2 [facility] ([facility]) Body mass index (BMI) [Ratio] 29.4 kg/m2 29.4 k g/m2 [facility] ([facility]) [place] body weight 196 [lb_av] 196 [lb_av] [facility] ([facility]) Body weight 106.596 kg 106.596 kg [facility] ([facility]) Body weight 235.00 [lb_av] 235.00 [facility]_av[facility] Systolic blood pressure 132 mm[Hg] 132 mm[Hg] [facility] Diastolic blood pressure 76 mm[Hg] 76 mm[Hg] [facility] Heart rate 84 /min 84 /min [facility] Body height 188 cm 188 cm [facility] Body weight 96.616 kg 96.616 kg [facility] Body mass index (BMI) [Ratio] 27.35 kg/m2 27.35 kg/m2 [facility] Oxygen saturation in Arterial blood by Pulse oximetry 97 % 97 % [facility] Systolic blood pressure 131 mm[Hg] 131 mm[Hg] [facility] ([facility], ) Diastolic blood pressure 85 mm[Hg] 85 mm[Hg] [facility] ([facility]) Body height 75 [in_i] 75 [in_i] [facility] ([facility]) 6'3" Body weight 201.25 [lb_av] 201.25 [lb_av] [facility] T ([facility]) Body mass index (BMI) [Ratio] 25.2 kg/m2 25.2 k g/m2 [facility] ([facility]) [place] body weight 196 [lb_av] 196 [lb_av] [facility] T ([facility]) Body surface area Derived from formula 2.20 m2 2.20 m2 [facility] ([facility]) Body weight 91.287 kg 91.287 kg [facility] ([facility]) ID Date Data Source [id number] 09/06/2020 07:34:09 AM [facility] Name Value Range Interpretation Code Description Data Source(s) WEIGHT RECORDED 214.07 lb 214.07 lb [facility] WEIGHT RECORDED 208 lb 208 lb [facility] Body height Measured 72 in 72 in [facility] TRANSFER FROM [facility] Patient Treatment Plan of Care Planned Activity Planned Date Details Description Data Source (s) 60 ACTUAT Fluticasone propionate 0.5 MG/ ACTUAT / salmeterol 0.05 MG/ACTUAT Dry Powder Inhaler [Advair] 04/01/2021 12:00:00 AM EDT [facility] EPINEPHrine (EPIPEN) 0.3 MG/0.3ML SOAJ 04/01/2021 12:00:00 AM EDT [facility] Alprostadil 0.25 MG Urethral Suppository [[place]] 02/03/2021 12:00:00 AM EDT [facility] Alprostadil 0.125 MG Urethral Suppository [[place]] 02/03/2021 12:00:0 0 AM EDT eCW1 ([facility]) Alprostadil 0.125 MG Urethral Suppository [[place]] 02/03/2021 12:00:0 0 AM EDT eCW1 ([facility]) Alprostadil 0.125 MG Urethral Suppository [[place]] 02/03/2021 12:00:0 0 AM EDT eCW1 ([facility]) Alprostadil 0.125 MG Urethral Suppository [[place]] 02/03/2021 12:00:0 0 AM EDT eCW1 ([facility]) Prednisone 20 MG Oral Tablet 12/28/2020 12:00:00 AM [facility] 60 ACTUAT Fluticasone propionate 0.5 MG/ ACTUAT / salmeterol 0.05 MG/ACTUAT Dry Powder Inhaler [Advair] 12/28/2020 12:00:00 AM [facility] SPIRIVA RESPIMAT 2.5 MCG/ACT AERS 12/28/2020 12:00:00 AM [facility] potassium chloride SA (K-DUR,KLOR-CON) 20 MEQ tablet 021 12:00:00 AM [facility] Prednisone 10 MG Oral Tablet 09/13/2020 12:00:00 AM [facility] 24 HR metoprolol succinate 200 MG Extended Release Ora l Tablet 08/30/2020 12:00:00 AM [facility] 24 HR metoprolol succinate 200 MG Extended Release Ora l Tablet [Toprol] 08/30/2020 12:00:00 AM [facility] Levetiracetam 250 MG Oral Tablet 08/30/2020 12:00:00 AM [facility] 24 HR Isosorbide Mononitrate 30 MG Extended Release Or al Tablet 08/30/2020 12:00:00 AM [facility] Hydrochlorothiazide 12.5 MG Oral Tablet 08/30/2020 12:00:00 AM [facility] Hydralazine Hydrochloride 25 MG Oral Tablet 08/30/2020 12:00:00 AM [facility] atorvastatin 20 MG Oral Tablet 08/30/2020 12:00:00 AM [facility] Levetiracetam 250 MG Oral Tablet 08/30/2020 12:00:00 AM [facility] 24 HR metoprolol succinate 200 MG Extended Release Ora l Tablet 08/30/2020 12:00:00 AM [facility] 24 HR Isosorbide Mononitrate 30 MG Extended Release Or al Tablet 08/30/2020 12:00:00 AM [facility] Hydrochlorothiazide 12.5 MG Oral Tablet 08/30/2020 12:00:00 AM [facility] Hydralazine Hydrochloride 25 MG Oral Tablet 08/30/2020 12:00:00 AM [facility] atorvastatin 20 MG Oral Tablet 08/30/2020 12:00:00 AM [facility] perflutren lipid microspheres (DEFINITY) injectable desai spension 9.78 mg 08/29/2020 08:33:29 AM [facility] albuterol (PROVENTIL HFA) inhaler 2 puff 08/28/2020 06:03:37 PM [facility] sildenafil 100 MG Oral Tablet 07/12/2020 12:00:00 AM EDT [facility] POLYETHYLENE GLYCOL 3350 142 MG/ML Oral Solution 07/12/2020 12:00:0 0 AM EDT [facility] Omeprazole 20 MG Delayed Release Oral Capsule 07/12/2020 12:00:00 A M EDT [facility] Metronidazole 500 MG Oral Tablet 06/19/2020 12:00:00 AM EDT [facility] Levofloxacin 500 MG Oral Tablet 06/19/2020 12:00:00 AM EDT [facility] Aspirin 81 MG Delayed Release Oral Tablet 06/14/2020 12:00:00 AM ED T [facility] 60 ACTUAT Fluticasone propionate 0.25 MG /ACTUAT / salmeterol 0.05 MG/ACTUAT Dry Powder Inhaler [facility] 24 HR Levetiracetam 500 MG Extended Release Oral Tablet [facility] levETIRAcetam (KEPPRA PO) [facility] sildenafil 100 MG Oral Tablet [facility] latanoprost 0.05 MG/ML Ophthalmic Solution [facility] Hydrochlorothiazide 25 MG Oral Tablet [facility] Loratadine 10 MG Oral Tablet [facility] Metoprolol Tartrate 50 MG Oral Tablet [facility] Clonidine Hydrochloride 0.1 MG Oral Tablet [facility]
[2021-09-08 11:04] VITALS: BP 133/91
--- NOTE | 2021-09-08 14:34 | RO ---
OPERATIVE NOTE DATE OF OPERATION: 09/08/2021 PREOPERATIVE DIAGNOSIS: Mature cataract, right eye. SECONDARY DIAGNOSIS: Floppy iris syndrome, right eye. POSTOPERATIVE DIAGNOSIS: Mature cataract, right eye. PROCEDURE: Phacoemulsification with a posterior chamber intraocular lens of the right eye (complex case) using 5 iris hooks. SURGEON: Damien Sullivan Jr, DO GIS DATABASE ADMINISTRATOR: ANESTHESIA: DESCRIPTION OF PROCEDURE: The patient was brought into the operating room and given mild anesthesia by the department of anesthesia by IV route. The patient was then given a standard prep by using betadine solution. One drop of tetracaine was placed in the eye prior to the prep. The patient was then draped in the usual manner. Lid speculum was placed in the eye.The eye was grasped with 0.12 forceps for better exposure of the cornea. A 15-degree stab blade was made at10 o'clock position. 0.3 mL of 1% lidocaine in a syringe attached to a cannula was inserted into the anterior chamber through the port site. Viscoelastic was inserted into the anterior chamber through the port site. A 2.75 mm clear cornea keratome blade was then used to make a clear corneal wound at 9 o'clock position. It was noted the iris instantly started to come to the 9 o'clock wound site, so we took Impex iris retractor hooks and inserted them through port sites both superior and inferior to the 9 o'clock wound site, then at 6, 3, and 12 o'clock position. Using Ignacio forceps and 0.12 forceps, we ran these iris retractor hooks, five in total, through each of these port sites. We grasped the edge of the iris at the pupillary rim and synched up in place with a stopcock. Once all [address], we noted that we had better exposure to the anterior capsule. A cystotome was used to start a continuous tear capsulorrhexis, which was completed with Utrata forceps. Balanced salt solution (BSS) in a syringe attached to a cannula was then used to hydrodissect the lens nucleus. Phacoemulsification was then used to remove the lens nucleus using a divide and conquer-type technique. After this was completed, irrigation and aspiration apparatus was brought into the anterior chamber and the remaining cortical material was removed. ProVisc was inserted into the capsular bag.Then it was decided to use an Sudarshan AcySof one-piece foldable lens. It was then dialed into place using a Song pusher. Once the lens was in good position, irrigation and aspiration was reinserted into the anterior chamber and the remaining ProVisc was removed. Using Ignacio forceps and 0.12 forceps, removed each of the five iris retractor hooks. Once removed, BSS in a syringe attached to a cannula was then used to hydrate each of the five port sites. Once the lens was in good position, irrigation and aspiration was reinserted into the anterior chamber and the remaining ProVisc was removed. Miostat in a syringe attached to a cannula was then brought through the 10 o'clock port site. We injected approximately 0.3 mL of Miostat into the anterior chamber. Once this was done, we noted the iris came down nicely with the iris pulling away from the 9 o'clock wound site. BSS was inserted through the port site and then the port site was hydrated. The wound was checked. The wound was leak-free. The patient then had the lid speculum removed once the wound was rechecked and found to be sealed. The shield was placed over the operated-on eye, and the patient was brought back to ambulatory surgery in stable condition. The patient tolerated the procedure well. LENS INSERTED: Sudarshan AcrySof one-piece foldable lens. PHACO TIME: 11.55 seconds.
== END 2021-09-08 11:07 | disposition home or self-care (01) ==
LOC: M SDC 08:29
PROVIDERS: ATTEND Ophthalmology
DX: H25.11 Age-related nuclear cataract, right eye (principal)
CPT/HCPCS: 66984; J2250; J3010; V2632

== ENCOUNTER 2021-10-11 14:57 | Emergency (ER) | payer OTHER ==
[~2021-10-11] VITALS: Ht 190.5 cm; Wt 117.3 kg
[~2021-10-11 14:57] MED LIST changes: -CYCLOPENTOLATE 1% OPHTH SOLN 2 ML BTL OD SCH; -DUOVISC (0.50ML VISCOAT/0.85ML PROVISC) OPHTH KIT As Ordered ONE; -FLUC100T PO; +FLUC100T3 PO; -LIDOCAINE 1% SDV 5ML VIAL As Ordered ONE; -LR 1,000 ML IV SCH; -MIDAZOLAM INJ 2MG/2ML VIAL (J2250 PER 1MG) As Ordered ONE; +ONDA-84 PO; -ONDA8TAB10 PO; -PHENYLEPHRINE 2.5% OPHTH SOL 2ML OD SCH; +POTA-151 PO; -POTA20TA6 PO; -PROC10TA4 PO; +PROC10TA5 PO; -TETRACAINE 0.5% OPHTH SOLN 4ML OD SCH; -fentaNYL 100 MCG/2 ML INJECTION (J3010) As Ordered ONE
[2021-10-11] MEDS ORDERED: DIPH50CA29 (15:04)
[2021-10-11 15:53] LABS: BASO % 0.3 % (0.0-1.0); EOS # 0.5 10^3/uL (0.0-0.5); EOS % 4.9 % (0.0-3.0); HEMATOCRIT 36.9 % (42.0-52.0); HEMOGLOBIN 12.5 g/dl (13.5-17.5); LYMPH # 1.2 10^3/uL (1.5-5.0); LYMPH % 13.2 % (24.0-44.0); MEAN CORPUSCULAR HEMOGLOBIN 31.8 pg (27.0-33.0); MEAN CORPUSCULAR HGB CONC 33.9 g/dl (32.0-36.5); MEAN CORPUSCULAR VOLUME 93.9 fl (80.0-96.0); MONO # 0.5 10^3/uL (0.0-0.8); NEUTROPHILS # 7.2 10^3/uL (1.5-8.5); NEUTROPHILS % 76.4 % (36.0-66.0); PLATELET COUNT, AUTOMATED 222 10^3/uL (150-450); RED BLOOD COUNT 3.93 10^6/uL (4.30-6.10); WHITE BLOOD COUNT 9.4 10^3/uL (4.0-10.0)
[2021-10-11 16:26] LABS: ALBUMIN 3.7 GM/DL (3.2-5.2); ALT/SGPT 28 U/L (12-78); BILIRUBIN,DIRECT 0.2 MG/DL (0.0-0.2); BILIRUBIN,TOTAL 0.6 MG/DL (0.2-1.0); BLOOD UREA NITROGEN 19 MG/DL (7-18); CALCIUM LEVEL 8.9 MG/DL (8.8-10.2); CARBON DIOXIDE LEVEL 28 MEQ/L (21-32); CHLORIDE LEVEL 106 MEQ/L (98-107); CREATININE FOR GFR 1.46 MG/DL (0.70-1.30); GLOMERULAR FILTRATION RATE > 60.0 (>49); GLUCOSE, FASTING 92 MG/DL (70-100); LIPASE 130 U/L (73-393); SODIUM LEVEL 140 MEQ/L (136-145); TOTAL PROTEIN 6.6 GM/DL (6.4-8.2)
[2021-10-11] MEDS ORDERED: MAGNESIUM CITRATE 300 ML BTL PO ONE (18:15)
[2021-10-11 18:24] VITALS: BP 135/76
== END 2021-10-11 18:20 | disposition home or self-care (01) ==
LOC: M ED 14:57
DX: K59.00 Constipation, unspecified (principal); C34.90 Malignant neoplasm of unspecified part of unspecified bronchus or lung; Z88.1 Allergy status to other antibiotic agents; Z88.6 Allergy status to analgesic agent; Z88.2 Allergy status to sulfonamides; Z91.030 Bee allergy status; Z92.3 Personal history of irradiation; Z98.52 Vasectomy status

== ENCOUNTER → 2022-01-16 | Outpatient (CLI) | payer OTHER ==
[~2022-01-16] MED LIST changes: -ALLO300T2; +ALLO300T2 PO; -D31000TA2 PO; +DIPH50CA29; +PROHANCE 279.3MG/ML 15ML VIAL ONE; +VITA100093 PO
== END ==
LOC: M PLAIMG 10:40
PROVIDERS: ATTEND Internal Medicine Medical Oncology
DX: C34.90 Malignant neoplasm of unspecified part of unspecified bronchus or lung (principal); J34.9 Unspecified disorder of nose and nasal sinuses; R90.89 Other abnormal findings on diagnostic imaging of central nervous system; R41.89 Other symptoms and signs involving cognitive functions and awareness
CPT/HCPCS: 70553; A9576

== ENCOUNTER 2022-01-26 13:09 | Observation (INO) | payer OTHER ==
[~2022-01-26] VITALS: Ht 190.5 cm; Wt 118.1 kg
[~2022-01-26 13:09] MED LIST changes: -DIPH50CA29; +DIPH50CA29 PO; -PROHANCE 279.3MG/ML 15ML VIAL ONE
[2022-01-26 13:50] LABS: BASO % 0.3 % (0.0-1.0); EOS # 0.2 10^3/uL (0.0-0.5); HEMOGLOBIN 14.1 g/dl (13.5-17.5); LYMPH # 0.9 10^3/uL (1.5-5.0); LYMPH % 8.5 % (24.0-44.0); MEAN CORPUSCULAR HEMOGLOBIN 31.5 pg (27.0-33.0); MEAN CORPUSCULAR HGB CONC 33.6 g/dl (32.0-36.5); MEAN CORPUSCULAR VOLUME 93.8 fl (80.0-96.0); MONO # 0.4 10^3/uL (0.0-0.8); MONO % 3.8 % (2.0-8.0); NEUTROPHILS # 8.6 10^3/uL (1.5-8.5); PLATELET COUNT, AUTOMATED 235 10^3/uL (150-450); RED BLOOD COUNT 4.48 10^6/uL (4.30-6.10); WHITE BLOOD COUNT 10.1 10^3/uL (4.0-10.0)
[2022-01-26 14:20] LABS: ALBUMIN 4.1 GM/DL (3.2-5.2); BILIRUBIN,DIRECT 0.2 MG/DL (0.0-0.2); BILIRUBIN,TOTAL 0.6 MG/DL (0.2-1.0); CALCIUM LEVEL 9.1 MG/DL (8.8-10.2); CREATININE FOR GFR 1.75 MG/DL (0.70-1.30); GLOMERULAR FILTRATION RATE 50.9 (>49); POTASSIUM SERUM 4.1 MEQ/L (3.5-5.1); THYROID STIMULATING HORMONE 2.43 uIU/ML (0.358-3.740); TOTAL PROTEIN 7.1 GM/DL (6.4-8.2)
[2022-01-26] MEDS ORDERED: NS 1,000 ML IV SCH (14:55)
[2022-01-26 16:03] LABS: RSV AMPLIFICATION NEGATIVE (NEGATIVE)
[2022-01-26] MEDS ORDERED: levETIRAcetam INJection 500 MG in D5W MINI-BAG PLUS 100 ML IV ONE (16:30)
[2022-01-26] MEDS ORDERED: ACETAMINOPHEN TAB 650MG DOSE (2X325MG) PO ONE (17:10)
[2022-01-26] MEDS ORDERED: DOXE50CA PO (18:09)
[2022-01-26] MEDS ORDERED: HOME MED LIST COMPLETE! XX SCH (18:15)
[2022-01-26] MEDS ORDERED: ATORVASTATIN 20 MG TAB PO SCH (21:00)
[2022-01-26] MEDS ORDERED: diphenhydrAMINE 50MG CAP PO SCH (21:00)
[2022-01-26] MEDS: **hydrALAZINE HCL** 25 MG TAB PO SCH (21:02)
[2022-01-26] MEDS: DOCUSATE SODIUM 100MG CAPSULE PO SCH (21:02)
[2022-01-26] MEDS: OMEPRAZOLE 20MG CAP PO SCH (21:03)
[2022-01-26] MEDS: levETIRAcetam 250MG TABLET (KEPPRA) PO SCH (21:03)
[2022-01-26] MEDS: MAGNESIUM OXIDE 400MG TAB (MAG-OX) PO SCH (21:03)
[2022-01-26] MEDS: DOXEPIN 25 MG CAP PO SCH (22:22)
[2022-01-27 05:37] LABS: BASO % 0.3 % (0.0-1.0); EOS # 0.4 10^3/uL (0.0-0.5); EOS % 4.2 % (0.0-3.0); HEMATOCRIT 38.8 % (42.0-52.0); HEMOGLOBIN 13.4 g/dl (13.5-17.5); LYMPH # 1.7 10^3/uL (1.5-5.0); LYMPH % 17.6 % (24.0-44.0); MEAN CORPUSCULAR HEMOGLOBIN 32.3 pg (27.0-33.0); MEAN CORPUSCULAR HGB CONC 34.5 g/dl (32.0-36.5); MEAN CORPUSCULAR VOLUME 93.5 fl (80.0-96.0); MONO # 0.5 10^3/uL (0.0-0.8); MONO % 4.7 % (2.0-8.0); NEUTROPHILS # 7.1 10^3/uL (1.5-8.5); PLATELET COUNT, AUTOMATED 216 10^3/uL (150-450); RED BLOOD COUNT 4.15 10^6/uL (4.30-6.10); WHITE BLOOD COUNT 9.7 10^3/uL (4.0-10.0)
[2022-01-27 06:07] LABS: BLOOD UREA NITROGEN 13 MG/DL (7-18); CALCIUM LEVEL 8.7 MG/DL (8.8-10.2); CARBON DIOXIDE LEVEL 27 MEQ/L (21-32); CHLORIDE LEVEL 108 MEQ/L (98-107); CREATININE FOR GFR 1.37 MG/DL (0.70-1.30); GLOMERULAR FILTRATION RATE > 60.0 (>49); GLUCOSE, FASTING 95 MG/DL (70-100); POTASSIUM SERUM 3.8 MEQ/L (3.5-5.1); SODIUM LEVEL 140 MEQ/L (136-145)
[2022-01-27] MEDS ORDERED: TIOTROPIUM INHALER/CAPSULE (SPIRIVA) INH SCH (08:00)
[2022-01-27] MEDS ORDERED: FOLIC ACID 1 MG TAB PO SCH (09:00)
[2022-01-27] MEDS ORDERED: CETIRIZINE (ZyrTEC) 10 MG TAB PO SCH (09:00)
[2022-01-27] MEDS ORDERED: allopurinoL 300 MG TAB PO SCH (09:00)
[2022-01-27] MEDS ORDERED: METOPROLOL SUCC (TopROL XL) 100MG *XL* TAB PO SCH (09:00)
[2022-01-27] MEDS ORDERED: hydroCHLOROthiazide 12.5 MG CAPSULE PO SCH (09:00)
[2022-01-27] MEDS ORDERED: FUROSEMIDE 40 MG TAB PO SCH (09:00)
[2022-01-27] MEDS ORDERED: ISOSORBIDE MON. (IMDUR) 30 MG XR TAB PO SCH (09:00)
[2022-01-27 09:30] VITALS: BP 140/104
[2022-01-27] MEDS: MAGNESIUM OXIDE 400MG TAB (MAG-OX) PO SCH (09:46)
[2022-01-27] MEDS: DOCUSATE SODIUM 100MG CAPSULE PO SCH (09:46)
[2022-01-27] MEDS: OMEPRAZOLE 20MG CAP PO SCH (09:46)
[2022-01-27] MEDS: levETIRAcetam 250MG TABLET (KEPPRA) PO SCH (09:46)
[2022-01-27] MEDS: **hydrALAZINE HCL** 25 MG TAB PO SCH (09:47)
[2022-01-27 09:49] VITALS: BP 140/104
[2022-01-27] MEDS: DOXEPIN 25 MG CAP PO SCH (11:00)
[2022-01-27 12:23] VITALS: BP 115/83
[2022-01-27] MEDS ORDERED: KEPP1TAB PO (12:58)
== END 2022-01-27 15:05 | disposition home or self-care (01) ==
LOC: M ED 13:09 → M ED INP 13:10 → ENRESERV 01-27 08:08 → M MS5PR 01-27 08:40
PROVIDERS: ADMIT Internal Medicine Nephrology; ATTEND Family Medicine
DX: G40.89 Other seizures (principal); C34.31 Malignant neoplasm of lower lobe, right bronchus or lung; C77.9 Secondary and unspecified malignant neoplasm of lymph node, unspecified; N18.30 Chronic kidney disease, stage 3 unspecified; Z79.899 Other long term (current) drug therapy; Z79.82 Long term (current) use of aspirin; I48.91 Unspecified atrial fibrillation; Z90.2 Acquired absence of lung [part of]; Z92.21 Personal history of antineoplastic chemotherapy; Z92.3 Personal history of irradiation; Z79.51 Long term (current) use of inhaled steroids; F43.10 Post-traumatic stress disorder, unspecified; M10.9 Gout, unspecified; Z88.2 Allergy status to sulfonamides; Z88.1 Allergy status to other antibiotic agents; Z88.8 Allergy status to other drugs, medicaments and biological substances; K21.9 Gastro-esophageal reflux disease without esophagitis; K59.00 Constipation, unspecified; D50.9 Iron deficiency anemia, unspecified; Z91.030 Bee allergy status; E83.42 Hypomagnesemia
CPT/HCPCS: 36415; 70450; 80047; 80048; 80076; 80180; 83605; 84443; 84484; 85025; 87631; 93005; 93041; 94640; 94760; 96361; 96374; 99285; G0378; J1953

== ENCOUNTER → 2022-02-23 | Outpatient (CLI) | payer OTHER ==
[~2022-02-23] MED LIST changes: +DOXE50CA PO; +GASTROGRAFIN SOLUTION 30ML (Q9963) As Ordered ONE; +ISOVUE-370 76% 100ML VIAL As Ordered ONE
== END ==
LOC: M RAD 07:26
PROVIDERS: ATTEND Internal Medicine Medical Oncology
DX: C34.31 Malignant neoplasm of lower lobe, right bronchus or lung (principal)
CPT/HCPCS: 71260; 74177; Q9963; Q9967

== ENCOUNTER 2022-03-19 01:47 | Emergency (ER) | payer OTHER ==
[~2022-03-19] VITALS: Ht 190.5 cm; Wt 113.6 kg
[~2022-03-19 01:47] MED LIST changes: -GASTROGRAFIN SOLUTION 30ML (Q9963) As Ordered ONE; -ISOVUE-370 76% 100ML VIAL As Ordered ONE
[2022-03-19 02:14] VITALS: BP 138/90
== END 2022-03-19 05:18 | disposition left against medical advice (07) ==
LOC: M ED 01:47
DX: Z53.21 Procedure and treatment not carried out due to patient leaving prior to being seen by health care provider (principal)

== ENCOUNTER 2022-03-21 10:08 | Observation (INO) | payer OTHER ==
[~2022-03-21] VITALS: Ht 190.5 cm; Wt 113.4 kg
[2022-03-21 10:47] LABS: BASO % 0.3 % (0.0-1.0); EOS # 0.3 10^3/uL (0.0-0.5); EOS % 2.8 % (0.0-3.0); HEMATOCRIT 40.5 % (42.0-52.0); HEMOGLOBIN 13.7 g/dl (13.5-17.5); LYMPH # 1.5 10^3/uL (1.5-5.0); LYMPH % 16.4 % (24.0-44.0); MEAN CORPUSCULAR HEMOGLOBIN 31.6 pg (27.0-33.0); MEAN CORPUSCULAR HGB CONC 33.8 g/dl (32.0-36.5); MEAN CORPUSCULAR VOLUME 93.3 fl (80.0-96.0); MONO # 0.4 10^3/uL (0.0-0.8); MONO % 4.2 % (2.0-8.0); NEUTROPHILS # 7.1 10^3/uL (1.5-8.5); PLATELET COUNT, AUTOMATED 263 10^3/uL (150-450); RED BLOOD COUNT 4.34 10^6/uL (4.30-6.10); WHITE BLOOD COUNT 9.4 10^3/uL (4.0-10.0)
[2022-03-21] MEDS ORDERED: ISOVUE-370 76% 100ML VIAL As Ordered ONE (10:52)
[2022-03-21 10:57] LABS: PROTHROMBIN TIME 13.6 SECONDS (12.7-14.5)
[2022-03-21 10:58] LABS: PARTIAL THROMBOPLASTIN TIME 31.5 SECONDS (25.9-37.0)
[2022-03-21 11:14] LABS: CK-MB VALUE MASS 1.2 NG/ML (<3.6); MB/CK RELATIVE INDEX 1.32 (< OR =4)
[2022-03-21] MEDS ORDERED: LACRILUBE (AKWA TEARS) OPHTH OINT 3.5 GM OS ONE (11:20)
[2022-03-21] MEDS ORDERED: FLUT1BLS3 INH (12:26)
[2022-03-21] MEDS ORDERED: ASPI81TA26 PO (12:26)
[2022-03-21 12:36] LABS: RSV AMPLIFICATION NEGATIVE (NEGATIVE)
[2022-03-21 15:06] VITALS: BP 127/85
[2022-03-21] MEDS ORDERED: predniSONE 20 MG TAB PO ONE (15:55)
[2022-03-21] MEDS ORDERED: POTA10TA17 PO (15:59)
[2022-03-21] MEDS ORDERED: KEPP250T5 PO (15:59)
[2022-03-21] MEDS ORDERED: HOME MED LIST COMPLETE! XX SCH (16:00)
[2022-03-21] MEDS: valACYclovir HCL 500 MG TAB PO SCH ×2 (17:05→21:22)
[2022-03-21] MEDS ORDERED: ACETAMINOPHEN TAB 650MG DOSE (2X325MG) PO PRN (18:50)
[2022-03-21] MEDS: ADVAIR HFA 230/21MCG INHALER INH SCH (21:00)
[2022-03-21] MEDS: POLYVINYL ALCOHOL OPHTH SOLN 15 ML(LIQUITEARS) OS SCH (21:19)
[2022-03-21] MEDS: LACRILUBE (AKWA TEARS) OPHTH OINT 3.5 GM OS SCH (21:19)
[2022-03-21] MEDS: diphenhydrAMINE 50MG CAP PO SCH (21:20)
[2022-03-21 21:22] VITALS: BP 115/74
[2022-03-21] MEDS: DOCUSATE SODIUM 100MG CAPSULE PO SCH (21:22)
[2022-03-21] MEDS: OMEPRAZOLE 20MG CAP PO SCH (21:23)
[2022-03-21] MEDS: MAGNESIUM OXIDE 400MG TAB (MAG-OX) PO SCH (21:23)
[2022-03-21] MEDS: ATORVASTATIN 20 MG TAB PO SCH (21:23)
[2022-03-21] MEDS: **hydrALAZINE HCL** 25 MG TAB PO SCH (21:25)
[2022-03-21] MEDS: DOXEPIN 25 MG CAP PO SCH (21:25)
[2022-03-21] MEDS: levETIRAcetam 250MG TABLET (KEPPRA) PO SCH (21:26)
[2022-03-21] MEDS: clonazePAM 0.5 MG TAB PO PRN (21:33)
[2022-03-22 04:28] VITALS: BP 122/63
[2022-03-22] MEDS: valACYclovir HCL 500 MG TAB PO SCH ×3 (05:07→21:09)
[2022-03-22 06:05] LABS: BASO % 0.1 % (0.0-1.0); HEMATOCRIT 40.9 % (42.0-52.0); LYMPH # 0.7 10^3/uL (1.5-5.0); LYMPH % 8.4 % (24.0-44.0); MEAN CORPUSCULAR HEMOGLOBIN 31.9 pg (27.0-33.0); MEAN CORPUSCULAR HGB CONC 34.2 g/dl (32.0-36.5); MEAN CORPUSCULAR VOLUME 93.2 fl (80.0-96.0); MONO # 0.1 10^3/uL (0.0-0.8); MONO % 0.7 % (2.0-8.0); NEUTROPHILS # 7.8 10^3/uL (1.5-8.5); NEUTROPHILS % 90.4 % (36.0-66.0); PLATELET COUNT, AUTOMATED 278 10^3/uL (150-450); RED BLOOD COUNT 4.39 10^6/uL (4.30-6.10); WHITE BLOOD COUNT 8.6 10^3/uL (4.0-10.0)
[2022-03-22 06:24] LABS: CALCIUM LEVEL 9.7 MG/DL (8.8-10.2); CREATININE FOR GFR 1.75 MG/DL (0.70-1.30); GLOMERULAR FILTRATION RATE 50.9 (>49); POTASSIUM SERUM 4.2 MEQ/L (3.5-5.1)
[2022-03-22] MEDS: TIOTROPIUM INHALER/CAPSULE (SPIRIVA) INH SCH (07:51)
[2022-03-22] MEDS: ADVAIR HFA 230/21MCG INHALER INH SCH ×2 (07:51→18:08)
[2022-03-22] MEDS: ASPIRIN 81MG ENTERIC TABLET PO SCH (09:41)
[2022-03-22] MEDS: METOPROLOL SUCC (TopROL XL) 100MG *XL* TAB PO SCH (09:41)
[2022-03-22] MEDS: FOLIC ACID 1 MG TAB PO SCH (09:41)
[2022-03-22] MEDS: DOXEPIN 25 MG CAP PO SCH ×2 (09:41→21:08)
[2022-03-22] MEDS: DOCUSATE SODIUM 100MG CAPSULE PO SCH ×2 (09:41→21:08)
[2022-03-22] MEDS: predniSONE 20 MG TAB PO SCH (09:41)
[2022-03-22] MEDS: hydroCHLOROthiazide 12.5 MG CAPSULE PO SCH (09:41)
[2022-03-22] MEDS: POTASSIUM CHLORIDE 10MEQ SR TABLET PO SCH (09:42)
[2022-03-22] MEDS: OMEPRAZOLE 20MG CAP PO SCH ×2 (09:42→21:06)
[2022-03-22] MEDS: MAGNESIUM OXIDE 400MG TAB (MAG-OX) PO SCH ×2 (09:42→21:08)
[2022-03-22] MEDS: allopurinoL 300 MG TAB PO SCH (09:42)
[2022-03-22] MEDS: CETIRIZINE (ZyrTEC) 10 MG TAB PO SCH (09:42)
[2022-03-22] MEDS: POLYVINYL ALCOHOL OPHTH SOLN 15 ML(LIQUITEARS) OS SCH ×4 (09:42→21:09)
[2022-03-22] MEDS: ISOSORBIDE MON. (IMDUR) 30MG XR TAB PO SCH (09:42)
[2022-03-22] MEDS: **hydrALAZINE HCL** 25 MG TAB PO SCH ×3 (09:43→21:13)
[2022-03-22 14:00] VITALS: BP 126/87
[2022-03-22] MEDS: FUROSEMIDE 40 MG TAB PO SCH (17:43)
[2022-03-22] MEDS: clonazePAM 0.5 MG TAB PO PRN (21:06)
[2022-03-22] MEDS: diphenhydrAMINE 50MG CAP PO SCH (21:07)
[2022-03-22] MEDS: ATORVASTATIN 20 MG TAB PO SCH (21:08)
[2022-03-22] MEDS: LACRILUBE (AKWA TEARS) OPHTH OINT 3.5 GM OS SCH (21:09)
[2022-03-22] MEDS: levETIRAcetam 250MG TABLET (KEPPRA) PO SCH (21:09)
[2022-03-22 22:00] VITALS: BP 127/86
[2022-03-23] MEDS: valACYclovir HCL 500 MG TAB PO SCH (05:22)
[2022-03-23 06:00] VITALS: BP 125/91
[2022-03-23] MEDS: ADVAIR HFA 230/21MCG INHALER INH SCH (07:38)
[2022-03-23] MEDS: TIOTROPIUM INHALER/CAPSULE (SPIRIVA) INH SCH (07:38)
[2022-03-23] MEDS: FOLIC ACID 1 MG TAB PO SCH (08:33)
[2022-03-23] MEDS: hydroCHLOROthiazide 12.5 MG CAPSULE PO SCH (08:33)
[2022-03-23] MEDS: predniSONE 20 MG TAB PO SCH (08:33)
[2022-03-23] MEDS: allopurinoL 300 MG TAB PO SCH (08:33)
[2022-03-23] MEDS: ASPIRIN 81MG ENTERIC TABLET PO SCH (08:33)
[2022-03-23] MEDS: POTASSIUM CHLORIDE 10MEQ SR TABLET PO SCH (08:34)
[2022-03-23] MEDS: OMEPRAZOLE 20MG CAP PO SCH (08:35)
[2022-03-23] MEDS: FUROSEMIDE 40 MG TAB PO SCH (08:35)
[2022-03-23] MEDS: MAGNESIUM OXIDE 400MG TAB (MAG-OX) PO SCH (08:35)
[2022-03-23] MEDS: DOXEPIN 25 MG CAP PO SCH (08:35)
[2022-03-23] MEDS: CETIRIZINE (ZyrTEC) 10 MG TAB PO SCH (08:35)
[2022-03-23] MEDS: POLYVINYL ALCOHOL OPHTH SOLN 15 ML(LIQUITEARS) OS SCH ×2 (08:35→13:03)
[2022-03-23] MEDS: DOCUSATE SODIUM 100MG CAPSULE PO SCH (08:35)
[2022-03-23 08:36] VITALS: BP 125/91
[2022-03-23] MEDS: **hydrALAZINE HCL** 25 MG TAB PO SCH (08:36)
[2022-03-23] MEDS: ISOSORBIDE MON. (IMDUR) 30MG XR TAB PO SCH (08:37)
[2022-03-23] MEDS: METOPROLOL SUCC (TopROL XL) 100MG *XL* TAB PO SCH (08:37)
[2022-03-23] MEDS ORDERED: POLYOPD OS (10:40)
[2022-03-23] MEDS ORDERED: AKWA1OIN OS (10:40)
[2022-03-23] MEDS ORDERED: VALA500T5 PO (10:40)
[2022-03-23] MEDS ORDERED: PRED10TA2 PO (10:40)
== END 2022-03-23 13:07 | disposition home or self-care (01) ==
LOC: M ED 10:08 → M ED INP 10:09 → ENRESERV 14:33 → M MSPAV 15:07
PROVIDERS: ADMIT Internal Medicine Nephrology; ATTEND Internal Medicine Nephrology
DX: G51.0 Bell's palsy (principal); R26.89 Other abnormalities of gait and mobility; J44.9 Chronic obstructive pulmonary disease, unspecified; G43.909 Migraine, unspecified, not intractable, without status migrainosus; I12.9 Hypertensive chronic kidney disease with stage 1 through stage 4 chronic kidney disease, or unspecified chronic kidney disease; N18.30 Chronic kidney disease, stage 3 unspecified; E78.5 Hyperlipidemia, unspecified; M10.9 Gout, unspecified; E83.42 Hypomagnesemia; D50.9 Iron deficiency anemia, unspecified; Z85.118 Personal history of other malignant neoplasm of bronchus and lung; Z92.21 Personal history of antineoplastic chemotherapy; F43.10 Post-traumatic stress disorder, unspecified; K21.9 Gastro-esophageal reflux disease without esophagitis; K59.00 Constipation, unspecified
CPT/HCPCS: 36415; 70450; 70496; 70498; 70551; 71045; 72148; 80047; 80048; 80180; 82550; 82553; 84484; 85025; 85610; 85730; 86850; 86870; 86900; 86901; 87631; 93005; 93041; 94640; 94664; 94760; 97161; 97530; 99285; G0378; J7512; Q9967

== ENCOUNTER → 2022-09-03 | Outpatient (CLI) | payer OTHER ==
[~2022-09-03] MED LIST changes: +ACET1TAB55 PO; +AKWA1OIN OS; +ASPI81TA26 PO; +AZEL1SPR3 NARES; +CETI-24 PO; +CLOP75TA99 PO; +DYMI137S; +ELIQ5TAB PO; +FLON1SPR NARES; +FLUT1BLS3 INH; +GASTROGRAFIN SOLUTION 30ML As Ordered ONE; +ISOVUE-370 76% 100ML VIAL As Ordered ONE; +METO1TAB33 PO; +MIRA3350 PO; +OMEP-173 PO; +OPTI0.5D5 OP; -PLAV1TAB2 PO; +POLYOPD OS; +POTA-149 PO; +POTA-150 PO; +PRIM50TA6 PO; +PROAAER10 INH; +SPIR12.9 INH; +VALA500T5 PO
== END ==
LOC: M RAD 10:57
PROVIDERS: ATTEND Internal Medicine Medical Oncology
DX: Z08 Encounter for follow-up examination after completed treatment for malignant neoplasm (principal); Z85.118 Personal history of other malignant neoplasm of bronchus and lung
CPT/HCPCS: 71260; 74177; Q9963; Q9967

== ENCOUNTER 2022-09-06 08:56 | Emergency (ER) | payer OTHER ==
[~2022-09-06 08:56] MED LIST changes: -GASTROGRAFIN SOLUTION 30ML As Ordered ONE; -ISOVUE-370 76% 100ML VIAL As Ordered ONE
[2022-09-06 10:04] LABS: BASO % 0.3 % (0.0-1.0); EOS # 0.5 10^3/uL (0.0-0.5); EOS % 4.4 % (0.0-3.0); HEMATOCRIT 39.8 % (42.0-52.0); HEMOGLOBIN 13.4 g/dl (13.5-17.5); LYMPH # 0.8 10^3/uL (1.5-5.0); LYMPH % 8.2 % (24.0-44.0); MEAN CORPUSCULAR HEMOGLOBIN 31.2 pg (27.0-33.0); MEAN CORPUSCULAR HGB CONC 33.7 g/dl (32.0-36.5); MEAN CORPUSCULAR VOLUME 92.8 fl (80.0-96.0); MONO # 0.5 10^3/uL (0.0-0.8); MONO % 4.4 % (2.0-8.0); NEUTROPHILS # 8.5 10^3/uL (1.5-8.5); NEUTROPHILS % 82.3 % (36.0-66.0); PLATELET COUNT, AUTOMATED 252 10^3/uL (150-450); RED BLOOD COUNT 4.29 10^6/uL (4.30-6.10); WHITE BLOOD COUNT 10.3 10^3/uL (4.0-10.0)
[2022-09-06 10:08] LABS: INR 1.26
[2022-09-06 10:09] LABS: PARTIAL THROMBOPLASTIN TIME 30.2 SECONDS (24.8-34.2)
[2022-09-06 10:25] LABS: ALBUMIN 4.1 G/DL (3.2-5.2); ALT/SGPT 17 U/L (7.0-40); BILIRUBIN,DIRECT 0.2 MG/DL (<0.4); BILIRUBIN,TOTAL 0.4 MG/DL (0.3-1.2); BLOOD UREA NITROGEN 16 MG/DL (9-23); CALCIUM LEVEL 9.5 MG/DL (8.3-10.6); CARBON DIOXIDE LEVEL 27 MMOL/L (20-31); CHLORIDE LEVEL 100 MMOL/L (98-107); CPK CREATINE PHOSPHOKINASE 135 U/L (46-171); CREATININE FOR GFR 1.45 MG/DL (0.70-1.30); FREE T4 0.88 NG/DL (0.89-1.76); GLOMERULAR FILTRATION RATE > 60.0 (>49); GLUCOSE, FASTING 96 MG/DL (74-106); MB/CK RELATIVE INDEX 1.48 (< OR =4); POTASSIUM SERUM 3.6 MMOL/L (3.5-5.1); SODIUM LEVEL 136 MMOL/L (136-145); THYROID STIMULATING HORMONE 5.745 uIU/ML (0.55-4.78); TOTAL PROTEIN 6.9 G/DL (5.7-8.2)
[2022-09-06] MEDS ORDERED: ISOVUE-370 76% 100ML VIAL As Ordered ONE (10:31)
[2022-09-06 10:40] LABS: LIPASE 34 U/L (12-53)
[2022-09-06 12:25] LABS: CK-MB VALUE MASS 1.3 NG/ML (<3.6); MB/CK RELATIVE INDEX 0.8 (< OR =4)
[2022-09-06] MEDS ORDERED: ACETAMINOPHEN 500 MG TAB PO ONE (12:45)
[2022-09-06 14:00] LABS: CK-MB VALUE MASS 1.6 NG/ML (<3.6); MB/CK RELATIVE INDEX 0.95 (< OR =4)
[2022-09-06 15:13] VITALS: BP 119/84
== END 2022-09-06 15:36 | disposition home or self-care (01) ==
LOC: EDBD 08:56 → M ED 08:56
DX: R07.89 Other chest pain (principal); R06.02 Shortness of breath; M25.561 Pain in right knee; M25.461 Effusion, right knee; W00.0XXA Fall on same level due to ice and snow, initial encounter; J90 Pleural effusion, not elsewhere classified; J32.9 Chronic sinusitis, unspecified; Z85.118 Personal history of other malignant neoplasm of bronchus and lung; M17.11 Unilateral primary osteoarthritis, right knee; R94.31 Abnormal electrocardiogram [ECG] [EKG]; I10 Essential (primary) hypertension; E78.5 Hyperlipidemia, unspecified; K21.9 Gastro-esophageal reflux disease without esophagitis; J44.9 Chronic obstructive pulmonary disease, unspecified; R56.9 Unspecified convulsions; G51.0 Bell's palsy; G89.4 Chronic pain syndrome; M54.50 Low back pain, unspecified; F43.10 Post-traumatic stress disorder, unspecified; F41.9 Anxiety disorder, unspecified; F32.A Depression, unspecified; Z92.21 Personal history of antineoplastic chemotherapy; Z92.3 Personal history of irradiation; Z87.891 Personal history of nicotine dependence; Z88.2 Allergy status to sulfonamides; Z88.6 Allergy status to analgesic agent; Z88.8 Allergy status to other drugs, medicaments and biological substances; Z79.01 Long term (current) use of anticoagulants; Z79.899 Other long term (current) drug therapy; Z79.82 Long term (current) use of aspirin; Z79.51 Long term (current) use of inhaled steroids
CPT/HCPCS: 36415; 70450; 70496; 70498; 71045; 71275; 73564; 80048; 80076; 82550; 82553; 83690; 83880; 84439; 84443; 84484; 85025; 85610; 85730; 87486; 87581; 87633; 87798; 93005; 93041; 94760; 99285; Q9967

== ENCOUNTER → 2022-11-16 | Outpatient (REF) | payer OTHER ==
[~2022-11-16] MED LIST changes: +NYST-38 PO; -NYST50SS PO; -POTA10CA32 PO; +POTA10CA33 PO
[2022-11-16 12:47] LABS: BASO % 0.4 % (0.0-1.0); EOS # 0.5 10^3/uL (0.0-0.5); EOS % 6.4 % (0.0-3.0); HEMOGLOBIN 13.2 g/dl (13.5-17.5); LYMPH # 1.3 10^3/uL (1.5-5.0); LYMPH % 18.4 % (24.0-44.0); MEAN CORPUSCULAR HEMOGLOBIN 31.5 pg (27.0-33.0); MEAN CORPUSCULAR HGB CONC 33.8 g/dl (32.0-36.5); MEAN CORPUSCULAR VOLUME 93.1 fl (80.0-96.0); MONO # 0.4 10^3/uL (0.0-0.8); NEUTROPHILS % 68.5 % (36.0-66.0); PLATELET COUNT, AUTOMATED 287 10^3/uL (150-450); RED BLOOD COUNT 4.19 10^6/uL (4.30-6.10); WHITE BLOOD COUNT 7.3 10^3/uL (4.0-10.0)
[2022-11-16 13:21] LABS: VITAMIN B12 LEVEL 581 PG/ML (211-911)
[2022-11-16 13:22] LABS: FOLATE > 24.0 NG/ML (>5.4)
== END ==
LOC: M LAB REF 11:43
PROVIDERS: ATTEND Psychiatry & Neurology Neurology
DX: E03.9 Hypothyroidism, unspecified (principal); G40.909 Epilepsy, unspecified, not intractable, without status epilepticus; D51.9 Vitamin B12 deficiency anemia, unspecified; R25.1 Tremor, unspecified

== ENCOUNTER → 2023-02-02 | Outpatient (CLI) | payer MEDICARE, OTHER ==
[~2023-02-02] MED LIST changes: -AK-T0.3S OU; +ARTIDRO4 OS; +FLUT50SP17 NARES; -FLUTISP NARES; +GASTROGRAFIN SOLUTION 30ML As Ordered ONE; +ISOVUE-370 76% 100ML VIAL As Ordered ONE; -POLYOPD OS; +TOBR0.3S30 OU
== END ==
LOC: M RAD 08:05
PROVIDERS: ATTEND Internal Medicine Medical Oncology
DX: C34.90 Malignant neoplasm of unspecified part of unspecified bronchus or lung (principal)
CPT/HCPCS: 70491; 71260; 74177; Q9963; Q9967

== ENCOUNTER → 2023-06-08 | Outpatient (CLI) | payer MEDICARE, OTHER ==
[~2023-06-08] MED LIST changes: -DENT1.1G TEETH; +FLUO56GE6 TEETH; -K-TA10TA2 PO; -LIDO1CRE42 TOP; +LIDO30CR18 TOP; +LOPR1TAB7 PO; +POTA-165 PO; -POTA10CA33 PO; +POTA10CA60 PO; +REFR0.5D8 OU
== END ==
LOC: M RAD 06:53
PROVIDERS: ATTEND Internal Medicine Medical Oncology
DX: C34.90 Malignant neoplasm of unspecified part of unspecified bronchus or lung (principal)
CPT/HCPCS: 71260; 74177; Q9963; Q9967

== ENCOUNTER 2023-11-26 17:09 | Inpatient (IN) | payer MEDICARE, OTHER ==
[~2023-11-26] VITALS: Ht 190.5 cm; Wt 119.0 kg
[~2023-11-26 17:09] MED LIST changes: -FLUT50SP17 NARES; +FLUTISP NARES; -GASTROGRAFIN SOLUTION 30ML As Ordered ONE; -ISOVUE-370 76% 100ML VIAL As Ordered ONE; +OPTI0.5D2 OP; -OPTI0.5D5 OP
[2023-11-26] MEDS: NS 1,000 ML IV SCH (18:49)
[2023-11-26 19:04] LABS: BASO % 0.2 % (0.0-1.0); EOS # 0.4 10^3/uL (0.0-0.5); EOS % 3.1 % (0.0-3.0); HEMATOCRIT 37.3 % (42.0-52.0); HEMOGLOBIN 12.9 g/dl (13.5-17.5); LYMPH % 8.1 % (24.0-44.0); MEAN CORPUSCULAR HEMOGLOBIN 32.6 pg (27.0-33.0); MEAN CORPUSCULAR HGB CONC 34.6 g/dl (32.0-36.5); MEAN CORPUSCULAR VOLUME 94.2 fl (80.0-96.0); MONO # 0.6 10^3/uL (0.0-0.8); MONO % 4.5 % (2.0-8.0); NEUTROPHILS # 10.5 10^3/uL (1.5-8.5); NEUTROPHILS % 83.9 % (36.0-66.0); PLATELET COUNT, AUTOMATED 285 10^3/uL (150-450); RED BLOOD COUNT 3.96 10^6/uL (4.30-6.10); WHITE BLOOD COUNT 12.5 10^3/uL (4.0-10.0)
[2023-11-26 19:15] LABS: INR 1.38; PROTHROMBIN TIME 16.6 SECONDS (12.5-14.5)
[2023-11-26 19:28] LABS: CK-MB VALUE MASS < 1.0 NG/ML (<3.6)
[2023-11-26 19:30] LABS: ALBUMIN 3.5 G/DL (3.2-5.2); ALKALINE PHOSPHATASE 99 U/L (46-116); ALT/SGPT 17 U/L (7.0-40); AST/SGOT 11 U/L (<34); BILIRUBIN,DIRECT 0.4 MG/DL (<0.4); BILIRUBIN,TOTAL 0.9 MG/DL (0.3-1.2); BLOOD UREA NITROGEN 13 MG/DL (9-23); CALCIUM LEVEL 8.9 MG/DL (8.3-10.6); CARBON DIOXIDE LEVEL 26 MMOL/L (20-31); CHLORIDE LEVEL 101 MMOL/L (98-107); CREATININE FOR GFR 1.36 MG/DL (0.70-1.30); GLOMERULAR FILTRATION RATE > 60.0 (>49); GLUCOSE, FASTING 93 MG/DL (74-106); POTASSIUM SERUM 3.9 MMOL/L (3.5-5.1); SODIUM LEVEL 134 MMOL/L (136-145); TOTAL PROTEIN 6.6 G/DL (5.7-8.2)
[2023-11-26 19:32] LABS: THYROID STIMULATING HORMONE 3.016 uIU/ML (0.55-4.78); THYROXINE (T4) 6.8 UG/DL (4.5-10.9)
[2023-11-26 19:35] LABS: CPK CREATINE PHOSPHOKINASE 74 U/L (46-171); MB/CK RELATIVE INDEX 1.35 (< OR =4)
[2023-11-26] MEDS ORDERED: ISOVUE-370 76% 100ML VIAL As Ordered ONE (19:35)
[2023-11-26] MEDS ORDERED: ALBUTEROL SULFATE 2.5MG/0.5ML INH NEB SOLN NEB PRN (21:25)
[2023-11-26] MEDS: LevoFLOXacin IV 750 MG in IV 1 EA IV ONE (21:47)
[2023-11-26] MEDS: DEXTROMETHORPHAN 60MG/10ML SUSP 90ML BTL(DELSYM) PO SCH (22:01)
[2023-11-26 22:22] LABS: RSV AMPLIFICATION NEGATIVE (NEGATIVE)
[2023-11-26] MEDS ORDERED: SPIR12.9 INH (22:31)
[2023-11-26] MEDS ORDERED: RA V400C PO (22:33)
[2023-11-26] MEDS ORDERED: BIOTLIQ9 MT (22:33)
[2023-11-26] MEDS ORDERED: HOME MED LIST COMPLETE! XX SCH (22:35)
[2023-11-27] MEDS: LR 1,000 ML IV SCH (01:11)
[2023-11-27 01:35] VITALS: BP 145/83
[2023-11-27] MEDS: levETIRAcetam 250MG TABLET (KEPPRA) PO SCH (01:35)
[2023-11-27] MEDS: METOPROLOL TARTRATE 100MG TAB PO SCH (01:35)
[2023-11-27] MEDS: OMEPRAZOLE 20MG CAP PO SCH (01:36)
[2023-11-27] MEDS: DOXEPIN 25 MG CAP PO SCH (01:36)
[2023-11-27] MEDS: diphenhydrAMINE 50MG CAP PO SCH (01:36)
[2023-11-27] MEDS: ADVAIR HFA 230/21MCG INHALER INH SCH (01:37)
[2023-11-27] MEDS: IPRATROPIUM 0.5MG/ALBUTEROL 2.5MG INH SOL UD 3ML (DUONEB) NEB SCH (03:52)
[2023-11-27] MEDS: MORPHINE 2 MG/ML 1ML VIAL IV PRN (04:04)
[2023-11-27] MEDS: clonazePAM 0.5 MG TAB PO PRN (04:04)
[2023-11-27 06:01] VITALS: TEMP 97
[2023-11-27 07:42] LABS: BASO % 0.2 % (0.0-1.0); EOS # 0.5 10^3/uL (0.0-0.5); EOS % 4.8 % (0.0-3.0); HEMATOCRIT 34.3 % (42.0-52.0); HEMOGLOBIN 11.8 g/dl (13.5-17.5); LYMPH # 0.9 10^3/uL (1.5-5.0); LYMPH % 8.7 % (24.0-44.0); MEAN CORPUSCULAR HEMOGLOBIN 32.3 pg (27.0-33.0); MEAN CORPUSCULAR HGB CONC 34.4 g/dl (32.0-36.5); MONO # 0.5 10^3/uL (0.0-0.8); MONO % 4.9 % (2.0-8.0); NEUTROPHILS # 8.5 10^3/uL (1.5-8.5); NEUTROPHILS % 81.1 % (36.0-66.0); PLATELET COUNT, AUTOMATED 288 10^3/uL (150-450); RED BLOOD COUNT 3.65 10^6/uL (4.30-6.10); WHITE BLOOD COUNT 10.5 10^3/uL (4.0-10.0)
[2023-11-27 07:50] LABS: PLATELET ESTIMATE NORMAL (NORMAL)
[2023-11-27 08:12] LABS: BLOOD UREA NITROGEN 11 MG/DL (9-23); CALCIUM LEVEL 8.5 MG/DL (8.3-10.6); CARBON DIOXIDE LEVEL 26 MMOL/L (20-31); CHLORIDE LEVEL 104 MMOL/L (98-107); CREATININE FOR GFR 1.33 MG/DL (0.70-1.30); GLOMERULAR FILTRATION RATE > 60.0 (>49); GLUCOSE, FASTING 99 MG/DL (74-106); MAGNESIUM LEVEL 1.9 MG/DL (1.8-2.4); SODIUM LEVEL 136 MMOL/L (136-145)
[2023-11-27] MEDS: FLUTICASONE PROP 0.05% NASAL SPRAY 16 GM (FLONASE) NARES SCH (09:00)
[2023-11-27] MEDS: FOLIC ACID 1MG TAB PO SCH (09:00)
[2023-11-27] MEDS: allopurinoL 300 MG TAB PO SCH (09:00)
[2023-11-27] MEDS: CETIRIZINE (ZyrTEC) 10 MG TAB PO SCH (09:00)
[2023-11-27] MEDS: ASPIRIN 81MG ENTERIC TABLET PO SCH (09:00)
[2023-11-27] MEDS: AZELASTINE 137MCG NASAL SPY 30 ML (ASTELIN) SCH (09:00)
[2023-11-27] MEDS: VITAMIN D 1,000 INTERNATIONAL UNITS TABLET PO SCH (09:00)
[2023-11-27] MEDS: hydroCHLOROthiazide 12.5 MG CAPSULE PO SCH (09:00)
[2023-11-27 12:31] VITALS: BP 117/78; O2SAT 93
[2023-11-27] MEDS ORDERED: LEVO1TAB40 PO (12:41)
[2023-11-27] MEDS ORDERED: ATORVASTATIN 20 MG TAB PO SCH (21:00)
[2023-11-27] MEDS ORDERED: LevoFLOXacin IV 750 MG in IV 1 EA IV SCH (21:00)
[2023-11-28] MEDS ORDERED: TIOTROPIUM INHALER/CAPSULE (SPIRIVA) INH SCH (08:00)
[2023-11-28] MEDS ORDERED: FLUZONE HIGH DOSE(65YR UP)QUAD/PF 240MCG/0.7ML SYRINGE IM.IMMUN ONE (09:00)
== END 2023-11-27 12:55 | disposition left against medical advice (07) | DRG 194 ==
LOC: M ED 17:09 → M PCU 21:25 → UNDOADMIN 21:25 → M ED INP 21:25
PROVIDERS: ADMIT Internal Medicine; ATTEND Internal Medicine
DX: J18.9 Pneumonia, unspecified organism (principal); R04.2 Hemoptysis; C34.90 Malignant neoplasm of unspecified part of unspecified bronchus or lung; H02.403 Unspecified ptosis of bilateral eyelids; G40.909 Epilepsy, unspecified, not intractable, without status epilepticus; M10.9 Gout, unspecified; L03.031 Cellulitis of right toe; Z92.21 Personal history of antineoplastic chemotherapy; Z79.01 Long term (current) use of anticoagulants; Z91.030 Bee allergy status; Z88.2 Allergy status to sulfonamides; Z88.8 Allergy status to other drugs, medicaments and biological substances; Z88.6 Allergy status to analgesic agent; Z79.82 Long term (current) use of aspirin; Z79.899 Other long term (current) drug therapy; R91.8 Other nonspecific abnormal finding of lung field

== ENCOUNTER → 2023-12-08 | Outpatient (CLI) | payer MEDICARE, OTHER ==
[~2023-12-08] MED LIST changes: -ASPI-161 PO; +ASPI-615 PO; +BIOTLIQ9 MT; +ELIQ2.5T PO; -HYDR-3910 PO; +HYDR25TA87 PO; +LEVO1TAB40 PO; -MIRA1POW3 PO; +MIRA33506 PO; +RA V400C PO
== END ==
LOC: M RAD 09:59
PROVIDERS: ATTEND Podiatrist
DX: I70.238 Atherosclerosis of native arteries of right leg with ulceration of other part of lower leg (principal)

== ENCOUNTER 2023-12-09 13:41 | Emergency (ER) | payer MEDICARE, OTHER ==
[~2023-12-09] VITALS: Ht 190.5 cm; Wt 116.7 kg
[~2023-12-09 13:41] MED LIST changes: -ELIQ2.5T PO
[2023-12-09 15:33] LABS: VENOUS BASE EXCESS 0.6 (-2.0-2.0); VENOUS HCO3 27.4 MMOL/L (23.0-27.0); VENOUS O2 SATURATION 59.6 % (60.0-80.0); VENOUS PARTIAL PRESSURE CO2 52.6 mmHg (38.0-50.0); VENOUS PARTIAL PRESSURE O2 34.6 mmHg (30.0-50.0); VENOUS PH 7.334 UNITS (7.330-7.430); VENOUS SITE NOT GIVEN; VENOUS STANDARD HCO3 24.1 MMOL/L
[2023-12-09 15:47] LABS: BASO # 0.1 10^3/uL (0.0-0.2); BASO % 0.5 % (0.0-1.0); EOS # 0.8 10^3/uL (0.0-0.5); EOS % 7.1 % (0.0-3.0); HEMOGLOBIN 12.7 g/dl (13.5-17.5); LYMPH # 1.4 10^3/uL (1.5-5.0); LYMPH % 12.9 % (24.0-44.0); MEAN CORPUSCULAR HEMOGLOBIN 31.4 pg (27.0-33.0); MEAN CORPUSCULAR HGB CONC 33.4 g/dl (32.0-36.5); MEAN CORPUSCULAR VOLUME 94.1 fl (80.0-96.0); MONO # 0.5 10^3/uL (0.0-0.8); MONO % 4.2 % (2.0-8.0); NEUTROPHILS % 74.9 % (36.0-66.0); PLATELET COUNT, AUTOMATED 381 10^3/uL (150-450); RED BLOOD COUNT 4.04 10^6/uL (4.30-6.10); WHITE BLOOD COUNT 10.6 10^3/uL (4.0-10.0)
[2023-12-09 16:04] LABS: ALBUMIN 3.6 G/DL (3.2-5.2); ALKALINE PHOSPHATASE 103 U/L (46-116); ALT/SGPT 20 U/L (7.0-40); AST/SGOT 29 U/L (<34); BILIRUBIN,DIRECT 0.2 MG/DL (<0.4); BILIRUBIN,TOTAL 0.5 MG/DL (0.3-1.2); BLOOD UREA NITROGEN 14 MG/DL (9-23); CALCIUM LEVEL 9.1 MG/DL (8.3-10.6); CARBON DIOXIDE LEVEL 28 MMOL/L (20-31); CHLORIDE LEVEL 103 MMOL/L (98-107); CREATININE FOR GFR 1.14 MG/DL (0.70-1.30); GLOMERULAR FILTRATION RATE > 60.0 (>49); GLUCOSE, FASTING 94 MG/DL (74-106); POTASSIUM SERUM 4.4 MMOL/L (3.5-5.1); SODIUM LEVEL 137 MMOL/L (136-145); TOTAL PROTEIN 6.7 G/DL (5.7-8.2)
[2023-12-09 16:09] LABS: INR 1.36; PROTHROMBIN TIME 16.3 SECONDS (12.5-14.5)
[2023-12-09 16:15] LABS: PROCALCITONIN 0.05 ng/ml
[2023-12-09 16:23] LABS: RSV AMPLIFICATION NEGATIVE (NEGATIVE)
[2023-12-09] MEDS ORDERED: ELIQ2.5T PO (19:34)
[2023-12-09 19:40] VITALS: BP 128/103
[2023-12-09 19:41] VITALS: TEMP 98.3; O2SAT 95
== END 2023-12-09 19:59 | disposition home or self-care (01) ==
LOC: M ED 13:41
DX: R04.2 Hemoptysis (principal); G40.909 Epilepsy, unspecified, not intractable, without status epilepticus; M10.9 Gout, unspecified; C34.90 Malignant neoplasm of unspecified part of unspecified bronchus or lung; Z86.711 Personal history of pulmonary embolism; Z88.2 Allergy status to sulfonamides; Z88.5 Allergy status to narcotic agent; Z88.8 Allergy status to other drugs, medicaments and biological substances; Z79.52 Long term (current) use of systemic steroids; Z79.83 Long term (current) use of bisphosphonates; Z79.82 Long term (current) use of aspirin; Z79.02 Long term (current) use of antithrombotics/antiplatelets; Z79.899 Other long term (current) drug therapy

== ENCOUNTER → 2023-12-15 | Outpatient (CLI) | payer MEDICARE, OTHER ==
[~2023-12-15] MED LIST changes: +ELIQ2.5T PO; +GASTROGRAFIN SOLUTION 30ML As Ordered ONE; +GENT1OI; +ISOVUE-370 76% 100ML VIAL As Ordered ONE
== END ==
LOC: M RAD 09:51
PROVIDERS: ATTEND Internal Medicine Medical Oncology
DX: C34.90 Malignant neoplasm of unspecified part of unspecified bronchus or lung (principal); R91.8 Other nonspecific abnormal finding of lung field
CPT/HCPCS: 71260; 74177; Q9963; Q9967

== ENCOUNTER → 2024-01-17 | Outpatient (CLI) | payer OTHER, MEDICARE ==
[~2024-01-17] MED LIST changes: -GASTROGRAFIN SOLUTION 30ML As Ordered ONE; -ISOVUE-370 76% 100ML VIAL As Ordered ONE
== END ==
LOC: M PLARAD 07:32
PROVIDERS: ATTEND Internal Medicine Medical Oncology
DX: C34.31 Malignant neoplasm of lower lobe, right bronchus or lung (principal)
CPT/HCPCS: 78815; A9552

== ENCOUNTER → 2024-03-21 | Outpatient (REF) | payer OTHER ==
[~2024-03-21] MED LIST changes: +METO200T15 PO; -METO200T28 PO; -POTA10CA60 PO; +POTA10CA70 PO
[2024-03-21 10:26] LABS: ESTRADIOL 74.5 PG/ML (<39.8)
[2024-03-22 20:27] LABS: PSA % FREEX 14.3 % (.); PSA FREEX 0.6 ng/mL; PSA TOTALX 4.2 ng/mL (0.0-4.0)
== END ==
LOC: M LAB REF 09:27
PROVIDERS: ATTEND Physician Assistant
DX: N52.9 Male erectile dysfunction, unspecified (principal); R97.20 Elevated prostate specific antigen [PSA]

== ENCOUNTER → 2024-04-28 | Outpatient (CLI) | payer MEDICARE, OTHER ==
[~2024-04-28] MED LIST changes: +GASTROGRAFIN SOLUTION 30ML As Ordered ONE; +ISOVUE-370 76% 100ML VIAL As Ordered ONE; +PRIM250T8
== END ==
LOC: M RAD 08:57
PROVIDERS: ATTEND Internal Medicine Medical Oncology
DX: C34.90 Malignant neoplasm of unspecified part of unspecified bronchus or lung (principal)
CPT/HCPCS: 71260; 74177; Q9963; Q9967

== ENCOUNTER 2024-06-26 03:01 | Inpatient (IN) | payer OTHER, MEDICARE ==
[~2024-06-26] VITALS: Ht 190.5 cm; Wt 116.9 kg
[~2024-06-26 03:01] MED LIST changes: -GASTROGRAFIN SOLUTION 30ML As Ordered ONE; -ISOVUE-370 76% 100ML VIAL As Ordered ONE; +REFR0.5D8 OD; -REFR0.5D8 OU
[2024-06-26 03:58] LABS: BASO % 0.3 % (0.0-1.0); EOS # 0.7 10^3/uL (0.0-0.5); EOS % 6.2 % (0.0-3.0); HEMATOCRIT 34.8 % (42.0-52.0); HEMOGLOBIN 12.2 g/dl (13.5-17.5); LYMPH # 1.1 10^3/uL (1.5-5.0); LYMPH % 8.8 % (24.0-44.0); MEAN CORPUSCULAR HEMOGLOBIN 31.9 pg (27.0-33.0); MEAN CORPUSCULAR HGB CONC 35.1 g/dl (32.0-36.5); MEAN CORPUSCULAR VOLUME 91.1 fl (80.0-96.0); MONO # 0.5 10^3/uL (0.0-0.8); MONO % 4.3 % (2.0-8.0); NEUTROPHILS # 9.6 10^3/uL (1.5-8.5); NEUTROPHILS % 80.1 % (36.0-66.0); PLATELET COUNT, AUTOMATED 282 10^3/uL (150-450); RED BLOOD COUNT 3.82 10^6/uL (4.30-6.10)
[2024-06-26 04:16] LABS: INR 1.52; PROTHROMBIN TIME 17.8 SECONDS (12.5-14.5)
[2024-06-26 04:36] LABS: ALBUMIN 3.3 G/DL (3.2-5.2); ALKALINE PHOSPHATASE 102 U/L (46-116); ALT/SGPT 14 U/L (7.0-40); AST/SGOT 13 U/L (<34); BILIRUBIN,DIRECT 0.5 MG/DL (<0.4); BILIRUBIN,TOTAL 1.2 MG/DL (0.3-1.2); BLOOD UREA NITROGEN 16 MG/DL (9-23); CALCIUM LEVEL 9.1 MG/DL (8.3-10.6); CARBON DIOXIDE LEVEL 22 MMOL/L (20-31); CHLORIDE LEVEL 101 MMOL/L (98-107); CK-MB VALUE MASS < 1.0 NG/ML (<3.6); CPK CREATINE PHOSPHOKINASE 96 U/L (46-171); GLOMERULAR FILTRATION RATE > 60.0 (>49); GLUCOSE, FASTING 108 MG/DL (74-106); MB/CK RELATIVE INDEX 1.04 (< OR =4); POTASSIUM SERUM 3.3 MMOL/L (3.5-5.1); SODIUM LEVEL 132 MMOL/L (136-145); TOTAL PROTEIN 6.7 G/DL (5.7-8.2)
[2024-06-26 05:55] LABS: CK-MB VALUE MASS < 1.0 NG/ML (<3.6)
[2024-06-26] MEDS ORDERED: ISOVUE-370 76% 100ML VIAL As Ordered ONE (05:59)
[2024-06-26 06:04] LABS: PROCALCITONIN 0.56 ng/ml
[2024-06-26 06:37] LABS: CPK CREATINE PHOSPHOKINASE 93 U/L (46-171); MB/CK RELATIVE INDEX 1.07 (< OR =4)
[2024-06-26] MEDS: IPRATROPIUM 0.5MG/ALBUTEROL 2.5MG INH SOL UD 3ML (DUONEB) NEB ONE (06:40)
[2024-06-26] MEDS: LevoFLOXacin IV 750 MG in IV 1 EA IV ONE (06:51)
[2024-06-26] MEDS ORDERED: ALBUTEROL SULFATE 2.5MG/0.5ML INH NEB SOLN NEB PRN (07:40)
[2024-06-26] MEDS ORDERED: ACETAMINOPHEN TAB 650MG DOSE (2X325MG) PO PRN (07:40)
[2024-06-26] MEDS ORDERED: ACET1TAB55 PO (07:45)
[2024-06-26] MEDS ORDERED: ARTIDRO4 OS (07:56)
[2024-06-26] MEDS ORDERED: HOME MED LIST COMPLETE! XX SCH (08:00)
[2024-06-26 08:14] LABS: HEMATOCRIT 36.6 % (42.0-52.0); HEMOGLOBIN 12.6 g/dl (13.5-17.5); MEAN CORPUSCULAR HEMOGLOBIN 31.9 pg (27.0-33.0); MEAN CORPUSCULAR HGB CONC 34.4 g/dl (32.0-36.5); MEAN CORPUSCULAR VOLUME 92.7 fl (80.0-96.0); PLATELET COUNT, AUTOMATED 295 10^3/uL (150-450); RED BLOOD COUNT 3.95 10^6/uL (4.30-6.10); WHITE BLOOD COUNT 11.4 10^3/uL (4.0-10.0)
[2024-06-26 08:32] LABS: INR 1.46; PROTHROMBIN TIME 17.3 SECONDS (12.5-14.5)
[2024-06-26] MEDS: APIXABAN 2.5 MG TAB (ELIQUIS) PO SCH (08:45)
[2024-06-26] MEDS: NS 1,000 ML IV SCH (08:46)
[2024-06-26] MEDS: OMEPRAZOLE 20MG CAP PO SCH (08:46)
[2024-06-26] MEDS: POTASSIUM CHLORIDE 10MEQ SR TABLET PO ONE (08:47)
[2024-06-26] MEDS ORDERED: DOCUSATE SODIUM 100MG CAPSULE PO PRN (08:50)
[2024-06-26] MEDS ORDERED: MIRALAX *UNIT DOSE* 17GM PACKET PO PRN (08:50)
[2024-06-26 08:57] LABS: ALBUMIN 3.5 G/DL (3.2-5.2); BILIRUBIN,TOTAL 1.3 MG/DL (0.3-1.2); CALCIUM LEVEL 9.5 MG/DL (8.3-10.6); CREATININE FOR GFR 1.55 MG/DL (0.70-1.30); GLOMERULAR FILTRATION RATE 58.2 (>49); POTASSIUM SERUM 3.7 MMOL/L (3.5-5.1); TOTAL PROTEIN 7.2 G/DL (5.7-8.2)
[2024-06-26] MEDS ORDERED: METOPROLOL TARTRATE 100MG TAB PO SCH (09:00)
[2024-06-26] MEDS: PRIMIDONE 50MG TAB PO SCH (09:00)
[2024-06-26] MEDS: ARTIFICIAL TEARS DROPS 15ML BTL (VISINE DRY RELIEF) OD SA SCH (09:00)
[2024-06-26] MEDS: AZELASTINE 137MCG NASAL SPY 30 ML (ASTELIN) SCH (09:00)
[2024-06-26] MEDS: FLUTICASONE PROP 0.05% NASAL SPRAY 16 GM (FLONASE) NARES SCH (09:00)
[2024-06-26] MEDS: ADVAIR HFA 230/21MCG INHALER INH SCH (09:02)
[2024-06-26] MEDS: IPRATROPIUM 0.5MG/ALBUTEROL 2.5MG INH SOL UD 3ML (DUONEB) NEB SCH (09:02)
[2024-06-26 09:03] VITALS: O2SAT 95
[2024-06-26 09:21] LABS: HEMATOCRIT 34.1 % (42.0-52.0); HEMOGLOBIN 11.7 g/dl (13.5-17.5); MEAN CORPUSCULAR HEMOGLOBIN 31.6 pg (27.0-33.0); MEAN CORPUSCULAR HGB CONC 34.3 g/dl (32.0-36.5); MEAN CORPUSCULAR VOLUME 92.2 fl (80.0-96.0); PLATELET COUNT, AUTOMATED 294 10^3/uL (150-450); WHITE BLOOD COUNT 11.2 10^3/uL (4.0-10.0)
[2024-06-26] MEDS: allopurinoL 300 MG TAB PO SCH (10:19)
[2024-06-26] MEDS: FOLIC ACID 1MG TAB PO SCH (10:19)
[2024-06-26] MEDS: POTASSIUM CHLORIDE 10MEQ SR TABLET PO SCH (10:19)
[2024-06-26] MEDS: hydroCHLOROthiazide 12.5 MG CAPSULE PO SCH (10:19)
[2024-06-26] MEDS: FUROSEMIDE 40 MG TAB PO SCH (10:20)
[2024-06-26] MEDS: VITAMIN D 1,000 INTERNATIONAL UNITS TABLET PO SCH (10:20)
[2024-06-26] MEDS: **hydrALAZINE HCL** 25 MG TAB PO SCH (10:20)
[2024-06-26] MEDS: ISOSORBIDE MON. (IMDUR) 30MG XR TAB PO SCH (10:20)
[2024-06-26] MEDS: ASPIRIN 81MG ENTERIC TABLET PO SCH (10:20)
[2024-06-26] MEDS: METOPROLOL SUCC (TopROL XL) 100MG *XL* TAB PO SCH (10:21)
[2024-06-26 12:03] VITALS: BP 117/82; TEMP 97.5; O2SAT 98
[2024-06-26 19:52] VITALS: BP 119/83; TEMP 97.5; O2SAT 95
[2024-06-26] MEDS: CETIRIZINE (ZyrTEC) 10 MG TAB PO SCH (20:57)
[2024-06-26] MEDS: ATORVASTATIN 20 MG TAB PO SCH (20:57)
[2024-06-26] MEDS: levETIRAcetam 250MG TABLET (KEPPRA) PO SCH (20:57)
[2024-06-26] MEDS: DOXEPIN 25 MG CAP PO SCH (20:58)
[2024-06-26] MEDS: diphenhydrAMINE 50MG CAP PO SCH (20:58)
[2024-06-27 04:07] VITALS: BP 127/79; TEMP 97.5; O2SAT 92
[2024-06-27] MEDS: LevoFLOXacin IV 750 MG in IV 1 EA IV SCH (05:12)
[2024-06-27 06:54] LABS: HEMATOCRIT 33.6 % (42.0-52.0); HEMOGLOBIN 11.4 g/dl (13.5-17.5); MEAN CORPUSCULAR HEMOGLOBIN 31.4 pg (27.0-33.0); MEAN CORPUSCULAR HGB CONC 33.9 g/dl (32.0-36.5); MEAN CORPUSCULAR VOLUME 92.6 fl (80.0-96.0); PLATELET COUNT, AUTOMATED 307 10^3/uL (150-450); RED BLOOD COUNT 3.63 10^6/uL (4.30-6.10); WHITE BLOOD COUNT 9.5 10^3/uL (4.0-10.0)
[2024-06-27 07:16] LABS: ALBUMIN 3.3 G/DL (3.2-5.2); ALKALINE PHOSPHATASE 108 U/L (46-116); ALT/SGPT 37 U/L (7.0-40); AST/SGOT 43 U/L (<34); BILIRUBIN,TOTAL 0.8 MG/DL (0.3-1.2); BLOOD UREA NITROGEN 15 MG/DL (9-23); CALCIUM LEVEL 9.4 MG/DL (8.3-10.6); CARBON DIOXIDE LEVEL 25 MMOL/L (20-31); CHLORIDE LEVEL 102 MMOL/L (98-107); GLOMERULAR FILTRATION RATE > 60.0 (>49); GLUCOSE, FASTING 116 MG/DL (74-106); POTASSIUM SERUM 3.7 MMOL/L (3.5-5.1); SODIUM LEVEL 135 MMOL/L (136-145); TOTAL PROTEIN 6.7 G/DL (5.7-8.2)
[2024-06-27] MEDS: TIOTROPIUM INHALER/CAPSULE (SPIRIVA) INH SCH (07:22)
[2024-06-27 07:26] LABS: BASO % 0.4 % (0.0-1.0); EOS % 10.3 % (0.0-3.0); LYMPH % 10.1 % (24.0-44.0); MONO # 0.4 10^3/uL (0.0-0.8); MONO % 4.2 % (2.0-8.0); NEUTROPHILS # 7.2 10^3/uL (1.5-8.5); NEUTROPHILS % 74.7 % (36.0-66.0)
[2024-06-27] MEDS: DOCUSATE SODIUM 100MG CAPSULE PO SCH (08:27)
[2024-06-27 12:35] VITALS: BP 106/66; TEMP 97.9; O2SAT 91
[2024-06-27] MEDS: clonazePAM 0.5 MG TAB PO PRN (19:41)
[2024-06-27 20:34] VITALS: BP 112/72; TEMP 97.3; O2SAT 94
[2024-06-28 04:24] VITALS: BP 144/89; TEMP 98.2; O2SAT 92
[2024-06-28] MEDS: LevoFLOXacin 750 MG TABLET PO SCH (05:39)
[2024-06-28 06:15] LABS: BASO % 0.5 % (0.0-1.0); EOS # 0.9 10^3/uL (0.0-0.5); EOS % 10.6 % (0.0-3.0); HEMATOCRIT 31.9 % (42.0-52.0); HEMOGLOBIN 11.1 g/dl (13.5-17.5); MEAN CORPUSCULAR HEMOGLOBIN 31.9 pg (27.0-33.0); MEAN CORPUSCULAR HGB CONC 34.8 g/dl (32.0-36.5); MEAN CORPUSCULAR VOLUME 91.7 fl (80.0-96.0); MONO # 0.5 10^3/uL (0.0-0.8); MONO % 6.2 % (2.0-8.0); NEUTROPHILS # 6.1 10^3/uL (1.5-8.5); NEUTROPHILS % 70.5 % (36.0-66.0); PLATELET COUNT, AUTOMATED 328 10^3/uL (150-450); RED BLOOD COUNT 3.48 10^6/uL (4.30-6.10); WHITE BLOOD COUNT 8.7 10^3/uL (4.0-10.0)
[2024-06-28 06:43] LABS: BLOOD UREA NITROGEN 13 MG/DL (9-23); CALCIUM LEVEL 8.5 MG/DL (8.3-10.6); CARBON DIOXIDE LEVEL 25 MMOL/L (20-31); CHLORIDE LEVEL 101 MMOL/L (98-107); CREATININE FOR GFR 1.33 MG/DL (0.70-1.30); GLOMERULAR FILTRATION RATE > 60.0 (>49); GLUCOSE, FASTING 94 MG/DL (74-106); POTASSIUM SERUM 3.5 MMOL/L (3.5-5.1); SODIUM LEVEL 133 MMOL/L (136-145)
[2024-06-28 09:02] VITALS: BP 140/88
[2024-06-28 12:00] VITALS: BP 112/78; TEMP 98.4; O2SAT 94
[2024-06-28] MEDS ORDERED: LEVO1TAB40 PO (12:37)
== END 2024-06-28 14:55 | disposition home health service (06) | DRG 193 ==
LOC: M ED 03:01 → M ED INP 03:02 → M MS5PR 09:35 → OBSVTOIN 10:46
PROVIDERS: ADMIT Internal Medicine; ATTEND Internal Medicine Nephrology
DX: J18.9 Pneumonia, unspecified organism (principal); J96.01 Acute respiratory failure with hypoxia; I42.9 Cardiomyopathy, unspecified; J44.0 Chronic obstructive pulmonary disease with (acute) lower respiratory infection; R04.2 Hemoptysis; C34.91 Malignant neoplasm of unspecified part of right bronchus or lung; D68.32 Hemorrhagic disorder due to extrinsic circulating anticoagulants; N18.30 Chronic kidney disease, stage 3 unspecified; F41.9 Anxiety disorder, unspecified; E78.5 Hyperlipidemia, unspecified; F32.A Depression, unspecified; F43.10 Post-traumatic stress disorder, unspecified; M10.9 Gout, unspecified; I12.9 Hypertensive chronic kidney disease with stage 1 through stage 4 chronic kidney disease, or unspecified chronic kidney disease; K21.9 Gastro-esophageal reflux disease without esophagitis; G40.909 Epilepsy, unspecified, not intractable, without status epilepticus; G51.0 Bell's palsy; D50.9 Iron deficiency anemia, unspecified; Z87.891 Personal history of nicotine dependence; Z98.49 Cataract extraction status, unspecified eye; Z79.01 Long term (current) use of anticoagulants; Z79.82 Long term (current) use of aspirin; Z79.899 Other long term (current) drug therapy; Z88.2 Allergy status to sulfonamides; Z88.5 Allergy status to narcotic agent; Z88.8 Allergy status to other drugs, medicaments and biological substances; Z91.030 Bee allergy status; Z90.2 Acquired absence of lung [part of]; Z92.21 Personal history of antineoplastic chemotherapy; Z86.718 Personal history of other venous thrombosis and embolism

== ENCOUNTER 2024-07-30 19:04 | Inpatient (IN) | payer OTHER, MEDICARE ==
[~2024-07-30] VITALS: Ht 190.5 cm; Wt 120.4 kg
[2024-07-30] MEDS: NS 500 ML IV ONE (20:42)
[2024-07-30] MEDS ORDERED: levETIRAcetam 250MG TABLET (KEPPRA) PO SCH (21:00)
[2024-07-30 21:10] LABS: BASO % 0.5 % (0.0-1.0); EOS # 1.1 10^3/uL (0.0-0.5); EOS % 12.4 % (0.0-3.0); HEMATOCRIT 37.5 % (42.0-52.0); HEMOGLOBIN 12.6 g/dl (13.5-17.5); LYMPH % 11.5 % (24.0-44.0); MEAN CORPUSCULAR HEMOGLOBIN 31.2 pg (27.0-33.0); MEAN CORPUSCULAR HGB CONC 33.6 g/dl (32.0-36.5); MEAN CORPUSCULAR VOLUME 92.8 fl (80.0-96.0); MONO # 0.3 10^3/uL (0.0-0.8); MONO % 3.9 % (2.0-8.0); NEUTROPHILS # 6.3 10^3/uL (1.5-8.5); NEUTROPHILS % 71.6 % (36.0-66.0); PLATELET COUNT, AUTOMATED 257 10^3/uL (150-450); RED BLOOD COUNT 4.04 10^6/uL (4.30-6.10); WHITE BLOOD COUNT 8.8 10^3/uL (4.0-10.0)
[2024-07-30 21:36] LABS: ALBUMIN 3.6 G/DL (3.2-5.2); ALKALINE PHOSPHATASE 109 U/L (46-116); ALT/SGPT 17 U/L (7.0-40); AST/SGOT 30 U/L (<34); BILIRUBIN,TOTAL 0.5 MG/DL (0.3-1.2); BLOOD UREA NITROGEN 14 MG/DL (9-23); CALCIUM LEVEL 9.6 MG/DL (8.3-10.6); CARBON DIOXIDE LEVEL 27 MMOL/L (20-31); CHLORIDE LEVEL 99 MMOL/L (98-107); CREATININE FOR GFR 1.29 MG/DL (0.70-1.30); GLOMERULAR FILTRATION RATE > 60.0 (>49); GLUCOSE, FASTING 129 MG/DL (74-106); POTASSIUM SERUM 4.8 MMOL/L (3.5-5.1); SODIUM LEVEL 134 MMOL/L (136-145); TOTAL PROTEIN 6.9 G/DL (5.7-8.2)
[2024-07-30] MEDS ORDERED: VANCOMYCIN/WATER FOR INJ 1,000 MG in IV 1 EA IP ONE (21:50)
[2024-07-30] MEDS ORDERED: VANCOMYCIN 1,000 MG/200 ML IV BAG *LOAD IV ONE (22:05)
[2024-07-30] MEDS: PIPERACILLIN/TAZOBACTAM SOD 3.375 GM in D5W MINI-BAG PLUS 50 ML IV ONE (22:26)
[2024-07-30] MEDS ORDERED: MAALOX 30 ML SUSP *UDC PO PRN (23:05)
[2024-07-30] MEDS ORDERED: FLUID PLACE HOLDER IV SCH (23:05)
[2024-07-30] MEDS ORDERED: MOM 30ML SUSPENSION UDC PO PRN (23:05)
[2024-07-30] MEDS ORDERED: VANCOMYCIN HCL IV SCH (23:05)
[2024-07-31] VITALS (7 sets, daily range): BP systolic 96–157; BP diastolic 58–94; TEMP 97.3–98.2; O2SAT 92–95
[2024-07-31] MEDS: VANCOMYCIN 1,750 MG/350 ML IV BAG *LOAD IV ONE (00:56)
[2024-07-31 01:11] LABS: VENOUS BASE EXCESS 0.8 (-2.0-2.0); VENOUS HCO3 25.8 MMOL/L (23.0-27.0); VENOUS PARTIAL PRESSURE CO2 42.6 mmHg (38.0-50.0); VENOUS PARTIAL PRESSURE O2 48.5 mmHg (30.0-50.0); VENOUS STANDARD HCO3 24.8 MMOL/L; VENOUS TOTAL CO2 27.1 MMOL/L (24.0-28.0)
[2024-07-31] MEDS: IPRATROPIUM 0.5MG/ALBUTEROL 2.5MG INH SOL UD 3ML (DUONEB) INH SCH (01:24)
[2024-07-31] MEDS ORDERED: ELIQ2.5T PO (01:25)
[2024-07-31] MEDS ORDERED: DOXE10CA PO ×2 (01:25)
[2024-07-31] MEDS ORDERED: PRIM250T8 PO (01:25)
[2024-07-31] MEDS ORDERED: ALBUTEROL 90 MCG/ACT 8GM HFA INHALER INH PRN (01:30)
[2024-07-31] MEDS ORDERED: HOME MED LIST COMPLETE! XX SCH (01:30)
[2024-07-31] MEDS ORDERED: ARTIFICIAL TEARS DROPS 15ML BTL (VISINE DRY RELIEF) OU PRN (01:30)
[2024-07-31 01:41] LABS: PERCENT SATURATION 15.2 % (19.7-50.0)
[2024-07-31 01:43] LABS: FERRITIN 46.9 NG/ML (10.5-307.3); INR 1.13; PARTIAL THROMBOPLASTIN TIME 32.6 SECONDS (24.8-34.2); PROTHROMBIN TIME 14.2 SECONDS (12.5-14.5)
[2024-07-31] MEDS ORDERED: PILL CUTTER 1 EACH XX PRN (01:55)
[2024-07-31] MEDS: diphenhydrAMINE 50MG CAP PO SCH (02:01)
[2024-07-31] MEDS: clonazePAM 0.5 MG TAB PO PRN (02:02)
[2024-07-31] MEDS: DOXEPIN 25 MG CAP PO ONE (02:09)
[2024-07-31] MEDS: CETIRIZINE (ZyrTEC) 10 MG TAB PO SCH (02:09)
[2024-07-31] MEDS: ATORVASTATIN 20 MG TAB PO SCH (02:09)
[2024-07-31] MEDS: levETIRAcetam 250MG TABLET (KEPPRA) PO SCH ×2 (02:35→20:00)
[2024-07-31] MEDS: levETIRAcetam 250MG TABLET (KEPPRA) PO ONE (02:59)
[2024-07-31] MEDS: PIPERACILLIN/TAZOBACTAM SOD 4.5 GM in D5W MINI-BAG PLUS 50 ML IV SCH (04:22)
[2024-07-31 05:16] LABS: HEMOGLOBIN 11.2 g/dl (13.5-17.5); MEAN CORPUSCULAR HEMOGLOBIN 31.6 pg (27.0-33.0); MEAN CORPUSCULAR HGB CONC 33.9 g/dl (32.0-36.5); MEAN CORPUSCULAR VOLUME 93.2 fl (80.0-96.0); PLATELET COUNT, AUTOMATED 229 10^3/uL (150-450); RED BLOOD COUNT 3.54 10^6/uL (4.30-6.10); WHITE BLOOD COUNT 8.7 10^3/uL (4.0-10.0)
[2024-07-31 05:44] LABS: ALBUMIN 3.2 G/DL (3.2-5.2); ALKALINE PHOSPHATASE 96 U/L (46-116); ALT/SGPT 14 U/L (7.0-40); AST/SGOT 11 U/L (<34); BILIRUBIN,TOTAL 0.4 MG/DL (0.3-1.2); BLOOD UREA NITROGEN 18 MG/DL (9-23); CALCIUM LEVEL 9.1 MG/DL (8.3-10.6); CARBON DIOXIDE LEVEL 25 MMOL/L (20-31); CHLORIDE LEVEL 101 MMOL/L (98-107); CREATININE FOR GFR 1.32 MG/DL (0.70-1.30); GLOMERULAR FILTRATION RATE > 60.0 (>49); GLUCOSE, FASTING 102 MG/DL (74-106); MAGNESIUM LEVEL 1.8 MG/DL (1.8-2.4); POTASSIUM SERUM 3.8 MMOL/L (3.5-5.1); SODIUM LEVEL 135 MMOL/L (136-145); TOTAL PROTEIN 6.1 G/DL (5.7-8.2)
[2024-07-31] MEDS: TIOTROPIUM INHALER/CAPSULE (SPIRIVA) INH SCH (08:00)
[2024-07-31] MEDS: ADVAIR HFA 230/21MCG INHALER INH SCH (08:04)
[2024-07-31] MEDS: AZELASTINE 137MCG NASAL SPY 30 ML (ASTELIN) SCH (08:44)
[2024-07-31] MEDS: UNRESOLVED PATIENT OWN MED ORDER XX SCH (08:44)
[2024-07-31] MEDS: VITAMIN D 1,000 INTERNATIONAL UNITS TABLET PO SCH (08:44)
[2024-07-31] MEDS: MIRALAX *UNIT DOSE* 17GM PACKET PO SCH (08:44)
[2024-07-31] MEDS: FLUTICASONE PROP 0.05% NASAL SPRAY 16 GM (FLONASE) NARES SCH (08:44)
[2024-07-31] MEDS: ASPIRIN 81MG ENTERIC TABLET PO SCH (08:45)
[2024-07-31] MEDS: allopurinoL 300 MG TAB PO SCH (08:45)
[2024-07-31] MEDS: DOCUSATE SODIUM 100MG CAPSULE PO SCH (08:45)
[2024-07-31] MEDS: FUROSEMIDE 40 MG TAB PO SCH (08:45)
[2024-07-31] MEDS: hydroCHLOROthiazide 12.5 MG CAPSULE PO SCH (08:45)
[2024-07-31] MEDS: PRIMIDONE 250 MG TAB PO SCH (08:46)
[2024-07-31] MEDS: ISOSORBIDE MON. (IMDUR) 30MG XR TAB PO SCH (08:46)
[2024-07-31] MEDS: FOLIC ACID 1MG TAB PO SCH (08:46)
[2024-07-31] MEDS: METOPROLOL TARTRATE 100MG TAB PO SCH (08:46)
[2024-07-31] MEDS: VITAMIN E 400 INTERNATIONAL UNITS CAP PO SCH (08:46)
[2024-07-31] MEDS: FLUBLOK(EGGFREE) TRIVAL(24-25) VACCINE PF 0.5ML SYRINGE 18YRS & OLDER IM.IMMUN ONE (08:48)
[2024-07-31] MEDS ORDERED: DOXEPIN 10 MG PO SCH ×2 (09:00→21:00)
[2024-07-31] MEDS: ACETAMINOPHEN 325 MG TAB PO PRN (10:01)
[2024-07-31] MEDS: VANCOMYCIN 1,000MG/200 ML IV BAG IV SCH (10:01)
[2024-07-31] MEDS: LIDOCAINE 5% (LIDODERM) PATCH TD ONE (10:03)
[2024-07-31] MEDS: OMEPRAZOLE 20MG CAP PO SCH (20:00)
[2024-08-01] VITALS: BP 138/80; TEMP 97.5; O2SAT 93
[2024-08-01 04:00] VITALS: BP 142/70; TEMP 97.7; O2SAT 91
[2024-08-01 08:00] VITALS: BP 150/83; TEMP 97.7; O2SAT 96
[2024-08-01 08:22] LABS: HEMATOCRIT 32.4 % (42.0-52.0); HEMOGLOBIN 11.1 g/dl (13.5-17.5); MEAN CORPUSCULAR HGB CONC 34.3 g/dl (32.0-36.5); MEAN CORPUSCULAR VOLUME 93.4 fl (80.0-96.0); PLATELET COUNT, AUTOMATED 250 10^3/uL (150-450); RED BLOOD COUNT 3.47 10^6/uL (4.30-6.10); WHITE BLOOD COUNT 8.2 10^3/uL (4.0-10.0)
[2024-08-01 08:45] LABS: BLOOD UREA NITROGEN 15 MG/DL (9-23); CARBON DIOXIDE LEVEL 27 MMOL/L (20-31); CHLORIDE LEVEL 100 MMOL/L (98-107); CREATININE FOR GFR 1.37 MG/DL (0.70-1.30); GLOMERULAR FILTRATION RATE > 60.0 (>49); GLUCOSE, FASTING 100 MG/DL (74-106); MAGNESIUM LEVEL 1.7 MG/DL (1.8-2.4); POTASSIUM SERUM 3.6 MMOL/L (3.5-5.1); SODIUM LEVEL 135 MMOL/L (136-145)
[2024-08-01 09:40] VITALS: BP 150/83
[2024-08-01] MEDS: LIDOCAINE 5% (LIDODERM) PATCH TD SCH (09:42)
[2024-08-01] MEDS ORDERED: LEVO1TAB40 PO (11:07)
[2024-08-01] MEDS: MAG SULF 1GM/100ML (MAG RUN) 1 GM in IV 1 EA IV SCH (11:56)
[2024-08-01 12:00] VITALS: BP_SYST 138; BP_SYST 141; BP_DIAS 81; BP_DIAS 90; TEMP 97.5; TEMP 97.9; O2SAT 90; O2SAT 94
[2024-08-01] MEDS ORDERED: RA M500C PO (12:24)
== END 2024-08-01 15:15 | disposition home or self-care (01) | DRG 194 ==
LOC: M ED 19:04 → M ED INP 22:51 → M MSPAV 07-31 00:29 → OBSVTOIN 07-31 10:36
PROVIDERS: ADMIT Student in an Organized Health Care Education/Training Program; ATTEND Student in an Organized Health Care Education/Training Program
DX: J18.9 Pneumonia, unspecified organism (principal); R04.2 Hemoptysis; J44.9 Chronic obstructive pulmonary disease, unspecified; I12.9 Hypertensive chronic kidney disease with stage 1 through stage 4 chronic kidney disease, or unspecified chronic kidney disease; G40.909 Epilepsy, unspecified, not intractable, without status epilepticus; N18.30 Chronic kidney disease, stage 3 unspecified; E78.5 Hyperlipidemia, unspecified; K21.9 Gastro-esophageal reflux disease without esophagitis; M10.9 Gout, unspecified; I25.10 Atherosclerotic heart disease of native coronary artery without angina pectoris; Z92.21 Personal history of antineoplastic chemotherapy; Z85.118 Personal history of other malignant neoplasm of bronchus and lung; Z88.2 Allergy status to sulfonamides; Z91.030 Bee allergy status; Z88.8 Allergy status to other drugs, medicaments and biological substances; Z79.899 Other long term (current) drug therapy; F41.9 Anxiety disorder, unspecified; F32.A Depression, unspecified; Z98.49 Cataract extraction status, unspecified eye; D50.9 Iron deficiency anemia, unspecified

== ENCOUNTER → 2024-09-05 | Outpatient (CLI) | payer MEDICARE, OTHER ==
[~2024-09-05] MED LIST changes: -AZEL0.1S; -AZEL0.1S NARES; +AZEL137S8; +AZEL137S8 NARES; +DOXE10CA PO; +GASTROGRAFIN SOLUTION 30ML ONE; +ISOVUE-370 76% 100ML VIAL ONE; +PRAZ1CAP; +PRIM250T8 PO; +RA M500C PO
== END ==
LOC: M PLAIMG 08:55
PROVIDERS: ATTEND Internal Medicine Hematology & Oncology
DX: Z87.891 Personal history of nicotine dependence (principal)
CPT/HCPCS: 71260; 74177; Q9963; Q9967

== ENCOUNTER → 2024-09-13 | Outpatient (REF) | payer OTHER ==
[~2024-09-13] MED LIST changes: -ADV250INH INH; +ADVA1AER9 INH; -GASTROGRAFIN SOLUTION 30ML ONE; -ISOVUE-370 76% 100ML VIAL ONE
[2024-09-13 15:07] LABS: APPEARANCE, URINE CLEAR (CLEAR); BACTERIA, URINE AUTO NEGATIVE (NEGATIVE); BILIRUBIN, URINE AUTO NEGATIVE (NEGATIVE); BLOOD, URINE BLOOD NEGATIVE (NEGATIVE); COLOR, URINE YELLOW (YELLOW); GLUCOSE, URINE (UA) AUTO NEGATIVE (NEGATIVE); KETONE, URINE AUTO NEGATIVE (NEGATIVE); LEUKOCYTE ESTERASE, URINE AUTO NEGATIVE (NEGATIVE); MUCUS, URINE SMALL (NEGATIVE); NITRITE, URINE AUTO NEGATIVE (NEGATIVE); PROTEIN, URINE AUTO NEGATIVE (NEGATIVE); RBC, URINE AUTO 0 /HPF (0-3); SPECIFIC GRAVITY URINE AUTO 1.013 (1.002-1.035); SQUAMOUS EPITHELIAL CELL UR AU 0 /HPF (0-6); UROBILINOGEN, URINE AUTO 0.2 mg/dL (0.0-2.0); WBC, URINE AUTO 1 /HPF (0-3)
== END ==
LOC: M SMT 14:45
PROVIDERS: ATTEND Physician Assistant
DX: R10.9 Unspecified abdominal pain (principal)

== ENCOUNTER 2024-11-10 07:50 | Day surgery (SDC) | payer MEDICARE, OTHER ==
[~2024-11-10] VITALS: Ht 190.5 cm; Wt 115.7 kg
[~2024-11-10 07:50] MED LIST changes: -ADV500INH INH; +ADVA1AER10 INH; -PRAZ1CAP; -RA V400C PO; +VITA268C PO
[2024-11-10 10:41] VITALS: TEMP 97.2
[2024-11-10 11:05] VITALS: BP 138/83; O2SAT 97
== END 2024-11-10 11:25 | disposition home or self-care (01) ==
LOC: M OPP 07:50
PROVIDERS: ATTEND Surgery
DX: D12.8 Benign neoplasm of rectum (principal); D12.7 Benign neoplasm of rectosigmoid junction; D12.4 Benign neoplasm of descending colon; D12.3 Benign neoplasm of transverse colon; D12.2 Benign neoplasm of ascending colon; Q43.8 Other specified congenital malformations of intestine; Z86.0100 Personal history of colon polyps, unspecified; Z88.6 Allergy status to analgesic agent; Z88.2 Allergy status to sulfonamides; Z88.1 Allergy status to other antibiotic agents; Z79.01 Long term (current) use of anticoagulants

== ENCOUNTER → 2024-12-06 | Outpatient (REF) | payer OTHER | LOC: M LAB REF 10:47 | PROVIDERS: ATTEND Internal Medicine Pulmonary Disease | DX: J06.9 Acute upper respiratory infection, unspecified (principal) ==

== ENCOUNTER → 2024-12-06 | Outpatient (CLI) | payer OTHER | LOC: M RAD 14:22 | PROVIDERS: ATTEND Internal Medicine Pulmonary Disease | DX: J06.9 Acute upper respiratory infection, unspecified (principal) ==

== ENCOUNTER → 2024-12-18 | Outpatient (CLI) | payer OTHER ==
[~2024-12-18] MED LIST changes: +ACET-683 PO; +ISOVUE-370 76% 100ML VIAL As Ordered ONE
== END ==
LOC: M RAD 13:35
PROVIDERS: ATTEND Internal Medicine Medical Oncology
DX: C34.90 Malignant neoplasm of unspecified part of unspecified bronchus or lung (principal)
CPT/HCPCS: 71260; 74177; Q9967

== ENCOUNTER → 2025-01-29 | Outpatient (CLI) | payer MEDICARE, OTHER ==
[~2025-01-29] MED LIST changes: -ISOVUE-370 76% 100ML VIAL As Ordered ONE
== END ==
LOC: M PLAIMG 13:51
PROVIDERS: ATTEND Internal Medicine Pulmonary Disease
DX: R91.8 Other nonspecific abnormal finding of lung field (principal); I70.0 Atherosclerosis of aorta

== ENCOUNTER 2025-03-01 19:01 | Emergency (ER) | payer OTHER ==
[~2025-03-01] VITALS: Ht 190.5 cm; Wt 114.4 kg
[~2025-03-01 19:01] MED LIST changes: +CENT1TAB2 PO; -PRED50TA PO; +PRED50TA57 PO
[2025-03-01 19:06] VITALS: TEMP 99.3
[2025-03-01 20:54] LABS: BASO % 0.3 % (0.0-1.0); EOS # 0.2 10^3/uL (0.0-0.5); HEMATOCRIT 29.3 % (42.0-52.0); HEMOGLOBIN 9.9 g/dl (13.5-17.5); LYMPH # 1.1 10^3/uL (1.5-5.0); LYMPH % 7.7 % (24.0-44.0); MEAN CORPUSCULAR HGB CONC 33.8 g/dl (32.0-36.5); MEAN CORPUSCULAR VOLUME 88.8 fl (80.0-96.0); MONO % 6.6 % (2.0-8.0); NEUTROPHILS # 12.3 10^3/uL (1.5-8.5); NEUTROPHILS % 84.1 % (36.0-66.0); PLATELET COUNT, AUTOMATED 670 10^3/uL (150-450); WHITE BLOOD COUNT 14.6 10^3/uL (4.0-10.0)
[2025-03-01 21:19] LABS: URIC ACID 5.8 MG/DL (3.7-9.2)
[2025-03-01 21:22] LABS: BLOOD UREA NITROGEN 9 MG/DL (9-23); CALCIUM LEVEL 8.8 MG/DL (8.3-10.6); CARBON DIOXIDE LEVEL 30 MMOL/L (20-31); CHLORIDE LEVEL 96 MMOL/L (98-107); CREATININE FOR GFR 1.14 MG/DL (0.70-1.30); GLOMERULAR FILTRATION RATE 70.5 (>49); GLUCOSE, FASTING 109 MG/DL (74-106); POTASSIUM SERUM 3.5 MMOL/L (3.5-5.1); SODIUM LEVEL 137 MMOL/L (136-145)
[2025-03-02 01:25] LABS: ALBUMIN 2.8 G/DL (3.2-5.2); ALKALINE PHOSPHATASE 142 U/L (40-129); ALT/SGPT 14 U/L (7.0-40); AST/SGOT 12 U/L (<34); BILIRUBIN,DIRECT 0.2 MG/DL (<0.4); BILIRUBIN,TOTAL 0.6 MG/DL (0.3-1.2); CK-MB VALUE MASS < 1.0 NG/ML (<3.6); CPK CREATINE PHOSPHOKINASE 62 U/L (46-171); MB/CK RELATIVE INDEX 1.61 (< OR =4); PREALBUMIN 9.2 MG/DL (10.0-40.0); TOTAL PROTEIN 6.2 G/DL (5.7-8.2)
[2025-03-02] MEDS ORDERED: LASI20TA3 PO (03:46)
[2025-03-02] MEDS ORDERED: POTA10TA67 PO (03:46)
[2025-03-02] MEDS ORDERED: PERC5TAB12 PO (03:46)
[2025-03-02] MEDS ORDERED: PRED20TA PO (03:46)
[2025-03-02] MEDS: PERCOCET 5MG/325MG TAB PO ONE (03:56)
[2025-03-02 04:00] VITALS: BP 156/94; O2SAT 94
== END 2025-03-02 04:06 | disposition home or self-care (01) ==
LOC: M ED 19:01
DX: R22.43 Localized swelling, mass and lump, lower limb, bilateral (principal); M54.50 Low back pain, unspecified; E78.5 Hyperlipidemia, unspecified; I10 Essential (primary) hypertension; Z87.891 Personal history of nicotine dependence; Z79.52 Long term (current) use of systemic steroids; Z79.1 Long term (current) use of non-steroidal anti-inflammatories (NSAID); Z79.899 Other long term (current) drug therapy; Z79.4 Long term (current) use of insulin; Z88.2 Allergy status to sulfonamides; Z88.6 Allergy status to analgesic agent; Z88.8 Allergy status to other drugs, medicaments and biological substances; Z91.030 Bee allergy status; Z87.39 Personal history of other diseases of the musculoskeletal system and connective tissue

== ENCOUNTER → 2025-03-05 | Outpatient (CLI) | payer OTHER ==
[~2025-03-05] MED LIST changes: +LASI20TA3 PO; +POTA10TA67 PO
== END ==
LOC: M PLARAD 12:44
PROVIDERS: ATTEND Internal Medicine Pulmonary Disease
DX: R91.8 Other nonspecific abnormal finding of lung field (principal)
CPT/HCPCS: 78815; A9552

== ENCOUNTER → 2025-05-04 | Outpatient (CLI) | payer MEDICARE, OTHER ==
[~2025-05-04] MED LIST changes: +HOME MED LIST COMPLETE! XX SCH; +K-PHTAB2 PO; +LIDOCAINE 1% MDV 20 ML VIAL As Ordered ONE; +MAGN400T2 PO; +SOD250TA2
[2025-05-04 11:40] VITALS: TEMP 97.7
[2025-05-04 12:19] LABS: INR 0.99
[2025-05-04 15:00] VITALS: BP 133/81; O2SAT 99
== END ==
LOC: M IRPRO 11:29
PROVIDERS: ATTEND Internal Medicine Pulmonary Disease
DX: R91.1 Solitary pulmonary nodule (principal); Z79.01 Long term (current) use of anticoagulants

== ENCOUNTER → 2025-08-22 | Outpatient (CLI) | payer MEDICARE, OTHER ==
[~2025-08-22] MED LIST changes: -DIPH50CA PO; +DIPH50CA31 PO; -HOME MED LIST COMPLETE! XX SCH; +HYDR12.510 PO; -HYDR12CA PO; -LIDOCAINE 1% MDV 20 ML VIAL As Ordered ONE
== END ==
LOC: M PLAIMG 09:27
PROVIDERS: ATTEND Internal Medicine Pulmonary Disease
DX: R91.8 Other nonspecific abnormal finding of lung field (principal)